=== PATIENT | female | born 1970 | race Caucasian/White ===

== ENCOUNTER 2017-10-04 14:20 | Inpatient (IN) | payer MEDICAID ==
[~2017-10-04] VITALS: Ht 170.2 cm; Wt 65.0 kg
[~2017-10-04 14:20] MED LIST: ALBU6.7H INH; ASPI-611 PO; BECL7.3A INH; GABA600T PO; INSU100V11 SQ; INSU100V9 SQ; LIRA0.6P SQ; LISI2.5T89 PO; METF500T7 PO; OMEP20TA5 PO; ONDA4TAB12 PO; PARO-62 PO; SIMV20TA5 PO; VAL5T PO
[2017-10-04] MEDS ORDERED: normal saline 1000ML IV soln IVB ONE (14:35)
[2017-10-04] MEDS ORDERED: insulin regular, human 100 UNIT in normal saline 100ml IV soln 100 ML IV PRN ×2 (14:45)
[2017-10-04] MEDS ORDERED: morphine 5 MG/ML injection IV ONE (15:25)
[2017-10-04 15:26] LABS: ABG BASE EXCESS -32.2 mmol/L (-2.0-3.0); ABG HCO3 1.8 mmol/L (22.0-26.0); ABG OXYGEN SATURATION 98.2 % (95-98); ABG PCO2 (T) 11.8 mmHg (32.0-45.0); ABG PH (T) 6.794 (7.350-7.450); ABG PO2 (T) 139.9 mmHg (83-108); FCOHb 0.6 % (0.5-1.5); FMetHb 0.4 % (0.3-1.12); FO2Hb 97.2 % (94-100); TOTAL HEMOGLOBIN 15.5 G/dl (12.0-16.0)
[2017-10-04 15:37] LABS: BASOPHILS # (AUTO) 0.1 X10'3 (0-0.2); BASOPHILS % (AUTO) 0.2 % (0-1); EOSINOPHILS % (AUTO) 0 % (0-6); HEMOGLOBIN 11.5 g/dl (12.0-16.0); LYMPHOCYTES # (AUTO) 1.2 X10'3 (1.1-4.8); LYMPHOCYTES % (AUTO) 4.6 % (21-51); MEAN CORPUSCULAR HEMOGLOBIN 29.7 PG (27.0-31.0); MEAN CORPUSCULAR HGB CONC 32.8 % (33.0-36.5); MEAN CORPUSCULAR VOLUME 90.5 FL (78-98); MEAN PLATELET VOLUME 9.4 FL (7.4-10.4); MONOCYTES # (AUTO) 1.3 X10'3 (0-0.9); MONOCYTES % (AUTO) 4.7 % (2-12); NEUTROPHILS # (AUTO) 24.2 X10'3 (1.8-7.7); NEUTROPHILS % (AUTO) 90.5 % (42-75); PLATELET COUNT 232 X10'3 (140-440); RED BLOOD COUNT 3.86 X10'6 (4.20-5.60); RED CELL DISTRIBUTION WIDTH 13.5 % (11.5-14.5)
[2017-10-04 15:43] LABS: WHITE BLOOD COUNT 26.8 X10'3 (4.5-11.0)
[2017-10-04 15:56] LABS: ALANINE AMINOTRANSFERASE 40 U/L (12-78); ALBUMIN 2.1 G/DL (3.4-5.0); ALKALINE PHOSPHATASE 77 IU/L (46-116); ASPARTATE AMINO TRANSFERASE 27 U/L (10-37); BILIRUBIN,TOTAL 0.3 MG/DL (0.1-1.0); BLOOD UREA NITROGEN 29 MG/DL (7-18); BUN/CREATININE RATIO 27.9 (6.6-38.0); CHLORIDE 105 MMOL/L (99-107); CREATININE 1.04 MG/DL (0.40-0.90); MAGNESIUM 1.4 MG/DL (1.5-2.4); PHOSPHORUS 4.9 MG/DL (2.3-4.5); POTASSIUM 3.9 MMOL/L (3.5-5.1); SODIUM 136 MMOL/L (135-145); TOTAL PROTEIN 4.3 G/DL (6.4-8.2); eGFR 56 ML/MIN
[2017-10-04 15:58] LABS: ANION GAP 26 (8-16)
[2017-10-04 15:59] LABS: GLUCOSE 570 MG/DL (70-104); TOTAL CARBON DIOXIDE < 5 MMOL/L (24-32)
[2017-10-04 16:04] LABS: PLATELET ESTIMATE NORMAL; TOTAL CELLS COUNTED 100
[2017-10-04 16:05] LABS: BURR CELLS 1+
[2017-10-04] MEDS ORDERED: sodium phosphate inj. 30 MMOL in dextrose 5%-water 250 ML IV PRN (16:35)
[2017-10-04] MEDS ORDERED: potassium Cl 20 mEq SR tablet PO PRN ×2 (16:35)
[2017-10-04] MEDS ORDERED: insulin regular, human 10 units/0.1 ml syringe SQ PRN (16:35)
[2017-10-04] MEDS ORDERED: sodium phosphate inj. 15 MMOL in dextrose 5%-water 150 ML IV PRN (16:35)
[2017-10-04] MEDS ORDERED: potassium Cl 40MEQ/NS 500ml 500 ML IV PRN ×2 (16:35)
[2017-10-04] MEDS ORDERED: Neutra Phos packet PO PRN (16:35)
[2017-10-04] MEDS ORDERED: vancomycin/NS 1 GM ADD-VANTAGE 250 ML IV ONE (18:37)
[2017-10-04] MEDS: [UNRECOGNIZED DRUG - OTHER] IV SCH ×4 (18:41)
[2017-10-04] MEDS: SODIUM BICARBONATE IV SCH ×4 (18:41)
[2017-10-04] MEDS: POTASSIUM CL IV SCH ×4 (18:41)
[2017-10-04] MEDS: normal saline 1000ml 1,000 ML IV SCH ×2 (18:44→19:46)
[2017-10-04] MEDS: aztreonam inj. 2,000 MG in normal saline 100ml IV soln 100 ML IV SCH (19:15)
[2017-10-04 20:11] LABS: ALANINE AMINOTRANSFERASE 65 U/L (12-78); ALBUMIN 3.3 G/DL (3.4-5.0); ALKALINE PHOSPHATASE 118 IU/L (46-116); ANION GAP 27 (8-16); ASPARTATE AMINO TRANSFERASE 41 U/L (10-37); BILIRUBIN,TOTAL 0.4 MG/DL (0.1-1.0); BLOOD UREA NITROGEN 35 MG/DL (7-18); BUN/CREATININE RATIO 25.4 (6.6-38.0); CHLORIDE 101 MMOL/L (99-107); CREATININE 1.38 MG/DL (0.40-0.90); PHOSPHORUS 4.7 MG/DL (2.3-4.5); POTASSIUM 4.7 MMOL/L (3.5-5.1); SODIUM 135 MMOL/L (135-145); TOTAL PROTEIN 6.7 G/DL (6.4-8.2); eGFR 41 ML/MIN
[2017-10-04 20:19] LABS: GLUCOSE 455 MG/DL (70-104); TOTAL CARBON DIOXIDE 7.4 MMOL/L (24-32)
[2017-10-04] MEDS: insulin regular, DKA only 100 UNIT in normal saline 100ml IV soln 99 ML IV SCH ×4 (20:31→22:34)
[2017-10-04] MEDS ORDERED: DEXTROSE 10 % AND 0.45 % NACL 1,000 ML IV PRN (21:05)
[2017-10-04] MEDS ORDERED: 1/4 NS IV PRN (21:05)
[2017-10-04] MEDS ORDERED: POTASSIUM CL IV PRN (21:05)
[2017-10-04] MEDS ORDERED: DEXTROSE 5% IV PRN (21:05)
[2017-10-04] MEDS ORDERED: Potassium Cl inj 20 MEQ in DEXTROSE 10 % AND 0.45 % NACL 1,000 ML IV PRN (21:05)
[2017-10-04] MEDS ORDERED: Potassium Cl inj 20 MEQ in dextrose 5%-1/2 normal saline 1,000 ML IV PRN (21:10)
[2017-10-04 22:51] LABS: ALBUMIN 2.9 G/DL (3.4-5.0); ANION GAP 22 (8-16); BLOOD UREA NITROGEN 34 MG/DL (7-18); BUN/CREATININE RATIO 28.8 (6.6-38.0); CALCIUM 7.2 MG/DL (8.5-10.1); CHLORIDE 107 MMOL/L (99-107); CREATININE 1.18 MG/DL (0.40-0.90); GLUCOSE 301 MG/DL (70-104); PHOSPHORUS 3.3 MG/DL (2.3-4.5); SODIUM 138 MMOL/L (135-145); eGFR 49 ML/MIN
[2017-10-04 22:53] LABS: TOTAL CARBON DIOXIDE 8.6 MMOL/L (24-32)
[2017-10-04 23:15] VITALS: BP 90/56
[2017-10-05 00:01] LABS: ABG BASE EXCESS -19.5 mmol/L (-2.0-3.0); ABG HCO3 7.5 mmol/L (22.0-26.0); ABG OXYGEN SATURATION 95.1 % (95-98); ABG PCO2 (T) 21.9 mmHg (32.0-45.0); ABG PH (T) 7.151 (7.350-7.450); ABG PO2 (T) 67.8 mmHg (83-108); ALLEN'S TEST Positive; FCOHb 0.1 % (0.5-1.5); FMetHb 0.2 % (0.3-1.12); FO2Hb 94.8 % (94-100)
[2017-10-05] MEDS: dextrose 5%-1/2 normal saline 1,000 ML IV PRN ×3 (00:03→09:18)
[2017-10-05] MEDS: aztreonam inj. 2,000 MG in normal saline 100ml IV soln 100 ML IV SCH ×3 (00:47→16:37)
[2017-10-05] MEDS ORDERED: insulin R INFUSION 1 ML IV ONE (01:58)
[2017-10-05] MEDS: POTASSIUM CL IV SCH ×16 (02:32→18:24)
[2017-10-05] MEDS: SODIUM BICARBONATE IV SCH ×16 (02:32→18:24)
[2017-10-05] MEDS: [UNRECOGNIZED DRUG - OTHER] IV SCH ×16 (02:32→18:24)
[2017-10-05] MEDS: insulin regular, DKA only 100 UNIT in normal saline 100ml IV soln 99 ML IV SCH ×4 (02:47→09:42)
[2017-10-05 02:48] LABS: ALANINE AMINOTRANSFERASE 49 U/L (12-78); ALBUMIN 2.6 G/DL (3.4-5.0); ALBUMIN/GLOBULIN RATIO 0.9 (1.1-1.5); ALKALINE PHOSPHATASE 87 IU/L (46-116); ANION GAP 15 (8-16); ASPARTATE AMINO TRANSFERASE 26 U/L (10-37); BILIRUBIN,TOTAL 0.4 MG/DL (0.1-1.0); BLOOD UREA NITROGEN 31 MG/DL (7-18); BUN/CREATININE RATIO 28.2 (6.6-38.0); CALCIUM 6.9 MG/DL (8.5-10.1); CHLORIDE 110 MMOL/L (99-107); GLUCOSE 181 MG/DL (70-104); MAGNESIUM 2.2 MG/DL (1.5-2.4); PHOSPHORUS 1.9 MG/DL (2.3-4.5); POTASSIUM 4.2 MMOL/L (3.5-5.1); SODIUM 138 MMOL/L (135-145); TOTAL PROTEIN 5.4 G/DL (6.4-8.2); eGFR 53 ML/MIN
[2017-10-05 02:50] LABS: TOTAL CARBON DIOXIDE 13.3 MMOL/L (24-32)
[2017-10-05 03:00] VITALS: BP 97/62
[2017-10-05 06:00] VITALS: BP 99/60
[2017-10-05 06:24] LABS: BASOPHILS % (AUTO) 0 % (0-1); EOSINOPHILS # (AUTO) 0.2 X10'3 (0-0.9); HEMATOCRIT 37.2 % (35.0-45.0); HEMOGLOBIN 12.5 g/dl (12.0-16.0); LYMPHOCYTES # (AUTO) 1.5 X10'3 (1.1-4.8); LYMPHOCYTES % (AUTO) 7.5 % (21-51); MEAN CORPUSCULAR HEMOGLOBIN 29.9 PG (27.0-31.0); MEAN CORPUSCULAR HGB CONC 33.6 % (33.0-36.5); MEAN CORPUSCULAR VOLUME 89.1 FL (78-98); MEAN PLATELET VOLUME 9.1 FL (7.4-10.4); MONOCYTES # (AUTO) 0.6 X10'3 (0-0.9); MONOCYTES % (AUTO) 3.1 % (2-12); NEUTROPHILS # (AUTO) 17.4 X10'3 (1.8-7.7); NEUTROPHILS % (AUTO) 88.4 % (42-75); PLATELET COUNT 165 X10'3 (140-440); RED BLOOD COUNT 4.18 X10'6 (4.20-5.60); RED CELL DISTRIBUTION WIDTH 13.5 % (11.5-14.5); WHITE BLOOD COUNT 19.7 X10'3 (4.5-11.0)
[2017-10-05 06:29] LABS: ALANINE AMINOTRANSFERASE 48 U/L (12-78); ALBUMIN 2.4 G/DL (3.4-5.0); ALBUMIN/GLOBULIN RATIO 0.9 (1.1-1.5); ALKALINE PHOSPHATASE 80 IU/L (46-116); ANION GAP 12 (8-16); ASPARTATE AMINO TRANSFERASE 22 U/L (10-37); BILIRUBIN,TOTAL 0.2 MG/DL (0.1-1.0); BLOOD UREA NITROGEN 28 MG/DL (7-18); BUN/CREATININE RATIO 26.7 (6.6-38.0); CALCIUM 6.9 MG/DL (8.5-10.1); CHLORIDE 111 MMOL/L (99-107); CREATININE 1.05 MG/DL (0.40-0.90); GLUCOSE 161 MG/DL (70-104); MAGNESIUM 2.4 MG/DL (1.5-2.4); POTASSIUM 4.2 MMOL/L (3.5-5.1); SODIUM 139 MMOL/L (135-145); TOTAL CARBON DIOXIDE 16.2 MMOL/L (24-32); TOTAL PROTEIN 5.1 G/DL (6.4-8.2); eGFR 56 ML/MIN
[2017-10-05] MEDS: K and/or MAG REPLACEMENT MC SCH (08:00)
[2017-10-05] MEDS: PARoxetine 20mg tablet PO SCH (08:00)
[2017-10-05] MEDS ORDERED: vancomycin/NS 1 GM ADD-VANTAGE 250 ML IV SCH (08:00)
[2017-10-05 08:37] LABS: PLATELET ESTIMATE NORMAL; TOTAL CELLS COUNTED 100
[2017-10-05 08:38] LABS: BURR CELLS 2+
[2017-10-05 08:39] LABS: GIANT PLATELET FEW; HYPOGRANULAR PLATELETS FEW; LARGE PLATELETS FEW
[2017-10-05 08:40] LABS: SCHISTOCYTES FEW
[2017-10-05] MEDS: VANCOMYCIN 750MG IV in NS 250 ML IV SCH ×2 (10:39→20:23)
[2017-10-05 11:00] VITALS: BP 100/57
[2017-10-05 11:15] LABS: CLARITY,URINE CLOUDY (Clear); COLOR,URINE YELLOW (Yellow); GLUCOSE, URINE >=1000 mg/dl (Neg); KETONES,URINE >=80 mg/dl (Neg); LEUKOCYTE ESTERASE ,URINE NEGATIVE (Neg); NITRITES, URINE NEGATIVE (Neg); OCCULT BLOOD,URINE TRACE-INTACT (Neg); PH,URINE 5.5 (4.8-8.0); PROTEIN,URINE TRACE mg/dl (Neg); UA COLLECTION TYPE NON-SPECIFIED; UROBILINOGEN,URINE 0.2 E.U/dL (0.2-1.0)
[2017-10-05 11:26] LABS: URINE AMPHETAMINE SCREEN NEGATIVE (Neg); URINE BARBITUATE SCREEN NEGATIVE (Neg); URINE BENZODIAZEPINES SCREEN POSITIVE (Neg); URINE CANNABINOID SCREEN NEGATIVE (Neg); URINE COCAINE SCREEN NEGATIVE (Neg); URINE METHADONE SCREEN NEGATIVE (Neg); URINE OPIATE SCREEN POSITIVE (Neg); URINE PHENCYCLIDINE SCREEN NEGATIVE (Neg)
[2017-10-05 11:27] LABS: ALBUMIN 2.6 G/DL (3.4-5.0); AMYLASE 395 U/L (25-115); ANION GAP 9 (8-16); BLOOD UREA NITROGEN 25 MG/DL (7-18); BUN/CREATININE RATIO 24.3 (6.6-38.0); CALCIUM 7.2 MG/DL (8.5-10.1); CHLORIDE 110 MMOL/L (99-107); CREATININE 1.03 MG/DL (0.40-0.90); GLUCOSE 122 MG/DL (70-104); LIPASE 195 U/L (73-393); PHOSPHORUS 1.6 MG/DL (2.3-4.5); POTASSIUM 4.3 MMOL/L (3.5-5.1); SODIUM 138 MMOL/L (135-145); TOTAL CARBON DIOXIDE 19.1 MMOL/L (24-32); eGFR 57 ML/MIN
[2017-10-05 11:30] LABS: SQUAMOUS EPITHELIAL CELL,UR MODERATE /LPF (FEW)
[2017-10-05] MEDS ORDERED: albuterol 2.5 MG/3 ML nebule NEB PRN (11:30)
[2017-10-05 11:32] LABS: FINE GRANULAR CAST >30 /LPF (NEGATIVE)
[2017-10-05 11:34] LABS: AMORPHOUS URATES 1+; BACTERIA,URINE 1+ /HPF (Neg); RBC,URINE 0-2 /HPF (0-2); WBC,URINE 0-4 /HPF (0-4); YEAST MODERATE /HPF (NEGATIVE)
[2017-10-05] MEDS ORDERED: MESSAGE TO PHARMACY PO ONE (11:50)
[2017-10-05] MEDS ORDERED: dextrose ORAL solution 15 GM/59 ML bottle PO PRN ×2 (11:50)
[2017-10-05] MEDS ORDERED: dextrose 50%-water 50ml dispensing syringe IV PRN ×2 (11:50)
[2017-10-05] MEDS ORDERED: glucagon, human recombinant 1mg kit SUBCUT PRN (11:50)
[2017-10-05] MEDS ORDERED: ondansetron 4mg rapidly disintigrating tab PO ONE (16:00)
[2017-10-05] MEDS: insulin Lispro (HumaLOG) vial - multi-dose SQ SCH ×2 (16:45→18:58)
[2017-10-05] MEDS ORDERED: ondansetron 4mg rapidly disintigrating tab PO PRN (17:25)
[2017-10-05 19:00] VITALS: BP 92/50
[2017-10-05 20:50] LABS: ALANINE AMINOTRANSFERASE 48 U/L (12-78); ALBUMIN 2.4 G/DL (3.4-5.0); ALBUMIN/GLOBULIN RATIO 0.9 (1.1-1.5); ALKALINE PHOSPHATASE 79 IU/L (46-116); ANION GAP 9 (8-16); ASPARTATE AMINO TRANSFERASE 29 U/L (10-37); BILIRUBIN,TOTAL 0.3 MG/DL (0.1-1.0); BLOOD UREA NITROGEN 22 MG/DL (7-18); CALCIUM 6.9 MG/DL (8.5-10.1); CHLORIDE 108 MMOL/L (99-107); GLUCOSE 246 MG/DL (70-104); PHOSPHORUS 1.4 MG/DL (2.3-4.5); POTASSIUM 4.2 MMOL/L (3.5-5.1); SODIUM 136 MMOL/L (135-145); TOTAL CARBON DIOXIDE 19.3 MMOL/L (24-32); TOTAL PROTEIN 5.1 G/DL (6.4-8.2); eGFR 59 ML/MIN
[2017-10-05] MEDS: diatr meglu/diatrizoate 30ml oral sol.-(3 dose) bottle PO SCH (21:34)
[2017-10-05] MEDS: Insulin Detemir pen SQ SCH (21:42)
[2017-10-05 23:00] VITALS: BP 94/60
[2017-10-06] MEDS: aztreonam inj. 2,000 MG in normal saline 100ml IV soln 100 ML IV SCH ×2 (00:06→07:28)
[2017-10-06 03:00] VITALS: BP 98/60
[2017-10-06] MEDS: SODIUM BICARBONATE IV SCH ×8 (03:21→10:35)
[2017-10-06] MEDS: POTASSIUM CL IV SCH ×8 (03:21→10:35)
[2017-10-06] MEDS: [UNRECOGNIZED DRUG - OTHER] IV SCH ×8 (03:21→10:35)
[2017-10-06 06:00] VITALS: BP 93/55
[2017-10-06 06:15] LABS: ALANINE AMINOTRANSFERASE 41 U/L (12-78); ALBUMIN 2.3 G/DL (3.4-5.0); ALBUMIN/GLOBULIN RATIO 0.9 (1.1-1.5); ANION GAP 6 (8-16); ASPARTATE AMINO TRANSFERASE 21 U/L (10-37); BILIRUBIN,TOTAL 0.3 MG/DL (0.1-1.0); BLOOD UREA NITROGEN 17 MG/DL (7-18); BUN/CREATININE RATIO 23.6 (6.6-38.0); CALCIUM 7.3 MG/DL (8.5-10.1); CHLORIDE 110 MMOL/L (99-107); CREATININE 0.72 MG/DL (0.40-0.90); GLUCOSE 63 MG/DL (70-104); MAGNESIUM 3.4 MG/DL (1.5-2.4); SODIUM 141 MMOL/L (135-145); TOTAL CARBON DIOXIDE 25.5 MMOL/L (24-32); eGFR 86 ML/MIN
[2017-10-06 06:16] LABS: ALKALINE PHOSPHATASE 76 IU/L (46-116)
[2017-10-06] MEDS: diatr meglu/diatrizoate 30ml oral sol.-(3 dose) bottle PO SCH ×2 (07:27→08:44)
[2017-10-06] MEDS: K and/or MAG REPLACEMENT MC SCH (08:00)
[2017-10-06] MEDS: PARoxetine 20mg tablet PO SCH (08:43)
[2017-10-06] MEDS: VANCOMYCIN 750MG IV in NS 250 ML IV SCH (08:45)
[2017-10-06 11:00] VITALS: BP 95/60
[2017-10-06 11:21] LABS: ALANINE AMINOTRANSFERASE 46 U/L (12-78); ALBUMIN 2.4 G/DL (3.4-5.0); ALBUMIN/GLOBULIN RATIO 0.9 (1.1-1.5); ALKALINE PHOSPHATASE 86 IU/L (46-116); ANION GAP 4 (8-16); ASPARTATE AMINO TRANSFERASE 45 U/L (10-37); BILIRUBIN,TOTAL 0.4 MG/DL (0.1-1.0); BLOOD UREA NITROGEN 16 MG/DL (7-18); CALCIUM 7.3 MG/DL (8.5-10.1); CHLORIDE 111 MMOL/L (99-107); CREATININE 0.84 MG/DL (0.40-0.90); GLUCOSE 97 MG/DL (70-104); MAGNESIUM 3.4 MG/DL (1.5-2.4); POTASSIUM 4.3 MMOL/L (3.5-5.1); SODIUM 141 MMOL/L (135-145); TOTAL CARBON DIOXIDE 26.3 MMOL/L (24-32); TOTAL PROTEIN 5.1 G/DL (6.4-8.2); eGFR 72 ML/MIN
[2017-10-06] MEDS: insulin Lispro (HumaLOG) vial - multi-dose SQ SCH ×3 (14:28→21:37)
[2017-10-06 15:00] VITALS: BP 106/64
[2017-10-06 19:00] VITALS: BP 112/70
[2017-10-06] MEDS ORDERED: VANCOMYCIN LEVEL IV ONE (19:30)
[2017-10-06] MEDS ORDERED: vancomycin/NS 1 GM ADD-VANTAGE 250 ML IV SCH (20:00)
[2017-10-06] MEDS: Insulin Detemir pen SQ SCH (21:36)
[2017-10-06 23:00] VITALS: BP 102/64
[2017-10-07 03:00] VITALS: BP 101/62
[2017-10-07 05:47] LABS: BASOPHILS % (AUTO) 0.4 % (0-1); EOSINOPHILS % (AUTO) 0.6 % (0-6); HEMATOCRIT 34.9 % (35.0-45.0); HEMOGLOBIN 11.6 g/dl (12.0-16.0); LYMPHOCYTES # (AUTO) 2.3 X10'3 (1.1-4.8); LYMPHOCYTES % (AUTO) 29.1 % (21-51); MEAN CORPUSCULAR HEMOGLOBIN 29.6 PG (27.0-31.0); MEAN CORPUSCULAR HGB CONC 33.2 % (33.0-36.5); MEAN CORPUSCULAR VOLUME 89.1 FL (78-98); MEAN PLATELET VOLUME 8.8 FL (7.4-10.4); MONOCYTES # (AUTO) 0.4 X10'3 (0-0.9); MONOCYTES % (AUTO) 5.6 % (2-12); NEUTROPHILS # (AUTO) 5.1 X10'3 (1.8-7.7); NEUTROPHILS % (AUTO) 64.3 % (42-75); PLATELET COUNT 114 X10'3 (140-440); RED BLOOD COUNT 3.92 X10'6 (4.20-5.60); RED CELL DISTRIBUTION WIDTH 14.4 % (11.5-14.5); WHITE BLOOD COUNT 7.9 X10'3 (4.5-11.0)
[2017-10-07 06:00] VITALS: BP 99/68
[2017-10-07 06:36] LABS: ALANINE AMINOTRANSFERASE 72 U/L (12-78); ALBUMIN 2.4 G/DL (3.4-5.0); ALBUMIN/GLOBULIN RATIO 0.9 (1.1-1.5); ALKALINE PHOSPHATASE 129 IU/L (46-116); ANION GAP 6 (8-16); ASPARTATE AMINO TRANSFERASE 91 U/L (10-37); BILIRUBIN,TOTAL 0.5 MG/DL (0.1-1.0); BLOOD UREA NITROGEN 15 MG/DL (7-18); BUN/CREATININE RATIO 24.2 (6.6-38.0); CALCIUM 7.4 MG/DL (8.5-10.1); CHLORIDE 110 MMOL/L (99-107); CREATININE 0.62 MG/DL (0.40-0.90); GLUCOSE 55 MG/DL (70-104); MAGNESIUM 2.7 MG/DL (1.5-2.4); POTASSIUM 3.6 MMOL/L (3.5-5.1); SODIUM 143 MMOL/L (135-145); TOTAL CARBON DIOXIDE 27.5 MMOL/L (24-32); TOTAL PROTEIN 5.1 G/DL (6.4-8.2); eGFR > 90 ML/MIN
[2017-10-07] MEDS ORDERED: LACTOBACILLUS RHAMNOSUS GG 15 billion unit sprinkle caps PO SCH (07:30)
[2017-10-07] MEDS: K and/or MAG REPLACEMENT MC SCH (08:00)
[2017-10-07] MEDS: PARoxetine 20mg tablet PO SCH (08:20)
[2017-10-07 11:00] VITALS: BP 97/62
[2017-10-07] MEDS ORDERED: ondansetron 4mg rapidly disintigrating tab PO PRN (12:05)
[2017-10-07] MEDS ORDERED: diazepam 5mg tablet PO PRN (12:05)
[2017-10-07] MEDS: insulin Lispro (HumaLOG) vial - multi-dose SQ SCH (12:22)
[2017-10-07] MEDS ORDERED: gabapentin 300mg capsule PO SCH (13:00)
[2017-10-07] MEDS ORDERED: METR500T4 PO (13:09)
[2017-10-07] MEDS ORDERED: CIPR-230 PO (13:09)
[2017-10-07 15:00] VITALS: BP 103/65
[2017-10-07 19:00] VITALS: BP 117/68
[2017-10-07] MEDS ORDERED: non-formulary drug (Insulin Glargine,Hum.rec.anlog (Lantus) 20 UNIT) SQ SCH (20:00)
[2017-10-07] MEDS ORDERED: metFORMIN 500mg tablet PO SCH (20:00)
[2017-10-08] MEDS ORDERED: VANCOMYCIN LEVEL IV ONE (07:30)
[2017-10-08] MEDS ORDERED: pantoprazole 40mg Tablet.DR PO SCH (07:30)
[2017-10-08] MEDS ORDERED: LIRAGLUTIDE SQ SCH (08:00)
[2017-10-08] MEDS ORDERED: fluticasone furoate 100MCG/puff inhaler IH SCH (08:00)
[2017-10-08] MEDS ORDERED: aspirin 81mg tablet.DR PO SCH (08:00)
[2017-10-08] MEDS ORDERED: lisinopril 2.5mg tablet PO SCH (08:00)
[2017-10-08] MEDS ORDERED: atorvastatin 10mg tablet PO SCH (08:00)
== END 2017-10-07 19:30 | disposition home health service (06) | DRG 420 ==
LOC: ER 14:21 → ED HOLD 19:20 → PCU 3S 23:00
PROVIDERS: ADMIT Internal Medicine Critical Care Medicine; ATTEND Internal Medicine Critical Care Medicine
DX: E11.10 Type 2 diabetes mellitus with ketoacidosis without coma (principal); I50.9 Heart failure, unspecified; I48.91 Unspecified atrial fibrillation; F11.23 Opioid dependence with withdrawal; E78.00 Pure hypercholesterolemia, unspecified; F41.9 Anxiety disorder, unspecified; G89.29 Other chronic pain; J06.9 Acute upper respiratory infection, unspecified; J45.909 Unspecified asthma, uncomplicated; K21.9 Gastro-esophageal reflux disease without esophagitis; K57.92 Diverticulitis of intestine, part unspecified, without perforation or abscess without bleeding; L08.9 Local infection of the skin and subcutaneous tissue, unspecified; Z85.41 Personal history of malignant neoplasm of cervix uteri; Z88.1 Allergy status to other antibiotic agents; Z88.0 Allergy status to penicillin; Z88.8 Allergy status to other drugs, medicaments and biological substances; Z79.82 Long term (current) use of aspirin; Z79.4 Long term (current) use of insulin; Z79.899 Other long term (current) drug therapy; Z90.49 Acquired absence of other specified parts of digestive tract; Z88.2 Allergy status to sulfonamides
CPT/HCPCS: 36415; 36600; 74177; 80048; 80053; 80305; 81001; 82150; 82803; 82948; 83605; 83690; 83735; 84100; 85018; 85025; 87040; 87070; 87077; 87088; 94760; 96361; 96365; 96366; 96375; 99291; A6212; J1815; J2270; J3370; J3475; J3480; J3490; J7030; J7060; Q9963

== ENCOUNTER 2017-12-07 04:13 | Outpatient (CLI) | payer MEDICAID | END 2017-12-07 23:59 | disposition home or self-care (01) | LOC: DIABETIC 04:13 | PROVIDERS: ATTEND Family Medicine | DX: E11.9 Type 2 diabetes mellitus without complications (principal) | CPT/HCPCS: G0108 ==

== ENCOUNTER 2017-12-12 21:14 | Emergency (ER) | payer MEDICAID ==
[~2017-12-12] VITALS: Ht 170.2 cm; Wt 60.9 kg
[2017-12-12] MEDS ORDERED: normal saline 1000ML IV soln IVB ONE (21:50)
[2017-12-12] MEDS ORDERED: insulin regular, human 10 units/0.1 ml syringe IV ONE (21:50)
[2017-12-12 22:23] LABS: BASOPHILS % (AUTO) 0.4 % (0-1); EOSINOPHILS # (AUTO) 0.2 X10'3 (0-0.9); EOSINOPHILS % (AUTO) 2.9 % (0-6); HEMATOCRIT 40.5 % (35.0-45.0); HEMOGLOBIN 13.6 g/dl (12.0-16.0); LYMPHOCYTES # (AUTO) 2.2 X10'3 (1.1-4.8); LYMPHOCYTES % (AUTO) 29.5 % (21-51); MEAN CORPUSCULAR HGB CONC 33.6 % (33.0-36.5); MEAN CORPUSCULAR VOLUME 89.3 FL (78-98); MEAN PLATELET VOLUME 9.5 FL (7.4-10.4); MONOCYTES # (AUTO) 0.5 X10'3 (0-0.9); MONOCYTES % (AUTO) 6.2 % (2-12); NEUTROPHILS # (AUTO) 4.7 X10'3 (1.8-7.7); PLATELET COUNT 195 X10'3 (140-440); RED BLOOD COUNT 4.54 X10'6 (4.20-5.60); RED CELL DISTRIBUTION WIDTH 14.3 % (11.5-14.5); WHITE BLOOD COUNT 7.6 X10'3 (4.5-11.0)
[2017-12-12 22:33] LABS: CLARITY,URINE CLEAR (Clear); COLOR,URINE YELLOW (Yellow); GLUCOSE, URINE >=1000 mg/dl (Neg); KETONES,URINE NEGATIVE (Neg); LEUKOCYTE ESTERASE ,URINE NEGATIVE (Neg); NITRITES, URINE NEGATIVE (Neg); OCCULT BLOOD,URINE NEGATIVE (Neg); PROTEIN,URINE NEGATIVE (Neg); UROBILINOGEN,URINE 0.2 E.U/dL (0.2-1.0)
[2017-12-12 22:38] LABS: ALANINE AMINOTRANSFERASE 60 U/L (12-78); ALBUMIN 3.1 G/DL (3.4-5.0); ALBUMIN/GLOBULIN RATIO 0.9 (1.1-1.5); ALKALINE PHOSPHATASE 89 IU/L (46-116); ANION GAP 6 (8-16); ASPARTATE AMINO TRANSFERASE 42 U/L (10-37); BILIRUBIN,TOTAL 0.3 MG/DL (0.1-1.0); BLOOD UREA NITROGEN 20 MG/DL (7-18); BUN/CREATININE RATIO 27.4 (6.6-38.0); CALCIUM 8.7 MG/DL (8.5-10.1); CHLORIDE 105 MMOL/L (99-107); CREATININE 0.73 MG/DL (0.40-0.90); GLUCOSE 272 MG/DL (70-104); POTASSIUM 4.2 MMOL/L (3.5-5.1); SODIUM 141 MMOL/L (135-145); TOTAL CARBON DIOXIDE 30.2 MMOL/L (24-32); TOTAL PROTEIN 6.6 G/DL (6.4-8.2); eGFR 85 ML/MIN
[2017-12-12 22:40] LABS: UA COLLECTION TYPE CLN CATCH MIDSTREAM
[2017-12-12 22:41] LABS: BACTERIA,URINE NONE SEEN /HPF (Neg); RBC,URINE NONE SEEN /HPF (0-2); SQUAMOUS EPITHELIAL CELL,UR FEW /LPF (FEW); WBC,URINE NONE SEEN /HPF (0-4)
[2017-12-12 22:53] VITALS: BP 110/74
== END 2017-12-12 22:58 | disposition home or self-care (01) ==
LOC: ER 21:17
DX: E11.65 Type 2 diabetes mellitus with hyperglycemia (principal); I48.91 Unspecified atrial fibrillation; I49.9 Cardiac arrhythmia, unspecified; I50.9 Heart failure, unspecified; E78.00 Pure hypercholesterolemia, unspecified; J45.909 Unspecified asthma, uncomplicated; K21.9 Gastro-esophageal reflux disease without esophagitis; G89.29 Other chronic pain; Z90.49 Acquired absence of other specified parts of digestive tract; Z90.710 Acquired absence of both cervix and uterus; Z56.0 Unemployment, unspecified; Z85.89 Personal history of malignant neoplasm of other organs and systems; Z88.2 Allergy status to sulfonamides; Z88.0 Allergy status to penicillin; Z88.8 Allergy status to other drugs, medicaments and biological substances; Z79.82 Long term (current) use of aspirin; Z79.4 Long term (current) use of insulin; Z79.84 Long term (current) use of oral hypoglycemic drugs; Z79.899 Other long term (current) drug therapy
CPT/HCPCS: 36415; 80053; 81001; 82948; 85025; 96361; 96374; 99284; J1815; J7030

== ENCOUNTER 2018-01-10 01:13 | Outpatient (CLI) | payer MEDICAID | END 2018-01-10 23:59 | disposition home or self-care (01) | LOC: DIABETIC 01:13 | PROVIDERS: ATTEND Family Medicine | DX: E11.9 Type 2 diabetes mellitus without complications (principal) | CPT/HCPCS: G0108 ==

== ENCOUNTER 2018-02-05 13:05 | Inpatient (IN) | payer MEDICAID ==
[~2018-02-05] VITALS: Ht 170.2 cm; Wt 61.0 kg
[2018-02-05] MEDS ORDERED: insulin regular, human 10 units/0.1 ml syringe IV ONE (13:30)
[2018-02-05] MEDS ORDERED: normal saline 1000ML IV soln IV ONE (13:30)
[2018-02-05 14:01] LABS: ABG BASE EXCESS -25.1 mmol/L (-2.0-3.0); ABG HCO3 3.7 mmol/L (22.0-26.0); ABG OXYGEN SATURATION 97.7 % (95-98); ABG PCO2 (T) 14.1 mmHg (32.0-45.0); ABG PH (T) 7.033 (7.350-7.450); ABG PO2 (T) 129.5 mmHg (83-108); ALLEN'S TEST Positive; FCOHb 0.6 % (0.5-1.5); FMetHb 0.4 % (0.3-1.12); FO2Hb 96.7 % (94-100); RESPIRATORY RATE (OBSERVED) 24 b/min; TOTAL HEMOGLOBIN 16.4 G/dl (12.0-16.0)
[2018-02-05 14:02] LABS: BASOPHILS % (AUTO) 0.2 % (0-1); EOSINOPHILS % (AUTO) 0 % (0-6); HEMATOCRIT 53.4 % (35.0-45.0); HEMOGLOBIN 17.3 g/dl (12.0-16.0); LYMPHOCYTES # (AUTO) 0.8 X10'3 (1.1-4.8); LYMPHOCYTES % (AUTO) 3.9 % (21-51); MEAN CORPUSCULAR HGB CONC 32.4 % (33.0-36.5); MEAN CORPUSCULAR VOLUME 89.3 FL (78-98); MEAN PLATELET VOLUME 9.8 FL (7.4-10.4); MONOCYTES # (AUTO) 0.5 X10'3 (0-0.9); MONOCYTES % (AUTO) 2.5 % (2-12); NEUTROPHILS % (AUTO) 93.4 % (42-75); PLATELET COUNT 333 X10'3 (140-440); RED BLOOD COUNT 5.98 X10'6 (4.20-5.60); RED CELL DISTRIBUTION WIDTH 14.1 % (11.5-14.5); WHITE BLOOD COUNT 19.3 X10'3 (4.5-11.0)
[2018-02-05 14:20] LABS: ALANINE AMINOTRANSFERASE 31 U/L (12-78); ALBUMIN 4.4 G/DL (3.4-5.0); ALKALINE PHOSPHATASE 109 IU/L (46-116); ANION GAP 33 (8-16); ASPARTATE AMINO TRANSFERASE 10 U/L (10-37); BILIRUBIN,TOTAL 0.5 MG/DL (0.1-1.0); BLOOD UREA NITROGEN 36 MG/DL (7-18); BUN/CREATININE RATIO 22.8 (6.6-38.0); CALCIUM 9.8 MG/DL (8.5-10.1); CHLORIDE 95 MMOL/L (99-107); CREATININE 1.58 MG/DL (0.40-0.90); MAGNESIUM 2.5 MG/DL (1.5-2.4); SODIUM 134 MMOL/L (135-145); TOTAL PROTEIN 8.9 G/DL (6.4-8.2); eGFR 35 ML/MIN
[2018-02-05 14:30] LABS: GLUCOSE 664 MG/DL (70-104); POTASSIUM 6.7 MMOL/L (3.5-5.1); TOTAL CARBON DIOXIDE 6.4 MMOL/L (24-32)
[2018-02-05 14:32] LABS: PHOSPHORUS 6.6 MG/DL (2.3-4.5)
[2018-02-05] MEDS ORDERED: sodium bicarbonate (0.9mEq/ml) 44.6 mEq/50ml syringe IV ONE (14:40)
[2018-02-05] MEDS ORDERED: calcium chloride 100 MG/1 ML inj IV ONE (14:40)
[2018-02-05] MEDS ORDERED: furosemide 40mg/4ml inj IV ONE (14:40)
[2018-02-05] MEDS ORDERED: sodium bicarbonate (8.4%) 1 mEq/ml syringe IV ONE (14:45)
[2018-02-05] MEDS: insulin regular, DKA only 100 UNIT in normal saline 100ml IV soln 99 ML IV SCH ×4 (14:49→20:08)
[2018-02-05 14:58] LABS: CLARITY,URINE SLIGHTLY CLOUDY (Clear); COLOR,URINE YELLOW (Yellow); GLUCOSE, URINE >=1000 mg/dl (Neg); KETONES,URINE >=80 mg/dl (Neg); LEUKOCYTE ESTERASE ,URINE NEGATIVE (Neg); NITRITES, URINE NEGATIVE (Neg); OCCULT BLOOD,URINE SMALL (Neg); PROTEIN,URINE TRACE mg/dl (Neg); UROBILINOGEN,URINE 0.2 E.U/dL (0.2-1.0)
[2018-02-05 14:59] LABS: URINE HCG NEGATIVE (NEG)
[2018-02-05 15:00] LABS: UA COLLECTION TYPE STRAIGHT CATH
[2018-02-05 15:04] LABS: AMORPHOUS URATES 2+; BACTERIA,URINE NONE SEEN /HPF (Neg); MUCUS STRANDS FEW /LPF (Neg); RBC,URINE 0-2 /HPF (0-2); SQUAMOUS EPITHELIAL CELL,UR NONE SEEN /LPF (FEW); WBC,URINE NONE SEEN /HPF (0-4)
[2018-02-05] MEDS ORDERED: proCHLORperazine 10 MG/2 ml inj IV ONE (15:30)
[2018-02-05 18:06] LABS: ALBUMIN 4.1 G/DL (3.4-5.0); ANION GAP 24 (8-16); BLOOD UREA NITROGEN 35 MG/DL (7-18); BUN/CREATININE RATIO 25.2 (6.6-38.0); CALCIUM 9.3 MG/DL (8.5-10.1); CHLORIDE 101 MMOL/L (99-107); CREATININE 1.39 MG/DL (0.40-0.90); GLUCOSE 351 MG/DL (70-104); POTASSIUM 4.5 MMOL/L (3.5-5.1); SODIUM 141 MMOL/L (135-145); eGFR 40 ML/MIN
[2018-02-05] MEDS ORDERED: potassium CL 20mEq in D5-1/2NS 1,000 ML IV PRN ×2 (18:16→18:18)
[2018-02-05] MEDS ORDERED: normal saline 1000ml 1,000 ML IV STA (18:17)
[2018-02-05] MEDS ORDERED: insulin regular, DKA only 100 UNIT in normal saline 100ml IV soln 99 ML IV SCH ×2 (18:18)
[2018-02-05] MEDS ORDERED: sodium bicarbonate (8.4%) inj. 100 MEQ in sodium chloride 0.45% 500ml 500 ML IV PRN (18:18)
[2018-02-05] MEDS ORDERED: sodium bicarbonate (8.4%) inj. 50 MEQ in sodium chloride 0.45% 500ml 250 ML IV PRN (18:18)
[2018-02-05] MEDS: normal saline 1000ml 1,000 ML IV SCH ×2 (18:18→22:18)
[2018-02-05] MEDS ORDERED: potassium Cl 40MEQ/NS 500ml 500 ML IV PRN ×2 (18:20)
[2018-02-05] MEDS ORDERED: sodium phosphate inj. 30 MMOL in dextrose 5%-water 250 ML IV PRN (18:20)
[2018-02-05] MEDS ORDERED: insulin regular, human 10 units/0.1 ml syringe SQ PRN (18:20)
[2018-02-05] MEDS ORDERED: sodium phosphate inj. 15 MMOL in dextrose 5%-water 150 ML IV PRN (18:20)
[2018-02-05] MEDS ORDERED: Neutra Phos packet PO PRN (18:20)
[2018-02-05] MEDS ORDERED: potassium Cl 20 mEq SR tablet PO PRN ×2 (18:20)
[2018-02-05] MEDS ORDERED: magnesium 2GM in 50ml NS 50 ML IV PRN (18:25)
[2018-02-05] MEDS ORDERED: morphine 4 MG/ML inj SYRINge IV PRN ×2 (18:25)
[2018-02-05] MEDS ORDERED: magnesium Cl slow-release 64mg tablet PO PRN (18:25)
[2018-02-05] MEDS ORDERED: acetaminophen 325mg tablet PO PRN ×2 (18:25)
[2018-02-05] MEDS ORDERED: magnesium 4gm in 100ml NS 100 ML IV PRN (18:25)
[2018-02-05] MEDS ORDERED: bisacodyl 10mg suppository rectal RC PRN (18:25)
[2018-02-05] MEDS ORDERED: mag hydrox/Alum hydrox/simeth 30ml oral suspension PO PRN (18:25)
[2018-02-05] MEDS ORDERED: diazepam 5mg tablet PO PRN (18:30)
[2018-02-05] MEDS ORDERED: ipratropium/albuterol 3ml nebule NEB PRN (18:30)
[2018-02-05 18:57] LABS: HEMOGLOBIN A1C 9.8 % (4.5-6.2)
[2018-02-05 18:59] LABS: C-REACTIVE PROTEIN < 0.05 MG/DL (0.0-0.5)
[2018-02-05 19:30] VITALS: BP 99/67
[2018-02-05] MEDS ORDERED: BECLOMETHASONE DIPROPIONATE INH SCH (20:00)
[2018-02-05] MEDS ORDERED: OMEPRAZOLE PO SCH (20:00)
[2018-02-05] MEDS ORDERED: proCHLORperazine 10 MG/2 ml inj IV PRN (20:15)
[2018-02-05] MEDS: heparin, porcine 5000 units/ml vial SQ SCH (20:29)
[2018-02-05] MEDS: ondansetron/PF 4mg/2ml inj IV PRN (20:29)
[2018-02-05] MEDS: pantoprazole 40mg Tablet.DR PO SCH (20:30)
[2018-02-05] MEDS: docusate sod 100mg capsule PO SCH (20:30)
[2018-02-05] MEDS: atorvastatin 10mg tablet PO SCH (20:30)
[2018-02-05] MEDS: dextrose 5%-1/2 normal saline 1,000 ML IV SCH (20:31)
[2018-02-05] MEDS ORDERED: SIMVASTATIN PO SCH (21:00)
[2018-02-05 22:14] LABS: ALBUMIN 3.2 G/DL (3.4-5.0); ANION GAP 15 (8-16); BLOOD UREA NITROGEN 28 MG/DL (7-18); BUN/CREATININE RATIO 23.1 (6.6-38.0); CALCIUM 8.3 MG/DL (8.5-10.1); CHLORIDE 109 MMOL/L (99-107); CREATININE 1.21 MG/DL (0.40-0.90); GLUCOSE 171 MG/DL (70-104); MAGNESIUM 1.7 MG/DL (1.5-2.4); PHOSPHORUS 2.5 MG/DL (2.3-4.5); POTASSIUM 4.2 MMOL/L (3.5-5.1); SODIUM 146 MMOL/L (135-145); TOTAL CARBON DIOXIDE 22.5 MMOL/L (24-32); eGFR 47 ML/MIN
[2018-02-05 23:00] VITALS: BP 90/61
[2018-02-05] MEDS: gabapentin 300mg capsule PO SCH (23:40)
[2018-02-06] VITALS (7 sets, daily range): BP systolic 85–105; BP diastolic 47–69
[2018-02-06] MEDS ORDERED: GABAPENTIN PO SCH
[2018-02-06] MEDS ORDERED: dextrose ORAL solution 15 GM/59 ML bottle PO PRN ×2 (01:05)
[2018-02-06] MEDS ORDERED: MESSAGE TO PHARMACY PO ONE (01:05)
[2018-02-06] MEDS ORDERED: glucagon, human recombinant 1mg kit SUBCUT PRN (01:05)
[2018-02-06] MEDS ORDERED: dextrose 50%-water 50ml dispensing syringe IV PRN ×2 (01:05)
[2018-02-06] MEDS: normal saline 1000ml 1,000 ML IV SCH ×8 (01:08→22:19)
[2018-02-06] MEDS: HYDROcodone/acetaminophen 10/325mg tab PO PRN ×3 (01:10→19:15)
[2018-02-06] MEDS: metoclopramide 5 mg/ml inj IV PRN ×2 (01:40→09:47)
[2018-02-06] MEDS: insulin Lispro (HumaLOG) vial - multi-dose SQ SCH ×4 (02:09→13:24)
[2018-02-06 02:32] LABS: BASOPHILS % (AUTO) 0.3 % (0-1); EOSINOPHILS # (AUTO) 0.1 X10'3 (0-0.9); EOSINOPHILS % (AUTO) 0.9 % (0-6); HEMATOCRIT 38.1 % (35.0-45.0); HEMOGLOBIN 12.9 g/dl (12.0-16.0); LYMPHOCYTES # (AUTO) 1.8 X10'3 (1.1-4.8); LYMPHOCYTES % (AUTO) 16.5 % (21-51); MEAN CORPUSCULAR HEMOGLOBIN 29.4 PG (27.0-31.0); MEAN CORPUSCULAR HGB CONC 33.7 % (33.0-36.5); MEAN CORPUSCULAR VOLUME 87.1 FL (78-98); MEAN PLATELET VOLUME 9.1 FL (7.4-10.4); MONOCYTES # (AUTO) 0.7 X10'3 (0-0.9); MONOCYTES % (AUTO) 6.7 % (2-12); NEUTROPHILS # (AUTO) 8.4 X10'3 (1.8-7.7); NEUTROPHILS % (AUTO) 75.6 % (42-75); PLATELET COUNT 235 X10'3 (140-440); RED BLOOD COUNT 4.38 X10'6 (4.20-5.60); RED CELL DISTRIBUTION WIDTH 14.1 % (11.5-14.5); WHITE BLOOD COUNT 11.1 X10'3 (4.5-11.0)
[2018-02-06] MEDS: dextrose 5%-1/2 normal saline 1,000 ML IV SCH ×4 (02:40→17:45)
[2018-02-06 02:46] LABS: ALBUMIN 2.9 G/DL (3.4-5.0); ANION GAP 9 (8-16); BLOOD UREA NITROGEN 25 MG/DL (7-18); BUN/CREATININE RATIO 23.4 (6.6-38.0); CALCIUM 7.9 MG/DL (8.5-10.1); CHLORIDE 107 MMOL/L (99-107); CREATININE 1.07 MG/DL (0.40-0.90); GLUCOSE 238 MG/DL (70-104); MAGNESIUM 1.5 MG/DL (1.5-2.4); PHOSPHORUS 2.5 MG/DL (2.3-4.5); POTASSIUM 4.1 MMOL/L (3.5-5.1); SODIUM 139 MMOL/L (135-145); eGFR 55 ML/MIN
[2018-02-06 05:53] LABS: ANION GAP 10 (8-16); BLOOD UREA NITROGEN 26 MG/DL (7-18); BUN/CREATININE RATIO 22.8 (6.6-38.0); CALCIUM 7.8 MG/DL (8.5-10.1); CHLORIDE 107 MMOL/L (99-107); CREATININE 1.14 MG/DL (0.40-0.90); GLUCOSE 140 MG/DL (70-104); MAGNESIUM 1.6 MG/DL (1.5-2.4); PHOSPHORUS 2.3 MG/DL (2.3-4.5); POTASSIUM 4.1 MMOL/L (3.5-5.1); SODIUM 140 MMOL/L (135-145); TOTAL CARBON DIOXIDE 23.1 MMOL/L (24-32); eGFR 51 ML/MIN
[2018-02-06] MEDS ORDERED: non-formulary drug (Aspirin (Aspir 81) 1 TABLET) PO SCH (08:00)
[2018-02-06] MEDS: K and/or MAG REPLACEMENT MC SCH (08:00)
[2018-02-06] MEDS: PARoxetine 20mg tablet PO SCH (08:56)
[2018-02-06] MEDS: aspirin 81mg tablet.DR PO SCH (08:56)
[2018-02-06] MEDS: pantoprazole 40mg Tablet.DR PO SCH ×2 (08:56→19:02)
[2018-02-06] MEDS: docusate sod 100mg capsule PO SCH ×2 (08:56→19:03)
[2018-02-06] MEDS: gabapentin 300mg capsule PO SCH ×3 (08:56→23:27)
[2018-02-06] MEDS: heparin, porcine 5000 units/ml vial SQ SCH ×2 (08:57→19:03)
[2018-02-06] MEDS ORDERED: insulin glargine (Lantus) pen - multi-dose SQ ONE (10:20)
[2018-02-06] MEDS: fluticasone furoate 100MCG/puff inhaler IH SCH (10:22)
[2018-02-06 10:32] LABS: ALBUMIN 3.1 G/DL (3.4-5.0); ANION GAP 12 (8-16); BLOOD UREA NITROGEN 23 MG/DL (7-18); BUN/CREATININE RATIO 21.7 (6.6-38.0); CHLORIDE 102 MMOL/L (99-107); CREATININE 1.06 MG/DL (0.40-0.90); GLUCOSE 435 MG/DL (70-104); MAGNESIUM 1.7 MG/DL (1.5-2.4); PHOSPHORUS 2.5 MG/DL (2.3-4.5); POTASSIUM 4.4 MMOL/L (3.5-5.1); SODIUM 136 MMOL/L (135-145); TOTAL CARBON DIOXIDE 21.7 MMOL/L (24-32); eGFR 55 ML/MIN
[2018-02-06] MEDS ORDERED: insulin glargine (Lantus) pen - multi-dose SQ SCH ×2 (11:00→21:00)
[2018-02-06] MEDS ORDERED: potassium CL 20mEq in D5-1/2NS 1,000 ML IV PRN (14:19)
[2018-02-06] MEDS ORDERED: sodium bicarbonate (8.4%) inj. 100 MEQ in sodium chloride 0.45% 500ml 500 ML IV PRN (14:19)
[2018-02-06] MEDS ORDERED: sodium bicarbonate (8.4%) inj. 50 MEQ in sodium chloride 0.45% 500ml 250 ML IV PRN (14:19)
[2018-02-06] MEDS ORDERED: insulin regular, DKA only 100 UNIT in normal saline 100ml IV soln 99 ML IV SCH ×2 (14:19)
[2018-02-06] MEDS ORDERED: insulin regular, human 10 units/0.1 ml syringe SQ PRN (14:20)
[2018-02-06 15:31] LABS: ALBUMIN 2.8 G/DL (3.4-5.0); ANION GAP 17 (8-16); BLOOD UREA NITROGEN 24 MG/DL (7-18); BUN/CREATININE RATIO 17.3 (6.6-38.0); CALCIUM 7.9 MG/DL (8.5-10.1); CHLORIDE 102 MMOL/L (99-107); CREATININE 1.39 MG/DL (0.40-0.90); MAGNESIUM 1.5 MG/DL (1.5-2.4); PHOSPHORUS 1.5 MG/DL (2.3-4.5); POTASSIUM 3.8 MMOL/L (3.5-5.1); SODIUM 136 MMOL/L (135-145); TOTAL CARBON DIOXIDE 17.4 MMOL/L (24-32); eGFR 40 ML/MIN
[2018-02-06 15:33] LABS: GLUCOSE 458 MG/DL (70-104)
[2018-02-06] MEDS: vancomycin/NS 1 GM ADD-VANTAGE 250 ML IV SCH (16:00)
[2018-02-06 16:24] LABS: ALBUMIN 2.7 G/DL (3.4-5.0); ANION GAP 10 (8-16); BLOOD UREA NITROGEN 24 MG/DL (7-18); BUN/CREATININE RATIO 21.4 (6.6-38.0); CALCIUM 7.9 MG/DL (8.5-10.1); CHLORIDE 105 MMOL/L (99-107); CREATININE 1.12 MG/DL (0.40-0.90); GLUCOSE 290 MG/DL (70-104); MAGNESIUM 1.6 MG/DL (1.5-2.4); PHOSPHORUS 1.6 MG/DL (2.3-4.5); POTASSIUM 3.9 MMOL/L (3.5-5.1); SODIUM 138 MMOL/L (135-145); TOTAL CARBON DIOXIDE 22.8 MMOL/L (24-32); eGFR 52 ML/MIN
[2018-02-06] MEDS: ondansetron/PF 4mg/2ml inj IV PRN (19:15)
[2018-02-06] MEDS: atorvastatin 10mg tablet PO SCH (20:59)
[2018-02-06 22:52] LABS: ALBUMIN 2.7 G/DL (3.4-5.0); ANION GAP 11 (8-16); BLOOD UREA NITROGEN 19 MG/DL (7-18); BUN/CREATININE RATIO 18.6 (6.6-38.0); CALCIUM 7.7 MG/DL (8.5-10.1); CHLORIDE 104 MMOL/L (99-107); CREATININE 1.02 MG/DL (0.40-0.90); GLUCOSE 218 MG/DL (70-104); MAGNESIUM 1.6 MG/DL (1.5-2.4); PHOSPHORUS 1.7 MG/DL (2.3-4.5); POTASSIUM 3.7 MMOL/L (3.5-5.1); SODIUM 136 MMOL/L (135-145); TOTAL CARBON DIOXIDE 20.6 MMOL/L (24-32); eGFR 58 ML/MIN
[2018-02-07] MEDS ORDERED: dextrose ORAL solution 15 GM/59 ML bottle PO PRN ×2 (00:05)
[2018-02-07] MEDS ORDERED: MESSAGE TO PHARMACY PO ONE (00:05)
[2018-02-07] MEDS ORDERED: dextrose 50%-water 50ml dispensing syringe IV PRN ×2 (00:05)
[2018-02-07] MEDS ORDERED: glucagon, human recombinant 1mg kit SUBCUT PRN (00:05)
[2018-02-07] MEDS ORDERED: normal saline 1000ml 1,000 ML IV SCH (00:10)
[2018-02-07] MEDS: insulin Lispro (HumaLOG) vial - multi-dose SQ SCH ×4 (00:25→19:11)
[2018-02-07] MEDS: insulin glargine (Lantus) pen - multi-dose SQ SCH ×3 (00:26→21:04)
[2018-02-07] MEDS: HYDROcodone/acetaminophen 10/325mg tab PO PRN ×3 (02:48→18:06)
[2018-02-07 03:00] VITALS: BP 96/52
[2018-02-07] MEDS: vancomycin/NS 1 GM ADD-VANTAGE 250 ML IV SCH ×2 (05:16→16:08)
[2018-02-07] MEDS: ondansetron/PF 4mg/2ml inj IV PRN ×2 (05:17→20:59)
[2018-02-07] MEDS: dextrose 5%-1/2 normal saline 1,000 ML IV SCH (05:20)
[2018-02-07 05:22] LABS: BASOPHILS % (AUTO) 0.4 % (0-1); EOSINOPHILS # (AUTO) 0.1 X10'3 (0-0.9); EOSINOPHILS % (AUTO) 0.9 % (0-6); HEMATOCRIT 33.7 % (35.0-45.0); HEMOGLOBIN 11.1 g/dl (12.0-16.0); LYMPHOCYTES % (AUTO) 22.9 % (21-51); MEAN CORPUSCULAR VOLUME 87.8 FL (78-98); MEAN PLATELET VOLUME 9.2 FL (7.4-10.4); MONOCYTES # (AUTO) 0.5 X10'3 (0-0.9); MONOCYTES % (AUTO) 6.2 % (2-12); NEUTROPHILS % (AUTO) 69.6 % (42-75); PLATELET COUNT 172 X10'3 (140-440); RED BLOOD COUNT 3.84 X10'6 (4.20-5.60); WHITE BLOOD COUNT 8.7 X10'3 (4.5-11.0)
[2018-02-07 05:58] LABS: ALBUMIN 2.7 G/DL (3.4-5.0); ANION GAP 9 (8-16); BLOOD UREA NITROGEN 16 MG/DL (7-18); BUN/CREATININE RATIO 21.6 (6.6-38.0); CHLORIDE 107 MMOL/L (99-107); CREATININE 0.74 MG/DL (0.40-0.90); GLUCOSE 97 MG/DL (70-104); MAGNESIUM 1.7 MG/DL (1.5-2.4); PHOSPHORUS 2.2 MG/DL (2.3-4.5); POTASSIUM 3.9 MMOL/L (3.5-5.1); SODIUM 139 MMOL/L (135-145); TOTAL CARBON DIOXIDE 22.7 MMOL/L (24-32); eGFR 83 ML/MIN
[2018-02-07 06:30] VITALS: BP 115/66
[2018-02-07 06:40] LABS: CALCIUM 7.7 MG/DL (8.5-10.1)
[2018-02-07] MEDS: heparin, porcine 5000 units/ml vial SQ SCH ×2 (07:40→19:15)
[2018-02-07] MEDS: gabapentin 300mg capsule PO SCH ×2 (07:41→16:04)
[2018-02-07] MEDS: PARoxetine 20mg tablet PO SCH (07:41)
[2018-02-07] MEDS: aspirin 81mg tablet.DR PO SCH (07:42)
[2018-02-07] MEDS: pantoprazole 40mg Tablet.DR PO SCH ×2 (07:42→19:16)
[2018-02-07] MEDS: docusate sod 100mg capsule PO SCH ×2 (07:42→19:15)
[2018-02-07] MEDS: K and/or MAG REPLACEMENT MC SCH (08:00)
[2018-02-07] MEDS: fluticasone furoate 100MCG/puff inhaler IH SCH (09:01)
[2018-02-07 11:00] VITALS: BP 112/71
[2018-02-07 15:00] VITALS: BP 108/74
[2018-02-07 19:00] VITALS: BP 122/71
[2018-02-07] MEDS: atorvastatin 10mg tablet PO SCH (20:59)
[2018-02-07 23:00] VITALS: BP 127/73
[2018-02-08] MEDS: gabapentin 300mg capsule PO SCH ×3 (00:03→15:31)
[2018-02-08 03:00] VITALS: BP 110/68
[2018-02-08] MEDS ORDERED: VANCOMYCIN LEVEL IV ONE (03:30)
[2018-02-08] MEDS: vancomycin/NS 1 GM ADD-VANTAGE 250 ML IV SCH (04:31)
[2018-02-08 04:36] LABS: BASOPHILS % (AUTO) 0.7 % (0-1); EOSINOPHILS % (AUTO) 0.5 % (0-6); HEMATOCRIT 34.6 % (35.0-45.0); HEMOGLOBIN 11.6 g/dl (12.0-16.0); LYMPHOCYTES % (AUTO) 36.6 % (21-51); MEAN CORPUSCULAR HEMOGLOBIN 29.1 PG (27.0-31.0); MEAN CORPUSCULAR HGB CONC 33.5 % (33.0-36.5); MEAN CORPUSCULAR VOLUME 86.9 FL (78-98); MEAN PLATELET VOLUME 9.3 FL (7.4-10.4); MONOCYTES # (AUTO) 0.4 X10'3 (0-0.9); MONOCYTES % (AUTO) 7.5 % (2-12); NEUTROPHILS % (AUTO) 54.7 % (42-75); PLATELET COUNT 154 X10'3 (140-440); RED BLOOD COUNT 3.98 X10'6 (4.20-5.60); RED CELL DISTRIBUTION WIDTH 14.1 % (11.5-14.5); WHITE BLOOD COUNT 5.5 X10'3 (4.5-11.0)
[2018-02-08 04:40] LABS: ALBUMIN 2.8 G/DL (3.4-5.0); ANION GAP 7 (8-16); BLOOD UREA NITROGEN 11 MG/DL (7-18); BUN/CREATININE RATIO 21.6 (6.6-38.0); CALCIUM 8.2 MG/DL (8.5-10.1); CHLORIDE 106 MMOL/L (99-107); CREATININE 0.51 MG/DL (0.40-0.90); GLUCOSE 90 MG/DL (70-104); POTASSIUM 3.7 MMOL/L (3.5-5.1); SODIUM 142 MMOL/L (135-145); TOTAL CARBON DIOXIDE 29.5 MMOL/L (24-32); VANCOMYCIN,TROUGH 8.5 UG/ML (6.0-14.0); eGFR > 90 ML/MIN
[2018-02-08 06:30] VITALS: BP 115/66
[2018-02-08] MEDS: ondansetron/PF 4mg/2ml inj IV PRN ×2 (07:06→18:47)
[2018-02-08] MEDS: HYDROcodone/acetaminophen 10/325mg tab PO PRN ×3 (07:07→22:21)
[2018-02-08] MEDS: K and/or MAG REPLACEMENT MC SCH (08:00)
[2018-02-08] MEDS: pantoprazole 40mg Tablet.DR PO SCH ×2 (08:49→20:33)
[2018-02-08] MEDS: aspirin 81mg tablet.DR PO SCH (08:49)
[2018-02-08] MEDS: magnesium hydroxide 30ml (MOM) UD suspension PO PRN ×2 (08:49→20:44)
[2018-02-08] MEDS: docusate sod 100mg capsule PO SCH ×2 (08:49→20:33)
[2018-02-08] MEDS: PARoxetine 20mg tablet PO SCH (08:50)
[2018-02-08] MEDS: heparin, porcine 5000 units/ml vial SQ SCH ×2 (08:50→20:34)
[2018-02-08] MEDS: insulin glargine (Lantus) pen - multi-dose SQ SCH ×2 (09:52→20:40)
[2018-02-08] MEDS: insulin Lispro (HumaLOG) vial - multi-dose SQ SCH ×3 (09:53→18:46)
[2018-02-08 11:00] VITALS: BP 115/78
[2018-02-08] MEDS ORDERED: vancomycin/NS 1 GM ADD-VANTAGE 250 ML IV SCH (12:00)
[2018-02-08 15:00] VITALS: BP 122/77
[2018-02-08 19:00] VITALS: BP 113/61
[2018-02-08] MEDS: atorvastatin 10mg tablet PO SCH (20:33)
[2018-02-08 22:55] VITALS: BP 116/63
[2018-02-09] MEDS: gabapentin 300mg capsule PO SCH ×2 (00:06→08:02)
[2018-02-09 03:00] VITALS: BP 97/55
[2018-02-09] MEDS ORDERED: VANCOMYCIN LEVEL IV NR (03:30)
[2018-02-09 05:43] LABS: ALBUMIN 2.7 G/DL (3.4-5.0); ANION GAP 3 (8-16); BLOOD UREA NITROGEN 14 MG/DL (7-18); CALCIUM 8.2 MG/DL (8.5-10.1); CHLORIDE 106 MMOL/L (99-107); CREATININE 0.56 MG/DL (0.40-0.90); GLUCOSE 117 MG/DL (70-104); POTASSIUM 3.8 MMOL/L (3.5-5.1); SODIUM 141 MMOL/L (135-145); TOTAL CARBON DIOXIDE 31.9 MMOL/L (24-32); eGFR > 90 ML/MIN
[2018-02-09 06:00] VITALS: BP 111/52
[2018-02-09] MEDS: K and/or MAG REPLACEMENT MC SCH (08:00)
[2018-02-09] MEDS: docusate sod 100mg capsule PO SCH (08:00)
[2018-02-09] MEDS: heparin, porcine 5000 units/ml vial SQ SCH (08:00)
[2018-02-09] MEDS: PARoxetine 20mg tablet PO SCH (08:02)
[2018-02-09] MEDS: aspirin 81mg tablet.DR PO SCH (08:02)
[2018-02-09] MEDS: pantoprazole 40mg Tablet.DR PO SCH (08:02)
[2018-02-09] MEDS: insulin Lispro (HumaLOG) vial - multi-dose SQ SCH ×2 (08:11→13:26)
[2018-02-09] MEDS: insulin glargine (Lantus) pen - multi-dose SQ SCH (08:13)
[2018-02-09] MEDS: fluticasone furoate 100MCG/puff inhaler IH SCH (08:54)
[2018-02-09 11:00] VITALS: BP 113/60
[2018-02-09 11:11] LABS: ABG HCO3 30.3 mmol/L (22.0-26.0); ABG OXYGEN SATURATION 97.3 % (95-98); ABG PCO2 (T) 42.6 mmHg (32.0-45.0); ABG PO2 (T) 88.2 mmHg (83-108); ALLEN'S TEST Positive; FMetHb 0.1 % (0.3-1.12); FO2Hb 97.2 % (94-100); TOTAL HEMOGLOBIN 12.4 G/dl (12.0-16.0)
== END 2018-02-09 15:59 | disposition home or self-care (01) | DRG 420 ==
LOC: ER 13:05 → ED HOLD 18:23 → EDBEDREQ 19:14 → PCU 3S 19:33 → CMPBEDREQ 02-06 19:43
PROVIDERS: ADMIT Internal Medicine; ATTEND Internal Medicine
DX: E10.10 Type 1 diabetes mellitus with ketoacidosis without coma (principal); N17.9 Acute kidney failure, unspecified; E87.4 Mixed disorder of acid-base balance; I50.9 Heart failure, unspecified; I48.0 Paroxysmal atrial fibrillation; E86.0 Dehydration; R78.81 Bacteremia; E87.5 Hyperkalemia; E78.5 Hyperlipidemia, unspecified; G89.4 Chronic pain syndrome; K21.9 Gastro-esophageal reflux disease without esophagitis; J45.909 Unspecified asthma, uncomplicated; E78.00 Pure hypercholesterolemia, unspecified; F17.210 Nicotine dependence, cigarettes, uncomplicated; F32.9 Major depressive disorder, single episode, unspecified; F41.9 Anxiety disorder, unspecified; M54.5 Low back pain; Z79.4 Long term (current) use of insulin; Z88.0 Allergy status to penicillin; Z88.1 Allergy status to other antibiotic agents; Z88.2 Allergy status to sulfonamides; Z88.8 Allergy status to other drugs, medicaments and biological substances; Z85.41 Personal history of malignant neoplasm of cervix uteri; Z90.710 Acquired absence of both cervix and uterus; Z56.0 Unemployment, unspecified
CPT/HCPCS: 36415; 36600; 71045; 74176; 80048; 80053; 80069; 80202; 81001; 81025; 82803; 82948; 83036; 83605; 83735; 84100; 84145; 85018; 85025; 86140; 87040; 87070; 87077; 87186; 93005; 94640; 94760; 96361; 96374; 96375; 99291; A4315; A6258; J0780; J1644; J1815; J1940; J2270; J2405; J2765; J3370; J7030

== ENCOUNTER 2018-02-22 17:27 | Inpatient (IN) | payer MEDICAID ==
[~2018-02-22] VITALS: Ht 170.2 cm; Wt 60.0 kg
[2018-02-22] MEDS ORDERED: ondansetron 4mg rapidly disintigrating tab PO ONE (18:35)
[2018-02-22 20:04] LABS: BASOPHILS % (AUTO) 0.1 % (0-1); EOSINOPHILS # (AUTO) 0.4 X10'3 (0-0.9); EOSINOPHILS % (AUTO) 1.5 % (0-6); HEMATOCRIT 49.8 % (35.0-45.0); LYMPHOCYTES % (AUTO) 4.3 % (21-51); MEAN CORPUSCULAR HEMOGLOBIN 29.2 PG (27.0-31.0); MEAN CORPUSCULAR HGB CONC 32.2 % (33.0-36.5); MEAN CORPUSCULAR VOLUME 90.5 FL (78-98); MEAN PLATELET VOLUME 9.6 FL (7.4-10.4); NEUTROPHILS # (AUTO) 21.6 X10'3 (1.8-7.7); NEUTROPHILS % (AUTO) 90.1 % (42-75); PLATELET COUNT 307 X10'3 (140-440); RED CELL DISTRIBUTION WIDTH 15.1 % (11.5-14.5)
[2018-02-22 20:29] LABS: ALANINE AMINOTRANSFERASE 31 U/L (12-78); ALBUMIN 3.8 G/DL (3.4-5.0); ALKALINE PHOSPHATASE 123 IU/L (46-116); ANION GAP 33 (8-16); ASPARTATE AMINO TRANSFERASE 9 U/L (10-37); BILIRUBIN,TOTAL 0.6 MG/DL (0.1-1.0); BLOOD UREA NITROGEN 34 MG/DL (7-18); BUN/CREATININE RATIO 18.2 (6.6-38.0); CALCIUM 8.7 MG/DL (8.5-10.1); CHLORIDE 86 MMOL/L (99-107); CREATININE 1.87 MG/DL (0.40-0.90); LIPASE 234 U/L (73-393); SODIUM 127 MMOL/L (135-145); TOTAL PROTEIN 7.8 G/DL (6.4-8.2); TROPONIN I < 0.04 NG/ML (0.0-0.05); eGFR 29 ML/MIN
[2018-02-22 20:32] LABS: PLATELET ESTIMATE NORMAL; TOTAL CELLS COUNTED 100
[2018-02-22 20:43] LABS: GLUCOSE 707 MG/DL (70-104)
[2018-02-22 20:44] LABS: POTASSIUM 6.2 MMOL/L (3.5-5.1)
[2018-02-22 20:45] LABS: TOTAL CARBON DIOXIDE 8.3 MMOL/L (24-32)
[2018-02-22] MEDS ORDERED: potassium CL 20mEq in D5-1/2NS 1,000 ML IV PRN (20:48)
[2018-02-22] MEDS ORDERED: sodium bicarbonate (8.4%) inj. 50 MEQ in sodium chloride 0.45% 500ml 250 ML IV PRN ×2 (20:48→21:23)
[2018-02-22] MEDS ORDERED: K and/or MAG REPLACEMENT MC STA (20:48)
[2018-02-22] MEDS ORDERED: normal saline 1000ml 1,000 ML IV SCH (20:48)
[2018-02-22] MEDS ORDERED: sodium bicarbonate (8.4%) inj. 100 MEQ in sodium chloride 0.45% 500ml 500 ML IV PRN ×2 (20:48→21:23)
[2018-02-22] MEDS ORDERED: sodium phosphate inj. 15 MMOL in dextrose 5%-water 150 ML IV PRN (20:50)
[2018-02-22] MEDS ORDERED: potassium Cl 20 mEq SR tablet PO PRN ×6 (20:50→21:25)
[2018-02-22] MEDS ORDERED: potassium Cl 40MEQ/NS 500ml 500 ML IV PRN ×2 (20:50)
[2018-02-22] MEDS ORDERED: sodium phosphate inj. 30 MMOL in dextrose 5%-water 250 ML IV PRN (20:50)
[2018-02-22] MEDS ORDERED: Neutra Phos packet PO PRN (20:50)
[2018-02-22] MEDS ORDERED: insulin regular, human 10 units/0.1 ml syringe SQ PRN (20:50)
[2018-02-22] MEDS: normal saline 1000ml 1,000 ML IV SCH ×5 (21:18→23:43)
[2018-02-22] MEDS ORDERED: magnesium hydroxide 30ml (MOM) UD suspension PO PRN (21:25)
[2018-02-22] MEDS ORDERED: HYDROcodone/acetaminophen 5mg/325mg tablet PO PRN (21:25)
[2018-02-22] MEDS ORDERED: acetaminophen 325mg tablet PO PRN ×2 (21:25)
[2018-02-22] MEDS ORDERED: magnesium Cl slow-release 64mg tablet PO PRN (21:25)
[2018-02-22 21:32] LABS: PHOSPHORUS 7.3 MG/DL (2.3-4.5)
[2018-02-22 22:01] LABS: ABG BASE EXCESS -23.7 mmol/L (-2.0-3.0); ABG HCO3 3.4 mmol/L (22.0-26.0); ABG OXYGEN SATURATION 98.2 % (95-98); ABG PH (T) 7.106 (7.350-7.450); ABG PO2 (T) 131.3 mmHg (83-108); FCOHb 0.5 % (0.5-1.5); FMetHb 0.5 % (0.3-1.12); FO2Hb 97.2 % (94-100); PATIENT TEMPERATURE 37.1; RESPIRATORY RATE (OBSERVED) 30 b/min; TOTAL HEMOGLOBIN 15.1 G/dl (12.0-16.0)
[2018-02-22] MEDS: albuterol 2.5 MG/3 ML nebule NEB SCH (22:10)
[2018-02-22 23:00] VITALS: BP 133/65
[2018-02-22] MEDS: K, MAG and/or Phos replacement - Verify level? MC SCH ×2 (23:00→23:37)
[2018-02-22] MEDS ORDERED: insulin Lispro (HumaLOG) vial - multi-dose SQ ONE (23:02)
[2018-02-22] MEDS: insulin regular, DKA only 100 UNIT in normal saline 100ml IV soln 99 ML IV SCH ×2 (23:03)
[2018-02-22] MEDS ORDERED: insulin regular, human vial - multi-dose ONE (23:10)
[2018-02-22] MEDS: gabapentin 300mg capsule PO SCH (23:13)
[2018-02-22] MEDS: HYDROcodone/acetaminophen 10/325mg tab PO PRN (23:14)
[2018-02-22 23:15] VITALS: BP 144/73
[2018-02-22] MEDS: insulin regular, human 10 units/0.1 ml syringe SQ PRN (23:15)
[2018-02-22] MEDS: ondansetron/PF 4mg/2ml inj IV PRN (23:17)
[2018-02-22 23:27] LABS: CLARITY,URINE Clear (Clear); COLOR,URINE Yellow (Yellow); GLUCOSE, URINE >=1000 mg/dl (Neg); KETONES,URINE >=160 mg/dl (Neg); LEUKOCYTE ESTERASE ,URINE Negative (Neg); NITRITES, URINE Negative (Neg); OCCULT BLOOD,URINE Negative (Neg); PROTEIN,URINE 30 mg/dl (Neg)
[2018-02-22 23:30] VITALS: BP 115/92
[2018-02-22] MEDS ORDERED: insulin glargine (Lantus) pen - multi-dose SQ SCH (23:30)
[2018-02-22 23:33] LABS: UA COLLECTION TYPE NON-SPECIFIED
[2018-02-22 23:36] LABS: BACTERIA,URINE NONE SEEN /HPF (Neg); MUCUS STRANDS NONE SEEN /LPF (Neg); RBC,URINE NONE SEEN /HPF (0-2); SQUAMOUS EPITHELIAL CELL,UR FEW /LPF (FEW); WBC,URINE NONE SEEN /HPF (0-4); YEAST FEW /HPF (NEGATIVE)
[2018-02-22 23:45] VITALS: BP 123/67
[2018-02-23] VITALS (25 sets, daily range): BP systolic 85–141; BP diastolic 47–85
[2018-02-23] MEDS: insulin regular, DKA only 100 UNIT in normal saline 100ml IV soln 99 ML IV SCH ×4 (00:52→05:06)
[2018-02-23] MEDS: insulin regular, human 10 units/0.1 ml syringe SQ PRN (00:53)
[2018-02-23 01:15] LABS: ALBUMIN 3.5 G/DL (3.4-5.0); ANION GAP 31 (8-16); BLOOD UREA NITROGEN 33 MG/DL (7-18); BUN/CREATININE RATIO 21.9 (6.6-38.0); CALCIUM 7.9 MG/DL (8.5-10.1); CHLORIDE 98 MMOL/L (99-107); CREATININE 1.51 MG/DL (0.40-0.90); PHOSPHORUS 5.6 MG/DL (2.3-4.5); POTASSIUM 4.8 MMOL/L (3.5-5.1); SODIUM 136 MMOL/L (135-145); eGFR 37 ML/MIN
[2018-02-23] MEDS: normal saline 1000ml 1,000 ML IV SCH ×4 (01:16→13:23)
[2018-02-23 01:24] LABS: GLUCOSE 490 MG/DL (70-104)
[2018-02-23 01:25] LABS: TOTAL CARBON DIOXIDE 7.5 MMOL/L (24-32)
[2018-02-23] MEDS ORDERED: sodium bicarbonate (8.4%) 1 mEq/ml syringe ONE (03:08)
[2018-02-23] MEDS: potassium CL 20mEq in D5-1/2NS 1,000 ML IV PRN ×2 (03:25→07:52)
[2018-02-23 04:16] LABS: ABG BASE EXCESS -7.5 mmol/L (-2.0-3.0); ABG HCO3 16.8 mmol/L (22.0-26.0); ABG OXYGEN SATURATION 96.9 % (95-98); ABG PCO2 (T) 30.3 mmHg (32.0-45.0); ABG PO2 (T) 79.6 mmHg (83-108); ALLEN'S TEST Positive; FMetHb 0.1 % (0.3-1.12); FO2Hb 96.8 % (94-100); PATIENT TEMPERATURE 36.6; TOTAL HEMOGLOBIN 13.6 G/dl (12.0-16.0)
[2018-02-23 05:36] LABS: BASOPHILS % (AUTO) 0.2 % (0-1); EOSINOPHILS % (AUTO) 0 % (0-6); HEMATOCRIT 39.2 % (35.0-45.0); HEMOGLOBIN 13.3 g/dl (12.0-16.0); LYMPHOCYTES # (AUTO) 2.2 X10'3 (1.1-4.8); LYMPHOCYTES % (AUTO) 11.9 % (21-51); MEAN CORPUSCULAR HEMOGLOBIN 29.8 PG (27.0-31.0); MEAN CORPUSCULAR VOLUME 87.6 FL (78-98); MEAN PLATELET VOLUME 9.2 FL (7.4-10.4); MONOCYTES # (AUTO) 0.9 X10'3 (0-0.9); MONOCYTES % (AUTO) 4.8 % (2-12); NEUTROPHILS # (AUTO) 15.3 X10'3 (1.8-7.7); NEUTROPHILS % (AUTO) 83.1 % (42-75); PLATELET COUNT 252 X10'3 (140-440); RED BLOOD COUNT 4.47 X10'6 (4.20-5.60); RED CELL DISTRIBUTION WIDTH 14.3 % (11.5-14.5); WHITE BLOOD COUNT 18.4 X10'3 (4.5-11.0)
[2018-02-23 05:48] LABS: ALANINE AMINOTRANSFERASE 26 U/L (12-78); ALBUMIN 2.8 G/DL (3.4-5.0); ALBUMIN/GLOBULIN RATIO 0.8 (1.1-1.5); ALKALINE PHOSPHATASE 82 IU/L (46-116); ANION GAP 13 (8-16); ASPARTATE AMINO TRANSFERASE 9 U/L (10-37); BILIRUBIN,TOTAL 0.3 MG/DL (0.1-1.0); BLOOD UREA NITROGEN 26 MG/DL (7-18); CALCIUM 7.9 MG/DL (8.5-10.1); CHLORIDE 109 MMOL/L (99-107); CREATININE 1.13 MG/DL (0.40-0.90); GLUCOSE 115 MG/DL (70-104); MAGNESIUM 1.6 MG/DL (1.5-2.4); PHOSPHORUS 2.4 MG/DL (2.3-4.5); POTASSIUM 3.8 MMOL/L (3.5-5.1); SODIUM 143 MMOL/L (135-145); TOTAL CARBON DIOXIDE 20.7 MMOL/L (24-32); TOTAL PROTEIN 6.1 G/DL (6.4-8.2); eGFR 51 ML/MIN
[2018-02-23] MEDS: gabapentin 300mg capsule PO SCH ×2 (07:33→17:04)
[2018-02-23] MEDS: aspirin 81mg tab.chew PO SCH (07:33)
[2018-02-23] MEDS: pantoprazole 40mg Tablet.DR PO SCH (07:33)
[2018-02-23] MEDS: lisinopril 2.5mg tablet PO SCH (07:34)
[2018-02-23] MEDS: heparin, porcine 5000 units/ml vial SQ SCH ×2 (07:35→20:42)
[2018-02-23] MEDS: K, MAG and/or Phos replacement - Verify level? MC SCH (07:37)
[2018-02-23] MEDS: PARoxetine 20mg tablet PO SCH (07:40)
[2018-02-23] MEDS ORDERED: K and/or MAG REPLACEMENT MC SCH (08:00)
[2018-02-23] MEDS: albuterol 2.5 MG/3 ML nebule NEB SCH ×4 (08:25→19:43)
[2018-02-23] MEDS: BUDESONIDE 0.25 MG/2 ML AMPUL.NEB IH SCH ×2 (08:25→19:43)
[2018-02-23] MEDS ORDERED: dextrose ORAL solution 15 GM/59 ML bottle PO PRN ×2 (09:10)
[2018-02-23] MEDS ORDERED: glucagon, human recombinant 1mg kit SUBCUT PRN (09:10)
[2018-02-23] MEDS ORDERED: dextrose 50%-water 50ml dispensing syringe IV PRN ×2 (09:10)
[2018-02-23] MEDS: HYDROcodone/acetaminophen 10/325mg tab PO PRN ×2 (13:42→20:38)
[2018-02-23] MEDS: insulin Lispro (HumaLOG) vial - multi-dose SQ SCH ×2 (13:55→21:04)
[2018-02-23] MEDS: ondansetron/PF 4mg/2ml inj IV PRN (17:04)
[2018-02-23] MEDS: atorvastatin 10mg tablet PO SCH (20:37)
[2018-02-23] MEDS: ondansetron 4mg rapidly disintigrating tab PO PRN (20:37)
[2018-02-23] MEDS: diazepam 5mg tablet PO PRN (20:38)
[2018-02-23] MEDS: insulin glargine (Lantus) pen - multi-dose SQ SCH (21:05)
[2018-02-24] VITALS (15 sets, daily range): BP systolic 81–135; BP diastolic 43–82
[2018-02-24] MEDS: ondansetron/PF 4mg/2ml inj IV PRN ×2 (02:20→08:57)
[2018-02-24] MEDS: HYDROcodone/acetaminophen 10/325mg tab PO PRN ×4 (03:45→23:20)
[2018-02-24] MEDS: gabapentin 300mg capsule PO SCH ×4 (03:45→23:19)
[2018-02-24 04:58] LABS: BASOPHILS % (AUTO) 0.4 % (0-1); EOSINOPHILS # (AUTO) 0.1 X10'3 (0-0.9); EOSINOPHILS % (AUTO) 0.9 % (0-6); HEMATOCRIT 35.9 % (35.0-45.0); LYMPHOCYTES # (AUTO) 2.4 X10'3 (1.1-4.8); LYMPHOCYTES % (AUTO) 27.8 % (21-51); MEAN CORPUSCULAR HEMOGLOBIN 29.3 PG (27.0-31.0); MEAN CORPUSCULAR HGB CONC 33.5 % (33.0-36.5); MEAN CORPUSCULAR VOLUME 87.4 FL (78-98); MEAN PLATELET VOLUME 9.1 FL (7.4-10.4); MONOCYTES # (AUTO) 0.5 X10'3 (0-0.9); MONOCYTES % (AUTO) 6.1 % (2-12); NEUTROPHILS # (AUTO) 5.5 X10'3 (1.8-7.7); NEUTROPHILS % (AUTO) 64.8 % (42-75); PLATELET COUNT 190 X10'3 (140-440); RED BLOOD COUNT 4.11 X10'6 (4.20-5.60); RED CELL DISTRIBUTION WIDTH 14.5 % (11.5-14.5); WHITE BLOOD COUNT 8.6 X10'3 (4.5-11.0)
[2018-02-24] MEDS ORDERED: HYDROmorphone inj. 0.5 MG/0.5 ML DISP.SYRIN IV ONE (05:00)
[2018-02-24] MEDS ORDERED: HYDROmorphone 1 mg/ml syringe ONE (05:09)
[2018-02-24 05:28] LABS: ALANINE AMINOTRANSFERASE 24 U/L (12-78); ALBUMIN 2.8 G/DL (3.4-5.0); ALBUMIN/GLOBULIN RATIO 0.9 (1.1-1.5); ALKALINE PHOSPHATASE 75 IU/L (46-116); ANION GAP 13 (8-16); ASPARTATE AMINO TRANSFERASE 10 U/L (10-37); BILIRUBIN,TOTAL 0.4 MG/DL (0.1-1.0); BLOOD UREA NITROGEN 11 MG/DL (7-18); BUN/CREATININE RATIO 12.8 (6.6-38.0); CALCIUM 8.3 MG/DL (8.5-10.1); CHLORIDE 102 MMOL/L (99-107); CREATININE 0.86 MG/DL (0.40-0.90); GLUCOSE 230 MG/DL (70-104); MAGNESIUM 1.7 MG/DL (1.5-2.4); POTASSIUM 3.8 MMOL/L (3.5-5.1); SODIUM 137 MMOL/L (135-145); TOTAL CARBON DIOXIDE 21.9 MMOL/L (24-32); TOTAL PROTEIN 5.8 G/DL (6.4-8.2); eGFR 70 ML/MIN
[2018-02-24] MEDS: albuterol 2.5 MG/3 ML nebule NEB SCH ×4 (07:52→20:21)
[2018-02-24] MEDS: BUDESONIDE 0.25 MG/2 ML AMPUL.NEB IH SCH ×2 (07:52→20:21)
[2018-02-24] MEDS: K, MAG and/or Phos replacement - Verify level? MC SCH (08:00)
[2018-02-24] MEDS: lisinopril 2.5mg tablet PO SCH (08:00)
[2018-02-24] MEDS: heparin, porcine 5000 units/ml vial SQ SCH ×2 (08:14→21:03)
[2018-02-24] MEDS: pantoprazole 40mg Tablet.DR PO SCH (08:14)
[2018-02-24] MEDS: PARoxetine 20mg tablet PO SCH (08:15)
[2018-02-24] MEDS: aspirin 81mg tab.chew PO SCH (08:16)
[2018-02-24] MEDS: insulin Lispro (HumaLOG) vial - multi-dose SQ SCH ×2 (10:09→17:47)
[2018-02-24] MEDS: pantoprazole 40MG/NS 100ML BAG 100 ML IV SCH ×3 (12:13→23:20)
[2018-02-24] MEDS: diazepam 5mg tablet PO PRN ×2 (13:34→23:19)
[2018-02-24] MEDS: atorvastatin 10mg tablet PO SCH (21:03)
[2018-02-24] MEDS: insulin glargine (Lantus) pen - multi-dose SQ SCH (21:11)
[2018-02-25] MEDS: pantoprazole 40MG/NS 100ML BAG 100 ML IV SCH ×5 (01:00→22:11)
[2018-02-25] MEDS: HYDROcodone/acetaminophen 10/325mg tab PO PRN ×3 (03:40→21:50)
[2018-02-25] MEDS: ondansetron/PF 4mg/2ml inj IV PRN ×2 (03:44→21:50)
[2018-02-25 05:17] LABS: BASOPHILS % (AUTO) 0.4 % (0-1); EOSINOPHILS % (AUTO) 0.3 % (0-6); HEMATOCRIT 34.6 % (35.0-45.0); HEMOGLOBIN 11.6 g/dl (12.0-16.0); LYMPHOCYTES # (AUTO) 1.6 X10'3 (1.1-4.8); LYMPHOCYTES % (AUTO) 25.2 % (21-51); MEAN CORPUSCULAR HEMOGLOBIN 29.1 PG (27.0-31.0); MEAN CORPUSCULAR HGB CONC 33.5 % (33.0-36.5); MEAN CORPUSCULAR VOLUME 86.9 FL (78-98); MEAN PLATELET VOLUME 9.1 FL (7.4-10.4); MONOCYTES # (AUTO) 0.5 X10'3 (0-0.9); MONOCYTES % (AUTO) 7.1 % (2-12); NEUTROPHILS # (AUTO) 4.4 X10'3 (1.8-7.7); PLATELET COUNT 167 X10'3 (140-440); RED BLOOD COUNT 3.98 X10'6 (4.20-5.60); RED CELL DISTRIBUTION WIDTH 14.9 % (11.5-14.5); WHITE BLOOD COUNT 6.5 X10'3 (4.5-11.0)
[2018-02-25 05:35] LABS: ALANINE AMINOTRANSFERASE 22 U/L (12-78); ALBUMIN 2.7 G/DL (3.4-5.0); ALBUMIN/GLOBULIN RATIO 0.9 (1.1-1.5); ALKALINE PHOSPHATASE 80 IU/L (46-116); ANION GAP 5 (8-16); ASPARTATE AMINO TRANSFERASE 14 U/L (10-37); BILIRUBIN,TOTAL 0.3 MG/DL (0.1-1.0); BLOOD UREA NITROGEN 12 MG/DL (7-18); BUN/CREATININE RATIO 16.9 (6.6-38.0); CALCIUM 8.2 MG/DL (8.5-10.1); CHLORIDE 100 MMOL/L (99-107); CREATININE 0.71 MG/DL (0.40-0.90); GLUCOSE 326 MG/DL (70-104); MAGNESIUM 2.3 MG/DL (1.5-2.4); POTASSIUM 4.1 MMOL/L (3.5-5.1); SODIUM 133 MMOL/L (135-145); TOTAL CARBON DIOXIDE 28.5 MMOL/L (24-32); TOTAL PROTEIN 5.6 G/DL (6.4-8.2); eGFR 87 ML/MIN
[2018-02-25 07:00] VITALS: BP 115/70
[2018-02-25] MEDS: albuterol 2.5 MG/3 ML nebule NEB SCH ×4 (07:10→21:13)
[2018-02-25] MEDS: BUDESONIDE 0.25 MG/2 ML AMPUL.NEB IH SCH ×2 (07:12→21:14)
[2018-02-25] MEDS: aspirin 81mg tab.chew PO SCH (07:59)
[2018-02-25] MEDS: heparin, porcine 5000 units/ml vial SQ SCH ×2 (08:00→19:19)
[2018-02-25] MEDS: gabapentin 300mg capsule PO SCH ×2 (08:00→15:43)
[2018-02-25] MEDS: PARoxetine 20mg tablet PO SCH (08:00)
[2018-02-25] MEDS: K, MAG and/or Phos replacement - Verify level? MC SCH (08:00)
[2018-02-25] MEDS: lisinopril 2.5mg tablet PO SCH (08:00)
[2018-02-25] MEDS: insulin Lispro (HumaLOG) vial - multi-dose SQ SCH ×3 (08:06→19:16)
[2018-02-25 11:00] VITALS: BP 104/60
[2018-02-25 15:00] VITALS: BP 91/64
[2018-02-25] MEDS: ondansetron 4mg rapidly disintigrating tab PO PRN (15:43)
[2018-02-25] MEDS: metFORMIN 500mg tablet PO SCH (17:37)
[2018-02-25 19:00] VITALS: BP 103/63
[2018-02-25] MEDS: diazepam 5mg tablet PO PRN (21:49)
[2018-02-25] MEDS: atorvastatin 10mg tablet PO SCH (21:50)
[2018-02-25] MEDS: insulin glargine (Lantus) pen - multi-dose SQ SCH (22:04)
[2018-02-25 23:00] VITALS: BP 96/59
[2018-02-26] MEDS: pantoprazole 40MG/NS 100ML BAG 100 ML IV SCH ×5 (01:00→21:00)
[2018-02-26] MEDS: gabapentin 300mg capsule PO SCH ×4 (01:06→23:01)
[2018-02-26] MEDS ORDERED: oxyCODONE IR 5mg (immed. release) tablet PO ONE (01:15)
[2018-02-26 03:00] VITALS: BP 107/74
[2018-02-26 05:45] LABS: BASOPHILS % (AUTO) 0.5 % (0-1); EOSINOPHILS # (AUTO) 0.1 X10'3 (0-0.9); HEMATOCRIT 32.9 % (35.0-45.0); HEMOGLOBIN 11.2 g/dl (12.0-16.0); LYMPHOCYTES # (AUTO) 1.7 X10'3 (1.1-4.8); LYMPHOCYTES % (AUTO) 32.7 % (21-51); MEAN CORPUSCULAR HEMOGLOBIN 29.6 PG (27.0-31.0); MEAN CORPUSCULAR HGB CONC 33.9 % (33.0-36.5); MEAN CORPUSCULAR VOLUME 87.3 FL (78-98); MEAN PLATELET VOLUME 9.7 FL (7.4-10.4); MONOCYTES # (AUTO) 0.3 X10'3 (0-0.9); MONOCYTES % (AUTO) 6.6 % (2-12); NEUTROPHILS # (AUTO) 3.1 X10'3 (1.8-7.7); NEUTROPHILS % (AUTO) 58.2 % (42-75); PLATELET COUNT 136 X10'3 (140-440); RED BLOOD COUNT 3.77 X10'6 (4.20-5.60); RED CELL DISTRIBUTION WIDTH 14.6 % (11.5-14.5); WHITE BLOOD COUNT 5.3 X10'3 (4.5-11.0)
[2018-02-26 06:00] VITALS: BP 95/62
[2018-02-26 06:07] LABS: ALANINE AMINOTRANSFERASE 35 U/L (12-78); ALBUMIN 2.6 G/DL (3.4-5.0); ALBUMIN/GLOBULIN RATIO 0.9 (1.1-1.5); ALKALINE PHOSPHATASE 75 IU/L (46-116); ANION GAP 5 (8-16); ASPARTATE AMINO TRANSFERASE 45 U/L (10-37); BILIRUBIN,TOTAL 0.3 MG/DL (0.1-1.0); BLOOD UREA NITROGEN 10 MG/DL (7-18); BUN/CREATININE RATIO 18.5 (6.6-38.0); CALCIUM 8.2 MG/DL (8.5-10.1); CHLORIDE 102 MMOL/L (99-107); CREATININE 0.54 MG/DL (0.40-0.90); GLUCOSE 284 MG/DL (70-104); MAGNESIUM 2.1 MG/DL (1.5-2.4); POTASSIUM 4.1 MMOL/L (3.5-5.1); SODIUM 137 MMOL/L (135-145); TOTAL PROTEIN 5.6 G/DL (6.4-8.2); eGFR > 90 ML/MIN
[2018-02-26] MEDS: albuterol 2.5 MG/3 ML nebule NEB SCH ×3 (07:46→14:27)
[2018-02-26] MEDS: BUDESONIDE 0.25 MG/2 ML AMPUL.NEB IH SCH (08:00)
[2018-02-26] MEDS: K, MAG and/or Phos replacement - Verify level? MC SCH (08:00)
[2018-02-26] MEDS: metFORMIN 500mg tablet PO SCH ×2 (09:24→17:30)
[2018-02-26 09:25] VITALS: BP 103/65
[2018-02-26] MEDS: aspirin 81mg tab.chew PO SCH (09:25)
[2018-02-26] MEDS: heparin, porcine 5000 units/ml vial SQ SCH ×2 (09:26→19:25)
[2018-02-26] MEDS: lisinopril 2.5mg tablet PO SCH (09:26)
[2018-02-26] MEDS: PARoxetine 20mg tablet PO SCH (09:26)
[2018-02-26] MEDS: insulin Lispro (HumaLOG) vial - multi-dose SQ SCH ×3 (09:39→21:26)
[2018-02-26] MEDS: HYDROcodone/acetaminophen 10/325mg tab PO PRN ×2 (09:44→21:29)
[2018-02-26] MEDS: diazepam 5mg tablet PO PRN ×2 (09:45→22:53)
[2018-02-26] MEDS: ondansetron/PF 4mg/2ml inj IV PRN (09:53)
[2018-02-26 11:00] VITALS: BP 97/53
[2018-02-26] MEDS ORDERED: LANTUS SQ (13:26)
[2018-02-26] MEDS ORDERED: HYDR-569 PO (13:26)
[2018-02-26 15:00] VITALS: BP 92/50
[2018-02-26 18:23] LABS: OCCULT BLOOD STOOL POSITIVE (Neg)
[2018-02-26 19:00] VITALS: BP 95/58
[2018-02-26] MEDS: atorvastatin 10mg tablet PO SCH (20:28)
[2018-02-26] MEDS: insulin glargine (Lantus) pen - multi-dose SQ SCH (21:23)
[2018-02-27] MEDS: pantoprazole 40MG/NS 100ML BAG 100 ML IV SCH ×3 (01:00→11:32)
[2018-02-27] MEDS ORDERED: oxyCODONE IR 5mg (immed. release) tablet PO ONE ×2 (01:45→03:05)
[2018-02-27 03:00] VITALS: BP 105/70
[2018-02-27 05:25] LABS: BASOPHILS % (AUTO) 0.4 % (0-1); EOSINOPHILS # (AUTO) 0.1 X10'3 (0-0.9); EOSINOPHILS % (AUTO) 2.1 % (0-6); HEMATOCRIT 34.1 % (35.0-45.0); HEMOGLOBIN 11.4 g/dl (12.0-16.0); LYMPHOCYTES # (AUTO) 1.4 X10'3 (1.1-4.8); LYMPHOCYTES % (AUTO) 31.9 % (21-51); MEAN CORPUSCULAR HEMOGLOBIN 29.3 PG (27.0-31.0); MEAN CORPUSCULAR HGB CONC 33.4 % (33.0-36.5); MEAN CORPUSCULAR VOLUME 87.9 FL (78-98); MEAN PLATELET VOLUME 9.2 FL (7.4-10.4); MONOCYTES # (AUTO) 0.3 X10'3 (0-0.9); MONOCYTES % (AUTO) 6.8 % (2-12); NEUTROPHILS # (AUTO) 2.6 X10'3 (1.8-7.7); NEUTROPHILS % (AUTO) 58.8 % (42-75); PLATELET COUNT 158 X10'3 (140-440); RED BLOOD COUNT 3.88 X10'6 (4.20-5.60); RED CELL DISTRIBUTION WIDTH 14.9 % (11.5-14.5); WHITE BLOOD COUNT 4.4 X10'3 (4.5-11.0)
[2018-02-27 05:49] LABS: ALANINE AMINOTRANSFERASE 70 U/L (12-78); ALBUMIN 2.7 G/DL (3.4-5.0); ALBUMIN/GLOBULIN RATIO 0.9 (1.1-1.5); ALKALINE PHOSPHATASE 105 IU/L (46-116); ANION GAP 5 (8-16); ASPARTATE AMINO TRANSFERASE 85 U/L (10-37); BILIRUBIN,TOTAL 0.3 MG/DL (0.1-1.0); BLOOD UREA NITROGEN 11 MG/DL (7-18); BUN/CREATININE RATIO 16.4 (6.6-38.0); CALCIUM 8.5 MG/DL (8.5-10.1); CHLORIDE 98 MMOL/L (99-107); CREATININE 0.67 MG/DL (0.40-0.90); GLUCOSE 267 MG/DL (70-104); MAGNESIUM 2.1 MG/DL (1.5-2.4); POTASSIUM 4.1 MMOL/L (3.5-5.1); SODIUM 135 MMOL/L (135-145); TOTAL CARBON DIOXIDE 31.9 MMOL/L (24-32); TOTAL PROTEIN 5.8 G/DL (6.4-8.2); eGFR > 90 ML/MIN
[2018-02-27 06:00] VITALS: BP 98/74
[2018-02-27] MEDS: albuterol 2.5 MG/3 ML nebule NEB SCH ×3 (07:22→11:37)
[2018-02-27] MEDS: BUDESONIDE 0.25 MG/2 ML AMPUL.NEB IH SCH (07:23)
[2018-02-27] MEDS: metFORMIN 500mg tablet PO SCH (07:30)
[2018-02-27] MEDS: aspirin 81mg tab.chew PO SCH (07:50)
[2018-02-27] MEDS: gabapentin 300mg capsule PO SCH (07:50)
[2018-02-27] MEDS: PARoxetine 20mg tablet PO SCH (07:51)
[2018-02-27] MEDS: lisinopril 2.5mg tablet PO SCH (07:51)
[2018-02-27] MEDS: heparin, porcine 5000 units/ml vial SQ SCH (07:51)
[2018-02-27] MEDS: HYDROcodone/acetaminophen 10/325mg tab PO PRN (07:57)
[2018-02-27] MEDS: K, MAG and/or Phos replacement - Verify level? MC SCH (08:00)
[2018-02-27] MEDS: ondansetron/PF 4mg/2ml inj IV PRN (08:03)
[2018-02-27] MEDS: insulin Lispro (HumaLOG) vial - multi-dose SQ SCH (08:18)
[2018-02-27] MEDS: diazepam 5mg tablet PO PRN (10:15)
[2018-02-27 11:00] VITALS: BP 86/56
[2018-02-27] MEDS ORDERED: insulin Lispro (HumaLOG) vial - multi-dose SQ ONE (13:10)
[2018-02-27] MEDS ORDERED: PANT-47 PO (13:24)
== END 2018-02-27 14:05 | disposition home or self-care (01) | DRG 420 ==
LOC: ER 17:27 → ED HOLD 21:23 → CICU 2S 22:35 → CMPBEDREQ 23:25 → PCU 3S 02-24 15:25
PROVIDERS: ATTEND Internal Medicine
DX: E10.10 Type 1 diabetes mellitus with ketoacidosis without coma (principal); N17.9 Acute kidney failure, unspecified; I50.9 Heart failure, unspecified; I11.0 Hypertensive heart disease with heart failure; I48.91 Unspecified atrial fibrillation; E87.1 Hypo-osmolality and hyponatremia; E78.5 Hyperlipidemia, unspecified; F41.9 Anxiety disorder, unspecified; G89.29 Other chronic pain; M54.9 Dorsalgia, unspecified; D64.9 Anemia, unspecified; K21.9 Gastro-esophageal reflux disease without esophagitis; Z79.4 Long term (current) use of insulin; Z80.8 Family history of malignant neoplasm of other organs or systems; Z87.891 Personal history of nicotine dependence; Z90.710 Acquired absence of both cervix and uterus; Z88.0 Allergy status to penicillin; Z90.49 Acquired absence of other specified parts of digestive tract
CPT/HCPCS: 36415; 36600; 74176; 80048; 80053; 81001; 82272; 82803; 82947; 82948; 83605; 83690; 83735; 84100; 84484; 85018; 85025; 87070; 94640; 94760; 97116; 97162; 97530; 99291; A6213; C9113; J1170; J1644; J1815; J2405; J7030

== ENCOUNTER 2018-03-05 13:53 | Inpatient (IN) | payer MEDICAID ==
[~2018-03-05] VITALS: Ht 170.2 cm; Wt 60.0 kg
[~2018-03-05 13:53] MED LIST changes: +HYDR-569 PO; -INSU100V9 SQ; +LANTUS SQ
[2018-03-05] MEDS ORDERED: normal saline 1000ML IV soln IVB ONE ×3 (13:55→14:45)
[2018-03-05] MEDS ORDERED: insulin regular, human 10 units/0.1 ml syringe IV ONE (13:55)
[2018-03-05 14:12] LABS: BASOPHILS % (AUTO) 0.2 % (0-1); EOSINOPHILS % (AUTO) 0 % (0-6); HEMATOCRIT 48.6 % (35.0-45.0); LYMPHOCYTES # (AUTO) 0.8 X10'3 (1.1-4.8); MEAN CORPUSCULAR HEMOGLOBIN 29.1 PG (27.0-31.0); MEAN CORPUSCULAR HGB CONC 32.9 % (33.0-36.5); MEAN CORPUSCULAR VOLUME 88.3 FL (78-98); MONOCYTES # (AUTO) 0.7 X10'3 (0-0.9); MONOCYTES % (AUTO) 3.4 % (2-12); NEUTROPHILS # (AUTO) 18.9 X10'3 (1.8-7.7); NEUTROPHILS % (AUTO) 92.4 % (42-75); PLATELET COUNT 354 X10'3 (140-440); RED CELL DISTRIBUTION WIDTH 14.9 % (11.5-14.5); WHITE BLOOD COUNT 20.4 X10'3 (4.5-11.0)
[2018-03-05] MEDS ORDERED: insulin regular, human 100 UNIT in normal saline 100ml IV soln 100 ML IV PRN ×2 (14:15)
[2018-03-05 14:16] LABS: ABG BASE EXCESS -24.3 mmol/L (-2.0-3.0); ABG HCO3 3.2 mmol/L (22.0-26.0); ABG OXYGEN SATURATION 97.8 % (95-98); ABG PCO2 (T) 10.8 mmHg (32.0-45.0); ABG PH (T) 7.083 (7.350-7.450); ABG PO2 (T) 130.2 mmHg (83-108); ALLEN'S TEST Positive; FCOHb 0.6 % (0.5-1.5); FMetHb 0.5 % (0.3-1.12); FO2Hb 96.7 % (94-100); TOTAL HEMOGLOBIN 16.2 G/dl (12.0-16.0)
[2018-03-05 14:22] LABS: INR 0.9 INR; PARTIAL THROMBOPLASTIN TIME 28 SECONDS (22-32); PROTHROMBIN TIME 9.4 SECONDS (9.0-12.0)
[2018-03-05 14:37] LABS: ALANINE AMINOTRANSFERASE 41 U/L (12-78); ALBUMIN 3.6 G/DL (3.4-5.0); ALBUMIN/GLOBULIN RATIO 0.8 (1.1-1.5); ALKALINE PHOSPHATASE 148 IU/L (46-116); ANION GAP 32 (8-16); BILIRUBIN,TOTAL 0.5 MG/DL (0.1-1.0); BLOOD UREA NITROGEN 37 MG/DL (7-18); BUN/CREATININE RATIO 25.3 (6.6-38.0); CALCIUM 9.5 MG/DL (8.5-10.1); CHLORIDE 90 MMOL/L (99-107); CREATININE 1.46 MG/DL (0.40-0.90); MAGNESIUM 2.3 MG/DL (1.5-2.4); SODIUM 130 MMOL/L (135-145); eGFR 38 ML/MIN
[2018-03-05 14:39] LABS: ASPARTATE AMINO TRANSFERASE 21 U/L (10-37); PHOSPHORUS 7.4 MG/DL (2.3-4.5)
[2018-03-05 14:41] LABS: TOTAL CARBON DIOXIDE 8.1 MMOL/L (24-32)
[2018-03-05 14:42] LABS: GLUCOSE 659 MG/DL (70-104); POTASSIUM 6.1 MMOL/L (3.5-5.1)
[2018-03-05] MEDS ORDERED: sodium bicarbonate (8.4%) inj. 50 MEQ in sodium chloride 0.45% 500ml 250 ML IV PRN (15:06)
[2018-03-05] MEDS: normal saline 1000ml 1,000 ML IV SCH ×5 (15:06→23:06)
[2018-03-05] MEDS ORDERED: sodium bicarbonate (8.4%) inj. 100 MEQ in sodium chloride 0.45% 500ml 500 ML IV PRN (15:06)
[2018-03-05] MEDS ORDERED: potassium Cl 40MEQ/NS 500ml 500 ML IV PRN ×2 (15:10)
[2018-03-05] MEDS ORDERED: Neutra Phos packet PO PRN (15:10)
[2018-03-05] MEDS ORDERED: acetaminophen 325mg tablet PO PRN (15:10)
[2018-03-05] MEDS ORDERED: magnesium hydroxide 30ml (MOM) UD suspension PO PRN (15:10)
[2018-03-05] MEDS ORDERED: insulin regular, human 10 units/0.1 ml syringe SQ PRN (15:10)
[2018-03-05] MEDS ORDERED: potassium Cl 20 mEq SR tablet PO PRN ×2 (15:10)
[2018-03-05] MEDS ORDERED: sodium phosphate inj. 30 MMOL in dextrose 5%-water 250 ML IV PRN (15:10)
[2018-03-05] MEDS ORDERED: mag hydrox/Alum hydrox/simeth 30ml oral suspension PO PRN (15:10)
[2018-03-05] MEDS ORDERED: HYDROcodone/acetaminophen 10/325mg tab PO PRN (15:10)
[2018-03-05] MEDS ORDERED: sodium phosphate inj. 15 MMOL in dextrose 5%-water 150 ML IV PRN (15:10)
[2018-03-05] MEDS ORDERED: diphenhydrAMINE 25mg capsule PO PRN (15:10)
[2018-03-05 15:43] LABS: ALBUMIN 3.1 G/DL (3.4-5.0); ANION GAP 20 (8-16); BLOOD UREA NITROGEN 33 MG/DL (7-18); BUN/CREATININE RATIO 24.8 (6.6-38.0); CALCIUM 8.8 MG/DL (8.5-10.1); CHLORIDE 104 MMOL/L (99-107); CREATININE 1.33 MG/DL (0.40-0.90); GLUCOSE 408 MG/DL (70-104); POTASSIUM 4.5 MMOL/L (3.5-5.1); SODIUM 135 MMOL/L (135-145); eGFR 42 ML/MIN
[2018-03-05 15:45] LABS: TOTAL CARBON DIOXIDE 10.8 MMOL/L (24-32)
[2018-03-05] MEDS: morphine 4 MG/ML inj SYRINge IV PRN ×2 (16:27→21:10)
[2018-03-05] MEDS: insulin regular, DKA only 100 UNIT in normal saline 100ml IV soln 99 ML IV SCH ×6 (17:21→21:19)
[2018-03-05 17:31] VITALS: BP 97/65
[2018-03-05 19:00] VITALS: BP 97/65
[2018-03-05] MEDS: potassium CL 20mEq in D5-1/2NS 1,000 ML IV PRN (19:49)
[2018-03-05 20:29] LABS: ALBUMIN 2.9 G/DL (3.4-5.0); ANION GAP 17 (8-16); BLOOD UREA NITROGEN 24 MG/DL (7-18); BUN/CREATININE RATIO 24.7 (6.6-38.0); CALCIUM 7.8 MG/DL (8.5-10.1); CHLORIDE 108 MMOL/L (99-107); CREATININE 0.97 MG/DL (0.40-0.90); GLUCOSE 120 MG/DL (70-104); PHOSPHORUS 2.8 MG/DL (2.3-4.5); POTASSIUM 4.4 MMOL/L (3.5-5.1); SODIUM 140 MMOL/L (135-145); TOTAL CARBON DIOXIDE 15.2 MMOL/L (24-32); eGFR 61 ML/MIN
[2018-03-05 23:00] VITALS: BP 101/56
[2018-03-05 23:58] LABS: ALBUMIN 2.6 G/DL (3.4-5.0); ANION GAP 10 (8-16); BLOOD UREA NITROGEN 20 MG/DL (7-18); BUN/CREATININE RATIO 21.7 (6.6-38.0); CALCIUM 7.8 MG/DL (8.5-10.1); CHLORIDE 110 MMOL/L (99-107); CREATININE 0.92 MG/DL (0.40-0.90); GLUCOSE 124 MG/DL (70-104); PHOSPHORUS 2.4 MG/DL (2.3-4.5); POTASSIUM 4.1 MMOL/L (3.5-5.1); SODIUM 142 MMOL/L (135-145); TOTAL CARBON DIOXIDE 21.6 MMOL/L (24-32); eGFR 65 ML/MIN
[2018-03-06] MEDS: morphine 4 MG/ML inj SYRINge IV PRN ×6 (00:25→23:05)
[2018-03-06] MEDS: insulin regular, DKA only 100 UNIT in normal saline 100ml IV soln 99 ML IV SCH ×2 (01:35)
[2018-03-06 03:00] VITALS: BP 92/60
[2018-03-06] MEDS: potassium CL 20mEq in D5-1/2NS 1,000 ML IV PRN ×3 (04:26→10:55)
[2018-03-06 05:26] LABS: BASOPHILS % (AUTO) 0.3 % (0-1); EOSINOPHILS # (AUTO) 0.2 X10'3 (0-0.9); EOSINOPHILS % (AUTO) 1.8 % (0-6); HEMATOCRIT 35.9 % (35.0-45.0); HEMOGLOBIN 11.9 g/dl (12.0-16.0); LYMPHOCYTES # (AUTO) 2.2 X10'3 (1.1-4.8); LYMPHOCYTES % (AUTO) 20.1 % (21-51); MEAN CORPUSCULAR HEMOGLOBIN 29.2 PG (27.0-31.0); MEAN CORPUSCULAR HGB CONC 33.2 % (33.0-36.5); MEAN CORPUSCULAR VOLUME 88.1 FL (78-98); MEAN PLATELET VOLUME 8.8 FL (7.4-10.4); MONOCYTES % (AUTO) 8.9 % (2-12); NEUTROPHILS # (AUTO) 7.6 X10'3 (1.8-7.7); NEUTROPHILS % (AUTO) 68.9 % (42-75); PLATELET COUNT 261 X10'3 (140-440); RED BLOOD COUNT 4.08 X10'6 (4.20-5.60); WHITE BLOOD COUNT 11.1 X10'3 (4.5-11.0)
[2018-03-06 05:53] LABS: ALANINE AMINOTRANSFERASE 26 U/L (12-78); ALBUMIN 2.5 G/DL (3.4-5.0); ALBUMIN/GLOBULIN RATIO 0.9 (1.1-1.5); ALKALINE PHOSPHATASE 87 IU/L (46-116); ANION GAP 8 (8-16); ASPARTATE AMINO TRANSFERASE 13 U/L (10-37); BILIRUBIN,TOTAL 0.3 MG/DL (0.1-1.0); BLOOD UREA NITROGEN 18 MG/DL (7-18); BUN/CREATININE RATIO 22.8 (6.6-38.0); CALCIUM 7.8 MG/DL (8.5-10.1); CHLORIDE 110 MMOL/L (99-107); CREATININE 0.79 MG/DL (0.40-0.90); GLUCOSE 128 MG/DL (70-104); POTASSIUM 3.8 MMOL/L (3.5-5.1); SODIUM 141 MMOL/L (135-145); TOTAL CARBON DIOXIDE 22.6 MMOL/L (24-32); TOTAL PROTEIN 5.3 G/DL (6.4-8.2); eGFR 77 ML/MIN
[2018-03-06 05:57] LABS: MAGNESIUM 1.4 MG/DL (1.5-2.4)
[2018-03-06 06:30] VITALS: BP 93/55
[2018-03-06] MEDS: normal saline 1000ml 1,000 ML IV SCH ×3 (06:35→11:06)
[2018-03-06] MEDS: K and/or MAG REPLACEMENT MC SCH (07:08)
[2018-03-06] MEDS: enoxaparin 40mg/0.4ml syringe SUBCUT SCH (07:26)
[2018-03-06] MEDS ORDERED: HYDROcodone/acetaminophen 5mg/325mg tablet PO PRN (09:05)
[2018-03-06] MEDS ORDERED: albuterol 2.5 MG/3 ML nebule NEB PRN (09:10)
[2018-03-06 11:00] VITALS: BP 90/60
[2018-03-06] MEDS: HYDROcodone/acetaminophen 5mg/325mg tablet PO PRN (12:03)
[2018-03-06 12:53] LABS: H PYLORI ANTIBODY POSITIVE (Neg)
[2018-03-06] MEDS ORDERED: dextrose ORAL solution 15 GM/59 ML bottle PO PRN ×2 (13:20)
[2018-03-06] MEDS ORDERED: glucagon, human recombinant 1mg kit SUBCUT PRN (13:20)
[2018-03-06] MEDS ORDERED: dextrose 50%-water 50ml dispensing syringe IV PRN ×2 (13:20)
[2018-03-06] MEDS ORDERED: HYDR-3972 (14:05)
[2018-03-06] MEDS: ondansetron/PF 4mg/2ml inj IV PRN ×2 (14:53→23:05)
[2018-03-06] MEDS: insulin Lispro (HumaLOG) vial - multi-dose SQ SCH ×2 (14:59→18:44)
[2018-03-06 15:00] VITALS: BP 92/55
[2018-03-06] MEDS ORDERED: insulin glargine (Lantus) pen - multi-dose SQ ONE (15:00)
[2018-03-06] MEDS: sodium chloride 0.45% 1,000 ML IV SCH (16:00)
[2018-03-06] MEDS: gabapentin 300mg capsule PO SCH (16:09)
[2018-03-06] MEDS: metFORMIN 500mg tablet PO SCH (17:12)
[2018-03-06] MEDS: metoclopramide 5 mg/ml inj IV PRN (17:50)
[2018-03-06 19:00] VITALS: BP 105/60
[2018-03-06] MEDS ORDERED: magnesium Cl slow-release 64mg tablet PO PRN (19:30)
[2018-03-06] MEDS ORDERED: magnesium 2GM in 50ml NS 50 ML IV PRN (19:30)
[2018-03-06] MEDS ORDERED: magnesium 4gm in 100ml NS 100 ML IV PRN (19:30)
[2018-03-06] MEDS ORDERED: BUDESONIDE 0.25 MG/2 ML AMPUL.NEB IH SCH (20:00)
[2018-03-06] MEDS ORDERED: insulin glargine (Lantus) pen - multi-dose SQ SCH (21:00)
[2018-03-06] MEDS ORDERED: atorvastatin 10mg tablet PO SCH (21:00)
[2018-03-06] MEDS: insulin glargine (Lantus) pen - multi-dose SQ SCH (21:05)
[2018-03-06 23:00] VITALS: BP 96/65
[2018-03-07] MEDS: gabapentin 300mg capsule PO SCH ×2 (00:29→07:24)
[2018-03-07] MEDS: metoclopramide 5 mg/ml inj IV PRN (02:18)
[2018-03-07] MEDS: morphine 4 MG/ML inj SYRINge IV PRN (02:18)
[2018-03-07 03:00] VITALS: BP 89/54
[2018-03-07] MEDS: sodium chloride 0.45% 1,000 ML IV SCH (04:00)
[2018-03-07 05:23] LABS: BASOPHILS % (AUTO) 0.4 % (0-1); EOSINOPHILS # (AUTO) 0.2 X10'3 (0-0.9); EOSINOPHILS % (AUTO) 2.4 % (0-6); HEMATOCRIT 32.8 % (35.0-45.0); HEMOGLOBIN 11.2 g/dl (12.0-16.0); LYMPHOCYTES # (AUTO) 1.9 X10'3 (1.1-4.8); LYMPHOCYTES % (AUTO) 27.3 % (21-51); MEAN CORPUSCULAR HEMOGLOBIN 29.6 PG (27.0-31.0); MEAN CORPUSCULAR HGB CONC 34.1 % (33.0-36.5); MEAN CORPUSCULAR VOLUME 86.9 FL (78-98); MEAN PLATELET VOLUME 8.5 FL (7.4-10.4); MONOCYTES # (AUTO) 0.5 X10'3 (0-0.9); NEUTROPHILS # (AUTO) 4.5 X10'3 (1.8-7.7); NEUTROPHILS % (AUTO) 62.9 % (42-75); PLATELET COUNT 224 X10'3 (140-440); RED BLOOD COUNT 3.78 X10'6 (4.20-5.60); RED CELL DISTRIBUTION WIDTH 15.1 % (11.5-14.5); WHITE BLOOD COUNT 7.1 X10'3 (4.5-11.0)
[2018-03-07 05:30] VITALS: BP 99/52
[2018-03-07 05:34] LABS: ALANINE AMINOTRANSFERASE 39 U/L (12-78); ALBUMIN 2.3 G/DL (3.4-5.0); ALBUMIN/GLOBULIN RATIO 0.8 (1.1-1.5); ALKALINE PHOSPHATASE 82 IU/L (46-116); ANION GAP 9 (8-16); ASPARTATE AMINO TRANSFERASE 44 U/L (10-37); BILIRUBIN,TOTAL 0.3 MG/DL (0.1-1.0); BLOOD UREA NITROGEN 7 MG/DL (7-18); BUN/CREATININE RATIO 11.7 (6.6-38.0); CALCIUM 7.8 MG/DL (8.5-10.1); CHLORIDE 108 MMOL/L (99-107); GLUCOSE 104 MG/DL (70-104); MAGNESIUM 1.5 MG/DL (1.5-2.4); POTASSIUM 3.4 MMOL/L (3.5-5.1); SODIUM 140 MMOL/L (135-145); TOTAL CARBON DIOXIDE 23.2 MMOL/L (24-32); TOTAL PROTEIN 5.1 G/DL (6.4-8.2); eGFR > 90 ML/MIN
[2018-03-07] MEDS: metFORMIN 500mg tablet PO SCH (07:24)
[2018-03-07] MEDS: HYDROcodone/acetaminophen 5mg/325mg tablet PO PRN (07:24)
[2018-03-07] MEDS: enoxaparin 40mg/0.4ml syringe SUBCUT SCH (07:25)
[2018-03-07] MEDS: K and/or MAG REPLACEMENT MC SCH (07:28)
[2018-03-07] MEDS ORDERED: pantoprazole 40mg Tablet.DR PO SCH (07:30)
[2018-03-07] MEDS ORDERED: PARoxetine 20mg tablet PO SCH (08:00)
[2018-03-07] MEDS ORDERED: lisinopril 2.5mg tablet PO SCH (08:00)
[2018-03-07] MEDS ORDERED: aspirin 81mg tablet.DR PO SCH (08:00)
[2018-03-07] MEDS: insulin glargine (Lantus) pen - multi-dose SQ SCH (08:07)
[2018-03-07] MEDS: insulin Lispro (HumaLOG) vial - multi-dose SQ SCH (08:08)
[2018-03-07 11:00] VITALS: BP 100/69
== END 2018-03-07 13:00 | disposition home or self-care (01) | DRG 469 ==
LOC: ER 13:53 → ED HOLD 15:06 → EDBEDREQ 15:30 → PCU 3S 16:40
PROVIDERS: ADMIT Internal Medicine; ATTEND Internal Medicine
DX: N17.9 Acute kidney failure, unspecified (principal); E11.10 Type 2 diabetes mellitus with ketoacidosis without coma; I50.9 Heart failure, unspecified; E87.1 Hypo-osmolality and hyponatremia; E87.5 Hyperkalemia; E86.0 Dehydration; I48.91 Unspecified atrial fibrillation; D72.829 Elevated white blood cell count, unspecified; E78.00 Pure hypercholesterolemia, unspecified; F17.210 Nicotine dependence, cigarettes, uncomplicated; J44.9 Chronic obstructive pulmonary disease, unspecified; K21.9 Gastro-esophageal reflux disease without esophagitis; Z79.4 Long term (current) use of insulin; Z85.41 Personal history of malignant neoplasm of cervix uteri; Z90.710 Acquired absence of both cervix and uterus; Z90.49 Acquired absence of other specified parts of digestive tract
CPT/HCPCS: 36415; 36600; 80048; 80053; 82803; 82948; 83735; 84100; 84484; 85018; 85025; 85610; 85730; 86677; 87070; 93005; 96374; 99291; J1650; J1815; J2270; J2405; J2765; J7030; J7042

== ENCOUNTER 2018-03-14 08:32 | Outpatient (CLI) | payer MEDICAID ==
[~2018-03-14 08:32] MED LIST changes: +HYDR-3972; -LIRA0.6P SQ
== END 2018-03-14 23:59 | disposition home or self-care (01) ==
LOC: DIABETIC 08:32
PROVIDERS: ATTEND Family Medicine
DX: E11.65 Type 2 diabetes mellitus with hyperglycemia (principal); I11.0 Hypertensive heart disease with heart failure; I50.9 Heart failure, unspecified; J45.909 Unspecified asthma, uncomplicated; Z87.891 Personal history of nicotine dependence
CPT/HCPCS: G0108

== ENCOUNTER 2018-06-19 20:42 | Inpatient (IN) | payer MEDICAID ==
[~2018-06-19] VITALS: Ht 170.2 cm; Wt 62.0 kg
[~2018-06-19 20:42] MED LIST changes: -HYDR-3972; +HYDR-565 PO; -HYDR-569 PO; -LANTUS SQ; -METF500T7 PO; +MORP-64 PO
[2018-06-19] MEDS ORDERED: potassium CL 20mEq in D5-1/2NS 1,000 ML IV PRN (20:48)
[2018-06-19] MEDS ORDERED: insulin regular, human 10 units/0.1 ml syringe SQ PRN (20:50)
[2018-06-19] MEDS: normal saline 1000ml 1,000 ML IV SCH ×3 (21:18→21:20)
[2018-06-19] MEDS ORDERED: sodium bicarbonate (8.4%) inj. 50 MEQ in dextrose 5% water 500ml 250 ML IV PRN (21:24)
[2018-06-19 21:25] LABS: ABG BASE EXCESS -23.4 mmol/L (-2.0-3.0); ABG HCO3 4.3 mmol/L (22.0-26.0); ABG OXYGEN SATURATION 97.7 % (95-98); ABG PCO2 (T) 14.7 mmHg (32.0-45.0); ABG PH (T) 7.087 (7.350-7.450); ABG PO2 (T) 125.9 mmHg (83-108); ALLEN'S TEST Positive; FCOHb 0.1 % (0.5-1.5); FMetHb 0.4 % (0.3-1.12); FO2Hb 97.2 % (94-100); PATIENT TEMPERATURE 37.1; RESPIRATORY RATE (OBSERVED) 24 b/min; TOTAL HEMOGLOBIN 14.5 G/dl (12.0-16.0)
[2018-06-19] MEDS ORDERED: sodium bicarbonate (0.9mEq/ml) 44.6 mEq/50ml syringe IV ONE (21:25)
[2018-06-19 21:30] LABS: BASOPHILS # (AUTO) 0.1 X10'3 (0-0.2); BASOPHILS % (AUTO) 0.8 % (0-1); EOSINOPHILS # (AUTO) 0.1 X10'3 (0-0.9); EOSINOPHILS % (AUTO) 0.7 % (0-6); HEMATOCRIT 45.2 % (35.0-45.0); HEMOGLOBIN 14.6 g/dl (12.0-16.0); LYMPHOCYTES # (AUTO) 1.3 X10'3 (1.1-4.8); LYMPHOCYTES % (AUTO) 15.3 % (21-51); MEAN CORPUSCULAR HEMOGLOBIN 29.1 PG (27.0-31.0); MEAN CORPUSCULAR HGB CONC 32.4 % (33.0-36.5); MEAN CORPUSCULAR VOLUME 89.8 FL (78-98); MEAN PLATELET VOLUME 10.7 FL (7.4-10.4); MONOCYTES # (AUTO) 0.4 X10'3 (0-0.9); MONOCYTES % (AUTO) 4.9 % (2-12); NEUTROPHILS # (AUTO) 6.7 X10'3 (1.8-7.7); NEUTROPHILS % (AUTO) 78.3 % (42-75); PLATELET COUNT 251 X10'3 (140-440); RED BLOOD COUNT 5.03 X10'6 (4.20-5.60); RED CELL DISTRIBUTION WIDTH 16.9 % (11.5-14.5); WHITE BLOOD COUNT 8.5 X10'3 (4.5-11.0)
[2018-06-19 21:54] LABS: ALBUMIN 3.4 G/DL (3.4-5.0); ANION GAP 29 (8-16); BLOOD UREA NITROGEN 20 MG/DL (7-18); BUN/CREATININE RATIO 15.4 (6.6-38.0); CALCIUM 8.6 MG/DL (8.5-10.1); CHLORIDE 95 MMOL/L (99-107); PHOSPHORUS 5.2 MG/DL (2.3-4.5); POTASSIUM 5.5 MMOL/L (3.5-5.1); SODIUM 132 MMOL/L (135-145); eGFR 44 ML/MIN
[2018-06-19 22:02] LABS: HCG SERUM QL NEGATIVE
[2018-06-19 22:06] LABS: TOTAL CARBON DIOXIDE 8.1 MMOL/L (24-32)
[2018-06-19 22:11] LABS: CLARITY,URINE CLEAR (Clear); COLOR,URINE STRAW (Yellow); GLUCOSE, URINE 500 mg/dl (Neg); KETONES,URINE >=80 mg/dl (Neg); LEUKOCYTE ESTERASE ,URINE NEGATIVE (Neg); NITRITES, URINE NEGATIVE (Neg); OCCULT BLOOD,URINE NEGATIVE (Neg); PH,URINE 5.5 (4.8-8.0); PROTEIN,URINE NEGATIVE (Neg); UROBILINOGEN,URINE 0.2 E.U/dL (0.2-1.0)
[2018-06-19 22:12] LABS: UA COLLECTION TYPE CLN CATCH MIDSTREAM
[2018-06-19 22:14] LABS: ALANINE AMINOTRANSFERASE 30 U/L (12-78); ALBUMIN/GLOBULIN RATIO 0.9 (1.1-1.5); ALKALINE PHOSPHATASE 101 IU/L (46-116); ASPARTATE AMINO TRANSFERASE 15 U/L (10-37); BILIRUBIN,DIRECT 0.1 MG/DL (0-0.3); BILIRUBIN,TOTAL 0.4 MG/DL (0.1-1.0); TOTAL PROTEIN 7.1 G/DL (6.4-8.2)
[2018-06-19 22:17] LABS: PLATELET ESTIMATE NORMAL
[2018-06-19 22:18] LABS: ANISOCYTOSIS 1+; BURR CELLS FEW; ELLIPTOCYTES FEW; GIANT PLATELET FEW; POLYCHROMASIA FEW
[2018-06-19] MEDS: insulin regular, DKA only 100 UNIT in normal saline 100ml IV soln 99 ML IV SCH ×2 (22:28)
[2018-06-19] MEDS: sod bicarbonate 150mEq in D5W 1,150 ML IV SCH (22:36)
[2018-06-19 23:29] LABS: GLUCOSE 534 MG/DL (70-104)
[2018-06-20] VITALS (7 sets, daily range): BP systolic 79–129; BP diastolic 47–62
[2018-06-20] MEDS ORDERED: glucagon, human recombinant 1mg kit SUBCUT PRN (00:15)
[2018-06-20] MEDS ORDERED: MESSAGE TO PHARMACY PO ONE (00:15)
[2018-06-20] MEDS ORDERED: dextrose ORAL solution 15 GM/59 ML bottle PO PRN ×2 (00:15)
[2018-06-20] MEDS ORDERED: dextrose 50%-water 50ml dispensing syringe IV PRN ×3 (00:15→00:20)
[2018-06-20] MEDS ORDERED: ondansetron 4mg rapidly disintigrating tab PO PRN (00:20)
[2018-06-20] MEDS ORDERED: insulin regular, human inj. 100 UNITS in normal saline 100ml IV soln 100 ML IV SCH ×2 (00:20)
[2018-06-20] MEDS ORDERED: potassium Cl 20 mEq SR tablet PO PRN ×2 (00:20)
[2018-06-20] MEDS ORDERED: morphine ER 15mg tablet PO PRN (00:20)
[2018-06-20] MEDS ORDERED: potassium Cl 40MEQ/NS 500ml 500 ML IV PRN ×2 (00:20)
[2018-06-20] MEDS ORDERED: diazepam 5mg tablet PO PRN (00:20)
[2018-06-20] MEDS ORDERED: acetaminophen 325mg tablet PO PRN (00:30)
[2018-06-20] MEDS ORDERED: diphenhydrAMINE 25mg capsule PO PRN (00:30)
[2018-06-20] MEDS ORDERED: morphine 2 MG/ML inj. syringe IV PRN (00:30)
[2018-06-20] MEDS ORDERED: HYDROmorphone 1 mg/ml syringe IV PRN (00:30)
[2018-06-20] MEDS ORDERED: bisacodyl 10mg suppository rectal RC PRN (00:30)
[2018-06-20] MEDS ORDERED: mag hydrox/Alum hydrox/simeth 30ml oral suspension PO PRN (00:30)
[2018-06-20] MEDS ORDERED: diphenhydrAMINE 50 mg/ml inj IV PRN (00:30)
[2018-06-20 00:41] LABS: ALBUMIN 2.8 G/DL (3.4-5.0); ANION GAP 22 (8-16); BLOOD UREA NITROGEN 17 MG/DL (7-18); BUN/CREATININE RATIO 14.9 (6.6-38.0); CALCIUM 7.5 MG/DL (8.5-10.1); CHLORIDE 105 MMOL/L (99-107); CREATININE 1.14 MG/DL (0.40-0.90); GLUCOSE 325 MG/DL (70-104); LIPASE 100 U/L (73-393); MAGNESIUM 1.7 MG/DL (1.5-2.4); PHOSPHORUS 3.3 MG/DL (2.3-4.5); POTASSIUM 4.9 MMOL/L (3.5-5.1); SODIUM 139 MMOL/L (135-145); eGFR 51 ML/MIN
[2018-06-20 00:50] LABS: TOTAL CARBON DIOXIDE 12.3 MMOL/L (24-32)
[2018-06-20 00:59] LABS: URINE AMPHETAMINE SCREEN NEGATIVE (Neg); URINE BARBITUATE SCREEN NEGATIVE (Neg); URINE BENZODIAZEPINES SCREEN NEGATIVE (Neg); URINE CANNABINOID SCREEN NEGATIVE (Neg); URINE COCAINE SCREEN NEGATIVE (Neg); URINE METHADONE SCREEN NEGATIVE (Neg); URINE OPIATE SCREEN NEGATIVE (Neg); URINE PHENCYCLIDINE SCREEN NEGATIVE (Neg)
[2018-06-20 01:03] LABS: ALANINE AMINOTRANSFERASE 25 U/L (12-78); ALBUMIN/GLOBULIN RATIO 0.9 (1.1-1.5); ALKALINE PHOSPHATASE 87 IU/L (46-116); ASPARTATE AMINO TRANSFERASE 14 U/L (10-37); BILIRUBIN,TOTAL 0.3 MG/DL (0.1-1.0); TROPONIN I < 0.04 NG/ML (0.0-0.05)
[2018-06-20 01:16] LABS: OSMOLALITY 316 MOSM/K (280-300)
[2018-06-20] MEDS: HYDROmorphone 1 mg/ml syringe IV PRN ×2 (01:19→05:30)
[2018-06-20] MEDS: normal saline 1000ml 1,000 ML IV SCH ×5 (01:20→16:48)
[2018-06-20] MEDS: metoclopramide 5 mg/ml inj IV PRN ×2 (01:20→22:43)
[2018-06-20] MEDS: dextrose 5%-1/2 normal saline 1,000 ML IV SCH ×4 (02:08→16:04)
[2018-06-20 03:27] LABS: ALANINE AMINOTRANSFERASE 26 U/L (12-78); ALBUMIN 2.7 G/DL (3.4-5.0); ALBUMIN/GLOBULIN RATIO 0.9 (1.1-1.5); ALKALINE PHOSPHATASE 72 IU/L (46-116); ANION GAP 15 (8-16); ASPARTATE AMINO TRANSFERASE 13 U/L (10-37); BILIRUBIN,TOTAL 0.3 MG/DL (0.1-1.0); BLOOD UREA NITROGEN 13 MG/DL (7-18); BUN/CREATININE RATIO 12.4 (6.6-38.0); CALCIUM 7.3 MG/DL (8.5-10.1); CHLORIDE 107 MMOL/L (99-107); CREATININE 1.05 MG/DL (0.40-0.90); GLUCOSE 133 MG/DL (70-104); POTASSIUM 3.9 MMOL/L (3.5-5.1); SODIUM 139 MMOL/L (135-145); TOTAL CARBON DIOXIDE 17.4 MMOL/L (24-32); TOTAL PROTEIN 5.6 G/DL (6.4-8.2); eGFR 56 ML/MIN
[2018-06-20] MEDS: HYDROcodone/acetaminophen 5mg/325mg tablet PO PRN (03:53)
[2018-06-20] MEDS: sod bicarbonate 150mEq in D5W 1,150 ML IV SCH ×2 (05:20→13:00)
[2018-06-20] MEDS: magnesium hydroxide 30ml (MOM) UD suspension PO PRN ×2 (05:44→21:40)
[2018-06-20 06:42] LABS: ALANINE AMINOTRANSFERASE 28 U/L (12-78); ALBUMIN 2.6 G/DL (3.4-5.0); ALBUMIN/GLOBULIN RATIO 0.9 (1.1-1.5); ALKALINE PHOSPHATASE 69 IU/L (46-116); ANION GAP 15 (8-16); ASPARTATE AMINO TRANSFERASE 7 U/L (10-37); BILIRUBIN,TOTAL 0.3 MG/DL (0.1-1.0); BLOOD UREA NITROGEN 11 MG/DL (7-18); BUN/CREATININE RATIO 11.1 (6.6-38.0); CALCIUM 7.1 MG/DL (8.5-10.1); CHLORIDE 105 MMOL/L (99-107); CREATININE 0.99 MG/DL (0.40-0.90); GLUCOSE 198 MG/DL (70-104); PHOSPHORUS 2.4 MG/DL (2.3-4.5); POTASSIUM 3.6 MMOL/L (3.5-5.1); SODIUM 137 MMOL/L (135-145); TOTAL CARBON DIOXIDE 17.3 MMOL/L (24-32); TOTAL PROTEIN 5.4 G/DL (6.4-8.2); eGFR 60 ML/MIN
[2018-06-20] MEDS: docusate sod 100mg capsule PO SCH ×2 (07:36→20:35)
[2018-06-20] MEDS: aspirin 81mg tab.chew PO SCH (07:36)
[2018-06-20] MEDS: gabapentin 300mg capsule PO SCH ×2 (07:37→15:39)
[2018-06-20] MEDS: PARoxetine 20mg tablet PO SCH (07:37)
[2018-06-20] MEDS: HYDROcodone/acetaminophen 10/325mg tab PO SCH (07:37)
[2018-06-20] MEDS: pantoprazole 40mg Tablet.DR PO SCH ×2 (07:38→20:35)
[2018-06-20] MEDS: K and/or MAG REPLACEMENT MC SCH (08:00)
[2018-06-20] MEDS: heparin, porcine 5000 units/ml vial SQ SCH ×2 (08:00→20:00)
[2018-06-20] MEDS: albuterol 2.5 MG/3 ML nebule NEB SCH ×4 (08:00→20:13)
[2018-06-20] MEDS: insulin regular, DKA only 100 UNIT in normal saline 100ml IV soln 99 ML IV SCH ×2 (08:56)
[2018-06-20] MEDS: morphine 2 MG/ML inj. syringe IV PRN ×2 (11:14→20:44)
[2018-06-20 11:56] LABS: ABG BASE EXCESS -3.7 mmol/L (-2.0-3.0); ABG HCO3 20.8 mmol/L (22.0-26.0); ABG OXYGEN SATURATION 97.3 % (95-98); ABG PCO2 (T) 36.2 mmHg (32.0-45.0); ABG PH (T) 7.378 (7.350-7.450); ABG PO2 (T) 86.3 mmHg (83-108); ALLEN'S TEST Positive; FCOHb 0.3 % (0.5-1.5); FMetHb 0.2 % (0.3-1.12); FO2Hb 96.8 % (94-100); TOTAL HEMOGLOBIN 12.3 G/dl (12.0-16.0)
[2018-06-20] MEDS ORDERED: normal saline 500ml IV soln 1,000 ML IV ONE (12:20)
[2018-06-20] MEDS ORDERED: clonazePAM 0.5mg tablet PO ONE (13:20)
[2018-06-20 13:30] LABS: ALANINE AMINOTRANSFERASE 24 U/L (12-78); ALBUMIN 2.5 G/DL (3.4-5.0); ALBUMIN/GLOBULIN RATIO 0.9 (1.1-1.5); ALKALINE PHOSPHATASE 71 IU/L (46-116); ANION GAP 11 (8-16); ASPARTATE AMINO TRANSFERASE 23 U/L (10-37); BILIRUBIN,TOTAL 0.2 MG/DL (0.1-1.0); BLOOD UREA NITROGEN 9 MG/DL (7-18); BUN/CREATININE RATIO 10.8 (6.6-38.0); CALCIUM 7.4 MG/DL (8.5-10.1); CHLORIDE 103 MMOL/L (99-107); CREATININE 0.83 MG/DL (0.40-0.90); GLUCOSE 171 MG/DL (70-104); POTASSIUM 3.5 MMOL/L (3.5-5.1); SODIUM 137 MMOL/L (135-145); TOTAL CARBON DIOXIDE 22.7 MMOL/L (24-32); TOTAL PROTEIN 5.2 G/DL (6.4-8.2); eGFR 73 ML/MIN
[2018-06-20 18:04] LABS: ALANINE AMINOTRANSFERASE 26 U/L (12-78); ALBUMIN 2.5 G/DL (3.4-5.0); ALBUMIN/GLOBULIN RATIO 0.9 (1.1-1.5); ALKALINE PHOSPHATASE 71 IU/L (46-116); ANION GAP 11 (8-16); ASPARTATE AMINO TRANSFERASE 32 U/L (10-37); BILIRUBIN,TOTAL 0.2 MG/DL (0.1-1.0); BLOOD UREA NITROGEN 6 MG/DL (7-18); BUN/CREATININE RATIO 7.7 (6.6-38.0); CHLORIDE 104 MMOL/L (99-107); CREATININE 0.78 MG/DL (0.40-0.90); GLUCOSE 191 MG/DL (70-104); POTASSIUM 3.3 MMOL/L (3.5-5.1); SODIUM 137 MMOL/L (135-145); TOTAL CARBON DIOXIDE 22.4 MMOL/L (24-32); TOTAL PROTEIN 5.2 G/DL (6.4-8.2); eGFR 78 ML/MIN
[2018-06-20] MEDS: insulin Lispro (HumaLOG) vial - multi-dose SQ SCH (19:27)
[2018-06-20] MEDS: ondansetron/PF 4mg/2ml inj IV PRN (19:33)
[2018-06-20] MEDS: clonazePAM 0.5mg tablet PO SCH (20:35)
[2018-06-20] MEDS: atorvastatin 10mg tablet PO SCH (20:35)
[2018-06-20] MEDS ORDERED: temazepam 15mg capsule PO PRN (21:00)
[2018-06-21] VITALS (7 sets, daily range): BP systolic 85–111; BP diastolic 47–80
[2018-06-21] MEDS: gabapentin 300mg capsule PO SCH ×3 (01:25→16:51)
[2018-06-21] MEDS: morphine 2 MG/ML inj. syringe IV PRN ×2 (03:03→21:44)
[2018-06-21 05:15] LABS: BASOPHILS % (AUTO) 0.4 % (0-1); EOSINOPHILS # (AUTO) 0.1 X10'3 (0-0.9); HEMOGLOBIN 11.6 g/dl (12.0-16.0); LYMPHOCYTES # (AUTO) 1.7 X10'3 (1.1-4.8); LYMPHOCYTES % (AUTO) 29.8 % (21-51); MEAN CORPUSCULAR HEMOGLOBIN 29.2 PG (27.0-31.0); MEAN CORPUSCULAR VOLUME 88.5 FL (78-98); MEAN PLATELET VOLUME 10.2 FL (7.4-10.4); MONOCYTES # (AUTO) 0.4 X10'3 (0-0.9); MONOCYTES % (AUTO) 6.3 % (2-12); NEUTROPHILS # (AUTO) 3.4 X10'3 (1.8-7.7); NEUTROPHILS % (AUTO) 61.5 % (42-75); PLATELET COUNT 154 X10'3 (140-440); RED BLOOD COUNT 3.96 X10'6 (4.20-5.60); RED CELL DISTRIBUTION WIDTH 16.4 % (11.5-14.5); WHITE BLOOD COUNT 5.6 X10'3 (4.5-11.0)
[2018-06-21 05:35] LABS: ALANINE AMINOTRANSFERASE 47 U/L (12-78); ALBUMIN 2.4 G/DL (3.4-5.0); ALBUMIN/GLOBULIN RATIO 0.9 (1.1-1.5); ALKALINE PHOSPHATASE 80 IU/L (46-116); ANION GAP 7 (8-16); ASPARTATE AMINO TRANSFERASE 89 U/L (10-37); BILIRUBIN,TOTAL 0.3 MG/DL (0.1-1.0); BLOOD UREA NITROGEN 7 MG/DL (7-18); BUN/CREATININE RATIO 11.5 (6.6-38.0); CALCIUM 7.4 MG/DL (8.5-10.1); CHLORIDE 103 MMOL/L (99-107); CREATININE 0.61 MG/DL (0.40-0.90); GLUCOSE 292 MG/DL (70-104); POTASSIUM 3.9 MMOL/L (3.5-5.1); SODIUM 136 MMOL/L (135-145); TOTAL CARBON DIOXIDE 26.2 MMOL/L (24-32); eGFR > 90 ML/MIN
[2018-06-21] MEDS: normal saline 1000ml 1,000 ML IV SCH ×4 (06:32→11:59)
[2018-06-21] MEDS: sod bicarbonate 150mEq in D5W 1,150 ML IV SCH ×2 (06:32→06:33)
[2018-06-21] MEDS: albuterol 2.5 MG/3 ML nebule NEB SCH ×4 (07:31→21:38)
[2018-06-21] MEDS: heparin, porcine 5000 units/ml vial SQ SCH ×2 (08:00→19:21)
[2018-06-21] MEDS: K and/or MAG REPLACEMENT MC SCH (08:00)
[2018-06-21] MEDS: docusate sod 100mg capsule PO SCH ×2 (08:13→19:16)
[2018-06-21] MEDS: PARoxetine 20mg tablet PO SCH (08:13)
[2018-06-21] MEDS: pantoprazole 40mg Tablet.DR PO SCH ×2 (08:13→19:16)
[2018-06-21] MEDS: clonazePAM 0.5mg tablet PO SCH ×2 (08:13→19:16)
[2018-06-21] MEDS: aspirin 81mg tab.chew PO SCH (08:13)
[2018-06-21] MEDS: HYDROcodone/acetaminophen 10/325mg tab PO SCH (08:14)
[2018-06-21] MEDS: insulin Lispro (HumaLOG) vial - multi-dose SQ SCH ×3 (08:19→19:02)
[2018-06-21 09:00] LABS: MAGNESIUM 2.2 MG/DL (1.5-2.4)
[2018-06-21] MEDS: potassium Cl 20mEq in NS 1,000 ML IV SCH (16:44)
[2018-06-21] MEDS: HYDROcodone/acetaminophen 5mg/325mg tablet PO PRN (19:19)
[2018-06-21] MEDS: ondansetron/PF 4mg/2ml inj IV PRN (19:20)
[2018-06-21] MEDS: atorvastatin 10mg tablet PO SCH (21:40)
[2018-06-22] VITALS (7 sets, daily range): BP systolic 91–113; BP diastolic 51–72
[2018-06-22] MEDS: potassium Cl 20mEq in NS 1,000 ML IV SCH ×3 (00:10→21:07)
[2018-06-22] MEDS ORDERED: HYDROmorphone inj. 0.5 MG/0.5 ML DISP.SYRIN IV PRN (00:25)
[2018-06-22] MEDS ORDERED: HYDROmorphone 1 mg/ml syringe ONE (00:29)
[2018-06-22] MEDS: gabapentin 300mg capsule PO SCH ×3 (00:33→16:00)
[2018-06-22] MEDS ORDERED: acetaminophen 1,000mg/100ml IV 100 ML IV STA (01:51)
[2018-06-22] MEDS ORDERED: normal saline 1000ml 1,000 ML IVB ONE (01:51)
[2018-06-22] MEDS ORDERED: diphenhydrAMINE 50 mg/ml inj IM ONE (01:55)
[2018-06-22] MEDS ORDERED: HYDROmorphone 1 mg/ml syringe IV ONE (01:55)
[2018-06-22 02:14] LABS: BASOPHILS % (AUTO) 0.6 % (0-1); EOSINOPHILS # (AUTO) 0.1 X10'3 (0-0.9); EOSINOPHILS % (AUTO) 2.3 % (0-6); HEMOGLOBIN 11.7 g/dl (12.0-16.0); LYMPHOCYTES # (AUTO) 1.6 X10'3 (1.1-4.8); LYMPHOCYTES % (AUTO) 32.9 % (21-51); MEAN CORPUSCULAR HEMOGLOBIN 29.4 PG (27.0-31.0); MEAN CORPUSCULAR HGB CONC 33.4 % (33.0-36.5); MEAN CORPUSCULAR VOLUME 87.8 FL (78-98); MEAN PLATELET VOLUME 10.2 FL (7.4-10.4); MONOCYTES # (AUTO) 0.3 X10'3 (0-0.9); NEUTROPHILS # (AUTO) 2.8 X10'3 (1.8-7.7); NEUTROPHILS % (AUTO) 57.2 % (42-75); PLATELET COUNT 140 X10'3 (140-440); RED BLOOD COUNT 3.98 X10'6 (4.20-5.60); RED CELL DISTRIBUTION WIDTH 16.2 % (11.5-14.5); WHITE BLOOD COUNT 4.9 X10'3 (4.5-11.0)
[2018-06-22] MEDS ORDERED: diphenhydrAMINE 50 mg/ml inj IV ONE (02:25)
[2018-06-22 05:36] LABS: BASOPHILS % (AUTO) 0.5 % (0-1); EOSINOPHILS # (AUTO) 0.1 X10'3 (0-0.9); EOSINOPHILS % (AUTO) 2.2 % (0-6); HEMATOCRIT 33.8 % (35.0-45.0); HEMOGLOBIN 11.4 g/dl (12.0-16.0); LYMPHOCYTES # (AUTO) 1.7 X10'3 (1.1-4.8); LYMPHOCYTES % (AUTO) 34.4 % (21-51); MEAN CORPUSCULAR HEMOGLOBIN 29.5 PG (27.0-31.0); MEAN CORPUSCULAR HGB CONC 33.7 % (33.0-36.5); MEAN CORPUSCULAR VOLUME 87.6 FL (78-98); MEAN PLATELET VOLUME 9.9 FL (7.4-10.4); MONOCYTES # (AUTO) 0.4 X10'3 (0-0.9); MONOCYTES % (AUTO) 7.3 % (2-12); NEUTROPHILS # (AUTO) 2.7 X10'3 (1.8-7.7); NEUTROPHILS % (AUTO) 55.6 % (42-75); PLATELET COUNT 129 X10'3 (140-440); RED BLOOD COUNT 3.86 X10'6 (4.20-5.60); RED CELL DISTRIBUTION WIDTH 16.3 % (11.5-14.5); WHITE BLOOD COUNT 4.8 X10'3 (4.5-11.0)
[2018-06-22 06:02] LABS: ALANINE AMINOTRANSFERASE 39 U/L (12-78); ALBUMIN 2.5 G/DL (3.4-5.0); ALBUMIN/GLOBULIN RATIO 0.9 (1.1-1.5); ALKALINE PHOSPHATASE 77 IU/L (46-116); ANION GAP 7 (8-16); ASPARTATE AMINO TRANSFERASE 32 U/L (10-37); BILIRUBIN,TOTAL 0.3 MG/DL (0.1-1.0); BLOOD UREA NITROGEN 9 MG/DL (7-18); BUN/CREATININE RATIO 15.5 (6.6-38.0); CALCIUM 7.6 MG/DL (8.5-10.1); CHLORIDE 103 MMOL/L (99-107); CREATININE 0.58 MG/DL (0.40-0.90); GLUCOSE 305 MG/DL (70-104); LIPASE < 50 U/L (73-393); POTASSIUM 4.3 MMOL/L (3.5-5.1); SODIUM 134 MMOL/L (135-145); TOTAL CARBON DIOXIDE 24.2 MMOL/L (24-32); TOTAL PROTEIN 5.2 G/DL (6.4-8.2); eGFR > 90 ML/MIN
[2018-06-22] MEDS: albuterol 2.5 MG/3 ML nebule NEB SCH ×4 (07:32→19:19)
[2018-06-22] MEDS: heparin, porcine 5000 units/ml vial SQ SCH ×2 (08:00→20:58)
[2018-06-22] MEDS: K and/or MAG REPLACEMENT MC SCH (08:00)
[2018-06-22] MEDS: docusate sod 100mg capsule PO SCH ×2 (08:12→20:58)
[2018-06-22] MEDS: aspirin 81mg tab.chew PO SCH (08:13)
[2018-06-22] MEDS: HYDROcodone/acetaminophen 10/325mg tab PO SCH (08:13)
[2018-06-22] MEDS: pantoprazole 40mg Tablet.DR PO SCH ×2 (08:13→20:57)
[2018-06-22] MEDS: clonazePAM 0.5mg tablet PO SCH ×2 (08:14→20:57)
[2018-06-22] MEDS: PARoxetine 20mg tablet PO SCH (08:14)
[2018-06-22] MEDS: insulin Lispro (HumaLOG) vial - multi-dose SQ SCH ×2 (10:03→13:48)
[2018-06-22] MEDS: atorvastatin 10mg tablet PO SCH (20:57)
[2018-06-22] MEDS: ondansetron/PF 4mg/2ml inj IV PRN (21:08)
[2018-06-22] MEDS: morphine 2 MG/ML inj. syringe IV PRN (21:09)
[2018-06-23] MEDS: gabapentin 300mg capsule PO SCH ×3 (00:18→16:00)
[2018-06-23] MEDS: morphine 2 MG/ML inj. syringe IV PRN ×2 (01:15→05:26)
[2018-06-23 03:00] VITALS: BP 117/52
[2018-06-23 05:56] LABS: BASOPHILS % (AUTO) 0.4 % (0-1); EOSINOPHILS # (AUTO) 0.1 X10'3 (0-0.9); EOSINOPHILS % (AUTO) 2.6 % (0-6); HEMATOCRIT 32.2 % (35.0-45.0); HEMOGLOBIN 10.7 g/dl (12.0-16.0); LYMPHOCYTES # (AUTO) 1.5 X10'3 (1.1-4.8); LYMPHOCYTES % (AUTO) 29.6 % (21-51); MEAN CORPUSCULAR HEMOGLOBIN 29.1 PG (27.0-31.0); MEAN CORPUSCULAR HGB CONC 33.3 % (33.0-36.5); MEAN CORPUSCULAR VOLUME 87.4 FL (78-98); MEAN PLATELET VOLUME 10.3 FL (7.4-10.4); MONOCYTES # (AUTO) 0.3 X10'3 (0-0.9); MONOCYTES % (AUTO) 6.2 % (2-12); NEUTROPHILS # (AUTO) 3.1 X10'3 (1.8-7.7); NEUTROPHILS % (AUTO) 61.2 % (42-75); PLATELET COUNT 111 X10'3 (140-440); RED BLOOD COUNT 3.68 X10'6 (4.20-5.60); RED CELL DISTRIBUTION WIDTH 16.5 % (11.5-14.5); WHITE BLOOD COUNT 5.1 X10'3 (4.5-11.0)
[2018-06-23 06:00] VITALS: BP 107/45
[2018-06-23] MEDS: potassium Cl 20mEq in NS 1,000 ML IV SCH ×2 (06:10→16:10)
[2018-06-23 06:35] LABS: ALANINE AMINOTRANSFERASE 52 U/L (12-78); ALBUMIN 2.4 G/DL (3.4-5.0); ALBUMIN/GLOBULIN RATIO 0.9 (1.1-1.5); ALKALINE PHOSPHATASE 80 IU/L (46-116); ANION GAP 8 (8-16); ASPARTATE AMINO TRANSFERASE 48 U/L (10-37); BILIRUBIN,TOTAL 0.3 MG/DL (0.1-1.0); BLOOD UREA NITROGEN 12 MG/DL (7-18); BUN/CREATININE RATIO 17.4 (6.6-38.0); CALCIUM 7.8 MG/DL (8.5-10.1); CHLORIDE 102 MMOL/L (99-107); CREATININE 0.69 MG/DL (0.40-0.90); GLUCOSE 352 MG/DL (70-104); POTASSIUM 4.8 MMOL/L (3.5-5.1); SODIUM 135 MMOL/L (135-145); TOTAL CARBON DIOXIDE 24.8 MMOL/L (24-32); eGFR 90 ML/MIN
[2018-06-23] MEDS: albuterol 2.5 MG/3 ML nebule NEB SCH ×3 (07:28→14:49)
[2018-06-23] MEDS: clonazePAM 0.5mg tablet PO SCH (08:00)
[2018-06-23] MEDS: K and/or MAG REPLACEMENT MC SCH (08:00)
[2018-06-23] MEDS: pantoprazole 40mg Tablet.DR PO SCH (08:53)
[2018-06-23] MEDS: PARoxetine 20mg tablet PO SCH (08:53)
[2018-06-23] MEDS: docusate sod 100mg capsule PO SCH (08:53)
[2018-06-23] MEDS: aspirin 81mg tab.chew PO SCH (08:53)
[2018-06-23] MEDS: HYDROcodone/acetaminophen 10/325mg tab PO SCH (08:54)
[2018-06-23] MEDS: heparin, porcine 5000 units/ml vial SQ SCH (08:55)
[2018-06-23] MEDS: ondansetron/PF 4mg/2ml inj IV PRN (09:06)
[2018-06-23] MEDS: insulin Lispro (HumaLOG) vial - multi-dose SQ SCH ×2 (09:17→14:01)
[2018-06-23 11:00] VITALS: BP 99/60
== END 2018-06-23 18:15 | disposition home health service (06) | DRG 420 ==
LOC: ER 20:43 → ED HOLD 06-20 00:28 → EDBEDREQ 06-20 01:15 → PCU 3S 06-20 02:03
PROVIDERS: ADMIT Family Medicine; ATTEND Family Medicine
DX: E10.10 Type 1 diabetes mellitus with ketoacidosis without coma (principal); E87.4 Mixed disorder of acid-base balance; N17.9 Acute kidney failure, unspecified; I95.9 Hypotension, unspecified; E10.649 Type 1 diabetes mellitus with hypoglycemia without coma; E87.5 Hyperkalemia; I48.91 Unspecified atrial fibrillation; I50.9 Heart failure, unspecified; E87.1 Hypo-osmolality and hyponatremia; E86.0 Dehydration; E78.00 Pure hypercholesterolemia, unspecified; E86.1 Hypovolemia; F17.210 Nicotine dependence, cigarettes, uncomplicated; Z96.41 Presence of insulin pump (external) (internal); G89.29 Other chronic pain; F41.1 Generalized anxiety disorder; F32.9 Major depressive disorder, single episode, unspecified; M54.9 Dorsalgia, unspecified; J44.9 Chronic obstructive pulmonary disease, unspecified; K21.9 Gastro-esophageal reflux disease without esophagitis; K52.9 Noninfective gastroenteritis and colitis, unspecified; K59.00 Constipation, unspecified; Z79.4 Long term (current) use of insulin; Z85.41 Personal history of malignant neoplasm of cervix uteri; Z90.710 Acquired absence of both cervix and uterus; Z91.19 Patient's noncompliance with other medical treatment and regimen; Z88.1 Allergy status to other antibiotic agents; Z88.0 Allergy status to penicillin; Z88.2 Allergy status to sulfonamides; Z88.8 Allergy status to other drugs, medicaments and biological substances; Z90.49 Acquired absence of other specified parts of digestive tract; Z80.8 Family history of malignant neoplasm of other organs or systems; Z79.899 Other long term (current) drug therapy; Z79.82 Long term (current) use of aspirin
CPT/HCPCS: 36415; 36600; 71045; 71046; 74018; 80048; 80053; 80076; 80305; 81003; 82803; 82948; 83605; 83690; 83735; 83930; 84100; 84145; 84443; 84484; 84703; 85018; 85025; 87040; 87070; 93005; 94640; 94760; 96372; 97110; 97116; 97162; 97530; 99291; A6258; C1758; J0131; J1170; J1200; J1644; J1815; J2270; J2405; J2765; J7030

== ENCOUNTER 2018-10-27 01:35 | Inpatient (IN) | payer MEDICAID ==
[~2018-10-27] VITALS: Ht 167.6 cm; Wt 73.8 kg
[2018-10-27] VITALS (16 sets, daily range): BP systolic 82–108; BP diastolic 36–64
[~2018-10-27 01:35] MED LIST changes: +HYDR-4353 PO; -HYDR-565 PO
[2018-10-27] MEDS ORDERED: insulin regular, human 10 units/0.1 ml syringe IV ONE ×2 (01:50→03:00)
[2018-10-27] MEDS ORDERED: insulin regular, human 100 UNIT in normal saline 100ml IV soln 100 ML IV PRN ×2 (01:50)
[2018-10-27] MEDS ORDERED: normal saline 1000ML IV soln IVB ONE (01:50)
[2018-10-27] MEDS ORDERED: LORazepam 2 mg/ml vial IV ONE (02:15)
[2018-10-27 02:29] LABS: ALANINE AMINOTRANSFERASE 28 U/L (12-78); ALBUMIN 3.6 G/DL (3.4-5.0); ALKALINE PHOSPHATASE 121 IU/L (46-116); ASPARTATE AMINO TRANSFERASE 17 U/L (10-37); BILIRUBIN,TOTAL 0.5 MG/DL (0.1-1.0); BLOOD UREA NITROGEN 22 MG/DL (7-18); BUN/CREATININE RATIO 15.6 (6.6-38.0); CALCIUM 8.3 MG/DL (8.5-10.1); CHLORIDE 96 MMOL/L (99-107); CREATININE 1.41 MG/DL (0.40-0.90); ETHANOL < 0.010 GM/DL (0.0-0.010); MAGNESIUM 2.2 MG/DL (1.5-2.4); SODIUM 136 MMOL/L (135-145); TOTAL PROTEIN 7.3 G/DL (6.4-8.2); eGFR 39 ML/MIN
[2018-10-27 02:31] LABS: ANION GAP 35 (8-16)
[2018-10-27 02:32] LABS: TOTAL CARBON DIOXIDE < 5 MMOL/L (24-32)
[2018-10-27 02:33] LABS: GLUCOSE 745 MG/DL (70-104); POTASSIUM 6.1 MMOL/L (3.5-5.1)
--- NOTE | 2018-10-27 02:44 | NUR ---
EMS REPORTED PT HAD UNSANITARY AND UNSAFE LIVING CONDITIONS, UNSURE IF THEY FILED A CPS REPORT SO I FILED ONE, FAXED THE REPORT TO [facility] AND PLACED ORIGINAL ON THE CHART.
[2018-10-27 02:47] LABS: BASOPHILS % (AUTO) 0 % (0-1); EOSINOPHILS # (AUTO) 0.3 X10'3 (0-0.9); EOSINOPHILS % (AUTO) 1.6 % (0-6); HEMATOCRIT 46.3 % (35.0-45.0); HEMOGLOBIN 14.3 g/dl (12.0-16.0); LYMPHOCYTES # (AUTO) 0.9 X10'3 (1.1-4.8); LYMPHOCYTES % (AUTO) 4.7 % (21-51); MEAN CORPUSCULAR HGB CONC 30.9 % (33.0-36.5); MEAN CORPUSCULAR VOLUME 97.2 FL (78-98); MEAN PLATELET VOLUME 10.8 FL (7.4-10.4); MONOCYTES # (AUTO) 0.4 X10'3 (0-0.9); MONOCYTES % (AUTO) 1.8 % (2-12); NEUTROPHILS # (AUTO) 17.9 X10'3 (1.8-7.7); NEUTROPHILS % (AUTO) 91.9 % (42-75); PLATELET COUNT 325 X10'3 (140-440); RED BLOOD COUNT 4.77 X10'6 (4.20-5.60); RED CELL DISTRIBUTION WIDTH 16.1 % (11.5-14.5); WHITE BLOOD COUNT 19.5 X10'3 (4.5-11.0)
[2018-10-27 02:50] LABS: ABG BASE EXCESS -32.2 mmol/L (-2.0-3.0); ABG HCO3 1.9 mmol/L (22.0-26.0); ABG OXYGEN SATURATION 97.8 % (95-98); ABG PCO2 (T) 12.3 mmHg (32.0-45.0); ABG PH (T) 6.799 (7.350-7.450); ABG PO2 (T) 145.8 mmHg (83-108); FMetHb 0.4 % (0.3-1.12); FO2Hb 97.4 % (94-100); PATIENT TEMPERATURE 35.3; RESPIRATORY RATE (OBSERVED) 30 b/min; TOTAL HEMOGLOBIN 14.2 G/dl (12.0-16.0)
[2018-10-27] MEDS ORDERED: calcium chloride 100 MG/1 ML inj IV ONE (02:55)
[2018-10-27 03:05] LABS: LARGE PLATELETS FEW; PLATELET ESTIMATE NORMAL
[2018-10-27 03:30] LABS: CLARITY,URINE CLEAR (Clear); COLOR,URINE YELLOW (Yellow); GLUCOSE, URINE >=1000 mg/dl (Neg); KETONES,URINE >=80 mg/dl (Neg); LEUKOCYTE ESTERASE ,URINE NEGATIVE (Neg); NITRITES, URINE NEGATIVE (Neg); OCCULT BLOOD,URINE TRACE-INTACT (Neg); PH,URINE 5.5 (4.8-8.0); PROTEIN,URINE 30 mg/dl (Neg); UROBILINOGEN,URINE 0.2 E.U/dL (0.2-1.0)
[2018-10-27 03:36] LABS: UA COLLECTION TYPE FOLEY CATH; URINE AMPHETAMINE SCREEN NEGATIVE (Neg); URINE BARBITUATE SCREEN NEGATIVE (Neg); URINE BENZODIAZEPINES SCREEN NEGATIVE (Neg); URINE CANNABINOID SCREEN NEGATIVE (Neg); URINE COCAINE SCREEN NEGATIVE (Neg); URINE METHADONE SCREEN NEGATIVE (Neg); URINE OPIATE SCREEN NEGATIVE (Neg); URINE PHENCYCLIDINE SCREEN NEGATIVE (Neg)
[2018-10-27 03:37] LABS: SQUAMOUS EPITHELIAL CELL,UR MODERATE /LPF (FEW)
[2018-10-27 03:38] LABS: COARSE GRANULAR CAST 0-3 /LPF (NEGATIVE); RBC,URINE 0-2 /HPF (0-2); WBC,URINE 0-4 /HPF (0-4)
[2018-10-27 03:39] LABS: AMORPHOUS URATES 1+; BACTERIA,URINE FEW /HPF (Neg)
--- NOTE | 2018-10-27 03:46 | NUR ---
MD AWARE OF PATIENTS CRITICAL VALUES, PER MD PRICE DOES NOT WANT SODIUM BICARB ADMINISTERED AT THIS TIME.
[2018-10-27] MEDS ORDERED: sodium bicarbonate (8.4%) inj. 50 MEQ in dextrose 5% water 500ml 250 ML IV PRN (03:51)
[2018-10-27] MEDS ORDERED: sodium bicarbonate (8.4%) inj. 100 MEQ in dextrose 5% water 500ml 500 ML IV PRN (03:51)
[2018-10-27] MEDS ORDERED: potassium CL 20mEq in D5-1/2NS 1,000 ML IV PRN (03:51)
[2018-10-27] MEDS ORDERED: sodium phosphate inj. 30 MMOL in dextrose 5%-water 250 ML IV PRN (03:55)
[2018-10-27] MEDS ORDERED: acetaminophen 325mg tablet PO PRN ×2 (03:55)
[2018-10-27] MEDS ORDERED: potassium Cl 20 mEq SR tablet PO PRN (03:55)
[2018-10-27] MEDS ORDERED: Neutra Phos packet PO PRN ×2 (03:55)
[2018-10-27] MEDS ORDERED: ipratropium/albuterol 3ml nebule NEB PRN (03:55)
[2018-10-27] MEDS ORDERED: potassium Cl 40MEQ/NS 500ml 500 ML IV PRN ×2 (03:55)
[2018-10-27] MEDS ORDERED: magnesium 2GM in 50ml NS 50 ML IV PRN (03:55)
[2018-10-27] MEDS ORDERED: insulin regular, human vial - multi-dose IV PRN (03:55)
[2018-10-27] MEDS ORDERED: sodium phosphate inj. 15 MMOL in dextrose 5%-water 150 ML IV PRN (03:55)
[2018-10-27] MEDS: K, MAG and/or Phos replacement - Verify level? MC SCH ×2 (03:55→08:00)
[2018-10-27] MEDS ORDERED: magnesium Cl slow-release 64mg tablet PO PRN (03:55)
[2018-10-27] MEDS ORDERED: magnesium 4gm in 100ml NS 100 ML IV PRN (03:55)
[2018-10-27] MEDS ORDERED: acetaminophen 650mg rectal suppository RC PRN (03:55)
[2018-10-27] MEDS ORDERED: sodium bicarbonate (8.4%) inj. 100 MEQ in dextrose 5% water 500ml 500 ML IV ONE (04:15)
[2018-10-27] MEDS: normal saline 1000ml 1,000 ML IV SCH ×6 (04:22→23:51)
[2018-10-27] MEDS: insulin regular, DKA only 100 UNIT in normal saline 100ml IV soln 99 ML IV SCH ×4 (04:23→23:25)
[2018-10-27 04:48] LABS: PARTIAL THROMBOPLASTIN TIME 31 SECONDS (22-32); PROTHROMBIN TIME 9.7 SECONDS (9.0-12.0)
--- NOTE | 2018-10-27 06:22 | NUR ---
ATTEMPTED TO CALL REPORT. RN NOT ABLE TO TAKE REPORT WILL CALL BACK WITH ABLE
[2018-10-27 07:40] LABS: ABG HCO3 9.7 mmol/L (22.0-26.0); ABG OXYGEN SATURATION 97.6 % (95-98); ABG PCO2 (T) 21.3 mmHg (32.0-45.0); ABG PH (T) 7.277 (7.350-7.450); ABG PO2 (T) 89.9 mmHg (83-108); ALLEN'S TEST Positive; FCOHb 0.3 % (0.5-1.5); FMetHb 0.2 % (0.3-1.12); FO2Hb 97.1 % (94-100); TOTAL HEMOGLOBIN 13.1 G/dl (12.0-16.0)
[2018-10-27] MEDS: K and/or MAG REPLACEMENT MC SCH (08:00)
[2018-10-27] MEDS: pantoprazole 40 MG vial IV SCH (08:13)
[2018-10-27] MEDS: heparin, porcine 5000 units/ml vial SQ SCH ×2 (08:14→21:03)
[2018-10-27] MEDS ORDERED: sodium bicarbonate (8.4%) inj. 150 MEQ in normal saline 1000ml 900 ML IV SCH (08:25)
[2018-10-27] MEDS: dextrose 5%-normal saline 1,000 ML IV SCH (08:35)
[2018-10-27 09:31] LABS: ALANINE AMINOTRANSFERASE 29 U/L (12-78); ALBUMIN 2.9 G/DL (3.4-5.0); ALBUMIN/GLOBULIN RATIO 0.9 (1.1-1.5); ALKALINE PHOSPHATASE 93 IU/L (46-116); ANION GAP 19 (8-16); ASPARTATE AMINO TRANSFERASE 23 U/L (10-37); BILIRUBIN,TOTAL 0.4 MG/DL (0.1-1.0); BLOOD UREA NITROGEN 18 MG/DL (7-18); BUN/CREATININE RATIO 15.4 (6.6-38.0); CALCIUM 8.4 MG/DL (8.5-10.1); CHLORIDE 110 MMOL/L (99-107); CREATININE 1.17 MG/DL (0.40-0.90); POTASSIUM 4.1 MMOL/L (3.5-5.1); SODIUM 145 MMOL/L (135-145); TOTAL CARBON DIOXIDE 16.3 MMOL/L (24-32); eGFR 49 ML/MIN
--- NOTE | 2018-10-27 09:35 | NUR ---
Awaiting Kenya From pharmacy
[2018-10-27 10:02] LABS: GLUCOSE 179 MG/DL (70-104)
[2018-10-27] MEDS: sodium bicarbonate (8.4%) inj. 150 MEQ in sodium chloride 0.45% 1,000 ML IV SCH ×2 (10:03→21:15)
[2018-10-27 10:19] LABS: ALBUMIN 2.9 G/DL (3.4-5.0); ANION GAP 18 (8-16); BLOOD UREA NITROGEN 18 MG/DL (7-18); CALCIUM 8.6 MG/DL (8.5-10.1); CHLORIDE 111 MMOL/L (99-107); GLUCOSE 179 MG/DL (70-104); PHOSPHORUS 2.3 MG/DL (2.3-4.5); POTASSIUM 4.1 MMOL/L (3.5-5.1); SODIUM 145 MMOL/L (135-145); TOTAL CARBON DIOXIDE 16.3 MMOL/L (24-32); eGFR 48 ML/MIN
[2018-10-27] MEDS ORDERED: ondansetron 4mg rapidly disintigrating tab PO PRN (10:30)
[2018-10-27] MEDS ORDERED: DEXTROSE 10 % AND 0.45 % NACL 1,000 ML IV SCH (11:20)
[2018-10-27] MEDS ORDERED: DEXTROSE 10 % AND 0.45 % NACL 1,000 ML IV ONE (11:36)
[2018-10-27] MEDS: Potassium Cl inj 20 MEQ in DEXTROSE 10 % AND 0.45 % NACL 990 ML IV SCH ×2 (12:19→21:45)
[2018-10-27] MEDS: albuterol 2.5 MG/3 ML nebule NEB SCH ×3 (13:00→21:17)
[2018-10-27] MEDS: gabapentin 300mg capsule PO SCH ×2 (13:00→21:03)
[2018-10-27 13:30] LABS: ABG BASE EXCESS -2.5 mmol/L (-2.0-3.0); ABG HCO3 20.9 mmol/L (22.0-26.0); ABG OXYGEN SATURATION 97.5 % (95-98); ABG PCO2 (T) 31.9 mmHg (32.0-45.0); ABG PH (T) 7.434 (7.350-7.450); ALLEN'S TEST Positive; FCOHb 0.3 % (0.5-1.5); FMetHb 0.2 % (0.3-1.12); TOTAL HEMOGLOBIN 12.2 G/dl (12.0-16.0)
[2018-10-27 13:46] LABS: MAGNESIUM 1.5 MG/DL (1.5-2.4); PHOSPHORUS 2.4 MG/DL (2.3-4.5)
--- NOTE | 2018-10-27 15:31 | NUR ---
DKA: Patient admitted again with DKA. NPO per MD while anion gap is elevated and being treated for DKA. A1C is 10, blood glucose ranging from 108 to over 600 on admission. Strong history of non compliance and limited understand of insulin pump that was placed last March. Patient has been seen by RDs on previous visits. Per clinical care leader patient was set up with [facility] and has not returned phone calls or gone to appointments, d/w RN and social work program coordinator consult is pending. Noted that patient has no teeth and possible difficulty chewing when diet is advanced, may need soft diet. Recommend: 1. Advance diet as medically indicated when OK by MD to mechanical soft, carb controlled 2. Provide nutrition education on diabetes 3. Weight per rx Addendum: 10/27/18 at [address] Amended: Links added.
[2018-10-27 15:55] LABS: ALANINE AMINOTRANSFERASE 25 U/L (12-78); ALBUMIN 2.6 G/DL (3.4-5.0); ALKALINE PHOSPHATASE 80 IU/L (46-116); ANION GAP 9 (8-16); ASPARTATE AMINO TRANSFERASE 17 U/L (10-37); BILIRUBIN,TOTAL 0.2 MG/DL (0.1-1.0); BLOOD UREA NITROGEN 13 MG/DL (7-18); BUN/CREATININE RATIO 13.8 (6.6-38.0); CALCIUM 7.8 MG/DL (8.5-10.1); CHLORIDE 113 MMOL/L (99-107); CREATININE 0.94 MG/DL (0.40-0.90); GLUCOSE 133 MG/DL (70-104); MAGNESIUM 1.4 MG/DL (1.5-2.4); POTASSIUM 3.3 MMOL/L (3.5-5.1); SODIUM 146 MMOL/L (135-145); TOTAL CARBON DIOXIDE 24.2 MMOL/L (24-32); TOTAL PROTEIN 5.3 G/DL (6.4-8.2); eGFR 63 ML/MIN
[2018-10-27] MEDS ORDERED: potassium phosphate inj 15 MMOL in dextrose 5%-water 150 ML IV ONE (16:35)
--- NOTE | 2018-10-27 17:01 | NUR ---
Insulin and D10 gtts turned off now per CCMD's order. RN reminded MD that the DKA protocol states to not shut off gtts until one hour after the pt is eating and sq insulin has been administered; CCMD restated that he wanted the insulin and D10 off now r/t the anion gap at 9 and C02 24.2. Charge Nurse made aware of MD's orders. Gtts off, will continue to closely monitor BS. Carb controlled diet ordered and hyper/ hypoglycemia protocol ordered per MD request.
[2018-10-27] MEDS ORDERED: MESSAGE TO PHARMACY PO ONE (17:10)
[2018-10-27] MEDS ORDERED: glucagon, human recombinant 1mg kit SUBCUT PRN (17:10)
[2018-10-27] MEDS ORDERED: dextrose 50%-water 50ml dispensing syringe IV PRN ×2 (17:10)
[2018-10-27] MEDS ORDERED: dextrose ORAL solution 15 GM/59 ML bottle PO PRN (17:10)
--- NOTE | 2018-10-27 18:10 | NUR ---
Still waiting on [facility]; pharmacy called.
--- NOTE | 2018-10-27 18:17 | NUR ---
Report given to lieutenant shift supervisor RN. Pt stable at this time.
--- NOTE | 2018-10-27 18:25 | NUR ---
Problems reprioritized. Patient report given, questions answered & plan of care reviewed with Magaly AGUIRRE.
[2018-10-27] MEDS: HYDROcodone/acetaminophen 10/325mg tab PO PRN (19:16)
[2018-10-27] MEDS: insulin Lispro (HumaLOG) vial - multi-dose SQ SCH ×2 (19:53→22:40)
[2018-10-27] MEDS: ondansetron/PF 4mg/2ml inj IV PRN (21:02)
[2018-10-27] MEDS: atorvastatin 10mg tablet PO SCH (21:03)
[2018-10-27] MEDS: budesonide 0.5mg/2ml UD nebule IH SCH (21:17)
[2018-10-27] MEDS ORDERED: proCHLORperazine 10 MG/2 ml inj IV ONE (21:40)
--- NOTE | 2018-10-27 22:50 | NUR ---
report given to Kevin AGUIRRE
--- NOTE | 2018-10-27 23:00 | NUR ---
Patient in room ICU 2045. I have received report from Jade AGUIRRE and had the opportunity to ask questions and assume patient care.
[2018-10-27] MEDS: insulin glargine (Lantus) pen - multi-dose SQ SCH (23:54)
[2018-10-28] VITALS (17 sets, daily range): BP systolic 80–115; BP diastolic 41–74
--- NOTE | 2018-10-28 | NUR ---
patient awoke at 2345 and her bed was wet, it was unclear it if was from sweat or from her spilling ice or something in the bed. BS was assessed just to be safe. it was 314. Lantus was given at this time per order by October [employer]. continue to monitor.
[2018-10-28] MEDS: normal saline 1000ml 1,000 ML IV SCH (03:51)
[2018-10-28] MEDS: dextrose 5%-normal saline 1,000 ML IV SCH (03:55)
[2018-10-28 04:12] LABS: ALANINE AMINOTRANSFERASE 27 U/L (12-78); ALBUMIN 2.8 G/DL (3.4-5.0); ALBUMIN/GLOBULIN RATIO 0.8 (1.1-1.5); ALKALINE PHOSPHATASE 71 IU/L (46-116); ANION GAP 13 (8-16); ASPARTATE AMINO TRANSFERASE 20 U/L (10-37); BILIRUBIN,TOTAL 0.6 MG/DL (0.1-1.0); BLOOD UREA NITROGEN 16 MG/DL (7-18); BUN/CREATININE RATIO 14.3 (6.6-38.0); CALCIUM 8.5 MG/DL (8.5-10.1); CHLORIDE 104 MMOL/L (99-107); CREATININE 1.12 MG/DL (0.40-0.90); GLUCOSE 92 MG/DL (70-104); MAGNESIUM 1.8 MG/DL (1.5-2.4); PHOSPHORUS 4.4 MG/DL (2.3-4.5); POTASSIUM 3.9 MMOL/L (3.5-5.1); SODIUM 139 MMOL/L (135-145); TOTAL CARBON DIOXIDE 22.3 MMOL/L (24-32); TOTAL PROTEIN 6.4 G/DL (6.4-8.2); eGFR 51 ML/MIN
[2018-10-28] MEDS: HYDROcodone/acetaminophen 10/325mg tab PO PRN ×2 (05:41→16:33)
--- NOTE | 2018-10-28 06:43 | NUR ---
Problems reprioritized. Patient report given, questions answered & plan of care reviewed with Abhi RN.
--- NOTE | 2018-10-28 07:19 | NUR ---
per medical doctor md lab redraw of CBC d/t clotted specimen. adding on repeat BMP this am to verify BMP was not clotted as well
[2018-10-28] MEDS: Potassium Cl inj 20 MEQ in DEXTROSE 10 % AND 0.45 % NACL 990 ML IV SCH (07:45)
[2018-10-28] MEDS: pantoprazole 40 MG vial IV SCH (07:48)
[2018-10-28] MEDS: aspirin 81mg tablet.DR PO SCH (07:48)
[2018-10-28] MEDS: PARoxetine 20mg tablet PO SCH (07:49)
[2018-10-28] MEDS: gabapentin 300mg capsule PO SCH ×3 (07:49→22:08)
[2018-10-28] MEDS: heparin, porcine 5000 units/ml vial SQ SCH ×2 (07:49→19:16)
[2018-10-28 07:53] LABS: GLUCOSE 278 MG/DL (70-104); POTASSIUM 3.4 MMOL/L (3.5-5.1); SODIUM 140 MMOL/L (135-145)
[2018-10-28 07:54] LABS: ALBUMIN 2.6 G/DL (3.4-5.0); ANION GAP 12 (8-16); BLOOD UREA NITROGEN 10 MG/DL (7-18); CALCIUM 7.7 MG/DL (8.5-10.1); CHLORIDE 104 MMOL/L (99-107); CREATININE 0.91 MG/DL (0.40-0.90); TOTAL CARBON DIOXIDE 23.6 MMOL/L (24-32); eGFR 65 ML/MIN
[2018-10-28] MEDS: K and/or MAG REPLACEMENT MC SCH (08:00)
[2018-10-28] MEDS: K, MAG and/or Phos replacement - Verify level? MC SCH (08:00)
[2018-10-28 08:04] LABS: BASOPHILS % (AUTO) 0.3 % (0-1); EOSINOPHILS # (AUTO) 0.1 X10'3 (0-0.9); EOSINOPHILS % (AUTO) 1.4 % (0-6); HEMATOCRIT 35.4 % (35.0-45.0); HEMOGLOBIN 11.7 g/dl (12.0-16.0); LYMPHOCYTES # (AUTO) 2.1 X10'3 (1.1-4.8); LYMPHOCYTES % (AUTO) 29.1 % (21-51); MEAN CORPUSCULAR HEMOGLOBIN 29.7 PG (27.0-31.0); MEAN CORPUSCULAR HGB CONC 32.9 % (33.0-36.5); MEAN PLATELET VOLUME 9.4 FL (7.4-10.4); MONOCYTES # (AUTO) 0.4 X10'3 (0-0.9); MONOCYTES % (AUTO) 5.2 % (2-12); NEUTROPHILS # (AUTO) 4.7 X10'3 (1.8-7.7); RED BLOOD COUNT 3.93 X10'6 (4.20-5.60); WHITE BLOOD COUNT 7.3 X10'3 (4.5-11.0)
[2018-10-28 08:07] LABS: PLATELET COUNT 153 X10'3 (140-440)
[2018-10-28] MEDS: budesonide 0.5mg/2ml UD nebule IH SCH ×2 (09:16→19:55)
[2018-10-28] MEDS: albuterol 2.5 MG/3 ML nebule NEB SCH ×4 (09:16→19:55)
[2018-10-28] MEDS: insulin Lispro (HumaLOG) vial - multi-dose SQ SCH ×3 (09:17→19:19)
[2018-10-28] MEDS: diazepam 5mg tablet PO PRN (13:17)
[2018-10-28] MEDS: potassium Cl 20 mEq SR tablet PO PRN ×3 (13:21→22:12)
--- NOTE | 2018-10-28 13:28 | NUR ---
pt given 20 mEq of potassium PO for K of 3.4. Pt to receive 2 more doses of 20 mEq q4hrs
--- NOTE | 2018-10-28 18:34 | NUR ---
gave report to ivan morse
[2018-10-28] MEDS: ondansetron/PF 4mg/2ml inj IV PRN (19:15)
[2018-10-28] MEDS: atorvastatin 10mg tablet PO SCH (22:08)
[2018-10-28] MEDS: insulin glargine (Lantus) pen - multi-dose SQ SCH (22:19)
[2018-10-29] VITALS: BP 94/54
[2018-10-29] MEDS: HYDROcodone/acetaminophen 10/325mg tab PO PRN ×3 (00:13→20:01)
[2018-10-29] MEDS ORDERED: bisacodyl 10mg suppository rectal RC PRN (03:55)
[2018-10-29] MEDS: diazepam 5mg tablet PO PRN ×2 (04:11→12:50)
[2018-10-29 05:31] LABS: BASOPHILS % (AUTO) 0.6 % (0-1); EOSINOPHILS # (AUTO) 0.1 X10'3 (0-0.9); EOSINOPHILS % (AUTO) 2.4 % (0-6); HEMATOCRIT 32.4 % (35.0-45.0); HEMOGLOBIN 10.7 g/dl (12.0-16.0); LYMPHOCYTES # (AUTO) 1.9 X10'3 (1.1-4.8); LYMPHOCYTES % (AUTO) 33.9 % (21-51); MEAN CORPUSCULAR HEMOGLOBIN 29.7 PG (27.0-31.0); MEAN CORPUSCULAR VOLUME 90.1 FL (78-98); MEAN PLATELET VOLUME 9.4 FL (7.4-10.4); MONOCYTES # (AUTO) 0.3 X10'3 (0-0.9); MONOCYTES % (AUTO) 6.3 % (2-12); NEUTROPHILS # (AUTO) 3.2 X10'3 (1.8-7.7); NEUTROPHILS % (AUTO) 56.8 % (42-75); PLATELET COUNT 130 X10'3 (140-440); RED BLOOD COUNT 3.59 X10'6 (4.20-5.60); RED CELL DISTRIBUTION WIDTH 15.1 % (11.5-14.5); WHITE BLOOD COUNT 5.6 X10'3 (4.5-11.0)
[2018-10-29 06:06] LABS: ALANINE AMINOTRANSFERASE 27 U/L (12-78); ALBUMIN 2.4 G/DL (3.4-5.0); ALBUMIN/GLOBULIN RATIO 0.9 (1.1-1.5); ALKALINE PHOSPHATASE 82 IU/L (46-116); ANION GAP 9 (8-16); ASPARTATE AMINO TRANSFERASE 22 U/L (10-37); BILIRUBIN,TOTAL 0.2 MG/DL (0.1-1.0); BLOOD UREA NITROGEN 10 MG/DL (7-18); BUN/CREATININE RATIO 15.4 (6.6-38.0); CALCIUM 7.7 MG/DL (8.5-10.1); CHLORIDE 104 MMOL/L (99-107); CREATININE 0.65 MG/DL (0.40-0.90); GLUCOSE 267 MG/DL (70-104); MAGNESIUM 1.5 MG/DL (1.5-2.4); PHOSPHORUS 3.2 MG/DL (2.3-4.5); POTASSIUM 4.4 MMOL/L (3.5-5.1); SODIUM 138 MMOL/L (135-145); TOTAL CARBON DIOXIDE 25.2 MMOL/L (24-32); TOTAL PROTEIN 5.2 G/DL (6.4-8.2); eGFR > 90 ML/MIN
--- NOTE | 2018-10-29 06:36 | NUR ---
Problems reprioritized. Patient report given, questions answered & plan of care reviewed with Brunilda AGUIRRE. Addendum: 10/29/18 at 0637 by Amber Meza RN Amended: Links added.
[2018-10-29 07:43] VITALS: BP 93/59
[2018-10-29] MEDS: K and/or MAG REPLACEMENT MC SCH (07:53)
[2018-10-29] MEDS: aspirin 81mg tablet.DR PO SCH (07:56)
[2018-10-29] MEDS: PARoxetine 20mg tablet PO SCH (07:57)
[2018-10-29] MEDS: gabapentin 300mg capsule PO SCH ×3 (07:57→20:00)
[2018-10-29] MEDS: heparin, porcine 5000 units/ml vial SQ SCH ×2 (07:57→19:59)
[2018-10-29] MEDS: K, MAG and/or Phos replacement - Verify level? MC SCH (08:00)
[2018-10-29] MEDS: albuterol 2.5 MG/3 ML nebule NEB SCH ×4 (08:30→19:20)
[2018-10-29] MEDS: budesonide 0.5mg/2ml UD nebule IH SCH ×2 (08:30→19:20)
[2018-10-29] MEDS: insulin Lispro (HumaLOG) vial - multi-dose SQ SCH ×2 (09:23→19:00)
[2018-10-29 11:00] VITALS: BP 98/60
[2018-10-29] MEDS ORDERED: lactulose 20gm/30ml cup PO ONE (12:00)
[2018-10-29] MEDS: docusate sod 100mg capsule PO SCH ×2 (12:14→19:59)
[2018-10-29] MEDS: dextrose ORAL solution 15 GM/59 ML bottle PO PRN ×2 (12:20→12:42)
[2018-10-29] MEDS ORDERED: methylnaltrexone br 12mg/0.6ml inj***SubQ only SQ ONE (14:25)
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
--- NOTE | 2018-10-29 18:24 | NUR ---
Problems reprioritized. Patient report given, questions answered & plan of care reviewed with sara morse.
[2018-10-29 18:30] VITALS: BP 105/68
[2018-10-29] MEDS: atorvastatin 10mg tablet PO SCH (20:00)
[2018-10-29] MEDS ORDERED: insulin glargine (Lantus) pen - multi-dose SQ ONE (21:15)
[2018-10-30] VITALS: BP 101/64
[2018-10-30] MEDS: HYDROcodone/acetaminophen 10/325mg tab PO PRN (05:45)
--- NOTE | 2018-10-30 06:14 | NUR ---
Problems reprioritized. Patient report given, questions answered & plan of care reviewed with MICHAEL. Addendum: 10/30/18 at 0614 by Dave Nails RN Amended: Links added.
--- NOTE | 2018-10-30 06:25 | NUR ---
Patient in room TIFFANY 347. I have received report from Edward AGUIRRE and had the opportunity to ask questions and assume patient care.
[2018-10-30 07:00] VITALS: BP 98/64
[2018-10-30] MEDS: gabapentin 300mg capsule PO SCH ×2 (07:18→13:46)
[2018-10-30] MEDS: PARoxetine 20mg tablet PO SCH (07:18)
[2018-10-30] MEDS: aspirin 81mg tablet.DR PO SCH (07:18)
[2018-10-30] MEDS: heparin, porcine 5000 units/ml vial SQ SCH (07:19)
[2018-10-30] MEDS: docusate sod 100mg capsule PO SCH (07:19)
[2018-10-30] MEDS: K and/or MAG REPLACEMENT MC SCH (08:00)
[2018-10-30] MEDS: K, MAG and/or Phos replacement - Verify level? MC SCH (08:00)
[2018-10-30] MEDS: budesonide 0.5mg/2ml UD nebule IH SCH (08:28)
[2018-10-30] MEDS: albuterol 2.5 MG/3 ML nebule NEB SCH ×3 (08:28→17:00)
[2018-10-30] MEDS: insulin Lispro (HumaLOG) vial - multi-dose SQ SCH ×2 (08:33→13:50)
--- NOTE | 2018-10-30 08:59 | NUR ---
Peripheral IV catheter on the right external jugular vein removed per patient's request . Pressure dressing applied, tolerated well. She was complaining of the site being sore. A new peripheral IV catheter g20 inserted in the right hand.
[2018-10-30 11:00] VITALS: BP 117/68
[2018-10-30 13:05] LABS: BASOPHILS % (AUTO) 0.6 % (0-1); EOSINOPHILS # (AUTO) 0.1 X10'3 (0-0.9); EOSINOPHILS % (AUTO) 2.6 % (0-6); HEMOGLOBIN 12.1 g/dl (12.0-16.0); LYMPHOCYTES % (AUTO) 21.7 % (21-51); MEAN CORPUSCULAR HEMOGLOBIN 29.3 PG (27.0-31.0); MEAN CORPUSCULAR HGB CONC 32.6 % (33.0-36.5); MEAN CORPUSCULAR VOLUME 89.7 FL (78-98); MEAN PLATELET VOLUME 9.4 FL (7.4-10.4); MONOCYTES # (AUTO) 0.3 X10'3 (0-0.9); MONOCYTES % (AUTO) 5.9 % (2-12); NEUTROPHILS # (AUTO) 3.1 X10'3 (1.8-7.7); NEUTROPHILS % (AUTO) 69.2 % (42-75); PLATELET COUNT 148 X10'3 (140-440); RED BLOOD COUNT 4.13 X10'6 (4.20-5.60); RED CELL DISTRIBUTION WIDTH 14.5 % (11.5-14.5); WHITE BLOOD COUNT 4.5 X10'3 (4.5-11.0)
[2018-10-30 13:28] LABS: ALANINE AMINOTRANSFERASE 58 U/L (12-78); ALBUMIN 2.7 G/DL (3.4-5.0); ALBUMIN/GLOBULIN RATIO 0.8 (1.1-1.5); ALKALINE PHOSPHATASE 126 IU/L (46-116); ANION GAP 7 (8-16); ASPARTATE AMINO TRANSFERASE 133 U/L (10-37); BILIRUBIN,TOTAL 0.3 MG/DL (0.1-1.0); BLOOD UREA NITROGEN 12 MG/DL (7-18); BUN/CREATININE RATIO 23.1 (6.6-38.0); CALCIUM 8.5 MG/DL (8.5-10.1); CHLORIDE 99 MMOL/L (99-107); CREATININE 0.52 MG/DL (0.40-0.90); GLUCOSE 116 MG/DL (70-104); MAGNESIUM 1.7 MG/DL (1.5-2.4); POTASSIUM 4.3 MMOL/L (3.5-5.1); SODIUM 138 MMOL/L (135-145); eGFR > 90 ML/MIN
[2018-10-30] MEDS ORDERED: GLUC1KIT2 SUBCUT (13:28)
[2018-10-30] MEDS ORDERED: SYRI-641 SQ (14:03)
--- NOTE | 2018-10-30 15:48 | NUR ---
Patient was instructed to make an appointment with her PCP tomorrow as per Dr. Portillo's order. Patient stated that she called her PCP and that she was given appointment schedule of Tuesday11/01/18. Awaiting for patient's new prescription filled by [facility] pharmacy at bedside
--- NOTE | 2018-10-30 16:08 | NUR ---
Discharge instructions given to patient and she verbalized understanding of all instructions made. Diabetes Survival Skills printed handout given to her, encouraged her to attend the class. Patient confirmed to me that she already have humalog insulin at home, glucometer, lancets, and strips. She said she only needed insulin syringe. New prescription Glucagon and insulin syringes to be filled and delivered at bedside by [facility] pharmacy. Patient's own meds stored at hospital's pharmacy given to patient. A1C level of 10 relayed to patient. Peripheral IV catheter removed, tip intact.
--- NOTE | 2018-10-30 17:24 | NUR ---
Patient just left, patient accompanied by JUAN Espitia to the lobby via wheelchair. Patient's son waiting
[2018-10-31] MEDS ORDERED: methylnaltrexone br 12mg/0.6ml inj***SubQ only SQ SCH (08:00)
== END 2018-10-30 17:28 | disposition home or self-care (01) | DRG 420 ==
LOC: ER 01:36 → ED HOLD 03:51 → CICU 2S 07:40 → ICU 2S 22:49 → SUR 3N 10-28 14:19
PROVIDERS: ADMIT Internal Medicine Critical Care Medicine; ATTEND Internal Medicine Critical Care Medicine
DX: E10.10 Type 1 diabetes mellitus with ketoacidosis without coma (principal); I50.9 Heart failure, unspecified; F03.90 Unspecified dementia, unspecified severity, without behavioral disturbance, psychotic disturbance, mood disturbance, and anxiety; I11.0 Hypertensive heart disease with heart failure; I48.91 Unspecified atrial fibrillation; E86.0 Dehydration; E78.00 Pure hypercholesterolemia, unspecified; D72.829 Elevated white blood cell count, unspecified; F41.9 Anxiety disorder, unspecified; K21.9 Gastro-esophageal reflux disease without esophagitis; M54.9 Dorsalgia, unspecified; G89.29 Other chronic pain; J45.909 Unspecified asthma, uncomplicated; Z88.0 Allergy status to penicillin; Z88.1 Allergy status to other antibiotic agents; Z88.8 Allergy status to other drugs, medicaments and biological substances; Z85.41 Personal history of malignant neoplasm of cervix uteri; Z90.49 Acquired absence of other specified parts of digestive tract; Z90.710 Acquired absence of both cervix and uterus; Z80.8 Family history of malignant neoplasm of other organs or systems; Z79.4 Long term (current) use of insulin; Z85.841 Personal history of malignant neoplasm of brain; Z91.19 Patient's noncompliance with other medical treatment and regimen
CPT/HCPCS: 36415; 36600; 70450; 71045; 74018; 80048; 80053; 80305; 80320; 81001; 82803; 82948; 83036; 83605; 83735; 84100; 84145; 84484; 85018; 85025; 85610; 85730; 87040; 87070; 93005; 94640; 94760; 96374; 96375; 96376; 97116; 97162; 97530; 99291; C9113; G0378; J0780; J1644; J1815; J2060; J2405; J3480; J7030; J7042; J7060; J7626

== ENCOUNTER → 2018-11-30 | Emergency (ER) | payer MEDICAID ==
[~2018-11-30] VITALS: Ht 170.2 cm; Wt 63.6 kg
[~2018-11-30] MED LIST changes: +GLUC1KIT2 SUBCUT; -INSU100V11 SQ; -LISI2.5T89 PO; +METO-292 PO; -MORP-64 PO; -OMEP20TA5 PO; +ONDA8TAB13 PO; +PHE25R PR; +SYRI-641 SQ; +acetaminophen 325mg tablet PO ONE; +dextrose 5%-normal saline 1,000 ML IV ONE; +diphenhydrAMINE 50 mg/ml inj IV ONE; +fentaNYL/PF 50MCG/1 ML 2ML syringe IV ONE; +insulin regular, human 10 units/0.1 ml syringe IV ONE; +metoclopramide 5 mg/ml inj IV ONE; +morphine 4 MG/ML inj SYRINge IV ONE; +normal saline 1000ml 1,000 ML IV ONE; +ondansetron/PF 4mg/2ml inj IV ONE; +proCHLORperazine 10 MG/2 ml inj IV ONE
[2018-11-30 11:52] LABS: URINE HCG NEGATIVE (NEG)
[2018-11-30 11:58] LABS: CLARITY,URINE CLOUDY (Clear); COLOR,URINE YELLOW (Yellow); GLUCOSE, URINE 500 mg/dl (Neg); KETONES,URINE 40 mg/dl (Neg); LEUKOCYTE ESTERASE ,URINE NEGATIVE (Neg); NITRITES, URINE NEGATIVE (Neg); OCCULT BLOOD,URINE NEGATIVE (Neg); PH,URINE 5.5 (4.8-8.0); PROTEIN,URINE 30 mg/dl (Neg); UROBILINOGEN,URINE 0.2 E.U/dL (0.2-1.0)
[2018-11-30 12:05] LABS: BASOPHILS # (AUTO) 0.1 X10'3 (0-0.2); BASOPHILS % (AUTO) 0.9 % (0-1); EOSINOPHILS # (AUTO) 0.2 X10'3 (0-0.9); EOSINOPHILS % (AUTO) 2.9 % (0-6); HEMATOCRIT 48.3 % (35.0-45.0); HEMOGLOBIN 15.8 g/dl (12.0-16.0); LYMPHOCYTES # (AUTO) 2.5 X10'3 (1.1-4.8); LYMPHOCYTES % (AUTO) 32.6 % (21-51); MEAN CORPUSCULAR HEMOGLOBIN 29.3 PG (27.0-31.0); MEAN CORPUSCULAR HGB CONC 32.7 g/dL (33.0-36.5); MEAN CORPUSCULAR VOLUME 89.4 FL (78-98); MEAN PLATELET VOLUME 10.3 FL (7.4-10.4); MONOCYTES # (AUTO) 0.3 X10'3 (0-0.9); MONOCYTES % (AUTO) 3.5 % (2-12); NEUTROPHILS # (AUTO) 4.5 X10'3 (1.8-7.7); NEUTROPHILS % (AUTO) 60.1 % (42-75); PLATELET COUNT 225 X10'3 (140-440); RED BLOOD COUNT 5.41 X10'6 (4.20-5.60); RED CELL DISTRIBUTION WIDTH 14.5 % (11.5-14.5); WHITE BLOOD COUNT 7.5 X10'3 (4.5-11.0)
[2018-11-30 12:13] LABS: INR 0.9 INR; PROTHROMBIN TIME 9.5 SECONDS (9.0-12.0)
[2018-11-30 12:18] LABS: UA COLLECTION TYPE CLN CATCH MIDSTREAM
[2018-11-30 12:21] LABS: BACTERIA,URINE FEW /HPF (Neg); HYALINE CASTS 0-3 /LPF (NEGATIVE); MUCUS STRANDS MODERATE /LPF (Neg); RBC,URINE 0-2 /HPF (0-2); SQUAMOUS EPITHELIAL CELL,UR MODERATE /LPF (FEW); WBC,URINE 0-4 /HPF (0-4)
[2018-11-30 12:25] LABS: ALANINE AMINOTRANSFERASE 36 U/L (12-78); ALBUMIN/GLOBULIN RATIO 1.1 (1.1-1.5); ALKALINE PHOSPHATASE 106 IU/L (46-116); ANION GAP 11 (8-16); ASPARTATE AMINO TRANSFERASE 13 U/L (10-37); BILIRUBIN,TOTAL 0.5 MG/DL (0.1-1.0); BLOOD UREA NITROGEN 16 MG/DL (7-18); BUN/CREATININE RATIO 13.4 (6.6-38.0); CALCIUM 9.2 MG/DL (8.5-10.1); CHLORIDE 96 MMOL/L (99-107); CREATININE 1.19 MG/DL (0.40-0.90); GLUCOSE 267 MG/DL (70-104); LIPASE 79 U/L (73-393); SODIUM 133 MMOL/L (135-145); TOTAL CARBON DIOXIDE 25.8 MMOL/L (24-32); TOTAL PROTEIN 7.8 G/DL (6.4-8.2); eGFR 48 ML/MIN
[2018-11-30 16:30] VITALS: BP 99/63
== END | disposition home or self-care (01) ==
LOC: ER 11:06
DX: E11.43 Type 2 diabetes mellitus with diabetic autonomic (poly)neuropathy (principal); K31.84 Gastroparesis; E11.65 Type 2 diabetes mellitus with hyperglycemia; R11.2 Nausea with vomiting, unspecified; R10.84 Generalized abdominal pain; I48.91 Unspecified atrial fibrillation; I50.9 Heart failure, unspecified; E78.00 Pure hypercholesterolemia, unspecified; J45.909 Unspecified asthma, uncomplicated; K21.9 Gastro-esophageal reflux disease without esophagitis; G89.29 Other chronic pain; Z56.0 Unemployment, unspecified; Z90.49 Acquired absence of other specified parts of digestive tract; Z90.710 Acquired absence of both cervix and uterus; Z98.890 Other specified postprocedural states; Z79.82 Long term (current) use of aspirin; Z79.899 Other long term (current) drug therapy; Z88.1 Allergy status to other antibiotic agents; Z88.0 Allergy status to penicillin; Z88.6 Allergy status to analgesic agent
CPT/HCPCS: 36415; 80053; 81001; 81025; 82948; 83690; 85025; 85610; 96361; 96374; 96375; 96376; 99284; J0780; J1200; J1815; J2270; J2405; J2765; J7030; J7042

== ENCOUNTER 2018-12-28 01:19 | Outpatient (CLI) | payer MEDICAID ==
[~2018-12-28 01:19] MED LIST changes: -acetaminophen 325mg tablet PO ONE; -dextrose 5%-normal saline 1,000 ML IV ONE; -diphenhydrAMINE 50 mg/ml inj IV ONE; -fentaNYL/PF 50MCG/1 ML 2ML syringe IV ONE; -insulin regular, human 10 units/0.1 ml syringe IV ONE; -metoclopramide 5 mg/ml inj IV ONE; -morphine 4 MG/ML inj SYRINge IV ONE; -normal saline 1000ml 1,000 ML IV ONE; -ondansetron/PF 4mg/2ml inj IV ONE; -proCHLORperazine 10 MG/2 ml inj IV ONE
== END 2018-12-28 23:59 | disposition home or self-care (01) ==
LOC: DIABETIC 01:19
PROVIDERS: ATTEND Family Medicine
DX: E10.8 Type 1 diabetes mellitus with unspecified complications (principal); Z71.3 Dietary counseling and surveillance; E10.9 Type 1 diabetes mellitus without complications
CPT/HCPCS: G0108

== ENCOUNTER 2019-01-23 15:35 | Emergency (ER) | payer MEDICAID ==
[~2019-01-23] VITALS: Ht 170.2 cm; Wt 66.0 kg
[2019-01-23] MEDS ORDERED: LORazepam 2 mg/ml vial IV ONE (15:45)
[2019-01-23] MEDS ORDERED: diphenhydrAMINE 50 mg/ml inj IV ONE (15:45)
[2019-01-23] MEDS ORDERED: normal saline 1000ML IV soln IVB ONE ×2 (15:45)
[2019-01-23] MEDS ORDERED: HYDROcodone/acetaminophen 10/325mg tab PO ONE (15:45)
[2019-01-23] MEDS ORDERED: metoclopramide 5 mg/ml inj IV ONE (15:45)
[2019-01-23] MEDS ORDERED: insulin regular, human 10 units/0.1 ml syringe IV ONE (15:50)
[2019-01-23 16:25] LABS: BASOPHILS # (AUTO) 0.1 X10'3 (0-0.2); BASOPHILS % (AUTO) 0.8 % (0-1); EOSINOPHILS # (AUTO) 0.2 X10'3 (0-0.9); EOSINOPHILS % (AUTO) 2.4 % (0-6); HEMATOCRIT 44.4 % (35.0-45.0); HEMOGLOBIN 14.8 g/dl (12.0-16.0); LYMPHOCYTES % (AUTO) 26.9 % (21-51); MEAN CORPUSCULAR HEMOGLOBIN 28.9 PG (27.0-31.0); MEAN CORPUSCULAR HGB CONC 33.3 g/dL (33.0-36.5); MEAN CORPUSCULAR VOLUME 86.7 FL (78-98); MEAN PLATELET VOLUME 10.1 FL (7.4-10.4); MONOCYTES # (AUTO) 0.5 X10'3 (0-0.9); MONOCYTES % (AUTO) 6.3 % (2-12); NEUTROPHILS # (AUTO) 4.8 X10'3 (1.8-7.7); NEUTROPHILS % (AUTO) 63.6 % (42-75); PLATELET COUNT 189 X10'3 (140-440); RED BLOOD COUNT 5.11 X10'6 (4.20-5.60); WHITE BLOOD COUNT 7.6 X10'3 (4.5-11.0)
[2019-01-23 16:37] LABS: CLARITY,URINE SLIGHTLY CLOUDY (Clear); COLOR,URINE YELLOW (Yellow); GLUCOSE, URINE >=1000 mg/dl (Neg); KETONES,URINE 15 mg/dl (Neg); LEUKOCYTE ESTERASE ,URINE NEGATIVE (Neg); NITRITES, URINE NEGATIVE (Neg); OCCULT BLOOD,URINE TRACE-LYSED (Neg); PH,URINE 5.5 (4.8-8.0); PROTEIN,URINE NEGATIVE (Neg); UROBILINOGEN,URINE 0.2 E.U/dL (0.2-1.0)
[2019-01-23 16:39] LABS: ALANINE AMINOTRANSFERASE 43 U/L (12-78); ALBUMIN 3.8 G/DL (3.4-5.0); ALBUMIN/GLOBULIN RATIO 1.2 (1.1-1.5); ALKALINE PHOSPHATASE 123 IU/L (46-116); ANION GAP 7 (8-16); ASPARTATE AMINO TRANSFERASE 12 U/L (10-37); BILIRUBIN,TOTAL 0.6 MG/DL (0.1-1.0); BLOOD UREA NITROGEN 12 MG/DL (7-18); BUN/CREATININE RATIO 16.7 (6.6-38.0); CALCIUM 9.1 MG/DL (8.5-10.1); CHLORIDE 102 MMOL/L (99-107); CREATININE 0.72 MG/DL (0.40-0.90); GLUCOSE 336 MG/DL (70-104); POTASSIUM 3.5 MMOL/L (3.5-5.1); SODIUM 137 MMOL/L (135-145); TOTAL CARBON DIOXIDE 27.8 MMOL/L (24-32); TOTAL PROTEIN 7.1 G/DL (6.4-8.2); eGFR 86 ML/MIN
[2019-01-23 16:46] LABS: UA COLLECTION TYPE CLN CATCH MIDSTREAM
[2019-01-23 16:51] LABS: BACTERIA,URINE FEW /HPF (Neg); RBC,URINE 0-2 /HPF (0-2); SQUAMOUS EPITHELIAL CELL,UR FEW /LPF (FEW); WBC,URINE 0-4 /HPF (0-4)
--- NOTE | 2019-01-23 17:45 | NUR ---
PT BACK FROM CT NOW, PRAKASH MARTEL TO CHECK BG.
[2019-01-23] MEDS ORDERED: AMIT10TA6 PO (18:10)
[2019-01-23] MEDS ORDERED: LISI2.5T2 PO (18:10)
[2019-01-23] MEDS ORDERED: INSULIN PUMP (18:11)
[2019-01-23 18:20] VITALS: BP 126/80
== END 2019-01-23 19:02 | disposition home or self-care (01) ==
LOC: ER 15:35
DX: E10.65 Type 1 diabetes mellitus with hyperglycemia (principal); E86.0 Dehydration; R10.9 Unspecified abdominal pain; E10.10 Type 1 diabetes mellitus with ketoacidosis without coma; I49.9 Cardiac arrhythmia, unspecified; I48.91 Unspecified atrial fibrillation; E78.00 Pure hypercholesterolemia, unspecified; I50.9 Heart failure, unspecified; J45.909 Unspecified asthma, uncomplicated; K21.9 Gastro-esophageal reflux disease without esophagitis; G89.29 Other chronic pain; F17.210 Nicotine dependence, cigarettes, uncomplicated; Z90.49 Acquired absence of other specified parts of digestive tract; Z90.710 Acquired absence of both cervix and uterus; Z98.890 Other specified postprocedural states; Z56.0 Unemployment, unspecified; Z88.0 Allergy status to penicillin; Z88.1 Allergy status to other antibiotic agents; Z88.8 Allergy status to other drugs, medicaments and biological substances; Z79.82 Long term (current) use of aspirin; Z79.4 Long term (current) use of insulin; Z79.899 Other long term (current) drug therapy
CPT/HCPCS: 36415; 74176; 80053; 81001; 82948; 85025; 96361; 96374; 96375; 99284; J1200; J1815; J2060; J2765; J7030

== ENCOUNTER 2019-04-14 23:20 | Emergency (ER) | payer MEDICAID ==
[~2019-04-14] VITALS: Ht 170.2 cm; Wt 57.7 kg
[~2019-04-14 23:20] MED LIST changes: +AMIT10TA6 PO; +INSULIN PUMP; +LISI2.5T2 PO; +ONDA4TAB6 PO; -ONDA8TAB13 PO
[2019-04-15 00:29] LABS: URINE HCG NEGATIVE (NEG)
[2019-04-15 00:36] LABS: CLARITY,URINE SLIGHTLY CLOUDY (Clear); COLOR,URINE YELLOW (Yellow); GLUCOSE, URINE 250 mg/dl (Neg); KETONES,URINE NEGATIVE (Neg); LEUKOCYTE ESTERASE ,URINE NEGATIVE (Neg); NITRITES, URINE NEGATIVE (Neg); OCCULT BLOOD,URINE NEGATIVE (Neg); PH,URINE 5.5 (4.8-8.0); PROTEIN,URINE NEGATIVE (Neg)
[2019-04-15 00:37] LABS: BASOPHILS % (AUTO) 0.6 % (0-1); EOSINOPHILS # (AUTO) 0.3 X10'3 (0-0.9); EOSINOPHILS % (AUTO) 4.5 % (0-6); HEMATOCRIT 42.6 % (35.0-45.0); HEMOGLOBIN 14.1 g/dl (12.0-16.0); LYMPHOCYTES # (AUTO) 2.1 X10'3 (1.1-4.8); LYMPHOCYTES % (AUTO) 27.6 % (21-51); MEAN CORPUSCULAR HEMOGLOBIN 29.4 PG (27.0-31.0); MEAN CORPUSCULAR HGB CONC 33.1 g/dL (33.0-36.5); MEAN CORPUSCULAR VOLUME 88.8 FL (78-98); MEAN PLATELET VOLUME 10.2 FL (7.4-10.4); MONOCYTES # (AUTO) 0.4 X10'3 (0-0.9); MONOCYTES % (AUTO) 5.9 % (2-12); NEUTROPHILS # (AUTO) 4.6 X10'3 (1.8-7.7); NEUTROPHILS % (AUTO) 61.4 % (42-75); PLATELET COUNT 193 X10'3 (140-440); RED CELL DISTRIBUTION WIDTH 15.2 % (11.5-14.5); WHITE BLOOD COUNT 7.5 X10'3 (4.5-11.0)
[2019-04-15 00:38] LABS: URINE AMPHETAMINE SCREEN NEGATIVE (Neg); URINE BARBITUATE SCREEN NEGATIVE (Neg); URINE BENZODIAZEPINES SCREEN NEGATIVE (Neg); URINE CANNABINOID SCREEN NEGATIVE (Neg); URINE COCAINE SCREEN NEGATIVE (Neg); URINE METHADONE SCREEN NEGATIVE (Neg); URINE OPIATE SCREEN POSITIVE (Neg); URINE PHENCYCLIDINE SCREEN NEGATIVE (Neg)
[2019-04-15 00:39] LABS: UA COLLECTION TYPE CLN CATCH MIDSTREAM
[2019-04-15 00:42] LABS: MUCUS STRANDS MANY /LPF (Neg); SQUAMOUS EPITHELIAL CELL,UR FEW /LPF (FEW)
[2019-04-15 00:43] LABS: ALANINE AMINOTRANSFERASE 58 U/L (12-78); ALBUMIN 3.6 G/DL (3.4-5.0); ALKALINE PHOSPHATASE 107 IU/L (46-116); ANION GAP 10 (8-16); ASPARTATE AMINO TRANSFERASE 38 U/L (10-37); BILIRUBIN,TOTAL 0.5 MG/DL (0.1-1.0); BLOOD UREA NITROGEN 18 MG/DL (7-18); BUN/CREATININE RATIO 25.7 (6.6-38.0); CHLORIDE 103 MMOL/L (99-107); GLUCOSE 236 MG/DL (70-104); MAGNESIUM 1.7 MG/DL (1.5-2.4); POTASSIUM 3.7 MMOL/L (3.5-5.1); SODIUM 140 MMOL/L (135-145); TOTAL CARBON DIOXIDE 27.2 MMOL/L (24-32); TOTAL PROTEIN 7.2 G/DL (6.4-8.2); eGFR 89 ML/MIN
[2019-04-15 00:44] LABS: BACTERIA,URINE FEW /HPF (Neg); CAL OXALATE CRYSTALS 2+ /HPF (NEGATIVE); RBC,URINE NONE SEEN /HPF (0-2); WBC,URINE 0-4 /HPF (0-4)
[2019-04-15] MEDS ORDERED: CIPR10DR RIGHT EAR (01:17)
[2019-04-15 01:22] VITALS: BP 109/62
[2019-04-16] MEDS ORDERED: LEVO500T2 PO (21:54)
[2019-04-16] MEDS ORDERED: COROTSUS OT (21:54)
== END 2019-04-15 01:33 | disposition home or self-care (01) ==
LOC: ER 23:21
DX: E11.8 Type 2 diabetes mellitus with unspecified complications (principal); H92.01 Otalgia, right ear; I48.91 Unspecified atrial fibrillation; I50.9 Heart failure, unspecified; E78.00 Pure hypercholesterolemia, unspecified; J45.909 Unspecified asthma, uncomplicated; K21.9 Gastro-esophageal reflux disease without esophagitis; G89.29 Other chronic pain; F41.9 Anxiety disorder, unspecified; F32.9 Major depressive disorder, single episode, unspecified; Z90.49 Acquired absence of other specified parts of digestive tract; Z90.710 Acquired absence of both cervix and uterus; Z98.890 Other specified postprocedural states; Z85.89 Personal history of malignant neoplasm of other organs and systems; Z88.1 Allergy status to other antibiotic agents; Z88.8 Allergy status to other drugs, medicaments and biological substances; Z88.0 Allergy status to penicillin; Z88.2 Allergy status to sulfonamides; Z79.82 Long term (current) use of aspirin; Z79.4 Long term (current) use of insulin; Z79.899 Other long term (current) drug therapy; Z56.0 Unemployment, unspecified
CPT/HCPCS: 36415; 80053; 80305; 81001; 81025; 82948; 83735; 84100; 85025; 99283

== ENCOUNTER 2019-04-16 20:47 | Emergency (ER) | payer MEDICAID ==
[~2019-04-16] VITALS: Ht 170.2 cm; Wt 65.9 kg
[~2019-04-16 20:47] MED LIST changes: +CIPR10DR RIGHT EAR
[2019-04-16] MEDS ORDERED: LEVO500T2 PO (21:54)
[2019-04-16] MEDS ORDERED: COROTSUS OT (21:54)
[2019-04-16 21:56] VITALS: BP 152/86
== END 2019-04-16 22:02 | disposition home or self-care (01) ==
LOC: ER 20:48
DX: H66.91 Otitis media, unspecified, right ear (principal); Z76.0 Encounter for issue of repeat prescription; I48.91 Unspecified atrial fibrillation; I50.9 Heart failure, unspecified; E78.00 Pure hypercholesterolemia, unspecified; J45.909 Unspecified asthma, uncomplicated; K21.9 Gastro-esophageal reflux disease without esophagitis; E11.9 Type 2 diabetes mellitus without complications; G89.29 Other chronic pain; Z56.0 Unemployment, unspecified; Z90.49 Acquired absence of other specified parts of digestive tract; Z90.710 Acquired absence of both cervix and uterus; Z98.890 Other specified postprocedural states; Z88.1 Allergy status to other antibiotic agents; Z88.0 Allergy status to penicillin; Z88.6 Allergy status to analgesic agent; Z88.8 Allergy status to other drugs, medicaments and biological substances; Z79.82 Long term (current) use of aspirin
CPT/HCPCS: 99283

== ENCOUNTER 2019-04-27 15:34 | Inpatient (IN) | payer MEDICAID ==
[~2019-04-27] VITALS: Ht 170.2 cm; Wt 57.2 kg
[~2019-04-27 15:34] MED LIST changes: -ALBU6.7H INH; +ALBU6.7H9 INH; -CIPR10DR RIGHT EAR; +COROTSUS OT
[2019-04-27] MEDS ORDERED: normal saline 1000ML IV soln IVB ONE (15:50)
[2019-04-27 16:19] LABS: BASOPHILS % (AUTO) 0.2 % (0-1); EOSINOPHILS % (AUTO) 0.1 % (0-6); HEMATOCRIT 45.8 % (35.0-45.0); HEMOGLOBIN 14.3 g/dl (12.0-16.0); LYMPHOCYTES # (AUTO) 0.8 X10'3 (1.1-4.8); LYMPHOCYTES % (AUTO) 6.5 % (21-51); MEAN CORPUSCULAR HEMOGLOBIN 29.5 PG (27.0-31.0); MEAN CORPUSCULAR HGB CONC 31.3 g/dL (33.0-36.5); MEAN CORPUSCULAR VOLUME 94.1 FL (78-98); MEAN PLATELET VOLUME 10.8 FL (7.4-10.4); MONOCYTES # (AUTO) 0.3 X10'3 (0-0.9); MONOCYTES % (AUTO) 2.2 % (2-12); NEUTROPHILS # (AUTO) 11.2 X10'3 (1.8-7.7); PLATELET COUNT 240 X10'3 (140-440); RED BLOOD COUNT 4.86 X10'6 (4.20-5.60); RED CELL DISTRIBUTION WIDTH 15.2 % (11.5-14.5); WHITE BLOOD COUNT 12.4 X10'3 (4.5-11.0)
[2019-04-27 16:25] LABS: ALANINE AMINOTRANSFERASE 44 U/L (12-78); ALBUMIN/GLOBULIN RATIO 1.2 (1.1-1.5); ALKALINE PHOSPHATASE 105 IU/L (46-116); ANION GAP 27 (8-16); ASPARTATE AMINO TRANSFERASE 7 U/L (10-37); BILIRUBIN,TOTAL 0.8 MG/DL (0.1-1.0); BLOOD UREA NITROGEN 28 MG/DL (7-18); BUN/CREATININE RATIO 21.4 (6.6-38.0); CALCIUM 10.1 MG/DL (8.5-10.1); CHLORIDE 94 MMOL/L (99-107); CREATININE 1.31 MG/DL (0.40-0.90); MAGNESIUM 1.8 MG/DL (1.5-2.4); PHOSPHORUS 6.1 MG/DL (2.3-4.5); POTASSIUM 5.3 MMOL/L (3.5-5.1); SODIUM 133 MMOL/L (135-145); TOTAL PROTEIN 7.3 G/DL (6.4-8.2); eGFR 43 ML/MIN
[2019-04-27 16:34] LABS: GLUCOSE 580 MG/DL (70-104); TOTAL CARBON DIOXIDE 11.7 MMOL/L (24-32)
[2019-04-27] MEDS ORDERED: potassium CL 20mEq in D5-1/2NS 1,000 ML IV PRN (17:06)
[2019-04-27] MEDS: normal saline 1000ml 1,000 ML IV SCH ×8 (17:06→22:46)
[2019-04-27] MEDS ORDERED: sodium bicarbonate (8.4%) inj. 100 MEQ in dextrose 5% water 500ml 500 ML IV PRN ×2 (17:06→18:46)
[2019-04-27] MEDS ORDERED: sodium bicarbonate (8.4%) inj. 50 MEQ in dextrose 5% water 500ml 250 ML IV PRN ×2 (17:06→18:46)
[2019-04-27] MEDS ORDERED: sodium phosphate inj. 30 MMOL in dextrose 5%-water 250 ML IV PRN ×2 (17:10→18:50)
[2019-04-27] MEDS ORDERED: potassium CL 10mEq/100ml bag 100 ML IV PRN ×4 (17:10→18:50)
[2019-04-27] MEDS ORDERED: Neutra Phos packet PO PRN ×2 (17:10→18:50)
[2019-04-27] MEDS ORDERED: potassium Cl 20 mEq SR tablet PO PRN ×4 (17:10→18:50)
[2019-04-27] MEDS ORDERED: insulin regular, human vial - multi-dose IV PRN ×2 (17:10→18:50)
[2019-04-27] MEDS ORDERED: sodium phosphate inj. 15 MMOL in dextrose 5%-water 150 ML IV PRN ×2 (17:10→18:50)
[2019-04-27] MEDS ORDERED: fentaNYL/PF 50MCG/1 ML 2ML syringe IV ONE (17:55)
[2019-04-27 18:01] LABS: ABG BASE EXCESS -21.1 mmol/L (-2.0-3.0); ABG HCO3 6.3 mmol/L (22.0-26.0); ABG PCO2 (T) 19.7 mmHg (32.0-45.0); ABG PO2 (T) 110.9 mmHg (83-108); FCOHb 0.7 % (0.5-1.5); FMetHb 0.3 % (0.3-1.12); TOTAL HEMOGLOBIN 14.3 G/dl (12.0-16.0)
[2019-04-27] MEDS: insulin regular, DKA only 100 UNIT in normal saline 100ml IV soln 99 ML IV SCH ×2 (18:03)
[2019-04-27] MEDS ORDERED: insulin regular, DKA only 100 UNIT in normal saline 100ml IV soln 99 ML IV SCH ×2 (18:46)
[2019-04-27 20:01] LABS: ALBUMIN 3.8 G/DL (3.4-5.0); ANION GAP 29 (8-16); BLOOD UREA NITROGEN 27 MG/DL (7-18); BUN/CREATININE RATIO 23.1 (6.6-38.0); CALCIUM 9.2 MG/DL (8.5-10.1); CHLORIDE 101 MMOL/L (99-107); CREATININE 1.17 MG/DL (0.40-0.90); SODIUM 138 MMOL/L (135-145); eGFR 49 ML/MIN
[2019-04-27 20:12] LABS: GLUCOSE 467 MG/DL (70-104); TOTAL CARBON DIOXIDE 8.2 MMOL/L (24-32)
[2019-04-27] MEDS ORDERED: morphine 4 MG/ML inj SYRINge IV ONE (21:05)
[2019-04-27] MEDS ORDERED: ondansetron/PF 4mg/2ml inj IV ONE (21:05)
--- NOTE | 2019-04-27 22:33 | NUR ---
PT BG 204, K 5.3. NONADMINISTERED NS 250 AND STARTED D5 1/2NS AT 250 ML/HR PER PROTOCOL. DOUBLE CHECK WITH JANET MAGANA
[2019-04-27 22:44] LABS: ALBUMIN 3.3 G/DL (3.4-5.0); ANION GAP 20 (8-16); BLOOD UREA NITROGEN 23 MG/DL (7-18); BUN/CREATININE RATIO 20.9 (6.6-38.0); CALCIUM 8.9 MG/DL (8.5-10.1); CHLORIDE 108 MMOL/L (99-107); GLUCOSE 219 MG/DL (70-104); SODIUM 141 MMOL/L (135-145); eGFR 53 ML/MIN
[2019-04-27 22:46] LABS: PHOSPHORUS 3.5 MG/DL (2.3-4.5); POTASSIUM 4.8 MMOL/L (3.5-5.1)
[2019-04-27 22:49] LABS: TOTAL CARBON DIOXIDE 13.1 MMOL/L (24-32)
[2019-04-28] VITALS (7 sets, daily range): BP systolic 80–109; BP diastolic 37–84
[2019-04-28] MEDS ORDERED: INSU100V11 (00:44)
[2019-04-28] MEDS ORDERED: ALEN70TA13 (00:44)
[2019-04-28] MEDS ORDERED: LIRA0.6P2 SQ (00:44)
[2019-04-28] MEDS ORDERED: POTA10TA19 (00:44)
[2019-04-28] MEDS ORDERED: PREG50CA PO (00:44)
[2019-04-28] MEDS ORDERED: CALC-880 (00:44)
[2019-04-28] MEDS ORDERED: DULO30CA52 PO (00:44)
[2019-04-28] MEDS: normal saline 1000ml 1,000 ML IV SCH ×3 (01:06→17:22)
--- NOTE | 2019-04-28 01:35 | NUR ---
Patient arrived to the floor on a hospital bed from ER. Patient with 2 PIVs in the L Hand with D5 1/2NS infusing at a rate of 250mL/hr & Insulin drip infusing at 5units/hr. Patient still c/o pain and nausea. She is lethargic but arousable. VS obtained and tele monitor applied. Patient was assisted to the restroom immediately upon arrival to void. Patient able to ambulate back into bed with assistance. No apparent s/s of distress noted. Blood sugar checked as ordered.
--- NOTE | 2019-04-28 01:49 | NUR ---
Patient arrived to the floor and upon initial assessment BP was reading 70s/40s on vitals machine. Patient lethargic but arousable. Took manual BP and got a reading of 80/60. Called MD since patient's BP was not this low in ER and because MAP averages to 67 - MD stated no need to treat at this time.
[2019-04-28] MEDS: potassium CL 20mEq in D5-1/2NS 1,000 ML IV PRN ×2 (02:22→06:32)
[2019-04-28] MEDS: ondansetron/PF 4mg/2ml inj IV PRN ×4 (02:36→22:48)
[2019-04-28 03:51] LABS: ALBUMIN 2.8 G/DL (3.4-5.0); ANION GAP 13 (8-16); BLOOD UREA NITROGEN 19 MG/DL (7-18); BUN/CREATININE RATIO 21.3 (6.6-38.0); CALCIUM 8.5 MG/DL (8.5-10.1); CHLORIDE 109 MMOL/L (99-107); CREATININE 0.89 MG/DL (0.40-0.90); GLUCOSE 128 MG/DL (70-104); PHOSPHORUS 2.5 MG/DL (2.3-4.5); POTASSIUM 4.1 MMOL/L (3.5-5.1); SODIUM 142 MMOL/L (135-145); eGFR 67 ML/MIN
[2019-04-28] MEDS: insulin regular, DKA only 100 UNIT in normal saline 100ml IV soln 99 ML IV SCH ×2 (05:33)
--- NOTE | 2019-04-28 05:36 | NUR ---
Patient's last blood glucose was 88 with D5 running at 250mL/hr and Insulin drip infusing at 5units/hr. Call placed to MD due to lower blood glucose and inability to titrate up on D5. When asked patient did state that she felt like she might be able to try to eat at breakfast time. Carb controlled diet ordered per protocol for breakfast. MD also gave order to decrease insulin drip to 3units/hr
[2019-04-28] MEDS ORDERED: dextrose 50%-water 50ml dispensing syringe IV PRN ×4 (05:40→09:50)
[2019-04-28] MEDS ORDERED: glucagon, human recombinant 1mg kit SUBCUT PRN ×3 (05:40→09:50)
[2019-04-28] MEDS ORDERED: dextrose ORAL solution 15 GM/59 ML bottle PO PRN ×4 (05:40→09:50)
[2019-04-28] MEDS ORDERED: insulin Lispro (HumaLOG) vial - multi-dose SQ SCH (05:40)
--- NOTE | 2019-04-28 06:00 | NUR ---
Patient in room PCU 3020. I have received report from Lulu AGUIRRE and had the opportunity to ask questions and assume patient care.
--- NOTE | 2019-04-28 06:13 | NUR ---
Problems reprioritized. Patient report given, questions answered & plan of care reviewed with Td AGUIRRE.
--- NOTE | 2019-04-28 06:45 | NUR ---
PAGER ID: [phone] MESSAGE: RE: Juana Ferrari, Room: 3020. Pt DKA protocol. Last insulin check 73, insulin drip running at 3 units/hr and D5 1/2 NS running at 250/hr. Anion gap 13 and carb 20. Can I decrease insulin drip to 1U/hr? -Dr. Deras paged concerning Pt's blood sugar and insulin drip.
[2019-04-28] MEDS: K and/or MAG REPLACEMENT MC SCH (08:00)
[2019-04-28] MEDS ORDERED: K and/or MAG REPLACEMENT MC SCH (08:00)
[2019-04-28 08:32] LABS: ALBUMIN 2.7 G/DL (3.4-5.0); ANION GAP 7 (8-16); BLOOD UREA NITROGEN 17 MG/DL (7-18); BUN/CREATININE RATIO 21.8 (6.6-38.0); CALCIUM 8.1 MG/DL (8.5-10.1); CHLORIDE 112 MMOL/L (99-107); CREATININE 0.78 MG/DL (0.40-0.90); GLUCOSE 88 MG/DL (70-104); MAGNESIUM 1.6 MG/DL (1.5-2.4); PHOSPHORUS 2.6 MG/DL (2.3-4.5); POTASSIUM 4.1 MMOL/L (3.5-5.1); SODIUM 141 MMOL/L (135-145); TOTAL CARBON DIOXIDE 21.9 MMOL/L (24-32); eGFR 78 ML/MIN
[2019-04-28] MEDS ORDERED: MESSAGE TO PHARMACY PO ONE (09:50)
[2019-04-28 10:20] LABS: ABG BASE EXCESS -4.8 mmol/L (-2.0-3.0); ABG HCO3 19.7 mmol/L (22.0-26.0); ABG OXYGEN SATURATION 97.1 % (95-98); ABG PCO2 (T) 34.7 mmHg (32.0-45.0); ABG PH (T) 7.373 (7.350-7.450); ABG PO2 (T) 85.9 mmHg (83-108); ALLEN'S TEST Positive; FCOHb 0.3 % (0.5-1.5); FMetHb 0.2 % (0.3-1.12); FO2Hb 96.6 % (94-100); TOTAL HEMOGLOBIN 11.9 G/dl (12.0-16.0)
[2019-04-28 10:44] LABS: HEMOGLOBIN A1C 9.1 % (4.5-6.2)
[2019-04-28] MEDS: albuterol 2.5 MG/3 ML nebule NEB SCH ×3 (11:53→19:20)
[2019-04-28] MEDS ORDERED: non-formulary drug (Albuterol Sulfate (Proventil Hfa) 2 PUFFS) INH SCH (13:00)
[2019-04-28] MEDS ORDERED: gabapentin 300mg capsule PO SCH (13:00)
[2019-04-28] MEDS ORDERED: GABAPENTIN PO SCH (13:00)
[2019-04-28] MEDS: insulin Lispro (HumaLOG) vial - multi-dose SQ SCH ×3 (13:45→21:34)
[2019-04-28 16:43] LABS: URINE AMPHETAMINE SCREEN NEGATIVE (Neg); URINE BARBITUATE SCREEN NEGATIVE (Neg); URINE BENZODIAZEPINES SCREEN NEGATIVE (Neg); URINE CANNABINOID SCREEN NEGATIVE (Neg); URINE COCAINE SCREEN NEGATIVE (Neg); URINE METHADONE SCREEN NEGATIVE (Neg); URINE OPIATE SCREEN POSITIVE (Neg); URINE PHENCYCLIDINE SCREEN NEGATIVE (Neg)
--- NOTE | 2019-04-28 17:27 | NUR ---
PAGER ID: [phone] MESSAGE: Re: Juana Ferrari, Room: 3020. Pt requesting pain medication for lower abd pain. [facility] we [facility] [place] [facility] Pt's request for pain medication
--- NOTE | 2019-04-28 18:00 | NUR ---
Problems reprioritized. Patient report given, questions answered & plan of care reviewed with Ambika AGUIRRE.
--- NOTE | 2019-04-28 18:13 | NUR ---
Patient in room PCU 3020. I have received report from CARLA SALVADOR and had the opportunity to ask questions and assume patient care. Addendum: 04/28/19 at 1813 by Ying Ortez RN Amended: Links added.
[2019-04-28] MEDS: budesonide 0.5mg/2ml UD nebule IH SCH (19:27)
[2019-04-28] MEDS ORDERED: BECLOMETHASONE DIPROPIONATE INH SCH (20:00)
[2019-04-28] MEDS: gabapentin 300mg capsule PO SCH (20:24)
[2019-04-28] MEDS: heparin, porcine 5000 units/ml vial SQ SCH (20:25)
[2019-04-28] MEDS: atorvastatin 10mg tablet PO SCH (20:25)
[2019-04-28] MEDS ORDERED: SIMVASTATIN PO SCH (21:00)
[2019-04-28] MEDS ORDERED: insulin glargine (Lantus) pen - multi-dose SQ SCH (21:00)
[2019-04-28] MEDS: insulin glargine (Lantus) pen - multi-dose SQ SCH (21:35)
--- NOTE | 2019-04-28 22:34 | NUR ---
PAGER ID: [phone] MESSAGE: [phone] Juana Ferrari 48 - can we get an order Tylenol for pain, thanks
[2019-04-28] MEDS ORDERED: acetaminophen 325mg tablet PO PRN (22:35)
[2019-04-29] MEDS: normal saline 1000ml 1,000 ML IV SCH ×4 (01:55→20:00)
--- NOTE | 2019-04-29 06:29 | NUR ---
Problems reprioritized. Patient report given, questions answered & plan of care reviewed with CARLA Joe. Addendum: 04/29/19 at 0635 by Ying Ortez RN Amended: Links added.
[2019-04-29] MEDS: budesonide 0.5mg/2ml UD nebule IH SCH ×2 (06:53→19:18)
[2019-04-29] MEDS: albuterol 2.5 MG/3 ML nebule NEB SCH ×4 (06:53→19:18)
[2019-04-29 07:00] VITALS: BP 115/73
[2019-04-29] MEDS ORDERED: HYDROcodone/acetaminophen 5mg/325mg tablet PO PRN (07:45)
[2019-04-29] MEDS: PARoxetine 20mg tablet PO SCH (07:47)
[2019-04-29] MEDS: amitriptyline 10mg tablet PO SCH (07:47)
[2019-04-29] MEDS: gabapentin 300mg capsule PO SCH ×3 (07:47→21:00)
[2019-04-29] MEDS: aspirin 81mg tablet.DR PO SCH (07:47)
[2019-04-29] MEDS: heparin, porcine 5000 units/ml vial SQ SCH ×2 (07:48→20:59)
[2019-04-29] MEDS: K and/or MAG REPLACEMENT MC SCH (08:00)
[2019-04-29] MEDS: lisinopril 2.5mg tablet PO SCH (08:00)
[2019-04-29] MEDS ORDERED: non-formulary drug (Aspirin (Aspir 81) 1 TABLET) PO SCH (08:00)
[2019-04-29] MEDS: ondansetron/PF 4mg/2ml inj IV PRN ×3 (08:04→23:09)
[2019-04-29] MEDS: HYDROcodone/acetaminophen 5mg/325mg tablet PO PRN ×2 (08:04→12:18)
[2019-04-29] MEDS: insulin Lispro (HumaLOG) vial - multi-dose SQ SCH ×2 (08:39→13:13)
[2019-04-29 09:51] LABS: ALANINE AMINOTRANSFERASE 46 U/L (12-78); ALBUMIN 2.8 G/DL (3.4-5.0); ALBUMIN/GLOBULIN RATIO 1.1 (1.1-1.5); ALKALINE PHOSPHATASE 69 IU/L (46-116); ANION GAP 9 (8-16); ASPARTATE AMINO TRANSFERASE 41 U/L (10-37); BILIRUBIN,TOTAL 0.4 MG/DL (0.1-1.0); BLOOD UREA NITROGEN 8 MG/DL (7-18); BUN/CREATININE RATIO 11.1 (6.6-38.0); CALCIUM 8.4 MG/DL (8.5-10.1); CHLORIDE 107 MMOL/L (99-107); CREATININE 0.72 MG/DL (0.40-0.90); GLUCOSE 360 MG/DL (70-104); POTASSIUM 4.1 MMOL/L (3.5-5.1); SODIUM 138 MMOL/L (135-145); TOTAL CARBON DIOXIDE 22.2 MMOL/L (24-32); TOTAL PROTEIN 5.4 G/DL (6.4-8.2); eGFR 86 ML/MIN
[2019-04-29 09:53] LABS: BASOPHILS % (AUTO) 0.6 % (0-1); EOSINOPHILS % (AUTO) 0.5 % (0-6); HEMATOCRIT 34.1 % (35.0-45.0); HEMOGLOBIN 11.3 g/dl (12.0-16.0); LYMPHOCYTES # (AUTO) 1.3 X10'3 (1.1-4.8); LYMPHOCYTES % (AUTO) 25.4 % (21-51); MEAN CORPUSCULAR HEMOGLOBIN 29.5 PG (27.0-31.0); MEAN CORPUSCULAR VOLUME 89.6 FL (78-98); MEAN PLATELET VOLUME 10.1 FL (7.4-10.4); MONOCYTES # (AUTO) 0.3 X10'3 (0-0.9); MONOCYTES % (AUTO) 6.3 % (2-12); NEUTROPHILS # (AUTO) 3.3 X10'3 (1.8-7.7); NEUTROPHILS % (AUTO) 67.2 % (42-75); PLATELET COUNT 138 X10'3 (140-440); RED BLOOD COUNT 3.81 X10'6 (4.20-5.60); RED CELL DISTRIBUTION WIDTH 14.4 % (11.5-14.5); WHITE BLOOD COUNT 4.9 X10'3 (4.5-11.0)
[2019-04-29] MEDS ORDERED: iohexol 350MG/ML 100ml bottle IV ONE (10:01)
[2019-04-29 11:00] VITALS: BP 100/54
--- NOTE | 2019-04-29 11:02 | NUR ---
DM Consult: Pt admit w/ DKA A1C 9.1; pt hx T1DM non-compliant admit frequently for DM complications. N/V resolved per MD note; PO 50-75% first meal. GLU 360 down from 580 on admit. Pt will need DM ed once stable prior to d/c. Will continue to monitor. Rec: 1. continue carb controlled diet 2. DM ed prior to d/c 3. wt per rx Addendum: 04/29/19 at [address] Amended: Links added.
[2019-04-29 15:00] VITALS: BP 99/51
[2019-04-29 18:00] VITALS: BP 109/64
--- NOTE | 2019-04-29 18:35 | NUR ---
Problems reprioritized. Patient report given, questions answered & plan of care reviewed with Susanne AGUIRRE.
[2019-04-29] MEDS: atorvastatin 10mg tablet PO SCH (20:59)
[2019-04-29] MEDS: insulin glargine (Lantus) pen - multi-dose SQ SCH (21:02)
[2019-04-29 22:00] VITALS: BP 107/60
[2019-04-30 02:00] VITALS: BP 114/67
[2019-04-30] MEDS: normal saline 1000ml 1,000 ML IV SCH (03:55)
[2019-04-30 06:34] LABS: BASOPHILS % (AUTO) 0.8 % (0-1); EOSINOPHILS # (AUTO) 0.1 X10'3 (0-0.9); EOSINOPHILS % (AUTO) 1.7 % (0-6); HEMATOCRIT 32.2 % (35.0-45.0); LYMPHOCYTES # (AUTO) 1.5 X10'3 (1.1-4.8); LYMPHOCYTES % (AUTO) 35.1 % (21-51); MEAN CORPUSCULAR HGB CONC 34.2 g/dL (33.0-36.5); MEAN CORPUSCULAR VOLUME 87.7 FL (78-98); MEAN PLATELET VOLUME 9.6 FL (7.4-10.4); MONOCYTES # (AUTO) 0.3 X10'3 (0-0.9); MONOCYTES % (AUTO) 6.8 % (2-12); NEUTROPHILS # (AUTO) 2.5 X10'3 (1.8-7.7); NEUTROPHILS % (AUTO) 55.6 % (42-75); PLATELET COUNT 120 X10'3 (140-440); RED BLOOD COUNT 3.67 X10'6 (4.20-5.60); RED CELL DISTRIBUTION WIDTH 14.4 % (11.5-14.5); WHITE BLOOD COUNT 4.4 X10'3 (4.5-11.0)
--- NOTE | 2019-04-30 06:34 | NUR ---
Patient in room PCU 3020. I have received report from Susanne AGUIRRE and had the opportunity to ask questions and assume patient care.
[2019-04-30 06:43] LABS: ALBUMIN 2.5 G/DL (3.4-5.0); ANION GAP 9 (8-16); BLOOD UREA NITROGEN 7 MG/DL (7-18); BUN/CREATININE RATIO 13.2 (6.6-38.0); CALCIUM 7.9 MG/DL (8.5-10.1); CHLORIDE 109 MMOL/L (99-107); CREATININE 0.53 MG/DL (0.40-0.90); GLUCOSE 203 MG/DL (70-104); MAGNESIUM 1.5 MG/DL (1.5-2.4); PHOSPHORUS 2.4 MG/DL (2.3-4.5); POTASSIUM 3.7 MMOL/L (3.5-5.1); SODIUM 141 MMOL/L (135-145); TOTAL CARBON DIOXIDE 23.4 MMOL/L (24-32); eGFR > 90 ML/MIN
[2019-04-30] MEDS: albuterol 2.5 MG/3 ML nebule NEB SCH ×2 (06:52→10:30)
[2019-04-30] MEDS: budesonide 0.5mg/2ml UD nebule IH SCH (06:52)
[2019-04-30 07:00] VITALS: BP 100/64
[2019-04-30] MEDS: lisinopril 2.5mg tablet PO SCH (08:00)
[2019-04-30] MEDS: heparin, porcine 5000 units/ml vial SQ SCH (08:00)
[2019-04-30] MEDS: K and/or MAG REPLACEMENT MC SCH (08:00)
[2019-04-30] MEDS: aspirin 81mg tablet.DR PO SCH (08:02)
[2019-04-30] MEDS: HYDROcodone/acetaminophen 5mg/325mg tablet PO PRN (08:03)
[2019-04-30] MEDS: amitriptyline 10mg tablet PO SCH (08:03)
[2019-04-30] MEDS: gabapentin 300mg capsule PO SCH (08:03)
[2019-04-30] MEDS: PARoxetine 20mg tablet PO SCH (08:03)
[2019-04-30] MEDS: insulin Lispro (HumaLOG) vial - multi-dose SQ SCH (08:40)
[2019-04-30] MEDS ORDERED: ONDA4TAB6 PO (10:46)
[2019-04-30 11:00] VITALS: BP 103/69
--- NOTE | 2019-04-30 12:35 | NUR ---
Patient discharged. Reviewed the discharge packet with the patient. Educated and gave her the diabetes survival packet. Went over the medications to continue and discontinue. No new prescriptions. Patient gathered all her belongings. IV was removed. cannula intact. Blood sugar was taken before she left. It was 67. 15g glucose shot was given and blood sugar was retaken:99. Patient was stable and wheeled down where her ride was waiting for her.
--- NOTE | 2019-04-30 14:18 | NUR ---
Pt d/c prior to RD visit; Written DM ed w/ RD contact information mailed to pt home address. Addendum: 04/30/19 at [address] Amended: Links added.
== END 2019-04-30 13:30 | disposition home or self-care (01) | DRG 420 ==
LOC: ER 15:35 → PCU 3S 04-28 01:14
PROVIDERS: ADMIT Internal Medicine; ATTEND Family Medicine
PROC: BW211ZZ Computerized Tomography (CT Scan) of Abdomen and Pelvis using Low Osmolar Contrast (ICD-10-PCS; principal; 2019-04-29)
DX: E10.10 Type 1 diabetes mellitus with ketoacidosis without coma (principal); I11.0 Hypertensive heart disease with heart failure; I95.9 Hypotension, unspecified; E10.42 Type 1 diabetes mellitus with diabetic polyneuropathy; I50.9 Heart failure, unspecified; I48.91 Unspecified atrial fibrillation; E87.5 Hyperkalemia; E78.00 Pure hypercholesterolemia, unspecified; E78.5 Hyperlipidemia, unspecified; F32.9 Major depressive disorder, single episode, unspecified; F41.9 Anxiety disorder, unspecified; G89.29 Other chronic pain; M54.9 Dorsalgia, unspecified; F17.200 Nicotine dependence, unspecified, uncomplicated; J45.909 Unspecified asthma, uncomplicated; K21.9 Gastro-esophageal reflux disease without esophagitis; Z79.4 Long term (current) use of insulin; Z79.51 Long term (current) use of inhaled steroids; Z85.41 Personal history of malignant neoplasm of cervix uteri; Z90.710 Acquired absence of both cervix and uterus; Z88.1 Allergy status to other antibiotic agents; Z88.0 Allergy status to penicillin; Z88.8 Allergy status to other drugs, medicaments and biological substances; Z90.49 Acquired absence of other specified parts of digestive tract; Z80.8 Family history of malignant neoplasm of other organs or systems; Z79.899 Other long term (current) drug therapy
CPT/HCPCS: 36415; 36600; 74177; 80048; 80053; 80305; 82009; 82803; 82948; 83036; 83735; 84100; 84484; 85018; 85025; 87081; 94640; 94760; 96365; 96375; 96376; 99285; G0378; J1644; J1815; J2270; J2405; J3010; J3480; J7030; J7626; Q9967

== ENCOUNTER 2019-05-04 17:58 | Inpatient (IN) | payer MEDICAID ==
[~2019-05-04] VITALS: Ht 172.7 cm; Wt 67.9 kg
[~2019-05-04 17:58] MED LIST changes: +ALEN70TA13; +CALC-880; -COROTSUS OT; +DULO30CA52 PO; +INSU100V11; +LIRA0.6P2 SQ; -ONDA4TAB12 PO; -PHE25R PR; +PREG50CA PO
[2019-05-04 18:31] LABS: BASOPHILS # (AUTO) 0.1 X10'3 (0-0.2); BASOPHILS % (AUTO) 0.5 % (0-1); EOSINOPHILS % (AUTO) 0.1 % (0-6); HEMATOCRIT 48.9 % (35.0-45.0); HEMOGLOBIN 14.8 g/dl (12.0-16.0); LYMPHOCYTES % (AUTO) 5.2 % (21-51); MEAN CORPUSCULAR HEMOGLOBIN 29.2 PG (27.0-31.0); MEAN CORPUSCULAR HGB CONC 30.2 g/dL (33.0-36.5); MEAN CORPUSCULAR VOLUME 96.8 FL (78-98); MEAN PLATELET VOLUME 9.6 FL (7.4-10.4); MONOCYTES # (AUTO) 0.4 X10'3 (0-0.9); MONOCYTES % (AUTO) 2.3 % (2-12); NEUTROPHILS # (AUTO) 16.9 X10'3 (1.8-7.7); NEUTROPHILS % (AUTO) 91.9 % (42-75); PLATELET COUNT 344 X10'3 (140-440); RED BLOOD COUNT 5.06 X10'6 (4.20-5.60); RED CELL DISTRIBUTION WIDTH 16.5 % (11.5-14.5); WHITE BLOOD COUNT 18.4 X10'3 (4.5-11.0)
[2019-05-04 18:47] LABS: PARTIAL THROMBOPLASTIN TIME 31 SECONDS (22-32)
[2019-05-04] MEDS ORDERED: insulin regular, human 100 UNIT in normal saline 100ml IV soln 100 ML IV PRN ×2 (18:50)
[2019-05-04] MEDS ORDERED: insulin regular, human 10 units/0.1 ml syringe IV ONE (18:50)
[2019-05-04] MEDS ORDERED: normal saline 1000ML IV soln IV ONE (18:50)
[2019-05-04 18:54] LABS: ALANINE AMINOTRANSFERASE 209 U/L (12-78); ALBUMIN 3.7 G/DL (3.4-5.0); ALKALINE PHOSPHATASE 163 IU/L (46-116); ASPARTATE AMINO TRANSFERASE 12 U/L (10-37); BILIRUBIN,TOTAL 0.5 MG/DL (0.1-1.0); BLOOD UREA NITROGEN 21 MG/DL (7-18); BUN/CREATININE RATIO 11.1 (6.6-38.0); CALCIUM 9.4 MG/DL (8.5-10.1); CHLORIDE 97 MMOL/L (99-107); SODIUM 135 MMOL/L (135-145); TOTAL PROTEIN 7.3 G/DL (6.4-8.2); eGFR 28 ML/MIN
[2019-05-04 18:57] LABS: ANISOCYTOSIS 1+; PLATELET ESTIMATE NORMAL
[2019-05-04 18:58] LABS: LARGE PLATELETS FEW; POLYCHROMASIA FEW
[2019-05-04] MEDS ORDERED: diltiazem-D5W 125mg/125ml 125 ML IV ONE ×2 (19:00→19:03)
[2019-05-04] MEDS ORDERED: diltiazem 5mg/ml 5ml inj. IV ONE (19:00)
[2019-05-04] MEDS ORDERED: diltiazem-NS 100mg/100ml 100 ML IV ONE (19:04)
[2019-05-04 19:10] LABS: ANION GAP 33 (8-16)
[2019-05-04 19:25] LABS: GLUCOSE 602 MG/DL (70-104)
[2019-05-04 19:26] LABS: POTASSIUM 6.3 MMOL/L (3.5-5.1)
[2019-05-04 19:29] LABS: CLARITY,URINE CLEAR (Clear); COLOR,URINE YELLOW (Yellow); GLUCOSE, URINE >=1000 mg/dl (Neg); KETONES,URINE >=80 mg/dl (Neg); LEUKOCYTE ESTERASE ,URINE NEGATIVE (Neg); NITRITES, URINE NEGATIVE (Neg); OCCULT BLOOD,URINE SMALL (Neg); PH,URINE 5.5 (4.8-8.0); PROTEIN,URINE 30 mg/dl (Neg); UROBILINOGEN,URINE 0.2 E.U/dL (0.2-1.0)
--- NOTE | 2019-05-04 19:29 | NUR ---
Dr espinoza at bedside, RT now at bedside for stat abg, critical glucose, K and Co2. Calcium Chloride 1 amp stat given
[2019-05-04] MEDS ORDERED: calcium chloride 100 MG/1 ML inj IV ONE (19:30)
[2019-05-04 19:38] LABS: UA COLLECTION TYPE FOLEY CATH
[2019-05-04 19:39] LABS: BACTERIA,URINE FEW /HPF (Neg); RBC,URINE 0-2 /HPF (0-2); SQUAMOUS EPITHELIAL CELL,UR FEW /LPF (FEW); WBC,URINE 0-4 /HPF (0-4)
[2019-05-04 19:40] LABS: HYALINE CASTS 0-3 /LPF (NEGATIVE)
[2019-05-04] MEDS ORDERED: ondansetron/PF 4mg/2ml inj IV ONE (19:45)
[2019-05-04] MEDS ORDERED: morphine 4 MG/ML inj SYRINge IV ONE (19:45)
[2019-05-04 19:46] LABS: ABG BASE EXCESS -30.3 mmol/L (-2.0-3.0); ABG HCO3 1.8 mmol/L (22.0-26.0); ABG OXYGEN SATURATION 98.1 % (95-98); ABG PH (T) 6.894 (7.350-7.450); ALLEN'S TEST Positive; FCOHb 0.3 % (0.5-1.5); FMetHb 0.4 % (0.3-1.12); FO2Hb 97.4 % (94-100); RESPIRATORY RATE (OBSERVED) 32 b/min
--- NOTE | 2019-05-04 19:50 | NUR ---
HOLD CALVIN CASAS PER MARITA SHEPARD
[2019-05-04] MEDS ORDERED: metoprolol tartrate 1mg/ml inj IV ONE (20:20)
[2019-05-04] MEDS ORDERED: magnesium 4gm in 100ml NS 100 ML IV PRN (20:25)
[2019-05-04] MEDS ORDERED: magnesium 2GM in 50ml NS 50 ML IV PRN (20:25)
[2019-05-04] MEDS ORDERED: potassium Cl 20 mEq SR tablet PO PRN ×3 (20:25→20:35)
[2019-05-04] MEDS ORDERED: potassium CL 10mEq/100ml bag 100 ML IV PRN ×4 (20:25→20:35)
[2019-05-04] MEDS ORDERED: acetaminophen 325mg tablet PO PRN ×2 (20:25)
[2019-05-04] MEDS: K, MAG and/or Phos replacement - Verify level? MC SCH (20:25)
[2019-05-04] MEDS ORDERED: magnesium Cl slow-release 64mg tablet PO PRN (20:25)
[2019-05-04] MEDS ORDERED: diazepam 5mg tablet PO PRN (20:30)
[2019-05-04] MEDS ORDERED: sodium bicarbonate (8.4%) inj. 50 MEQ in dextrose 5% water 500ml 250 ML IV PRN (20:31)
[2019-05-04] MEDS ORDERED: potassium CL 20mEq in D5-1/2NS 1,000 ML IV PRN ×2 (20:31→23:11)
[2019-05-04] MEDS ORDERED: insulin regular, DKA only 100 UNIT in normal saline 100ml IV soln 99 ML IV SCH ×2 (20:31)
[2019-05-04] MEDS: normal saline 1000ml 1,000 ML IV SCH ×2 (20:47→23:57)
--- NOTE | 2019-05-04 20:49 | NUR ---
ATTEMPTED TO CALL REPORT, ICU REFUSED AT THIS TIME, WILL CALL BACK IN 10 MIN
[2019-05-04] MEDS: atorvastatin 10mg tablet PO SCH (21:00)
[2019-05-04] MEDS: gabapentin 300mg capsule PO SCH (21:00)
--- NOTE | 2019-05-04 21:02 | NUR ---
I have received report from Gemma AGUIRRE and had the opportunity to ask questions. Will assume patient care upon arrival to unit in room 2040, admission from ER.
[2019-05-04 21:39] VITALS: BP 100/42
--- NOTE | 2019-05-04 21:39 | NUR ---
Pt arrived on unit from ER via gurney, transferred to bed via slide board, monitoring applied, pt in SVT rate 160-170s, Insulin gtt infusing at 5units/hr, NS at 250mls/hr, via EJ PIV 20g. See interventions and eMAR for more information. Will continue to monitor.
[2019-05-04] MEDS: diltiazem-NS 100mg/100ml 100 ML IV SCH (21:41)
--- NOTE | 2019-05-04 21:41 | NUR ---
pt converted from afib to sinus.
[2019-05-04 21:53] LABS: ALBUMIN 3.4 G/DL (3.4-5.0); BLOOD UREA NITROGEN 19 MG/DL (7-18); BUN/CREATININE RATIO 12.7 (6.6-38.0); CALCIUM 9.6 MG/DL (8.5-10.1); CHLORIDE 106 MMOL/L (99-107); GLUCOSE 364 MG/DL (70-104); SODIUM 140 MMOL/L (135-145); eGFR 37 ML/MIN
[2019-05-04 21:55] LABS: POTASSIUM 5.3 MMOL/L (3.5-5.1)
[2019-05-04 21:58] LABS: TOTAL CARBON DIOXIDE < 5 MMOL/L (24-32)
[2019-05-04 22:00] VITALS: BP 79/58
[2019-05-04] MEDS: sodium bicarbonate (8.4%) inj. 100 MEQ in dextrose 5% water 500ml 500 ML IV PRN (22:06)
[2019-05-04 22:10] LABS: ANION GAP 29 (8-16)
[2019-05-04] MEDS ORDERED: sodium bicarbonate (8.4%) 1 mEq/ml syringe IV ONE (22:30)
[2019-05-04 23:00] VITALS: BP 90/46
[2019-05-04] MEDS: albuterol 2.5 MG/3 ML nebule NEB SCH (23:11)
[2019-05-04] MEDS ORDERED: dextrose 5%-1/2 normal saline 1,000 ML IV PRN (23:15)
[2019-05-05] VITALS (24 sets, daily range): BP systolic 80–122; BP diastolic 43–70
[2019-05-05 01:18] LABS: ALANINE AMINOTRANSFERASE 160 U/L (12-78); ALBUMIN 2.8 G/DL (3.4-5.0); ALKALINE PHOSPHATASE 116 IU/L (46-116); ANION GAP 17 (8-16); ASPARTATE AMINO TRANSFERASE 9 U/L (10-37); BILIRUBIN,TOTAL 0.4 MG/DL (0.1-1.0); BLOOD UREA NITROGEN 16 MG/DL (7-18); BUN/CREATININE RATIO 11.4 (6.6-38.0); CALCIUM 8.8 MG/DL (8.5-10.1); CHLORIDE 109 MMOL/L (99-107); GLUCOSE 240 MG/DL (70-104); POTASSIUM 3.9 MMOL/L (3.5-5.1); SODIUM 143 MMOL/L (135-145); TOTAL CARBON DIOXIDE 17.2 MMOL/L (24-32); TOTAL PROTEIN 5.6 G/DL (6.4-8.2); eGFR 40 ML/MIN
[2019-05-05 01:21] LABS: MAGNESIUM 1.6 MG/DL (1.5-2.4); PHOSPHORUS 2.5 MG/DL (2.3-4.5)
[2019-05-05] MEDS: sodium bicarbonate (8.4%) inj. 100 MEQ in dextrose 5% water 500ml 500 ML IV PRN (01:25)
[2019-05-05 02:25] LABS: ABG BASE EXCESS -7.2 mmol/L (-2.0-3.0); ABG HCO3 17.4 mmol/L (22.0-26.0); ABG OXYGEN SATURATION 97.6 % (95-98); ABG PCO2 (T) 32.1 mmHg (35.0-45.0); ABG PH (T) 7.351 (7.350-7.450); ABG PO2 (T) 87.5 mmHg (83-108); ALLEN'S TEST Positive; FCOHb 0.3 % (0.5-1.5); FMetHb 0.2 % (0.3-1.12); FO2Hb 97.1 % (94-100); PATIENT TEMPERATURE 36.7; RESPIRATORY RATE (OBSERVED) 12 b/min; TOTAL HEMOGLOBIN 12.1 G/dl (12.0-16.0)
[2019-05-05 03:03] LABS: BASOPHILS # (AUTO) 0.1 X10'3 (0-0.2); BASOPHILS % (AUTO) 0.4 % (0-1); EOSINOPHILS % (AUTO) 0 % (0-6); HEMATOCRIT 37.8 % (35.0-45.0); HEMOGLOBIN 12.2 g/dl (12.0-16.0); LYMPHOCYTES # (AUTO) 1.6 X10'3 (1.1-4.8); LYMPHOCYTES % (AUTO) 11.3 % (21-51); MEAN CORPUSCULAR HGB CONC 32.4 g/dL (33.0-36.5); MEAN CORPUSCULAR VOLUME 89.5 FL (78-98); MEAN PLATELET VOLUME 8.8 FL (7.4-10.4); MONOCYTES # (AUTO) 0.9 X10'3 (0-0.9); MONOCYTES % (AUTO) 6.4 % (2-12); NEUTROPHILS # (AUTO) 11.4 X10'3 (1.8-7.7); NEUTROPHILS % (AUTO) 81.9 % (42-75); PLATELET COUNT 205 X10'3 (140-440); RED BLOOD COUNT 4.22 X10'6 (4.20-5.60)
[2019-05-05] MEDS ORDERED: potassium CL 20mEq in D5-1/2NS 1,000 ML IV PRN (03:25)
--- NOTE | 2019-05-05 03:30 | NUR ---
Called Jabari Cedillo PRINCIPAL ARCHAEOLOGIST regarding pts MAP of 47, orders received for 500ml of albumin 5%.
[2019-05-05] MEDS ORDERED: albumin (Human) 5% 250ml 250 ML IV ONE ×2 (03:40)
[2019-05-05] MEDS: normal saline 1000ml 1,000 ML IV SCH (04:31)
--- NOTE | 2019-05-05 06:24 | NUR ---
Problems reprioritized. Patient report given, questions answered & plan of care reviewed with Jade AGUIRRE.
--- NOTE | 2019-05-05 06:30 | NUR ---
Patient in room ICU 2040. I have received report from retail shift leader RN and had the opportunity to ask questions and assume patient care.
[2019-05-05 07:20] LABS: ALBUMIN 2.9 G/DL (3.4-5.0); ANION GAP 8 (8-16); BLOOD UREA NITROGEN 13 MG/DL (7-18); BUN/CREATININE RATIO 11.8 (6.6-38.0); CALCIUM 8.4 MG/DL (8.5-10.1); CHLORIDE 113 MMOL/L (99-107); GLUCOSE 97 MG/DL (70-104); POTASSIUM 3.3 MMOL/L (3.5-5.1); SODIUM 144 MMOL/L (135-145); TOTAL CARBON DIOXIDE 23.1 MMOL/L (24-32); eGFR 53 ML/MIN
[2019-05-05] MEDS: albuterol 2.5 MG/3 ML nebule NEB SCH ×3 (07:42→20:37)
[2019-05-05] MEDS: budesonide 0.5mg/2ml UD nebule IH SCH ×2 (07:43→20:37)
[2019-05-05] MEDS: K and/or MAG REPLACEMENT MC SCH (08:00)
[2019-05-05] MEDS: K, MAG and/or Phos replacement - Verify level? MC SCH (08:00)
--- NOTE | 2019-05-05 08:00 | NUR ---
called placed to dr middleton re blood sugars, orders received and implemented
[2019-05-05] MEDS: amitriptyline 10mg tablet PO SCH ×3 (08:03→20:38)
[2019-05-05] MEDS: potassium Cl 20 mEq SR tablet PO PRN ×3 (08:04→16:57)
[2019-05-05] MEDS: PARoxetine 20mg tablet PO SCH (08:04)
[2019-05-05] MEDS: aspirin 81mg tablet.DR PO SCH (08:04)
[2019-05-05] MEDS: gabapentin 300mg capsule PO SCH ×4 (08:04→20:38)
[2019-05-05] MEDS ORDERED: glucagon, human recombinant 1mg kit SUBCUT PRN (09:40)
[2019-05-05] MEDS ORDERED: MESSAGE TO PHARMACY PO ONE (09:40)
[2019-05-05] MEDS ORDERED: dextrose ORAL solution 15 GM/59 ML bottle PO PRN (09:40)
[2019-05-05] MEDS ORDERED: dextrose 50%-water 50ml dispensing syringe IV PRN ×2 (09:40)
[2019-05-05] MEDS ORDERED: POTA10TA15 PO (10:54)
[2019-05-05] MEDS ORDERED: NAPR-56 PO (11:00)
[2019-05-05] MEDS ORDERED: CALC1TAB PO (11:06)
[2019-05-05] MEDS ORDERED: LACT1CAP26 PO (11:07)
[2019-05-05] MEDS ORDERED: HYDR25TA4 PO (11:09)
[2019-05-05] MEDS ORDERED: OMEP20CA11 PO (11:10)
[2019-05-05] MEDS ORDERED: Potassium Cl inj 40 MEQ in sodium chloride 0.45% 1,000 ML IV SCH (11:14)
[2019-05-05 11:47] LABS: CLARITY,URINE CLEAR (Clear); COLOR,URINE YELLOW (Yellow); GLUCOSE, URINE NEGATIVE (Neg); KETONES,URINE 40 mg/dl (Neg); LEUKOCYTE ESTERASE ,URINE NEGATIVE (Neg); NITRITES, URINE NEGATIVE (Neg); OCCULT BLOOD,URINE SMALL (Neg); PH,URINE 5.5 (4.8-8.0); PROTEIN,URINE TRACE mg/dl (Neg); UROBILINOGEN,URINE 0.2 E.U/dL (0.2-1.0)
[2019-05-05] MEDS ORDERED: diazepam 2mg tablet PO PRN (11:50)
[2019-05-05 12:03] LABS: UA COLLECTION TYPE NON-SPECIFIED
[2019-05-05 12:05] LABS: BACTERIA,URINE NONE SEEN /HPF (Neg); MUCUS STRANDS NONE SEEN /LPF (Neg); RBC,URINE 0-2 /HPF (0-2); SQUAMOUS EPITHELIAL CELL,UR NONE SEEN /LPF (FEW); URIC ACID CRYSTALS 3+ /HPF (NEGATIVE); WBC,URINE 0-4 /HPF (0-4)
[2019-05-05] MEDS: CefTRIAXone 2gm/D5W 50ml 50 ML IV SCH (13:39)
--- NOTE | 2019-05-05 14:01 | NUR ---
Ivana/DM consult: Patient with multiple previous admissions for hyperglycemia and DKA. History of type 1 DM, A1c is 9.1 on 04/28/19 No documented PO yet, usual appetite is good. No documented PO intake yet. Patient seen multiple times for written and verbal DM education. Currently fatigued, not able for another verbal review of DM ed at this time. Per MD note pt reports her insulin pump had stopped working, reports taking regular insulin and lantus HS. Currently 63.9 kg on bedscale. Previous documented weight in April has no weight method, was likely pt stated at 57.2 kg, documented bedscale weight on 10/28 was 73.8 kg on bedscale. Patient is down 22 lbs, 13%, in 8 months since October. Pt has some missing teeth, usually requests chopped meats. Without PO intake, not enough information to provide full assessment of malnutrition, will follow up tomorrow. Recommend: 1. Continue carb controlled diet, chopped meats, d/w dietary 2. Provide written DM education with verbal review when able 3. Wt per rx Addendum: 05/05/19 at [address] Amended: Links added.
[2019-05-05] MEDS: ondansetron/PF 4mg/2ml inj IV PRN ×2 (14:16→20:51)
[2019-05-05] MEDS: insulin Lispro (HumaLOG) vial - multi-dose SQ SCH ×2 (14:24→19:39)
--- NOTE | 2019-05-05 18:15 | NUR ---
Patient in room ICU 2040. I have received report from Jade AGUIRRE and had the opportunity to ask questions and assume patient care. Pt resting in bed on room air, dinner tray at bedside, HOB greater than 30 degrees. Call light in reach. IV fluids infusing per provider orders. Will continue to monitor.
[2019-05-05 18:33] LABS: ALANINE AMINOTRANSFERASE 121 U/L (12-78); ALBUMIN 2.9 G/DL (3.4-5.0); ALBUMIN/GLOBULIN RATIO 1.2 (1.1-1.5); ALKALINE PHOSPHATASE 96 IU/L (46-116); ANION GAP 16 (8-16); ASPARTATE AMINO TRANSFERASE 17 U/L (10-37); BILIRUBIN,TOTAL 0.3 MG/DL (0.1-1.0); BLOOD UREA NITROGEN 10 MG/DL (7-18); BUN/CREATININE RATIO 10.8 (6.6-38.0); CALCIUM 8.4 MG/DL (8.5-10.1); CHLORIDE 107 MMOL/L (99-107); CREATININE 0.93 MG/DL (0.40-0.90); GLUCOSE 197 MG/DL (70-104); MAGNESIUM 1.4 MG/DL (1.5-2.4); PHOSPHORUS 1.7 MG/DL (2.3-4.5); POTASSIUM 4.6 MMOL/L (3.5-5.1); SODIUM 139 MMOL/L (135-145); TOTAL CARBON DIOXIDE 16.5 MMOL/L (24-32); TOTAL PROTEIN 5.3 G/DL (6.4-8.2); eGFR 64 ML/MIN
[2019-05-05] MEDS: diltiazem-NS 100mg/100ml 100 ML IV SCH (19:35)
--- NOTE | 2019-05-05 20:20 | NUR ---
Spoke with Jabari Cedillo HIM ASSISTANT regarding current IV fluids of 0.45% NS with 40mEq of potassium and current potassium of 4.6. Orders received to change fluids to 0.45% NS.
[2019-05-05] MEDS: lactobacillus rhamnosus 10,000 MMU CELLS/CAPSULE PO SCH (20:38)
[2019-05-05] MEDS: sodium chloride 0.45% 1,000 ML IV SCH (20:38)
[2019-05-05] MEDS: atorvastatin 10mg tablet PO SCH (20:38)
[2019-05-05] MEDS ORDERED: insulin glargine (Lantus) pen - multi-dose SQ SCH (21:00)
[2019-05-06] VITALS (15 sets, daily range): BP systolic 105–131; BP diastolic 62–82
[2019-05-06] MEDS: ondansetron/PF 4mg/2ml inj IV PRN ×4 (02:54→23:01)
[2019-05-06] MEDS: sodium chloride 0.45% 1,000 ML IV SCH ×2 (04:49→11:50)
[2019-05-06 06:21] LABS: ALANINE AMINOTRANSFERASE 111 U/L (12-78); ALBUMIN 2.8 G/DL (3.4-5.0); ALBUMIN/GLOBULIN RATIO 1.2 (1.1-1.5); ALKALINE PHOSPHATASE 96 IU/L (46-116); ANION GAP 8 (8-16); ASPARTATE AMINO TRANSFERASE 13 U/L (10-37); BILIRUBIN,TOTAL 0.3 MG/DL (0.1-1.0); BLOOD UREA NITROGEN 5 MG/DL (7-18); CALCIUM 8.4 MG/DL (8.5-10.1); CHLORIDE 108 MMOL/L (99-107); CREATININE 0.84 MG/DL (0.40-0.90); GLUCOSE 87 MG/DL (70-104); POTASSIUM 3.6 MMOL/L (3.5-5.1); SODIUM 140 MMOL/L (135-145); TOTAL CARBON DIOXIDE 23.7 MMOL/L (24-32); TOTAL PROTEIN 5.2 G/DL (6.4-8.2); eGFR 72 ML/MIN
[2019-05-06 06:23] LABS: MAGNESIUM 1.5 MG/DL (1.5-2.4); PHOSPHORUS 1.7 MG/DL (2.3-4.5)
--- NOTE | 2019-05-06 06:40 | NUR ---
Problems reprioritized. Patient report given, questions answered & plan of care reviewed with Lili RN.
--- NOTE | 2019-05-06 06:43 | NUR ---
Patient in room ICU 2040. I have received report from CARLA Barrera and had the opportunity to ask questions and assume patient care.
[2019-05-06] MEDS: dextrose ORAL solution 15 GM/59 ML bottle PO PRN (07:10)
[2019-05-06 07:17] LABS: BASOPHILS % (AUTO) 0.6 % (0-1); EOSINOPHILS # (AUTO) 0.1 X10'3 (0-0.9); EOSINOPHILS % (AUTO) 1.2 % (0-6); HEMOGLOBIN 11.1 g/dl (12.0-16.0); LYMPHOCYTES # (AUTO) 2.6 X10'3 (1.1-4.8); LYMPHOCYTES % (AUTO) 40.5 % (21-51); MEAN CORPUSCULAR HEMOGLOBIN 29.4 PG (27.0-31.0); MEAN CORPUSCULAR HGB CONC 33.7 g/dL (33.0-36.5); MEAN CORPUSCULAR VOLUME 87.4 FL (78-98); MEAN PLATELET VOLUME 8.5 FL (7.4-10.4); MONOCYTES # (AUTO) 0.4 X10'3 (0-0.9); MONOCYTES % (AUTO) 6.6 % (2-12); NEUTROPHILS # (AUTO) 3.2 X10'3 (1.8-7.7); NEUTROPHILS % (AUTO) 51.1 % (42-75); PLATELET COUNT 154 X10'3 (140-440); RED BLOOD COUNT 3.78 X10'6 (4.20-5.60); RED CELL DISTRIBUTION WIDTH 14.5 % (11.5-14.5); WHITE BLOOD COUNT 6.3 X10'3 (4.5-11.0)
[2019-05-06] MEDS: K and/or MAG REPLACEMENT MC SCH (08:00)
[2019-05-06] MEDS: K, MAG and/or Phos replacement - Verify level? MC SCH (08:00)
[2019-05-06] MEDS: albuterol 2.5 MG/3 ML nebule NEB SCH ×4 (08:08→19:22)
[2019-05-06] MEDS: budesonide 0.5mg/2ml UD nebule IH SCH ×2 (08:09→19:22)
[2019-05-06] MEDS: CefTRIAXone 2gm/D5W 50ml 50 ML IV SCH (08:24)
[2019-05-06] MEDS: gabapentin 300mg capsule PO SCH ×3 (08:25→20:31)
[2019-05-06] MEDS: aspirin 81mg tablet.DR PO SCH (08:25)
[2019-05-06] MEDS: PARoxetine 20mg tablet PO SCH (08:25)
[2019-05-06] MEDS: lactobacillus rhamnosus 10,000 MMU CELLS/CAPSULE PO SCH ×2 (08:25→20:31)
--- NOTE | 2019-05-06 09:00 | NUR ---
recieved report from RN
--- NOTE | 2019-05-06 09:45 | NUR ---
Received report from JEAN PIERRE Pacheco.
--- NOTE | 2019-05-06 09:45 | NUR ---
report given to avtar RN PCU
[2019-05-06] MEDS: HYDROcodone/acetaminophen 10/325mg tab PO PRN ×2 (09:53→20:34)
--- NOTE | 2019-05-06 10:15 | NUR ---
Patient received in room 3012B. Resting in nad.
[2019-05-06] MEDS: insulin Lispro (HumaLOG) vial - multi-dose SQ SCH ×2 (11:46→17:14)
--- NOTE | 2019-05-06 12:44 | NUR ---
F/u: Pt seen by RD for written/verbal DM ed w/ RD contact information provided. Pt reports following w/ CDE Q6 weeks for DM management. RD encouraged establishing w/ obstetrics specialist. Pt states pump woodworking machine setter calibrates pump for her; RD encouraged pt to d/w CDE regarding calibration methods. Pt reports never runs out of insulin but pump stopped working few days prior and is now on PO DM management until new pump arrives. Pt dislikes lettuce r/t dental state; agrees to cottage cheese w/ fruit at [employer] and vanilla/blueberry khmer yogurt w/ dinners. Dietary notified of preferences. At this time pt has no visible muscle fat wasting and initial PO likely r/t DX symptoms. RD provided DM-friendly supplement options and advised pt that wt gain will be impossible without GLU management since pt was concerned about wt on previous admit. Will monitor for additional protein needs. Recommend: 1. Continue carb controlled diet, chopped meats, d/w dietary 2. honor pt food preferences; see above note 3. monitor for ONS needs 4. Wt per rx Addendum: 05/06/19 at [address] Amended: Links added.
--- NOTE | 2019-05-06 16:30 | NUR ---
BG 317. Dr. Oliver called to clarify if we are to give Insulin now or wait for the carb count. He advised to treat now. Also advised to call the nurse practicioner, not him.
--- NOTE | 2019-05-06 17:29 | NUR ---
Problems re-prioritized. Outcomes reviewed and updated.
[2019-05-06 18:05] LABS: ALANINE AMINOTRANSFERASE 101 U/L (12-78); ALBUMIN 2.7 G/DL (3.4-5.0); ALBUMIN/GLOBULIN RATIO 1.1 (1.1-1.5); ALKALINE PHOSPHATASE 95 IU/L (46-116); ANION GAP 9 (8-16); ASPARTATE AMINO TRANSFERASE 20 U/L (10-37); BILIRUBIN,TOTAL 0.2 MG/DL (0.1-1.0); BLOOD UREA NITROGEN 5 MG/DL (7-18); BUN/CREATININE RATIO 5.4 (6.6-38.0); CALCIUM 7.9 MG/DL (8.5-10.1); CHLORIDE 101 MMOL/L (99-107); CREATININE 0.92 MG/DL (0.40-0.90); GLUCOSE 364 MG/DL (70-104); MAGNESIUM 1.4 MG/DL (1.5-2.4); PHOSPHORUS 2.7 MG/DL (2.3-4.5); POTASSIUM 3.8 MMOL/L (3.5-5.1); SODIUM 134 MMOL/L (135-145); TOTAL CARBON DIOXIDE 23.6 MMOL/L (24-32); TOTAL PROTEIN 5.2 G/DL (6.4-8.2); eGFR 65 ML/MIN
--- NOTE | 2019-05-06 18:15 | NUR ---
Problems reprioritized. Patient report given, questions answered & plan of care reviewed with CARLA Stark.
--- NOTE | 2019-05-06 18:15 | NUR ---
Patient in room PCU 3012. I have received report from Dang AGUIRRE and had the opportunity to ask questions and assume patient care. Checked on patient, she is eating and has no immediate needs. Will continue to monitor.
[2019-05-06] MEDS ORDERED: ALEN70TA13 PO (18:32)
[2019-05-06] MEDS: insulin glargine (Lantus) pen - multi-dose SQ SCH (20:29)
[2019-05-06] MEDS: atorvastatin 10mg tablet PO SCH (20:30)
[2019-05-06] MEDS: amitriptyline 10mg tablet PO SCH (20:31)
[2019-05-07] VITALS (7 sets, daily range): BP systolic 104–131; BP diastolic 78–88
[2019-05-07] MEDS: sodium chloride 0.45% 1,000 ML IV SCH ×4 (00:15→19:50)
[2019-05-07] MEDS: HYDROcodone/acetaminophen 10/325mg tab PO PRN ×2 (02:52→19:23)
--- NOTE | 2019-05-07 06:05 | NUR ---
Patient in room PCU 3012. I have received report from Landry and had the opportunity to ask questions and assume patient care.
[2019-05-07 06:14] LABS: BASOPHILS % (AUTO) 0.6 % (0-1); EOSINOPHILS # (AUTO) 0.1 X10'3 (0-0.9); LYMPHOCYTES # (AUTO) 1.9 X10'3 (1.1-4.8); LYMPHOCYTES % (AUTO) 44.9 % (21-51); MEAN CORPUSCULAR HEMOGLOBIN 29.4 PG (27.0-31.0); MEAN CORPUSCULAR HGB CONC 33.4 g/dL (33.0-36.5); MEAN CORPUSCULAR VOLUME 87.9 FL (78-98); MEAN PLATELET VOLUME 8.8 FL (7.4-10.4); MONOCYTES # (AUTO) 0.3 X10'3 (0-0.9); MONOCYTES % (AUTO) 7.6 % (2-12); NEUTROPHILS # (AUTO) 1.9 X10'3 (1.8-7.7); NEUTROPHILS % (AUTO) 44.9 % (42-75); PLATELET COUNT 136 X10'3 (140-440); RED BLOOD COUNT 3.75 X10'6 (4.20-5.60); WHITE BLOOD COUNT 4.3 X10'3 (4.5-11.0)
[2019-05-07 06:25] LABS: ALANINE AMINOTRANSFERASE 89 U/L (12-78); ALBUMIN 2.7 G/DL (3.4-5.0); ALBUMIN/GLOBULIN RATIO 1.2 (1.1-1.5); ALKALINE PHOSPHATASE 92 IU/L (46-116); ANION GAP 7 (8-16); ASPARTATE AMINO TRANSFERASE 20 U/L (10-37); BILIRUBIN,TOTAL 0.4 MG/DL (0.1-1.0); BLOOD UREA NITROGEN 6 MG/DL (7-18); BUN/CREATININE RATIO 10.7 (6.6-38.0); CHLORIDE 106 MMOL/L (99-107); CREATININE 0.56 MG/DL (0.40-0.90); GLUCOSE 214 MG/DL (70-104); MAGNESIUM 1.5 MG/DL (1.5-2.4); POTASSIUM 3.4 MMOL/L (3.5-5.1); SODIUM 139 MMOL/L (135-145); TOTAL CARBON DIOXIDE 26.3 MMOL/L (24-32); eGFR > 90 ML/MIN
--- NOTE | 2019-05-07 06:38 | NUR ---
Problems reprioritized. Patient report given, questions answered & plan of care reviewed with Dang AGUIRRE.
[2019-05-07] MEDS: CefTRIAXone 2gm/D5W 50ml 50 ML IV SCH (07:28)
[2019-05-07] MEDS: aspirin 81mg tablet.DR PO SCH (07:28)
[2019-05-07] MEDS: PARoxetine 20mg tablet PO SCH (07:28)
[2019-05-07] MEDS: lactobacillus rhamnosus 10,000 MMU CELLS/CAPSULE PO SCH ×2 (07:28→20:43)
[2019-05-07] MEDS: potassium Cl 20 mEq SR tablet PO PRN ×3 (07:29→15:40)
[2019-05-07] MEDS: ondansetron/PF 4mg/2ml inj IV PRN ×2 (07:29→19:18)
[2019-05-07] MEDS: gabapentin 300mg capsule PO SCH ×3 (07:29→20:44)
[2019-05-07] MEDS: K, MAG and/or Phos replacement - Verify level? MC SCH (07:40)
[2019-05-07 07:49] LABS: ABG PCO2 (T) 10.1 mmHg (35.0-45.0)
[2019-05-07] MEDS: budesonide 0.5mg/2ml UD nebule IH SCH ×2 (08:00→19:38)
[2019-05-07] MEDS: albuterol 2.5 MG/3 ML nebule NEB SCH ×4 (08:27→19:38)
[2019-05-07] MEDS: insulin Lispro (HumaLOG) vial - multi-dose SQ SCH ×4 (08:34→21:01)
[2019-05-07] MEDS ORDERED: non-formulary drug (Alendronate Sodium 1 TABLET) PO SCH (09:25)
--- NOTE | 2019-05-07 09:51 | NUR ---
Problem list re-prioritized. Outcomes reviewed and updated.
--- NOTE | 2019-05-07 15:01 | NUR ---
Spoke with patient per Marie, wrapper caser request. Patient does manage her insulin pump at home and has all the tubing etc. She can replace tubing, cartridges, etc and knows how to work the pump. She was given the phone number of the company that makes the pump so that she can have them overnight another one to her. Advised to find out if they needed the old pump back. Will check with patient in a little bit.
[2019-05-07 18:45] LABS: ALANINE AMINOTRANSFERASE 95 U/L (12-78); ALBUMIN/GLOBULIN RATIO 1.2 (1.1-1.5); ALKALINE PHOSPHATASE 107 IU/L (46-116); ANION GAP 8 (8-16); ASPARTATE AMINO TRANSFERASE 29 U/L (10-37); BILIRUBIN,TOTAL 0.3 MG/DL (0.1-1.0); BLOOD UREA NITROGEN 6 MG/DL (7-18); BUN/CREATININE RATIO 8.3 (6.6-38.0); CALCIUM 8.1 MG/DL (8.5-10.1); CHLORIDE 101 MMOL/L (99-107); CREATININE 0.72 MG/DL (0.40-0.90); GLUCOSE 377 MG/DL (70-104); POTASSIUM 4.1 MMOL/L (3.5-5.1); SODIUM 137 MMOL/L (135-145); TOTAL CARBON DIOXIDE 27.7 MMOL/L (24-32); TOTAL PROTEIN 5.5 G/DL (6.4-8.2); eGFR 86 ML/MIN
--- NOTE | 2019-05-07 18:45 | NUR ---
Patient in room PCU 3012. I have received report from Hu AGUIRRE and had the opportunity to ask questions and assume patient care.
[2019-05-07 18:46] LABS: MAGNESIUM 1.5 MG/DL (1.5-2.4); PHOSPHORUS 3.5 MG/DL (2.3-4.5)
--- NOTE | 2019-05-07 19:00 | NUR ---
pATIENTS STATES THAT NARINDER ANDRADE TODAY AT 2.52, SHE HAD FALLEN TO SLEEP FOR REASSEESSMENT TIME.
[2019-05-07] MEDS: calcium carbonate/vitamin D3 tablet PO SCH (20:43)
[2019-05-07] MEDS: amitriptyline 10mg tablet PO SCH (20:44)
[2019-05-07] MEDS: atorvastatin 10mg tablet PO SCH (20:44)
[2019-05-07] MEDS: insulin glargine (Lantus) pen - multi-dose SQ SCH (20:59)
[2019-05-08] MEDS: sodium chloride 0.45% 1,000 ML IV SCH ×3 (00:38→19:11)
[2019-05-08 02:00] VITALS: BP 127/75
--- NOTE | 2019-05-08 04:08 | NUR ---
Right EJ does not draw.
[2019-05-08] MEDS: HYDROcodone/acetaminophen 10/325mg tab PO PRN ×2 (04:20→19:14)
[2019-05-08 06:00] VITALS: BP 140/76
--- NOTE | 2019-05-08 06:35 | NUR ---
Patient in room PCU 3012. I have received report from Fernanda AGUIRRE and had the opportunity to ask questions and assume patient care. Pt is awake in bed, all needs met at this time.
--- NOTE | 2019-05-08 06:45 | NUR ---
Problems reprioritized. Patient report given, questions answered & plan of care reviewed with Jacinta AGUIRRE and Erika AGUIRRE.
[2019-05-08 06:52] LABS: BASOPHILS % (AUTO) 1.3 % (0-1); EOSINOPHILS # (AUTO) 0.1 X10'3 (0-0.9); EOSINOPHILS % (AUTO) 2.8 % (0-6); HEMATOCRIT 34.2 % (35.0-45.0); HEMOGLOBIN 11.3 g/dl (12.0-16.0); LYMPHOCYTES # (AUTO) 1.2 X10'3 (1.1-4.8); LYMPHOCYTES % (AUTO) 38.5 % (21-51); MEAN CORPUSCULAR HEMOGLOBIN 29.1 PG (27.0-31.0); MEAN CORPUSCULAR HGB CONC 32.9 g/dL (33.0-36.5); MEAN CORPUSCULAR VOLUME 88.3 FL (78-98); MEAN PLATELET VOLUME 8.6 FL (7.4-10.4); MONOCYTES # (AUTO) 0.3 X10'3 (0-0.9); MONOCYTES % (AUTO) 10.4 % (2-12); NEUTROPHILS # (AUTO) 1.4 X10'3 (1.8-7.7); PLATELET COUNT 137 X10'3 (140-440); RED BLOOD COUNT 3.87 X10'6 (4.20-5.60); RED CELL DISTRIBUTION WIDTH 14.1 % (11.5-14.5)
[2019-05-08 07:06] LABS: ALANINE AMINOTRANSFERASE 90 U/L (12-78); ALBUMIN/GLOBULIN RATIO 1.1 (1.1-1.5); ALKALINE PHOSPHATASE 105 IU/L (46-116); ANION GAP 4 (8-16); ASPARTATE AMINO TRANSFERASE 23 U/L (10-37); BILIRUBIN,TOTAL 0.5 MG/DL (0.1-1.0); BLOOD UREA NITROGEN 5 MG/DL (7-18); BUN/CREATININE RATIO 8.3 (6.6-38.0); CALCIUM 8.7 MG/DL (8.5-10.1); CHLORIDE 103 MMOL/L (99-107); GLUCOSE 149 MG/DL (70-104); MAGNESIUM 1.6 MG/DL (1.5-2.4); PHOSPHORUS 3.8 MG/DL (2.3-4.5); POTASSIUM 4.1 MMOL/L (3.5-5.1); SODIUM 141 MMOL/L (135-145); TOTAL CARBON DIOXIDE 33.6 MMOL/L (24-32); TOTAL PROTEIN 5.7 G/DL (6.4-8.2); eGFR > 90 ML/MIN
[2019-05-08] MEDS ORDERED: furosemide 10 MG/1 ML 10ml inj ONE (08:00)
[2019-05-08] MEDS: K, MAG and/or Phos replacement - Verify level? MC SCH (08:00)
[2019-05-08] MEDS: CefTRIAXone 2gm/D5W 50ml 50 ML IV SCH (08:09)
[2019-05-08] MEDS: PARoxetine 20mg tablet PO SCH (08:10)
[2019-05-08] MEDS: lactobacillus rhamnosus 10,000 MMU CELLS/CAPSULE PO SCH ×2 (08:10→20:56)
[2019-05-08] MEDS: lisinopril 2.5mg tablet PO SCH (08:10)
[2019-05-08] MEDS: HYDROchlorothiazide 25mg tablet PO SCH (08:10)
[2019-05-08] MEDS: duloxetine 30mg CAPSULE.DR PO SCH (08:11)
[2019-05-08] MEDS: pantoprazole 40mg Tablet.DR PO SCH (08:11)
[2019-05-08] MEDS: heparin, porcine 5000 units/ml vial SQ SCH ×2 (08:11→20:55)
[2019-05-08] MEDS: aspirin 81mg tablet.DR PO SCH (08:11)
[2019-05-08] MEDS: calcium carbonate/vitamin D3 tablet PO SCH ×2 (08:11→20:56)
[2019-05-08] MEDS: gabapentin 300mg capsule PO SCH ×3 (08:11→20:57)
[2019-05-08 08:20] LABS: PLATELET ESTIMATE DECREASED; TOTAL CELLS COUNTED 100
[2019-05-08] MEDS: ondansetron/PF 4mg/2ml inj IV PRN ×2 (08:26→19:13)
[2019-05-08] MEDS: insulin Lispro (HumaLOG) vial - multi-dose SQ SCH ×3 (08:46→19:00)
[2019-05-08] MEDS: albuterol 2.5 MG/3 ML nebule NEB SCH ×4 (08:59→19:50)
[2019-05-08] MEDS: budesonide 0.5mg/2ml UD nebule IH SCH ×2 (08:59→19:51)
[2019-05-08 11:00] VITALS: BP 119/74
[2019-05-08] MEDS: dextrose ORAL solution 15 GM/59 ML bottle PO PRN (12:01)
--- NOTE | 2019-05-08 12:36 | NUR ---
At noon, patient complains of feeling weak, BS 30, pt is conscious and able to tolerate PO meds, 2 vials of 15g of dextrose given per md orders, rechecked BS in 15 mins and BS was 55, 1 vial of 15g of dextrose given per md orders, rechecked BS in 15 mins and BS is 122, pt is awake and denies any pain or discomfort at this time. will continue to monitor.
--- NOTE | 2019-05-08 13:07 | NUR ---
Pt has called Insulin pump company to have her insulin pump delivered, she states they will overnight ship the pump and should be delivered to her home by tomorrow, 05/09/19 morning.
[2019-05-08 15:00] VITALS: BP 136/67
--- NOTE | 2019-05-08 15:03 | NUR ---
Received phone call from Payton in Case Management that the insulin supplies and pump that patient ordered will not be here for another 2-[address] Saucedo still plans to discharge patient tomorrow, but patient will be sent home with prescriptions for insulins and supplies (syringes, etc). Will educate patient on checking own blood sugars and sliding scales, and pass onto welder 2nd shift to reinforce education.
--- NOTE | 2019-05-08 18:03 | NUR ---
New hire documentation: I have reviewed and agree with all interventions, assessments performed and documented by Josh AGUIRRE.
[2019-05-08 18:16] LABS: ALANINE AMINOTRANSFERASE 93 U/L (12-78); ALBUMIN/GLOBULIN RATIO 1.1 (1.1-1.5); ALKALINE PHOSPHATASE 130 IU/L (46-116); ANION GAP 5 (8-16); ASPARTATE AMINO TRANSFERASE 34 U/L (10-37); BILIRUBIN,TOTAL 0.3 MG/DL (0.1-1.0); BLOOD UREA NITROGEN 7 MG/DL (7-18); BUN/CREATININE RATIO 8.3 (6.6-38.0); CALCIUM 8.6 MG/DL (8.5-10.1); CHLORIDE 99 MMOL/L (99-107); CREATININE 0.84 MG/DL (0.40-0.90); GLUCOSE 284 MG/DL (70-104); MAGNESIUM 1.6 MG/DL (1.5-2.4); PHOSPHORUS 3.6 MG/DL (2.3-4.5); SODIUM 136 MMOL/L (135-145); TOTAL CARBON DIOXIDE 31.9 MMOL/L (24-32); TOTAL PROTEIN 5.8 G/DL (6.4-8.2); eGFR 72 ML/MIN
--- NOTE | 2019-05-08 18:38 | NUR ---
Problems reprioritized. Patient report given, questions answered & plan of care reviewed with Clint AGUIRRE.
--- NOTE | 2019-05-08 18:39 | NUR ---
Patient in room PCU 3012. I have received report from CARLA Workman and had the opportunity to ask questions and assume patient care.
[2019-05-08 19:00] VITALS: BP 121/65
[2019-05-08] MEDS: insulin glargine (Lantus) pen - multi-dose SQ SCH (20:47)
[2019-05-08] MEDS: amitriptyline 10mg tablet PO SCH (20:56)
[2019-05-08] MEDS: atorvastatin 10mg tablet PO SCH (20:56)
[2019-05-08 22:00] VITALS: BP 127/75
[2019-05-09] MEDS: insulin Lispro (HumaLOG) vial - multi-dose SQ SCH ×3 (00:11→08:11)
[2019-05-09 02:00] VITALS: BP 130/80
[2019-05-09] MEDS: ondansetron/PF 4mg/2ml inj IV PRN (02:25)
[2019-05-09] MEDS: sodium chloride 0.45% 1,000 ML IV SCH (05:05)
--- NOTE | 2019-05-09 06:30 | NUR ---
Patient in room PCU 3012. I have received report from Clint AGUIRRE and had the opportunity to ask questions and assume patient care.
--- NOTE | 2019-05-09 06:32 | NUR ---
Problems reprioritized. Patient report given, questions answered & plan of care reviewed with CARLA Gonzalez.
[2019-05-09 07:00] VITALS: BP 135/90
[2019-05-09] MEDS: albuterol 2.5 MG/3 ML nebule NEB SCH (07:00)
[2019-05-09] MEDS: budesonide 0.5mg/2ml UD nebule IH SCH (07:01)
[2019-05-09 07:12] LABS: BASOPHILS % (AUTO) 1.1 % (0-1); EOSINOPHILS # (AUTO) 0.2 X10'3 (0-0.9); EOSINOPHILS % (AUTO) 4.3 % (0-6); HEMATOCRIT 34.4 % (35.0-45.0); HEMOGLOBIN 11.5 g/dl (12.0-16.0); LYMPHOCYTES # (AUTO) 1.6 X10'3 (1.1-4.8); LYMPHOCYTES % (AUTO) 38.4 % (21-51); MEAN CORPUSCULAR HEMOGLOBIN 29.5 PG (27.0-31.0); MEAN CORPUSCULAR HGB CONC 33.3 g/dL (33.0-36.5); MEAN CORPUSCULAR VOLUME 88.3 FL (78-98); MEAN PLATELET VOLUME 9.1 FL (7.4-10.4); MONOCYTES # (AUTO) 0.4 X10'3 (0-0.9); MONOCYTES % (AUTO) 9.8 % (2-12); NEUTROPHILS # (AUTO) 1.9 X10'3 (1.8-7.7); NEUTROPHILS % (AUTO) 46.4 % (42-75); PLATELET COUNT 135 X10'3 (140-440); RED BLOOD COUNT 3.89 X10'6 (4.20-5.60); RED CELL DISTRIBUTION WIDTH 14.2 % (11.5-14.5)
[2019-05-09 07:28] LABS: ALANINE AMINOTRANSFERASE 72 U/L (12-78); ALBUMIN 2.9 G/DL (3.4-5.0); ALBUMIN/GLOBULIN RATIO 1.1 (1.1-1.5); ALKALINE PHOSPHATASE 110 IU/L (46-116); ANION GAP 5 (8-16); ASPARTATE AMINO TRANSFERASE 19 U/L (10-37); BILIRUBIN,TOTAL 0.4 MG/DL (0.1-1.0); BLOOD UREA NITROGEN 10 MG/DL (7-18); BUN/CREATININE RATIO 14.7 (6.6-38.0); CALCIUM 8.7 MG/DL (8.5-10.1); CHLORIDE 101 MMOL/L (99-107); CREATININE 0.68 MG/DL (0.40-0.90); GLUCOSE 207 MG/DL (70-104); MAGNESIUM 1.8 MG/DL (1.5-2.4); PHOSPHORUS 4.7 MG/DL (2.3-4.5); POTASSIUM 3.8 MMOL/L (3.5-5.1); SODIUM 139 MMOL/L (135-145); TOTAL CARBON DIOXIDE 33.3 MMOL/L (24-32); TOTAL PROTEIN 5.5 G/DL (6.4-8.2); eGFR > 90 ML/MIN
[2019-05-09] MEDS: CefTRIAXone 2gm/D5W 50ml 50 ML IV SCH (07:53)
[2019-05-09] MEDS: duloxetine 30mg CAPSULE.DR PO SCH (07:53)
[2019-05-09] MEDS: pantoprazole 40mg Tablet.DR PO SCH (07:54)
[2019-05-09] MEDS: lactobacillus rhamnosus 10,000 MMU CELLS/CAPSULE PO SCH (07:54)
[2019-05-09] MEDS: HYDROchlorothiazide 25mg tablet PO SCH (07:54)
[2019-05-09] MEDS: PARoxetine 20mg tablet PO SCH (07:54)
[2019-05-09] MEDS: aspirin 81mg tablet.DR PO SCH (07:54)
[2019-05-09 07:55] VITALS: BP_SYST 135
[2019-05-09] MEDS: calcium carbonate/vitamin D3 tablet PO SCH (07:55)
[2019-05-09] MEDS: lisinopril 2.5mg tablet PO SCH (07:55)
[2019-05-09] MEDS: K, MAG and/or Phos replacement - Verify level? MC SCH (08:00)
[2019-05-09] MEDS ORDERED: pregabalin 75mg capsule PO SCH (08:00)
[2019-05-09] MEDS ORDERED: apixaban 5mg tablet PO SCH (08:00)
[2019-05-09] MEDS ORDERED: LYR75C PO (09:10)
[2019-05-09] MEDS ORDERED: LANTUS SQ (09:10)
[2019-05-09] MEDS ORDERED: LACT1CAP26 PO (09:10)
[2019-05-09] MEDS ORDERED: APIX5TAB3 PO (09:10)
--- NOTE | 2019-05-09 10:40 | NUR ---
Discharge instructions given to patient, Diabetes survival kit reviewed with patient and given. IV removed cannula intact, tele box removed and returned to tele box. Rita called in new prescription to [facility] pharmacy. waiting for son to pick her up.
== END 2019-05-09 11:10 | disposition home health service (06) | DRG 420 ==
LOC: ER 17:59 → PCU 3S 21:23 → UNDOADMIN 21:23 → ICU 2S 21:23 → PCU 3S 05-06 10:43 → ICU 2S 05-06 10:43
PROVIDERS: ADMIT Internal Medicine Critical Care Medicine; ATTEND Family Medicine
DX: E11.10 Type 2 diabetes mellitus with ketoacidosis without coma (principal); N17.9 Acute kidney failure, unspecified; I47.1 Supraventricular tachycardia; I11.0 Hypertensive heart disease with heart failure; I50.9 Heart failure, unspecified; I48.0 Paroxysmal atrial fibrillation; E78.5 Hyperlipidemia, unspecified; E78.00 Pure hypercholesterolemia, unspecified; K21.9 Gastro-esophageal reflux disease without esophagitis; J45.909 Unspecified asthma, uncomplicated; F41.9 Anxiety disorder, unspecified; F32.9 Major depressive disorder, single episode, unspecified; G89.29 Other chronic pain; E11.42 Type 2 diabetes mellitus with diabetic polyneuropathy; M54.9 Dorsalgia, unspecified; F17.210 Nicotine dependence, cigarettes, uncomplicated; I45.6 Pre-excitation syndrome; Z88.8 Allergy status to other drugs, medicaments and biological substances; Z88.0 Allergy status to penicillin; Z88.1 Allergy status to other antibiotic agents; Z88.2 Allergy status to sulfonamides; Z79.899 Other long term (current) drug therapy; Z79.4 Long term (current) use of insulin; Z90.49 Acquired absence of other specified parts of digestive tract; Z90.710 Acquired absence of both cervix and uterus; Z56.0 Unemployment, unspecified; Z85.41 Personal history of malignant neoplasm of cervix uteri; Z80.8 Family history of malignant neoplasm of other organs or systems
CPT/HCPCS: 36415; 36600; 71045; 80048; 80053; 81001; 82803; 82948; 83605; 83735; 84100; 84132; 84145; 84484; 85018; 85025; 85610; 85730; 87040; 87081; 93005; 94640; 94760; 96374; 96375; 96376; 99285; G0378; J0696; J1644; J1815; J1940; J2270; J2405; J3480; J3490; J7626; P9045

== ENCOUNTER 2019-06-13 02:14 | Outpatient (CLI) | payer MEDICAID ==
[~2019-06-13 02:14] MED LIST changes: -ALEN70TA13; +ALEN70TA13 PO; +APIX5TAB3 PO; -CALC-880; +CALC1TAB PO; -GABA600T PO; -GLUC1KIT2 SUBCUT; -HYDR-4353 PO; +HYDR25TA4 PO; +LACT1CAP26 PO; +LANTUS SQ; +LYR75C PO; -METO-292 PO; +OMEP20CA11 PO; -ONDA4TAB6 PO; +POTA10TA15 PO; -PREG50CA PO; -SYRI-641 SQ
== END 2019-06-13 23:59 | disposition home or self-care (01) ==
LOC: DIABETIC 02:14
PROVIDERS: ATTEND Family Medicine
DX: E10.65 Type 1 diabetes mellitus with hyperglycemia (principal); I11.0 Hypertensive heart disease with heart failure; I50.9 Heart failure, unspecified; J45.909 Unspecified asthma, uncomplicated; Z79.4 Long term (current) use of insulin; Z79.84 Long term (current) use of oral hypoglycemic drugs; Z79.899 Other long term (current) drug therapy
CPT/HCPCS: G0108

== ENCOUNTER 2020-01-11 08:19 | Emergency (ER) | payer MEDICAID ==
[~2020-01-11] VITALS: Ht 170.2 cm; Wt 65.0 kg
[~2020-01-11 08:19] MED LIST changes: -APIX5TAB3 PO; +DOCU-267 PO; +HYDR-3972 PO; -LACT1CAP26 PO; -LANTUS SQ; -LYR75C PO; -OMEP20CA11 PO; +OMEP20CA15 PO; +ONDA4TAB12 PO; -PARO-62 PO; +PREG100C55 PO; +SIMV-42 PO; -SIMV20TA5 PO
[2020-01-11] MEDS ORDERED: normal saline 1000ML IV soln IV ONE (08:50)
[2020-01-11 09:19] LABS: BASOPHILS % (AUTO) 0.6 % (0-1); EOSINOPHILS # (AUTO) 0.3 X10'3 (0-0.9); EOSINOPHILS % (AUTO) 4.7 % (0-6); HEMATOCRIT 43.7 % (35.0-45.0); HEMOGLOBIN 14.5 g/dl (12.0-16.0); LYMPHOCYTES # (AUTO) 1.6 X10'3 (1.1-4.8); LYMPHOCYTES % (AUTO) 25.4 % (21-51); MEAN CORPUSCULAR HEMOGLOBIN 29.7 PG (27.0-31.0); MEAN CORPUSCULAR HGB CONC 33.2 g/dL (33.0-36.5); MEAN CORPUSCULAR VOLUME 89.3 FL (78-98); MEAN PLATELET VOLUME 9.9 FL (7.4-10.4); MONOCYTES # (AUTO) 0.4 X10'3 (0-0.9); MONOCYTES % (AUTO) 6.1 % (2-12); NEUTROPHILS % (AUTO) 63.2 % (42-75); PLATELET COUNT 190 X10'3 (140-440); RED BLOOD COUNT 4.89 X10'6 (4.20-5.60); WHITE BLOOD COUNT 6.4 X10'3 (4.5-11.0)
[2020-01-11 09:21] LABS: ABG BASE EXCESS 0.8 mmol/L (-2.0-3.0); ABG OXYGEN SATURATION 96.9 % (95-98); ABG PCO2 (T) 38.8 mmHg (35.0-45.0); ABG PH (T) 7.427 (7.350-7.450); ABG PO2 (T) 84.9 mmHg (83-108); ALLEN'S TEST POSITIVE; FCOHb 7.9 % (0.5-1.5); FO2Hb 89.2 % (94-100); TOTAL HEMOGLOBIN 14.1 G/dl (12.0-16.0)
[2020-01-11 09:35] LABS: ALANINE AMINOTRANSFERASE 94 U/L (12-78); ALBUMIN 3.4 G/DL (3.4-5.0); ALBUMIN/GLOBULIN RATIO 0.9 (1.1-1.5); ALKALINE PHOSPHATASE 162 IU/L (46-116); ANION GAP 6 (8-16); ASPARTATE AMINO TRANSFERASE 77 U/L (10-37); BILIRUBIN,TOTAL 0.3 MG/DL (0.1-1.0); BLOOD UREA NITROGEN 17 MG/DL (7-18); CALCIUM 8.9 MG/DL (8.5-10.1); CHLORIDE 100 MMOL/L (99-107); CREATININE 0.81 MG/DL (0.40-0.90); GLUCOSE 412 MG/DL (70-104); MAGNESIUM 1.8 MG/DL (1.5-2.4); POTASSIUM 4.6 MMOL/L (3.5-5.1); SODIUM 136 MMOL/L (135-145); TOTAL CARBON DIOXIDE 29.7 MMOL/L (24-32); TOTAL PROTEIN 7.1 G/DL (6.4-8.2); eGFR 75 ML/MIN
[2020-01-11 10:34] VITALS: BP 113/74
== END 2020-01-11 11:30 | disposition home or self-care (01) ==
LOC: ER 08:19
DX: E10.65 Type 1 diabetes mellitus with hyperglycemia (principal); E10.10 Type 1 diabetes mellitus with ketoacidosis without coma; I50.9 Heart failure, unspecified; E78.00 Pure hypercholesterolemia, unspecified; K21.9 Gastro-esophageal reflux disease without esophagitis; G89.29 Other chronic pain; I48.91 Unspecified atrial fibrillation; F41.9 Anxiety disorder, unspecified; F32.9 Major depressive disorder, single episode, unspecified; Z90.710 Acquired absence of both cervix and uterus; Z90.49 Acquired absence of other specified parts of digestive tract; Z56.0 Unemployment, unspecified; Z88.0 Allergy status to penicillin; Z88.1 Allergy status to other antibiotic agents; Z88.8 Allergy status to other drugs, medicaments and biological substances; Z79.899 Other long term (current) drug therapy; Z79.82 Long term (current) use of aspirin
CPT/HCPCS: 36415; 36600; 71045; 80053; 82803; 82948; 83605; 83735; 84145; 85018; 85025; 87040; 99284; J7030; 96360

== ENCOUNTER 2020-01-26 20:29 | Emergency (ER) | payer MEDICAID ==
[~2020-01-26] VITALS: Ht 170.2 cm; Wt 65.0 kg
[2020-01-26] MEDS ORDERED: normal saline 1000ML IV soln IVB ONE (20:40)
[2020-01-26] MEDS ORDERED: ondansetron/PF 4mg/2ml inj IV ONE (20:50)
[2020-01-26] MEDS ORDERED: insulin regular, human 10 units/0.1 ml syringe IV ONE (20:50)
[2020-01-26] MEDS ORDERED: insulin regular, human U-100 3ml vial - multi-dose SQ ONE (20:50)
[2020-01-26 20:59] LABS: BASOPHILS # (AUTO) 0.1 X10'3 (0-0.2); BASOPHILS % (AUTO) 0.7 % (0-1); EOSINOPHILS # (AUTO) 0.2 X10'3 (0-0.9); EOSINOPHILS % (AUTO) 1.9 % (0-6); HEMATOCRIT 40.5 % (35.0-45.0); HEMOGLOBIN 13.3 g/dl (12.0-16.0); LYMPHOCYTES # (AUTO) 2.2 X10'3 (1.1-4.8); LYMPHOCYTES % (AUTO) 25.6 % (21-51); MEAN CORPUSCULAR HEMOGLOBIN 29.3 PG (27.0-31.0); MEAN CORPUSCULAR HGB CONC 32.8 g/dL (33.0-36.5); MEAN CORPUSCULAR VOLUME 89.3 FL (78-98); MEAN PLATELET VOLUME 10.2 FL (7.4-10.4); MONOCYTES # (AUTO) 0.6 X10'3 (0-0.9); MONOCYTES % (AUTO) 6.5 % (2-12); NEUTROPHILS # (AUTO) 5.6 X10'3 (1.8-7.7); NEUTROPHILS % (AUTO) 65.3 % (42-75); PLATELET COUNT 160 X10'3 (140-440); RED BLOOD COUNT 4.54 X10'6 (4.20-5.60); RED CELL DISTRIBUTION WIDTH 14.7 % (11.5-14.5); WHITE BLOOD COUNT 8.6 X10'3 (4.5-11.0)
[2020-01-26 21:13] LABS: ALANINE AMINOTRANSFERASE 34 U/L (12-78); ALBUMIN 3.4 G/DL (3.4-5.0); ALBUMIN/GLOBULIN RATIO 0.9 (1.1-1.5); ALKALINE PHOSPHATASE 106 IU/L (46-116); ANION GAP 7 (8-16); ASPARTATE AMINO TRANSFERASE 32 U/L (10-37); BILIRUBIN,TOTAL 0.4 MG/DL (0.1-1.0); BLOOD UREA NITROGEN 29 MG/DL (7-18); BUN/CREATININE RATIO 27.4 (6.6-38.0); CALCIUM 8.7 MG/DL (8.5-10.1); CHLORIDE 100 MMOL/L (99-107); CREATININE 1.06 MG/DL (0.40-0.90); LIPASE 733 U/L (73-393); POTASSIUM 4.7 MMOL/L (3.5-5.1); SODIUM 134 MMOL/L (135-145); TOTAL CARBON DIOXIDE 27.5 MMOL/L (24-32); TOTAL PROTEIN 7.1 G/DL (6.4-8.2); eGFR 55 ML/MIN
[2020-01-26 21:25] LABS: GLUCOSE 599 MG/DL (70-104)
[2020-01-26] MEDS ORDERED: NEOM10DR45 LEFT EAR (21:33)
[2020-01-26] MEDS ORDERED: LEVO500T89 PO (21:33)
[2020-01-26] MEDS ORDERED: insulin regular, human 10 units/0.1 ml syringe SQ ONE (21:40)
[2020-01-26] MEDS ORDERED: insulin regular, human U-100 3ml vial - multi-dose IV ONE (21:40)
[2020-01-26] MEDS ORDERED: ondansetron 4mg rapidly disintigrating tab PO ONE (21:55)
[2020-01-26 22:02] VITALS: BP 118/77
[2020-01-26 22:05] LABS: CLARITY,URINE CLEAR (Clear); COLOR,URINE STRAW (Yellow); GLUCOSE, URINE >=1000 mg/dl (Neg); KETONES,URINE NEGATIVE (Neg); LEUKOCYTE ESTERASE ,URINE NEGATIVE (Neg); NITRITES, URINE NEGATIVE (Neg); OCCULT BLOOD,URINE NEGATIVE (Neg); PH,URINE 6.5 (4.8-8.0); PROTEIN,URINE NEGATIVE (Neg); UROBILINOGEN,URINE 0.2 E.U/dL (0.2-1.0)
[2020-01-26 22:10] LABS: UA COLLECTION TYPE CLN CATCH MIDSTREAM
[2020-01-26 22:22] LABS: BACTERIA,URINE NONE SEEN /HPF (Neg); MUCUS STRANDS NONE SEEN /LPF (Neg); RBC,URINE 0-2 /HPF (0-2); SQUAMOUS EPITHELIAL CELL,UR NONE SEEN /LPF (FEW); WBC,URINE NONE SEEN /HPF (0-4)
== END 2020-01-26 22:04 | disposition home or self-care (01) ==
LOC: ER 20:30
DX: E10.65 Type 1 diabetes mellitus with hyperglycemia (principal); H60.92 Unspecified otitis externa, left ear; I48.91 Unspecified atrial fibrillation; I50.9 Heart failure, unspecified; E78.00 Pure hypercholesterolemia, unspecified; J45.909 Unspecified asthma, uncomplicated; K21.9 Gastro-esophageal reflux disease without esophagitis; G89.29 Other chronic pain; Z56.0 Unemployment, unspecified; Z90.49 Acquired absence of other specified parts of digestive tract; Z90.710 Acquired absence of both cervix and uterus; Z98.890 Other specified postprocedural states; Z79.4 Long term (current) use of insulin; Z79.82 Long term (current) use of aspirin; Z88.1 Allergy status to other antibiotic agents; Z88.0 Allergy status to penicillin; Z88.6 Allergy status to analgesic agent
CPT/HCPCS: 36415; 80053; 81001; 82948; 83690; 85025; 96372; 96374; 96375; 99284; J1815; J2405; J7030

== ENCOUNTER 2020-02-04 12:14 | Emergency (ER) | payer MEDICAID ==
[~2020-02-04] VITALS: Ht 170.2 cm; Wt 65.0 kg
[~2020-02-04 12:14] MED LIST changes: +LEVO500T89 PO
[2020-02-04 12:47] LABS: BASOPHILS % (AUTO) 0.6 % (0-1); EOSINOPHILS # (AUTO) 0.2 X10'3 (0-0.9); EOSINOPHILS % (AUTO) 2.8 % (0-6); HEMATOCRIT 42.4 % (35.0-45.0); HEMOGLOBIN 13.8 g/dl (12.0-16.0); LYMPHOCYTES # (AUTO) 1.5 X10'3 (1.1-4.8); LYMPHOCYTES % (AUTO) 18.5 % (21-51); MEAN CORPUSCULAR HEMOGLOBIN 28.9 PG (27.0-31.0); MEAN CORPUSCULAR HGB CONC 32.5 g/dL (33.0-36.5); MEAN CORPUSCULAR VOLUME 88.9 FL (78-98); MEAN PLATELET VOLUME 9.9 FL (7.4-10.4); MONOCYTES # (AUTO) 0.4 X10'3 (0-0.9); MONOCYTES % (AUTO) 4.7 % (2-12); NEUTROPHILS # (AUTO) 5.8 X10'3 (1.8-7.7); NEUTROPHILS % (AUTO) 73.4 % (42-75); PLATELET COUNT 202 X10'3 (140-440); RED BLOOD COUNT 4.77 X10'6 (4.20-5.60); RED CELL DISTRIBUTION WIDTH 14.4 % (11.5-14.5)
[2020-02-04 13:03] LABS: ALANINE AMINOTRANSFERASE 65 U/L (12-78); ALBUMIN 3.2 G/DL (3.4-5.0); ALBUMIN/GLOBULIN RATIO 0.9 (1.1-1.5); ALKALINE PHOSPHATASE 127 IU/L (46-116); ANION GAP 7 (8-16); ASPARTATE AMINO TRANSFERASE 31 U/L (10-37); BILIRUBIN,TOTAL 0.4 MG/DL (0.1-1.0); BLOOD UREA NITROGEN 14 MG/DL (7-18); BUN/CREATININE RATIO 20.6 (6.6-38.0); CALCIUM 8.9 MG/DL (8.5-10.1); CHLORIDE 101 MMOL/L (99-107); CREATININE 0.68 MG/DL (0.40-0.90); GLUCOSE 413 MG/DL (70-104); POTASSIUM 4.4 MMOL/L (3.5-5.1); SODIUM 134 MMOL/L (135-145); TOTAL CARBON DIOXIDE 25.9 MMOL/L (24-32); TOTAL PROTEIN 6.8 G/DL (6.4-8.2); eGFR > 90 ML/MIN
[2020-02-04 13:04] LABS: PARTIAL THROMBOPLASTIN TIME 25 SECONDS (22-32)
[2020-02-04] MEDS ORDERED: normal saline 1000ML IV soln IVB ONE ×2 (14:40)
[2020-02-04] MEDS ORDERED: insulin regular, human U-100 3ml vial - multi-dose SQ ONE (14:40)
[2020-02-04] MEDS ORDERED: ondansetron/PF 4mg/2ml inj IV ONE (14:40)
[2020-02-04] MEDS ORDERED: pantoprazole 40 MG vial IV ONE (14:40)
[2020-02-04 16:42] VITALS: BP 123/75
== END 2020-02-04 16:44 | disposition home or self-care (01) ==
LOC: ER 12:15
DX: E11.65 Type 2 diabetes mellitus with hyperglycemia (principal); R07.89 Other chest pain; R10.13 Epigastric pain; I48.91 Unspecified atrial fibrillation; E78.00 Pure hypercholesterolemia, unspecified; I50.9 Heart failure, unspecified; J45.909 Unspecified asthma, uncomplicated; K21.9 Gastro-esophageal reflux disease without esophagitis; G89.29 Other chronic pain; F41.9 Anxiety disorder, unspecified; Z90.49 Acquired absence of other specified parts of digestive tract; Z90.710 Acquired absence of both cervix and uterus; Z56.0 Unemployment, unspecified; Z88.1 Allergy status to other antibiotic agents; Z88.0 Allergy status to penicillin; Z88.8 Allergy status to other drugs, medicaments and biological substances; Z79.899 Other long term (current) drug therapy; Z79.82 Long term (current) use of aspirin
CPT/HCPCS: 36415; 71045; 80053; 82948; 84484; 85025; 85610; 85730; 93005; 96361; 96372; 96374; 96375; 99285; C9113; J2405; J7030; 99283; J1815

== ENCOUNTER 2020-02-11 07:37 | Emergency (ER) | payer MEDICAID ==
[~2020-02-11] VITALS: Ht 170.2 cm; Wt 61.3 kg
[2020-02-11] MEDS ORDERED: normal saline 1000ML IV soln IVB ONE (07:55)
[2020-02-11] MEDS ORDERED: insulin regular, human 10 units/0.1 ml syringe SQ ONE (08:30)
[2020-02-11] MEDS ORDERED: insulin regular, human 10 units/0.1 ml syringe IV ONE (08:30)
[2020-02-11] MEDS ORDERED: ondansetron/PF 4mg/2ml inj IV ONE (08:30)
[2020-02-11 08:34] LABS: BASOPHILS # (AUTO) 0.1 X10'3 (0-0.2); EOSINOPHILS # (AUTO) 0.3 X10'3 (0-0.9); EOSINOPHILS % (AUTO) 3.4 % (0-6); HEMATOCRIT 47.1 % (35.0-45.0); HEMOGLOBIN 15.6 g/dl (12.0-16.0); LYMPHOCYTES # (AUTO) 1.7 X10'3 (1.1-4.8); LYMPHOCYTES % (AUTO) 21.6 % (21-51); MEAN CORPUSCULAR HEMOGLOBIN 29.9 PG (27.0-31.0); MEAN CORPUSCULAR HGB CONC 33.1 g/dL (33.0-36.5); MEAN CORPUSCULAR VOLUME 90.5 FL (78-98); MEAN PLATELET VOLUME 9.9 FL (7.4-10.4); MONOCYTES # (AUTO) 0.4 X10'3 (0-0.9); MONOCYTES % (AUTO) 5.2 % (2-12); NEUTROPHILS # (AUTO) 5.3 X10'3 (1.8-7.7); NEUTROPHILS % (AUTO) 68.8 % (42-75); PLATELET COUNT 229 X10'3 (140-440); RED BLOOD COUNT 5.21 X10'6 (4.20-5.60); RED CELL DISTRIBUTION WIDTH 14.6 % (11.5-14.5); WHITE BLOOD COUNT 7.8 X10'3 (4.5-11.0)
[2020-02-11 08:36] LABS: CLARITY,URINE CLEAR (Clear); COLOR,URINE YELLOW (Yellow); GLUCOSE, URINE >=1000 mg/dl (Neg); KETONES,URINE NEGATIVE (Neg); LEUKOCYTE ESTERASE ,URINE NEGATIVE (Neg); NITRITES, URINE NEGATIVE (Neg); OCCULT BLOOD,URINE NEGATIVE (Neg); PH,URINE 6.5 (4.8-8.0); PROTEIN,URINE NEGATIVE (Neg); UROBILINOGEN,URINE 0.2 E.U/dL (0.2-1.0)
[2020-02-11] MEDS ORDERED: insulin regular, human U-100 3ml vial - multi-dose SQ ONE (08:40)
[2020-02-11] MEDS ORDERED: insulin regular, human U-100 3ml vial - multi-dose IV ONE (08:40)
[2020-02-11 08:47] LABS: UA COLLECTION TYPE CLN CATCH MIDSTREAM
[2020-02-11 08:48] LABS: BACTERIA,URINE NONE SEEN /HPF (Neg); RBC,URINE NONE SEEN /HPF (0-2); SQUAMOUS EPITHELIAL CELL,UR FEW /LPF (FEW); WBC,URINE 0-4 /HPF (0-4)
[2020-02-11 08:49] LABS: ALANINE AMINOTRANSFERASE 190 U/L (12-78); ALBUMIN 3.9 G/DL (3.4-5.0); ALBUMIN/GLOBULIN RATIO 0.9 (1.1-1.5); ALKALINE PHOSPHATASE 251 IU/L (46-116); ANION GAP 8 (8-16); ASPARTATE AMINO TRANSFERASE 122 U/L (10-37); BILIRUBIN,TOTAL 0.3 MG/DL (0.1-1.0); BLOOD UREA NITROGEN 18 MG/DL (7-18); BUN/CREATININE RATIO 21.2 (6.6-38.0); CALCIUM 9.4 MG/DL (8.5-10.1); CHLORIDE 101 MMOL/L (99-107); CREATININE 0.85 MG/DL (0.40-0.90); GLUCOSE 407 MG/DL (70-104); LIPASE 162 U/L (73-393); POTASSIUM 4.2 MMOL/L (3.5-5.1); SODIUM 138 MMOL/L (135-145); TOTAL CARBON DIOXIDE 28.6 MMOL/L (24-32); TOTAL PROTEIN 8.3 G/DL (6.4-8.2); eGFR 71 ML/MIN
[2020-02-11 08:50] LABS: YEAST FEW /HPF (NEGATIVE)
[2020-02-11] MEDS ORDERED: LORazepam 2 mg/ml vial IV ONE (08:55)
[2020-02-11] MEDS ORDERED: COROTSUS OT (09:07)
[2020-02-11] MEDS ORDERED: LEVO500T89 PO (09:07)
[2020-02-11] MEDS ORDERED: HYDROcodone/acetaminophen 5mg/325mg tablet PO ONE (10:30)
[2020-02-11] MEDS ORDERED: ketorolac trometh. 30mg/ml inj. IM ONE (11:15)
[2020-02-11 11:42] VITALS: BP 128/73
== END 2020-02-11 11:43 | disposition home or self-care (01) ==
LOC: ER 07:39
DX: H60.93 Unspecified otitis externa, bilateral (principal); F41.9 Anxiety disorder, unspecified; E11.65 Type 2 diabetes mellitus with hyperglycemia; I48.91 Unspecified atrial fibrillation; E78.00 Pure hypercholesterolemia, unspecified; I50.9 Heart failure, unspecified; J45.909 Unspecified asthma, uncomplicated; K21.9 Gastro-esophageal reflux disease without esophagitis; G89.29 Other chronic pain; F32.9 Major depressive disorder, single episode, unspecified; F17.210 Nicotine dependence, cigarettes, uncomplicated; Z90.49 Acquired absence of other specified parts of digestive tract; Z90.710 Acquired absence of both cervix and uterus; Z56.0 Unemployment, unspecified; Z88.8 Allergy status to other drugs, medicaments and biological substances; Z88.0 Allergy status to penicillin; Z88.1 Allergy status to other antibiotic agents; Z79.82 Long term (current) use of aspirin; Z79.899 Other long term (current) drug therapy
CPT/HCPCS: 36415; 80053; 81001; 82948; 83690; 85025; 96361; 96372; 96374; 96375; 99284; J1885; J2060; J2405; J7030; J1815

== ENCOUNTER 2020-02-29 20:44 | Emergency (ER) | payer MEDICAID ==
[~2020-02-29] VITALS: Ht 170.2 cm; Wt 69.7 kg
[~2020-02-29 20:44] MED LIST changes: +COROTSUS OT
[2020-02-29 21:45] LABS: BASOPHILS # (AUTO) 0.1 X10'3 (0-0.2); BASOPHILS % (AUTO) 0.8 % (0-1); EOSINOPHILS # (AUTO) 0.3 X10'3 (0-0.9); EOSINOPHILS % (AUTO) 4.9 % (0-6); HEMATOCRIT 40.3 % (35.0-45.0); HEMOGLOBIN 13.3 g/dl (12.0-16.0); LYMPHOCYTES # (AUTO) 2.3 X10'3 (1.1-4.8); LYMPHOCYTES % (AUTO) 33.3 % (21-51); MEAN CORPUSCULAR HEMOGLOBIN 29.5 PG (27.0-31.0); MEAN CORPUSCULAR VOLUME 89.4 FL (78-98); MEAN PLATELET VOLUME 9.2 FL (7.4-10.4); MONOCYTES # (AUTO) 0.5 X10'3 (0-0.9); NEUTROPHILS # (AUTO) 3.6 X10'3 (1.8-7.7); PLATELET COUNT 216 X10'3 (140-440); RED CELL DISTRIBUTION WIDTH 14.6 % (11.5-14.5); WHITE BLOOD COUNT 6.8 X10'3 (4.5-11.0)
[2020-02-29 21:45] LABS: CLARITY,URINE CLEAR (Clear); COLOR,URINE YELLOW (Yellow); GLUCOSE, URINE >=1000 mg/dl (Neg); KETONES,URINE NEGATIVE (Neg); LEUKOCYTE ESTERASE ,URINE NEGATIVE (Neg); NITRITES, URINE NEGATIVE (Neg); OCCULT BLOOD,URINE NEGATIVE (Neg); PH,URINE 7.5 (4.8-8.0); PROTEIN,URINE NEGATIVE (Neg)
[2020-02-29 21:58] LABS: ALANINE AMINOTRANSFERASE 51 U/L (12-78); ALBUMIN 3.2 G/DL (3.4-5.0); ALBUMIN/GLOBULIN RATIO 0.9 (1.1-1.5); ALKALINE PHOSPHATASE 126 IU/L (46-116); ANION GAP 7 (8-16); ASPARTATE AMINO TRANSFERASE 33 U/L (10-37); BILIRUBIN,TOTAL 0.3 MG/DL (0.1-1.0); BLOOD UREA NITROGEN 14 MG/DL (7-18); BUN/CREATININE RATIO 17.1 (6.6-38.0); CALCIUM 8.7 MG/DL (8.5-10.1); CHLORIDE 102 MMOL/L (99-107); CREATININE 0.82 MG/DL (0.40-0.90); GLUCOSE 276 MG/DL (70-104); LIPASE 316 U/L (73-393); POTASSIUM 4.3 MMOL/L (3.5-5.1); SODIUM 136 MMOL/L (135-145); TOTAL PROTEIN 6.6 G/DL (6.4-8.2); eGFR 73 ML/MIN
[2020-02-29 22:02] LABS: UA COLLECTION TYPE CLN CATCH MIDSTREAM
[2020-02-29 22:03] LABS: BACTERIA,URINE FEW /HPF (Neg); RBC,URINE 0-2 /HPF (0-2); SQUAMOUS EPITHELIAL CELL,UR FEW /LPF (FEW); WBC,URINE NONE SEEN /HPF (0-4)
[2020-02-29] MEDS ORDERED: fentaNYL/PF 50MCG/1 ML 2ML syringe IV ONE ×2 (22:15)
[2020-02-29] MEDS ORDERED: ondansetron/PF 4mg/2ml inj IV ONE (22:15)
[2020-02-29] MEDS: normal saline 1000ml 1,000 ML IV ONE ×2 (22:19→22:41)
[2020-02-29] MEDS ORDERED: insulin regular, human 10 units/0.1 ml syringe IV ONE (22:20)
[2020-02-29] MEDS ORDERED: normal saline 1000ML IV soln IVB ONE (22:20)
--- NOTE | 2020-02-29 22:28 | NUR ---
pt going to CT.
[2020-02-29] MEDS ORDERED: insulin regular, human U-100 3ml vial - multi-dose IV ONE (22:30)
[2020-02-29] MEDS ORDERED: HYDR-3965 PO (23:18)
[2020-02-29] MEDS ORDERED: ONDA4TAB12 PO (23:18)
[2020-02-29 23:27] VITALS: BP 102/65
== END 2020-02-29 23:29 | disposition home or self-care (01) ==
LOC: ER 20:45
DX: K42.9 Umbilical hernia without obstruction or gangrene (principal); I48.91 Unspecified atrial fibrillation; I50.9 Heart failure, unspecified; E78.00 Pure hypercholesterolemia, unspecified; J45.909 Unspecified asthma, uncomplicated; K21.9 Gastro-esophageal reflux disease without esophagitis; E11.9 Type 2 diabetes mellitus without complications; G89.29 Other chronic pain; F41.9 Anxiety disorder, unspecified; F32.9 Major depressive disorder, single episode, unspecified; Z90.49 Acquired absence of other specified parts of digestive tract; Z90.710 Acquired absence of both cervix and uterus; Z98.890 Other specified postprocedural states; Z56.0 Unemployment, unspecified; Z88.0 Allergy status to penicillin; Z88.1 Allergy status to other antibiotic agents; Z88.2 Allergy status to sulfonamides; Z88.8 Allergy status to other drugs, medicaments and biological substances; Z79.82 Long term (current) use of aspirin; Z79.2 Long term (current) use of antibiotics; Z79.899 Other long term (current) drug therapy
CPT/HCPCS: 36415; 74176; 80053; 81001; 82948; 83690; 85025; 96374; 96375; 99284; J2405; J3010; J7030; J1815

== ENCOUNTER 2020-03-15 20:43 | Inpatient (IN) | payer MEDICAID ==
[~2020-03-15] VITALS: Ht 170.2 cm; Wt 64.5 kg
[~2020-03-15 20:43] MED LIST changes: +HYDR-3965 PO; -LEVO500T89 PO
[2020-03-15] MEDS ORDERED: insulin regular, human U-100 3ml vial - multi-dose IV ONE (21:00)
[2020-03-15] MEDS ORDERED: ondansetron/PF 4mg/2ml inj IV ONE (21:00)
[2020-03-15] MEDS ORDERED: normal saline 1000ML IV soln IVB ONE (21:00)
[2020-03-15 21:27] LABS: BASOPHILS # (AUTO) 0.1 X10'3 (0-0.2); BASOPHILS % (AUTO) 0.6 % (0-1); EOSINOPHILS % (AUTO) 0.1 % (0-6); HEMATOCRIT 48.2 % (35.0-45.0); HEMOGLOBIN 15.2 g/dl (12.0-16.0); LYMPHOCYTES % (AUTO) 8.9 % (21-51); MEAN CORPUSCULAR HEMOGLOBIN 29.4 PG (27.0-31.0); MEAN CORPUSCULAR HGB CONC 31.6 g/dL (33.0-36.5); MEAN CORPUSCULAR VOLUME 92.9 FL (78-98); MEAN PLATELET VOLUME 10.7 FL (7.4-10.4); MONOCYTES # (AUTO) 0.4 X10'3 (0-0.9); MONOCYTES % (AUTO) 3.6 % (2-12); NEUTROPHILS # (AUTO) 9.5 X10'3 (1.8-7.7); NEUTROPHILS % (AUTO) 86.8 % (42-75); PLATELET COUNT 225 X10'3 (140-440); RED BLOOD COUNT 5.18 X10'6 (4.20-5.60); RED CELL DISTRIBUTION WIDTH 14.9 % (11.5-14.5); WHITE BLOOD COUNT 10.9 X10'3 (4.5-11.0)
[2020-03-15 21:30] LABS: ABG BASE EXCESS -19.1 mmol/L (-2.0-3.0); ABG HCO3 7.6 mmol/L (22.0-26.0); ABG OXYGEN SATURATION 97.1 % (95-98); ABG PCO2 (T) 21.8 mmHg (35.0-45.0); ABG PO2 (T) 112.3 mmHg (83-108); FCOHb 1.7 % (0.5-1.5); FMetHb 0.4 % (0.3-1.12); FO2Hb 95.1 % (94-100); PATIENT TEMPERATURE 37.2; TOTAL HEMOGLOBIN 14.8 G/dl (12.0-16.0)
[2020-03-15] MEDS ORDERED: Insulin Reg/NS 100units/100mL 100 ML IV SCH ×2 (21:39→22:28)
[2020-03-15] MEDS ORDERED: potassium CL 20mEq in D5-1/2NS 1,000 ML IV PRN ×2 (21:39→22:28)
[2020-03-15] MEDS ORDERED: sodium bicarbonate (8.4%) inj. 100 MEQ in dextrose 5% water 500ml 500 ML IV PRN (21:39)
[2020-03-15] MEDS ORDERED: sodium bicarbonate (8.4%) inj. 50 MEQ in dextrose 5% water 500ml 250 ML IV PRN (21:39)
[2020-03-15] MEDS ORDERED: Neutra Phos packet PO PRN (21:40)
[2020-03-15] MEDS ORDERED: sodium phosphate inj. 15 MMOL in dextrose 5%-water 245 ML IV PRN (21:40)
[2020-03-15] MEDS ORDERED: insulin regular, human U-100 3ml vial - multi-dose IV PRN ×2 (21:40→22:30)
[2020-03-15] MEDS ORDERED: sodium phosphate inj. 30 MMOL in dextrose 5%-water 240 ML IV PRN (21:40)
[2020-03-15] MEDS ORDERED: potassium Cl 20 mEq SR tablet PO PRN ×4 (21:40→22:30)
[2020-03-15] MEDS ORDERED: potassium CL 10mEq/100ml bag 100 ML IV PRN ×4 (21:40→22:30)
[2020-03-15 21:41] LABS: ALANINE AMINOTRANSFERASE 39 U/L (12-78); ALKALINE PHOSPHATASE 137 IU/L (46-116); ANION GAP 30 (8-16); ASPARTATE AMINO TRANSFERASE 21 U/L (10-37); BILIRUBIN,TOTAL 0.7 MG/DL (0.1-1.0); BLOOD UREA NITROGEN 24 MG/DL (7-18); BUN/CREATININE RATIO 16.8 (6.6-38.0); CALCIUM 9.5 MG/DL (8.5-10.1); CHLORIDE 90 MMOL/L (99-107); CREATININE 1.43 MG/DL (0.40-0.90); LIPASE 77 U/L (73-393); POTASSIUM 5.4 MMOL/L (3.5-5.1); SODIUM 131 MMOL/L (135-145); TOTAL PROTEIN 7.9 G/DL (6.4-8.2); TROPONIN I < 0.04 NG/ML (0.0-0.05); eGFR 39 ML/MIN
[2020-03-15 21:43] LABS: GLUCOSE 654 MG/DL (70-104)
[2020-03-15 21:44] LABS: TOTAL CARBON DIOXIDE 10.6 MMOL/L (24-32)
[2020-03-15] MEDS: normal saline 1000ml 1,000 ML IV SCH ×3 (21:54→22:49)
[2020-03-15] MEDS ORDERED: normal saline 1000ml 1,000 ML IV SCH (22:28)
[2020-03-15] MEDS ORDERED: ondansetron/PF 4mg/2ml inj IV PRN (22:30)
[2020-03-15] MEDS ORDERED: magnesium hydroxide 30ml (MOM) UD suspension PO PRN (22:30)
[2020-03-15] MEDS ORDERED: acetaminophen 325mg tablet PO PRN (22:30)
[2020-03-15] MEDS ORDERED: mag hydrox/Alum hydrox/simeth 30ml oral suspension PO PRN (22:30)
--- NOTE | 2020-03-15 22:30 | NUR ---
assisted to get pt up to bs commode and a ua was collected.
[2020-03-15 22:37] LABS: PHOSPHORUS 6.3 MG/DL (2.3-4.5)
[2020-03-15 22:44] LABS: URINE HCG NEGATIVE (NEG)
[2020-03-15 22:46] LABS: CLARITY,URINE CLEAR (Clear); COLOR,URINE YELLOW (Yellow); GLUCOSE, URINE >=1000 mg/dl (Neg); KETONES,URINE >=80 mg/dl (Neg); LEUKOCYTE ESTERASE ,URINE NEGATIVE (Neg); NITRITES, URINE NEGATIVE (Neg); OCCULT BLOOD,URINE TRACE-INTACT (Neg); PH,URINE 5.5 (4.8-8.0); PROTEIN,URINE NEGATIVE (Neg); UROBILINOGEN,URINE 0.2 E.U/dL (0.2-1.0)
--- NOTE | 2020-03-15 22:50 | NUR ---
Pt arived at the unit via gurney; pt belongings are with the pt; placed in tele monitor. MRSA swab done.
[2020-03-15 22:53] LABS: UA COLLECTION TYPE CLN CATCH MIDSTREAM
[2020-03-15 22:54] LABS: BACTERIA,URINE FEW /HPF (Neg); RBC,URINE 0-2 /HPF (0-2); SQUAMOUS EPITHELIAL CELL,UR FEW /LPF (FEW); WBC,URINE 0-4 /HPF (0-4)
[2020-03-15 23:22] VITALS: BP 104/57
[2020-03-15] MEDS: acetaminophen 325mg tablet PO PRN (23:47)
[2020-03-16] VITALS (7 sets, daily range): BP systolic 84–105; BP diastolic 54–64
[2020-03-16 00:56] LABS: ALBUMIN 3.2 G/DL (3.4-5.0); ANION GAP 17 (8-16); BLOOD UREA NITROGEN 19 MG/DL (7-18); BUN/CREATININE RATIO 16.8 (6.6-38.0); CALCIUM 7.7 MG/DL (8.5-10.1); CHLORIDE 104 MMOL/L (99-107); CREATININE 1.13 MG/DL (0.40-0.90); GLUCOSE 238 MG/DL (70-104); PHOSPHORUS 3.3 MG/DL (2.3-4.5); POTASSIUM 4.8 MMOL/L (3.5-5.1); SODIUM 139 MMOL/L (135-145); TOTAL CARBON DIOXIDE 17.7 MMOL/L (24-32); eGFR 51 ML/MIN
[2020-03-16] MEDS: normal saline 1000ml 1,000 ML IV SCH ×2 (01:18→05:39)
[2020-03-16 03:10] LABS: BASOPHILS % (AUTO) 0.3 % (0-1); EOSINOPHILS % (AUTO) 0.1 % (0-6); HEMATOCRIT 39.6 % (35.0-45.0); HEMOGLOBIN 12.8 g/dl (12.0-16.0); LYMPHOCYTES # (AUTO) 2.1 X10'3 (1.1-4.8); MEAN CORPUSCULAR HEMOGLOBIN 28.5 PG (27.0-31.0); MEAN CORPUSCULAR HGB CONC 32.3 g/dL (33.0-36.5); MEAN PLATELET VOLUME 10.5 FL (7.4-10.4); MONOCYTES # (AUTO) 0.6 X10'3 (0-0.9); MONOCYTES % (AUTO) 4.7 % (2-12); NEUTROPHILS # (AUTO) 9.5 X10'3 (1.8-7.7); NEUTROPHILS % (AUTO) 77.9 % (42-75); PLATELET COUNT 190 X10'3 (140-440); WHITE BLOOD COUNT 12.2 X10'3 (4.5-11.0)
--- NOTE | 2020-03-16 05:21 | NUR ---
Paged Dr. Hernandez. PAGER ID: [phone] MESSAGE: This is CARLA Pollock PCU x [phone]. Pt in 3018A Juana Ferrari 49 F with Dx : DKA. Pt's 0500 BS = 111. Can we titrate the Insulin drip down to 3 IU/hour? Pt is on Insulin drip @ 5 IU/h & D5 1/2 NS with 20 mEq KCL running at 250 ml/hr. Thanks!
[2020-03-16] MEDS ORDERED: HYDROcodone/acetaminophen 5mg/325mg tablet PO PRN (05:45)
[2020-03-16] MEDS ORDERED: ondansetron 4mg rapidly disintigrating tab PO PRN ×2 (05:45)
[2020-03-16] MEDS ORDERED: HYDROcodone/acetaminophen 10/325mg tab PO PRN (05:45)
[2020-03-16] MEDS ORDERED: diazepam 5mg tablet PO PRN (05:45)
[2020-03-16] MEDS ORDERED: non-formulary drug (Alendronate Sodium 1 TABLET) PO SCH (05:45)
[2020-03-16] MEDS ORDERED: diazepam 2mg tablet PO PRN (05:49)
[2020-03-16] MEDS: acetaminophen 325mg tablet PO PRN (05:54)
--- NOTE | 2020-03-16 06:45 | NUR ---
Patient in room PCU 3018. I have received report from Jessica AGUIRRE and had the opportunity to ask questions and assume patient care. Patient is agitated. Repositioned, checked blood sugar and obtained V/S. Page sent to .
[2020-03-16 07:17] LABS: ALANINE AMINOTRANSFERASE 29 U/L (12-78); ALBUMIN 2.8 G/DL (3.4-5.0); ALBUMIN/GLOBULIN RATIO 1.1 (1.1-1.5); ALKALINE PHOSPHATASE 89 IU/L (46-116); ANION GAP 9 (8-16); ASPARTATE AMINO TRANSFERASE 16 U/L (10-37); BILIRUBIN,TOTAL 0.3 MG/DL (0.1-1.0); BLOOD UREA NITROGEN 16 MG/DL (7-18); BUN/CREATININE RATIO 18.8 (6.6-38.0); CHLORIDE 110 MMOL/L (99-107); CREATININE 0.85 MG/DL (0.40-0.90); GLUCOSE 106 MG/DL (70-104); POTASSIUM 4.2 MMOL/L (3.5-5.1); SODIUM 140 MMOL/L (135-145); TOTAL CARBON DIOXIDE 21.2 MMOL/L (24-32); TOTAL PROTEIN 5.4 G/DL (6.4-8.2); eGFR 71 ML/MIN
--- NOTE | 2020-03-16 07:25 | NUR ---
PAGER ID: [phone] MESSAGE: [phone] Juana Ferrari - PAU Blood glucose 62. Insulin gtt stopped. Do you want to add D10? Decrease insulin to 1 unit/HR. Or allow patient to eat? Tonya Ext [phone]
[2020-03-16] MEDS: K and/or MAG REPLACEMENT MC SCH ×2 (08:00→20:00)
[2020-03-16] MEDS: lisinopril 2.5mg tablet PO SCH (08:00)
[2020-03-16] MEDS ORDERED: K and/or MAG REPLACEMENT MC SCH (08:00)
[2020-03-16] MEDS: HYDROchlorothiazide 25mg tablet PO SCH (08:00)
--- NOTE | 2020-03-16 08:00 | NUR ---
PAGER ID: [phone] MESSAGE: [phone] Juana Ferrari, Labs are corrected. Blood sugar 95, can the patient please eat and can we get the protocol ordered? Also, can we decrease insulin gtt to 1 unit/HR? Tonya [phone]
--- NOTE | 2020-03-16 08:00 | NUR ---
MD at bedside, anion gap is 9, C02 21.2, blood glucose now is now 95. MD ordered to keep insulin gtt off and feed patient, continue hourly accu checks and obtain labs sometime today. Also, MD ordered to follow hypo/hyperglycemic protocol. Patient is not symptomatic at this time. Will continue to monitor closely.
[2020-03-16] MEDS: albuterol 2.5 MG/3 ML nebule NEB PRN ×2 (08:17→20:40)
[2020-03-16] MEDS: budesonide 0.5mg/2ml UD nebule IH SCH ×2 (08:17→20:40)
[2020-03-16] MEDS ORDERED: dextrose ORAL solution 15 GM/59 ML bottle PO PRN ×2 (08:50)
[2020-03-16] MEDS ORDERED: glucagon, human recombinant 1mg kit SUBCUT PRN (08:50)
[2020-03-16] MEDS ORDERED: dextrose 50%-water 50ml dispensing syringe IV PRN ×2 (08:50)
[2020-03-16] MEDS ORDERED: MESSAGE TO PHARMACY PO ONE (08:50)
[2020-03-16] MEDS: aspirin 81mg tablet.DR PO SCH (09:04)
[2020-03-16] MEDS: potassium chloride 10mEq ER tablet PO SCH (09:04)
[2020-03-16] MEDS: calcium carbonate/vitamin D3 tablet PO SCH ×2 (09:06→20:22)
[2020-03-16] MEDS: amitriptyline 10mg tablet PO SCH (09:06)
[2020-03-16] MEDS: pantoprazole 40mg Tablet.DR PO SCH (09:06)
[2020-03-16] MEDS: pregabalin 25mg capsule PO SCH ×3 (09:06→20:22)
[2020-03-16] MEDS: docusate sod 100mg capsule PO SCH (09:07)
[2020-03-16] MEDS: duloxetine 30mg CAPSULE.DR PO SCH (09:07)
[2020-03-16] MEDS: heparin, porcine 5000 units/ml vial SQ SCH ×2 (09:16→20:22)
[2020-03-16] MEDS: HYDROcodone/acetaminophen 10/325mg tab PO PRN ×2 (09:19→20:40)
[2020-03-16 10:09] LABS: HEMOGLOBIN A1C 11.5 % (4.5-6.2)
[2020-03-16] MEDS: insulin Lispro (HumaLOG) vial - multi-dose SQ SCH ×3 (11:06→18:56)
[2020-03-16 13:18] LABS: ALANINE AMINOTRANSFERASE 32 U/L (12-78); ALBUMIN/GLOBULIN RATIO 1.1 (1.1-1.5); ALKALINE PHOSPHATASE 93 IU/L (46-116); ANION GAP 8 (8-16); ASPARTATE AMINO TRANSFERASE 16 U/L (10-37); BILIRUBIN,TOTAL 0.4 MG/DL (0.1-1.0); BLOOD UREA NITROGEN 16 MG/DL (7-18); BUN/CREATININE RATIO 15.5 (6.6-38.0); CHLORIDE 107 MMOL/L (99-107); CREATININE 1.03 MG/DL (0.40-0.90); GLUCOSE 237 MG/DL (70-104); POTASSIUM 4.3 MMOL/L (3.5-5.1); SODIUM 138 MMOL/L (135-145); TOTAL CARBON DIOXIDE 22.7 MMOL/L (24-32); TOTAL PROTEIN 5.7 G/DL (6.4-8.2); eGFR 56 ML/MIN
--- NOTE | 2020-03-16 13:42 | NUR ---
PAGER ID: [phone] MESSAGE: [phone] Juana Ferrari blood sugar is increasing, current blood sugar 283. Covered per protocol. C02 22.7, anion gap 8. Electrolytes are good. Tonya AGUIRRE [phone]
[2020-03-16] MEDS ORDERED: insulin glargine (Lantus) pen - multi-dose SQ ONE (14:10)
--- NOTE | 2020-03-16 14:13 | NUR ---
Initial: Pt admit w/ DKA GLU 654 hx T1DM and numerous prior DKA admits A1C 11.5. Pt reports had insulin pump changed and currently cannot use it properly per EMR. A1C has been over 10 so far this year. Advanced to carb controlled diet PO 75-100% carbs only documented breakfast today pending further PO hx. Nausea and abdominal pain still present per EMR. LBM 03/16 receiving colace. Will continue to monitor. Rec: 1. continue carb controlled/heart healthy diet 2. monitor for ONS needs 3. bowel care as needed 4. wt per rx 5. DM ed once stable prior to discharge Addendum: 03/16/20 at [address] Amended: Links added.
--- NOTE | 2020-03-16 16:32 | NUR ---
PAGER ID: [phone] MESSAGE: [phone] Juana Ferrari, Pt. C/O severe right hip pain, stating she fell at home on her hip. Do you want an x-ray? Tonya AGUIRRE ext [phone]
--- NOTE | 2020-03-16 18:37 | NUR ---
Patient in room PCU 3018. I have received report from Mark AGUIRRE and Melba RN and had the opportunity to ask questions and assume patient care. Patient speaking on the phone, in good spirits and offers no complaints at the end of shift.
--- NOTE | 2020-03-16 18:44 | NUR ---
Patient in room PCU 3018. I have received report from Tonya AGUIRRE and had the opportunity to ask questions and assume patient care.
--- NOTE | 2020-03-16 18:46 | NUR ---
Patient in room PCU 3018A. I have received report from CARLA SKY and had the opportunity to ask questions and assume patient care. PATIENT AWAKE FOR BEDSIDE REPORT. NS INFUSING AT 100 ML/HR AND ON ROOM AIR. OFFERS NO COMPLAINTS AT THIS TIME. WILL CONTINUE TO MONITOR CLOSELY.
[2020-03-16] MEDS ORDERED: atorvastatin 10mg tablet PO SCH (21:00)
[2020-03-16] MEDS ORDERED: insulin glargine (Lantus) pen - multi-dose SQ SCH (21:00)
[2020-03-17 02:00] VITALS: BP 101/58
[2020-03-17] MEDS: HYDROcodone/acetaminophen 10/325mg tab PO PRN ×2 (04:28→09:37)
--- NOTE | 2020-03-17 06:18 | NUR ---
Problems reprioritized. Patient report given, questions answered & plan of care reviewed with Tonya AGUIRRE .
--- NOTE | 2020-03-17 06:23 | NUR ---
Patient in room PCU 3018. I have received report from Mark AGUIRRE and had the opportunity to ask questions and assume patient care.
--- NOTE | 2020-03-17 06:23 | NUR ---
ORIENTEE documentation: I have reviewed and agree with all interventions, assessments performed and documented by CARLA HOLLIDAY.
[2020-03-17 06:27] LABS: BASOPHILS % (AUTO) 0.5 % (0-1); EOSINOPHILS # (AUTO) 0.2 X10'3 (0-0.9); EOSINOPHILS % (AUTO) 2.4 % (0-6); HEMATOCRIT 33.2 % (35.0-45.0); HEMOGLOBIN 11.1 g/dl (12.0-16.0); LYMPHOCYTES # (AUTO) 2.6 X10'3 (1.1-4.8); LYMPHOCYTES % (AUTO) 37.4 % (21-51); MEAN CORPUSCULAR HEMOGLOBIN 29.3 PG (27.0-31.0); MEAN CORPUSCULAR HGB CONC 33.3 g/dL (33.0-36.5); MEAN PLATELET VOLUME 10.2 FL (7.4-10.4); MONOCYTES # (AUTO) 0.3 X10'3 (0-0.9); MONOCYTES % (AUTO) 4.6 % (2-12); NEUTROPHILS # (AUTO) 3.8 X10'3 (1.8-7.7); NEUTROPHILS % (AUTO) 55.1 % (42-75); PLATELET COUNT 145 X10'3 (140-440); RED BLOOD COUNT 3.78 X10'6 (4.20-5.60); RED CELL DISTRIBUTION WIDTH 14.1 % (11.5-14.5); WHITE BLOOD COUNT 6.9 X10'3 (4.5-11.0)
[2020-03-17 07:00] VITALS: BP 93/48
[2020-03-17 07:36] LABS: ALANINE AMINOTRANSFERASE 45 U/L (12-78); ALBUMIN 2.6 G/DL (3.4-5.0); ALKALINE PHOSPHATASE 80 IU/L (46-116); ANION GAP 8 (8-16); ASPARTATE AMINO TRANSFERASE 51 U/L (10-37); BILIRUBIN,TOTAL 0.3 MG/DL (0.1-1.0); BLOOD UREA NITROGEN 12 MG/DL (7-18); BUN/CREATININE RATIO 16.2 (6.6-38.0); CHLORIDE 107 MMOL/L (99-107); CREATININE 0.74 MG/DL (0.40-0.90); GLUCOSE 160 MG/DL (70-104); POTASSIUM 4.2 MMOL/L (3.5-5.1); SODIUM 139 MMOL/L (135-145); TOTAL CARBON DIOXIDE 23.9 MMOL/L (24-32); TOTAL PROTEIN 5.2 G/DL (6.4-8.2); eGFR 83 ML/MIN
[2020-03-17] MEDS: albuterol 2.5 MG/3 ML nebule NEB PRN (07:56)
[2020-03-17] MEDS: budesonide 0.5mg/2ml UD nebule IH SCH (07:56)
[2020-03-17 08:00] VITALS: BP_SYST 93
[2020-03-17] MEDS: lisinopril 2.5mg tablet PO SCH (08:00)
[2020-03-17] MEDS: HYDROchlorothiazide 25mg tablet PO SCH (08:00)
[2020-03-17] MEDS: docusate sod 100mg capsule PO SCH (08:00)
[2020-03-17] MEDS ORDERED: LANTUS SQ (08:16)
[2020-03-17] MEDS: pantoprazole 40mg Tablet.DR PO SCH (08:54)
[2020-03-17] MEDS: amitriptyline 10mg tablet PO SCH (08:54)
[2020-03-17] MEDS: aspirin 81mg tablet.DR PO SCH (08:54)
[2020-03-17] MEDS: calcium carbonate/vitamin D3 tablet PO SCH (08:54)
[2020-03-17] MEDS: potassium chloride 10mEq ER tablet PO SCH (08:55)
[2020-03-17] MEDS: pregabalin 25mg capsule PO SCH (08:55)
[2020-03-17] MEDS: heparin, porcine 5000 units/ml vial SQ SCH (08:55)
[2020-03-17] MEDS: duloxetine 30mg CAPSULE.DR PO SCH (08:55)
--- NOTE | 2020-03-17 09:59 | NUR ---
Patient cleared to discharge home. Medications and discharge instructions reviewed with patient. Patient stated she has needle tips for the lantus pen at home. 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 Patient stated she just saw her doctor that manages her CHF and declined a FU appointment. Tele removed. PIV X 2 removed with no difficulties. VSS at time of discharge. Educated patient on taking blood pressure meds. MD aware that BP meds were held this AM. Patients blood sugar was 160 and stated she will check her blood sugar at home and follow recommendations by MD. Pt. educated about diabetes, diet and skin care. Pt. verbalized understanding. Pt. got picked up by yellow CAB and left in stable condition.
== END 2020-03-17 10:01 | disposition home or self-care (01) | DRG 813 ==
LOC: ER 20:43 → ED HOLD 22:28 → PCU 3S 23:17
PROVIDERS: ADMIT Family Medicine; ATTEND Internal Medicine
DX: T85.618A Breakdown (mechanical) of other specified internal prosthetic devices, implants and grafts, initial encounter (principal); N17.0 Acute kidney failure with tubular necrosis; E11.10 Type 2 diabetes mellitus with ketoacidosis without coma; E87.1 Hypo-osmolality and hyponatremia; I48.91 Unspecified atrial fibrillation; E86.0 Dehydration; I50.9 Heart failure, unspecified; I11.0 Hypertensive heart disease with heart failure; E78.00 Pure hypercholesterolemia, unspecified; E78.5 Hyperlipidemia, unspecified; J45.909 Unspecified asthma, uncomplicated; Z96.41 Presence of insulin pump (external) (internal); G47.00 Insomnia, unspecified; G89.29 Other chronic pain; F32.9 Major depressive disorder, single episode, unspecified; F41.9 Anxiety disorder, unspecified; Y83.8 Other surgical procedures as the cause of abnormal reaction of the patient, or of later complication, without mention of misadventure at the time of the procedure; Z79.4 Long term (current) use of insulin; Z79.899 Other long term (current) drug therapy; Z85.41 Personal history of malignant neoplasm of cervix uteri; Z85.841 Personal history of malignant neoplasm of brain; Z90.710 Acquired absence of both cervix and uterus
CPT/HCPCS: 36415; 36600; 71045; 73502; 80048; 80053; 81001; 81025; 82009; 82803; 82948; 83036; 83690; 84100; 84484; 85018; 85025; 87081; 94640; 94760; 99285; G0378; J1644; J1815; J2405; J3480; J7030; J7626

== ENCOUNTER 2020-03-25 12:10 | Inpatient (IN) | payer MEDICAID ==
[~2020-03-25] VITALS: Ht 170.2 cm; Wt 69.9 kg
[~2020-03-25 12:10] MED LIST changes: -INSU100V11; -INSULIN PUMP; +LANTUS SQ; -LIRA0.6P2 SQ; -POTA10TA15 PO; +pantoprazole 40 MG vial IV SCH
[2020-03-25] MEDS ORDERED: normal saline 1000ml 1,000 ML IV ONE (12:51)
[2020-03-25] MEDS ORDERED: insulin regular, human U-100 3ml vial - multi-dose IV ONE (12:55)
[2020-03-25] MEDS ORDERED: insulin regular, human 10 units/0.1 ml syringe IV ONE (12:55)
[2020-03-25] MEDS ORDERED: normal saline 1000ML IV soln IVB ONE ×2 (12:55→13:45)
[2020-03-25] MEDS ORDERED: albuterol 2.5 MG/3 ML nebule NEB SCH (13:00)
[2020-03-25] MEDS ORDERED: metoclopramide 5 mg/ml inj IV ONE (13:50)
[2020-03-25] MEDS ORDERED: morphine 2 MG/ML inj. syringe IV ONE (13:50)
[2020-03-25 13:55] LABS: ALANINE AMINOTRANSFERASE 89 U/L (12-78); ALBUMIN 4.1 G/DL (3.4-5.0); ALKALINE PHOSPHATASE 206 IU/L (46-116); ANION GAP 33 (8-16); ASPARTATE AMINO TRANSFERASE 36 U/L (10-37); BILIRUBIN,TOTAL 0.7 MG/DL (0.1-1.0); BLOOD UREA NITROGEN 40 MG/DL (7-18); BUN/CREATININE RATIO 22.7 (6.6-38.0); CHLORIDE 92 MMOL/L (99-107); CREATININE 1.76 MG/DL (0.40-0.90); LIPASE 71 U/L (73-393); SODIUM 132 MMOL/L (135-145); TOTAL PROTEIN 8.1 G/DL (6.4-8.2); eGFR 30 ML/MIN
[2020-03-25 13:57] LABS: GLUCOSE 718 MG/DL (70-104); POTASSIUM 6.2 MMOL/L (3.5-5.1); TOTAL CARBON DIOXIDE 6.6 MMOL/L (24-32)
[2020-03-25 14:00] LABS: HEMATOCRIT 47.6 % (35.0-45.0); HEMOGLOBIN 15.9 g/dl (12.0-16.0); MEAN CORPUSCULAR HEMOGLOBIN 29.4 PG (27.0-31.0); MEAN CORPUSCULAR HGB CONC 33.3 g/dL (33.0-36.5); MEAN CORPUSCULAR VOLUME 88.1 FL (78-98); MEAN PLATELET VOLUME 9.9 FL (7.4-10.4); PLATELET COUNT 288 X10'3 (140-440); WHITE BLOOD COUNT 19.5 X10'3 (4.5-11.0)
[2020-03-25 14:04] LABS: BASOPHILS % (AUTO) 0.4 % (0-1); EOSINOPHILS % (AUTO) 0.1 % (0-6); LYMPHOCYTES % (AUTO) 5.6 % (21-51); MONOCYTES % (AUTO) 3.5 % (2-12); NEUTROPHILS % (AUTO) 90.4 % (42-75)
[2020-03-25 14:05] LABS: NEUTROPHILS # (AUTO) 17.6 X10'3 (1.8-7.7)
[2020-03-25 14:06] LABS: BASOPHILS # (AUTO) 0.8 X10'3 (0-0.2); EOSINOPHILS # (AUTO) 0.2 X10'3 (0-0.9); LYMPHOCYTES # (AUTO) 10.9 X10'3 (1.1-4.8); MONOCYTES # (AUTO) 6.8 X10'3 (0-0.9)
[2020-03-25 14:12] LABS: PLATELET ESTIMATE NORMAL; TOTAL CELLS COUNTED 100
[2020-03-25] MEDS: normal saline 1000ml 1,000 ML IV SCH ×6 (14:25→22:25)
[2020-03-25] MEDS ORDERED: Neutra Phos packet PO PRN (14:25)
[2020-03-25] MEDS ORDERED: LIDOcaine 2% 10ml TOPICAL JELLY (Urojet) TP ONE (14:25)
[2020-03-25] MEDS ORDERED: insulin regular, human U-100 3ml vial - multi-dose IV PRN (14:25)
[2020-03-25] MEDS ORDERED: sodium bicarbonate (8.4%) inj. 50 MEQ in dextrose 5% water 500ml 250 ML IV PRN (14:25)
[2020-03-25] MEDS ORDERED: sodium phosphate inj. 30 MMOL in dextrose 5%-water 240 ML IV PRN (14:25)
[2020-03-25] MEDS ORDERED: magnesium 4gm in 100ml NS 100 ML IV PRN (14:25)
[2020-03-25] MEDS ORDERED: acetaminophen 325mg tablet PO PRN ×2 (14:25)
[2020-03-25] MEDS ORDERED: magnesium 2GM in 50ml NS 50 ML IV PRN (14:25)
[2020-03-25] MEDS ORDERED: potassium Cl 20 mEq SR tablet PO PRN ×4 (14:25)
[2020-03-25] MEDS ORDERED: Insulin Reg/NS 100units/100mL 100 ML IV SCH (14:25)
[2020-03-25] MEDS ORDERED: potassium CL 10mEq/100ml bag 100 ML IV PRN ×2 (14:25)
[2020-03-25] MEDS ORDERED: magnesium Cl slow-release 64mg tablet PO PRN (14:25)
[2020-03-25] MEDS ORDERED: magnesium hydroxide 30ml (MOM) UD suspension PO PRN (14:25)
[2020-03-25] MEDS ORDERED: sodium phosphate inj. 15 MMOL in dextrose 5%-water 245 ML IV PRN (14:25)
[2020-03-25] MEDS ORDERED: sodium bicarbonate (8.4%) inj. 100 MEQ in dextrose 5% water 500ml 500 ML IV PRN (14:25)
[2020-03-25] MEDS ORDERED: non-formulary drug (Alendronate Sodium 1 TABLET) PO SCH (14:40)
[2020-03-25 14:47] LABS: CLARITY,URINE SLIGHTLY CLOUDY (Clear); COLOR,URINE YELLOW (Yellow); GLUCOSE, URINE >=1000 mg/dl (Neg); KETONES,URINE >=80 mg/dl (Neg); LEUKOCYTE ESTERASE ,URINE NEGATIVE (Neg); NITRITES, URINE NEGATIVE (Neg); OCCULT BLOOD,URINE TRACE-INTACT (Neg); PH,URINE 5.5 (4.8-8.0); PROTEIN,URINE NEGATIVE (Neg); UROBILINOGEN,URINE 0.2 E.U/dL (0.2-1.0)
[2020-03-25 14:48] LABS: UA COLLECTION TYPE NON-SPECIFIED; URINE HCG NEGATIVE (NEG)
[2020-03-25 14:53] LABS: MUCUS STRANDS FEW /LPF (Neg); SQUAMOUS EPITHELIAL CELL,UR FEW /LPF (FEW)
[2020-03-25 14:54] LABS: BACTERIA,URINE FEW /HPF (Neg); RBC,URINE 0-2 /HPF (0-2); WBC,URINE 0-4 /HPF (0-4); YEAST FEW /HPF (NEGATIVE)
[2020-03-25] MEDS: pregabalin 25mg capsule PO SCH ×3 (14:56→21:00)
[2020-03-25 15:14] LABS: ALBUMIN 3.5 G/DL (3.4-5.0); BLOOD UREA NITROGEN 38 MG/DL (7-18); BUN/CREATININE RATIO 22.9 (6.6-38.0); CALCIUM 8.8 MG/DL (8.5-10.1); CHLORIDE 98 MMOL/L (99-107); CREATININE 1.66 MG/DL (0.40-0.90); PHOSPHORUS 6.8 MG/DL (2.3-4.5); SODIUM 137 MMOL/L (135-145); eGFR 33 ML/MIN
[2020-03-25] MEDS: Insulin Reg/NS 100units/100mL 100 ML IV SCH ×2 (15:19→23:47)
[2020-03-25 15:24] LABS: POTASSIUM 5.1 MMOL/L (3.5-5.1)
[2020-03-25 15:28] LABS: GLUCOSE 606 MG/DL (70-104)
[2020-03-25 15:30] LABS: ANION GAP 34 (8-16); TOTAL CARBON DIOXIDE < 5 MMOL/L (24-32)
[2020-03-25] MEDS ORDERED: INSU100V43 SQ (15:45)
[2020-03-25] MEDS ORDERED: APIX5TAB3 PO (15:45)
[2020-03-25] MEDS ORDERED: POTA10TA36 PO (15:45)
[2020-03-25] MEDS: pantoprazole 40 MG vial IV SCH (17:13)
[2020-03-25] MEDS: morphine 2 MG/ML inj. syringe IV PRN (17:16)
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
[2020-03-25 19:01] LABS: ALBUMIN 2.9 G/DL (3.4-5.0); ANION GAP 20 (8-16); BLOOD UREA NITROGEN 29 MG/DL (7-18); BUN/CREATININE RATIO 22.8 (6.6-38.0); CALCIUM 7.6 MG/DL (8.5-10.1); CHLORIDE 110 MMOL/L (99-107); CREATININE 1.27 MG/DL (0.40-0.90); GLUCOSE 223 MG/DL (70-104); PHOSPHORUS 2.9 MG/DL (2.3-4.5); POTASSIUM 4.5 MMOL/L (3.5-5.1); SODIUM 141 MMOL/L (135-145); eGFR 44 ML/MIN
[2020-03-25] MEDS: K, MAG and/or Phos replacement - Verify level? MC SCH (19:10)
[2020-03-25 19:17] LABS: TOTAL CARBON DIOXIDE 11.2 MMOL/L (24-32)
[2020-03-25] MEDS: potassium CL 20mEq in D5-1/2NS 1,000 ML IV PRN (19:46)
[2020-03-25] MEDS: K and/or MAG REPLACEMENT MC SCH (20:00)
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
[2020-03-25] MEDS: calcium carbonate/vitamin D3 tablet PO SCH (20:20)
[2020-03-25] MEDS: neomy sulf/polymyx B sulf/HC 10ml otic suspension EACH EAR SCH ×2 (20:20→21:00)
[2020-03-25] MEDS: docusate sod 100mg capsule PO SCH (20:20)
--- NOTE | 2020-03-25 20:20 | NUR ---
Patient arrived to unit, after receiving report from Bossman AGUIRRE in ED. patient arrived via gurney, transferred to bed via slide board, IV insulin and D5 1/2NS with 20mEq of K, infusing via PIVx2, all monitoring equipment applied to patient, patient orientated to room and educated regarding plan of care. See IV flowsheet, interventions and EMR for further information.
[2020-03-25 21:00] VITALS: BP 94/47
[2020-03-25] MEDS: atorvastatin 10mg tablet PO SCH (21:00)
[2020-03-25] MEDS: budesonide 0.5mg/2ml UD nebule IH SCH (21:05)
[2020-03-25] MEDS: albuterol 2.5 MG/3 ML nebule NEB SCH (21:06)
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
[2020-03-25 22:00] VITALS: BP 103/52
[2020-03-25 22:34] LABS: ALBUMIN 2.9 G/DL (3.4-5.0); ANION GAP 15 (8-16); BLOOD UREA NITROGEN 25 MG/DL (7-18); BUN/CREATININE RATIO 20.8 (6.6-38.0); CALCIUM 7.8 MG/DL (8.5-10.1); CHLORIDE 110 MMOL/L (99-107); GLUCOSE 213 MG/DL (70-104); PHOSPHORUS 2.6 MG/DL (2.3-4.5); POTASSIUM 4.8 MMOL/L (3.5-5.1); SODIUM 140 MMOL/L (135-145); TOTAL CARBON DIOXIDE 15.3 MMOL/L (24-32); eGFR 47 ML/MIN
[2020-03-25 23:00] VITALS: BP 101/50
[2020-03-25] MEDS: heparin, porcine 5000 units/ml vial SQ SCH (23:05)
[2020-03-25] MEDS ORDERED: normal saline 1000ml 1,000 ML IVB ONE (23:53)
[2020-03-26] VITALS (23 sets, daily range): BP systolic 75–112; BP diastolic 34–67
[2020-03-26] MEDS: morphine 2 MG/ML inj. syringe IV PRN ×2 (00:18→10:25)
[2020-03-26] MEDS ORDERED: normal saline 1000ml 1,000 ML IV ONE ×3 (00:45→03:55)
[2020-03-26] MEDS: potassium CL 20mEq in D5-1/2NS 1,000 ML IV PRN ×3 (02:13→22:05)
[2020-03-26] MEDS: normal saline 1000ml 1,000 ML IV SCH ×8 (02:25→22:25)
[2020-03-26] MEDS: Insulin Reg/NS 100units/100mL 100 ML IV SCH ×2 (04:08→12:03)
[2020-03-26 05:34] LABS: BASOPHILS % (AUTO) 0.2 % (0-1); EOSINOPHILS % (AUTO) 0.1 % (0-6); HEMATOCRIT 32.2 % (35.0-45.0); HEMOGLOBIN 10.5 g/dl (12.0-16.0); LYMPHOCYTES # (AUTO) 2.3 X10'3 (1.1-4.8); LYMPHOCYTES % (AUTO) 18.7 % (21-51); MEAN CORPUSCULAR HEMOGLOBIN 29.2 PG (27.0-31.0); MEAN CORPUSCULAR HGB CONC 32.7 g/dL (33.0-36.5); MEAN CORPUSCULAR VOLUME 89.3 FL (78-98); MEAN PLATELET VOLUME 9.1 FL (7.4-10.4); MONOCYTES # (AUTO) 0.9 X10'3 (0-0.9); MONOCYTES % (AUTO) 7.1 % (2-12); NEUTROPHILS # (AUTO) 8.9 X10'3 (1.8-7.7); NEUTROPHILS % (AUTO) 73.9 % (42-75); PLATELET COUNT 173 X10'3 (140-440); RED BLOOD COUNT 3.61 X10'6 (4.20-5.60); RED CELL DISTRIBUTION WIDTH 14.2 % (11.5-14.5); WHITE BLOOD COUNT 12.1 X10'3 (4.5-11.0)
[2020-03-26 05:52] LABS: ALANINE AMINOTRANSFERASE 49 U/L (12-78); ALBUMIN 2.3 G/DL (3.4-5.0); ALBUMIN/GLOBULIN RATIO 0.9 (1.1-1.5); ALKALINE PHOSPHATASE 113 IU/L (46-116); ANION GAP 10 (8-16); ASPARTATE AMINO TRANSFERASE 23 U/L (10-37); BILIRUBIN,TOTAL 0.4 MG/DL (0.1-1.0); BLOOD UREA NITROGEN 19 MG/DL (7-18); CALCIUM 6.9 MG/DL (8.5-10.1); CHLORIDE 116 MMOL/L (99-107); GLUCOSE 99 MG/DL (70-104); MAGNESIUM 1.6 MG/DL (1.5-2.4); PHOSPHORUS 1.7 MG/DL (2.3-4.5); POTASSIUM 3.9 MMOL/L (3.5-5.1); SODIUM 144 MMOL/L (135-145); TOTAL PROTEIN 4.8 G/DL (6.4-8.2); eGFR 58 ML/MIN
--- NOTE | 2020-03-26 06:30 | NUR ---
Patient in room ICU 2040. I have received report from Holly AGUIRRE and had the opportunity to ask questions and assume patient care.
--- NOTE | 2020-03-26 07:05 | NUR ---
Spoke with Marky MORALES who states that due to blood sugar being 120 insulin drip will remain off. Attempt to have patient eat something small to ensure she can tolerate after nausea last night. Wait 1 hour to check and notify Dr. Chun for further orders. Will continue to monitor.
[2020-03-26] MEDS: albuterol 2.5 MG/3 ML nebule NEB SCH ×4 (07:53→19:23)
[2020-03-26] MEDS: budesonide 0.5mg/2ml UD nebule IH SCH ×2 (07:53→19:23)
[2020-03-26] MEDS ORDERED: docusate sod 100mg capsule PO SCH (08:00)
[2020-03-26] MEDS: K and/or MAG REPLACEMENT MC SCH ×2 (08:00→20:00)
[2020-03-26] MEDS: K, MAG and/or Phos replacement - Verify level? MC SCH (08:00)
[2020-03-26] MEDS: lisinopril 2.5mg tablet PO SCH (08:00)
[2020-03-26] MEDS ORDERED: dextrose 50%-water 50ml dispensing syringe IV PRN ×3 (08:10→11:30)
[2020-03-26] MEDS ORDERED: glucagon, human recombinant 1mg kit SUBCUT PRN (08:10)
[2020-03-26] MEDS ORDERED: MESSAGE TO PHARMACY PO ONE (08:10)
[2020-03-26] MEDS ORDERED: dextrose ORAL solution 15 GM/59 ML bottle PO PRN (08:10)
[2020-03-26] MEDS ORDERED: albumin (human) 25% 100 ML IV solution IV ONE (08:10)
--- NOTE | 2020-03-26 09:00 | NUR ---
Waiting for humalog from pharmacy. Blood glucose now 234, received order from Dr. Chun to continue with hyperglycemic protocol for now. Will continue to monitor.
[2020-03-26] MEDS: insulin Lispro (HumaLOG) vial - multi-dose SQ SCH ×5 (09:28→14:05)
[2020-03-26] MEDS: pantoprazole 40 MG vial IV SCH (09:42)
[2020-03-26] MEDS: heparin, porcine 5000 units/ml vial SQ SCH ×2 (09:43→21:01)
[2020-03-26] MEDS: pregabalin 25mg capsule PO SCH ×3 (09:45→21:02)
[2020-03-26] MEDS: amitriptyline 10mg tablet PO SCH (09:47)
[2020-03-26] MEDS: docusate sod 100mg capsule PO SCH ×2 (09:47→21:03)
[2020-03-26] MEDS: aspirin 81mg tab.chew PO SCH (09:47)
[2020-03-26] MEDS: duloxetine 30mg CAPSULE.DR PO SCH (09:47)
[2020-03-26] MEDS: calcium carbonate/vitamin D3 tablet PO SCH ×2 (09:48→21:02)
[2020-03-26] MEDS: neomy sulf/polymyx B sulf/HC 10ml otic suspension EACH EAR SCH ×4 (09:57→21:03)
[2020-03-26] MEDS: ondansetron/PF 4mg/2ml inj IV PRN ×2 (10:23→20:10)
[2020-03-26 10:59] LABS: ALANINE AMINOTRANSFERASE 70 U/L (12-78); ALBUMIN 3.1 G/DL (3.4-5.0); ALBUMIN/GLOBULIN RATIO 1.1 (1.1-1.5); ALKALINE PHOSPHATASE 119 IU/L (46-116); ANION GAP 16 (8-16); ASPARTATE AMINO TRANSFERASE 52 U/L (10-37); BILIRUBIN,TOTAL 0.5 MG/DL (0.1-1.0); BLOOD UREA NITROGEN 15 MG/DL (7-18); BUN/CREATININE RATIO 16.3 (6.6-38.0); CALCIUM 7.6 MG/DL (8.5-10.1); CHLORIDE 108 MMOL/L (99-107); CREATININE 0.92 MG/DL (0.40-0.90); GLUCOSE 293 MG/DL (70-104); POTASSIUM 4.3 MMOL/L (3.5-5.1); SODIUM 138 MMOL/L (135-145); TOTAL PROTEIN 5.8 G/DL (6.4-8.2); eGFR 64 ML/MIN
[2020-03-26 11:00] LABS: MAGNESIUM 1.7 MG/DL (1.5-2.4); TOTAL CARBON DIOXIDE 13.9 MMOL/L (24-32)
--- NOTE | 2020-03-26 11:30 | NUR ---
Notified Dr. Chun of patient's CO2 of 13.9, anion gap of 16. Received order to start insulin drip and replace phos. Will continue to monitor.
[2020-03-26] MEDS: metoclopramide 5 mg/ml inj IV PRN ×2 (14:08→21:50)
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
[2020-03-26 16:16] LABS: ALANINE AMINOTRANSFERASE 82 U/L (12-78); ALBUMIN 2.9 G/DL (3.4-5.0); ALBUMIN/GLOBULIN RATIO 1.2 (1.1-1.5); ALKALINE PHOSPHATASE 108 IU/L (46-116); ANION GAP 13 (8-16); ASPARTATE AMINO TRANSFERASE 84 U/L (10-37); BILIRUBIN,TOTAL 0.4 MG/DL (0.1-1.0); BLOOD UREA NITROGEN 13 MG/DL (7-18); BUN/CREATININE RATIO 12.9 (6.6-38.0); CALCIUM 7.5 MG/DL (8.5-10.1); CHLORIDE 110 MMOL/L (99-107); CREATININE 1.01 MG/DL (0.40-0.90); GLUCOSE 239 MG/DL (70-104); POTASSIUM 3.8 MMOL/L (3.5-5.1); SODIUM 139 MMOL/L (135-145); TOTAL CARBON DIOXIDE 16.3 MMOL/L (24-32); TOTAL PROTEIN 5.4 G/DL (6.4-8.2); eGFR 58 ML/MIN
--- NOTE | 2020-03-26 17:12 | NUR ---
When patient is awake states pain and resting now. Ambulation held for this shift, did walk with PT early in shift. Will continue to monitor.
--- NOTE | 2020-03-26 18:35 | NUR ---
Problems reprioritized. Patient report given, questions answered & plan of care reviewed with Mac RN.
[2020-03-26] MEDS: HYDROcodone/acetaminophen 10/325mg tab PO PRN (21:02)
[2020-03-26 21:27] LABS: ALANINE AMINOTRANSFERASE 86 U/L (12-78); ALBUMIN 2.8 G/DL (3.4-5.0); ALBUMIN/GLOBULIN RATIO 1.1 (1.1-1.5); ALKALINE PHOSPHATASE 109 IU/L (46-116); ANION GAP 9 (8-16); ASPARTATE AMINO TRANSFERASE 98 U/L (10-37); BILIRUBIN,TOTAL 0.4 MG/DL (0.1-1.0); BLOOD UREA NITROGEN 12 MG/DL (7-18); CALCIUM 7.7 MG/DL (8.5-10.1); CHLORIDE 110 MMOL/L (99-107); CREATININE 0.92 MG/DL (0.40-0.90); GLUCOSE 168 MG/DL (70-104); POTASSIUM 3.9 MMOL/L (3.5-5.1); SODIUM 138 MMOL/L (135-145); TOTAL CARBON DIOXIDE 18.8 MMOL/L (24-32); TOTAL PROTEIN 5.4 G/DL (6.4-8.2); eGFR 64 ML/MIN
[2020-03-26] MEDS: atorvastatin 10mg tablet PO SCH (21:38)
[2020-03-26] MEDS: insulin glargine (Lantus) pen - multi-dose SQ SCH (21:40)
[2020-03-27] VITALS (16 sets, daily range): BP systolic 72–143; BP diastolic 41–81
[2020-03-27] MEDS: HYDROcodone/acetaminophen 10/325mg tab PO PRN ×2 (02:08→20:10)
[2020-03-27] MEDS: normal saline 1000ml 1,000 ML IV SCH ×4 (02:25→19:45)
[2020-03-27] MEDS: LIDOcaine 5% patch TP SCH ×2 (04:00→08:23)
[2020-03-27 04:31] LABS: BASOPHILS # (AUTO) 0.1 X10'3 (0-0.2); BASOPHILS % (AUTO) 0.5 % (0-1); EOSINOPHILS # (AUTO) 0.1 X10'3 (0-0.9); EOSINOPHILS % (AUTO) 1.1 % (0-6); HEMATOCRIT 33.6 % (35.0-45.0); LYMPHOCYTES # (AUTO) 2.1 X10'3 (1.1-4.8); LYMPHOCYTES % (AUTO) 22.1 % (21-51); MEAN CORPUSCULAR HEMOGLOBIN 29.7 PG (27.0-31.0); MEAN CORPUSCULAR HGB CONC 32.9 g/dL (33.0-36.5); MEAN CORPUSCULAR VOLUME 90.3 FL (78-98); MEAN PLATELET VOLUME 8.6 FL (7.4-10.4); MONOCYTES # (AUTO) 0.5 X10'3 (0-0.9); MONOCYTES % (AUTO) 5.4 % (2-12); NEUTROPHILS # (AUTO) 6.9 X10'3 (1.8-7.7); NEUTROPHILS % (AUTO) 70.9 % (42-75); PLATELET COUNT 165 X10'3 (140-440); RED BLOOD COUNT 3.72 X10'6 (4.20-5.60); WHITE BLOOD COUNT 9.7 X10'3 (4.5-11.0)
[2020-03-27 04:46] LABS: ALANINE AMINOTRANSFERASE 91 U/L (12-78); ALBUMIN 2.7 G/DL (3.4-5.0); ALKALINE PHOSPHATASE 112 IU/L (46-116); ANION GAP 8 (8-16); ASPARTATE AMINO TRANSFERASE 100 U/L (10-37); BILIRUBIN,TOTAL 0.4 MG/DL (0.1-1.0); BLOOD UREA NITROGEN 10 MG/DL (7-18); BUN/CREATININE RATIO 11.4 (6.6-38.0); CALCIUM 7.9 MG/DL (8.5-10.1); CHLORIDE 109 MMOL/L (99-107); CREATININE 0.88 MG/DL (0.40-0.90); GLUCOSE 214 MG/DL (70-104); MAGNESIUM 1.7 MG/DL (1.5-2.4); PHOSPHORUS 1.9 MG/DL (2.3-4.5); POTASSIUM 4.1 MMOL/L (3.5-5.1); SODIUM 138 MMOL/L (135-145); TOTAL CARBON DIOXIDE 21.3 MMOL/L (24-32); TOTAL PROTEIN 5.3 G/DL (6.4-8.2); eGFR 68 ML/MIN
[2020-03-27] MEDS: potassium CL 20mEq in D5-1/2NS 1,000 ML IV PRN (04:56)
[2020-03-27] MEDS ORDERED: MESSAGE TO NURSING IV ONE (05:00)
[2020-03-27] MEDS ORDERED: ringers solution, lacted 1,000 ML IV SCH (05:00)
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
[2020-03-27] MEDS: Insulin Reg/NS 100units/100mL 100 ML IV SCH (05:16)
[2020-03-27] MEDS ORDERED: famotidine 20mg tablet PO ONE (05:30)
--- NOTE | 2020-03-27 06:30 | NUR ---
Patient in room PCU 3017. I have received report from Mac RN and had the opportunity to ask questions and assume patient care.
[2020-03-27] MEDS: albuterol 2.5 MG/3 ML nebule NEB SCH ×3 (07:05→20:05)
[2020-03-27] MEDS: budesonide 0.5mg/2ml UD nebule IH SCH ×2 (07:05→20:05)
[2020-03-27] MEDS: lisinopril 2.5mg tablet PO SCH (08:00)
[2020-03-27] MEDS: K, MAG and/or Phos replacement - Verify level? MC SCH (08:00)
[2020-03-27] MEDS: K and/or MAG REPLACEMENT MC SCH ×2 (08:00→20:00)
[2020-03-27] MEDS: pregabalin 25mg capsule PO SCH ×3 (08:21→20:11)
[2020-03-27] MEDS: duloxetine 30mg CAPSULE.DR PO SCH (08:21)
[2020-03-27] MEDS: docusate sod 100mg capsule PO SCH ×2 (08:22→20:09)
[2020-03-27] MEDS: aspirin 81mg tab.chew PO SCH (08:22)
[2020-03-27] MEDS: amitriptyline 10mg tablet PO SCH (08:22)
[2020-03-27] MEDS: pantoprazole 40 MG vial IV SCH (08:22)
[2020-03-27] MEDS: calcium carbonate/vitamin D3 tablet PO SCH ×2 (08:22→20:09)
[2020-03-27] MEDS: heparin, porcine 5000 units/ml vial SQ SCH ×2 (08:23→20:11)
[2020-03-27] MEDS: neomy sulf/polymyx B sulf/HC 10ml otic suspension EACH EAR SCH ×4 (08:27→20:12)
[2020-03-27] MEDS: morphine 2 MG/ML inj. syringe IV PRN (08:36)
--- NOTE | 2020-03-27 09:00 | NUR ---
Discussed with Dr. Chun that the patient's anion gap had closed and COs is above 20. Received order to resume Hyperglycemic protocol and keep insulin drip on for 1 hour to stabilize blood glucose. Will continue to monitor.
[2020-03-27] MEDS: insulin Lispro (HumaLOG) vial - multi-dose SQ SCH ×3 (09:15→18:35)
--- NOTE | 2020-03-27 10:54 | NUR ---
Malnutrition consult: Pt has no significant edema/wounds, current BMI 27 w/ stable wt hx since October this year, and PO increasing to 75-100% dinner last night. At this time pt does not meet minimum malnutrition criteria; will continue to monitor. Addendum: 03/27/20 at [address] Amended: Links added.
--- NOTE | 2020-03-27 11:00 | NUR ---
Gave report to Josh AGUIRRE on PCU, denied any further questions. Will continue to monitor.
--- NOTE | 2020-03-27 11:04 | NUR ---
Patient in room ICU 2040 will be transferred to U 3018B. I have received report from Cassie AGUIRRE and had the opportunity to ask questions and assume patient care.
[2020-03-27 11:30] LABS: ALANINE AMINOTRANSFERASE 108 U/L (12-78); ALBUMIN/GLOBULIN RATIO 1.1 (1.1-1.5); ALKALINE PHOSPHATASE 119 IU/L (46-116); ANION GAP 9 (8-16); ASPARTATE AMINO TRANSFERASE 121 U/L (10-37); BILIRUBIN,TOTAL 0.4 MG/DL (0.1-1.0); BLOOD UREA NITROGEN 9 MG/DL (7-18); BUN/CREATININE RATIO 9.7 (6.6-38.0); CHLORIDE 107 MMOL/L (99-107); CREATININE 0.93 MG/DL (0.40-0.90); GLUCOSE 133 MG/DL (70-104); POTASSIUM 4.3 MMOL/L (3.5-5.1); SODIUM 138 MMOL/L (135-145); TOTAL PROTEIN 5.8 G/DL (6.4-8.2); eGFR 64 ML/MIN
--- NOTE | 2020-03-27 11:30 | NUR ---
Patient escorted by myself to 3017A in a wheelchair with all belongings. Medications provided to Josh AGUIRRE and belongings left at bedside. Josh AGUIRRE assumed care.
[2020-03-27] MEDS: ondansetron/PF 4mg/2ml inj IV PRN ×2 (14:10→20:24)
--- NOTE | 2020-03-27 15:49 | NUR ---
Pt refuses RT breathing treatment due to patient on important phone call in regards to placement, pt denies sob, will continue to monitor.
[2020-03-27 17:46] LABS: ALANINE AMINOTRANSFERASE 113 U/L (12-78); ALBUMIN 2.9 G/DL (3.4-5.0); ALBUMIN/GLOBULIN RATIO 1.1 (1.1-1.5); ALKALINE PHOSPHATASE 118 IU/L (46-116); ANION GAP 6 (8-16); ASPARTATE AMINO TRANSFERASE 143 U/L (10-37); BILIRUBIN,TOTAL 0.3 MG/DL (0.1-1.0); BLOOD UREA NITROGEN 10 MG/DL (7-18); BUN/CREATININE RATIO 11.8 (6.6-38.0); CALCIUM 8.3 MG/DL (8.5-10.1); CHLORIDE 107 MMOL/L (99-107); CREATININE 0.85 MG/DL (0.40-0.90); GLUCOSE 135 MG/DL (70-104); POTASSIUM 4.5 MMOL/L (3.5-5.1); SODIUM 138 MMOL/L (135-145); TOTAL CARBON DIOXIDE 24.6 MMOL/L (24-32); TOTAL PROTEIN 5.6 G/DL (6.4-8.2); eGFR 71 ML/MIN
--- NOTE | 2020-03-27 18:33 | NUR ---
Problems reprioritized. Patient report given, questions answered & plan of care reviewed with Melba AGUIRRE.
--- NOTE | 2020-03-27 18:43 | NUR ---
Patient in room PCU 3017. I have received report from Josh AGUIRRE and had the opportunity to ask questions and assume patient care.
[2020-03-27] MEDS: atorvastatin 10mg tablet PO SCH (20:09)
[2020-03-27] MEDS ORDERED: insulin glargine (Lantus) pen - multi-dose SQ SCH (21:00)
[2020-03-27] MEDS: insulin glargine (Lantus) pen - multi-dose SQ SCH (21:14)
[2020-03-27 23:21] LABS: ALANINE AMINOTRANSFERASE 134 U/L (12-78); ALBUMIN 2.9 G/DL (3.4-5.0); ALBUMIN/GLOBULIN RATIO 1.1 (1.1-1.5); ALKALINE PHOSPHATASE 125 IU/L (46-116); ANION GAP 4 (8-16); ASPARTATE AMINO TRANSFERASE 169 U/L (10-37); BILIRUBIN,TOTAL 0.4 MG/DL (0.1-1.0); BLOOD UREA NITROGEN 11 MG/DL (7-18); CALCIUM 8.3 MG/DL (8.5-10.1); CHLORIDE 108 MMOL/L (99-107); CREATININE 0.92 MG/DL (0.40-0.90); GLUCOSE 163 MG/DL (70-104); POTASSIUM 4.1 MMOL/L (3.5-5.1); SODIUM 137 MMOL/L (135-145); TOTAL CARBON DIOXIDE 25.4 MMOL/L (24-32); TOTAL PROTEIN 5.6 G/DL (6.4-8.2); eGFR 64 ML/MIN
[2020-03-28 02:00] VITALS: BP 126/74
[2020-03-28] MEDS: HYDROcodone/acetaminophen 10/325mg tab PO PRN ×3 (02:28→22:25)
[2020-03-28 05:21] LABS: BASOPHILS # (AUTO) 0.1 X10'3 (0-0.2); BASOPHILS % (AUTO) 0.9 % (0-1); EOSINOPHILS # (AUTO) 0.1 X10'3 (0-0.9); LYMPHOCYTES % (AUTO) 33.6 % (21-51); MEAN CORPUSCULAR HEMOGLOBIN 29.2 PG (27.0-31.0); MEAN CORPUSCULAR HGB CONC 33.4 g/dL (33.0-36.5); MEAN CORPUSCULAR VOLUME 87.6 FL (78-98); MEAN PLATELET VOLUME 9.2 FL (7.4-10.4); MONOCYTES # (AUTO) 0.4 X10'3 (0-0.9); MONOCYTES % (AUTO) 6.8 % (2-12); NEUTROPHILS # (AUTO) 3.3 X10'3 (1.8-7.7); NEUTROPHILS % (AUTO) 56.7 % (42-75); PLATELET COUNT 153 X10'3 (140-440); RED BLOOD COUNT 3.76 X10'6 (4.20-5.60); RED CELL DISTRIBUTION WIDTH 14.3 % (11.5-14.5); WHITE BLOOD COUNT 5.9 X10'3 (4.5-11.0)
[2020-03-28 05:36] LABS: ALANINE AMINOTRANSFERASE 155 U/L (12-78); ALBUMIN 2.8 G/DL (3.4-5.0); ALKALINE PHOSPHATASE 122 IU/L (46-116); ANION GAP 5 (8-16); ASPARTATE AMINO TRANSFERASE 209 U/L (10-37); BILIRUBIN,TOTAL 0.7 MG/DL (0.1-1.0); BLOOD UREA NITROGEN 10 MG/DL (7-18); BUN/CREATININE RATIO 13.3 (6.6-38.0); CALCIUM 8.4 MG/DL (8.5-10.1); CHLORIDE 108 MMOL/L (99-107); CREATININE 0.75 MG/DL (0.40-0.90); GLUCOSE 110 MG/DL (70-104); MAGNESIUM 1.6 MG/DL (1.5-2.4); PHOSPHORUS 2.2 MG/DL (2.3-4.5); POTASSIUM 4.5 MMOL/L (3.5-5.1); SODIUM 140 MMOL/L (135-145); TOTAL CARBON DIOXIDE 26.7 MMOL/L (24-32); TOTAL PROTEIN 5.5 G/DL (6.4-8.2); eGFR 81 ML/MIN
[2020-03-28 06:00] VITALS: BP 123/89
--- NOTE | 2020-03-28 06:04 | NUR ---
Problems reprioritized. Patient report given, questions answered & plan of care reviewed with Josh AGUIRRE and Eddie AGUIRRE.
--- NOTE | 2020-03-28 06:25 | NUR ---
Patient in room PCU 3017. I have received report from Melba AGUIRRE and had the opportunity to ask questions and assume patient care.
--- NOTE | 2020-03-28 06:26 | NUR ---
Patient in room PCU 3017. I have received report from Melba AGUIRRE and had the opportunity to ask questions and assume patient care.
[2020-03-28] MEDS: pantoprazole 40mg Tablet.DR PO SCH (06:45)
[2020-03-28] MEDS: ondansetron/PF 4mg/2ml inj IV PRN ×3 (06:46→20:25)
[2020-03-28] MEDS: budesonide 0.5mg/2ml UD nebule IH SCH ×2 (07:09→19:11)
[2020-03-28] MEDS: albuterol 2.5 MG/3 ML nebule NEB SCH ×4 (07:09→19:10)
[2020-03-28] MEDS: K, MAG and/or Phos replacement - Verify level? MC SCH (08:00)
[2020-03-28] MEDS: K and/or MAG REPLACEMENT MC SCH ×2 (08:00→20:00)
[2020-03-28] MEDS: calcium carbonate/vitamin D3 tablet PO SCH ×2 (08:31→20:24)
[2020-03-28] MEDS: duloxetine 30mg CAPSULE.DR PO SCH (08:31)
[2020-03-28] MEDS: aspirin 81mg tab.chew PO SCH (08:31)
[2020-03-28] MEDS: docusate sod 100mg capsule PO SCH ×2 (08:32→20:18)
[2020-03-28] MEDS: amitriptyline 10mg tablet PO SCH (08:32)
[2020-03-28] MEDS: pregabalin 25mg capsule PO SCH ×3 (08:32→20:18)
[2020-03-28] MEDS: lisinopril 2.5mg tablet PO SCH (08:32)
[2020-03-28] MEDS: neomy sulf/polymyx B sulf/HC 10ml otic suspension EACH EAR SCH ×4 (08:33→20:19)
[2020-03-28] MEDS: LIDOcaine 5% patch TP SCH (08:33)
[2020-03-28] MEDS: heparin, porcine 5000 units/ml vial SQ SCH ×2 (08:33→20:00)
[2020-03-28] MEDS: insulin Lispro (HumaLOG) vial - multi-dose SQ SCH ×2 (08:43→13:32)
[2020-03-28] MEDS: normal saline 1000ml 1,000 ML IV SCH ×2 (09:05→22:26)
[2020-03-28 11:00] VITALS: BP 109/67
[2020-03-28 11:06] LABS: ALANINE AMINOTRANSFERASE 226 U/L (12-78); ALBUMIN 2.8 G/DL (3.4-5.0); ALKALINE PHOSPHATASE 143 IU/L (46-116); ANION GAP 6 (8-16); ASPARTATE AMINO TRANSFERASE 385 U/L (10-37); BILIRUBIN,TOTAL 0.6 MG/DL (0.1-1.0); BLOOD UREA NITROGEN 9 MG/DL (7-18); BUN/CREATININE RATIO 12.9 (6.6-38.0); CALCIUM 8.2 MG/DL (8.5-10.1); CHLORIDE 107 MMOL/L (99-107); GLUCOSE 151 MG/DL (70-104); POTASSIUM 4.4 MMOL/L (3.5-5.1); SODIUM 140 MMOL/L (135-145); TOTAL CARBON DIOXIDE 27.1 MMOL/L (24-32); TOTAL PROTEIN 5.5 G/DL (6.4-8.2); eGFR 88 ML/MIN
--- NOTE | 2020-03-28 11:57 | NUR ---
received orders to stop lr catheter per dr. amin
[2020-03-28 15:00] VITALS: BP 120/58
[2020-03-28] MEDS: dextrose ORAL solution 15 GM/59 ML bottle PO PRN (17:10)
[2020-03-28 18:00] VITALS: BP 104/67
--- NOTE | 2020-03-28 18:34 | NUR ---
Problems reprioritized. Patient report given, questions answered & plan of care reviewed with Chacha AGUIRRE.
[2020-03-28] MEDS: atorvastatin 10mg tablet PO SCH (20:18)
[2020-03-28] MEDS: morphine 2 MG/ML inj. syringe IV PRN (20:20)
[2020-03-28] MEDS: insulin glargine (Lantus) pen - multi-dose SQ SCH (21:28)
[2020-03-29] MEDS: morphine 2 MG/ML inj. syringe IV PRN (00:35)
[2020-03-29] MEDS: metoclopramide 5 mg/ml inj IV PRN (00:36)
[2020-03-29 02:00] VITALS: BP 129/61
[2020-03-29] MEDS: HYDROcodone/acetaminophen 10/325mg tab PO PRN ×4 (02:33→20:55)
--- NOTE | 2020-03-29 06:26 | NUR ---
Patient in room PCU 3017. I have received report from CARLA Burnham and had the opportunity to ask questions and assume patient care. Patient awake in bed and in no acute distress.
--- NOTE | 2020-03-29 06:26 | NUR ---
Problems reprioritized. Patient report given, questions answered & plan of care reviewed with CARLA Lawson.
--- NOTE | 2020-03-29 06:27 | NUR ---
Patient in room U 3017. I have received report from Chacha AGUIRRE and had the opportunity to ask questions and assume patient care. Patient awake and watching tv in bed.
[2020-03-29 06:32] LABS: BASOPHILS % (AUTO) 0.5 % (0-1); EOSINOPHILS # (AUTO) 0.2 X10'3 (0-0.9); EOSINOPHILS % (AUTO) 3.1 % (0-6); HEMOGLOBIN 11.3 g/dl (12.0-16.0); LYMPHOCYTES # (AUTO) 1.5 X10'3 (1.1-4.8); LYMPHOCYTES % (AUTO) 30.4 % (21-51); MEAN CORPUSCULAR HEMOGLOBIN 29.3 PG (27.0-31.0); MEAN CORPUSCULAR HGB CONC 33.3 g/dL (33.0-36.5); MEAN PLATELET VOLUME 9.3 FL (7.4-10.4); MONOCYTES # (AUTO) 0.3 X10'3 (0-0.9); MONOCYTES % (AUTO) 6.1 % (2-12); NEUTROPHILS % (AUTO) 59.9 % (42-75); PLATELET COUNT 134 X10'3 (140-440); RED BLOOD COUNT 3.86 X10'6 (4.20-5.60); RED CELL DISTRIBUTION WIDTH 14.2 % (11.5-14.5); WHITE BLOOD COUNT 5.1 X10'3 (4.5-11.0)
[2020-03-29 06:40] LABS: ALANINE AMINOTRANSFERASE 281 U/L (12-78); ALBUMIN 2.9 G/DL (3.4-5.0); ALKALINE PHOSPHATASE 172 IU/L (46-116); ANION GAP 4 (8-16); ASPARTATE AMINO TRANSFERASE 267 U/L (10-37); BILIRUBIN,TOTAL 0.8 MG/DL (0.1-1.0); BLOOD UREA NITROGEN 13 MG/DL (7-18); BUN/CREATININE RATIO 16.7 (6.6-38.0); CALCIUM 8.6 MG/DL (8.5-10.1); CHLORIDE 104 MMOL/L (99-107); CREATININE 0.78 MG/DL (0.40-0.90); GLUCOSE 213 MG/DL (70-104); MAGNESIUM 1.7 MG/DL (1.5-2.4); PHOSPHORUS 3.8 MG/DL (2.3-4.5); POTASSIUM 4.1 MMOL/L (3.5-5.1); SODIUM 139 MMOL/L (135-145); TOTAL CARBON DIOXIDE 31.2 MMOL/L (24-32); TOTAL PROTEIN 5.8 G/DL (6.4-8.2); eGFR 78 ML/MIN
[2020-03-29 07:00] VITALS: BP 131/80
[2020-03-29] MEDS: albuterol 2.5 MG/3 ML nebule NEB SCH ×4 (07:01→19:44)
[2020-03-29] MEDS: budesonide 0.5mg/2ml UD nebule IH SCH ×2 (07:01→19:44)
[2020-03-29] MEDS: K, MAG and/or Phos replacement - Verify level? MC SCH (08:00)
[2020-03-29] MEDS: K and/or MAG REPLACEMENT MC SCH ×2 (08:00→20:00)
[2020-03-29] MEDS: pregabalin 25mg capsule PO SCH ×3 (08:22→20:38)
[2020-03-29] MEDS: pantoprazole 40mg Tablet.DR PO SCH (08:22)
[2020-03-29] MEDS: lisinopril 2.5mg tablet PO SCH (08:23)
[2020-03-29] MEDS: calcium carbonate/vitamin D3 tablet PO SCH ×2 (08:23→20:37)
[2020-03-29] MEDS: aspirin 81mg tab.chew PO SCH (08:23)
[2020-03-29] MEDS: amitriptyline 10mg tablet PO SCH (08:23)
[2020-03-29] MEDS: docusate sod 100mg capsule PO SCH ×2 (08:23→20:37)
[2020-03-29] MEDS: duloxetine 30mg CAPSULE.DR PO SCH (08:24)
[2020-03-29] MEDS: heparin, porcine 5000 units/ml vial SQ SCH ×2 (08:24→20:38)
[2020-03-29] MEDS: LIDOcaine 5% patch TP SCH (08:25)
[2020-03-29] MEDS: insulin Lispro (HumaLOG) vial - multi-dose SQ SCH ×3 (08:29→19:20)
[2020-03-29] MEDS: neomy sulf/polymyx B sulf/HC 10ml otic suspension EACH EAR SCH ×4 (08:30→20:38)
[2020-03-29 11:00] VITALS: BP 115/77
[2020-03-29] MEDS: ondansetron/PF 4mg/2ml inj IV PRN (11:19)
[2020-03-29] MEDS: normal saline 1000ml 1,000 ML IV SCH (11:52)
--- NOTE | 2020-03-29 12:36 | NUR ---
Reassessment: Anion gap closed per MD notes. Pt continues with 75-100% PO intake on carb controlled diet meeting nutrient needs. [facility] 03/28. No nutrition intervention warranted at this time. Will continue to follow. Rec: 1. continue carb controlled diet 2. routine bowel care 3. wt per rx Addendum: 03/29/20 at [address] Amended: Links added.
[2020-03-29 15:00] VITALS: BP 113/77
--- NOTE | 2020-03-29 15:59 | NUR ---
Patient complained of blood sugar feeling low and wanted it checked. Checked blood sugar and it was 194.
[2020-03-29 18:00] VITALS: BP 124/71
--- NOTE | 2020-03-29 18:14 | NUR ---
Problems reprioritized. Patient report given, questions answered & plan of care reviewed with CARLA Monique. Patient stable at transfer of care.
--- NOTE | 2020-03-29 18:14 | NUR ---
Orientee documentation: I have reviewed and agree with all interventions, assessments performed and documented by CARLA Dove.
--- NOTE | 2020-03-29 18:15 | NUR ---
Orientee Medication Administration: For this medication-pass time frame, all medication were reviewed, dispensed, administered and documented per hospital policy by CARLA Dove.
--- NOTE | 2020-03-29 18:25 | NUR ---
Patient in room PCU 3017. I have received report from Lulu AGUIRRE and had the opportunity to ask questions and assume patient care.
[2020-03-29] MEDS: atorvastatin 10mg tablet PO SCH (20:37)
[2020-03-29 22:00] VITALS: BP 113/59
[2020-03-29] MEDS: insulin glargine (Lantus) pen - multi-dose SQ SCH (23:10)
[2020-03-30] MEDS: normal saline 1000ml 1,000 ML IV SCH (01:05)
[2020-03-30 02:00] VITALS: BP 140/62
[2020-03-30 06:12] LABS: BASOPHILS % (AUTO) 0.6 % (0-1); EOSINOPHILS # (AUTO) 0.2 X10'3 (0-0.9); EOSINOPHILS % (AUTO) 3.3 % (0-6); HEMATOCRIT 32.1 % (35.0-45.0); HEMOGLOBIN 10.6 g/dl (12.0-16.0); LYMPHOCYTES # (AUTO) 1.2 X10'3 (1.1-4.8); LYMPHOCYTES % (AUTO) 25.2 % (21-51); MEAN CORPUSCULAR HEMOGLOBIN 29.3 PG (27.0-31.0); MEAN CORPUSCULAR HGB CONC 33.1 g/dL (33.0-36.5); MEAN CORPUSCULAR VOLUME 88.5 FL (78-98); MEAN PLATELET VOLUME 9.8 FL (7.4-10.4); MONOCYTES # (AUTO) 0.3 X10'3 (0-0.9); MONOCYTES % (AUTO) 5.4 % (2-12); NEUTROPHILS # (AUTO) 3.2 X10'3 (1.8-7.7); NEUTROPHILS % (AUTO) 65.5 % (42-75); PLATELET COUNT 127 X10'3 (140-440); RED BLOOD COUNT 3.62 X10'6 (4.20-5.60); RED CELL DISTRIBUTION WIDTH 14.2 % (11.5-14.5); WHITE BLOOD COUNT 4.9 X10'3 (4.5-11.0)
--- NOTE | 2020-03-30 06:25 | NUR ---
Problems reprioritized. Patient report given, questions answered & plan of care reviewed with Lu AGUIRRE.
[2020-03-30 06:38] LABS: ALANINE AMINOTRANSFERASE 470 U/L (12-78); ALBUMIN 2.6 G/DL (3.4-5.0); ALBUMIN/GLOBULIN RATIO 0.9 (1.1-1.5); ALKALINE PHOSPHATASE 241 IU/L (46-116); ANION GAP 5 (8-16); ASPARTATE AMINO TRANSFERASE 499 U/L (10-37); BILIRUBIN,TOTAL 0.6 MG/DL (0.1-1.0); BLOOD UREA NITROGEN 12 MG/DL (7-18); BUN/CREATININE RATIO 18.5 (6.6-38.0); CALCIUM 8.3 MG/DL (8.5-10.1); CHLORIDE 105 MMOL/L (99-107); CREATININE 0.65 MG/DL (0.40-0.90); GLUCOSE 223 MG/DL (70-104); MAGNESIUM 1.5 MG/DL (1.5-2.4); PHOSPHORUS 4.1 MG/DL (2.3-4.5); POTASSIUM 4.2 MMOL/L (3.5-5.1); SODIUM 142 MMOL/L (135-145); TOTAL CARBON DIOXIDE 31.8 MMOL/L (24-32); TOTAL PROTEIN 5.5 G/DL (6.4-8.2); eGFR > 90 ML/MIN
--- NOTE | 2020-03-30 06:41 | NUR ---
Patient in room PCU 3017. I have received report from Eneida AGUIRRE and had the opportunity to ask questions and assume patient care. Patient asleep in bed and resting comfortably. In no acute distress. All immediate needs met.
[2020-03-30] MEDS: budesonide 0.5mg/2ml UD nebule IH SCH ×2 (06:54→19:38)
[2020-03-30] MEDS: albuterol 2.5 MG/3 ML nebule NEB SCH ×4 (06:55→19:38)
[2020-03-30 07:00] VITALS: BP 130/66
[2020-03-30] MEDS: K and/or MAG REPLACEMENT MC SCH ×2 (08:00→20:00)
[2020-03-30] MEDS: K, MAG and/or Phos replacement - Verify level? MC SCH (08:00)
[2020-03-30] MEDS: calcium carbonate/vitamin D3 tablet PO SCH ×2 (08:00→20:05)
[2020-03-30] MEDS: amitriptyline 10mg tablet PO SCH (08:54)
[2020-03-30] MEDS: duloxetine 30mg CAPSULE.DR PO SCH (08:54)
[2020-03-30] MEDS: docusate sod 100mg capsule PO SCH ×2 (08:54→20:05)
[2020-03-30] MEDS: aspirin 81mg tab.chew PO SCH (08:54)
[2020-03-30] MEDS: lisinopril 2.5mg tablet PO SCH (08:55)
[2020-03-30] MEDS: pregabalin 25mg capsule PO SCH ×3 (08:55→20:05)
[2020-03-30] MEDS: HYDROcodone/acetaminophen 10/325mg tab PO PRN ×3 (08:56→20:17)
[2020-03-30] MEDS: heparin, porcine 5000 units/ml vial SQ SCH ×2 (08:57→20:06)
[2020-03-30] MEDS: LIDOcaine 5% patch TP SCH (08:58)
[2020-03-30] MEDS: neomy sulf/polymyx B sulf/HC 10ml otic suspension EACH EAR SCH ×4 (08:58→21:06)
[2020-03-30] MEDS: pantoprazole 40mg Tablet.DR PO SCH (09:01)
[2020-03-30] MEDS: insulin Lispro (HumaLOG) vial - multi-dose SQ SCH ×2 (09:35→13:42)
[2020-03-30 11:00] VITALS: BP 119/75
--- NOTE | 2020-03-30 15:28 | NUR ---
Patient complains of sweating, nausea and shaking. Blood glucose 27. Will administer 50 mL 50% dextrose per hypoglycemia protocol.
--- NOTE | 2020-03-30 15:39 | NUR ---
Blood glucose 148. Monitoring patient for s/s hypoglycemia.
[2020-03-30] MEDS ORDERED: DOXYCYCLINE 100MG CAPSULE PO STA (15:49)
--- NOTE | 2020-03-30 15:52 | NUR ---
New orders from Klaudia Wilson: No PIV, doxycycline 100 BID. One dose now.
--- NOTE | 2020-03-30 15:55 | NUR ---
Blood glucose 87. Patient states she is nauseated. Will administer PRN zofran.
--- NOTE | 2020-03-30 17:18 | NUR ---
Patient blood glucose 76. Symptomatic. Administered 15g oral dextrose.
[2020-03-30] MEDS: DOXYCYCLINE 100MG CAPSULE PO SCH (17:25)
[2020-03-30] MEDS: dextrose ORAL solution 15 GM/59 ML bottle PO PRN (17:26)
[2020-03-30 18:00] VITALS: BP 112/60
--- NOTE | 2020-03-30 18:17 | NUR ---
Problems reprioritized. Patient report given, questions answered & plan of care reviewed with CARLA Flores. Patient stable at transfer of care.
--- NOTE | 2020-03-30 18:18 | NUR ---
Patient in room PCU 3015d. I have received report from CARLA MALAGON AND CARLA NORRIS and had the opportunity to ask questions and assume patient care. PATIENT AWAKE FOR BEDSIDE REPORT, ON ROOM AIR, AND SALINE LOCKED AT THIS TIME. WILL CONTINUE TO MONITOR CLOSELY.
--- NOTE | 2020-03-30 18:19 | NUR ---
Orientee documentation: I have reviewed and agree with all interventions, assessments performed and documented by CARLA Matthews. Orientee Medication Administration: For this medication-pass time frame, all medication were reviewed, dispensed, administered and documented per hospital policy by CARLA Matthews.
[2020-03-30] MEDS: atorvastatin 10mg tablet PO SCH (20:05)
[2020-03-30] MEDS: insulin glargine (Lantus) pen - multi-dose SQ SCH (21:02)
[2020-03-30 22:00] VITALS: BP 128/74
[2020-03-31] MEDS: HYDROcodone/acetaminophen 10/325mg tab PO PRN ×2 (00:55→08:18)
[2020-03-31 03:00] VITALS: BP 115/76
[2020-03-31 05:43] LABS: BASOPHILS % (AUTO) 0.9 % (0-1); EOSINOPHILS # (AUTO) 0.3 X10'3 (0-0.9); EOSINOPHILS % (AUTO) 5.6 % (0-6); HEMATOCRIT 33.1 % (35.0-45.0); HEMOGLOBIN 10.9 g/dl (12.0-16.0); LYMPHOCYTES % (AUTO) 42.4 % (21-51); MEAN CORPUSCULAR HEMOGLOBIN 29.1 PG (27.0-31.0); MEAN CORPUSCULAR VOLUME 88.4 FL (78-98); MEAN PLATELET VOLUME 9.8 FL (7.4-10.4); MONOCYTES # (AUTO) 0.3 X10'3 (0-0.9); NEUTROPHILS % (AUTO) 44.1 % (42-75); PLATELET COUNT 152 X10'3 (140-440); RED BLOOD COUNT 3.74 X10'6 (4.20-5.60); RED CELL DISTRIBUTION WIDTH 14.4 % (11.5-14.5); WHITE BLOOD COUNT 4.6 X10'3 (4.5-11.0)
[2020-03-31 05:51] LABS: ALANINE AMINOTRANSFERASE 515 U/L (12-78); ALBUMIN 2.7 G/DL (3.4-5.0); ALBUMIN/GLOBULIN RATIO 0.9 (1.1-1.5); ALKALINE PHOSPHATASE 301 IU/L (46-116); ANION GAP 4 (8-16); ASPARTATE AMINO TRANSFERASE 345 U/L (10-37); BILIRUBIN,TOTAL 0.5 MG/DL (0.1-1.0); BLOOD UREA NITROGEN 10 MG/DL (7-18); BUN/CREATININE RATIO 14.1 (6.6-38.0); CALCIUM 8.7 MG/DL (8.5-10.1); CHLORIDE 104 MMOL/L (99-107); CREATININE 0.71 MG/DL (0.40-0.90); GLUCOSE 192 MG/DL (70-104); MAGNESIUM 1.6 MG/DL (1.5-2.4); PHOSPHORUS 3.6 MG/DL (2.3-4.5); POTASSIUM 4.1 MMOL/L (3.5-5.1); SODIUM 141 MMOL/L (135-145); TOTAL CARBON DIOXIDE 32.6 MMOL/L (24-32); TOTAL PROTEIN 5.7 G/DL (6.4-8.2); eGFR 87 ML/MIN
--- NOTE | 2020-03-31 06:14 | NUR ---
Problems reprioritized. Patient report given, questions answered & plan of care reviewed with CARLA MALAGON AND CARLA NORRIS.
--- NOTE | 2020-03-31 06:35 | NUR ---
Patient in room PCU 3014I. I have received report from Mark AGUIRRE and had the opportunity to ask questions and assume patient care. patient resting comfortably. all current needs met.
--- NOTE | 2020-03-31 06:44 | NUR ---
Patient in room PCU 3017. I have received report from CARLA Flores and had the opportunity to ask questions and assume patient care. Patient awake in bed and offers no complaints. All immediate needs met at this time.
[2020-03-31] MEDS: albuterol 2.5 MG/3 ML nebule NEB SCH (06:55)
[2020-03-31] MEDS: budesonide 0.5mg/2ml UD nebule IH SCH (06:56)
[2020-03-31 07:00] VITALS: BP 124/71
[2020-03-31] MEDS: heparin, porcine 5000 units/ml vial SQ SCH (08:00)
[2020-03-31] MEDS: pantoprazole 40mg Tablet.DR PO SCH (08:09)
[2020-03-31] MEDS: docusate sod 100mg capsule PO SCH (08:09)
[2020-03-31] MEDS: calcium carbonate/vitamin D3 tablet PO SCH (08:09)
[2020-03-31] MEDS: duloxetine 30mg CAPSULE.DR PO SCH (08:09)
[2020-03-31] MEDS: amitriptyline 10mg tablet PO SCH (08:09)
[2020-03-31] MEDS: DOXYCYCLINE 100MG CAPSULE PO SCH (08:10)
[2020-03-31 08:11] VITALS: BP_SYST 124
[2020-03-31] MEDS: lisinopril 2.5mg tablet PO SCH (08:11)
[2020-03-31] MEDS: pregabalin 25mg capsule PO SCH (08:11)
[2020-03-31] MEDS: aspirin 81mg tab.chew PO SCH (08:11)
[2020-03-31] MEDS: neomy sulf/polymyx B sulf/HC 10ml otic suspension EACH EAR SCH (08:12)
[2020-03-31] MEDS: LIDOcaine 5% patch TP SCH (08:12)
[2020-03-31] MEDS: insulin Lispro (HumaLOG) vial - multi-dose SQ SCH (08:23)
[2020-03-31] MEDS ORDERED: DOXY150T5 PO (09:30)
--- NOTE | 2020-03-31 10:09 | NUR ---
Patient stable to discharge per MD Orders. All discharge instructions given to patient and all questions answered. Patient has consult appointment with Dr. Goncalves at 1030 today. Patient new prescriptions called into [facility]. PIV discontinued - cannula intact. Patient did not have telemetry monitoring. All patient belongings packed up and sent with patient. Stored medications in pharmacy retrieved and returned to patient. Patient transported by wheelchair by PCT to Dr. Goncalves office. Case management provide patient contact information for transport company to home after appointment completed. At this time [facility] will not accept patient. Blood sugar stable at 255.
--- NOTE | 2020-03-31 10:44 | NUR ---
Orientee documentation: I have reviewed and agree with all interventions, assessments performed and documented by Cassie Sidhu Medication Administration: For this medication-pass time frame, all medication were reviewed, dispensed, administered and documented per hospital policy by CARLA Matthews.
== END 2020-03-31 10:09 | disposition home health service (06) | DRG 420 ==
LOC: ER 12:11 → ED HOLD 14:25 → ICU 2S 20:46 → PCU 3S 03-27 11:25
DX: E11.10 Type 2 diabetes mellitus with ketoacidosis without coma (principal); K85.90 Acute pancreatitis without necrosis or infection, unspecified; I11.0 Hypertensive heart disease with heart failure; E87.5 Hyperkalemia; I50.9 Heart failure, unspecified; E87.1 Hypo-osmolality and hyponatremia; E78.00 Pure hypercholesterolemia, unspecified; E78.5 Hyperlipidemia, unspecified; F41.9 Anxiety disorder, unspecified; F32.9 Major depressive disorder, single episode, unspecified; G89.29 Other chronic pain; I48.91 Unspecified atrial fibrillation; I80.9 Phlebitis and thrombophlebitis of unspecified site; J45.909 Unspecified asthma, uncomplicated; K43.9 Ventral hernia without obstruction or gangrene; Z79.01 Long term (current) use of anticoagulants; Z79.4 Long term (current) use of insulin; Z79.51 Long term (current) use of inhaled steroids; Z79.899 Other long term (current) drug therapy; Z80.8 Family history of malignant neoplasm of other organs or systems; Z85.41 Personal history of malignant neoplasm of cervix uteri; Z85.841 Personal history of malignant neoplasm of brain; Z88.0 Allergy status to penicillin; Z90.710 Acquired absence of both cervix and uterus; Z88.8 Allergy status to other drugs, medicaments and biological substances; Z20.828 Contact with and (suspected) exposure to other viral communicable diseases
CPT/HCPCS: 36415; 71045; 80048; 80053; 81001; 81025; 82009; 82800; 82948; 83690; 83735; 84100; 85025; 87081; 87635; 93005; 94640; 94760; 97110; 97116; 97161; 97530; 99285; C9113; G0378; J1644; J1815; J2270; J2405; J2765; J3480; J7030; J7060; J7626; P9047

== ENCOUNTER 2020-04-16 21:24 | Emergency (ER) | payer MEDICAID ==
[~2020-04-16] VITALS: Ht 170.2 cm; Wt 66.8 kg
[~2020-04-16 21:24] MED LIST changes: +APIX5TAB3 PO; -HYDR-3965 PO; -HYDR-3972 PO; +INSU100V43 SQ; +POTA10TA36 PO; -VAL5T PO; -pantoprazole 40 MG vial IV SCH
[2020-04-16] MEDS ORDERED: ketorolac trometh. 30mg/ml inj. IM ONE (21:35)
[2020-04-16] MEDS ORDERED: HYDROcodone/acetaminophen 10/325mg tab PO ONE (21:35)
[2020-04-16] MEDS ORDERED: ondansetron 4mg rapidly disintigrating tab PO ONE (21:45)
[2020-04-16] MEDS ORDERED: HYDR-4353 PO (21:53)
[2020-04-16 21:58] VITALS: BP 127/102
== END 2020-04-16 22:00 | disposition home or self-care (01) ==
LOC: ER 21:25
DX: S42.91XA Fracture of right shoulder girdle, part unspecified, initial encounter for closed fracture (principal); M79.601 Pain in right arm; R11.0 Nausea; I48.91 Unspecified atrial fibrillation; I50.9 Heart failure, unspecified; E78.00 Pure hypercholesterolemia, unspecified; J45.909 Unspecified asthma, uncomplicated; K21.9 Gastro-esophageal reflux disease without esophagitis; E11.9 Type 2 diabetes mellitus without complications; G89.29 Other chronic pain; F41.9 Anxiety disorder, unspecified; F32.9 Major depressive disorder, single episode, unspecified; Z85.41 Personal history of malignant neoplasm of cervix uteri; Z90.49 Acquired absence of other specified parts of digestive tract; Z90.710 Acquired absence of both cervix and uterus; Z98.890 Other specified postprocedural states; Z56.0 Unemployment, unspecified; Z88.0 Allergy status to penicillin; Z88.1 Allergy status to other antibiotic agents; Z88.8 Allergy status to other drugs, medicaments and biological substances; Z79.82 Long term (current) use of aspirin; Z79.4 Long term (current) use of insulin; Z79.2 Long term (current) use of antibiotics; Z79.899 Other long term (current) drug therapy; W01.198A Fall on same level from slipping, tripping and stumbling with subsequent striking against other object, initial encounter; Y93.89 Activity, other specified; Y92.89 Other specified places as the place of occurrence of the external cause; Y99.8 Other external cause status
CPT/HCPCS: 73030; 82948; 96372; 99283; J1885

== ENCOUNTER 2020-04-26 11:16 | Inpatient (IN) | payer MEDICAID ==
[2020-04-26] VITALS (9 sets, daily range): BP systolic 85–111; BP diastolic 47–66
[~2020-04-26] VITALS: Ht 172.7 cm; Wt 72.7 kg
[~2020-04-26 11:16] MED LIST changes: +HYDR-4353 PO
--- NOTE | 2020-04-26 11:39 | NUR ---
NOTED WITH BM AND BLADDER INCONTINENCE,CLEANED AND REPOSITION FOR COMFORT.
[2020-04-26] MEDS ORDERED: ringers solution, lacted 1,000 ML IV STA ×3 (11:40→13:21)
[2020-04-26 11:45] LABS: BASOPHILS # (AUTO) 0.4 X10'3 (0-0.2); BASOPHILS % (AUTO) 1.1 % (0-1); EOSINOPHILS # (AUTO) 0.2 X10'3 (0-0.9); EOSINOPHILS % (AUTO) 0.6 % (0-6); LYMPHOCYTES # (AUTO) 2.5 X10'3 (1.1-4.8); MEAN PLATELET VOLUME 10.4 FL (7.4-10.4); MONOCYTES # (AUTO) 1.6 X10'3 (0-0.9); NEUTROPHILS # (AUTO) 27.1 X10'3 (1.8-7.7); NEUTROPHILS % (AUTO) 85.3 % (42-75); PLATELET COUNT 391 X10'3 (140-440)
[2020-04-26 11:55] LABS: HEMATOCRIT 42.5 % (35.0-45.0); HEMOGLOBIN 14.7 g/dl (12.0-16.0); MEAN CORPUSCULAR HGB CONC 34.6 g/dL (33.0-36.5); MEAN CORPUSCULAR VOLUME 89.5 FL (78-98); RED BLOOD COUNT 4.74 X10'6 (4.20-5.60)
[2020-04-26 11:56] LABS: RED CELL DISTRIBUTION WIDTH 13.4 % (11.5-14.5); WHITE BLOOD COUNT 31.8 X10'3 (4.5-11.0)
[2020-04-26 12:01] LABS: ALANINE AMINOTRANSFERASE 71 U/L (12-78); ALBUMIN 3.4 G/DL (3.4-5.0); ALBUMIN/GLOBULIN RATIO 0.9 (1.1-1.5); ALKALINE PHOSPHATASE 251 IU/L (46-116); ASPARTATE AMINO TRANSFERASE 24 U/L (10-37); BILIRUBIN,TOTAL 0.7 MG/DL (0.1-1.0); BLOOD UREA NITROGEN 55 MG/DL (7-18); BUN/CREATININE RATIO 20.5 (6.6-38.0); CALCIUM 9.1 MG/DL (8.5-10.1); CHLORIDE 82 MMOL/L (99-107); CREATININE 2.68 MG/DL (0.40-0.90); LIPASE 99 U/L (73-393); MAGNESIUM 3.1 MG/DL (1.5-2.4); SODIUM 126 MMOL/L (135-145); TOTAL PROTEIN 7.1 G/DL (6.4-8.2); eGFR 19 ML/MIN
[2020-04-26 12:06] LABS: PHOSPHORUS 12.3 MG/DL (2.3-4.5)
[2020-04-26 12:07] LABS: ANION GAP 39 (8-16)
[2020-04-26 12:09] LABS: GLUCOSE 1335 MG/DL (70-104); POTASSIUM 6.4 MMOL/L (3.5-5.1); TOTAL CARBON DIOXIDE < 5 MMOL/L (24-32)
[2020-04-26] MEDS ORDERED: levoFLOXACIN-Levaquin 750MG/D5 150 ML IV ONE (12:10)
[2020-04-26 12:14] LABS: CLARITY,URINE CLEAR (Clear); COLOR,URINE YELLOW (Yellow); GLUCOSE, URINE >=1000 mg/dl (Neg); KETONES,URINE 40 mg/dl (Neg); LEUKOCYTE ESTERASE ,URINE NEGATIVE (Neg); NITRITES, URINE NEGATIVE (Neg); OCCULT BLOOD,URINE NEGATIVE (Neg); PROTEIN,URINE NEGATIVE (Neg); UROBILINOGEN,URINE 0.2 E.U/dL (0.2-1.0)
--- NOTE | 2020-04-26 12:16 | NUR ---
CALLED PHARMACY,SPOKE TO STAR,STILL PREPARING INSULIN DRIP AT THIS TIME,DR. LAZO AWARE.
[2020-04-26 12:20] LABS: UA COLLECTION TYPE STRAIGHT CATH
--- NOTE | 2020-04-26 12:21 | NUR ---
bp 87/37, Child aware.patient placed on trendelenberg.
[2020-04-26 12:28] LABS: SQUAMOUS EPITHELIAL CELL,UR FEW /LPF (FEW)
[2020-04-26 12:29] LABS: URINE AMPHETAMINE SCREEN NEGATIVE (Neg); URINE BARBITUATE SCREEN NEGATIVE (Neg); URINE BENZODIAZEPINES SCREEN NEGATIVE (Neg); URINE CANNABINOID SCREEN NEGATIVE (Neg); URINE COCAINE SCREEN NEGATIVE (Neg); URINE METHADONE SCREEN NEGATIVE (Neg); URINE OPIATE SCREEN NEGATIVE (Neg); URINE PHENCYCLIDINE SCREEN NEGATIVE (Neg)
[2020-04-26 12:31] LABS: AMORPHOUS URATES 1+; BACTERIA,URINE FEW /HPF (Neg); RBC,URINE 0-2 /HPF (0-2); WBC,URINE 0-4 /HPF (0-4)
[2020-04-26 12:37] LABS: TOTAL CELLS COUNTED 100
[2020-04-26] MEDS: Insulin Reg/NS 100units/100mL 100 ML IV PRN ×2 (12:37→22:57)
[2020-04-26 12:40] LABS: PLATELET ESTIMATE NORMAL; TOXIC VACUOLATION FEW
[2020-04-26 12:43] LABS: BURR CELLS FEW; POLYCHROMASIA FEW
--- NOTE | 2020-04-26 12:43 | NUR ---
NO INSULIN BOLUS TO BE GIVEN PRIOR INSULIN DRIP,INSULIN DRIP START 7ML/HR PER DR. CHILD.
--- NOTE | 2020-04-26 13:30 | NUR ---
BELTRAN OXIDE FURNACE TENDER AT BEDSIDE,MADE AWARE THAT PATIENT WAS NOT GIVEN BOLUS PRIOR TO INSILIN DRIP AND THAT INSULIN IS 7ML/HOUR.
[2020-04-26] MEDS: normal saline 1000ml 1,000 ML IV SCH ×5 (13:43→22:53)
[2020-04-26] MEDS ORDERED: sodium bicarbonate (8.4%) inj. 100 MEQ in dextrose 5% water 500ml 500 ML IV PRN (13:43)
[2020-04-26] MEDS ORDERED: sodium bicarbonate (8.4%) inj. 50 MEQ in dextrose 5% water 500ml 250 ML IV PRN (13:43)
[2020-04-26] MEDS ORDERED: Neutra Phos packet PO PRN (13:45)
[2020-04-26] MEDS ORDERED: potassium CL 10mEq/100ml bag 100 ML IV PRN ×4 (13:45)
[2020-04-26] MEDS ORDERED: magnesium 2GM in 50ml NS 50 ML IV PRN (13:45)
[2020-04-26] MEDS ORDERED: sodium phosphate inj. 30 MMOL in dextrose 5%-water 250 ML IV PRN (13:45)
[2020-04-26] MEDS ORDERED: potassium Cl 20 mEq SR tablet PO PRN ×4 (13:45)
[2020-04-26] MEDS ORDERED: insulin regular, human U-100 3ml vial - multi-dose IV PRN (13:45)
[2020-04-26] MEDS ORDERED: acetaminophen 325mg tablet PO PRN ×2 (13:45)
[2020-04-26] MEDS: K, MAG and/or Phos replacement - Verify level? MC SCH (13:45)
[2020-04-26] MEDS ORDERED: magnesium Cl slow-release 64mg tablet PO PRN (13:45)
[2020-04-26] MEDS ORDERED: potassium Cl 20mEq/100mL bag 100 ML IV PRN ×2 (13:45)
[2020-04-26] MEDS ORDERED: magnesium 4gm in 100ml NS 100 ML IV PRN (13:45)
[2020-04-26] MEDS ORDERED: sodium phosphate inj. 15 MMOL in dextrose 5%-water 250 ML IV PRN (13:45)
[2020-04-26] MEDS ORDERED: LIDOcaine 2% 10ml TOPICAL JELLY (Urojet) TP ONE (13:45)
[2020-04-26 13:52] LABS: BLOOD UREA NITROGEN 53 MG/DL (7-18); BUN/CREATININE RATIO 21.5 (6.6-38.0); CALCIUM 8.6 MG/DL (8.5-10.1); CHLORIDE 85 MMOL/L (99-107); CREATININE 2.46 MG/DL (0.40-0.90); SODIUM 128 MMOL/L (135-145); eGFR 21 ML/MIN
[2020-04-26 14:02] LABS: ANION GAP 38 (8-16)
[2020-04-26 14:04] LABS: GLUCOSE 1180 MG/DL (70-104); POTASSIUM 6.1 MMOL/L (3.5-5.1); TOTAL CARBON DIOXIDE < 5 MMOL/L (24-32)
[2020-04-26 14:21] LABS: ABG BASE EXCESS -25.7 mmol/L (-2.0-2.0); ABG HCO3 2.9 mmol/L (22.0-26.0); ABG OXYGEN SATURATION 98.3 % (94-97); ABG PCO2 (T) 11.1 mmHg (32.0-45.0); ABG PO2 (T) 135.4 mmHg (75.0-100.0); FCOHb 0.1 % (0.0-3.9); FMetHb 0.2 % (0.0-1.5); TOTAL HEMOGLOBIN 13.3 G/dl (12.0-16.0)
[2020-04-26] MEDS ORDERED: sodium bicarbonate (8.4%) 1 mEq/ml syringe IV ONE (14:35)
[2020-04-26] MEDS ORDERED: sodium bicarbonate (8.4%) 1 mEq/ml syringe ONE ×2 (15:19→15:27)
[2020-04-26] MEDS ORDERED: morphine 2 MG/ML inj. syringe IV PRN (15:50)
[2020-04-26] MEDS ORDERED: HYDROcodone/acetaminophen 5mg/325mg tablet PO PRN (15:50)
[2020-04-26 15:53] LABS: BASOPHILS # (AUTO) 0.2 X10'3 (0-0.2); BASOPHILS % (AUTO) 0.6 % (0-1); EOSINOPHILS # (AUTO) 0.3 X10'3 (0-0.9); EOSINOPHILS % (AUTO) 0.9 % (0-6); LYMPHOCYTES # (AUTO) 2.8 X10'3 (1.1-4.8); LYMPHOCYTES % (AUTO) 9.5 % (21-51); MEAN PLATELET VOLUME 10.2 FL (7.4-10.4); MONOCYTES # (AUTO) 1.4 X10'3 (0-0.9); MONOCYTES % (AUTO) 4.6 % (2-12); NEUTROPHILS # (AUTO) 24.9 X10'3 (1.8-7.7); NEUTROPHILS % (AUTO) 84.4 % (42-75); PLATELET COUNT 286 X10'3 (140-440)
[2020-04-26 16:00] LABS: HEMATOCRIT 38.1 % (35.0-45.0); HEMOGLOBIN 12.2 g/dl (12.0-16.0); MEAN CORPUSCULAR HEMOGLOBIN 29.1 PG (27.0-31.0); MEAN CORPUSCULAR HGB CONC 31.9 g/dL (33.0-36.5); RED BLOOD COUNT 4.19 X10'6 (4.20-5.60); RED CELL DISTRIBUTION WIDTH 14.5 % (11.5-14.5)
[2020-04-26 16:02] LABS: WHITE BLOOD COUNT 29.5 X10'3 (4.5-11.0)
[2020-04-26] MEDS ORDERED: non-formulary drug (Alendronate Sodium 1 TABLET) PO SCH (16:15)
[2020-04-26 16:21] LABS: ALBUMIN 2.9 G/DL (3.4-5.0); ANION GAP 33 (8-16); BLOOD UREA NITROGEN 49 MG/DL (7-18); BUN/CREATININE RATIO 22.2 (6.6-38.0); CHLORIDE 94 MMOL/L (99-107); CREATININE 2.21 MG/DL (0.40-0.90); PHOSPHORUS 8.3 MG/DL (2.3-4.5); SODIUM 133 MMOL/L (135-145); eGFR 23 ML/MIN
[2020-04-26 16:31] LABS: GLUCOSE 969 MG/DL (70-104)
[2020-04-26 16:32] LABS: TOTAL CARBON DIOXIDE 6.5 MMOL/L (24-32)
[2020-04-26] MEDS: famotidine/PF 10 mg/ml inj IV SCH (17:01)
[2020-04-26] MEDS: morphine 2 MG/ML inj. syringe IV PRN (17:10)
[2020-04-26 17:48] LABS: PHOSPHORUS 5.1 MG/DL (2.3-4.5)
--- NOTE | 2020-04-26 18:25 | NUR ---
Patient in room CICU 2013. I have received report from CARLA Holly and had the opportunity to ask questions and assume patient care. Patient is awake and alert, moaning and calling out. Patient is oriented x4. Insulin drip at 7 u/hr. Normal saline at 250ml/hr. Lab at bedside to draw STAT BMP and Lactic Acid. Normal sinus on the monitor. patient is currently saturating well at 97% on room air.
[2020-04-26 19:11] LABS: ALBUMIN 2.6 G/DL (3.4-5.0); ANION GAP 29 (8-16); BLOOD UREA NITROGEN 45 MG/DL (7-18); BUN/CREATININE RATIO 25.1 (6.6-38.0); CALCIUM 7.8 MG/DL (8.5-10.1); CHLORIDE 102 MMOL/L (99-107); CREATININE 1.79 MG/DL (0.40-0.90); POTASSIUM 4.5 MMOL/L (3.5-5.1); SODIUM 139 MMOL/L (135-145); eGFR 30 ML/MIN
[2020-04-26 19:24] LABS: GLUCOSE 625 MG/DL (70-104); TOTAL CARBON DIOXIDE 8.4 MMOL/L (24-32)
[2020-04-26] MEDS: apixaban 5mg tablet PO SCH (20:00)
[2020-04-26] MEDS: K and/or MAG REPLACEMENT MC SCH (20:00)
[2020-04-26] MEDS: calcium carbonate/vitamin D3 tablet PO SCH (20:00)
--- NOTE | 2020-04-26 20:00 | NUR ---
Patients insulin pump removed from patient. Catheter was out of skin prior to removal. Placed in bag labeled with patients name, placed in bedside dresser.
[2020-04-26] MEDS: atorvastatin 10mg tablet PO SCH (21:00)
[2020-04-26] MEDS: budesonide 0.5mg/2ml UD nebule IH SCH (21:11)
[2020-04-26] MEDS: heparin, porcine 5000 units/ml vial SQ SCH (21:16)
--- NOTE | 2020-04-26 21:16 | NUR ---
Paulo Ramirez NP made aware that patient is c/o nausea and gags with ice chips. Patient has PO medications ordered. Also has both heparin and Eliquis PO ordered. Per Paulo Ramirez NP okay to hold PO medications tonight. Give heparin SQ.
[2020-04-26 21:17] LABS: ALBUMIN 2.8 G/DL (3.4-5.0); ANION GAP 22 (8-16); BLOOD UREA NITROGEN 43 MG/DL (7-18); BUN/CREATININE RATIO 24.6 (6.6-38.0); CHLORIDE 104 MMOL/L (99-107); CREATININE 1.75 MG/DL (0.40-0.90); PHOSPHORUS 3.1 MG/DL (2.3-4.5); POTASSIUM 4.1 MMOL/L (3.5-5.1); SODIUM 141 MMOL/L (135-145); eGFR 31 ML/MIN
[2020-04-26 21:22] LABS: GLUCOSE 485 MG/DL (70-104)
[2020-04-26 21:23] LABS: TOTAL CARBON DIOXIDE 14.8 MMOL/L (24-32)
[2020-04-26 21:28] LABS: URINE HCG NEGATIVE (NEG)
[2020-04-27] VITALS (20 sets, daily range): BP systolic 90–124; BP diastolic 46–79
[2020-04-27] MEDS: ondansetron 4mg rapidly disintigrating tab PO PRN (00:14)
[2020-04-27] MEDS: potassium CL 20mEq in D5-1/2NS 1,000 ML IV PRN ×2 (00:25→08:33)
[2020-04-27 00:57] LABS: ALBUMIN 2.6 G/DL (3.4-5.0); ANION GAP 13 (8-16); BLOOD UREA NITROGEN 36 MG/DL (7-18); BUN/CREATININE RATIO 22.6 (6.6-38.0); CALCIUM 7.8 MG/DL (8.5-10.1); CHLORIDE 111 MMOL/L (99-107); CREATININE 1.59 MG/DL (0.40-0.90); GLUCOSE 233 MG/DL (70-104); MAGNESIUM 1.9 MG/DL (1.5-2.4); POTASSIUM 3.7 MMOL/L (3.5-5.1); SODIUM 146 MMOL/L (135-145); TOTAL CARBON DIOXIDE 22.3 MMOL/L (24-32); eGFR 34 ML/MIN
[2020-04-27] MEDS: normal saline 1000ml 1,000 ML IV SCH ×2 (01:43→05:43)
--- NOTE | 2020-04-27 02:19 | NUR ---
Patient c/o nausea after OTD Zofran. Patient has only 4mg ODT Zofran Daily ordered. October SKIP Ramirez Called. Order for Zofran 4 mg IV every 6 hours PRN nausea/ vomiting given.
[2020-04-27 03:22] LABS: BASOPHILS % (AUTO) 0.2 % (0-1); EOSINOPHILS % (AUTO) 0.2 % (0-6); HEMATOCRIT 32.3 % (35.0-45.0); HEMOGLOBIN 10.7 g/dl (12.0-16.0); LYMPHOCYTES # (AUTO) 1.9 X10'3 (1.1-4.8); LYMPHOCYTES % (AUTO) 9.6 % (21-51); MEAN CORPUSCULAR HEMOGLOBIN 28.2 PG (27.0-31.0); MEAN CORPUSCULAR HGB CONC 33.2 g/dL (33.0-36.5); MEAN CORPUSCULAR VOLUME 85.1 FL (78-98); MEAN PLATELET VOLUME 9.1 FL (7.4-10.4); MONOCYTES # (AUTO) 1.1 X10'3 (0-0.9); MONOCYTES % (AUTO) 5.6 % (2-12); NEUTROPHILS # (AUTO) 16.6 X10'3 (1.8-7.7); NEUTROPHILS % (AUTO) 84.4 % (42-75); PLATELET COUNT 238 X10'3 (140-440); RED BLOOD COUNT 3.79 X10'6 (4.20-5.60); RED CELL DISTRIBUTION WIDTH 14.1 % (11.5-14.5); WHITE BLOOD COUNT 19.6 X10'3 (4.5-11.0)
[2020-04-27 03:38] LABS: ALBUMIN 2.6 G/DL (3.4-5.0); ANION GAP 8 (8-16); BLOOD UREA NITROGEN 36 MG/DL (7-18); BUN/CREATININE RATIO 23.8 (6.6-38.0); CHLORIDE 113 MMOL/L (99-107); CREATININE 1.51 MG/DL (0.40-0.90); GLUCOSE 157 MG/DL (70-104); MAGNESIUM 1.8 MG/DL (1.5-2.4); PHOSPHORUS 2.4 MG/DL (2.3-4.5); POTASSIUM 3.8 MMOL/L (3.5-5.1); SODIUM 146 MMOL/L (135-145); TOTAL CARBON DIOXIDE 24.9 MMOL/L (24-32); eGFR 36 ML/MIN
--- NOTE | 2020-04-27 04:30 | NUR ---
Paulo Ramirez NP notified of current blood glucose of 115mg/dL. Fluids increased to 250 ml/hr. Order to decrease insulin to 0.05 u / kg placed.
--- NOTE | 2020-04-27 05:30 | NUR ---
Blood glucose 103 mg/dL. Per Paulo Ramirez, COLOR ROOM ATTENDANT decrease insulin drip to 0.02 u/kg. for a total of 1.5u/hr. Leave fluid running at 250 ml/hr.
--- NOTE | 2020-04-27 06:12 | NUR ---
Patients belongings in bedside drawer. Clothing, shorts, shirt and shoes. Insulin pump in bag. Also medication bottle with the name of: Tyrone De Jesus for Pravastatin. Patient has silver necklace on her person.
--- NOTE | 2020-04-27 06:30 | NUR ---
Problems reprioritized. Patient report given, questions answered & plan of care reviewed with CARLA Holly.
[2020-04-27] MEDS: docusate sod 100mg capsule PO SCH (08:00)
[2020-04-27] MEDS: K, MAG and/or Phos replacement - Verify level? MC SCH (08:00)
[2020-04-27] MEDS: K and/or MAG REPLACEMENT MC SCH ×2 (08:07→20:00)
[2020-04-27] MEDS: calcium carbonate/vitamin D3 tablet PO SCH ×2 (08:14→20:41)
[2020-04-27] MEDS: famotidine/PF 10 mg/ml inj IV SCH (08:15)
[2020-04-27] MEDS: aspirin 81mg tab.chew PO SCH (08:15)
[2020-04-27] MEDS: apixaban 5mg tablet PO SCH ×2 (08:15→20:41)
[2020-04-27] MEDS: duloxetine 30mg CAPSULE.DR PO SCH (08:15)
[2020-04-27] MEDS: ondansetron/PF 4mg/2ml inj IV PRN ×2 (08:15→18:46)
[2020-04-27] MEDS: heparin, porcine 5000 units/ml vial SQ SCH ×2 (08:16→20:42)
[2020-04-27] MEDS: amitriptyline 10mg tablet PO SCH (08:31)
[2020-04-27] MEDS: pantoprazole 40mg Tablet.DR PO SCH (08:31)
[2020-04-27] MEDS: budesonide 0.5mg/2ml UD nebule IH SCH ×2 (09:07→21:24)
[2020-04-27] MEDS ORDERED: dextrose 50%-water 50ml dispensing syringe IV PRN ×2 (09:30)
[2020-04-27] MEDS ORDERED: glucagon, human recombinant 1mg kit SUBCUT PRN (09:30)
[2020-04-27] MEDS ORDERED: dextrose ORAL solution 15 GM/59 ML bottle PO PRN ×2 (09:30)
[2020-04-27] MEDS ORDERED: MESSAGE TO PHARMACY PO ONE (09:30)
[2020-04-27] MEDS: potassium cl 20mEq in 1/2 NS 1,000 ML IV SCH ×2 (10:13→20:42)
[2020-04-27] MEDS: dextrose 5%-water 1,000 ML IV SCH (10:14)
[2020-04-27] MEDS: insulin Lispro (HumaLOG) vial - multi-dose SQ SCH ×4 (10:17→21:18)
--- NOTE | 2020-04-27 12:22 | NUR ---
Initial: Pt admit w/ DKA Glu 1335 on admit hx T1DM frequent DKA admits, RADHA possibly CKD 3, and acute hyperkalemia. A1C 11.5 last month admit seen by RUPINDER 03/26 for written/verbal DM ed. Pt hx insulin pump which is apparently broken this admit. Advanced to carb controlled diet from NPO pending PO. R shoulder fx from prior fall pending consult tomorrow per EMR. Cup of ice TIDWM and chopped all texture mods relayed to dietary given pt shoulder issue and prior diet preferences. Will continue to monitor for PO diet tolerance. Rec: 1. continue carb controlled diet; chopped all/cup of ice TIDWM; R shoulder fx 2. monitor for ONS needs 3. routine bowel care 4. weekly wts Addendum: 04/27/20 at [address] Amended: Links added.
[2020-04-27] MEDS ORDERED: proCHLORperazine 10 MG/2 ml inj IV PRN (15:00)
--- NOTE | 2020-04-27 15:02 | NUR ---
Patient in room CICU 2013. I have received report from CARLA Holly and had the opportunity to ask questions and assume patient care.
--- NOTE | 2020-04-27 15:15 | NUR ---
assumed care assessment complete,agree with previous quality rn,no changes,will cont to moniter closely
--- NOTE | 2020-04-27 15:44 | NUR ---
Gave report to Halina (CARLA). Halina transferred pt to Room 314 per bed.
--- NOTE | 2020-04-27 16:00 | NUR ---
f/c dc'd by Elayne icu clerk prior to transfer
--- NOTE | 2020-04-27 18:27 | NUR ---
Problems reprioritized. Patient report given, questions answered & plan of care reviewed with mini Roche.
--- NOTE | 2020-04-27 18:30 | NUR ---
Patient in room MED 314. I have received report from Lyndsey, and had the opportunity to ask questions and assume patient care.
--- NOTE | 2020-04-27 19:58 | NUR ---
Patient refused to eat her dinner. No coverage for dinner blood sugar. Pharmacy called regarding the patient's lantus ans well as short acting insulin. No medication available right now for dinner coverage. The patient's blood sugar before dinner was 287. Will recheck her blood sugar at 2100.
[2020-04-27] MEDS: atorvastatin 10mg tablet PO SCH (20:41)
[2020-04-27] MEDS: morphine 2 MG/ML inj. syringe IV PRN (20:59)
[2020-04-27] MEDS: insulin glargine (Lantus) pen - multi-dose SQ SCH (21:17)
[2020-04-28 02:00] VITALS: BP 116/68
[2020-04-28] MEDS: dextrose 5%-water 1,000 ML IV SCH (05:20)
[2020-04-28] MEDS: potassium cl 20mEq in 1/2 NS 1,000 ML IV SCH ×3 (05:23→18:46)
[2020-04-28] MEDS: morphine 2 MG/ML inj. syringe IV PRN (05:28)
[2020-04-28 05:50] LABS: MAGNESIUM 1.9 MG/DL (1.5-2.4)
[2020-04-28 06:00] VITALS: BP 138/81
--- NOTE | 2020-04-28 06:25 | NUR ---
Problems reprioritized. Patient report given to Lyndsey, questions answered & plan of care reviewed with .
--- NOTE | 2020-04-28 07:13 | NUR ---
PAGER ID: [phone] MESSAGE: RM [id number] no labs ordered. OK to order CBC/CMP x5 days? Thanks ACCE [id number]
[2020-04-28] MEDS: apixaban 5mg tablet PO SCH ×2 (07:39→20:11)
[2020-04-28] MEDS: pantoprazole 40mg Tablet.DR PO SCH (07:39)
[2020-04-28] MEDS: duloxetine 30mg CAPSULE.DR PO SCH (07:39)
[2020-04-28] MEDS: aspirin 81mg tab.chew PO SCH (07:39)
[2020-04-28] MEDS: calcium carbonate/vitamin D3 tablet PO SCH ×2 (07:40→20:11)
[2020-04-28] MEDS: docusate sod 100mg capsule PO SCH (07:40)
[2020-04-28] MEDS: famotidine/PF 10 mg/ml inj IV SCH (07:40)
[2020-04-28] MEDS: heparin, porcine 5000 units/ml vial SQ SCH (07:40)
[2020-04-28] MEDS: amitriptyline 10mg tablet PO SCH (07:52)
[2020-04-28] MEDS: budesonide 0.5mg/2ml UD nebule IH SCH ×2 (08:00→20:24)
[2020-04-28] MEDS: K and/or MAG REPLACEMENT MC SCH ×2 (08:00→20:00)
[2020-04-28] MEDS: insulin Lispro (HumaLOG) vial - multi-dose SQ SCH ×2 (09:12→14:29)
[2020-04-28] MEDS: ondansetron/PF 4mg/2ml inj IV PRN ×2 (09:20→20:12)
[2020-04-28 09:51] LABS: BASOPHILS % (AUTO) 0.3 % (0-1); EOSINOPHILS # (AUTO) 0.1 X10'3 (0-0.9); EOSINOPHILS % (AUTO) 0.5 % (0-6); HEMATOCRIT 34.3 % (35.0-45.0); HEMOGLOBIN 11.1 g/dl (12.0-16.0); LYMPHOCYTES # (AUTO) 2.5 X10'3 (1.1-4.8); LYMPHOCYTES % (AUTO) 18.8 % (21-51); MEAN CORPUSCULAR HEMOGLOBIN 28.2 PG (27.0-31.0); MEAN CORPUSCULAR HGB CONC 32.4 g/dL (33.0-36.5); MEAN CORPUSCULAR VOLUME 87.1 FL (78-98); MEAN PLATELET VOLUME 9.4 FL (7.4-10.4); MONOCYTES # (AUTO) 0.5 X10'3 (0-0.9); MONOCYTES % (AUTO) 3.9 % (2-12); NEUTROPHILS # (AUTO) 10.3 X10'3 (1.8-7.7); NEUTROPHILS % (AUTO) 76.5 % (42-75); PLATELET COUNT 171 X10'3 (140-440); RED BLOOD COUNT 3.94 X10'6 (4.20-5.60); WHITE BLOOD COUNT 13.5 X10'3 (4.5-11.0)
[2020-04-28 10:00] VITALS: BP 122/46
[2020-04-28 10:06] LABS: ALANINE AMINOTRANSFERASE 77 U/L (12-78); ALBUMIN 2.5 G/DL (3.4-5.0); ALBUMIN/GLOBULIN RATIO 0.8 (1.1-1.5); ALKALINE PHOSPHATASE 205 IU/L (46-116); ANION GAP 13 (8-16); ASPARTATE AMINO TRANSFERASE 85 U/L (10-37); BILIRUBIN,TOTAL 0.4 MG/DL (0.1-1.0); BLOOD UREA NITROGEN 21 MG/DL (7-18); CALCIUM 8.2 MG/DL (8.5-10.1); CHLORIDE 104 MMOL/L (99-107); GLUCOSE 320 MG/DL (70-104); MAGNESIUM 1.9 MG/DL (1.5-2.4); POTASSIUM 4.7 MMOL/L (3.5-5.1); SODIUM 137 MMOL/L (135-145); TOTAL CARBON DIOXIDE 19.9 MMOL/L (24-32); TOTAL PROTEIN 5.5 G/DL (6.4-8.2); eGFR 58 ML/MIN
[2020-04-28] MEDS ORDERED: levoFLOXACIN-Levaquin 750MG/D5 150 ML IV SCH (10:10)
[2020-04-28] MEDS ORDERED: lactulose 20gm/30ml cup PO PRN (13:45)
[2020-04-28] MEDS: HYDROcodone/acetaminophen 10/325mg tab PO PRN ×2 (13:51→20:12)
[2020-04-28 14:00] VITALS: BP 122/86
[2020-04-28 18:00] VITALS: BP 141/85
--- NOTE | 2020-04-28 18:18 | NUR ---
Patient in room MED 314. I have received report from Halina AGUIRRE and had the opportunity to ask questions and assume patient care.
--- NOTE | 2020-04-28 18:41 | NUR ---
Problems reprioritized. Patient report given, questions answered & plan of care reviewed with CARLA TODD.
[2020-04-28 22:00] VITALS: BP 139/84
[2020-04-28] MEDS: atorvastatin 10mg tablet PO SCH (22:10)
[2020-04-28] MEDS: diatr meglu/diatrizoate 30ml oral sol.-(3 dose) bottle PO SCH (22:11)
[2020-04-28] MEDS: insulin glargine (Lantus) pen - multi-dose SQ SCH (22:25)
[2020-04-28] MEDS ORDERED: diatr meglu/diatrizoate 30ml oral sol.-(3 dose) bottle PO SCH (22:46)
[2020-04-29 02:00] VITALS: BP 119/80
[2020-04-29 03:11] LABS: BASOPHILS # (AUTO) 0.1 X10'3 (0-0.2); BASOPHILS % (AUTO) 0.9 % (0-1); EOSINOPHILS # (AUTO) 0.1 X10'3 (0-0.9); EOSINOPHILS % (AUTO) 1.5 % (0-6); HEMATOCRIT 34.1 % (35.0-45.0); HEMOGLOBIN 11.4 g/dl (12.0-16.0); LYMPHOCYTES # (AUTO) 2.5 X10'3 (1.1-4.8); LYMPHOCYTES % (AUTO) 32.1 % (21-51); MEAN CORPUSCULAR HEMOGLOBIN 28.8 PG (27.0-31.0); MEAN CORPUSCULAR HGB CONC 33.4 g/dL (33.0-36.5); MEAN CORPUSCULAR VOLUME 86.1 FL (78-98); MEAN PLATELET VOLUME 8.6 FL (7.4-10.4); MONOCYTES # (AUTO) 0.4 X10'3 (0-0.9); MONOCYTES % (AUTO) 4.8 % (2-12); NEUTROPHILS # (AUTO) 4.8 X10'3 (1.8-7.7); NEUTROPHILS % (AUTO) 60.7 % (42-75); PLATELET COUNT 147 X10'3 (140-440); RED BLOOD COUNT 3.96 X10'6 (4.20-5.60); WHITE BLOOD COUNT 7.9 X10'3 (4.5-11.0)
[2020-04-29 03:34] LABS: ALANINE AMINOTRANSFERASE 72 U/L (12-78); ALBUMIN 2.5 G/DL (3.4-5.0); ALBUMIN/GLOBULIN RATIO 0.9 (1.1-1.5); ALKALINE PHOSPHATASE 194 IU/L (46-116); ANION GAP 3 (8-16); ASPARTATE AMINO TRANSFERASE 77 U/L (10-37); BILIRUBIN,TOTAL 0.5 MG/DL (0.1-1.0); BLOOD UREA NITROGEN 15 MG/DL (7-18); CALCIUM 8.2 MG/DL (8.5-10.1); CHLORIDE 105 MMOL/L (99-107); CREATININE 0.94 MG/DL (0.40-0.90); GLUCOSE 223 MG/DL (70-104); MAGNESIUM 1.9 MG/DL (1.5-2.4); PHOSPHORUS 1.9 MG/DL (2.3-4.5); POTASSIUM 4.3 MMOL/L (3.5-5.1); SODIUM 134 MMOL/L (135-145); TOTAL CARBON DIOXIDE 26.5 MMOL/L (24-32); TOTAL PROTEIN 5.2 G/DL (6.4-8.2); eGFR 63 ML/MIN
[2020-04-29 06:00] VITALS: BP 125/86
[2020-04-29] MEDS: potassium cl 20mEq in 1/2 NS 1,000 ML IV SCH ×2 (06:03→23:00)
--- NOTE | 2020-04-29 06:20 | NUR ---
Patient in room MED 314. I have received report from CARLA Guerrero and had the opportunity to ask questions and assume patient care.
--- NOTE | 2020-04-29 06:35 | NUR ---
Problems reprioritized. Patient report given, questions answered & plan of care reviewed with Keli AGUIRRE.
[2020-04-29] MEDS: budesonide 0.5mg/2ml UD nebule IH SCH ×2 (07:47→20:12)
[2020-04-29] MEDS: diatr meglu/diatrizoate 30ml oral sol.-(3 dose) bottle PO SCH ×2 (07:57→10:41)
[2020-04-29] MEDS: K and/or MAG REPLACEMENT MC SCH ×2 (08:00→20:00)
[2020-04-29] MEDS: insulin Lispro (HumaLOG) vial - multi-dose SQ SCH ×3 (08:05→19:53)
[2020-04-29 10:00] VITALS: BP 137/96
--- NOTE | 2020-04-29 10:45 | NUR ---
PT TO CT.
[2020-04-29] MEDS ORDERED: iohexol 300mg/ml 100ml inj. ONE (10:52)
--- NOTE | 2020-04-29 11:25 | NUR ---
Reassessment: Pt advanced to carb controlled diet PO 50-75% meals improving w/ each meal so far. DKA resolved per MD w/ possible PNA per MD. No BM yet 3 days receiving colace. RUPINDER d/w RN regarding phos replacement if MD agreeable; 1.9 today. Receiving Na/K replacements per protocol. Glu 186 at this time down from 310 earlier this AM. Will continue to monitor for PO hx and additional protein needs. Rec: 1. continue carb controlled diet; chopped all/cup of ice TIDWM; R shoulder fx 2. monitor for ONS needs 3. routine bowel care 4. weekly wts Addendum: 04/29/20 at [address] Amended: Links added.
[2020-04-29] MEDS: pantoprazole 40mg Tablet.DR PO SCH (12:51)
[2020-04-29] MEDS: aspirin 81mg tab.chew PO SCH (12:52)
[2020-04-29] MEDS: amitriptyline 10mg tablet PO SCH (12:52)
[2020-04-29] MEDS: HYDROcodone/acetaminophen 10/325mg tab PO PRN ×2 (12:52→21:01)
[2020-04-29] MEDS: apixaban 5mg tablet PO SCH ×2 (12:53→20:00)
[2020-04-29] MEDS: duloxetine 30mg CAPSULE.DR PO SCH (12:53)
[2020-04-29] MEDS: calcium carbonate/vitamin D3 tablet PO SCH ×2 (12:53→19:53)
[2020-04-29] MEDS: docusate sod 100mg capsule PO SCH (12:53)
[2020-04-29 14:00] VITALS: BP 128/90
[2020-04-29] MEDS: ondansetron/PF 4mg/2ml inj IV PRN ×2 (14:50→21:01)
[2020-04-29] MEDS ORDERED: furosemide 40mg/4ml inj IV ONE (15:10)
[2020-04-29] MEDS: metroNIDAZOLE-Flagyl 500mg/NS 100 ML IV SCH ×2 (17:03→23:36)
[2020-04-29 18:00] VITALS: BP 127/87
--- NOTE | 2020-04-29 18:17 | NUR ---
Problems reprioritized. Patient report given, questions answered & plan of care reviewed with CARLA Guerrero.
--- NOTE | 2020-04-29 18:33 | NUR ---
Patient in room MED 314. I have received report from Sol AGUIRRE and had the opportunity to ask questions and assume patient care.
[2020-04-29] MEDS: furosemide 40mg/4ml inj IV SCH (19:54)
[2020-04-29] MEDS: albuterol 2.5 MG/3 ML nebule NEB PRN (20:12)
[2020-04-29] MEDS: atorvastatin 10mg tablet PO SCH (20:37)
[2020-04-29] MEDS: insulin glargine (Lantus) pen - multi-dose SQ SCH (20:46)
[2020-04-29 22:00] VITALS: BP 110/66
[2020-04-30 02:00] VITALS: BP 115/75
[2020-04-30 06:00] VITALS: BP 112/78
[2020-04-30 06:23] LABS: BASOPHILS % (AUTO) 0.4 % (0-1); EOSINOPHILS # (AUTO) 0.2 X10'3 (0-0.9); EOSINOPHILS % (AUTO) 2.7 % (0-6); HEMATOCRIT 35.4 % (35.0-45.0); HEMOGLOBIN 11.8 g/dl (12.0-16.0); LYMPHOCYTES # (AUTO) 1.8 X10'3 (1.1-4.8); LYMPHOCYTES % (AUTO) 29.1 % (21-51); MEAN CORPUSCULAR HGB CONC 33.4 g/dL (33.0-36.5); MEAN CORPUSCULAR VOLUME 86.8 FL (78-98); MEAN PLATELET VOLUME 8.2 FL (7.4-10.4); MONOCYTES # (AUTO) 0.4 X10'3 (0-0.9); NEUTROPHILS # (AUTO) 3.8 X10'3 (1.8-7.7); NEUTROPHILS % (AUTO) 61.8 % (42-75); PLATELET COUNT 135 X10'3 (140-440); RED BLOOD COUNT 4.08 X10'6 (4.20-5.60); RED CELL DISTRIBUTION WIDTH 14.5 % (11.5-14.5); WHITE BLOOD COUNT 6.2 X10'3 (4.5-11.0)
--- NOTE | 2020-04-30 06:25 | NUR ---
Problems reprioritized. Patient report given, questions answered & plan of care reviewed with Halina AGUIRRE.
[2020-04-30 06:36] LABS: ALANINE AMINOTRANSFERASE 65 U/L (12-78); ALBUMIN 2.4 G/DL (3.4-5.0); ALBUMIN/GLOBULIN RATIO 0.9 (1.1-1.5); ALKALINE PHOSPHATASE 207 IU/L (46-116); ANION GAP 4 (8-16); ASPARTATE AMINO TRANSFERASE 49 U/L (10-37); BILIRUBIN,TOTAL 0.4 MG/DL (0.1-1.0); BLOOD UREA NITROGEN 10 MG/DL (7-18); BUN/CREATININE RATIO 12.7 (6.6-38.0); CALCIUM 8.3 MG/DL (8.5-10.1); CHLORIDE 104 MMOL/L (99-107); CREATININE 0.79 MG/DL (0.40-0.90); GLUCOSE 106 MG/DL (70-104); MAGNESIUM 1.7 MG/DL (1.5-2.4); PHOSPHORUS 3.3 MG/DL (2.3-4.5); POTASSIUM 3.5 MMOL/L (3.5-5.1); SODIUM 141 MMOL/L (135-145); TOTAL CARBON DIOXIDE 32.8 MMOL/L (24-32); TOTAL PROTEIN 5.1 G/DL (6.4-8.2); eGFR 77 ML/MIN
[2020-04-30] MEDS: pantoprazole 40mg Tablet.DR PO SCH (07:09)
[2020-04-30] MEDS: potassium cl 20mEq in 1/2 NS 1,000 ML IV SCH ×2 (07:15→16:33)
[2020-04-30] MEDS: apixaban 5mg tablet PO SCH ×2 (08:00→20:15)
[2020-04-30] MEDS: K and/or MAG REPLACEMENT MC SCH ×2 (08:00→20:00)
[2020-04-30] MEDS: budesonide 0.5mg/2ml UD nebule IH SCH ×2 (08:20→19:55)
[2020-04-30] MEDS: metroNIDAZOLE-Flagyl 500mg/NS 100 ML IV SCH (08:45)
[2020-04-30] MEDS: amitriptyline 10mg tablet PO SCH (08:46)
[2020-04-30] MEDS: calcium carbonate/vitamin D3 tablet PO SCH ×2 (08:46→20:15)
[2020-04-30] MEDS: duloxetine 30mg CAPSULE.DR PO SCH (08:46)
[2020-04-30] MEDS: docusate sod 100mg capsule PO SCH (08:46)
[2020-04-30] MEDS: aspirin 81mg tab.chew PO SCH (08:46)
[2020-04-30] MEDS: furosemide 40mg/4ml inj IV SCH ×2 (08:46→20:00)
[2020-04-30] MEDS: insulin Lispro (HumaLOG) vial - multi-dose SQ SCH ×3 (09:42→22:34)
[2020-04-30 10:00] VITALS: BP 117/78
[2020-04-30] MEDS ORDERED: levoFLOXACIN 750MG TABLET PO SCH (11:00)
--- NOTE | 2020-04-30 12:00 | NUR ---
Ultrasound complete to abd,angio stated not enough fluid present for paracentesis
[2020-04-30] MEDS: ondansetron 4mg rapidly disintigrating tab PO PRN (12:32)
[2020-04-30 14:00] VITALS: BP 104/71
[2020-04-30] MEDS: metroNIDAZOLE 500mg tablet PO SCH ×2 (16:39→23:57)
[2020-04-30 18:00] VITALS: BP 115/68
--- NOTE | 2020-04-30 18:36 | NUR ---
Problems reprioritized. Patient report given, questions answered & plan of care reviewed with mini mccracken.
[2020-04-30] MEDS: albuterol 2.5 MG/3 ML nebule NEB PRN (19:55)
[2020-04-30] MEDS: atorvastatin 10mg tablet PO SCH (20:15)
[2020-04-30] MEDS: lactobacillus rhamnosus 10,000 MMU CELLS/CAPSULE PO SCH (20:15)
[2020-04-30 22:00] VITALS: BP 118/73
[2020-04-30] MEDS: HYDROcodone/acetaminophen 10/325mg tab PO PRN (22:17)
[2020-04-30] MEDS: insulin glargine (Lantus) pen - multi-dose SQ SCH (22:26)
[2020-05-01 02:00] VITALS: BP 124/76
[2020-05-01] MEDS: potassium cl 20mEq in 1/2 NS 1,000 ML IV SCH (03:40)
[2020-05-01 05:59] LABS: BASOPHILS % (AUTO) 0.5 % (0-1); EOSINOPHILS # (AUTO) 0.2 X10'3 (0-0.9); HEMATOCRIT 36.9 % (35.0-45.0); HEMOGLOBIN 12.2 g/dl (12.0-16.0); LYMPHOCYTES # (AUTO) 1.7 X10'3 (1.1-4.8); MEAN CORPUSCULAR HEMOGLOBIN 28.3 PG (27.0-31.0); MEAN CORPUSCULAR VOLUME 85.5 FL (78-98); MEAN PLATELET VOLUME 8.6 FL (7.4-10.4); MONOCYTES # (AUTO) 0.5 X10'3 (0-0.9); MONOCYTES % (AUTO) 10.3 % (2-12); NEUTROPHILS # (AUTO) 2.1 X10'3 (1.8-7.7); NEUTROPHILS % (AUTO) 47.2 % (42-75); PLATELET COUNT 143 X10'3 (140-440); RED BLOOD COUNT 4.31 X10'6 (4.20-5.60); RED CELL DISTRIBUTION WIDTH 14.8 % (11.5-14.5); WHITE BLOOD COUNT 4.5 X10'3 (4.5-11.0)
[2020-05-01 06:13] LABS: ALANINE AMINOTRANSFERASE 52 U/L (12-78); ALBUMIN 2.6 G/DL (3.4-5.0); ALBUMIN/GLOBULIN RATIO 0.9 (1.1-1.5); ALKALINE PHOSPHATASE 204 IU/L (46-116); ANION GAP 4 (8-16); ASPARTATE AMINO TRANSFERASE 22 U/L (10-37); BILIRUBIN,TOTAL 0.4 MG/DL (0.1-1.0); BLOOD UREA NITROGEN 12 MG/DL (7-18); BUN/CREATININE RATIO 15.8 (6.6-38.0); CALCIUM 8.7 MG/DL (8.5-10.1); CHLORIDE 103 MMOL/L (99-107); CREATININE 0.76 MG/DL (0.40-0.90); GLUCOSE 89 MG/DL (70-104); LIPASE < 50 U/L (73-393); MAGNESIUM 1.6 MG/DL (1.5-2.4); PHOSPHORUS 4.8 MG/DL (2.3-4.5); POTASSIUM 3.3 MMOL/L (3.5-5.1); SODIUM 139 MMOL/L (135-145); TOTAL CARBON DIOXIDE 32.3 MMOL/L (24-32); TOTAL PROTEIN 5.6 G/DL (6.4-8.2); eGFR 80 ML/MIN
--- NOTE | 2020-05-01 06:24 | NUR ---
Problems reprioritized. Patient report given, questions answered & plan of care reviewed with Carmen AGUIRRE.
[2020-05-01 07:00] VITALS: BP 126/70
[2020-05-01] MEDS: calcium carbonate/vitamin D3 tablet PO SCH (08:19)
[2020-05-01] MEDS: apixaban 5mg tablet PO SCH (08:19)
[2020-05-01] MEDS: pantoprazole 40mg Tablet.DR PO SCH (08:19)
[2020-05-01] MEDS: duloxetine 30mg CAPSULE.DR PO SCH (08:19)
[2020-05-01] MEDS: amitriptyline 10mg tablet PO SCH (08:19)
[2020-05-01] MEDS: docusate sod 100mg capsule PO SCH (08:19)
[2020-05-01] MEDS: aspirin 81mg tab.chew PO SCH (08:19)
[2020-05-01] MEDS: lactobacillus rhamnosus 10,000 MMU CELLS/CAPSULE PO SCH (08:19)
[2020-05-01] MEDS: metroNIDAZOLE 500mg tablet PO SCH (08:19)
[2020-05-01] MEDS: furosemide 40mg/4ml inj IV SCH (08:20)
[2020-05-01] MEDS: K and/or MAG REPLACEMENT MC SCH (08:25)
[2020-05-01] MEDS ORDERED: magnesium Cl slow-release 64mg tablet PO PRN (08:30)
[2020-05-01] MEDS ORDERED: magnesium 4gm in 100ml NS 100 ML IV PRN (08:30)
[2020-05-01] MEDS ORDERED: potassium Cl 20 mEq SR tablet PO PRN ×2 (08:30)
[2020-05-01] MEDS ORDERED: potassium CL 10mEq/100ml bag 100 ML IV PRN (08:30)
[2020-05-01] MEDS ORDERED: K and/or MAG REPLACEMENT MC SCH (08:30)
[2020-05-01] MEDS: albuterol 2.5 MG/3 ML nebule NEB PRN (08:34)
[2020-05-01] MEDS: budesonide 0.5mg/2ml UD nebule IH SCH (08:35)
[2020-05-01] MEDS: insulin Lispro (HumaLOG) vial - multi-dose SQ SCH (09:01)
--- NOTE | 2020-05-01 09:03 | NUR ---
PAGER ID: [phone] MESSAGE: [id number]: Juana Ferrari: FYI - reordered K and Mg replacement protocol. K IS 3.3 - Carmen [phone]
[2020-05-01 10:00] VITALS: BP 101/62
[2020-05-01] MEDS ORDERED: LACT1CAP26 PO (10:28)
[2020-05-01] MEDS ORDERED: METR-159 PO (10:28)
[2020-05-01] MEDS ORDERED: FURO-150 PO (10:28)
[2020-05-01] MEDS ORDERED: LEVO750T46 PO (10:28)
--- NOTE | 2020-05-01 10:37 | NUR ---
F/u(05/01): Dietary TC:Pt requests double proteins TIDWM; will provide on meals. Addendum: 05/01/20 at [address] Amended: Links added.
--- NOTE | 2020-05-01 13:34 | NUR ---
Patient in room MED 314. I have received report from CARLA Guerrero and had the opportunity to ask questions and assume patient care. Addendum: 05/01/20 at 1340 by Carmen De Guzman RN Received report at 2530
--- NOTE | 2020-05-01 14:54 | NUR ---
Pt stable for discharge per MD orders. Provided discharge instruction and education. Answered any questions pt may have, Pt to receive meds at [facility] on [facility]. Tele monitor removed. PIV removed. Belongings sent with pt. Transported pt downstairs via wheelchair to private vehicle.
== END 2020-05-01 13:45 | disposition home health service (06) | DRG 720 ==
LOC: ER 11:16 → ED HOLD 13:43 → CICU 2S 15:06 → MED 3N 04-27 15:43
PROVIDERS: ADMIT Internal Medicine Critical Care Medicine; ATTEND Internal Medicine Critical Care Medicine
DX: A41.9 Sepsis, unspecified organism (principal); R65.21 Severe sepsis with septic shock; E10.11 Type 1 diabetes mellitus with ketoacidosis with coma; E78.00 Pure hypercholesterolemia, unspecified; J69.0 Pneumonitis due to inhalation of food and vomit; E78.5 Hyperlipidemia, unspecified; E86.0 Dehydration; I11.0 Hypertensive heart disease with heart failure; I48.91 Unspecified atrial fibrillation; I50.9 Heart failure, unspecified; K52.9 Noninfective gastroenteritis and colitis, unspecified; R18.8 Other ascites; I45.6 Pre-excitation syndrome; I48.0 Paroxysmal atrial fibrillation; F32.9 Major depressive disorder, single episode, unspecified; J45.909 Unspecified asthma, uncomplicated; N17.9 Acute kidney failure, unspecified; F41.9 Anxiety disorder, unspecified; Z96.41 Presence of insulin pump (external) (internal); Z20.828 Contact with and (suspected) exposure to other viral communicable diseases; Z91.19 Patient's noncompliance with other medical treatment and regimen; Z79.01 Long term (current) use of anticoagulants; Z79.4 Long term (current) use of insulin; Z88.0 Allergy status to penicillin; Z88.1 Allergy status to other antibiotic agents; Z88.8 Allergy status to other drugs, medicaments and biological substances; Z90.710 Acquired absence of both cervix and uterus; Z80.8 Family history of malignant neoplasm of other organs or systems; Z85.41 Personal history of malignant neoplasm of cervix uteri; Z85.841 Personal history of malignant neoplasm of brain; W18.39XA Other fall on same level, initial encounter; Y93.89 Activity, other specified; Y92.89 Other specified places as the place of occurrence of the external cause; Y99.8 Other external cause status
CPT/HCPCS: 36415; 36569; 36600; 71045; 71260; 74177; 76705; 80048; 80053; 80305; 81001; 81025; 82330; 82803; 82947; 82948; 83605; 83690; 83735; 83880; 84100; 84145; 84484; 85018; 85025; 87040; 87081; 93005; 93306; 94640; 94760; 96360; 96361; 97110; 97116; 97162; 97530; 99291; G0378; J0780; J1644; J1815; J1940; J1956; J2270; J2405; J3480; J3490; J7030; J7070; J7120; J7626; Q9963; Q9967

== ENCOUNTER 2020-05-07 14:57 | Emergency (ER) | payer MEDICAID ==
[~2020-05-07] VITALS: Ht 170.2 cm; Wt 67.3 kg
[~2020-05-07 14:57] MED LIST changes: +FURO-150 PO; +LACT1CAP26 PO; +LEVO750T46 PO; +METR-159 PO
[2020-05-07] MEDS ORDERED: metoclopramide 5 mg/ml inj IV ONE (15:25)
[2020-05-07] MEDS ORDERED: normal saline 1000ML IV soln IVB ONE ×2 (15:25→16:25)
[2020-05-07] MEDS ORDERED: insulin regular, human 10 units/0.1 ml syringe IV ONE (15:25)
[2020-05-07] MEDS ORDERED: insulin regular, human U-100 3ml vial - multi-dose IV ONE ×3 (15:30→16:20)
[2020-05-07 15:49] LABS: BASOPHILS # (AUTO) 0.1 X10'3 (0-0.2); BASOPHILS % (AUTO) 1.3 % (0-1); EOSINOPHILS # (AUTO) 0.2 X10'3 (0-0.9); EOSINOPHILS % (AUTO) 2.9 % (0-6); HEMATOCRIT 40.7 % (35.0-45.0); HEMOGLOBIN 13.1 g/dl (12.0-16.0); LYMPHOCYTES # (AUTO) 1.4 X10'3 (1.1-4.8); LYMPHOCYTES % (AUTO) 21.1 % (21-51); MEAN CORPUSCULAR HEMOGLOBIN 28.3 PG (27.0-31.0); MEAN CORPUSCULAR HGB CONC 32.1 g/dL (33.0-36.5); MEAN CORPUSCULAR VOLUME 88.2 FL (78-98); MEAN PLATELET VOLUME 9.1 FL (7.4-10.4); MONOCYTES # (AUTO) 0.5 X10'3 (0-0.9); MONOCYTES % (AUTO) 7.8 % (2-12); NEUTROPHILS # (AUTO) 4.3 X10'3 (1.8-7.7); NEUTROPHILS % (AUTO) 66.9 % (42-75); PLATELET COUNT 281 X10'3 (140-440); RED BLOOD COUNT 4.62 X10'6 (4.20-5.60); RED CELL DISTRIBUTION WIDTH 15.5 % (11.5-14.5); WHITE BLOOD COUNT 6.5 X10'3 (4.5-11.0)
[2020-05-07 16:06] LABS: ALANINE AMINOTRANSFERASE 58 U/L (12-78); ALBUMIN 3.6 G/DL (3.4-5.0); ALKALINE PHOSPHATASE 176 IU/L (46-116); ANION GAP 11 (8-16); ASPARTATE AMINO TRANSFERASE 69 U/L (10-37); BILIRUBIN,TOTAL 0.7 MG/DL (0.1-1.0); BLOOD UREA NITROGEN 17 MG/DL (7-18); BUN/CREATININE RATIO 20.7 (6.6-38.0); CHLORIDE 97 MMOL/L (99-107); CREATININE 0.82 MG/DL (0.40-0.90); SODIUM 130 MMOL/L (135-145); TOTAL CARBON DIOXIDE 22.2 MMOL/L (24-32); TOTAL PROTEIN 7.2 G/DL (6.4-8.2); eGFR 73 ML/MIN
[2020-05-07 16:10] LABS: POTASSIUM 4.8 MMOL/L (3.5-5.1)
[2020-05-07 16:16] LABS: GLUCOSE 652 MG/DL (70-104)
[2020-05-07 16:22] LABS: CLARITY,URINE CLEAR (Clear); COLOR,URINE STRAW (Yellow); GLUCOSE, URINE >=1000 mg/dl (Neg); KETONES,URINE 15 mg/dl (Neg); LEUKOCYTE ESTERASE ,URINE NEGATIVE (Neg); NITRITES, URINE NEGATIVE (Neg); OCCULT BLOOD,URINE NEGATIVE (Neg); PH,URINE 5.5 (4.8-8.0); PROTEIN,URINE NEGATIVE (Neg); UA COLLECTION TYPE CLN CATCH MIDSTREAM; UROBILINOGEN,URINE 0.2 E.U/dL (0.2-1.0)
[2020-05-07 16:29] LABS: URINE AMPHETAMINE SCREEN NEGATIVE (Neg); URINE BARBITUATE SCREEN NEGATIVE (Neg); URINE BENZODIAZEPINES SCREEN NEGATIVE (Neg); URINE CANNABINOID SCREEN NEGATIVE (Neg); URINE COCAINE SCREEN NEGATIVE (Neg); URINE METHADONE SCREEN NEGATIVE (Neg); URINE OPIATE SCREEN NEGATIVE (Neg); URINE PHENCYCLIDINE SCREEN NEGATIVE (Neg)
[2020-05-07 16:31] LABS: SQUAMOUS EPITHELIAL CELL,UR FEW /LPF (FEW)
[2020-05-07 16:32] LABS: BACTERIA,URINE FEW /HPF (Neg); RBC,URINE 0-2 /HPF (0-2); WBC,URINE 0-4 /HPF (0-4)
[2020-05-07 16:35] LABS: ABG BASE EXCESS -4.7 mmol/L (-2.0-2.0); ABG HCO3 19.2 mmol/L (22.0-26.0); ABG OXYGEN SATURATION 96.6 % (94-97); ABG PCO2 (T) 32.1 mmHg (32.0-45.0); ABG PO2 (T) 89.5 mmHg (75.0-100.0); ALLEN'S TEST POSITIVE; FCOHb 4.5 % (0.0-3.9); FLOW 0 L/min; FO2Hb 92.3 % (94-97); TOTAL HEMOGLOBIN 12.2 G/dl (12.0-16.0)
--- NOTE | 2020-05-07 19:57 | NUR ---
CONTACTED [employer] RE: PATIENT'S INSULIN PUMP. LEFT MESSAGE WITH PATIENT'S CONTACT INFO. INFORMED PATIENT AND SHE WILL FOLLOW UP IN THE AM. IF NO CALL BACK.
[2020-05-07 20:02] VITALS: BP 133/78
== END 2020-05-07 20:05 | disposition home or self-care (01) ==
LOC: ER 14:58
DX: E10.65 Type 1 diabetes mellitus with hyperglycemia (principal); E87.1 Hypo-osmolality and hyponatremia; R10.9 Unspecified abdominal pain; I48.91 Unspecified atrial fibrillation; I50.9 Heart failure, unspecified; E78.00 Pure hypercholesterolemia, unspecified; J45.909 Unspecified asthma, uncomplicated; K21.9 Gastro-esophageal reflux disease without esophagitis; G89.29 Other chronic pain; F41.9 Anxiety disorder, unspecified; Z90.49 Acquired absence of other specified parts of digestive tract; Z90.710 Acquired absence of both cervix and uterus; Z98.890 Other specified postprocedural states; Z56.0 Unemployment, unspecified; Z88.1 Allergy status to other antibiotic agents; Z88.0 Allergy status to penicillin; Z88.8 Allergy status to other drugs, medicaments and biological substances; Z79.899 Other long term (current) drug therapy; Z88.2 Allergy status to sulfonamides
CPT/HCPCS: 36415; 36600; 80053; 80305; 81001; 82803; 82948; 85018; 85025; 93005; 96361; 96374; 96375; 96376; 99284; J1815; J2765; J7030

== ENCOUNTER 2020-06-02 23:59 | Emergency (ER) | payer MEDICAID ==
[~2020-06-02] VITALS: Ht 170.2 cm; Wt 63.6 kg
[~2020-06-02 23:59] MED LIST changes: -FURO-150 PO; -HYDR-4353 PO; -METR-159 PO
[2020-06-03 00:50] LABS: BASOPHILS # (AUTO) 0.1 X10'3 (0-0.2); BASOPHILS % (AUTO) 1.1 % (0-1); EOSINOPHILS # (AUTO) 0.2 X10'3 (0-0.9); EOSINOPHILS % (AUTO) 2.2 % (0-6); HEMATOCRIT 37.8 % (35.0-45.0); HEMOGLOBIN 12.5 g/dl (12.0-16.0); LYMPHOCYTES # (AUTO) 1.7 X10'3 (1.1-4.8); LYMPHOCYTES % (AUTO) 17.6 % (21-51); MEAN CORPUSCULAR HEMOGLOBIN 28.9 PG (27.0-31.0); MEAN CORPUSCULAR VOLUME 87.6 FL (78-98); MEAN PLATELET VOLUME 9.4 FL (7.4-10.4); MONOCYTES # (AUTO) 0.6 X10'3 (0-0.9); MONOCYTES % (AUTO) 6.9 % (2-12); NEUTROPHILS # (AUTO) 6.8 X10'3 (1.8-7.7); NEUTROPHILS % (AUTO) 72.2 % (42-75); PLATELET COUNT 187 X10'3 (140-440); RED BLOOD COUNT 4.31 X10'6 (4.20-5.60); RED CELL DISTRIBUTION WIDTH 16.8 % (11.5-14.5); WHITE BLOOD COUNT 9.4 X10'3 (4.5-11.0)
[2020-06-03 01:07] LABS: ALANINE AMINOTRANSFERASE 90 U/L (12-78); ALBUMIN 3.2 G/DL (3.4-5.0); ALKALINE PHOSPHATASE 128 IU/L (46-116); ANION GAP 9 (8-16); ASPARTATE AMINO TRANSFERASE 49 U/L (10-37); BILIRUBIN,TOTAL 0.3 MG/DL (0.1-1.0); BLOOD UREA NITROGEN 20 MG/DL (7-18); BUN/CREATININE RATIO 31.7 (6.6-38.0); CHLORIDE 102 MMOL/L (99-107); CREATININE 0.63 MG/DL (0.40-0.90); GLUCOSE 210 MG/DL (70-104); LIPASE 261 U/L (73-393); POTASSIUM 3.9 MMOL/L (3.5-5.1); SODIUM 139 MMOL/L (135-145); TOTAL PROTEIN 6.5 G/DL (6.4-8.2); eGFR > 90 ML/MIN
[2020-06-03] MEDS ORDERED: normal saline 1000ml 1,000 ML IV ONE (01:15)
[2020-06-03] MEDS ORDERED: acetaminophen 325mg tablet PO ONE (01:15)
--- NOTE | 2020-06-03 01:16 | NUR ---
DR MIMS AT BEDSIDE TO EVALUATE FB IN EAR. PT REPORTS SEVERE MATTHEWS.
[2020-06-03 01:34] LABS: TROPONIN I < 0.04 NG/ML (0.0-0.05)
[2020-06-03 03:50] LABS: CLARITY,URINE CLEAR (Clear); COLOR,URINE YELLOW (Yellow); GLUCOSE, URINE 500 mg/dl (Neg); KETONES,URINE NEGATIVE (Neg); LEUKOCYTE ESTERASE ,URINE NEGATIVE (Neg); NITRITES, URINE NEGATIVE (Neg); OCCULT BLOOD,URINE NEGATIVE (Neg); PH,URINE 6.5 (4.8-8.0); PROTEIN,URINE NEGATIVE (Neg); UA COLLECTION TYPE NON-SPECIFIED; UROBILINOGEN,URINE 0.2 E.U/dL (0.2-1.0)
[2020-06-03 03:51] LABS: URINE HCG NEGATIVE (NEG)
--- NOTE | 2020-06-03 05:01 | NUR ---
pt reports painto her right shouder(chronic). states [address] Pratt awareand ordering toradol (pt ok to take toradol, cannot take oral nsaids dt "bad for my stomach")
[2020-06-03] MEDS ORDERED: ketorolac tromethamine 15mg/ml inj. IM ONE ×3 (05:05→05:30)
[2020-06-03 05:07] VITALS: BP 115/67
== END 2020-06-03 05:53 | disposition home or self-care (01) ==
LOC: ER 06-03 00:01
DX: R07.89 Other chest pain (principal); E11.65 Type 2 diabetes mellitus with hyperglycemia; R51 Headache; I48.91 Unspecified atrial fibrillation; I50.9 Heart failure, unspecified; E80.0 Hereditary erythropoietic porphyria; J45.909 Unspecified asthma, uncomplicated; K21.9 Gastro-esophageal reflux disease without esophagitis; G89.29 Other chronic pain; F41.9 Anxiety disorder, unspecified; F32.9 Major depressive disorder, single episode, unspecified; Z90.49 Acquired absence of other specified parts of digestive tract; Z90.710 Acquired absence of both cervix and uterus; Z98.890 Other specified postprocedural states; Z56.0 Unemployment, unspecified; Z88.1 Allergy status to other antibiotic agents; Z88.0 Allergy status to penicillin; Z88.8 Allergy status to other drugs, medicaments and biological substances; Z79.4 Long term (current) use of insulin; Z79.899 Other long term (current) drug therapy; Z79.82 Long term (current) use of aspirin; Z79.01 Long term (current) use of anticoagulants
CPT/HCPCS: 36415; 71046; 80053; 81003; 81025; 82948; 83690; 84484; 85025; 93005; 96360; 96372; 99285; J1885; J7030

== ENCOUNTER 2020-07-07 15:41 | Emergency (ER) | payer MEDICAID ==
[~2020-07-07] VITALS: Ht 170.2 cm; Wt 66.0 kg
[~2020-07-07 15:41] MED LIST changes: -ALEN70TA13 PO; +ALEN70TA80 PO
[2020-07-07 16:51] VITALS: BP 159/67
[2020-07-07 17:45] LABS: BASOPHILS % (AUTO) 0.3 % (0-1); EOSINOPHILS % (AUTO) 0.3 % (0-6); HEMATOCRIT 47.4 % (35.0-45.0); HEMOGLOBIN 15.5 g/dl (12.0-16.0); LYMPHOCYTES # (AUTO) 1.6 X10'3 (1.1-4.8); LYMPHOCYTES % (AUTO) 10.7 % (21-51); MEAN CORPUSCULAR HEMOGLOBIN 28.6 PG (27.0-31.0); MEAN CORPUSCULAR HGB CONC 32.7 g/dL (33.0-36.5); MEAN CORPUSCULAR VOLUME 87.5 FL (78-98); MEAN PLATELET VOLUME 9.5 FL (7.4-10.4); NEUTROPHILS # (AUTO) 12.1 X10'3 (1.8-7.7); NEUTROPHILS % (AUTO) 81.7 % (42-75); PLATELET COUNT 192 X10'3 (140-440); RED BLOOD COUNT 5.42 X10'6 (4.20-5.60); RED CELL DISTRIBUTION WIDTH 15.5 % (11.5-14.5); WHITE BLOOD COUNT 14.8 X10'3 (4.5-11.0)
[2020-07-07] MEDS ORDERED: LORazepam 1 MG tablet PO ONE (17:45)
--- NOTE | 2020-07-07 17:53 | NUR ---
discussed pt's c/o of MATTHEWS pain 03/12 w/ ANDREW Ledbetter;new order for Tylenol 650mg PO recieved.
[2020-07-07] MEDS ORDERED: acetaminophen 325mg tablet PO ONE (17:55)
[2020-07-07 18:04] LABS: ALANINE AMINOTRANSFERASE 37 U/L (12-78); ALBUMIN 3.4 G/DL (3.4-5.0); ALBUMIN/GLOBULIN RATIO 0.8 (1.1-1.5); ALKALINE PHOSPHATASE 153 IU/L (46-116); ANION GAP 12 (8-16); ASPARTATE AMINO TRANSFERASE 23 U/L (10-37); BILIRUBIN,TOTAL 0.7 MG/DL (0.1-1.0); BLOOD UREA NITROGEN 18 MG/DL (7-18); BUN/CREATININE RATIO 19.1 (6.6-38.0); CALCIUM 9.1 MG/DL (8.5-10.1); CHLORIDE 95 MMOL/L (99-107); CREATININE 0.94 MG/DL (0.40-0.90); GLUCOSE 284 MG/DL (70-104); POTASSIUM 3.5 MMOL/L (3.5-5.1); SODIUM 132 MMOL/L (135-145); TOTAL CARBON DIOXIDE 25.4 MMOL/L (24-32); TOTAL PROTEIN 7.7 G/DL (6.4-8.2); eGFR 63 ML/MIN
[2020-07-07 18:44] LABS: URINE HCG NEGATIVE (NEG)
[2020-07-07 18:45] LABS: CLARITY,URINE SLIGHTLY CLOUDY (Clear); COLOR,URINE YELLOW (Yellow); GLUCOSE, URINE 500 mg/dl (Neg); KETONES,URINE 15 mg/dl (Neg); LEUKOCYTE ESTERASE ,URINE NEGATIVE (Neg); NITRITES, URINE NEGATIVE (Neg); OCCULT BLOOD,URINE TRACE-INTACT (Neg); PH,URINE 5.5 (4.8-8.0); PROTEIN,URINE 100 mg/dl (Neg); UA COLLECTION TYPE VOIDED
[2020-07-07] MEDS ORDERED: normal saline 1000ML IV soln IVB ONE (18:50)
[2020-07-07 18:51] LABS: BACTERIA,URINE NONE SEEN /HPF (Neg); RBC,URINE 0-2 /HPF (0-2); WBC,URINE 0-4 /HPF (0-4)
[2020-07-07 18:52] LABS: HYALINE CASTS 0-3 /LPF (NEGATIVE); SQUAMOUS EPITHELIAL CELL,UR MODERATE /LPF (FEW)
[2020-07-07] MEDS ORDERED: DOXYCYCLINE 100MG CAPSULE PO STA (19:48)
[2020-07-07] MEDS ORDERED: pantoprazole 40mg Tablet.DR PO STA (19:48)
[2020-07-07] MEDS ORDERED: DOXY100C76 PO (20:01)
[2020-07-07] MEDS ORDERED: morphine 4 MG/ML inj SYRINge IV ONE (20:25)
--- NOTE | 2020-07-07 20:40 | NUR ---
pt is soundly asleep, had to be shaken awake
== END 2020-07-07 21:10 | disposition home or self-care (01) ==
LOC: ER 15:44
DX: L03.311 Cellulitis of abdominal wall (principal); L02.211 Cutaneous abscess of abdominal wall; I48.91 Unspecified atrial fibrillation; I50.9 Heart failure, unspecified; E78.00 Pure hypercholesterolemia, unspecified; J45.909 Unspecified asthma, uncomplicated; K21.9 Gastro-esophageal reflux disease without esophagitis; E10.9 Type 1 diabetes mellitus without complications; G89.29 Other chronic pain; F41.9 Anxiety disorder, unspecified; F32.9 Major depressive disorder, single episode, unspecified; Z90.49 Acquired absence of other specified parts of digestive tract; Z90.710 Acquired absence of both cervix and uterus; Z98.890 Other specified postprocedural states; Z56.0 Unemployment, unspecified; Z88.1 Allergy status to other antibiotic agents; Z88.0 Allergy status to penicillin; Z88.2 Allergy status to sulfonamides; Z88.8 Allergy status to other drugs, medicaments and biological substances; Z79.82 Long term (current) use of aspirin; Z79.01 Long term (current) use of anticoagulants; Z79.899 Other long term (current) drug therapy
CPT/HCPCS: 36415; 74176; 80053; 81001; 81025; 82948; 83605; 84145; 85025; 96360; 99284; J7030

== ENCOUNTER 2020-07-18 22:00 | Emergency (ER) | payer MEDICAID ==
[~2020-07-18] VITALS: Ht 170.2 cm; Wt 65.0 kg
[~2020-07-18 22:00] MED LIST changes: +LIDOcaine 1% W/epiNEPHrine 1:200,000 10ml vial ONE
[2020-07-18] MEDS ORDERED: ondansetron/PF 4mg/2ml inj IV ONE (22:40)
[2020-07-18] MEDS ORDERED: normal saline 1000ml 1,000 ML IV ONE ×2 (22:40)
[2020-07-18 23:36] LABS: BASOPHILS % (AUTO) 0.3 % (0-1); EOSINOPHILS # (AUTO) 0.1 X10'3 (0-0.9); EOSINOPHILS % (AUTO) 0.5 % (0-6); HEMATOCRIT 42.9 % (35.0-45.0); LYMPHOCYTES # (AUTO) 1.5 X10'3 (1.1-4.8); LYMPHOCYTES % (AUTO) 8.5 % (21-51); MEAN CORPUSCULAR HEMOGLOBIN 28.2 PG (27.0-31.0); MEAN CORPUSCULAR HGB CONC 32.7 g/dL (33.0-36.5); MEAN CORPUSCULAR VOLUME 86.3 FL (78-98); MEAN PLATELET VOLUME 9.3 FL (7.4-10.4); NEUTROPHILS # (AUTO) 14.7 X10'3 (1.8-7.7); NEUTROPHILS % (AUTO) 84.7 % (42-75); PLATELET COUNT 255 X10'3 (140-440); RED BLOOD COUNT 4.97 X10'6 (4.20-5.60); WHITE BLOOD COUNT 17.3 X10'3 (4.5-11.0)
[2020-07-18 23:43] LABS: ALANINE AMINOTRANSFERASE 21 U/L (12-78); ALBUMIN 2.9 G/DL (3.4-5.0); ALBUMIN/GLOBULIN RATIO 0.6 (1.1-1.5); ALKALINE PHOSPHATASE 120 IU/L (46-116); ANION GAP 11 (8-16); ASPARTATE AMINO TRANSFERASE 13 U/L (10-37); BILIRUBIN,TOTAL 0.8 MG/DL (0.1-1.0); BLOOD UREA NITROGEN 19 MG/DL (7-18); CALCIUM 9.4 MG/DL (8.5-10.1); CHLORIDE 94 MMOL/L (99-107); CREATININE 0.95 MG/DL (0.40-0.90); GLUCOSE 304 MG/DL (70-104); LIPASE < 50 U/L (73-393); SODIUM 132 MMOL/L (135-145); TOTAL CARBON DIOXIDE 26.9 MMOL/L (24-32); TOTAL PROTEIN 7.6 G/DL (6.4-8.2); eGFR 62 ML/MIN
[2020-07-19] MEDS ORDERED: metoclopramide 5 mg/ml inj IV ONE (00:15)
[2020-07-19] MEDS ORDERED: diphenhydrAMINE 25mg capsule PO ONE (00:15)
[2020-07-19] MEDS ORDERED: diphenhydrAMINE 50 mg/ml inj IV STA (00:26)
[2020-07-19 00:32] LABS: URINE HCG NEGATIVE (NEG)
--- NOTE | 2020-07-19 00:44 | NUR ---
Dr. Xie at bedside for evaluation of patient. US at bedside as requested.
--- NOTE | 2020-07-19 00:45 | NUR ---
Pt continues to c/o abdominal pain and nausea. ANDREW Greco notified and patient medicated for nasuea as ordered.
[2020-07-19] MEDS ORDERED: linezolid 600mg/300ml PREMIX 300 ML IV ONE (00:50)
[2020-07-19] MEDS ORDERED: insulin regular, human 10 units/0.1 ml syringe IV ONE (00:50)
[2020-07-19] MEDS ORDERED: morphine 4 MG/ML inj SYRINge IV ONE (00:50)
[2020-07-19 01:03] LABS: CLARITY,URINE SLIGHTLY CLOUDY (Clear); COLOR,URINE AMBER (Yellow); GLUCOSE, URINE >=1000 mg/dl (Neg); KETONES,URINE >=80 mg/dl (Neg); LEUKOCYTE ESTERASE ,URINE NEGATIVE (Neg); NITRITES, URINE NEGATIVE (Neg); OCCULT BLOOD,URINE NEGATIVE (Neg); PH,URINE 5.5 (4.8-8.0); PROTEIN,URINE TRACE mg/dl (Neg); UROBILINOGEN,URINE 0.2 E.U/dL (0.2-1.0)
[2020-07-19 01:08] LABS: UA COLLECTION TYPE CLN CATCH MIDSTREAM
[2020-07-19 01:09] LABS: MUCUS STRANDS MANY /LPF (Neg); SQUAMOUS EPITHELIAL CELL,UR FEW /LPF (FEW)
[2020-07-19 01:11] LABS: BACTERIA,URINE FEW /HPF (Neg); RBC,URINE 0-2 /HPF (0-2); WBC,URINE 0-4 /HPF (0-4)
[2020-07-19] MEDS ORDERED: LINE600T11 PO (01:46)
[2020-07-19 02:47] VITALS: BP 90/53
== END 2020-07-19 03:54 | disposition home or self-care (01) ==
LOC: ER 22:01
DX: L03.311 Cellulitis of abdominal wall (principal); R11.2 Nausea with vomiting, unspecified; R53.83 Other fatigue; R53.1 Weakness; R11.0 Nausea; I48.91 Unspecified atrial fibrillation; I50.9 Heart failure, unspecified; E78.00 Pure hypercholesterolemia, unspecified; J45.909 Unspecified asthma, uncomplicated; K21.9 Gastro-esophageal reflux disease without esophagitis; E11.9 Type 2 diabetes mellitus without complications; G89.29 Other chronic pain; F41.9 Anxiety disorder, unspecified; F32.9 Major depressive disorder, single episode, unspecified; Z85.41 Personal history of malignant neoplasm of cervix uteri; Z90.49 Acquired absence of other specified parts of digestive tract; Z90.710 Acquired absence of both cervix and uterus; Z98.890 Other specified postprocedural states; Z56.0 Unemployment, unspecified; Z88.1 Allergy status to other antibiotic agents; Z88.8 Allergy status to other drugs, medicaments and biological substances; Z79.82 Long term (current) use of aspirin; Z79.4 Long term (current) use of insulin; Z79.2 Long term (current) use of antibiotics; Z79.899 Other long term (current) drug therapy
CPT/HCPCS: 36415; 80053; 81001; 81025; 82009; 82948; 83690; 85025; 93005; 96361; 96365; 96366; 96375; 99284; J1200; J1815; J2020; J2270; J2405; J2765; J7030

== ENCOUNTER 2020-07-21 13:50 | Inpatient (IN) | payer MEDICAID ==
[~2020-07-21] VITALS: Ht 170.2 cm; Wt 65.0 kg
[~2020-07-21 13:50] MED LIST changes: -LIDOcaine 1% W/epiNEPHrine 1:200,000 10ml vial ONE; +LINE600T11 PO
[2020-07-21 18:28] LABS: BASOPHILS # (AUTO) 0.1 X10'3 (0-0.2); BASOPHILS % (AUTO) 0.8 % (0-1); EOSINOPHILS % (AUTO) 0.1 % (0-6); LYMPHOCYTES # (AUTO) 0.7 X10'3 (1.1-4.8); LYMPHOCYTES % (AUTO) 5.7 % (21-51); MONOCYTES # (AUTO) 0.6 X10'3 (0-0.9); MONOCYTES % (AUTO) 4.8 % (2-12); NEUTROPHILS % (AUTO) 88.6 % (42-75)
[2020-07-21] MEDS ORDERED: normal saline 1000ML IV soln IVB ONE (18:30)
[2020-07-21] MEDS ORDERED: proCHLORperazine 10 MG/2 ml inj IV ONE (18:45)
[2020-07-21 18:50] LABS: ALANINE AMINOTRANSFERASE 17 U/L (12-78); ALBUMIN 3.3 G/DL (3.4-5.0); ALBUMIN/GLOBULIN RATIO 0.7 (1.1-1.5); ALKALINE PHOSPHATASE 133 IU/L (46-116); ANION GAP 29 (8-16); ASPARTATE AMINO TRANSFERASE 9 U/L (10-37); BILIRUBIN,TOTAL 0.4 MG/DL (0.1-1.0); BLOOD UREA NITROGEN 19 MG/DL (7-18); BUN/CREATININE RATIO 12.4 (6.6-38.0); CALCIUM 9.6 MG/DL (8.5-10.1); CHLORIDE 95 MMOL/L (99-107); CREATININE 1.53 MG/DL (0.40-0.90); POTASSIUM 5.5 MMOL/L (3.5-5.1); SODIUM 133 MMOL/L (135-145); TOTAL PROTEIN 8.3 G/DL (6.4-8.2); eGFR 36 ML/MIN
[2020-07-21 18:57] LABS: GLUCOSE 553 MG/DL (70-104)
[2020-07-21 18:58] LABS: TOTAL CARBON DIOXIDE 9.1 MMOL/L (24-32)
[2020-07-21] MEDS ORDERED: insulin regular, human 10 units/0.1 ml syringe IV ONE (19:00)
[2020-07-21 19:11] LABS: RED BLOOD COUNT 5.25 X10'6 (4.20-5.60); WHITE BLOOD COUNT 12.6 X10'3 (4.5-11.0)
[2020-07-21 19:12] LABS: HEMATOCRIT 44.9 % (35.0-45.0); HEMOGLOBIN 15.3 g/dl (12.0-16.0); MEAN CORPUSCULAR HEMOGLOBIN 29.2 PG (27.0-31.0); MEAN CORPUSCULAR HGB CONC 34.1 g/dL (33.0-36.5); MEAN CORPUSCULAR VOLUME 85.5 FL (78-98); MEAN PLATELET VOLUME 9.3 FL (7.4-10.4); PLATELET COUNT 352 X10'3 (140-440); RED CELL DISTRIBUTION WIDTH 13.9 % (11.5-14.5)
[2020-07-21 19:13] LABS: NEUTROPHILS # (AUTO) 11.2 X10'3 (1.8-7.7)
[2020-07-21 19:45] LABS: ABG BASE EXCESS -23.7 mmol/L (-2.0-2.0); ABG OXYGEN SATURATION 97.6 % (94-97); ABG PO2 (T) 122.6 mmHg (75.0-100.0); FCOHb 0.1 % (0.0-3.9); FMetHb 0.3 % (0.0-1.5); FO2Hb 97.2 % (94-97); PATIENT TEMPERATURE 37.6; TOTAL HEMOGLOBIN 13.9 G/dl (12.0-16.0)
[2020-07-21] MEDS ORDERED: potassium CL 20mEq in D5-1/2NS 1,000 ML IV PRN (19:55)
[2020-07-21] MEDS ORDERED: Insulin Reg/NS 100units/100mL 100 ML IV SCH (19:55)
[2020-07-21] MEDS ORDERED: magnesium hydroxide 30ml (MOM) UD suspension PO PRN (20:15)
[2020-07-21] MEDS ORDERED: diphenhydrAMINE 50 mg/ml inj IV PRN (20:15)
[2020-07-21] MEDS ORDERED: potassium CL 10mEq/100ml bag 100 ML IV PRN ×4 (20:15)
[2020-07-21] MEDS ORDERED: magnesium 2GM in 50ml NS 50 ML IV PRN (20:15)
[2020-07-21] MEDS ORDERED: acetaminophen 325mg tablet PO PRN ×2 (20:15)
[2020-07-21] MEDS ORDERED: magnesium 4gm in 100ml NS 100 ML IV PRN (20:15)
[2020-07-21] MEDS ORDERED: sodium phosphate inj. 30 MMOL in dextrose 5%-water 250 ML IV PRN (20:15)
[2020-07-21] MEDS ORDERED: HYDROcodone/acetaminophen 5mg/325mg tablet PO PRN (20:15)
[2020-07-21] MEDS ORDERED: metoclopramide 5 mg/ml inj IV PRN (20:15)
[2020-07-21] MEDS ORDERED: potassium Cl 20 mEq SR tablet PO PRN ×4 (20:15)
[2020-07-21] MEDS ORDERED: sodium bicarbonate (8.4%) inj. 100 MEQ in dextrose 5% water 500ml 500 ML IV PRN (20:15)
[2020-07-21] MEDS ORDERED: insulin regular, human U-100 3ml vial - multi-dose IV PRN (20:15)
[2020-07-21] MEDS ORDERED: bisacodyl 10mg suppository rectal RC PRN (20:15)
[2020-07-21] MEDS ORDERED: diphenhydrAMINE 25mg capsule PO PRN (20:15)
[2020-07-21] MEDS ORDERED: sodium phosphate inj. 15 MMOL in dextrose 5%-water 250 ML IV PRN (20:15)
[2020-07-21] MEDS ORDERED: magnesium Cl slow-release 64mg tablet PO PRN (20:15)
[2020-07-21] MEDS ORDERED: mag hydrox/Alum hydrox/simeth 30ml oral suspension PO PRN (20:15)
[2020-07-21] MEDS ORDERED: ondansetron/PF 4mg/2ml inj IV PRN (20:15)
[2020-07-21] MEDS: normal saline 1000ml 1,000 ML IV SCH ×3 (20:15→23:55)
[2020-07-21] MEDS ORDERED: sodium bicarbonate (8.4%) inj. 50 MEQ in dextrose 5% water 500ml 250 ML IV PRN (20:15)
[2020-07-21] MEDS ORDERED: vancomycin/NS 1 GM ADD-VANTAGE 250 ML IV ONE (20:20)
[2020-07-21 20:44] LABS: CLARITY,URINE CLEAR (Clear); COLOR,URINE YELLOW (Yellow); GLUCOSE, URINE >=1000 mg/dl (Neg); KETONES,URINE >=80 mg/dl (Neg); LEUKOCYTE ESTERASE ,URINE NEGATIVE (Neg); NITRITES, URINE NEGATIVE (Neg); OCCULT BLOOD,URINE SMALL (Neg); PROTEIN,URINE TRACE mg/dl (Neg); UROBILINOGEN,URINE 0.2 E.U/dL (0.2-1.0)
[2020-07-21 20:49] LABS: URINE AMPHETAMINE SCREEN NEGATIVE (Neg); URINE BARBITUATE SCREEN NEGATIVE (Neg); URINE BENZODIAZEPINES SCREEN NEGATIVE (Neg); URINE CANNABINOID SCREEN NEGATIVE (Neg); URINE COCAINE SCREEN NEGATIVE (Neg); URINE METHADONE SCREEN NEGATIVE (Neg); URINE OPIATE SCREEN POSITIVE (Neg); URINE PHENCYCLIDINE SCREEN NEGATIVE (Neg)
[2020-07-21] MEDS ORDERED: vancomycin/NS 1 GM ADD-VANTAGE 250 ML IV SCH (21:00)
[2020-07-21] MEDS ORDERED: temazepam 15mg capsule PO PRN (21:00)
[2020-07-21 21:01] LABS: UA COLLECTION TYPE STRAIGHT CATH
[2020-07-21 21:03] LABS: BACTERIA,URINE FEW /HPF (Neg); RBC,URINE NONE SEEN /HPF (0-2); SQUAMOUS EPITHELIAL CELL,UR FEW /LPF (FEW); WBC,URINE 0-4 /HPF (0-4)
--- NOTE | 2020-07-21 21:03 | NUR ---
PT COMPLAINING OF BACK PAIN THAT IS BURNING. PA CORNELIA AWARE AND STATES HE WILL ORDER TORADOL FOR HER.
[2020-07-21] MEDS ORDERED: ketorolac tromethamine 15mg/ml inj. IM ONE (21:05)
--- NOTE | 2020-07-21 21:56 | NUR ---
Patient in room ED 13. I have received report from Albina AGUIRRE in the ER and had the opportunity to ask questions and awaiting arrival of patient to the PCU unit.
--- NOTE | 2020-07-21 22:10 | NUR ---
Pt to ct. Pt has insulin pupm still infusing. She turned it off per my request as she is on the dka protocol IPA 3011, report to [facility] PCU. Pt just given toradol and norco tablet 10/325 for 10 out of 10 pain reported to back and abdomen. Pt with redness and suspected infection to the insul pupmp administration site to right lower abdomen. HR 100 st, otherwise vss. remains on insulin gtt at 5 u hr. accucheck at 2200 = 310. Pt to be taken to floor once returnes from CT.
[2020-07-21] MEDS: HYDROcodone/acetaminophen 10/325mg tab PO PRN (22:17)
--- NOTE | 2020-07-21 22:23 | NUR ---
Lab just drawn for bmp. Pt taken to the floor.
[2020-07-21 22:24] LABS: ALBUMIN 2.8 G/DL (3.4-5.0); ANION GAP 26 (8-16); BLOOD UREA NITROGEN 18 MG/DL (7-18); BUN/CREATININE RATIO 13.8 (6.6-38.0); CALCIUM 8.8 MG/DL (8.5-10.1); CHLORIDE 102 MMOL/L (99-107); GLUCOSE 321 MG/DL (70-104); POTASSIUM 4.3 MMOL/L (3.5-5.1); SODIUM 137 MMOL/L (135-145); eGFR 43 ML/MIN
--- NOTE | 2020-07-21 22:25 | NUR ---
Patient arrived to the PCU unit at this time from the ER. She is alert and oriented but very lethargic. Vitals are stable. She is on room air. She is on the insulin gtt at 5 units/hr and NS at 250mls hr. She is placed on tele. All safety precautions in place. Call light in reach. Will continue to monitor.
[2020-07-21 22:28] LABS: TOTAL CARBON DIOXIDE 9.4 MMOL/L (24-32)
[2020-07-21 22:30] VITALS: BP 107/59
[2020-07-21] MEDS: potassium CL 20mEq in D5-1/2NS 1,000 ML IV PRN (23:22)
[2020-07-22] VITALS (13 sets, daily range): BP systolic 84–106; BP diastolic 47–71
[2020-07-22] MEDS: normal saline 1000ml 1,000 ML IV SCH ×9 (00:15→19:37)
[2020-07-22 01:12] LABS: TROPONIN I < 0.04 NG/ML (0.0-0.05)
[2020-07-22 02:45] LABS: ALBUMIN 2.5 G/DL (3.4-5.0); ANION GAP 14 (8-16); BLOOD UREA NITROGEN 16 MG/DL (7-18); BUN/CREATININE RATIO 13.9 (6.6-38.0); CALCIUM 8.6 MG/DL (8.5-10.1); CHLORIDE 104 MMOL/L (99-107); CREATININE 1.15 MG/DL (0.40-0.90); GLUCOSE 205 MG/DL (70-104); PHOSPHORUS 2.4 MG/DL (2.3-4.5); POTASSIUM 4.3 MMOL/L (3.5-5.1); SODIUM 136 MMOL/L (135-145); eGFR 50 ML/MIN
[2020-07-22] MEDS: HYDROcodone/acetaminophen 10/325mg tab PO PRN ×3 (02:45→19:46)
[2020-07-22] MEDS: potassium CL 20mEq in D5-1/2NS 1,000 ML IV PRN ×4 (04:29→13:41)
[2020-07-22] MEDS ORDERED: Insulin Reg/NS 100units/100mL 100 ML IV SCH (06:00)
--- NOTE | 2020-07-22 06:02 | NUR ---
PAGER ID: [phone] MESSAGE: Patient Juana Ferrari Rm [phone] Patient with DKA blood sugar is now 107 and is maxed out of the D5 1/2NS at 250mls/hr. Do you want to switch to D10 or decrease the insulin? The insulin is currently going at 5units/hr. Rae AGUIRRE ext. [phone]
--- NOTE | 2020-07-22 06:15 | NUR ---
Problems reprioritized. Patient report given, questions answered & plan of care reviewed with Tonya AGUIRRE.
[2020-07-22 06:37] LABS: ALBUMIN 2.6 G/DL (3.4-5.0); ANION GAP 9 (8-16); BLOOD UREA NITROGEN 14 MG/DL (7-18); BUN/CREATININE RATIO 13.7 (6.6-38.0); CALCIUM 8.4 MG/DL (8.5-10.1); CHLORIDE 110 MMOL/L (99-107); CREATININE 1.02 MG/DL (0.40-0.90); GLUCOSE 101 MG/DL (70-104); MAGNESIUM 1.6 MG/DL (1.5-2.4); POTASSIUM 4.2 MMOL/L (3.5-5.1); SODIUM 140 MMOL/L (135-145); TOTAL CARBON DIOXIDE 20.6 MMOL/L (24-32); eGFR 57 ML/MIN
--- NOTE | 2020-07-22 07:02 | NUR ---
Patient in room PCU 3011. I have received report from Rae AGUIRRE and had the opportunity to ask questions and assume patient care.
--- NOTE | 2020-07-22 07:32 | NUR ---
PAGER ID: [phone] MESSAGE: [phone] Juana Ferrari, DKA - Blood sugar is 94 and dropping, can we decrease insulin gtt to 1 unit/hr. Tonya AGUIRRE [phone]
--- NOTE | 2020-07-22 07:53 | NUR ---
Blood sugar trends reviewed with MD, received new orders to decrease insulin gtt to 1 unit/hr. BP trends reviewed with MD as well. Pt. is likely dry. Map is greater than 60 and patient is asymptomatic. MD okayed to give PO norco and phos-Mal for phos level of 2.0 orally. IV's are patent.
[2020-07-22] MEDS: Neutra Phos packet PO PRN ×3 (07:55→21:51)
[2020-07-22] MEDS ORDERED: K and/or MAG REPLACEMENT MC SCH (08:00)
[2020-07-22] MEDS: K and/or MAG REPLACEMENT MC SCH ×2 (08:54→20:00)
[2020-07-22] MEDS: vancomycin/NS 1 GM ADD-VANTAGE 250 ML IV SCH ×2 (10:07→22:43)
[2020-07-22] MEDS: Insulin Reg/NS 100units/100mL 100 ML IV SCH (10:09)
[2020-07-22 10:24] LABS: BASOPHILS % (AUTO) 0.4 % (0-1); EOSINOPHILS # (AUTO) 0.1 X10'3 (0-0.9); EOSINOPHILS % (AUTO) 1.4 % (0-6); HEMATOCRIT 31.9 % (35.0-45.0); HEMOGLOBIN 10.8 g/dl (12.0-16.0); LYMPHOCYTES % (AUTO) 26.9 % (21-51); MEAN CORPUSCULAR HGB CONC 33.8 g/dL (33.0-36.5); MEAN CORPUSCULAR VOLUME 85.7 FL (78-98); MEAN PLATELET VOLUME 8.8 FL (7.4-10.4); MONOCYTES # (AUTO) 0.6 X10'3 (0-0.9); MONOCYTES % (AUTO) 7.8 % (2-12); NEUTROPHILS # (AUTO) 4.6 X10'3 (1.8-7.7); NEUTROPHILS % (AUTO) 63.5 % (42-75); PLATELET COUNT 251 X10'3 (140-440); RED BLOOD COUNT 3.73 X10'6 (4.20-5.60); RED CELL DISTRIBUTION WIDTH 14.6 % (11.5-14.5); WHITE BLOOD COUNT 7.3 X10'3 (4.5-11.0)
--- NOTE | 2020-07-22 10:40 | NUR ---
MD notified of BP trends and MAP. MD stated since the patient is asymptomatic, just continue to monitor. Pt. states, BP runs low often. MD gave verbal orders that if her BP continues to trend down then give 1 liter bolus X1 of NS and then continue her D51/2 NS with 20 of potassium for the day. Pt. may eat if her blood sugars stay between 150-200 and her labs are corrected. Will continue to monitor BP.
[2020-07-22 10:54] LABS: ALANINE AMINOTRANSFERASE 13 U/L (12-78); ALBUMIN 2.3 G/DL (3.4-5.0); ALBUMIN/GLOBULIN RATIO 0.7 (1.1-1.5); ALKALINE PHOSPHATASE 82 IU/L (46-116); ANION GAP 8 (8-16); ASPARTATE AMINO TRANSFERASE 8 U/L (10-37); BILIRUBIN,TOTAL 0.3 MG/DL (0.1-1.0); BLOOD UREA NITROGEN 12 MG/DL (7-18); BUN/CREATININE RATIO 14.5 (6.6-38.0); CHLORIDE 106 MMOL/L (99-107); CREATININE 0.83 MG/DL (0.40-0.90); GLUCOSE 139 MG/DL (70-104); POTASSIUM 4.5 MMOL/L (3.5-5.1); SODIUM 135 MMOL/L (135-145); TOTAL CARBON DIOXIDE 20.9 MMOL/L (24-32); TOTAL PROTEIN 5.8 G/DL (6.4-8.2); eGFR 72 ML/MIN
[2020-07-22] MEDS ORDERED: ondansetron 4mg rapidly disintigrating tab PO PRN (11:15)
[2020-07-22] MEDS ORDERED: non-formulary drug (Alendronate Sodium 1 TABLET) PO SCH (11:15)
--- NOTE | 2020-07-22 12:00 | NUR ---
Patients blood sugar is within goal between 150-200. Labs are corrected. Map is greater than 60 and pt. offers no complaints. Denies nausea or any symptoms r/t lower blood pressure. Pt. has been ordered a meal. Will continue to monitor BS, BP and patient status closely.
[2020-07-22] MEDS ORDERED: dextrose 50%-water 50ml dispensing syringe IV PRN ×2 (12:20)
[2020-07-22] MEDS ORDERED: MESSAGE TO PHARMACY PO ONE (12:20)
[2020-07-22] MEDS ORDERED: glucagon, human recombinant 1mg kit SUBCUT PRN (12:20)
[2020-07-22] MEDS ORDERED: dextrose ORAL solution 15 GM/59 ML bottle PO PRN ×2 (12:20)
[2020-07-22 12:38] LABS: HEMOGLOBIN A1C 10.7 % (4.5-6.2)
[2020-07-22] MEDS: insulin Lispro (HumaLOG) vial - multi-dose SQ SCH ×3 (12:53→22:51)
[2020-07-22] MEDS: pregabalin 25mg capsule PO SCH ×2 (12:54→21:51)
--- NOTE | 2020-07-22 14:50 | NUR ---
Initial: Pt admit with DKA with cellulitis to anterior abdominal wall. Patient's A1c is 10.7%, down from 11.5% in March of this year per records, however pt with multiple past admits with fluctuating A1c. Pt seen at bedside for written and verbal DM education. Pt states she sees and MD when she needs med refills and to get her feet checked. Pt reports having a CGM that she acquired 3-4 months ago however states she hasn't had the sensor for it since Tuesday. Pt states she has been checking her BG levels q hour with a glucometer in the mean time, recently seeing results of 342-290, however believes it's r/t recent infection. Pt states she is planning on moving the location of her insulin pump as it is near cellulitis. Pt reports she previously was seeing a CDE for diabetes education courses and felt she was becoming successful however that class is no longer available. RD encouraged pt to reach out to RD team for questions if needed. Patient denies questions at this time. Pt currently on a CHO controlled diet documented with 100% PO intake first meal. 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 Pt agrees to double protein TID for satiety, d/w dietary. Per dietary pt receiving chopped meat. Pt denies food allergies, difficulty chewing/swallowing, or constipation/diarrhea. LBM 07/19, receiving routine bowel care. Will continue to follow. Recommendations: 1) Continue CHO controlled diet 2) Double eggs q breakfast, double meat BIDLD; chop meat TID 3) Routine bowel care 4) Scaled weights per rx Addendum: 07/22/20 at [address] Amended: Links added.
[2020-07-22] MEDS ORDERED: normal saline 1000ml 1,000 ML IVB ONE (17:05)
--- NOTE | 2020-07-22 17:53 | NUR ---
Patients blood pressure is 106/71, patient is eating dinner. Offers no complaints. Labs have been corrected and her recent blood sugar was 206. Patient is out of DKA and accu checks will be AC/HS from here out. Will report to NOC shift.
--- NOTE | 2020-07-22 18:38 | NUR ---
Problems reprioritized. Patient report given, questions answered & plan of care reviewed with Rae AGUIRRE and Pilo AGUIRRE.
--- NOTE | 2020-07-22 19:02 | NUR ---
Patient in room PCU 3011. I have received report from Tonya AGUIRRE and had the opportunity to ask questions and assume patient care.
[2020-07-22] MEDS ORDERED: enoxaparin 40mg/0.4ml syringe SQ SCH (20:00)
[2020-07-22] MEDS: budesonide 0.5mg/2ml UD nebule IH SCH (20:38)
[2020-07-22] MEDS: calcium carbonate/vitamin D3 tablet PO SCH (21:52)
[2020-07-22] MEDS: atorvastatin 10mg tablet PO SCH (21:53)
[2020-07-22] MEDS: lactobacillus rhamnosus 10,000 MMU CELLS/CAPSULE PO SCH (21:53)
[2020-07-22] MEDS: apixaban 5mg tablet PO SCH (21:54)
[2020-07-22] MEDS: insulin glargine (Lantus) pen - multi-dose SQ SCH (22:55)
[2020-07-23 02:00] VITALS: BP 95/50
[2020-07-23] MEDS: HYDROcodone/acetaminophen 10/325mg tab PO PRN ×4 (03:51→21:05)
[2020-07-23] MEDS: normal saline 1000ml 1,000 ML IV SCH ×3 (05:40→17:54)
--- NOTE | 2020-07-23 06:20 | NUR ---
Problems reprioritized. Patient report given, questions answered & plan of care reviewed with Tonya AGUIRRE.
--- NOTE | 2020-07-23 06:36 | NUR ---
Orientee documentation: I have reviewed and agree with all interventions, assessments performed and documented by Pilo AGUIRRE. Orientee Medication Administration: For this medication-pass time frame, all medication were reviewed, dispensed, administered and documented per hospital policy by Pilo AGUIRRE.
--- NOTE | 2020-07-23 06:51 | NUR ---
Patient in room PCU 3011. I have received report from Rae AGUIRRE and Pilo AGUIRRE and had the opportunity to ask questions and assume patient care.
[2020-07-23 07:00] VITALS: BP 89/57
--- NOTE | 2020-07-23 07:29 | NUR ---
Patient in room PCU 3011. I have received report from CARLA Mcbride and had the opportunity to ask questions and assume patient care. Patient awake and alert during report.
[2020-07-23] MEDS: pantoprazole 40mg Tablet.DR PO SCH (07:30)
[2020-07-23] MEDS: K and/or MAG REPLACEMENT MC SCH ×2 (08:00→20:00)
[2020-07-23] MEDS ORDERED: VANCOMYCIN LEVEL IV ONE (08:30)
[2020-07-23] MEDS: budesonide 0.5mg/2ml UD nebule IH SCH ×2 (08:38→19:57)
[2020-07-23] MEDS: amitriptyline 10mg tablet PO SCH (09:05)
[2020-07-23] MEDS: duloxetine 30mg CAPSULE.DR PO SCH (09:05)
[2020-07-23] MEDS: docusate sod 100mg capsule PO SCH (09:05)
[2020-07-23] MEDS: lactobacillus rhamnosus 10,000 MMU CELLS/CAPSULE PO SCH ×2 (09:05→21:04)
[2020-07-23] MEDS: apixaban 5mg tablet PO SCH ×2 (09:05→21:04)
[2020-07-23 09:06] LABS: BASOPHILS % (AUTO) 0.6 % (0-1); EOSINOPHILS # (AUTO) 0.1 X10'3 (0-0.9); EOSINOPHILS % (AUTO) 1.9 % (0-6); HEMATOCRIT 33.7 % (35.0-45.0); HEMOGLOBIN 11.1 g/dl (12.0-16.0); LYMPHOCYTES # (AUTO) 1.9 X10'3 (1.1-4.8); LYMPHOCYTES % (AUTO) 32.6 % (21-51); MEAN CORPUSCULAR HEMOGLOBIN 28.2 PG (27.0-31.0); MEAN CORPUSCULAR VOLUME 85.2 FL (78-98); MEAN PLATELET VOLUME 9.1 FL (7.4-10.4); MONOCYTES # (AUTO) 0.4 X10'3 (0-0.9); MONOCYTES % (AUTO) 7.1 % (2-12); NEUTROPHILS # (AUTO) 3.3 X10'3 (1.8-7.7); NEUTROPHILS % (AUTO) 57.8 % (42-75); PLATELET COUNT 211 X10'3 (140-440); RED BLOOD COUNT 3.95 X10'6 (4.20-5.60); RED CELL DISTRIBUTION WIDTH 14.4 % (11.5-14.5); WHITE BLOOD COUNT 5.7 X10'3 (4.5-11.0)
[2020-07-23] MEDS: aspirin 81mg tablet.DR PO SCH (09:06)
[2020-07-23] MEDS: calcium carbonate/vitamin D3 tablet PO SCH ×2 (09:06→21:04)
[2020-07-23] MEDS: pregabalin 25mg capsule PO SCH ×3 (09:07→21:04)
[2020-07-23] MEDS: insulin Lispro (HumaLOG) vial - multi-dose SQ SCH ×3 (09:09→21:08)
[2020-07-23 09:23] LABS: ALANINE AMINOTRANSFERASE 18 U/L (12-78); ALBUMIN 2.3 G/DL (3.4-5.0); ALBUMIN/GLOBULIN RATIO 0.7 (1.1-1.5); ALKALINE PHOSPHATASE 84 IU/L (46-116); ANION GAP 6 (8-16); ASPARTATE AMINO TRANSFERASE 14 U/L (10-37); BILIRUBIN,TOTAL 0.3 MG/DL (0.1-1.0); BLOOD UREA NITROGEN 7 MG/DL (7-18); BUN/CREATININE RATIO 11.9 (6.6-38.0); CALCIUM 8.1 MG/DL (8.5-10.1); CHLORIDE 107 MMOL/L (99-107); CREATININE 0.59 MG/DL (0.40-0.90); GLUCOSE 286 MG/DL (70-104); MAGNESIUM 1.6 MG/DL (1.5-2.4); PHOSPHORUS 2.1 MG/DL (2.3-4.5); POTASSIUM 3.8 MMOL/L (3.5-5.1); SODIUM 138 MMOL/L (135-145); TOTAL CARBON DIOXIDE 25.2 MMOL/L (24-32); TOTAL PROTEIN 5.8 G/DL (6.4-8.2); eGFR > 90 ML/MIN
[2020-07-23] MEDS: vancomycin/NS 1 GM ADD-VANTAGE 250 ML IV SCH (09:53)
[2020-07-23] MEDS: Neutra Phos packet PO PRN ×3 (10:03→17:51)
[2020-07-23 11:02] VITALS: BP 96/59
--- NOTE | 2020-07-23 12:12 | NUR ---
DM consult: Pt already seen at bedside for written and verbal DM education, see below. Initial: Pt admit with DKA with cellulitis to anterior abdominal wall. Patient's A1c is 10.7%, down from 11.5% in March of this year per records, however pt with multiple past admits with fluctuating A1c. Pt seen at bedside for written and verbal DM education. Pt states she sees and MD when she needs med refills and to get her feet checked. Pt reports having a CGM that she acquired 3-4 months ago however states she hasn't had the sensor for it since Tuesday. Pt states she has been checking her BG levels q hour with a glucometer in the mean time, recently seeing results of 342-290, however believes it's r/t recent infection. Pt states she is planning on moving the location of her insulin pump as it is near cellulitis. Pt reports she previously was seeing a CDE for diabetes education courses and felt she was becoming successful however that class is no longer available. RD encouraged pt to reach out to RD team for questions if needed. Patient denies questions at this time. Pt currently on a CHO controlled diet documented with 100% PO intake first meal. 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 Pt agrees to double protein TID for satiety, d/w dietary. Per dietary pt receiving chopped meat. Pt denies food allergies, difficulty chewing/swallowing, or constipation/diarrhea. LBM 07/19, receiving routine bowel care. Will continue to follow. Recommendations: 1) Continue CHO controlled diet 2) Double eggs q breakfast, double meat BIDLD; chop meat TID 3) Routine bowel care 4) Scaled weights per rx Addendum: 07/23/20 at [address] Amended: Links added.
[2020-07-23 15:00] VITALS: BP 131/87
[2020-07-23 18:00] VITALS: BP 132/84
--- NOTE | 2020-07-23 18:40 | NUR ---
Problems reprioritized. Patient report given, questions answered & plan of care reviewed with Luann AGUIRRE.
--- NOTE | 2020-07-23 18:42 | NUR ---
Agree with orientee's documentation (Grace Raines RN)
[2020-07-23] MEDS: VANCOmycin 1250MG/NS 250ml Bag 250 ML IV SCH (21:03)
[2020-07-23] MEDS: atorvastatin 10mg tablet PO SCH (21:04)
[2020-07-23] MEDS: insulin glargine (Lantus) pen - multi-dose SQ SCH (21:07)
[2020-07-24 02:00] VITALS: BP 122/77
[2020-07-24] MEDS: normal saline 1000ml 1,000 ML IV SCH ×3 (03:29→19:28)
[2020-07-24 07:05] LABS: MAGNESIUM 1.6 MG/DL (1.5-2.4)
[2020-07-24 07:24] VITALS: BP 133/85
[2020-07-24 07:41] LABS: PHOSPHORUS 3.2 MG/DL (2.3-4.5)
[2020-07-24] MEDS: K and/or MAG REPLACEMENT MC SCH ×2 (08:00→19:28)
[2020-07-24] MEDS: Insulin Reg/NS 100units/100mL 100 ML IV SCH (08:00)
[2020-07-24] MEDS: aspirin 81mg tablet.DR PO SCH (08:26)
[2020-07-24] MEDS: lactobacillus rhamnosus 10,000 MMU CELLS/CAPSULE PO SCH ×2 (08:26→19:23)
[2020-07-24] MEDS: calcium carbonate/vitamin D3 tablet PO SCH ×2 (08:26→19:22)
[2020-07-24] MEDS: docusate sod 100mg capsule PO SCH (08:27)
[2020-07-24] MEDS: amitriptyline 10mg tablet PO SCH (08:27)
[2020-07-24] MEDS: apixaban 5mg tablet PO SCH ×2 (08:27→19:22)
[2020-07-24] MEDS: duloxetine 30mg CAPSULE.DR PO SCH (08:28)
[2020-07-24] MEDS: pantoprazole 40mg Tablet.DR PO SCH (08:28)
[2020-07-24] MEDS: pregabalin 25mg capsule PO SCH ×2 (08:28→13:22)
[2020-07-24] MEDS: VANCOmycin 1250MG/NS 250ml Bag 250 ML IV SCH (08:29)
[2020-07-24] MEDS: HYDROcodone/acetaminophen 10/325mg tab PO PRN (08:31)
[2020-07-24] MEDS: insulin Lispro (HumaLOG) vial - multi-dose SQ SCH ×2 (08:34→13:27)
[2020-07-24 09:31] LABS: BASOPHILS # (AUTO) 0.1 X10'3 (0-0.2); EOSINOPHILS # (AUTO) 0.1 X10'3 (0-0.9); EOSINOPHILS % (AUTO) 2.2 % (0-6); HEMOGLOBIN 10.8 g/dl (12.0-16.0); LYMPHOCYTES # (AUTO) 1.1 X10'3 (1.1-4.8); LYMPHOCYTES % (AUTO) 18.6 % (21-51); MEAN CORPUSCULAR HEMOGLOBIN 28.5 PG (27.0-31.0); MEAN CORPUSCULAR HGB CONC 33.6 g/dL (33.0-36.5); MEAN CORPUSCULAR VOLUME 84.7 FL (78-98); MEAN PLATELET VOLUME 8.4 FL (7.4-10.4); MONOCYTES # (AUTO) 0.4 X10'3 (0-0.9); MONOCYTES % (AUTO) 7.2 % (2-12); PLATELET COUNT 192 X10'3 (140-440); RED BLOOD COUNT 3.78 X10'6 (4.20-5.60); RED CELL DISTRIBUTION WIDTH 14.8 % (11.5-14.5); WHITE BLOOD COUNT 5.6 X10'3 (4.5-11.0)
[2020-07-24] MEDS: budesonide 0.5mg/2ml UD nebule IH SCH (09:49)
[2020-07-24 10:54] LABS: ALANINE AMINOTRANSFERASE 56 U/L (12-78); ALBUMIN 2.2 G/DL (3.4-5.0); ALBUMIN/GLOBULIN RATIO 0.7 (1.1-1.5); ALKALINE PHOSPHATASE 100 IU/L (46-116); ANION GAP 5 (8-16); ASPARTATE AMINO TRANSFERASE 95 U/L (10-37); BILIRUBIN,TOTAL 0.4 MG/DL (0.1-1.0); BLOOD UREA NITROGEN 8 MG/DL (7-18); BUN/CREATININE RATIO 14.5 (6.6-38.0); CALCIUM 7.7 MG/DL (8.5-10.1); CHLORIDE 107 MMOL/L (99-107); CREATININE 0.55 MG/DL (0.40-0.90); GLUCOSE 195 MG/DL (70-104); POTASSIUM 3.7 MMOL/L (3.5-5.1); SODIUM 141 MMOL/L (135-145); TOTAL CARBON DIOXIDE 28.7 MMOL/L (24-32); TOTAL PROTEIN 5.5 G/DL (6.4-8.2); eGFR > 90 ML/MIN
[2020-07-24] MEDS ORDERED: DOXY-224 PO (11:14)
[2020-07-24 11:57] VITALS: BP 126/77
--- NOTE | 2020-07-24 15:43 | NUR ---
Reviewed discharge paperwork with pt. 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 Discussed medications discontinued by MD. Pt. aware she needs to f/u with PCP and have good diabetic management. She has supplies at home. Pt. states her transportation does not get off work until 5 pm. Left IV in for now, since pt. is unsure of exact time of departure. Tele removed and returned.
[2020-07-24 15:49] VITALS: BP 113/63
--- NOTE | 2020-07-24 17:52 | NUR ---
Pt. still waiting on transport. States her son is picking her up and is ready to come get her except he needs to drop off a truckload at his home first. Pt. dressed and has belongings and discharge paperwork. Her IV is still in place. Will notify oncoming RN in regards to pending discharge and remaining IV.
--- NOTE | 2020-07-24 18:25 | NUR ---
Gave report to Maris AGUIRRE. She is aware of discharge need - IV.
--- NOTE | 2020-07-24 19:45 | NUR ---
Pt is stable to be discharged per MD. No signs of distress noted. A/o x 4. All belongings are with the pt. IV access discontinued, intact. Pt tolerated the procedure. Pt was in the w/c, and I wheeled her downstairs. Pt was picked up by friend, Tyrone.
[2020-07-25] MEDS ORDERED: VANCOMYCIN LEVEL IV ONE (08:30)
== END 2020-07-24 19:50 | disposition home health service (06) | DRG 720 ==
LOC: ER 13:50 → ED HOLD 20:15 → PCU 3S 22:26
PROVIDERS: ADMIT Family Medicine; ATTEND Family Medicine
DX: A41.9 Sepsis, unspecified organism (principal); E10.10 Type 1 diabetes mellitus with ketoacidosis without coma; E10.649 Type 1 diabetes mellitus with hypoglycemia without coma; E78.00 Pure hypercholesterolemia, unspecified; E78.5 Hyperlipidemia, unspecified; F32.9 Major depressive disorder, single episode, unspecified; F41.9 Anxiety disorder, unspecified; G89.29 Other chronic pain; I11.0 Hypertensive heart disease with heart failure; I95.9 Hypotension, unspecified; I48.0 Paroxysmal atrial fibrillation; I45.6 Pre-excitation syndrome; I50.32 Chronic diastolic (congestive) heart failure; J44.9 Chronic obstructive pulmonary disease, unspecified; Z96.41 Presence of insulin pump (external) (internal); L03.311 Cellulitis of abdominal wall; Z79.01 Long term (current) use of anticoagulants; Z79.4 Long term (current) use of insulin; Z79.51 Long term (current) use of inhaled steroids; Z79.899 Other long term (current) drug therapy; Z85.41 Personal history of malignant neoplasm of cervix uteri; Z86.14 Personal history of Methicillin resistant Staphylococcus aureus infection; Z90.710 Acquired absence of both cervix and uterus; Z91.19 Patient's noncompliance with other medical treatment and regimen; Z88.8 Allergy status to other drugs, medicaments and biological substances; Z88.0 Allergy status to penicillin
CPT/HCPCS: 36415; 36600; 71045; 72131; 72192; 80048; 80053; 80202; 80305; 81001; 82803; 82948; 83036; 83735; 84100; 84484; 85018; 85025; 87070; 87075; 87081; 93005; 94640; 94760; 96365; 99285; G0378; J0780; J1650; J1815; J1885; J2405; J3370; J3480; J7030; J7626

== ENCOUNTER 2020-09-10 18:21 | Emergency (ER) | payer MEDICAID ==
[~2020-09-10] VITALS: Ht 170.2 cm; Wt 65.0 kg
[~2020-09-10 18:21] MED LIST changes: +DOXY-224 PO; -HYDR25TA4 PO; -LEVO750T46 PO; -LINE600T11 PO; -POTA10TA36 PO
[2020-09-10] MEDS ORDERED: normal saline 1000ml 1,000 ML IVB ONE (18:35)
[2020-09-10 19:06] LABS: CLARITY,URINE CLEAR (Clear); COLOR,URINE YELLOW (Yellow); GLUCOSE, URINE >=1000 mg/dl (Neg); KETONES,URINE NEGATIVE (Neg); LEUKOCYTE ESTERASE ,URINE NEGATIVE (Neg); NITRITES, URINE NEGATIVE (Neg); OCCULT BLOOD,URINE NEGATIVE (Neg); PH,URINE 5.5 (4.8-8.0); PROTEIN,URINE NEGATIVE (Neg); UROBILINOGEN,URINE 0.2 E.U/dL (0.2-1.0)
[2020-09-10 19:10] LABS: UA COLLECTION TYPE CLN CATCH MIDSTREAM
[2020-09-10] MEDS ORDERED: normal saline 1000ML IV soln IVB ONE (19:10)
[2020-09-10 19:15] LABS: SQUAMOUS EPITHELIAL CELL,UR MODERATE /LPF (FEW)
[2020-09-10 19:16] LABS: BACTERIA,URINE 1+ /HPF (Neg); RBC,URINE NONE SEEN /HPF (0-2); WBC,URINE 0-4 /HPF (0-4); YEAST FEW /HPF (NEGATIVE)
[2020-09-10 19:23] LABS: ALANINE AMINOTRANSFERASE 29 U/L (12-78); ALBUMIN 3.5 G/DL (3.4-5.0); ALKALINE PHOSPHATASE 96 IU/L (46-116); AMYLASE 50 U/L (25-115); ANION GAP 7 (8-16); ASPARTATE AMINO TRANSFERASE 13 U/L (10-37); BILIRUBIN,TOTAL 0.3 MG/DL (0.1-1.0); BLOOD UREA NITROGEN 16 MG/DL (7-18); BUN/CREATININE RATIO 16.2 (6.6-38.0); CALCIUM 8.6 MG/DL (8.5-10.1); CHLORIDE 101 MMOL/L (99-107); CREATININE 0.99 MG/DL (0.40-0.90); LIPASE 116 U/L (73-393); POTASSIUM 4.5 MMOL/L (3.5-5.1); SODIUM 138 MMOL/L (135-145); TOTAL CARBON DIOXIDE 30.2 MMOL/L (24-32); TOTAL PROTEIN 7.1 G/DL (6.4-8.2); eGFR 59 ML/MIN
[2020-09-10 19:26] LABS: BASOPHILS % (AUTO) 0.7 % (0-1); EOSINOPHILS # (AUTO) 0.2 X10'3 (0-0.9); EOSINOPHILS % (AUTO) 3.5 % (0-6); HEMOGLOBIN 14.9 g/dl (12.0-16.0); LYMPHOCYTES % (AUTO) 31.6 % (21-51); MEAN CORPUSCULAR HEMOGLOBIN 28.9 PG (27.0-31.0); MEAN CORPUSCULAR HGB CONC 33.2 g/dL (33.0-36.5); MEAN CORPUSCULAR VOLUME 87.2 FL (78-98); MEAN PLATELET VOLUME 9.9 FL (7.4-10.4); MONOCYTES # (AUTO) 0.4 X10'3 (0-0.9); MONOCYTES % (AUTO) 5.8 % (2-12); NEUTROPHILS # (AUTO) 3.7 X10'3 (1.8-7.7); NEUTROPHILS % (AUTO) 58.4 % (42-75); PLATELET COUNT 190 X10'3 (140-440); RED BLOOD COUNT 5.16 X10'6 (4.20-5.60); RED CELL DISTRIBUTION WIDTH 15.6 % (11.5-14.5); WHITE BLOOD COUNT 6.4 X10'3 (4.5-11.0)
[2020-09-10 19:27] LABS: GLUCOSE 529 MG/DL (70-104)
[2020-09-10] MEDS ORDERED: potassium Cl 20 mEq SR tablet PO STA (19:32)
[2020-09-10] MEDS ORDERED: insulin regular, human 10 units/0.1 ml syringe SQ ONE (19:35)
[2020-09-10] MEDS ORDERED: insulin regular, human 10 units/0.1 ml syringe IV ONE (19:35)
[2020-09-10 19:47] LABS: TROPONIN I < 0.04 NG/ML (0.0-0.05)
[2020-09-10] MEDS ORDERED: fentaNYL/PF 50MCG/1 ML 2ML syringe IV ONE (20:45)
[2020-09-10] MEDS ORDERED: ondansetron/PF 4mg/2ml inj IV ONE (20:45)
[2020-09-10 21:06] VITALS: BP 126/83
== END 2020-09-10 21:08 | disposition home or self-care (01) ==
LOC: ER 18:21
DX: E10.65 Type 1 diabetes mellitus with hyperglycemia (principal); R10.13 Epigastric pain; R10.31 Right lower quadrant pain; R11.0 Nausea; I48.91 Unspecified atrial fibrillation; I11.0 Hypertensive heart disease with heart failure; I50.9 Heart failure, unspecified; E78.00 Pure hypercholesterolemia, unspecified; J45.909 Unspecified asthma, uncomplicated; K21.9 Gastro-esophageal reflux disease without esophagitis; G89.29 Other chronic pain; Z85.44 Personal history of malignant neoplasm of other female genital organs; Z90.49 Acquired absence of other specified parts of digestive tract; Z90.710 Acquired absence of both cervix and uterus; Z98.890 Other specified postprocedural states; Z56.0 Unemployment, unspecified; Z79.4 Long term (current) use of insulin; Z79.899 Other long term (current) drug therapy; Z88.0 Allergy status to penicillin; Z88.1 Allergy status to other antibiotic agents; Z88.2 Allergy status to sulfonamides; Z88.6 Allergy status to analgesic agent; Z88.8 Allergy status to other drugs, medicaments and biological substances; Z79.82 Long term (current) use of aspirin; Z79.2 Long term (current) use of antibiotics
CPT/HCPCS: 36415; 80053; 81001; 82150; 82948; 83690; 84484; 85025; 93005; 96361; 96372; 96374; 96375; 96376; 99284; J1815; J2405; J3010; J7030

== ENCOUNTER 2020-10-09 09:19 | Inpatient (IN) | payer MEDICAID ==
[~2020-10-09] VITALS: Ht 170.2 cm; Wt 68.2 kg
[2020-10-09] MEDS ORDERED: normal saline 1000ml 1,000 ML IV ONE ×3 (09:30)
[2020-10-09 10:18] LABS: BASOPHILS # (AUTO) 0.1 X10'3 (0-0.2); BASOPHILS % (AUTO) 0.4 % (0-1); EOSINOPHILS % (AUTO) 0 % (0-6); LYMPHOCYTES # (AUTO) 0.7 X10'3 (1.1-4.8); LYMPHOCYTES % (AUTO) 3.5 % (21-51); MEAN PLATELET VOLUME 10.4 FL (7.4-10.4); MONOCYTES # (AUTO) 0.6 X10'3 (0-0.9); MONOCYTES % (AUTO) 3.1 % (2-12); NEUTROPHILS # (AUTO) 18.4 X10'3 (1.8-7.7); PLATELET COUNT 299 X10'3 (140-440); WHITE BLOOD COUNT 19.8 X10'3 (4.5-11.0)
[2020-10-09 10:43] LABS: HEMATOCRIT 47.2 % (35.0-45.0); HEMOGLOBIN 15.6 g/dl (12.0-16.0); MEAN CORPUSCULAR HEMOGLOBIN 28.8 PG (27.0-31.0); MEAN CORPUSCULAR HGB CONC 33.1 g/dL (33.0-36.5); RED BLOOD COUNT 5.42 X10'6 (4.20-5.60)
[2020-10-09 10:45] LABS: ALANINE AMINOTRANSFERASE 35 U/L (12-78); ALBUMIN 3.8 G/DL (3.4-5.0); ALKALINE PHOSPHATASE 131 IU/L (46-116); ASPARTATE AMINO TRANSFERASE 12 U/L (10-37); BILIRUBIN,TOTAL 0.5 MG/DL (0.1-1.0); BLOOD UREA NITROGEN 39 MG/DL (7-18); BUN/CREATININE RATIO 21.4 (6.6-38.0); CALCIUM 9.3 MG/DL (8.5-10.1); CHLORIDE 91 MMOL/L (99-107); CREATININE 1.82 MG/DL (0.40-0.90); LIPASE < 50 U/L (73-393); POTASSIUM 5.9 MMOL/L (3.5-5.1); SODIUM 133 MMOL/L (135-145); TOTAL PROTEIN 7.8 G/DL (6.4-8.2); eGFR 29 ML/MIN
[2020-10-09 10:47] LABS: ANION GAP 37 (8-16)
[2020-10-09 11:08] LABS: GLUCOSE 718 MG/DL (70-104); TOTAL CARBON DIOXIDE < 5 MMOL/L (24-32)
[2020-10-09] MEDS ORDERED: sodium bicarbonate (8.4%) inj. 100 MEQ in dextrose 5% water 500ml 500 ML IV PRN ×2 (11:10→13:40)
[2020-10-09] MEDS ORDERED: insulin regular, human U-100 3ml vial - multi-dose IV PRN ×2 (11:10→13:40)
[2020-10-09] MEDS ORDERED: morphine 4 MG/ML inj SYRINge IV ONE (11:10)
[2020-10-09] MEDS ORDERED: potassium CL 20mEq in D5-1/2NS 1,000 ML IV PRN ×2 (11:10→13:40)
[2020-10-09] MEDS ORDERED: potassium Cl 20 mEq SR tablet PO PRN ×6 (11:10→13:40)
[2020-10-09] MEDS ORDERED: Neutra Phos packet PO PRN ×2 (11:10→13:40)
[2020-10-09] MEDS ORDERED: sodium phosphate inj. 15 MMOL in dextrose 5%-water 250 ML IV PRN ×2 (11:10→13:40)
[2020-10-09] MEDS ORDERED: sodium phosphate inj. 30 MMOL in dextrose 5%-water 250 ML IV PRN ×2 (11:10→13:40)
[2020-10-09] MEDS ORDERED: Insulin Reg/NS 100units/100mL 100 ML IV SCH ×2 (11:10→13:40)
[2020-10-09] MEDS ORDERED: sodium bicarbonate (8.4%) inj. 50 MEQ in dextrose 5% water 500ml 250 ML IV PRN ×2 (11:10→13:40)
[2020-10-09] MEDS ORDERED: normal saline 1000ml 1,000 ML IV SCH (11:10)
[2020-10-09] MEDS ORDERED: potassium Cl 40MEQ/1/2NS 520ml 520 ML IV PRN ×6 (11:10→13:40)
[2020-10-09 11:37] LABS: CLARITY,URINE CLEAR (Clear); COLOR,URINE STRAW (Yellow); GLUCOSE, URINE >=1000 mg/dl (Neg); KETONES,URINE >=80 mg/dl (Neg); LEUKOCYTE ESTERASE ,URINE NEGATIVE (Neg); NITRITES, URINE NEGATIVE (Neg); OCCULT BLOOD,URINE TRACE-LYSED (Neg); PH,URINE 5.5 (4.8-8.0); PROTEIN,URINE TRACE mg/dl (Neg); UROBILINOGEN,URINE 0.2 E.U/dL (0.2-1.0)
[2020-10-09 11:40] LABS: ABG BASE EXCESS -26.6 mmol/L (-2.0-2.0); ABG HCO3 2.5 mmol/L (22.0-26.0); ABG OXYGEN SATURATION 98.1 % (94-97); ABG PCO2 (T) 10.3 mmHg (32.0-45.0); ABG PO2 (T) 135.1 mmHg (75.0-100.0); ALLEN'S TEST POSITIVE; FCOHb 0.7 % (0.0-3.9); FMetHb 0.2 % (0.0-1.5); FO2Hb 97.2 % (94-97); TOTAL HEMOGLOBIN 14.4 G/dl (12.0-16.0)
[2020-10-09 11:44] LABS: PHOSPHORUS 8.2 MG/DL (2.3-4.5)
[2020-10-09 11:46] LABS: UA COLLECTION TYPE CLN CATCH MIDSTREAM
[2020-10-09 11:47] LABS: WBC,URINE 0-4 /HPF (0-4)
[2020-10-09 11:48] LABS: BACTERIA,URINE NONE SEEN /HPF (Neg); RBC,URINE 0-2 /HPF (0-2); SQUAMOUS EPITHELIAL CELL,UR FEW /LPF (FEW); YEAST FEW /HPF (NEGATIVE)
[2020-10-09] MEDS ORDERED: DIAZ2TAB3 PO (12:29)
[2020-10-09] MEDS ORDERED: PARO25TA3 PO (12:29)
[2020-10-09] MEDS ORDERED: HCTZ25T PO (12:29)
[2020-10-09] MEDS ORDERED: TRAZ-251 PO (12:29)
[2020-10-09] MEDS ORDERED: HYDR-4353 PO (12:29)
--- NOTE | 2020-10-09 12:29 | NUR ---
pt unable to recall all of her medication. was able to finish a majority of medication using pt and pharmacy pickup list.
[2020-10-09] MEDS ORDERED: LORazepam 2 mg/ml vial IV ONE (13:30)
[2020-10-09] MEDS ORDERED: magnesium hydroxide 30ml (MOM) UD suspension PO PRN (13:40)
[2020-10-09] MEDS ORDERED: HYDROcodone/acetaminophen 5mg/325mg tablet PO PRN (13:40)
[2020-10-09] MEDS ORDERED: acetaminophen 325mg tablet PO PRN ×2 (13:40)
[2020-10-09] MEDS ORDERED: ondansetron/PF 4mg/2ml inj IV PRN (13:40)
[2020-10-09] MEDS ORDERED: magnesium 2GM in 50ml NS 50 ML IV PRN (13:40)
[2020-10-09] MEDS ORDERED: HYDROmorphone inj. 0.5 MG/0.5 ML DISP.SYRIN IV PRN (13:40)
[2020-10-09] MEDS ORDERED: metoclopramide 5 mg/ml inj IV PRN (13:40)
[2020-10-09] MEDS ORDERED: acetaminophen 650mg rectal suppository RC PRN (13:40)
[2020-10-09] MEDS ORDERED: bisacodyl 10mg suppository rectal RC PRN (13:40)
[2020-10-09] MEDS ORDERED: magnesium Cl slow-release 64mg tablet PO PRN (13:40)
[2020-10-09] MEDS ORDERED: mag hydrox/Alum hydrox/simeth 30ml oral suspension PO PRN (13:40)
[2020-10-09] MEDS ORDERED: magnesium 4gm in 100ml NS 100 ML IV PRN (13:40)
[2020-10-09] MEDS: normal saline 1000ml 1,000 ML IV SCH ×3 (15:31→21:40)
[2020-10-09 16:25] LABS: ALBUMIN 3.2 G/DL (3.4-5.0); ANION GAP 27 (8-16); BLOOD UREA NITROGEN 37 MG/DL (7-18); BUN/CREATININE RATIO 24.7 (6.6-38.0); CALCIUM 7.9 MG/DL (8.5-10.1); CHLORIDE 105 MMOL/L (99-107); GLUCOSE 427 MG/DL (70-104); PHOSPHORUS 4.4 MG/DL (2.3-4.5); POTASSIUM 4.8 MMOL/L (3.5-5.1); SODIUM 142 MMOL/L (135-145); eGFR 36 ML/MIN
[2020-10-09 16:30] LABS: TOTAL CARBON DIOXIDE 10.2 MMOL/L (24-32)
--- NOTE | 2020-10-09 16:33 | NUR ---
paged hospitalist regarding pt's co2 of 10.2
--- NOTE | 2020-10-09 16:34 | NUR ---
dr. Marrufo called back no new orders
--- NOTE | 2020-10-09 16:39 | NUR ---
pt is sleeping she is less aggitated than before ativan was given
[2020-10-09] MEDS ORDERED: enoxaparin 40mg/0.4ml syringe SQ SCH (20:00)
[2020-10-09] MEDS: budesonide 0.5mg/2ml UD nebule IH SCH (20:00)
[2020-10-09] MEDS ORDERED: K and/or MAG REPLACEMENT MC SCH ×2 (20:00)
[2020-10-09] MEDS: K and/or MAG REPLACEMENT MC SCH (20:00)
[2020-10-09] MEDS ORDERED: temazepam 15mg capsule PO PRN (21:00)
[2020-10-09] MEDS: apixaban 5mg tablet PO SCH (21:39)
[2020-10-09] MEDS: traZODone 50mg tablet PO SCH (21:39)
[2020-10-09] MEDS: pregabalin 25mg capsule PO SCH (21:40)
[2020-10-09 23:00] LABS: ALANINE AMINOTRANSFERASE 30 U/L (12-78); ALBUMIN 2.8 G/DL (3.4-5.0); ALBUMIN/GLOBULIN RATIO 0.9 (1.1-1.5); ALKALINE PHOSPHATASE 89 IU/L (46-116); ANION GAP 11 (8-16); ASPARTATE AMINO TRANSFERASE 11 U/L (10-37); BILIRUBIN,TOTAL 0.5 MG/DL (0.1-1.0); BLOOD UREA NITROGEN 28 MG/DL (7-18); BUN/CREATININE RATIO 23.3 (6.6-38.0); CALCIUM 7.9 MG/DL (8.5-10.1); CHLORIDE 111 MMOL/L (99-107); GLUCOSE 124 MG/DL (70-104); POTASSIUM 4.2 MMOL/L (3.5-5.1); SODIUM 143 MMOL/L (135-145); TOTAL PROTEIN 5.8 G/DL (6.4-8.2); eGFR 47 ML/MIN
--- NOTE | 2020-10-09 23:24 | NUR ---
pt bp dropped to 77/54 on right upper arm, bp was retaken on right calf abd was 97/52 this is where her bp has been for most of the day. if it goes lower hospitalist will be notified. will continue to monitor
[2020-10-10] VITALS (9 sets, daily range): BP systolic 83–117; BP diastolic 45–73
--- NOTE | 2020-10-10 00:13 | NUR ---
PAGER ID: [phone] MESSAGE: ED BED 13 PLEASE CALL I HAVE SOME QUESTIONS RE PTS BP AND DKA
--- NOTE | 2020-10-10 00:18 | NUR ---
SPOKE TO DR. QUIROS ABOUT PT'S LOW BP AND BLOOD SUGAR NUMBERS, NO NEW ORDERS JUST NEW AM LABS NEED TO BE DRAWN AND CONTINUE TO MONITOR PT.
--- NOTE | 2020-10-10 00:49 | NUR ---
PAGED DR. QUIROS PT'S BP WENT DOWN TO 82/44 SHE ORDERED A LITER FLUID BOLUS, WILL CONTINUE TO MONITOR
[2020-10-10] MEDS ORDERED: normal saline 1000ml 1,000 ML IV ONE ×2 (00:50→22:05)
[2020-10-10] MEDS: normal saline 1000ml 1,000 ML IV SCH ×7 (01:40→22:05)
[2020-10-10 01:45] LABS: ALBUMIN 2.7 G/DL (3.4-5.0); ANION GAP 8 (8-16); BLOOD UREA NITROGEN 25 MG/DL (7-18); BUN/CREATININE RATIO 22.9 (6.6-38.0); CALCIUM 7.8 MG/DL (8.5-10.1); CHLORIDE 112 MMOL/L (99-107); CREATININE 1.09 MG/DL (0.40-0.90); GLUCOSE 99 MG/DL (70-104); MAGNESIUM 1.7 MG/DL (1.5-2.4); PHOSPHORUS 2.3 MG/DL (2.3-4.5); POTASSIUM 4.1 MMOL/L (3.5-5.1); SODIUM 143 MMOL/L (135-145); TOTAL CARBON DIOXIDE 22.8 MMOL/L (24-32); eGFR 53 ML/MIN
--- NOTE | 2020-10-10 02:14 | NUR ---
I called Dr Brunson to let her know about the bp and the glucose. She is putting in orders. VO to stop insulin gtt.
[2020-10-10] MEDS ORDERED: NORepinephrine 8mg/ 250ml NS 250 ML IV SCH (02:15)
--- NOTE | 2020-10-10 02:15 | NUR ---
Insulin gtt stopped.
--- NOTE | 2020-10-10 02:25 | NUR ---
Dr Gallo at to do a central line
--- NOTE | 2020-10-10 02:25 | NUR ---
Pt doing fairly well. C/O abd pain x 10. She is weepy. Her questions for why she was getting a lr catheter and why she was getting a central line were answered. She is still weepy.
[2020-10-10] MEDS ORDERED: LIDOcaine 1% W/epiNEPHrine 1:100,000 20ml vial SQ STA (02:39)
--- NOTE | 2020-10-10 02:47 | NUR ---
Called Dr Brunson to inform her that with the lr and the central line being placed she is awake and crying and that her bp has improved. Instructed to have norepi at BS and start if map decreased to below 65. Instructed to turn the D51/2 NS with 20 K down to 250.
[2020-10-10] MEDS ORDERED: glucagon, human recombinant 1mg kit SUBCUT PRN (02:50)
[2020-10-10] MEDS ORDERED: dextrose ORAL solution 15 GM/59 ML bottle PO PRN ×2 (02:50)
[2020-10-10] MEDS ORDERED: dextrose 50%-water 50ml dispensing syringe IV PRN ×2 (02:50)
[2020-10-10] MEDS ORDERED: MESSAGE TO PHARMACY PO ONE (02:50)
[2020-10-10] MEDS ORDERED: LORazepam 2 mg/ml vial IV ONE (03:00)
[2020-10-10 03:14] LABS: HEMOGLOBIN A1C 12.1 % (4.5-6.2)
--- NOTE | 2020-10-10 04:17 | NUR ---
DR QUIROS RETURNED CLARIFIED TO DECREASE IVF RATE TO 150 ML/HOUR
[2020-10-10 04:49] LABS: ALBUMIN 2.8 G/DL (3.4-5.0); ANION GAP 15 (8-16); BLOOD UREA NITROGEN 23 MG/DL (7-18); BUN/CREATININE RATIO 23.7 (6.6-38.0); CALCIUM 7.8 MG/DL (8.5-10.1); CHLORIDE 109 MMOL/L (99-107); CREATININE 0.97 MG/DL (0.40-0.90); GLUCOSE 178 MG/DL (70-104); MAGNESIUM 1.7 MG/DL (1.5-2.4); PHOSPHORUS 2.3 MG/DL (2.3-4.5); POTASSIUM 4.2 MMOL/L (3.5-5.1); SODIUM 141 MMOL/L (135-145); eGFR 60 ML/MIN
--- NOTE | 2020-10-10 05:53 | NUR ---
dr cates here ivf down to 75ml/hr
--- NOTE | 2020-10-10 06:30 | NUR ---
faxed down for breakfast tray.
--- NOTE | 2020-10-10 07:21 | NUR ---
pt eating sandwitch and cheese, called pharmacy for insulin
[2020-10-10] MEDS: lisinopril 2.5mg tablet PO SCH (08:00)
[2020-10-10] MEDS: K and/or MAG REPLACEMENT MC SCH ×2 (08:00→20:00)
[2020-10-10] MEDS: aspirin 81mg tablet.DR PO SCH (08:55)
[2020-10-10] MEDS: duloxetine 30mg CAPSULE.DR PO SCH (08:55)
[2020-10-10] MEDS: PARoxetine 20mg tablet PO SCH (08:55)
[2020-10-10] MEDS: apixaban 5mg tablet PO SCH ×2 (08:56→20:07)
[2020-10-10] MEDS: insulin Lispro (HumaLOG) vial - multi-dose SQ SCH ×3 (09:01→21:44)
--- NOTE | 2020-10-10 09:08 | NUR ---
called pharmacy, stated will fill morning medications that are not in [facility] and bring down.
[2020-10-10] MEDS: pantoprazole 40mg Tablet.DR PO SCH (09:11)
[2020-10-10] MEDS: pregabalin 25mg capsule PO SCH ×3 (09:44→20:08)
[2020-10-10] MEDS: amitriptyline 10mg tablet PO SCH (09:44)
[2020-10-10] MEDS: diazepam 2mg tablet PO SCH (09:45)
[2020-10-10] MEDS: budesonide 0.5mg/2ml UD nebule IH SCH ×2 (09:47→20:44)
--- NOTE | 2020-10-10 11:34 | NUR ---
SPOKE WITH DR WILD ABOUT PT POC. STATED NEED TO FIND OUT HOW PATIENT USES INSULIN PUMP. PT UNSURE HOW TO PROGRAM PUMP.
--- NOTE | 2020-10-10 11:47 | NUR ---
PT INSULIN PUMP FOUND IN PURSE WITH NO BATTERY. SPOKE WITH SON TO BRING EXTRA SUPPLIES TO HOSPITAL. INSULIN PUMP PLACED ON DEBURR OPERATOR.
--- NOTE | 2020-10-10 12:49 | NUR ---
Breaking primary RN, pt is asleep, regular breathing, VSS, no needs at this time
--- NOTE | 2020-10-10 15:26 | NUR ---
attempted to call report. rn unavailable at this time will call back.
--- NOTE | 2020-10-10 15:54 | NUR ---
Patient in room ED 13. I have received report from bishnu Hardy rn and had the opportunity to ask questions and assume patient care.
--- NOTE | 2020-10-10 16:15 | NUR ---
received pt into room 310,oriented to surroundings,pt lethargic,but responsive,follows commands,moniter shows NSR,v/S stable
[2020-10-10 18:28] LABS: BASOPHILS % (AUTO) 0.5 % (0-1); EOSINOPHILS % (AUTO) 0.2 % (0-6); HEMATOCRIT 37.1 % (35.0-45.0); HEMOGLOBIN 12.1 g/dl (12.0-16.0); LYMPHOCYTES # (AUTO) 1.8 X10'3 (1.1-4.8); LYMPHOCYTES % (AUTO) 18.7 % (21-51); MEAN CORPUSCULAR HEMOGLOBIN 28.8 PG (27.0-31.0); MEAN CORPUSCULAR HGB CONC 32.6 g/dL (33.0-36.5); MEAN CORPUSCULAR VOLUME 88.2 FL (78-98); MEAN PLATELET VOLUME 9.2 FL (7.4-10.4); MONOCYTES # (AUTO) 0.5 X10'3 (0-0.9); MONOCYTES % (AUTO) 5.1 % (2-12); NEUTROPHILS # (AUTO) 7.5 X10'3 (1.8-7.7); NEUTROPHILS % (AUTO) 75.5 % (42-75); PLATELET COUNT 162 X10'3 (140-440); RED CELL DISTRIBUTION WIDTH 15.6 % (11.5-14.5); WHITE BLOOD COUNT 9.9 X10'3 (4.5-11.0)
[2020-10-10 18:41] LABS: ALANINE AMINOTRANSFERASE 29 U/L (12-78); ALBUMIN 2.8 G/DL (3.4-5.0); ALBUMIN/GLOBULIN RATIO 0.9 (1.1-1.5); ALKALINE PHOSPHATASE 89 IU/L (46-116); ANION GAP 16 (8-16); ASPARTATE AMINO TRANSFERASE 19 U/L (10-37); BILIRUBIN,TOTAL 0.6 MG/DL (0.1-1.0); BLOOD UREA NITROGEN 16 MG/DL (7-18); CALCIUM 8.4 MG/DL (8.5-10.1); CHLORIDE 103 MMOL/L (99-107); CREATININE 1.07 MG/DL (0.40-0.90); GLUCOSE 374 MG/DL (70-104); PHOSPHORUS 2.1 MG/DL (2.3-4.5); POTASSIUM 4.3 MMOL/L (3.5-5.1); SODIUM 135 MMOL/L (135-145); TOTAL CARBON DIOXIDE 15.9 MMOL/L (24-32); TOTAL PROTEIN 5.9 G/DL (6.4-8.2); eGFR 54 ML/MIN
--- NOTE | 2020-10-10 18:47 | NUR ---
Problems reprioritized. Patient report given, questions answered & plan of care reviewed with CARLA TURCIOS.
--- NOTE | 2020-10-10 18:49 | NUR ---
Patient in room MED 310. I have received report from Halina AGUIRRE and had the opportunity to ask questions and assume patient care.
[2020-10-10] MEDS: traZODone 50mg tablet PO SCH (20:08)
[2020-10-10] MEDS: HYDROcodone/acetaminophen 10/325mg tab PO PRN (20:15)
[2020-10-10] MEDS ORDERED: insulin glargine (Lantus) pen - multi-dose SQ SCH (21:00)
[2020-10-11] VITALS: BP 73/41
[2020-10-11 00:15] VITALS: BP 79/41
[2020-10-11] MEDS: HYDROcodone/acetaminophen 10/325mg tab PO PRN ×2 (00:17→01:25)
[2020-10-11 01:00] VITALS: BP 83/49
[2020-10-11] MEDS ORDERED: normal saline 1000ml 1,000 ML IV ONE (01:20)
[2020-10-11] MEDS: normal saline 1000ml 1,000 ML IV SCH ×5 (01:40→12:46)
[2020-10-11 02:00] VITALS: BP 95/58
[2020-10-11 06:00] VITALS: BP 95/68
--- NOTE | 2020-10-11 06:10 | NUR ---
Problems reprioritized. Patient report given, questions answered & plan of care reviewed with DERRELL AGUIRRE.
[2020-10-11 06:54] LABS: BASOPHILS # (AUTO) 0.1 X10'3 (0-0.2); BASOPHILS % (AUTO) 0.7 % (0-1); EOSINOPHILS # (AUTO) 0.1 X10'3 (0-0.9); HEMATOCRIT 32.1 % (35.0-45.0); HEMOGLOBIN 10.8 g/dl (12.0-16.0); LYMPHOCYTES # (AUTO) 2.4 X10'3 (1.1-4.8); LYMPHOCYTES % (AUTO) 31.9 % (21-51); MEAN CORPUSCULAR HEMOGLOBIN 29.3 PG (27.0-31.0); MEAN CORPUSCULAR HGB CONC 33.8 g/dL (33.0-36.5); MEAN CORPUSCULAR VOLUME 86.8 FL (78-98); MEAN PLATELET VOLUME 8.9 FL (7.4-10.4); MONOCYTES # (AUTO) 0.4 X10'3 (0-0.9); MONOCYTES % (AUTO) 5.4 % (2-12); NEUTROPHILS # (AUTO) 4.5 X10'3 (1.8-7.7); PLATELET COUNT 124 X10'3 (140-440); RED BLOOD COUNT 3.69 X10'6 (4.20-5.60); RED CELL DISTRIBUTION WIDTH 15.6 % (11.5-14.5); WHITE BLOOD COUNT 7.5 X10'3 (4.5-11.0)
[2020-10-11 07:13] LABS: ALANINE AMINOTRANSFERASE 22 U/L (12-78); ALBUMIN 2.4 G/DL (3.4-5.0); ALBUMIN/GLOBULIN RATIO 0.9 (1.1-1.5); ALKALINE PHOSPHATASE 79 IU/L (46-116); ANION GAP 6 (8-16); ASPARTATE AMINO TRANSFERASE 15 U/L (10-37); BILIRUBIN,TOTAL 0.4 MG/DL (0.1-1.0); BLOOD UREA NITROGEN 15 MG/DL (7-18); BUN/CREATININE RATIO 17.2 (6.6-38.0); CALCIUM 7.8 MG/DL (8.5-10.1); CHLORIDE 106 MMOL/L (99-107); CREATININE 0.87 MG/DL (0.40-0.90); GLUCOSE 249 MG/DL (70-104); MAGNESIUM 1.7 MG/DL (1.5-2.4); PHOSPHORUS 2.2 MG/DL (2.3-4.5); SODIUM 137 MMOL/L (135-145); TOTAL CARBON DIOXIDE 24.9 MMOL/L (24-32); TOTAL PROTEIN 5.1 G/DL (6.4-8.2); eGFR 68 ML/MIN
[2020-10-11] MEDS: budesonide 0.5mg/2ml UD nebule IH SCH (07:39)
[2020-10-11] MEDS: aspirin 81mg tablet.DR PO SCH (07:58)
[2020-10-11] MEDS: amitriptyline 10mg tablet PO SCH (07:59)
[2020-10-11] MEDS: PARoxetine 20mg tablet PO SCH (07:59)
[2020-10-11] MEDS: apixaban 5mg tablet PO SCH (07:59)
[2020-10-11] MEDS: pantoprazole 40mg Tablet.DR PO SCH (07:59)
[2020-10-11] MEDS: pregabalin 25mg capsule PO SCH ×2 (07:59→13:08)
[2020-10-11] MEDS: duloxetine 30mg CAPSULE.DR PO SCH (07:59)
[2020-10-11] MEDS: K and/or MAG REPLACEMENT MC SCH (08:00)
[2020-10-11] MEDS: lisinopril 2.5mg tablet PO SCH (08:00)
[2020-10-11] MEDS: diazepam 2mg tablet PO SCH (08:11)
[2020-10-11] MEDS: insulin Lispro (HumaLOG) vial - multi-dose SQ SCH ×2 (09:01→13:11)
[2020-10-11] MEDS ORDERED: FLU VACC QS2020-21(6MOS UP)/PF 60 MCG/0.5 ML SYRINGE IMVAC ONE (10:00)
[2020-10-11] MEDS ORDERED: BLOO-122 METER (10:54)
[2020-10-11] MEDS ORDERED: LANTUS SQ (10:54)
[2020-10-11] MEDS ORDERED: INSU100V11 SQ (10:54)
--- NOTE | 2020-10-11 15:00 | NUR ---
Patient ready for discharge. Insulin and diabetes information reviewed with patient. All questions answered for patient. Prescriptions called into pharmacy. New glucometer, strips, and lancets will be ready for pickle water pump operator at pharmacy.
== END 2020-10-11 15:08 | disposition home or self-care (01) | DRG 420 ==
LOC: ER 09:20 → ED HOLD 13:37 → MED 3N 10-10 16:09
PROVIDERS: ADMIT Family Medicine; ATTEND Family Medicine
DX: E10.10 Type 1 diabetes mellitus with ketoacidosis without coma (principal); E03.9 Hypothyroidism, unspecified; E78.00 Pure hypercholesterolemia, unspecified; E78.5 Hyperlipidemia, unspecified; E87.1 Hypo-osmolality and hyponatremia; E87.5 Hyperkalemia; I48.91 Unspecified atrial fibrillation; I50.9 Heart failure, unspecified; Z96.41 Presence of insulin pump (external) (internal); F32.9 Major depressive disorder, single episode, unspecified; F41.9 Anxiety disorder, unspecified; G89.29 Other chronic pain; E10.22 Type 1 diabetes mellitus with diabetic chronic kidney disease; N18.9 Chronic kidney disease, unspecified; I13.0 Hypertensive heart and chronic kidney disease with heart failure and stage 1 through stage 4 chronic kidney disease, or unspecified chronic kidney disease; K21.9 Gastro-esophageal reflux disease without esophagitis; J44.9 Chronic obstructive pulmonary disease, unspecified; K29.70 Gastritis, unspecified, without bleeding; N17.9 Acute kidney failure, unspecified; Z28.21 Immunization not carried out because of patient refusal; Z79.01 Long term (current) use of anticoagulants; Z79.4 Long term (current) use of insulin; Z85.41 Personal history of malignant neoplasm of cervix uteri; Z90.710 Acquired absence of both cervix and uterus; Z88.0 Allergy status to penicillin; Z88.8 Allergy status to other drugs, medicaments and biological substances; Z90.49 Acquired absence of other specified parts of digestive tract
CPT/HCPCS: 36415; 36600; 74176; 80048; 80053; 81001; 82803; 82948; 83036; 83690; 83735; 84100; 85018; 85025; 87081; 93005; 94640; 94760; 96361; 96365; 96366; 96375; 99291; G0378; J1815; J2060; J2270; J3480; J7030; J7626

== ENCOUNTER 2020-11-05 20:27 | Emergency (ER) | payer MEDICAID ==
[~2020-11-05] VITALS: Ht 170.2 cm; Wt 88.0 kg
[~2020-11-05 20:27] MED LIST changes: +BLOO-122 METER; -COROTSUS OT; -DOCU-267 PO; -DOXY-224 PO; +HYDR-4353 PO; +INSU100V11 SQ; -INSU100V43 SQ; -LACT1CAP26 PO; +PARO25TA3 PO; +TRAZ-251 PO
[2020-11-05] MEDS ORDERED: ondansetron/PF 4mg/2ml inj IV ONE (20:30)
[2020-11-05] MEDS ORDERED: normal saline 1000ML IV soln IVB ONE (20:30)
[2020-11-05] MEDS ORDERED: famotidine/PF 10 mg/ml inj IV ONE ×2 (20:35→21:10)
[2020-11-05] MEDS: morphine 4 MG/ML inj SYRINge IV PRN ×2 (20:46→21:41)
[2020-11-05 20:55] LABS: BASOPHILS % (AUTO) 0.6 % (0-1); EOSINOPHILS # (AUTO) 0.2 X10'3 (0-0.9); EOSINOPHILS % (AUTO) 2.2 % (0-6); HEMATOCRIT 39.2 % (35.0-45.0); HEMOGLOBIN 12.9 g/dl (12.0-16.0); LYMPHOCYTES # (AUTO) 1.2 X10'3 (1.1-4.8); LYMPHOCYTES % (AUTO) 16.3 % (21-51); MEAN CORPUSCULAR HEMOGLOBIN 28.9 PG (27.0-31.0); MEAN CORPUSCULAR HGB CONC 32.9 g/dL (33.0-36.5); MEAN CORPUSCULAR VOLUME 87.9 FL (78-98); MEAN PLATELET VOLUME 9.3 FL (7.4-10.4); MONOCYTES # (AUTO) 0.4 X10'3 (0-0.9); MONOCYTES % (AUTO) 6.2 % (2-12); NEUTROPHILS # (AUTO) 5.3 X10'3 (1.8-7.7); NEUTROPHILS % (AUTO) 74.7 % (42-75); PLATELET COUNT 169 X10'3 (140-440); RED BLOOD COUNT 4.46 X10'6 (4.20-5.60); RED CELL DISTRIBUTION WIDTH 16.1 % (11.5-14.5); WHITE BLOOD COUNT 7.1 X10'3 (4.5-11.0)
[2020-11-05 20:58] LABS: ALANINE AMINOTRANSFERASE 82 U/L (12-78); ALBUMIN 3.3 G/DL (3.4-5.0); ALKALINE PHOSPHATASE 117 IU/L (46-116); ANION GAP 7 (8-16); ASPARTATE AMINO TRANSFERASE 39 U/L (10-37); BILIRUBIN,TOTAL 0.2 MG/DL (0.1-1.0); BLOOD UREA NITROGEN 15 MG/DL (7-18); BUN/CREATININE RATIO 23.8 (6.6-38.0); CALCIUM 8.9 MG/DL (8.5-10.1); CHLORIDE 105 MMOL/L (99-107); CREATININE 0.63 MG/DL (0.40-0.90); ETHANOL < 0.010 GM/DL (0.0-0.010); GLUCOSE 157 MG/DL (70-104); LIPASE 74 U/L (73-393); SODIUM 142 MMOL/L (135-145); TOTAL CARBON DIOXIDE 30.3 MMOL/L (24-32); TOTAL PROTEIN 6.6 G/DL (6.4-8.2); eGFR > 90 ML/MIN
[2020-11-05] MEDS ORDERED: iohexol 300mg/ml 100ml inj. ONE (20:59)
[2020-11-05] MEDS ORDERED: pantoprazole 40 MG vial IV ONE (21:35)
[2020-11-05] MEDS ORDERED: metoclopramide 5 mg/ml inj IV ONE (21:35)
[2020-11-05] MEDS ORDERED: mag hydrox/Alum hydrox/simeth 30ml oral suspension PO ONE (21:35)
[2020-11-05] MEDS ORDERED: LIDOcaine Viscous 15ml cup MM ONE (21:35)
[2020-11-05] MEDS ORDERED: sucralfate 1 gm tablet PO ONE (21:35)
[2020-11-05 21:52] LABS: CLARITY,URINE CLEAR (Clear); COLOR,URINE YELLOW (Yellow); GLUCOSE, URINE >=1000 mg/dl (Neg); KETONES,URINE NEGATIVE (Neg); LEUKOCYTE ESTERASE ,URINE NEGATIVE (Neg); NITRITES, URINE NEGATIVE (Neg); OCCULT BLOOD,URINE NEGATIVE (Neg); PROTEIN,URINE NEGATIVE (Neg); UROBILINOGEN,URINE 0.2 E.U/dL (0.2-1.0)
[2020-11-05 21:58] LABS: URINE AMPHETAMINE SCREEN NEGATIVE (Neg); URINE BARBITUATE SCREEN NEGATIVE (Neg); URINE BENZODIAZEPINES SCREEN POSITIVE (Neg); URINE CANNABINOID SCREEN NEGATIVE (Neg); URINE COCAINE SCREEN NEGATIVE (Neg); URINE METHADONE SCREEN NEGATIVE (Neg); URINE OPIATE SCREEN POSITIVE (Neg); URINE PHENCYCLIDINE SCREEN NEGATIVE (Neg)
--- NOTE | 2020-11-05 22:00 | NUR ---
PT IS RESTING COMFORTABLY STATES HER STOMACH FEELS BETTER.
[2020-11-05 22:01] LABS: UA COLLECTION TYPE CLN CATCH MIDSTREAM
[2020-11-05 22:04] LABS: SQUAMOUS EPITHELIAL CELL,UR MODERATE /LPF (FEW)
[2020-11-05 22:05] LABS: BACTERIA,URINE 1+ /HPF (Neg); RBC,URINE NONE SEEN /HPF (0-2); WBC,URINE 0-4 /HPF (0-4)
[2020-11-05 22:10] VITALS: BP 123/80
== END 2020-11-05 22:24 | disposition home or self-care (01) ==
LOC: ER 20:28
DX: R10.13 Epigastric pain (principal); R11.0 Nausea; I48.91 Unspecified atrial fibrillation; I50.9 Heart failure, unspecified; E78.00 Pure hypercholesterolemia, unspecified; J45.909 Unspecified asthma, uncomplicated; K21.9 Gastro-esophageal reflux disease without esophagitis; E11.9 Type 2 diabetes mellitus without complications; G89.29 Other chronic pain; F41.9 Anxiety disorder, unspecified; F32.9 Major depressive disorder, single episode, unspecified; Z85.41 Personal history of malignant neoplasm of cervix uteri; Z90.49 Acquired absence of other specified parts of digestive tract; Z90.710 Acquired absence of both cervix and uterus; Z98.890 Other specified postprocedural states; Z56.0 Unemployment, unspecified; Z88.1 Allergy status to other antibiotic agents; Z88.0 Allergy status to penicillin; Z88.8 Allergy status to other drugs, medicaments and biological substances; Z79.82 Long term (current) use of aspirin; Z79.4 Long term (current) use of insulin; Z79.899 Other long term (current) drug therapy
CPT/HCPCS: 36415; 71045; 74177; 80053; 80305; 80320; 81001; 83690; 85025; 93005; 96361; 96374; 96375; 96376; 99285; C9113; J2270; J2405; J2765; J3490; J7030; Q9967

== ENCOUNTER 2020-11-19 06:14 | Inpatient (IN) | payer MEDICAID ==
[~2020-11-19] VITALS: Ht 170.2 cm; Wt 68.2 kg
[~2020-11-19 06:14] MED LIST changes: -LANTUS SQ
[2020-11-19] MEDS ORDERED: ketorolac tromethamine 15mg/ml inj. IV ONE (06:25)
[2020-11-19] MEDS ORDERED: normal saline 1000ML IV soln IVB ONE (06:25)
[2020-11-19] MEDS: Insulin Reg/NS 100units/100mL 100 ML IV PRN ×2 (06:55→18:03)
[2020-11-19 07:25] LABS: CLARITY,URINE CLEAR (Clear); COLOR,URINE YELLOW (Yellow); GLUCOSE, URINE >=1000 mg/dl (Neg); KETONES,URINE >=80 mg/dl (Neg); LEUKOCYTE ESTERASE ,URINE NEGATIVE (Neg); NITRITES, URINE NEGATIVE (Neg); OCCULT BLOOD,URINE TRACE-INTACT (Neg); PROTEIN,URINE 30 mg/dl (Neg); UROBILINOGEN,URINE 0.2 E.U/dL (0.2-1.0)
[2020-11-19 07:27] LABS: URINE HCG NEGATIVE (NEG)
[2020-11-19 07:31] LABS: UA COLLECTION TYPE CLN CATCH MIDSTREAM
[2020-11-19 07:34] LABS: BACTERIA,URINE NONE SEEN /HPF (Neg); RBC,URINE NONE SEEN /HPF (0-2); WBC,URINE NONE SEEN /HPF (0-4)
[2020-11-19 07:35] LABS: AMORPHOUS URATES 2+; SQUAMOUS EPITHELIAL CELL,UR FEW /LPF (FEW)
[2020-11-19] MEDS: morphine 4 MG/ML inj SYRINge IV PRN ×3 (07:39→17:41)
[2020-11-19 08:09] LABS: ALANINE AMINOTRANSFERASE 46 U/L (12-78); ALBUMIN 3.9 G/DL (3.4-5.0); ALBUMIN/GLOBULIN RATIO 0.9 (1.1-1.5); ALKALINE PHOSPHATASE 154 IU/L (46-116); ANION GAP 34 (8-16); BILIRUBIN,TOTAL 0.5 MG/DL (0.1-1.0); BLOOD UREA NITROGEN 32 MG/DL (7-18); BUN/CREATININE RATIO 18.4 (6.6-38.0); CALCIUM 9.5 MG/DL (8.5-10.1); CHLORIDE 92 MMOL/L (99-107); CREATININE 1.74 MG/DL (0.40-0.90); LIPASE 58 U/L (73-393); MAGNESIUM 2.1 MG/DL (1.5-2.4); SODIUM 132 MMOL/L (135-145); TOTAL PROTEIN 8.1 G/DL (6.4-8.2); eGFR 31 ML/MIN
[2020-11-19 08:10] LABS: TOTAL CARBON DIOXIDE 6.2 MMOL/L (24-32)
[2020-11-19 08:11] LABS: ASPARTATE AMINO TRANSFERASE 26 U/L (10-37); GLUCOSE 675 MG/DL (70-104); POTASSIUM 6.7 MMOL/L (3.5-5.1)
[2020-11-19] MEDS ORDERED: calcium chloride 100 MG/1 ML inj IV ONE (08:45)
[2020-11-19] MEDS ORDERED: sodium polystyrene sulfonate 15gm/60ml oral suspension PO ONE (08:45)
[2020-11-19 08:53] LABS: BASOPHILS # (AUTO) 0.1 X10'3 (0-0.2); BASOPHILS % (AUTO) 0.5 % (0-1); EOSINOPHILS % (AUTO) 0 % (0-6); HEMOGLOBIN 14.8 g/dl (12.0-16.0); LYMPHOCYTES # (AUTO) 0.8 X10'3 (1.1-4.8); LYMPHOCYTES % (AUTO) 3.8 % (21-51); MEAN PLATELET VOLUME 9.6 FL (7.4-10.4); MONOCYTES % (AUTO) 4.7 % (2-12); NEUTROPHILS # (AUTO) 19.7 X10'3 (1.8-7.7); PLATELET COUNT 291 X10'3 (140-440); WHITE BLOOD COUNT 21.6 X10'3 (4.5-11.0)
--- NOTE | 2020-11-19 08:54 | NUR ---
callled pharmacist regarding pt calcium chloride ,as per susanna it is going to take 10 mins .will send someone to [facility].
[2020-11-19] MEDS ORDERED: calcium chloride inj. 1,000 MG in normal saline 100ml IV soln 90 ML IV ONE (09:15)
[2020-11-19] MEDS ORDERED: calcium chloride inj. 1,000 MG in NS 100ml IV soln (110ml) IV ONE (09:15)
[2020-11-19 09:22] LABS: HEMATOCRIT 43.7 % (35.0-45.0); MEAN CORPUSCULAR HEMOGLOBIN 29.1 PG (27.0-31.0); MEAN CORPUSCULAR HGB CONC 33.9 g/dL (33.0-36.5); MEAN CORPUSCULAR VOLUME 85.9 FL (78-98); RED BLOOD COUNT 5.09 X10'6 (4.20-5.60); RED CELL DISTRIBUTION WIDTH 14.4 % (11.5-14.5)
--- NOTE | 2020-11-19 09:48 | NUR ---
spoke to charge nurse manas to thiago which protocol to follow as we have different one and dr espinoza has not order the protocol as per manas we need pt to be on our dka protocol ,notified dr espinoza as per md he will put in orders as per dka protocol.
--- NOTE | 2020-11-19 10:47 | NUR ---
NOTIFIED ANDREW COELHO THAT WE HAVE NOT RECIEVED ANY ORDERS FOR DKA PROTOCOL DR KIRKLAND HAS NOT ORDER YET.ANDREW COELHO STATED TO ORDER DKA PROTOCOL AND NOTIFIED HOSPITALIST.
[2020-11-19] MEDS ORDERED: potassium CL 20mEq in D5-1/2NS 1,000 ML IV PRN ×2 (10:50→12:10)
[2020-11-19] MEDS ORDERED: Insulin Reg/NS 100units/100mL 100 ML IV SCH (10:50)
[2020-11-19] MEDS ORDERED: insulin regular, human U-100 3ml vial - multi-dose IV PRN (10:50)
[2020-11-19] MEDS ORDERED: magnesium 2GM in 50ml NS 50 ML IV PRN (10:50)
[2020-11-19] MEDS ORDERED: potassium Cl 20 mEq SR tablet PO PRN (10:50)
[2020-11-19] MEDS ORDERED: magnesium 4gm in 100ml NS 100 ML IV PRN (10:50)
[2020-11-19] MEDS ORDERED: acetaminophen 325mg tablet PO PRN (10:50)
[2020-11-19] MEDS ORDERED: sodium bicarbonate (8.4%) inj. 50 MEQ in dextrose 5% water 500ml 250 ML IV PRN (10:50)
[2020-11-19] MEDS: normal saline 1000ml 1,000 ML IV SCH ×8 (10:50→21:51)
[2020-11-19] MEDS ORDERED: sodium bicarbonate (8.4%) inj. 100 MEQ in dextrose 5% water 500ml 500 ML IV PRN (10:50)
[2020-11-19] MEDS ORDERED: potassium Cl 40MEQ/1/2NS 520ml 520 ML IV PRN ×2 (10:50)
--- NOTE | 2020-11-19 10:53 | NUR ---
SPOKE TO DR JULIEN REGARDING PT CONDITION AND INFORMED THAT WE DO NOT HAVE DKA PROTOCOL ON PT PER DR JULIEN ITS OKAY TO START DKA PROTOCOL.WILL ORDER THE DKA PRO.
[2020-11-19 11:52] LABS: ALBUMIN 3.6 G/DL (3.4-5.0); ANION GAP 25 (8-16); BLOOD UREA NITROGEN 32 MG/DL (7-18); BUN/CREATININE RATIO 20.5 (6.6-38.0); CALCIUM 9.3 MG/DL (8.5-10.1); CHLORIDE 106 MMOL/L (99-107); CREATININE 1.56 MG/DL (0.40-0.90); GLUCOSE 288 MG/DL (70-104); PHOSPHORUS 5.6 MG/DL (2.3-4.5); POTASSIUM 4.7 MMOL/L (3.5-5.1); SODIUM 141 MMOL/L (135-145); eGFR 35 ML/MIN
[2020-11-19 11:54] LABS: TOTAL CARBON DIOXIDE 10.2 MMOL/L (24-32)
[2020-11-19] MEDS: dextrose 5%-normal saline 1,000 ML IV SCH ×2 (12:22→17:43)
[2020-11-19] MEDS ORDERED: CALC-1260 PO (12:26)
[2020-11-19] MEDS ORDERED: DIAZ2TAB4 PO (12:27)
[2020-11-19] MEDS ORDERED: POTA10TA36 PO (12:27)
[2020-11-19] MEDS ORDERED: PARO20TA6 PO (12:28)
[2020-11-19] MEDS ORDERED: LANTUS SQ (12:31)
[2020-11-19] MEDS ORDERED: PREG100C PO (12:33)
[2020-11-19] MEDS ORDERED: ALBU90AE IH (12:35)
[2020-11-19] MEDS ORDERED: BECL10.6 IH (12:37)
[2020-11-19] MEDS ORDERED: HYDR25TA4 PO (12:38)
[2020-11-19] MEDS ORDERED: INSU100V43 SQ (13:04)
--- NOTE | 2020-11-19 14:57 | NUR ---
Called to receive report from ER, I was informed that the nurse will call me back in 5 minutes.
--- NOTE | 2020-11-19 15:13 | NUR ---
Patient in room ED 6. I have received report from CARLA Castaneda and had the opportunity to ask questions and awaiting pt's arrival from ED.
[2020-11-19 15:30] VITALS: BP 108/56
--- NOTE | 2020-11-19 15:30 | NUR ---
Patient arrived from ED, ambulated from ED [facility] with 1 person contact to bed. Alert and oriented to room. BLL, SRx2, CL within reach, non skid socks on. First set of vitals complete. MRSA nasal swab collected. 2 RN skin check complete. Insulin gtt and D5 1/2 NS running per MD order.
[2020-11-19 15:51] LABS: ALBUMIN 3.1 G/DL (3.4-5.0); ANION GAP 12 (8-16); BLOOD UREA NITROGEN 28 MG/DL (7-18); BUN/CREATININE RATIO 22.4 (6.6-38.0); CHLORIDE 111 MMOL/L (99-107); CREATININE 1.25 MG/DL (0.40-0.90); GLUCOSE 147 MG/DL (70-104); SODIUM 143 MMOL/L (135-145); TOTAL CARBON DIOXIDE 19.8 MMOL/L (24-32); eGFR 45 ML/MIN
--- NOTE | 2020-11-19 16:12 | NUR ---
Paged Dr Deras PAGER ID: [phone] MESSAGE: Cherelle FerrariMagdalenon [id number] Pt's blood sugar is 126, insulin is at 7units/hr and maxed out with 250ml/hr of D5 1/2 NS. Can I decrease the insulin? Please advise. Thank you Louise [phone]
--- NOTE | 2020-11-19 17:04 | NUR ---
Paged Dr Deras regarding pt's blood sugar PAGER ID: [phone] MESSAGE: Re Juana Ferrari [id number] Pt's blood sugar 118, insulin still running at 7units/hr, maxed D5 1/2NS @250ml/hr. Please advise if I can decrease insulin. Thank you Louise [phone]
[2020-11-19] MEDS: ondansetron/PF 4mg/2ml inj IV PRN (17:42)
[2020-11-19 18:00] VITALS: BP 90/44
[2020-11-19] MEDS ORDERED: Insulin Reg/NS 100units/100mL 100 ML IV PRN ×2 (18:08→23:23)
--- NOTE | 2020-11-19 18:23 | NUR ---
Problems reprioritized. Patient report given, questions answered & plan of care reviewed with CARLA Taveras.
[2020-11-19 19:00] VITALS: BP 95/51
[2020-11-19 19:05] LABS: PHOSPHORUS 2.7 MG/DL (2.3-4.5)
[2020-11-19] MEDS: K and/or MAG REPLACEMENT MC SCH (19:22)
--- NOTE | 2020-11-19 19:32 | NUR ---
PAGER ID: [phone] MESSAGE: [id number] ALEXANDER GUIDO. PATIENT IS RETANING 500CC IS ON AN INSULIN GTT AND WAS REQUESTING FOR A BROWN ORDER FOR STRICT I'S AND O'S. ALSO IN REGARDS TO GLUCOSE CONTROL I HAVE A FEW QUESTIONS OF WHAT YOUR POC THANKS ROBERTA AGUIRRE
[2020-11-19 19:37] LABS: ALBUMIN 3.1 G/DL (3.4-5.0); ANION GAP 14 (8-16); BLOOD UREA NITROGEN 25 MG/DL (7-18); CALCIUM 8.6 MG/DL (8.5-10.1); CHLORIDE 112 MMOL/L (99-107); CREATININE 1.04 MG/DL (0.40-0.90); GLUCOSE 137 MG/DL (70-104); POTASSIUM 3.5 MMOL/L (3.5-5.1); SODIUM 145 MMOL/L (135-145); TOTAL CARBON DIOXIDE 18.7 MMOL/L (24-32); eGFR 56 ML/MIN
[2020-11-19] MEDS ORDERED: LIDOcaine 2% 10ml TOPICAL JELLY (Urojet) TP ONE (19:40)
[2020-11-19] MEDS ORDERED: MESSAGE TO PHARMACY PO ONE (20:00)
[2020-11-19] MEDS ORDERED: dextrose ORAL solution 15 GM/59 ML bottle PO PRN ×2 (20:00)
[2020-11-19] MEDS ORDERED: dextrose 50%-water 50ml dispensing syringe IV PRN ×2 (20:00)
[2020-11-19] MEDS ORDERED: glucagon, human recombinant 1mg kit SUBCUT PRN (20:00)
[2020-11-19] MEDS: insulin glargine (Lantus) pen - multi-dose SQ SCH (21:00)
--- NOTE | 2020-11-19 21:41 | NUR ---
BLADDER SCAN RESULTED IN 500CC RETENTION . MD AWARE , BROWN ORDER IN , OUTPUT OVER 700ML AT THIS TIME
[2020-11-19 22:00] VITALS: BP 92/54
--- NOTE | 2020-11-19 23:04 | NUR ---
PAGER ID: [phone] MESSAGE: [id number] ALEXANDER GUIDO GLUCOSE IS DROPPING TO 102 PATIENT IS TOLERATING SOME PO INTAKE INSULIN GTT IS AT 5MLS AND PATIENT IS RECIVEING D5W1/2NS W/ 20MEQ. CAN WE DECREASE THE INSULIN GTT PLEASE AND THANKS. ROBERTA AGUIRRE
[2020-11-19 23:45] LABS: ALBUMIN 2.6 G/DL (3.4-5.0); ANION GAP 10 (8-16); BLOOD UREA NITROGEN 21 MG/DL (7-18); BUN/CREATININE RATIO 22.1 (6.6-38.0); CALCIUM 8.1 MG/DL (8.5-10.1); CHLORIDE 112 MMOL/L (99-107); CREATININE 0.95 MG/DL (0.40-0.90); GLUCOSE 92 MG/DL (70-104); SODIUM 144 MMOL/L (135-145); eGFR 62 ML/MIN
[2020-11-20 00:08] LABS: ABG BASE EXCESS -5.7 mmol/L (-2.0-2.0); ABG HCO3 18.5 mmol/L (22.0-26.0); ABG OXYGEN SATURATION 97.1 % (94-97); ABG PCO2 (T) 31.5 mmHg (32.0-45.0); ABG PO2 (T) 86.4 mmHg (75.0-100.0); ALLEN'S TEST POSITIVE; FMetHb 0.4 % (0.0-1.5); FO2Hb 96.7 % (94-97); PATIENT TEMPERATURE 36.6; TOTAL HEMOGLOBIN 11.7 G/dl (12.0-16.0)
--- NOTE | 2020-11-20 00:16 | NUR ---
PAGER ID: [phone] MESSAGE: [id number] ALEXANDER GUIDO. BMP CAME BACK , PROTOCOL MEANT GLUCOSE IS 85. PLEASE CALL PCU [phone] FOR POC THANK YOU AGAIN ROBERTA AGUIRRE
--- NOTE | 2020-11-20 00:19 | NUR ---
PER DR. BUCHANAN . PROTOCOL MEANT . TURN OFF INSULIN GTT AND DC ALL IVF AT THIS TIME
[2020-11-20] MEDS: potassium Cl 20 mEq SR tablet PO PRN ×3 (00:33→08:44)
[2020-11-20 02:00] VITALS: BP 90/52
--- NOTE | 2020-11-20 02:21 | NUR ---
PAGER ID: [phone] MESSAGE: [phone]. ALEXANDER GUIDO , PATIENT IS 10/10 PAIN IN ABDOMEN . BP IS 90/52 OF NOW . SHE CAN TOKLERATE PO OF NOW. THANK YOU AGAIN ROBERTA AGUIRRE [phone]
[2020-11-20] MEDS ORDERED: morphine 2 MG/ML inj. syringe IV PRN (02:30)
[2020-11-20] MEDS: ondansetron/PF 4mg/2ml inj IV PRN ×2 (02:46→10:03)
[2020-11-20 04:34] VITALS: BP 105/77
[2020-11-20] MEDS: insulin Lispro (HumaLOG) vial - multi-dose SQ SCH ×5 (04:47→21:09)
--- NOTE | 2020-11-20 05:43 | NUR ---
PAGER ID: [phone] MESSAGE: [phone] HAY MUNOZ . SPOKE TO PATIENT AND PHARMACIST PATIENT DOES HAVE SIGNIFICANT ALLERGIES. INCLUDING PENICLLINS,CLINDAMYCIN, CEPHLAXIN AND SULFAMETHOXAZOLA, PHARMACISTS RECOMMENDED LEVEQUIN A SUBSTITUTE. THANK YOU AGAIN
--- NOTE | 2020-11-20 06:07 | NUR ---
Patient in room PCU 3018. I have received report from CARLA Taveras and had the opportunity to ask questions and assume patient care.
--- NOTE | 2020-11-20 06:25 | NUR ---
Patient in room PCU 3018. I have received report from Nitin AGUIRRE and had the opportunity to ask questions and assume patient care. Pt resting left side lying in bed, call light within reach, no s/sx acute distress
[2020-11-20 06:51] LABS: BASOPHILS % (AUTO) 0.4 % (0-1); EOSINOPHILS # (AUTO) 0.1 X10'3 (0-0.9); EOSINOPHILS % (AUTO) 1.1 % (0-6); HEMATOCRIT 34.8 % (35.0-45.0); HEMOGLOBIN 11.5 g/dl (12.0-16.0); LYMPHOCYTES # (AUTO) 1.7 X10'3 (1.1-4.8); LYMPHOCYTES % (AUTO) 20.3 % (21-51); MEAN CORPUSCULAR HEMOGLOBIN 28.8 PG (27.0-31.0); MEAN CORPUSCULAR VOLUME 87.4 FL (78-98); MEAN PLATELET VOLUME 9.1 FL (7.4-10.4); MONOCYTES # (AUTO) 0.4 X10'3 (0-0.9); MONOCYTES % (AUTO) 4.9 % (2-12); NEUTROPHILS # (AUTO) 6.1 X10'3 (1.8-7.7); NEUTROPHILS % (AUTO) 73.3 % (42-75); PLATELET COUNT 165 X10'3 (140-440); RED BLOOD COUNT 3.98 X10'6 (4.20-5.60); RED CELL DISTRIBUTION WIDTH 15.1 % (11.5-14.5); WHITE BLOOD COUNT 8.3 X10'3 (4.5-11.0)
[2020-11-20 07:00] VITALS: BP 104/51
[2020-11-20 07:11] LABS: ALBUMIN 2.6 G/DL (3.4-5.0); ANION GAP 12 (8-16); CALCIUM 8.1 MG/DL (8.5-10.1); CHLORIDE 107 MMOL/L (99-107); CREATININE 0.91 MG/DL (0.40-0.90); GLUCOSE 282 MG/DL (70-104); MAGNESIUM 1.4 MG/DL (1.5-2.4); POTASSIUM 3.8 MMOL/L (3.5-5.1); SODIUM 137 MMOL/L (135-145); TOTAL CARBON DIOXIDE 17.6 MMOL/L (24-32); eGFR 65 ML/MIN
[2020-11-20 07:51] LABS: BLOOD UREA NITROGEN 17 MG/DL (7-18); BUN/CREATININE RATIO 18.7 (6.6-38.0)
[2020-11-20] MEDS: levoFLOXACIN-Levaquin 500mg/D5 100 ML IV SCH (08:52)
[2020-11-20] MEDS: K and/or MAG REPLACEMENT MC SCH ×2 (08:52→20:57)
[2020-11-20 09:53] LABS: ABG BASE EXCESS -8.6 mmol/L (-2.0-2.0); ABG OXYGEN SATURATION 96.7 % (94-97); ABG PCO2 (T) 30.7 mmHg (32.0-45.0); ABG PO2 (T) 100.9 mmHg (75.0-100.0); ALLEN'S TEST POSITIVE; FCOHb 0.4 % (0.0-3.9); FMetHb 0.1 % (0.0-1.5); FO2Hb 96.2 % (94-97); TOTAL HEMOGLOBIN 12.6 G/dl (12.0-16.0)
[2020-11-20] MEDS ORDERED: pneumococcal 23-VAL P-sac vacc 25 mcg/0.5ml vial IMVAC ONE (10:00)
[2020-11-20] MEDS: magnesium Cl slow-release 64mg tablet PO PRN ×2 (10:03→20:59)
[2020-11-20] MEDS ORDERED: ondansetron 4mg rapidly disintigrating tab PO PRN (10:35)
[2020-11-20 11:00] VITALS: BP 92/54
[2020-11-20] MEDS: HYDROcodone/acetaminophen 10/325mg tab PO PRN ×2 (12:18→20:59)
[2020-11-20] MEDS: pregabalin 25mg capsule PO SCH ×2 (12:38→20:58)
--- NOTE | 2020-11-20 13:31 | NUR ---
Paged Dr Dkue PAGER ID: [phone] MESSAGE: Re Juana Ferrari [id number] Pt c/o nausea, no relief from Zofran, can she have Reglan? Thank you Louise [phone]
--- NOTE | 2020-11-20 14:27 | NUR ---
I have reviewed and agree with all medications administered and interventions performed by [facility] Student, Meaghan Wynn.
[2020-11-20 15:00] VITALS: BP 97/59
--- NOTE | 2020-11-20 15:35 | NUR ---
Paged Dr Duke regarding blood culture PAGER ID: [phone] MESSAGE: Juana Wong [id number] Micro called, Blood cultures are gram positive rods, NOT gram negative. A bacillus species, not a anthracis. Thank you Louise [phone]
--- NOTE | 2020-11-20 15:36 | NUR ---
DM consult: Pt with T1DM admit with DKA. A1c 12.1% (10/10/20). Pt last provided with written and verbal DM education by RUPINDER 07/22/20 with A1c 10.7% at that time. Pt would benefit from f/u education this visit. Pt on a CHO controlled diet documented with improving PO intake, initially with 25% PO intake up to 50-75% at two most recent meals. Noted that pt follows a soft diet at home and received chopped meat at last admit, d/w dietary to resume this admit. Pt agreed to double protein TID for satiety at last admit, will monitor PO intake this admit and need for additional protein for satiety. [facility] 11/19. Will continue to follow. Recommendations: 1) Continue CHO controlled diet 2) Soft to chew, chop meat; monitor PO trends and need for additional protein for satiety 3) Bowel care per rx 4) Scaled weights per rx Addendum: 11/20/20 at [address] Amended: Links added.
--- NOTE | 2020-11-20 18:00 | NUR ---
Orientee documentation: I have reviewed and agree with all interventions, assessments performed and documented by CARLA Burgess.
--- NOTE | 2020-11-20 18:00 | NUR ---
Orientee Medication Administration: For this medication-pass time frame, all medication were reviewed, dispensed, administered and documented per hospital policy by CARLA Burgess.
--- NOTE | 2020-11-20 18:11 | NUR ---
Problems reprioritized. Patient report given, questions answered & plan of care reviewed with CARLA Leong.
[2020-11-20] MEDS: lactobacillus rhamnosus 10,000 MMU CELLS/CAPSULE PO SCH (19:07)
[2020-11-20] MEDS: apixaban 5mg tablet PO SCH (19:07)
--- NOTE | 2020-11-20 19:26 | NUR ---
Critical Lab Per Mary Ellen in Lab: Juana Ferrari [id number] Gram positive rods growing in aerobic bottle drawn 11/19/20 @1226 from the left hand. Called Dr Fernandez w/results-Pt on Levaquin 500mg
[2020-11-20] MEDS: budesonide 0.5mg/2ml UD nebule IH SCH (19:37)
[2020-11-20 20:35] LABS: BASOPHILS # (AUTO) 0.1 X10'3 (0-0.2); EOSINOPHILS # (AUTO) 0.1 X10'3 (0-0.9); EOSINOPHILS % (AUTO) 1.6 % (0-6); HEMATOCRIT 35.4 % (35.0-45.0); HEMOGLOBIN 11.5 g/dl (12.0-16.0); LYMPHOCYTES # (AUTO) 2.4 X10'3 (1.1-4.8); LYMPHOCYTES % (AUTO) 33.1 % (21-51); MEAN CORPUSCULAR HEMOGLOBIN 28.5 PG (27.0-31.0); MEAN CORPUSCULAR HGB CONC 32.6 g/dL (33.0-36.5); MEAN CORPUSCULAR VOLUME 87.5 FL (78-98); MEAN PLATELET VOLUME 9.1 FL (7.4-10.4); MONOCYTES # (AUTO) 0.4 X10'3 (0-0.9); MONOCYTES % (AUTO) 5.7 % (2-12); NEUTROPHILS # (AUTO) 4.2 X10'3 (1.8-7.7); NEUTROPHILS % (AUTO) 58.6 % (42-75); PLATELET COUNT 145 X10'3 (140-440); RED BLOOD COUNT 4.05 X10'6 (4.20-5.60); RED CELL DISTRIBUTION WIDTH 15.1 % (11.5-14.5); WHITE BLOOD COUNT 7.2 X10'3 (4.5-11.0)
[2020-11-20] MEDS ORDERED: insulin glargine (Lantus) pen - multi-dose SQ SCH (21:00)
[2020-11-20] MEDS ORDERED: PARoxetine 20mg tablet PO SCH (21:00)
[2020-11-20] MEDS ORDERED: atorvastatin 20mg tablet PO SCH (21:00)
[2020-11-20] MEDS: insulin glargine (Lantus) pen - multi-dose SQ SCH (21:00)
[2020-11-21] MEDS: metroNIDAZOLE-Flagyl 500mg/NS 100 ML IV SCH ×3 (00:02→17:49)
[2020-11-21] MEDS: HYDROcodone/acetaminophen 10/325mg tab PO PRN ×2 (04:49→12:24)
--- NOTE | 2020-11-21 06:10 | NUR ---
Problems reprioritized. Patient report given, questions answered & plan of care reviewed with CARLA Gil.
--- NOTE | 2020-11-21 06:12 | NUR ---
Patient in room PCU 3018. I have received report from CARLA Leong and had the opportunity to ask questions and assume patient care.
[2020-11-21 07:00] VITALS: BP 120/78
[2020-11-21 07:02] LABS: BASOPHILS # (AUTO) 0.1 X10'3 (0-0.2); BASOPHILS % (AUTO) 0.9 % (0-1); EOSINOPHILS # (AUTO) 0.1 X10'3 (0-0.9); EOSINOPHILS % (AUTO) 1.9 % (0-6); HEMATOCRIT 34.9 % (35.0-45.0); HEMOGLOBIN 11.7 g/dl (12.0-16.0); LYMPHOCYTES # (AUTO) 2.3 X10'3 (1.1-4.8); LYMPHOCYTES % (AUTO) 36.7 % (21-51); MEAN CORPUSCULAR HEMOGLOBIN 28.8 PG (27.0-31.0); MEAN CORPUSCULAR HGB CONC 33.5 g/dL (33.0-36.5); MEAN CORPUSCULAR VOLUME 85.8 FL (78-98); MEAN PLATELET VOLUME 8.9 FL (7.4-10.4); MONOCYTES # (AUTO) 0.4 X10'3 (0-0.9); MONOCYTES % (AUTO) 6.8 % (2-12); NEUTROPHILS # (AUTO) 3.4 X10'3 (1.8-7.7); NEUTROPHILS % (AUTO) 53.7 % (42-75); PLATELET COUNT 137 X10'3 (140-440); RED BLOOD COUNT 4.07 X10'6 (4.20-5.60); RED CELL DISTRIBUTION WIDTH 15.2 % (11.5-14.5); WHITE BLOOD COUNT 6.3 X10'3 (4.5-11.0)
[2020-11-21 07:15] LABS: ALBUMIN 2.7 G/DL (3.4-5.0); ANION GAP 6 (8-16); BLOOD UREA NITROGEN 10 MG/DL (7-18); BUN/CREATININE RATIO 16.7 (6.6-38.0); CALCIUM 8.4 MG/DL (8.5-10.1); CHLORIDE 104 MMOL/L (99-107); GLUCOSE 235 MG/DL (70-104); MAGNESIUM 1.6 MG/DL (1.5-2.4); POTASSIUM 4.2 MMOL/L (3.5-5.1); SODIUM 137 MMOL/L (135-145); TOTAL CARBON DIOXIDE 26.8 MMOL/L (24-32); eGFR > 90 ML/MIN
[2020-11-21] MEDS ORDERED: aspirin 81mg tablet.DR PO SCH (08:00)
[2020-11-21] MEDS ORDERED: pantoprazole 40mg Tablet.DR PO SCH (08:00)
[2020-11-21] MEDS ORDERED: duloxetine 30mg CAPSULE.DR PO SCH (08:00)
[2020-11-21] MEDS ORDERED: lisinopril 2.5mg tablet PO SCH (08:00)
[2020-11-21] MEDS: K and/or MAG REPLACEMENT MC SCH (08:00)
[2020-11-21] MEDS: lactobacillus rhamnosus 10,000 MMU CELLS/CAPSULE PO SCH (09:01)
[2020-11-21] MEDS: apixaban 5mg tablet PO SCH (09:02)
[2020-11-21] MEDS: pregabalin 25mg capsule PO SCH ×2 (09:03→13:18)
[2020-11-21] MEDS: levoFLOXACIN-Levaquin 500mg/D5 100 ML IV SCH (09:04)
[2020-11-21] MEDS: insulin Lispro (HumaLOG) vial - multi-dose SQ SCH ×2 (09:21→13:27)
[2020-11-21] MEDS: budesonide 0.5mg/2ml UD nebule IH SCH (09:56)
--- NOTE | 2020-11-21 11:47 | NUR ---
Paged Dr Duke regarding critical lactic PAGER ID: [phone] MESSAGE: Juana Wong [id number] Critical Lactic Acid 4.8 Thanks Louise Huitron [phone]
[2020-11-21] MEDS ORDERED: normal saline 500ml IV soln 500 ML IV ONE (12:00)
--- NOTE | 2020-11-21 14:12 | NUR ---
Paged Dr Duke PAGER ID: [phone] MESSAGE: Juana Wong [id number] Newest Lactic 2.8 and ProcaL 0.15. Are you going to finish the discharge? Thank you Louise Huitron
[2020-11-21] MEDS ORDERED: LISI10TA27 PO (14:46)
[2020-11-21] MEDS ORDERED: LEVO500T89 PO (14:48)
[2020-11-21 15:00] VITALS: BP 119/86
--- NOTE | 2020-11-21 15:44 | NUR ---
F/u: Pt seen at bedside for written and verbal DM education. Pt states she still has a CGM that is working though reports just receiving a new insulin pump a couple of days ago that she has been unable to get set up. Pt reports she still has her old insulin pump however has been having issues with it recently with it shutting off often and not providing the accurate amount of insulin to carb ratio. Pt reports BG levels in the 200s or 400s two hours postprandial despite receiving insulin. RD encouraged pt to f/u with PCP regarding med rx and insulin pump issues. Pt states she has ketone test strips available. Pt provided with RD contact information and encouraged to reach out for further questions. Pt endorses a good appetite and requests double protein TID and gravy on meat, d/w dietary. Pt agrees to soft to chew foods and chop meat TID. Will continue to follow. Addendum: 11/21/20 at [address] Amended: Links added.
--- NOTE | 2020-11-21 16:22 | NUR ---
I have reviewed and agree with all medications administered and interventions performed by [facility] Student, Meaghan Wynn.
--- NOTE | 2020-11-21 18:12 | NUR ---
Problems reprioritized. Patient report given, questions answered & plan of care reviewed with CARLA Pollock. Patient ready for discharge, waiting for ride. Informed RN that pt still has PIV and Tele monitor on.
--- NOTE | 2020-11-21 18:12 | NUR ---
Orientee Medication Administration: For this medication-pass time frame, all medication were reviewed, dispensed, administered and documented per hospital policy by CARLA Burgess.
--- NOTE | 2020-11-21 18:12 | NUR ---
Orientee documentation: I have reviewed and agree with all interventions, assessments performed and documented by CARLA Burgess.
--- NOTE | 2020-11-21 20:45 | NUR ---
Pt is stable to be discharged per MD. Discharged packets and instructions were given to pt. Pt. verbalized understanding. Tele monitor and IV access are discontinued, and all pt's belongings are with the pt. She was wheeled down to the lobby by the staff and was picked up by [facility] tow motor driver to be taken to [facility] [place].
[2020-11-22] MEDS ORDERED: levoFLOXACIN 500mg tablet PO SCH (11:00)
== END 2020-11-21 20:40 | disposition home or self-care (01) | DRG 420 ==
LOC: ER 06:15 → ED HOLD 10:47 → PCU 3S 15:40
PROVIDERS: ADMIT Internal Medicine; ATTEND Internal Medicine
DX: E10.10 Type 1 diabetes mellitus with ketoacidosis without coma (principal); D72.829 Elevated white blood cell count, unspecified; E78.00 Pure hypercholesterolemia, unspecified; E78.5 Hyperlipidemia, unspecified; E87.5 Hyperkalemia; F32.9 Major depressive disorder, single episode, unspecified; G89.4 Chronic pain syndrome; I11.0 Hypertensive heart disease with heart failure; I48.91 Unspecified atrial fibrillation; Z96.41 Presence of insulin pump (external) (internal); F41.9 Anxiety disorder, unspecified; M25.511 Pain in right shoulder; I50.9 Heart failure, unspecified; J45.909 Unspecified asthma, uncomplicated; K21.9 Gastro-esophageal reflux disease without esophagitis; M81.0 Age-related osteoporosis without current pathological fracture; Z79.01 Long term (current) use of anticoagulants; Z79.4 Long term (current) use of insulin; Z85.41 Personal history of malignant neoplasm of cervix uteri; Z90.710 Acquired absence of both cervix and uterus; Z88.0 Allergy status to penicillin; Z88.2 Allergy status to sulfonamides; Z88.8 Allergy status to other drugs, medicaments and biological substances; Z90.49 Acquired absence of other specified parts of digestive tract
CPT/HCPCS: 36415; 36600; 71045; 80048; 80053; 81001; 81025; 82009; 82803; 82948; 83605; 83690; 83735; 84100; 84145; 84484; 85018; 85025; 87040; 87081; 90732; 93005; 94640; 94760; 96361; 96365; 96375; 97110; 97116; 97162; 99285; G0378; J1815; J1885; J1956; J2270; J2405; J3480; J3490; J7030; J7040; J7042; J7626; J8597

== ENCOUNTER 2020-11-30 20:04 | Inpatient (IN) | payer MEDICAID ==
[~2020-11-30] VITALS: Ht 170.2 cm; Wt 64.5 kg
[~2020-11-30 20:04] MED LIST changes: -ALBU6.7H9 INH; +ALBU90AE IH; +BECL10.6 IH; -BECL7.3A INH; -BLOO-122 METER; +CALC-1260 PO; -CALC1TAB PO; +DIAZ2TAB4 PO; -INSU100V11 SQ; +INSU100V43 SQ; +LANTUS SQ; +LISI10TA27 PO; -LISI2.5T2 PO; +PARO20TA6 PO; -PARO25TA3 PO; +PREG100C PO; -PREG100C55 PO
[2020-11-30] MEDS ORDERED: normal saline 1000ml 1,000 ML IV ONE (20:35)
[2020-11-30] MEDS ORDERED: ondansetron/PF 4mg/2ml inj IV ONE (20:35)
--- NOTE | 2020-11-30 20:50 | NUR ---
PT ACCUCHECK READ HIGH NOTIFIED ANDREW FREY . PT BOLUS COMPLETE RT AT BEDSIDE FOR BLOOD GASES
[2020-11-30 20:59] LABS: ABG BASE EXCESS -25.1 mmol/L (-2.0-2.0); ABG HCO3 2.8 mmol/L (22.0-26.0); ABG OXYGEN SATURATION 97.9 % (94-97); ABG PCO2 (T) < 10.0 mmHg (32.0-45.0); ABG PO2 (T) 128.7 mmHg (75.0-100.0); ALLEN'S TEST Modified; FCOHb 0.5 % (0.0-3.9); FMetHb 0.4 % (0.0-1.5); PATIENT TEMPERATURE 36.4; TOTAL HEMOGLOBIN 15.3 G/dl (12.0-16.0)
[2020-11-30 21:02] LABS: BASOPHILS # (AUTO) 0.1 X10'3 (0-0.2); BASOPHILS % (AUTO) 0.8 % (0-1); EOSINOPHILS % (AUTO) 0 % (0-6); HEMATOCRIT 51.1 % (35.0-45.0); LYMPHOCYTES # (AUTO) 1.2 X10'3 (1.1-4.8); LYMPHOCYTES % (AUTO) 11.9 % (21-51); MEAN CORPUSCULAR VOLUME 94.4 FL (78-98); MONOCYTES # (AUTO) 0.4 X10'3 (0-0.9); MONOCYTES % (AUTO) 3.8 % (2-12); NEUTROPHILS # (AUTO) 8.7 X10'3 (1.8-7.7); NEUTROPHILS % (AUTO) 83.5 % (42-75); PLATELET COUNT 394 X10'3 (140-440); RED CELL DISTRIBUTION WIDTH 16.7 % (11.5-14.5); WHITE BLOOD COUNT 10.4 X10'3 (4.5-11.0)
[2020-11-30] MEDS ORDERED: insulin regular, human U-100 3ml vial - multi-dose IV PRN (21:05)
[2020-11-30] MEDS ORDERED: sodium bicarbonate (8.4%) inj. 50 MEQ in dextrose 5% water 500ml 250 ML IV PRN ×2 (21:05→22:35)
[2020-11-30] MEDS ORDERED: sodium phosphate inj. 30 MMOL in dextrose 5%-water 250 ML IV PRN ×2 (21:05→22:35)
[2020-11-30] MEDS ORDERED: sodium bicarbonate (8.4%) 1 mEq/ml syringe IV ONE ×2 (21:05→22:05)
[2020-11-30] MEDS ORDERED: potassium CL 20mEq in D5-1/2NS 1,000 ML IV PRN (21:05)
[2020-11-30] MEDS ORDERED: sodium phosphate inj. 15 MMOL in dextrose 5%-water 250 ML IV PRN ×2 (21:05→22:35)
[2020-11-30] MEDS ORDERED: Neutra Phos packet PO PRN ×2 (21:05→22:35)
[2020-11-30] MEDS ORDERED: potassium Cl 40MEQ/1/2NS 520ml 520 ML IV PRN ×4 (21:05→22:35)
[2020-11-30] MEDS ORDERED: potassium Cl 20 mEq SR tablet PO PRN ×6 (21:05→22:35)
[2020-11-30] MEDS ORDERED: sodium bicarbonate (8.4%) inj. 150 MEQ in dextrose 5%-water 1,000 ML IV SCH ×2 (21:05→22:20)
[2020-11-30] MEDS ORDERED: sodium bicarbonate (8.4%) inj. 1 MEQ/ML ML IV ONE (21:05)
[2020-11-30 21:14] LABS: ALANINE AMINOTRANSFERASE 30 U/L (12-78); ALBUMIN/GLOBULIN RATIO 0.9 (1.1-1.5); ALKALINE PHOSPHATASE 140 IU/L (46-116); ANION GAP 31 (8-16); ASPARTATE AMINO TRANSFERASE 13 U/L (10-37); BILIRUBIN,TOTAL 0.5 MG/DL (0.1-1.0); BLOOD UREA NITROGEN 30 MG/DL (7-18); BUN/CREATININE RATIO 16.5 (6.6-38.0); CALCIUM 9.1 MG/DL (8.5-10.1); CHLORIDE 86 MMOL/L (99-107); CREATININE 1.82 MG/DL (0.40-0.90); LIPASE 69 U/L (73-393); PHOSPHORUS 7.7 MG/DL (2.3-4.5); SODIUM 124 MMOL/L (135-145); TOTAL PROTEIN 8.3 G/DL (6.4-8.2); eGFR 29 ML/MIN
[2020-11-30] MEDS: normal saline 1000ml 1,000 ML IV SCH ×3 (21:17→22:34)
[2020-11-30 21:25] LABS: HEMOGLOBIN 16.2 g/dl (12.0-16.0); MEAN CORPUSCULAR HEMOGLOBIN 29.1 PG (27.0-31.0); MEAN CORPUSCULAR HGB CONC 33.7 g/dL (33.0-36.5); RED BLOOD COUNT 5.57 X10'6 (4.20-5.60)
[2020-11-30 21:36] LABS: GLUCOSE 776 MG/DL (70-104); POTASSIUM 6.1 MMOL/L (3.5-5.1)
[2020-11-30 21:37] LABS: TOTAL CARBON DIOXIDE 6.9 MMOL/L (24-32)
--- NOTE | 2020-11-30 21:43 | NUR ---
Pts insulin pump turned off now.
[2020-11-30 21:44] LABS: MAGNESIUM 2.4 MG/DL (1.5-2.4)
[2020-11-30] MEDS ORDERED: morphine 4 MG/ML inj SYRINge IV ONE (21:45)
--- NOTE | 2020-11-30 21:45 | NUR ---
PT UNPLUGGED HER INSULIN PUMP "THATS HOW YOU TURN IT OFF."
[2020-11-30 21:58] LABS: CLARITY,URINE CLEAR (Clear); COLOR,URINE YELLOW (Yellow); GLUCOSE, URINE >=1000 mg/dl (Neg); KETONES,URINE >=80 mg/dl (Neg); LEUKOCYTE ESTERASE ,URINE NEGATIVE (Neg); NITRITES, URINE NEGATIVE (Neg); OCCULT BLOOD,URINE TRACE-INTACT (Neg); PH,URINE 5.5 (4.8-8.0); PROTEIN,URINE TRACE mg/dl (Neg); UROBILINOGEN,URINE 0.2 E.U/dL (0.2-1.0)
[2020-11-30 22:08] LABS: UA COLLECTION TYPE STRAIGHT CATH
[2020-11-30 22:09] LABS: BACTERIA,URINE FEW /HPF (Neg); RBC,URINE NONE SEEN /HPF (0-2); SQUAMOUS EPITHELIAL CELL,UR FEW /LPF (FEW); WBC,URINE NONE SEEN /HPF (0-4)
[2020-11-30 22:10] LABS: URINE AMPHETAMINE SCREEN NEGATIVE (Neg); URINE BARBITUATE SCREEN NEGATIVE (Neg); URINE BENZODIAZEPINES SCREEN NEGATIVE (Neg); URINE CANNABINOID SCREEN NEGATIVE (Neg); URINE COCAINE SCREEN NEGATIVE (Neg); URINE METHADONE SCREEN NEGATIVE (Neg); URINE OPIATE SCREEN NEGATIVE (Neg); URINE PHENCYCLIDINE SCREEN NEGATIVE (Neg)
[2020-11-30] MEDS: Insulin Reg/NS 100units/100mL 100 ML IV SCH (22:10)
--- NOTE | 2020-11-30 22:13 | NUR ---
CLARIFIED WITH NABIL AND DR CERON, THEY WANT BICARB PUSHES AND GTT Addendum: 12/01/20 at 0009 by JONES CLARIFIED WITH NABIL AND DR CERON, THEY WANT BICARB PUSHES (two amps) AND GTT as mixed per pharmacy. Dr. Ceron spoke with pharmacist himself.
[2020-11-30] MEDS: K, MAG and/or Phos replacement - Verify level? MC SCH (22:35)
[2020-11-30] MEDS ORDERED: Insulin Reg/NS 100units/100mL 100 ML IV SCH (22:35)
[2020-11-30] MEDS ORDERED: dextrose ORAL solution 15 GM/59 ML bottle PO PRN ×2 (22:35)
[2020-11-30] MEDS ORDERED: MESSAGE TO PHARMACY PO ONE (22:35)
[2020-11-30] MEDS ORDERED: acetaminophen 325mg tablet PO PRN ×2 (22:35)
[2020-11-30] MEDS ORDERED: glucagon, human recombinant 1mg kit SUBCUT PRN (22:35)
[2020-11-30] MEDS ORDERED: sodium bicarbonate (8.4%) inj. 100 MEQ in dextrose 5% water 500ml 500 ML IV PRN (22:35)
[2020-11-30] MEDS ORDERED: dextrose 50%-water 50ml dispensing syringe IV PRN ×2 (22:35)
[2020-11-30] MEDS ORDERED: ondansetron/PF 4mg/2ml inj IV PRN (22:35)
[2020-11-30] MEDS ORDERED: magnesium hydroxide 30ml (MOM) UD suspension PO PRN (22:35)
[2020-11-30] MEDS ORDERED: morphine 2 MG/ML inj. syringe IV PRN (22:35)
--- NOTE | 2020-11-30 23:33 | NUR ---
Dr. Garcia paged and notified of pt situation, gtt settings and current CBG. MD wants me to give 10 units of IV insulin regular and double infusion rate now. Will get another ABG and see if BICARB gtt needs to be continued. RN to call MD with ABG
[2020-11-30] MEDS ORDERED: insulin regular, human U-100 3ml vial - multi-dose SQ SCH (23:40)
[2020-11-30] MEDS ORDERED: sodium bicarbonate (8.4%) inj. 150 MEQ in dextrose 5%-water 1,000 ML IV PRN (23:40)
[2020-11-30 23:50] LABS: ABG HCO3 4.3 mmol/L (22.0-26.0); ABG OXYGEN SATURATION 97.7 % (94-97); ABG PCO2 (T) 13.6 mmHg (32.0-45.0); ABG PO2 (T) 112.3 mmHg (75.0-100.0); ALLEN'S TEST POSITIVE; FCOHb 0.2 % (0.0-3.9); FMetHb 0.3 % (0.0-1.5); FO2Hb 97.2 % (94-97); PATIENT TEMPERATURE 36.5; TOTAL HEMOGLOBIN 14.7 G/dl (12.0-16.0)
--- NOTE | 2020-11-30 23:56 | NUR ---
Dr Garcia called and notified of ABG, we will stop the BICARB gtt now.
[2020-12-01] VITALS (27 sets, daily range): BP systolic 82–117; BP diastolic 43–74
--- NOTE | 2020-12-01 00:02 | NUR ---
BMP AND REPEAT TROP DRAWN NOW
[2020-12-01] MEDS: morphine 4 MG/ML inj SYRINge IV PRN ×4 (00:37→21:49)
[2020-12-01 00:43] LABS: ANION GAP 23 (8-16); BLOOD UREA NITROGEN 25 MG/DL (7-18); BUN/CREATININE RATIO 18.4 (6.6-38.0); CALCIUM 7.5 MG/DL (8.5-10.1); CHLORIDE 99 MMOL/L (99-107); CREATININE 1.36 MG/DL (0.40-0.90); SODIUM 134 MMOL/L (135-145); eGFR 41 ML/MIN
[2020-12-01 01:10] LABS: GLUCOSE 562 MG/DL (70-104)
[2020-12-01 01:11] LABS: POTASSIUM 4.4 MMOL/L (3.5-5.1)
[2020-12-01] MEDS: normal saline 1000ml 1,000 ML IV SCH (01:11)
--- NOTE | 2020-12-01 04:27 | NUR ---
Blood sugar 141, protocol says to keep between 150-200. D5.45 infusion increased to 200 ml/hr.
[2020-12-01 04:50] LABS: ANION GAP 13 (8-16); BLOOD UREA NITROGEN 21 MG/DL (7-18); BUN/CREATININE RATIO 18.6 (6.6-38.0); CALCIUM 7.8 MG/DL (8.5-10.1); CHLORIDE 106 MMOL/L (99-107); CREATININE 1.13 MG/DL (0.40-0.90); GLUCOSE 143 MG/DL (70-104); PHOSPHORUS 2.9 MG/DL (2.3-4.5); POTASSIUM 3.7 MMOL/L (3.5-5.1); SODIUM 139 MMOL/L (135-145); TOTAL CARBON DIOXIDE 20.1 MMOL/L (24-32); eGFR 51 ML/MIN
[2020-12-01] MEDS: dextrose 5%-1/2 normal saline 1,000 ML IV SCH ×2 (05:22→07:35)
[2020-12-01] MEDS: K and/or MAG REPLACEMENT MC SCH ×2 (06:28→19:31)
[2020-12-01] MEDS: K, MAG and/or Phos replacement - Verify level? MC SCH (07:02)
[2020-12-01] MEDS ORDERED: K and/or MAG REPLACEMENT MC SCH (08:00)
[2020-12-01] MEDS ORDERED: LISI-643 PO (09:18)
--- NOTE | 2020-12-01 09:18 | NUR ---
Blood sugar 98 t his am, increased D5 to 250. Next sugar was 96, called Dr. Ling. He said he will be here in 10 minutes. Blood sugar at 0900 is 88, per Dr. Ling decreased insulin to 1unit, he said he will look at pt's chart first before more orders.
[2020-12-01 11:02] LABS: ANION GAP 10 (8-16); BLOOD UREA NITROGEN 17 MG/DL (7-18); BUN/CREATININE RATIO 17.9 (6.6-38.0); CHLORIDE 106 MMOL/L (99-107); CREATININE 0.95 MG/DL (0.40-0.90); GLUCOSE 91 MG/DL (70-104); PHOSPHORUS 2.3 MG/DL (2.3-4.5); POTASSIUM 3.6 MMOL/L (3.5-5.1); SODIUM 138 MMOL/L (135-145); TOTAL CARBON DIOXIDE 22.4 MMOL/L (24-32); eGFR 62 ML/MIN
[2020-12-01] MEDS ORDERED: insulin glargine (Lantus) pen - multi-dose SQ ONE ×2 (11:10→21:00)
[2020-12-01] MEDS ORDERED: dextrose 50%-water 50ml dispensing syringe IV PRN ×4 (11:10→17:30)
[2020-12-01] MEDS ORDERED: MESSAGE TO PHARMACY PO ONE (11:10)
[2020-12-01] MEDS ORDERED: dextrose ORAL solution 15 GM/59 ML bottle PO PRN ×4 (11:10→17:30)
[2020-12-01] MEDS ORDERED: glucagon, human recombinant 1mg kit SUBCUT PRN ×2 (11:10→17:30)
--- NOTE | 2020-12-01 12:02 | NUR ---
Recent admit from 11/19-11/21 with DKA. Presented with c/o n/v since morning of admission, reports not checking BG level, first BG was 776 mg/dl. Pt is a frequently admitted with DKA and other DM related complications. Was seen by RD last admission for written and verbal DM education, at that time it was documented that "Pt states she still has a CGM that is working though reports just receiving a new insulin pump a couple of days ago that she has been unable to get set up. Pt reports she still has her old insulin pump however has been having issues with it recently with it shutting off often and not providing the accurate amount of insulin to carb ratio. Pt reports BG levels in the 200s or 400s two hours postprandial despite receiving insulin. RD encouraged pt to f/u with PCP regarding med rx and insulin pump issues. Pt states she has ketone test strips available. Pt provided with RD contact information and encouraged to reach out for further questions. Pt endorses a good appetite and requests double protein TID and gravy on meat, d/w dietary." Dietary was notified of pt request. No indication for further RD education at this time. Recommend: 1. continue carb controlled diet 2. double protein and gravy with meat 3. bowel care as needed 4. weight per rx Addendum: 12/01/20 at [address] Amended: Links added.
--- NOTE | 2020-12-01 13:30 | NUR ---
Per Dr. Ling stopped D5 and insulin drip. Gave 9units if Lantus SQ, and started pt on Carb control diet and hyperglycemic protocol. Last BG was 130, Pt's own insulin pump has no charged.
[2020-12-01] MEDS ORDERED: HYDR25TA4 PO (14:00)
[2020-12-01] MEDS ORDERED: POTA10TA36 PO (14:00)
--- NOTE | 2020-12-01 14:00 | NUR ---
Blood culture result reported to Dr. Ling. No new orders.
[2020-12-01] MEDS: Insulin Reg/NS 100units/100mL 100 ML IV SCH (15:00)
[2020-12-01] MEDS ORDERED: ondansetron 4mg rapidly disintigrating tab PO PRN (16:40)
[2020-12-01] MEDS ORDERED: traZODone 50mg tablet PO PRN (16:40)
[2020-12-01] MEDS ORDERED: diazepam 2mg tablet PO PRN (16:40)
[2020-12-01] MEDS ORDERED: non-formulary drug (Alendronate Sodium 1 TABLET) PO SCH (16:40)
[2020-12-01] MEDS ORDERED: albuterol 2.5 MG/3 ML nebule NEB PRN (16:50)
[2020-12-01] MEDS ORDERED: insulin Lispro (HumaLOG) vial - multi-dose SQ SCH (17:30)
[2020-12-01] MEDS: insulin Lispro (HumaLOG) vial - multi-dose SQ SCH ×2 (17:43→20:00)
--- NOTE | 2020-12-01 17:49 | NUR ---
Blood sugar 353, called Dr. Ling, pt's insulin pump does not work. Started pt on hyperglycemia protocol, Gave her correctional dose. Will ask the hourly shift RN to recheck blood sugar in one hour.
--- NOTE | 2020-12-01 18:15 | NUR ---
Problems reprioritized. Patient report given, questions answered & plan of care reviewed with Carmine. Told him that i gave the correctional dose and to recheck blood sugar at 1830.
[2020-12-01] MEDS: HYDROcodone/acetaminophen 10/325mg tab PO PRN (19:21)
[2020-12-01] MEDS: apixaban 5mg tablet PO SCH (19:21)
[2020-12-01] MEDS: calcium carbonate 500mg tablet PO SCH (19:22)
[2020-12-01] MEDS: budesonide 0.5mg/2ml UD nebule IH SCH (19:45)
[2020-12-01] MEDS ORDERED: enoxaparin 40mg/0.4ml syringe SQ SCH (20:00)
[2020-12-01] MEDS ORDERED: insulin glargine (Lantus) pen - multi-dose SQ SCH (21:00)
[2020-12-01] MEDS: pregabalin 25mg capsule PO SCH (21:47)
[2020-12-01] MEDS: amitriptyline 10mg tablet PO SCH (21:47)
[2020-12-01] MEDS: PARoxetine 20mg tablet PO SCH (21:48)
[2020-12-01] MEDS: atorvastatin 10mg tablet PO SCH (21:48)
[2020-12-02] VITALS (19 sets, daily range): BP systolic 84–131; BP diastolic 45–71
[2020-12-02] MEDS: morphine 4 MG/ML inj SYRINge IV PRN (05:04)
--- NOTE | 2020-12-02 06:10 | NUR ---
Patient in room CICU 2014. I have received report from Carmine AGUIRRE and had the opportunity to ask questions and assume patient care.
[2020-12-02] MEDS: K and/or MAG REPLACEMENT MC SCH ×2 (07:32→20:00)
[2020-12-02 07:48] LABS: BASOPHILS % (AUTO) 0.7 % (0-1); EOSINOPHILS # (AUTO) 0.2 X10'3 (0-0.9); EOSINOPHILS % (AUTO) 2.6 % (0-6); HEMATOCRIT 37.2 % (35.0-45.0); HEMOGLOBIN 12.4 g/dl (12.0-16.0); LYMPHOCYTES # (AUTO) 2.2 X10'3 (1.1-4.8); LYMPHOCYTES % (AUTO) 35.3 % (21-51); MEAN CORPUSCULAR HEMOGLOBIN 28.9 PG (27.0-31.0); MEAN CORPUSCULAR HGB CONC 33.4 g/dL (33.0-36.5); MEAN CORPUSCULAR VOLUME 86.4 FL (78-98); MEAN PLATELET VOLUME 8.7 FL (7.4-10.4); MONOCYTES # (AUTO) 0.4 X10'3 (0-0.9); MONOCYTES % (AUTO) 6.7 % (2-12); NEUTROPHILS # (AUTO) 3.4 X10'3 (1.8-7.7); NEUTROPHILS % (AUTO) 54.7 % (42-75); PLATELET COUNT 182 X10'3 (140-440); RED CELL DISTRIBUTION WIDTH 15.3 % (11.5-14.5); WHITE BLOOD COUNT 6.2 X10'3 (4.5-11.0)
[2020-12-02] MEDS: HYDROchlorothiazide 25mg tablet PO SCH (08:00)
[2020-12-02] MEDS: lisinopril 10 MG tablet PO SCH (08:00)
[2020-12-02] MEDS: pregabalin 25mg capsule PO SCH ×3 (08:08→19:56)
[2020-12-02] MEDS: pantoprazole 40mg Tablet.DR PO SCH (08:08)
[2020-12-02] MEDS: potassium chloride 10mEq ER tablet PO SCH (08:08)
[2020-12-02] MEDS: aspirin 81mg tablet.DR PO SCH (08:08)
[2020-12-02] MEDS: apixaban 5mg tablet PO SCH ×2 (08:09→19:57)
[2020-12-02] MEDS: calcium carbonate 500mg tablet PO SCH ×2 (08:12→19:55)
[2020-12-02 08:36] LABS: ALANINE AMINOTRANSFERASE 23 U/L (12-78); ALBUMIN 2.8 G/DL (3.4-5.0); ALKALINE PHOSPHATASE 85 IU/L (46-116); ANION GAP 7 (8-16); ASPARTATE AMINO TRANSFERASE 13 U/L (10-37); BILIRUBIN,TOTAL 0.4 MG/DL (0.1-1.0); BLOOD UREA NITROGEN 8 MG/DL (7-18); CALCIUM 8.2 MG/DL (8.5-10.1); CHLORIDE 102 MMOL/L (99-107); CREATININE 0.73 MG/DL (0.40-0.90); GLUCOSE 70 MG/DL (70-104); MAGNESIUM 1.8 MG/DL (1.5-2.4); PHOSPHORUS 2.3 MG/DL (2.3-4.5); POTASSIUM 3.7 MMOL/L (3.5-5.1); SODIUM 133 MMOL/L (135-145); TOTAL CARBON DIOXIDE 23.9 MMOL/L (24-32); TOTAL PROTEIN 5.6 G/DL (6.4-8.2); eGFR 84 ML/MIN
[2020-12-02] MEDS: budesonide 0.5mg/2ml UD nebule IH SCH ×2 (08:48→20:07)
[2020-12-02] MEDS: insulin Lispro (HumaLOG) vial - multi-dose SQ SCH ×3 (08:57→18:40)
[2020-12-02] MEDS: HYDROcodone/acetaminophen 10/325mg tab PO PRN ×2 (09:46→17:40)
--- NOTE | 2020-12-02 14:16 | NUR ---
Problems reprioritized. Patient report given, questions answered & plan of care reviewed with Lulu AGUIRRE.
--- NOTE | 2020-12-02 18:00 | NUR ---
Patient in room PCU 3014. I have received report from Lulu AGUIRRE and had the opportunity to ask questions and assume patient care.
--- NOTE | 2020-12-02 18:25 | NUR ---
Patient in room PCU 3014. I have received report from Lulu AGUIRRE and had the opportunity to ask questions and assume patient care.
--- NOTE | 2020-12-02 18:36 | NUR ---
Problems reprioritized. Patient report given, questions answered & plan of care reviewed with Ginna AGUIRRE.
[2020-12-02] MEDS: PARoxetine 20mg tablet PO SCH (19:57)
[2020-12-02] MEDS: atorvastatin 10mg tablet PO SCH (19:57)
[2020-12-02] MEDS: amitriptyline 10mg tablet PO SCH (19:57)
[2020-12-02] MEDS ORDERED: insulin glargine (Lantus) pen - multi-dose SQ SCH (21:00)
--- NOTE | 2020-12-02 21:10 | NUR ---
Lantus Patient had new order for Lantus 25 units HS, usually only takes 18 units at home and verbalized not wanting to take [address] Dave was called to change the order to 18 units. However, he wanted to follow MD Ling's plan. He said not to make any changes to Lantus at this time. More education given to patient about better blood glucose control and decided to take 25 units. Will continue to monitor, recheck BS at 0200.
[2020-12-02] MEDS: insulin glargine (Lantus) pen - multi-dose SQ SCH (21:16)
[2020-12-03 02:00] VITALS: BP 92/71
--- NOTE | 2020-12-03 06:15 | NUR ---
Problems reprioritized. Patient report given, questions answered & plan of care reviewed with CARLA oCrona.
--- NOTE | 2020-12-03 06:15 | NUR ---
Problems reprioritized. Patient report given, questions answered & plan of care reviewed with Marina AGUIRRE.
--- NOTE | 2020-12-03 06:17 | NUR ---
Orientee documentation: I have reviewed and agree with all interventions, assessments performed, medications administered, and documented by Gaby AGUIRRE .
[2020-12-03 07:00] VITALS: BP 111/68
[2020-12-03 07:29] LABS: ALANINE AMINOTRANSFERASE 31 U/L (12-78); ALBUMIN 2.6 G/DL (3.4-5.0); ALBUMIN/GLOBULIN RATIO 0.9 (1.1-1.5); ALKALINE PHOSPHATASE 87 IU/L (46-116); ANION GAP 5 (8-16); ASPARTATE AMINO TRANSFERASE 42 U/L (10-37); BILIRUBIN,TOTAL 0.3 MG/DL (0.1-1.0); BLOOD UREA NITROGEN 11 MG/DL (7-18); BUN/CREATININE RATIO 20.4 (6.6-38.0); CALCIUM 8.4 MG/DL (8.5-10.1); CHLORIDE 103 MMOL/L (99-107); CREATININE 0.54 MG/DL (0.40-0.90); GLUCOSE 158 MG/DL (70-104); MAGNESIUM 1.8 MG/DL (1.5-2.4); PHOSPHORUS 2.7 MG/DL (2.3-4.5); POTASSIUM 3.6 MMOL/L (3.5-5.1); SODIUM 136 MMOL/L (135-145); TOTAL CARBON DIOXIDE 27.7 MMOL/L (24-32); TOTAL PROTEIN 5.4 G/DL (6.4-8.2); eGFR > 90 ML/MIN
[2020-12-03] MEDS: K and/or MAG REPLACEMENT MC SCH ×2 (08:00→20:00)
[2020-12-03 08:04] LABS: BASOPHILS # (AUTO) 0.1 X10'3 (0-0.2); BASOPHILS % (AUTO) 0.8 % (0-1); EOSINOPHILS # (AUTO) 0.1 X10'3 (0-0.9); EOSINOPHILS % (AUTO) 1.5 % (0-6); HEMATOCRIT 38.1 % (35.0-45.0); HEMOGLOBIN 12.7 g/dl (12.0-16.0); LYMPHOCYTES # (AUTO) 1.4 X10'3 (1.1-4.8); LYMPHOCYTES % (AUTO) 22.3 % (21-51); MEAN CORPUSCULAR HEMOGLOBIN 28.7 PG (27.0-31.0); MEAN CORPUSCULAR HGB CONC 33.3 g/dL (33.0-36.5); MEAN CORPUSCULAR VOLUME 86.3 FL (78-98); MEAN PLATELET VOLUME 8.3 FL (7.4-10.4); MONOCYTES # (AUTO) 0.4 X10'3 (0-0.9); MONOCYTES % (AUTO) 6.4 % (2-12); NEUTROPHILS # (AUTO) 4.4 X10'3 (1.8-7.7); PLATELET COUNT 139 X10'3 (140-440); RED BLOOD COUNT 4.42 X10'6 (4.20-5.60); RED CELL DISTRIBUTION WIDTH 14.8 % (11.5-14.5); WHITE BLOOD COUNT 6.3 X10'3 (4.5-11.0)
[2020-12-03] MEDS: aspirin 81mg tablet.DR PO SCH (08:18)
[2020-12-03] MEDS: apixaban 5mg tablet PO SCH ×2 (08:18→19:04)
[2020-12-03] MEDS: pantoprazole 40mg Tablet.DR PO SCH (08:18)
[2020-12-03] MEDS: HYDROchlorothiazide 25mg tablet PO SCH (08:18)
[2020-12-03] MEDS: pregabalin 25mg capsule PO SCH ×3 (08:19→20:25)
[2020-12-03] MEDS: lisinopril 10 MG tablet PO SCH (08:19)
[2020-12-03] MEDS: calcium carbonate 500mg tablet PO SCH ×2 (08:19→19:04)
[2020-12-03] MEDS: potassium chloride 10mEq ER tablet PO SCH (08:19)
[2020-12-03] MEDS: HYDROcodone/acetaminophen 10/325mg tab PO PRN ×2 (08:21→19:08)
[2020-12-03] MEDS: budesonide 0.5mg/2ml UD nebule IH SCH ×2 (08:42→21:07)
[2020-12-03] MEDS: insulin Lispro (HumaLOG) vial - multi-dose SQ SCH ×3 (09:20→18:59)
[2020-12-03 11:00] VITALS: BP 94/62
[2020-12-03 15:00] VITALS: BP 89/46
--- NOTE | 2020-12-03 15:00 | NUR ---
Fu 12/03: DKA resolved, per MD progress note. Pt PO intake 100% on carbohydrate diet, receiving double protein TID, chopped meats with gravy on meats diet. Last BM 12/03. Pt meeting nutrient needs. Will continue to follow. Recommend: 1. continue carb controlled diet 2. double protein TID and gravy with chopped meat 3. bowel care as needed 4. weight per rx Addendum: 12/03/20 at [address] Amended: Links added. Addendum: 12/03/20 at [address] I have reviewed and agree with note by Air Dispatcher. Mehreen Smith RD
[2020-12-03 18:00] VITALS: BP 99/55
--- NOTE | 2020-12-03 18:00 | NUR ---
Patient in room PCU 3014. I have received report from Maris AGUIRRE and had the opportunity to ask questions and assume patient care.
--- NOTE | 2020-12-03 18:38 | NUR ---
Problems reprioritized. Patient report given, questions answered & plan of care reviewed with Maris AGUIRRE.
[2020-12-03] MEDS: amitriptyline 10mg tablet PO SCH (20:24)
[2020-12-03] MEDS: PARoxetine 20mg tablet PO SCH (20:25)
[2020-12-03] MEDS: atorvastatin 10mg tablet PO SCH (20:25)
[2020-12-03] MEDS: insulin glargine (Lantus) pen - multi-dose SQ SCH (21:26)
[2020-12-03 22:00] VITALS: BP 88/58
--- NOTE | 2020-12-04 00:08 | NUR ---
Problems reprioritized. Patient report given, questions answered & plan of care reviewed with Maris AGUIRRE.
[2020-12-04 00:55] VITALS: BP 129/103
[2020-12-04 02:00] VITALS: BP 110/53
[2020-12-04 06:00] VITALS: BP 99/52
--- NOTE | 2020-12-04 06:02 | NUR ---
Problems reprioritized. Patient report given, questions answered & plan of care reviewed with Louise Blancas RN.
--- NOTE | 2020-12-04 06:23 | NUR ---
Patient in room PCU 3014. I have received report from CARLA Pollock and had the opportunity to ask questions and assume patient care.
--- NOTE | 2020-12-04 06:26 | NUR ---
Patient in room PCU 3014A. I have received report from Roxi AGUIRRE, and had the opportunity to ask questions and assume patient care.
[2020-12-04 06:33] LABS: BASOPHILS % (AUTO) 0.9 % (0-1); EOSINOPHILS # (AUTO) 0.1 X10'3 (0-0.9); EOSINOPHILS % (AUTO) 1.9 % (0-6); HEMATOCRIT 37.8 % (35.0-45.0); HEMOGLOBIN 12.6 g/dl (12.0-16.0); LYMPHOCYTES # (AUTO) 1.8 X10'3 (1.1-4.8); LYMPHOCYTES % (AUTO) 38.7 % (21-51); MEAN CORPUSCULAR HEMOGLOBIN 28.6 PG (27.0-31.0); MEAN CORPUSCULAR HGB CONC 33.4 g/dL (33.0-36.5); MEAN CORPUSCULAR VOLUME 85.6 FL (78-98); MEAN PLATELET VOLUME 8.5 FL (7.4-10.4); MONOCYTES # (AUTO) 0.4 X10'3 (0-0.9); MONOCYTES % (AUTO) 7.6 % (2-12); NEUTROPHILS # (AUTO) 2.4 X10'3 (1.8-7.7); NEUTROPHILS % (AUTO) 50.9 % (42-75); PLATELET COUNT 139 X10'3 (140-440); RED BLOOD COUNT 4.41 X10'6 (4.20-5.60)
[2020-12-04 06:53] LABS: ALANINE AMINOTRANSFERASE 41 U/L (12-78); ALBUMIN 2.8 G/DL (3.4-5.0); ALBUMIN/GLOBULIN RATIO 0.9 (1.1-1.5); ALKALINE PHOSPHATASE 101 IU/L (46-116); ANION GAP 5 (8-16); ASPARTATE AMINO TRANSFERASE 63 U/L (10-37); BILIRUBIN,TOTAL 0.3 MG/DL (0.1-1.0); BLOOD UREA NITROGEN 13 MG/DL (7-18); BUN/CREATININE RATIO 25.5 (6.6-38.0); CALCIUM 8.6 MG/DL (8.5-10.1); CHLORIDE 103 MMOL/L (99-107); CREATININE 0.51 MG/DL (0.40-0.90); GLUCOSE 59 MG/DL (70-104); PHOSPHORUS 3.6 MG/DL (2.3-4.5); POTASSIUM 3.4 MMOL/L (3.5-5.1); SODIUM 140 MMOL/L (135-145); TOTAL PROTEIN 5.9 G/DL (6.4-8.2); eGFR > 90 ML/MIN
[2020-12-04] MEDS: budesonide 0.5mg/2ml UD nebule IH SCH (07:37)
[2020-12-04] MEDS: lisinopril 10 MG tablet PO SCH (08:00)
[2020-12-04] MEDS ORDERED: magnesium Cl slow-release 64mg tablet PO PRN (08:05)
[2020-12-04] MEDS ORDERED: magnesium 4gm in 100ml NS 100 ML IV PRN (08:05)
[2020-12-04] MEDS ORDERED: potassium Cl 20 mEq SR tablet PO PRN ×2 (08:05)
[2020-12-04] MEDS ORDERED: potassium Cl 40MEQ/1/2NS 520ml 520 ML IV PRN (08:05)
[2020-12-04] MEDS: aspirin 81mg tablet.DR PO SCH (08:37)
[2020-12-04] MEDS: pantoprazole 40mg Tablet.DR PO SCH (08:37)
[2020-12-04] MEDS: calcium carbonate 500mg tablet PO SCH (08:37)
[2020-12-04] MEDS: apixaban 5mg tablet PO SCH (08:37)
[2020-12-04] MEDS: potassium chloride 10mEq ER tablet PO SCH (08:38)
[2020-12-04] MEDS: pregabalin 25mg capsule PO SCH (08:38)
[2020-12-04] MEDS: K and/or MAG REPLACEMENT MC SCH (08:39)
[2020-12-04] MEDS: HYDROchlorothiazide 25mg tablet PO SCH (09:10)
[2020-12-04] MEDS: insulin Lispro (HumaLOG) vial - multi-dose SQ SCH (09:14)
[2020-12-04 11:00] VITALS: BP 96/62
[2020-12-04 11:38] VITALS: BP 110/55
--- NOTE | 2020-12-04 12:01 | NUR ---
Orientee documentation: I have reviewed and agree with all interventions, assessments performed and documented by CARLA Burgess.
--- NOTE | 2020-12-04 12:01 | NUR ---
Orientee Medication Administration: For this medication-pass time frame, all medication were reviewed, dispensed, administered and documented per hospital policy by CARLA Burgess.
--- NOTE | 2020-12-04 13:25 | NUR ---
Pt discharge Pt stable for discharge per MD orders. All discharge instructions reviewed with patient and all questions answered. follow up appointment made with Dr. Don for 12/10/20 at 415pm. no new prescriptions. PIV discontinued; cannula intact. graphite grinder discontinued. Belongings collected and sent with pt including purse, wallet, insulin pump, two cell phones and cell phone lightning rod erector. wristbands removed. pt wheeled to [facility] where her son Antony was waiting and left in their private vehicle.
== END 2020-12-04 14:31 | disposition home health service (06) | DRG 420 ==
LOC: ER 20:05 → ED HOLD 22:32 → CICU 2S 12-01 01:43 → PCU 3S 12-02 14:40
PROVIDERS: ADMIT Anesthesiology Critical Care Medicine; ATTEND Family Medicine
DX: E10.10 Type 1 diabetes mellitus with ketoacidosis without coma (principal); I11.0 Hypertensive heart disease with heart failure; E78.5 Hyperlipidemia, unspecified; I48.91 Unspecified atrial fibrillation; I50.9 Heart failure, unspecified; M81.0 Age-related osteoporosis without current pathological fracture; F32.9 Major depressive disorder, single episode, unspecified; F41.9 Anxiety disorder, unspecified; G89.29 Other chronic pain; K21.9 Gastro-esophageal reflux disease without esophagitis; J45.909 Unspecified asthma, uncomplicated; G93.40 Encephalopathy, unspecified; Z88.8 Allergy status to other drugs, medicaments and biological substances; Z88.0 Allergy status to penicillin; Z88.1 Allergy status to other antibiotic agents; E78.00 Pure hypercholesterolemia, unspecified; Z80.8 Family history of malignant neoplasm of other organs or systems; Z85.41 Personal history of malignant neoplasm of cervix uteri; Z90.710 Acquired absence of both cervix and uterus; Z90.49 Acquired absence of other specified parts of digestive tract
CPT/HCPCS: 36415; 36600; 71045; 74176; 80048; 80053; 80305; 81001; 82803; 82948; 83605; 83690; 83735; 84100; 84145; 84484; 85018; 85025; 87040; 87077; 87186; 93005; 94640; 94760; 97110; 97161; 97530; 99285; G0378; J1650; J1815; J2270; J2405; J7030; J7626

== ENCOUNTER 2020-12-08 17:21 | Emergency (ER) | payer MEDICAID ==
[~2020-12-08] VITALS: Ht 170.2 cm; Wt 65.0 kg
[~2020-12-08 17:21] MED LIST changes: -DULO30CA52 PO; +HYDR25TA4 PO; +LISI-643 PO; -LISI10TA27 PO; +POTA10TA36 PO
[2020-12-08] MEDS ORDERED: normal saline 1000ml 1,000 ML IV ONE ×2 (17:50→18:50)
[2020-12-08 18:09] LABS: BASOPHILS # (AUTO) 0.1 X10'3 (0-0.2); BASOPHILS % (AUTO) 1.4 % (0-1); EOSINOPHILS # (AUTO) 0.1 X10'3 (0-0.9); EOSINOPHILS % (AUTO) 2.3 % (0-6); HEMATOCRIT 37.7 % (35.0-45.0); HEMOGLOBIN 12.5 g/dl (12.0-16.0); LYMPHOCYTES # (AUTO) 1.7 X10'3 (1.1-4.8); LYMPHOCYTES % (AUTO) 34.9 % (21-51); MEAN CORPUSCULAR HEMOGLOBIN 28.9 PG (27.0-31.0); MEAN CORPUSCULAR HGB CONC 33.1 g/dL (33.0-36.5); MEAN CORPUSCULAR VOLUME 87.2 FL (78-98); MEAN PLATELET VOLUME 9.3 FL (7.4-10.4); MONOCYTES # (AUTO) 0.6 X10'3 (0-0.9); MONOCYTES % (AUTO) 11.4 % (2-12); NEUTROPHILS # (AUTO) 2.5 X10'3 (1.8-7.7); PLATELET COUNT 228 X10'3 (140-440); RED BLOOD COUNT 4.32 X10'6 (4.20-5.60); RED CELL DISTRIBUTION WIDTH 15.5 % (11.5-14.5)
--- NOTE | 2020-12-08 18:14 | NUR ---
Per Dr. Pratt, will leave pt's insulin pump as is for now (basal rate). Pt alert and oriented, able to work her pump.
[2020-12-08 18:23] LABS: ALANINE AMINOTRANSFERASE 78 U/L (12-78); ALBUMIN 3.1 G/DL (3.4-5.0); ALBUMIN/GLOBULIN RATIO 0.8 (1.1-1.5); ALKALINE PHOSPHATASE 173 IU/L (46-116); ANION GAP 8 (8-16); ASPARTATE AMINO TRANSFERASE 39 U/L (10-37); BILIRUBIN,TOTAL 0.3 MG/DL (0.1-1.0); BLOOD UREA NITROGEN 28 MG/DL (7-18); BUN/CREATININE RATIO 31.5 (6.6-38.0); CALCIUM 8.8 MG/DL (8.5-10.1); CHLORIDE 95 MMOL/L (99-107); CREATININE 0.89 MG/DL (0.40-0.90); LIPASE 220 U/L (73-393); POTASSIUM 4.7 MMOL/L (3.5-5.1); SODIUM 130 MMOL/L (135-145); TOTAL CARBON DIOXIDE 27.2 MMOL/L (24-32); TOTAL PROTEIN 6.8 G/DL (6.4-8.2); eGFR 67 ML/MIN
[2020-12-08 18:42] LABS: CLARITY,URINE CLEAR (Clear); COLOR,URINE STRAW (Yellow); GLUCOSE, URINE >=1000 mg/dl (Neg); KETONES,URINE NEGATIVE (Neg); LEUKOCYTE ESTERASE ,URINE NEGATIVE (Neg); NITRITES, URINE NEGATIVE (Neg); OCCULT BLOOD,URINE NEGATIVE (Neg); PH,URINE 6.5 (4.8-8.0); PROTEIN,URINE NEGATIVE (Neg); UA COLLECTION TYPE STRAIGHT CATH; UROBILINOGEN,URINE 0.2 E.U/dL (0.2-1.0)
[2020-12-08 18:45] LABS: GLUCOSE 572 MG/DL (70-104)
--- NOTE | 2020-12-08 18:52 | NUR ---
at bedside and informed pt that pt was not in DKA and also ordered pt to self-administer 10 units of insulin through insulin pump. Will continue to monitor BGL.
[2020-12-08 19:08] LABS: BACTERIA,URINE NONE SEEN /HPF (Neg); RBC,URINE 0-2 /HPF (0-2); SQUAMOUS EPITHELIAL CELL,UR FEW /LPF (FEW); WBC,URINE 0-4 /HPF (0-4)
[2020-12-08] MEDS ORDERED: haloperidol lactate 5mg/ml inj IM ONE (19:10)
--- NOTE | 2020-12-08 20:00 | NUR ---
BGL assessed to be 333. Pt then able to ambulate to bathroom independently.
[2020-12-08 20:22] VITALS: BP 110/69
== END 2020-12-08 20:35 | disposition home or self-care (01) ==
LOC: ER 17:22
DX: E11.65 Type 2 diabetes mellitus with hyperglycemia (principal); R11.0 Nausea; R10.84 Generalized abdominal pain; I48.91 Unspecified atrial fibrillation; I50.9 Heart failure, unspecified; E78.00 Pure hypercholesterolemia, unspecified; J45.909 Unspecified asthma, uncomplicated; K21.9 Gastro-esophageal reflux disease without esophagitis; G89.29 Other chronic pain; F41.9 Anxiety disorder, unspecified; F32.9 Major depressive disorder, single episode, unspecified; F17.200 Nicotine dependence, unspecified, uncomplicated; Z85.41 Personal history of malignant neoplasm of cervix uteri; Z90.49 Acquired absence of other specified parts of digestive tract; Z90.710 Acquired absence of both cervix and uterus; Z98.890 Other specified postprocedural states; Z56.0 Unemployment, unspecified; Z88.1 Allergy status to other antibiotic agents; Z88.0 Allergy status to penicillin; Z88.8 Allergy status to other drugs, medicaments and biological substances; Z79.82 Long term (current) use of aspirin; Z79.4 Long term (current) use of insulin; Z79.899 Other long term (current) drug therapy
CPT/HCPCS: 36415; 80053; 81001; 82948; 83690; 85025; 96360; 96361; 96372; 99284; J1630; J7030

== ENCOUNTER 2020-12-18 07:00 | Inpatient (IN) | payer MEDICAID ==
[~2020-12-18] VITALS: Ht 170.2 cm; Wt 65.1 kg
[2020-12-18] MEDS ORDERED: Insulin Reg/NS 100units/100mL 100 ML IV PRN (07:25)
[2020-12-18] MEDS ORDERED: ringers solution, lacted 1,000 ML IV ONE (07:30)
[2020-12-18 07:42] LABS: BASOPHILS # (AUTO) 0.2 X10'3 (0-0.2); LYMPHOCYTES # (AUTO) 1.3 X10'3 (1.1-4.8)
[2020-12-18 07:44] LABS: BASOPHILS % (AUTO) 0.7 % (0-1); EOSINOPHILS % (AUTO) 0.2 % (0-6); LYMPHOCYTES % (AUTO) 5.5 % (21-51); MEAN PLATELET VOLUME 10.6 FL (7.4-10.4); MONOCYTES # (AUTO) 0.9 X10'3 (0-0.9); MONOCYTES % (AUTO) 3.5 % (2-12); NEUTROPHILS % (AUTO) 90.1 % (42-75); PLATELET COUNT 346 X10'3 (140-440); WHITE BLOOD COUNT 24.4 X10'3 (4.5-11.0)
[2020-12-18 08:00] LABS: HEMATOCRIT 42.8 % (35.0-45.0); HEMOGLOBIN 13.7 g/dl (12.0-16.0); RED BLOOD COUNT 4.66 X10'6 (4.20-5.60)
[2020-12-18 08:01] LABS: MEAN CORPUSCULAR HEMOGLOBIN 29.4 PG (27.0-31.0); MEAN CORPUSCULAR VOLUME 91.9 FL (78-98); RED CELL DISTRIBUTION WIDTH 16.2 % (11.5-14.5)
[2020-12-18 08:17] LABS: ANISOCYTOSIS 1+; PLATELET ESTIMATE NORMAL; TOTAL CELLS COUNTED 100
[2020-12-18 08:18] LABS: TOXIC VACUOLATION FEW
--- NOTE | 2020-12-18 08:29 | NUR ---
called lab about hemolized cbc, stated will send clinical laboratory medical director to draw pt.
[2020-12-18 09:11] LABS: ALANINE AMINOTRANSFERASE 41 U/L (12-78); ALBUMIN 3.5 G/DL (3.4-5.0); ALKALINE PHOSPHATASE 161 IU/L (46-116); ASPARTATE AMINO TRANSFERASE 20 U/L (10-37); BILIRUBIN,TOTAL 0.5 MG/DL (0.1-1.0); BLOOD UREA NITROGEN 42 MG/DL (7-18); BUN/CREATININE RATIO 21.1 (6.6-38.0); CALCIUM 9.7 MG/DL (8.5-10.1); CHLORIDE 89 MMOL/L (99-107); CREATININE 1.99 MG/DL (0.40-0.90); SODIUM 134 MMOL/L (135-145); TOTAL PROTEIN 7.1 G/DL (6.4-8.2); eGFR 26 ML/MIN
[2020-12-18 09:18] LABS: MAGNESIUM 2.3 MG/DL (1.5-2.4)
[2020-12-18 09:31] LABS: PHOSPHORUS 10.6 MG/DL (2.3-4.5); POTASSIUM 5.7 MMOL/L (3.5-5.1)
[2020-12-18 09:32] LABS: ANION GAP 40 (8-16); GLUCOSE 984 MG/DL (70-104); TOTAL CARBON DIOXIDE < 5 MMOL/L (24-32)
--- NOTE | 2020-12-18 10:15 | NUR ---
INSULIN GTT INCREASED TO 7 PER MD VERBAL ORDER.
[2020-12-18] MEDS ORDERED: ringers solution, lacted 1,000 ML IV SCH (11:00)
[2020-12-18] MEDS ORDERED: LISI2.5T89 PO (12:19)
[2020-12-18] MEDS ORDERED: sodium phosphate inj. 15 MMOL in dextrose 5%-water 250 ML IV PRN (13:20)
[2020-12-18] MEDS ORDERED: bisacodyl 10mg suppository rectal RC PRN (13:20)
[2020-12-18] MEDS ORDERED: insulin regular, human U-100 3ml vial - multi-dose IV PRN (13:20)
[2020-12-18] MEDS ORDERED: Neutra Phos packet PO PRN (13:20)
[2020-12-18] MEDS ORDERED: sodium phosphate inj. 30 MMOL in dextrose 5%-water 250 ML IV PRN (13:20)
[2020-12-18] MEDS ORDERED: sodium bicarbonate (8.4%) inj. 50 MEQ in dextrose 5% water 500ml 250 ML IV PRN (13:20)
[2020-12-18] MEDS ORDERED: potassium Cl 40MEQ/1/2NS 520ml 520 ML IV PRN ×2 (13:20)
[2020-12-18] MEDS ORDERED: acetaminophen 325mg tablet PO PRN ×2 (13:20)
[2020-12-18] MEDS ORDERED: potassium Cl 20 mEq SR tablet PO PRN ×4 (13:20)
[2020-12-18] MEDS ORDERED: sodium bicarbonate (8.4%) inj. 100 MEQ in dextrose 5% water 500ml 500 ML IV PRN (13:20)
[2020-12-18] MEDS ORDERED: ondansetron/PF 4mg/2ml inj IV PRN (13:20)
[2020-12-18] MEDS ORDERED: magnesium 4gm in 100ml NS 100 ML IV PRN (13:20)
[2020-12-18] MEDS ORDERED: magnesium Cl slow-release 64mg tablet PO PRN (13:20)
[2020-12-18] MEDS ORDERED: magnesium 2GM in 50ml NS 50 ML IV PRN (13:20)
--- NOTE | 2020-12-18 13:25 | NUR ---
no change in insulin gtt reamins at 7 units/hr Blood sugar is 390 down 64 from 454
[2020-12-18] MEDS: normal saline 1000ml 1,000 ML IV SCH ×7 (13:35→21:20)
[2020-12-18 13:42] LABS: HCG SERUM QL NEGATIVE
[2020-12-18 14:03] LABS: ABG BASE EXCESS -5.6 mmol/L (-2.0-2.0); ABG HCO3 17.4 mmol/L (22.0-26.0); ABG PCO2 (T) 27.3 mmHg (32.0-45.0); ABG PO2 (T) 74.8 mmHg (75.0-100.0); FCOHb 0.3 % (0.0-3.9); FMetHb 0.2 % (0.0-1.5); FO2Hb 95.5 % (94-97); TOTAL HEMOGLOBIN 12.7 G/dl (12.0-16.0)
[2020-12-18] MEDS: Insulin Reg/NS 100units/100mL 100 ML IV SCH ×2 (14:09→19:53)
[2020-12-18 14:11] LABS: ANION GAP 18 (8-16); BLOOD UREA NITROGEN 35 MG/DL (7-18); CALCIUM 9.1 MG/DL (8.5-10.1); CHLORIDE 100 MMOL/L (99-107); CREATININE 1.46 MG/DL (0.40-0.90); GLUCOSE 398 MG/DL (70-104); PHOSPHORUS 3.7 MG/DL (2.3-4.5); POTASSIUM 4.5 MMOL/L (3.5-5.1); SODIUM 138 MMOL/L (135-145); TOTAL CARBON DIOXIDE 20.3 MMOL/L (24-32); eGFR 38 ML/MIN
[2020-12-18] MEDS: morphine 4 MG/ML inj SYRINge IV PRN (14:13)
[2020-12-18] MEDS: potassium CL 20mEq in D5-1/2NS 1,000 ML IV PRN ×2 (15:06→21:10)
--- NOTE | 2020-12-18 15:20 | NUR ---
Patient in room ED 8. I have received report from CARLA Gooden and had the opportunity to ask questions and awaiting pt's arrival from ED.
--- NOTE | 2020-12-18 15:45 | NUR ---
Pt arrived from ED, assisted to bed from [facility] with slide board. Alert and oriented to room, BLL, SRx2, CL within reach. First set of vitals complete, 2 RN skin check complete, MRSA swab collected. Insulin gtt running per protocol. All pt needs met at this time.
[2020-12-18 17:15] VITALS: BP 118/78
[2020-12-18 17:42] LABS: ALBUMIN 2.7 G/DL (3.4-5.0); ANION GAP 12 (8-16); BLOOD UREA NITROGEN 32 MG/DL (7-18); BUN/CREATININE RATIO 24.8 (6.6-38.0); CALCIUM 8.5 MG/DL (8.5-10.1); CHLORIDE 106 MMOL/L (99-107); CREATININE 1.29 MG/DL (0.40-0.90); GLUCOSE 217 MG/DL (70-104); PHOSPHORUS 3.4 MG/DL (2.3-4.5); POTASSIUM 4.4 MMOL/L (3.5-5.1); SODIUM 141 MMOL/L (135-145); TOTAL CARBON DIOXIDE 23.4 MMOL/L (24-32); eGFR 43 ML/MIN
[2020-12-18 18:00] VITALS: BP 96/59
--- NOTE | 2020-12-18 18:17 | NUR ---
Problems reprioritized. Patient report given, questions answered & plan of care reviewed with CARLA Pollock.
[2020-12-18] MEDS: K and/or MAG REPLACEMENT MC SCH (20:00)
[2020-12-18] MEDS: morphine 2 MG/ML inj. syringe IV PRN (20:33)
[2020-12-18 22:00] VITALS: BP 94/55
[2020-12-18 22:09] LABS: BASOPHILS % (AUTO) 0.3 % (0-1); EOSINOPHILS % (AUTO) 0.3 % (0-6); HEMATOCRIT 33.1 % (35.0-45.0); HEMOGLOBIN 10.9 g/dl (12.0-16.0); LYMPHOCYTES # (AUTO) 2.9 X10'3 (1.1-4.8); LYMPHOCYTES % (AUTO) 19.8 % (21-51); MEAN CORPUSCULAR HEMOGLOBIN 28.7 PG (27.0-31.0); MEAN CORPUSCULAR VOLUME 87.1 FL (78-98); MEAN PLATELET VOLUME 8.8 FL (7.4-10.4); MONOCYTES # (AUTO) 1.1 X10'3 (0-0.9); MONOCYTES % (AUTO) 7.6 % (2-12); NEUTROPHILS # (AUTO) 10.4 X10'3 (1.8-7.7); PLATELET COUNT 198 X10'3 (140-440); RED CELL DISTRIBUTION WIDTH 15.5 % (11.5-14.5); WHITE BLOOD COUNT 14.5 X10'3 (4.5-11.0)
[2020-12-18 22:22] LABS: ALANINE AMINOTRANSFERASE 32 U/L (12-78); ALBUMIN 2.7 G/DL (3.4-5.0); ALKALINE PHOSPHATASE 111 IU/L (46-116); ANION GAP 7 (8-16); ASPARTATE AMINO TRANSFERASE 13 U/L (10-37); BILIRUBIN,TOTAL 0.3 MG/DL (0.1-1.0); BLOOD UREA NITROGEN 28 MG/DL (7-18); BUN/CREATININE RATIO 24.3 (6.6-38.0); CALCIUM 8.3 MG/DL (8.5-10.1); CHLORIDE 108 MMOL/L (99-107); CREATININE 1.15 MG/DL (0.40-0.90); GLUCOSE 82 MG/DL (70-104); MAGNESIUM 1.7 MG/DL (1.5-2.4); PHOSPHORUS 2.9 MG/DL (2.3-4.5); SODIUM 141 MMOL/L (135-145); TOTAL CARBON DIOXIDE 25.8 MMOL/L (24-32); TOTAL PROTEIN 5.5 G/DL (6.4-8.2); eGFR 50 ML/MIN
[2020-12-19] VITALS (8 sets, daily range): BP systolic 84–113; BP diastolic 46–72
[2020-12-19] MEDS ORDERED: LORazepam 0.5 MG tablet PO PRN (00:30)
--- NOTE | 2020-12-19 00:32 | NUR ---
Dr. Fernandez is notified of pt's blood sugar of 122 and insulin rate. MD okayed insulin rate 1 ml/hr insulin rate and no change in fluid (D5 1/2 NS with 20 m Eq K+). Ativan 0.5 mg PO q4h PRN for anxiety was also ordered.
[2020-12-19] MEDS: normal saline 1000ml 1,000 ML IV SCH ×4 (01:20→21:20)
[2020-12-19] MEDS ORDERED: normal saline 1000ml 1,000 ML IV ONE (01:35)
--- NOTE | 2020-12-19 01:49 | NUR ---
Dr. Fernandez notified of pt's low BP 84/55 71 bpm. ordered a bolus of NS 1 L, okayed to be given even with D5 1/2 NS w/ 20 Eq K + is also running.
[2020-12-19] MEDS: potassium CL 20mEq in D5-1/2NS 1,000 ML IV PRN (02:15)
[2020-12-19] MEDS: K, MAG and/or Phos replacement - Verify level? MC SCH ×2 (02:43→08:00)
--- NOTE | 2020-12-19 06:00 | NUR ---
Insulin drip set to deliver 3unit/hour at start of shift.
--- NOTE | 2020-12-19 06:00 | NUR ---
Patient in room PCU 3014. I have received report from mireya AGUIRRE and had the opportunity to ask questions and assume patient care.
--- NOTE | 2020-12-19 06:08 | NUR ---
Problems reprioritized. Patient report given, questions answered & plan of care reviewed with CARLA Appiah & CARLA Stafford.
--- NOTE | 2020-12-19 06:10 | NUR ---
Patient in room PCU 3014. I have received report from Maris AGUIRRE and had the opportunity to ask questions and assume patient care with Td AGUIRRE.
[2020-12-19] MEDS ORDERED: glucagon, human recombinant 1mg kit SUBCUT PRN (06:25)
[2020-12-19] MEDS ORDERED: dextrose ORAL solution 15 GM/59 ML bottle PO PRN ×2 (06:25)
[2020-12-19] MEDS ORDERED: dextrose 50%-water 50ml dispensing syringe IV PRN ×2 (06:25)
[2020-12-19] MEDS ORDERED: MESSAGE TO PHARMACY PO ONE (06:25)
[2020-12-19 07:08] LABS: BASOPHILS % (AUTO) 0.3 % (0-1); EOSINOPHILS # (AUTO) 0.1 X10'3 (0-0.9); EOSINOPHILS % (AUTO) 1.2 % (0-6); HEMATOCRIT 34.4 % (35.0-45.0); HEMOGLOBIN 11.3 g/dl (12.0-16.0); LYMPHOCYTES # (AUTO) 2.6 X10'3 (1.1-4.8); LYMPHOCYTES % (AUTO) 24.7 % (21-51); MEAN CORPUSCULAR HEMOGLOBIN 28.9 PG (27.0-31.0); MEAN CORPUSCULAR HGB CONC 32.7 g/dL (33.0-36.5); MEAN CORPUSCULAR VOLUME 88.4 FL (78-98); MEAN PLATELET VOLUME 8.7 FL (7.4-10.4); MONOCYTES # (AUTO) 0.5 X10'3 (0-0.9); MONOCYTES % (AUTO) 4.7 % (2-12); NEUTROPHILS # (AUTO) 7.2 X10'3 (1.8-7.7); NEUTROPHILS % (AUTO) 69.1 % (42-75); PLATELET COUNT 184 X10'3 (140-440); RED BLOOD COUNT 3.89 X10'6 (4.20-5.60); RED CELL DISTRIBUTION WIDTH 15.5 % (11.5-14.5); WHITE BLOOD COUNT 10.4 X10'3 (4.5-11.0)
[2020-12-19 07:26] LABS: ALBUMIN 2.5 G/DL (3.4-5.0); ANION GAP 10 (8-16); BLOOD UREA NITROGEN 22 MG/DL (7-18); BUN/CREATININE RATIO 22.2 (6.6-38.0); CHLORIDE 107 MMOL/L (99-107); CREATININE 0.99 MG/DL (0.40-0.90); GLUCOSE 140 MG/DL (70-104); MAGNESIUM 1.8 MG/DL (1.5-2.4); PHOSPHORUS 2.1 MG/DL (2.3-4.5); POTASSIUM 3.8 MMOL/L (3.5-5.1); SODIUM 141 MMOL/L (135-145); TOTAL CARBON DIOXIDE 24.5 MMOL/L (24-32); eGFR 59 ML/MIN
[2020-12-19] MEDS: K and/or MAG REPLACEMENT MC SCH ×2 (08:00→20:00)
[2020-12-19] MEDS: insulin Lispro (HumaLOG) vial - multi-dose SQ SCH ×4 (09:22→21:35)
[2020-12-19] MEDS ORDERED: traMADol 50MG tablet PO PRN (10:45)
--- NOTE | 2020-12-19 11:54 | NUR ---
at bedside Dr. Marrufo at bedside discussing plan with patient. Ordered Ultram 50 mg Q6H for pain and throat lozenge for sore throat. Patient complaining of sore left ear, Dr. Marrufo assessed and suggested a mild pain reliever and does not think there is an infection in her ear. Dr. Marrufo wants to hydrate and ambulate patient.
--- NOTE | 2020-12-19 12:19 | NUR ---
Initial: Pt admit with DKA, BG 984 mg/dL on admit. Pt with multiple past visits for DKA, last seen by RD 11/21 for written and verbal DM education with A1c 12.1%. RD contact information provided at that time. No further education warranted. Pt on a CHO controlled diet documented with 100% PO intake first meal. D/w dietary to send double protein TID, chopped meat with gravy, and soft to chew foods per patient request at previous admits. LBM 12/18. Will continue to follow. Recommendations: 1) Continue CHO controlled diet 2) Double eggs WB, double meat BIDLD, chopped meat with gravy, and soft to chew foods 3) Bowel care per rx 4) Scaled weights per rx Addendum: 12/19/20 at [address] Amended: Links added.
[2020-12-19] MEDS ORDERED: ondansetron 4mg rapidly disintigrating tab PO PRN (12:20)
[2020-12-19] MEDS ORDERED: diazepam 2mg tablet PO PRN (12:20)
[2020-12-19] MEDS ORDERED: traZODone 50mg tablet PO PRN (12:20)
[2020-12-19] MEDS: HYDROchlorothiazide 25mg tablet PO SCH (12:26)
[2020-12-19] MEDS: lisinopril 2.5mg tablet PO SCH (12:28)
[2020-12-19] MEDS ORDERED: albuterol 2.5 MG/3 ML nebule NEB PRN (12:40)
[2020-12-19] MEDS: budesonide 0.5mg/2ml UD nebule IH SCH ×2 (13:15→19:31)
[2020-12-19] MEDS: aspirin 81mg tablet.DR PO SCH (13:23)
[2020-12-19] MEDS: benzocaine/menthol oral lozeng 1 EACH BOX MM PRN ×2 (13:23→22:42)
[2020-12-19] MEDS: potassium chloride 10mEq ER tablet PO SCH (13:24)
[2020-12-19] MEDS: apixaban 5mg tablet PO SCH ×2 (13:24→22:42)
[2020-12-19] MEDS: pregabalin 75mg capsule PO SCH ×2 (13:24→21:24)
[2020-12-19] MEDS: pregabalin 25mg capsule PO SCH ×2 (13:24→21:24)
[2020-12-19] MEDS: pantoprazole 40mg Tablet.DR PO SCH (13:25)
[2020-12-19] MEDS ORDERED: diphenhydrAMINE 50 mg/ml inj IV PRN (16:15)
--- NOTE | 2020-12-19 18:00 | NUR ---
orientee documentation: I have reviewed and agree with all interventions, assessments performed and documented by Nydia Gillis RN.
--- NOTE | 2020-12-19 18:30 | NUR ---
Problems reprioritized. Patient report given, questions answered & plan of care reviewed with Mayito AGUIRRE.
--- NOTE | 2020-12-19 18:31 | NUR ---
Problems reprioritized. Patient report given, questions answered & plan of care reviewed with Bunny AGUIRRE.
[2020-12-19] MEDS: amitriptyline 10mg tablet PO SCH (21:23)
[2020-12-19] MEDS: atorvastatin 10mg tablet PO SCH (21:24)
[2020-12-19] MEDS: calcium carbonate/vitamin D3 tablet PO SCH (21:25)
[2020-12-19] MEDS: PARoxetine 20mg tablet PO SCH (21:25)
[2020-12-19] MEDS: insulin glargine (Lantus) pen - multi-dose SQ SCH (21:33)
[2020-12-19] MEDS: morphine 2 MG/ML inj. syringe IV PRN (21:36)
[2020-12-20 02:00] VITALS: BP 119/71
[2020-12-20] MEDS: morphine 4 MG/ML inj SYRINge IV PRN (02:16)
[2020-12-20] MEDS: normal saline 1000ml 1,000 ML IV SCH ×3 (02:20→21:51)
--- NOTE | 2020-12-20 06:24 | NUR ---
Report discussed and given to CARLA Patterson.
--- NOTE | 2020-12-20 06:25 | NUR ---
Patient in room PCU 3014. I have received report from Clara AGUIRRE and had the opportunity to ask questions and assume patient care.
[2020-12-20 07:00] VITALS: BP 118/85
[2020-12-20 07:25] LABS: BASOPHILS % (AUTO) 0.7 % (0-1); EOSINOPHILS # (AUTO) 0.1 X10'3 (0-0.9); EOSINOPHILS % (AUTO) 2.1 % (0-6); HEMATOCRIT 32.4 % (35.0-45.0); HEMOGLOBIN 10.7 g/dl (12.0-16.0); LYMPHOCYTES # (AUTO) 2.2 X10'3 (1.1-4.8); LYMPHOCYTES % (AUTO) 37.8 % (21-51); MEAN CORPUSCULAR HEMOGLOBIN 28.9 PG (27.0-31.0); MEAN CORPUSCULAR VOLUME 87.6 FL (78-98); MEAN PLATELET VOLUME 8.7 FL (7.4-10.4); MONOCYTES # (AUTO) 0.3 X10'3 (0-0.9); MONOCYTES % (AUTO) 5.9 % (2-12); NEUTROPHILS # (AUTO) 3.1 X10'3 (1.8-7.7); NEUTROPHILS % (AUTO) 53.5 % (42-75); PLATELET COUNT 141 X10'3 (140-440); RED CELL DISTRIBUTION WIDTH 15.6 % (11.5-14.5); WHITE BLOOD COUNT 5.8 X10'3 (4.5-11.0)
[2020-12-20 07:43] LABS: ALBUMIN 2.5 G/DL (3.4-5.0); ANION GAP 7 (8-16); BLOOD UREA NITROGEN 13 MG/DL (7-18); BUN/CREATININE RATIO 20.6 (6.6-38.0); CALCIUM 8.3 MG/DL (8.5-10.1); CHLORIDE 107 MMOL/L (99-107); CREATININE 0.63 MG/DL (0.40-0.90); GLUCOSE 209 MG/DL (70-104); MAGNESIUM 1.8 MG/DL (1.5-2.4); PHOSPHORUS 2.6 MG/DL (2.3-4.5); POTASSIUM 4.2 MMOL/L (3.5-5.1); SODIUM 139 MMOL/L (135-145); TOTAL CARBON DIOXIDE 25.3 MMOL/L (24-32); eGFR > 90 ML/MIN
[2020-12-20] MEDS: K and/or MAG REPLACEMENT MC SCH (08:00)
[2020-12-20] MEDS: K, MAG and/or Phos replacement - Verify level? MC SCH (08:00)
[2020-12-20] MEDS: pregabalin 75mg capsule PO SCH ×3 (08:21→21:46)
[2020-12-20] MEDS: calcium carbonate/vitamin D3 tablet PO SCH ×2 (08:21→19:24)
[2020-12-20] MEDS: apixaban 5mg tablet PO SCH ×2 (08:21→19:24)
[2020-12-20] MEDS: pantoprazole 40mg Tablet.DR PO SCH (08:21)
[2020-12-20] MEDS: aspirin 81mg tablet.DR PO SCH (08:21)
[2020-12-20] MEDS: pregabalin 25mg capsule PO SCH ×3 (08:21→22:02)
[2020-12-20] MEDS: potassium chloride 10mEq ER tablet PO SCH (08:22)
[2020-12-20] MEDS: lisinopril 2.5mg tablet PO SCH (08:22)
[2020-12-20] MEDS: HYDROcodone/acetaminophen 5mg/325mg tablet PO PRN ×2 (08:22→22:03)
[2020-12-20] MEDS: HYDROchlorothiazide 25mg tablet PO SCH (08:22)
[2020-12-20] MEDS: budesonide 0.5mg/2ml UD nebule IH SCH ×2 (08:25→20:09)
[2020-12-20] MEDS: insulin Lispro (HumaLOG) vial - multi-dose SQ SCH ×3 (08:59→19:28)
[2020-12-20 11:00] VITALS: BP 114/72
[2020-12-20 15:00] VITALS: BP_SYST 105; BP_SYST 118; BP_DIAS 72; BP_DIAS 85
[2020-12-20] MEDS: morphine 2 MG/ML inj. syringe IV PRN (16:57)
[2020-12-20] MEDS ORDERED: levoFLOXACIN 500mg tablet PO ONE (17:45)
[2020-12-20 18:00] VITALS: BP 124/79
--- NOTE | 2020-12-20 18:00 | NUR ---
Patient in room PCU 3014. I have received report from Leonardo AGUIRRE and had the opportunity to ask questions and assume patient care.
--- NOTE | 2020-12-20 18:28 | NUR ---
Problems reprioritized. Patient report given, questions answered & plan of care reviewed with Yuli AGUIRRE.
[2020-12-20] MEDS: PARoxetine 20mg tablet PO SCH (21:43)
[2020-12-20] MEDS: atorvastatin 10mg tablet PO SCH (21:46)
[2020-12-20] MEDS: amitriptyline 10mg tablet PO SCH (21:47)
[2020-12-20] MEDS: insulin glargine (Lantus) pen - multi-dose SQ SCH (21:51)
[2020-12-20 22:00] VITALS: BP 121/81
[2020-12-20] MEDS: benzocaine/menthol oral lozeng 1 EACH BOX MM PRN (22:01)
--- NOTE | 2020-12-20 22:36 | NUR ---
No AM blood sugar was taken. Earliest BS was at 1200, which is what I used to determine nightly Lantus for the patient.
[2020-12-21 02:00] VITALS: BP 126/78
[2020-12-21] MEDS: morphine 2 MG/ML inj. syringe IV PRN (02:11)
[2020-12-21] MEDS: normal saline 1000ml 1,000 ML IV SCH (05:22)
--- NOTE | 2020-12-21 06:27 | NUR ---
Problems reprioritized. Patient report given, questions answered & plan of care reviewed with Yolanda RN.
[2020-12-21 06:30] VITALS: BP 135/86
--- NOTE | 2020-12-21 06:35 | NUR ---
Patient in room PCU 3014. I have received report from CARLA Roldan and had the opportunity to ask questions and assume patient care.
[2020-12-21 06:52] LABS: ALBUMIN 2.5 G/DL (3.4-5.0); ANION GAP 7 (8-16); BLOOD UREA NITROGEN 11 MG/DL (7-18); BUN/CREATININE RATIO 20.4 (6.6-38.0); CALCIUM 8.3 MG/DL (8.5-10.1); CHLORIDE 107 MMOL/L (99-107); CREATININE 0.54 MG/DL (0.40-0.90); GLUCOSE 118 MG/DL (70-104); MAGNESIUM 1.7 MG/DL (1.5-2.4); POTASSIUM 3.7 MMOL/L (3.5-5.1); SODIUM 142 MMOL/L (135-145); TOTAL CARBON DIOXIDE 28.3 MMOL/L (24-32); eGFR > 90 ML/MIN
[2020-12-21 06:55] LABS: BASOPHILS % (AUTO) 0.9 % (0-1); EOSINOPHILS # (AUTO) 0.1 X10'3 (0-0.9); EOSINOPHILS % (AUTO) 1.5 % (0-6); HEMATOCRIT 34.2 % (35.0-45.0); HEMOGLOBIN 11.4 g/dl (12.0-16.0); LYMPHOCYTES # (AUTO) 1.6 X10'3 (1.1-4.8); LYMPHOCYTES % (AUTO) 34.6 % (21-51); MEAN CORPUSCULAR HEMOGLOBIN 29.5 PG (27.0-31.0); MEAN CORPUSCULAR HGB CONC 33.4 g/dL (33.0-36.5); MEAN CORPUSCULAR VOLUME 88.5 FL (78-98); MEAN PLATELET VOLUME 9.3 FL (7.4-10.4); MONOCYTES # (AUTO) 0.3 X10'3 (0-0.9); MONOCYTES % (AUTO) 6.1 % (2-12); NEUTROPHILS # (AUTO) 2.6 X10'3 (1.8-7.7); NEUTROPHILS % (AUTO) 56.9 % (42-75); PLATELET COUNT 127 X10'3 (140-440); RED BLOOD COUNT 3.86 X10'6 (4.20-5.60); RED CELL DISTRIBUTION WIDTH 15.3 % (11.5-14.5); WHITE BLOOD COUNT 4.5 X10'3 (4.5-11.0)
[2020-12-21] MEDS: K, MAG and/or Phos replacement - Verify level? MC SCH (07:24)
[2020-12-21] MEDS ORDERED: magnesium hydroxide 30ml (MOM) UD suspension PO PRN (08:00)
[2020-12-21] MEDS: budesonide 0.5mg/2ml UD nebule IH SCH (08:07)
[2020-12-21] MEDS: lisinopril 2.5mg tablet PO SCH (08:18)
[2020-12-21] MEDS: apixaban 5mg tablet PO SCH (08:18)
[2020-12-21] MEDS: calcium carbonate/vitamin D3 tablet PO SCH (08:19)
[2020-12-21] MEDS: pregabalin 25mg capsule PO SCH ×2 (08:19→13:18)
[2020-12-21] MEDS: HYDROchlorothiazide 25mg tablet PO SCH (08:19)
[2020-12-21] MEDS: potassium chloride 10mEq ER tablet PO SCH (08:19)
[2020-12-21] MEDS: pantoprazole 40mg Tablet.DR PO SCH (08:19)
[2020-12-21] MEDS: aspirin 81mg tablet.DR PO SCH (08:19)
[2020-12-21] MEDS: pregabalin 75mg capsule PO SCH ×2 (08:19→13:18)
[2020-12-21] MEDS: HYDROcodone/acetaminophen 5mg/325mg tablet PO PRN (08:21)
[2020-12-21] MEDS: insulin Lispro (HumaLOG) vial - multi-dose SQ SCH ×2 (08:28→13:27)
[2020-12-21 11:00] VITALS: BP 127/91
[2020-12-21] MEDS ORDERED: levoFLOXACIN 500mg tablet PO SCH (11:00)
[2020-12-21] MEDS ORDERED: LEVO500T89 PO (13:08)
--- NOTE | 2020-12-21 14:20 | NUR ---
DC inst provided to pt. IV DC'd, tip intact. All belongings sent w/pt. WC to front lobby.
== END 2020-12-21 14:20 | disposition home or self-care (01) | DRG 420 ==
LOC: ER 07:00 → ED HOLD 13:19 → PCU 3S 16:55
PROVIDERS: ADMIT Surgery; ATTEND Family Medicine
DX: E11.10 Type 2 diabetes mellitus with ketoacidosis without coma (principal); N17.9 Acute kidney failure, unspecified; H92.02 Otalgia, left ear; E11.22 Type 2 diabetes mellitus with diabetic chronic kidney disease; N18.9 Chronic kidney disease, unspecified; F41.9 Anxiety disorder, unspecified; K21.9 Gastro-esophageal reflux disease without esophagitis; G89.29 Other chronic pain; F32.9 Major depressive disorder, single episode, unspecified; I50.9 Heart failure, unspecified; D64.9 Anemia, unspecified; Z96.41 Presence of insulin pump (external) (internal); I48.91 Unspecified atrial fibrillation; E78.00 Pure hypercholesterolemia, unspecified; J45.909 Unspecified asthma, uncomplicated; Z80.8 Family history of malignant neoplasm of other organs or systems; Z90.710 Acquired absence of both cervix and uterus; Z90.49 Acquired absence of other specified parts of digestive tract; Z91.19 Patient's noncompliance with other medical treatment and regimen; Z88.0 Allergy status to penicillin; Z88.1 Allergy status to other antibiotic agents; Z88.8 Allergy status to other drugs, medicaments and biological substances; Z85.41 Personal history of malignant neoplasm of cervix uteri
CPT/HCPCS: 36415; 36600; 80048; 80053; 82330; 82803; 82948; 83605; 83690; 83735; 84100; 84300; 84703; 85007; 85018; 85025; 87081; 94640; 94760; 96374; 99291; G0378; J1815; J2270; J2405; J3480; J7030; J7120; J7626

== ENCOUNTER 2021-05-04 08:06 | Inpatient (IN) | payer MEDICAID ==
[~2021-05-04] VITALS: Ht 172.7 cm; Wt 88.4 kg
[~2021-05-04 08:06] MED LIST changes: +LEVO500T89 PO; -LISI-643 PO; +LISI2.5T89 PO
[2021-05-04] MEDS ORDERED: normal saline 1000ml 1,000 ML IV ONE ×2 (08:20)
[2021-05-04 09:00] LABS: ABG BASE EXCESS -26.9 mmol/L (-2.0-2.0); ABG HCO3 2.6 mmol/L (22.0-26.0); ABG OXYGEN SATURATION 98.1 % (94-97); ABG PO2 (T) 143.6 mmHg (75.0-100.0); ALLEN'S TEST POSITIVE; FCOHb 0.6 % (0.0-3.9); FMetHb 0.4 % (0.0-1.5); FO2Hb 97.1 % (94-97); TOTAL HEMOGLOBIN 16.7 G/dl (12.0-16.0)
[2021-05-04 09:03] LABS: ALANINE AMINOTRANSFERASE 31 U/L (12-78); ALBUMIN 3.8 G/DL (3.4-5.0); ALKALINE PHOSPHATASE 144 IU/L (46-116); ASPARTATE AMINO TRANSFERASE 14 U/L (10-37); BILIRUBIN,TOTAL 0.5 MG/DL (0.1-1.0); BLOOD UREA NITROGEN 34 MG/DL (7-18); BUN/CREATININE RATIO 18.8 (6.6-38.0); CALCIUM 9.4 MG/DL (8.5-10.1); CHLORIDE 93 MMOL/L (99-107); CREATININE 1.81 MG/DL (0.40-0.90); POTASSIUM 5.6 MMOL/L (3.5-5.1); SODIUM 136 MMOL/L (135-145); TOTAL PROTEIN 7.8 G/DL (6.4-8.2); eGFR 29 ML/MIN
[2021-05-04 09:20] LABS: BASOPHILS # (AUTO) 0.1 X10'3 (0-0.2); BASOPHILS % (AUTO) 0.5 % (0-1); EOSINOPHILS % (AUTO) 0.1 % (0-6); LYMPHOCYTES # (AUTO) 1.2 X10'3 (1.1-4.8); LYMPHOCYTES % (AUTO) 5.5 % (21-51); MEAN PLATELET VOLUME 10.5 FL (7.4-10.4); MONOCYTES # (AUTO) 0.8 X10'3 (0-0.9); MONOCYTES % (AUTO) 3.4 % (2-12); NEUTROPHILS # (AUTO) 20.3 X10'3 (1.8-7.7); NEUTROPHILS % (AUTO) 90.5 % (42-75); PLATELET COUNT 339 X10'3 (140-440); WHITE BLOOD COUNT 22.4 X10'3 (4.5-11.0)
[2021-05-04] MEDS ORDERED: Neutra Phos packet PO PRN ×2 (09:25→10:50)
[2021-05-04] MEDS ORDERED: potassium Cl 40MEQ/1/2NS 520ml 520 ML IV PRN ×4 (09:25→10:50)
[2021-05-04] MEDS ORDERED: potassium Cl 20 mEq SR tablet PO PRN ×3 (09:25→10:50)
[2021-05-04] MEDS ORDERED: sodium bicarbonate (8.4%) inj. 50 MEQ in dextrose 5% water 500ml 250 ML IV PRN ×2 (09:25→10:50)
[2021-05-04] MEDS ORDERED: potassium CL 20mEq in D5-1/2NS 1,000 ML IV PRN ×2 (09:25→10:50)
[2021-05-04] MEDS ORDERED: sodium phosphate inj. 30 MMOL in dextrose 5%-water 250 ML IV PRN ×2 (09:25→10:50)
[2021-05-04] MEDS ORDERED: sodium bicarbonate (8.4%) inj. 100 MEQ in dextrose 5% water 500ml 500 ML IV PRN ×2 (09:25→10:50)
[2021-05-04] MEDS ORDERED: sodium phosphate inj. 15 MMOL in dextrose 5%-water 250 ML IV PRN ×2 (09:25→10:50)
[2021-05-04 09:29] LABS: ANION GAP 38 (8-16); GLUCOSE 822 MG/DL (70-104); TOTAL CARBON DIOXIDE < 5 MMOL/L (24-32)
[2021-05-04 10:16] LABS: HEMATOCRIT 46.8 % (35.0-45.0); HEMOGLOBIN 15.7 g/dl (12.0-16.0); MEAN CORPUSCULAR HEMOGLOBIN 28.8 PG (27.0-31.0); MEAN CORPUSCULAR HGB CONC 33.6 g/dL (33.0-36.5); MEAN CORPUSCULAR VOLUME 85.7 FL (78-98); RED BLOOD COUNT 5.46 X10'6 (4.20-5.60); RED CELL DISTRIBUTION WIDTH 14.1 % (11.5-14.5)
[2021-05-04 10:31] LABS: ALBUMIN 3.8 G/DL (3.4-5.0); BLOOD UREA NITROGEN 35 MG/DL (7-18); BUN/CREATININE RATIO 18.3 (6.6-38.0); CALCIUM 9.3 MG/DL (8.5-10.1); CREATININE 1.91 MG/DL (0.40-0.90); POTASSIUM 5.6 MMOL/L (3.5-5.1); SODIUM 135 MMOL/L (135-145); eGFR 28 ML/MIN
[2021-05-04 10:36] LABS: CHLORIDE 97 MMOL/L (99-107); PHOSPHORUS 9.4 MG/DL (2.3-4.5)
[2021-05-04 10:48] LABS: ANION GAP 33 (8-16)
[2021-05-04 10:49] LABS: GLUCOSE 834 MG/DL (70-104); TOTAL CARBON DIOXIDE < 5 MMOL/L (24-32)
[2021-05-04] MEDS ORDERED: normal saline 1000ml 1,000 ML IV SCH (10:50)
[2021-05-04] MEDS ORDERED: Insulin Reg/NS 100units/100mL 100 ML IV SCH (10:50)
[2021-05-04] MEDS ORDERED: insulin regular, human U-100 3ml vial - multi-dose IV PRN (10:50)
[2021-05-04 11:14] LABS: ANISOCYTOSIS 1+; EOSINOPHILS % (MANUAL) 0 % (0-6); PLATELET ESTIMATE NORMAL; TOTAL CELLS COUNTED 100
[2021-05-04] MEDS: normal saline 1000ml 1,000 ML IV SCH ×9 (11:16→23:38)
[2021-05-04 11:17] LABS: BURR CELLS 1+
--- NOTE | 2021-05-04 11:30 | NUR ---
First interaction with pt assisting primary RN Bela. NS 2L and insulin drip started and infusing as protocol. Continue monitoring closely.
[2021-05-04] MEDS: Insulin Reg/NS 100units/100mL 100 ML IV SCH (11:34)
[2021-05-04] MEDS: insulin regular, human U-100 3ml vial - multi-dose IV PRN ×2 (11:35→14:20)
[2021-05-04] MEDS: LIDOcaine 5% patch TP SCH (12:01)
[2021-05-04 13:02] LABS: MEAN PLATELET VOLUME 10.4 FL (7.4-10.4); PLATELET COUNT 341 X10'3 (140-440)
[2021-05-04 13:23] LABS: ALBUMIN 3.7 G/DL (3.4-5.0); BLOOD UREA NITROGEN 35 MG/DL (7-18); BUN/CREATININE RATIO 20.1 (6.6-38.0); CALCIUM 8.4 MG/DL (8.5-10.1); CHLORIDE 101 MMOL/L (99-107); CREATININE 1.74 MG/DL (0.40-0.90); PHOSPHORUS 8.9 MG/DL (2.3-4.5); POTASSIUM 5.2 MMOL/L (3.5-5.1); SODIUM 137 MMOL/L (135-145); eGFR 31 ML/MIN
[2021-05-04 13:28] LABS: HEMATOCRIT 49.9 % (35.0-45.0); HEMOGLOBIN 16.5 g/dl (12.0-16.0); MEAN CORPUSCULAR HEMOGLOBIN 29.2 PG (27.0-31.0); MEAN CORPUSCULAR HGB CONC 33.1 g/dL (33.0-36.5); MEAN CORPUSCULAR VOLUME 88.2 FL (78-98); RED BLOOD COUNT 5.66 X10'6 (4.20-5.60); RED CELL DISTRIBUTION WIDTH 13.9 % (11.5-14.5)
[2021-05-04 13:33] LABS: WHITE BLOOD COUNT 29.5 X10'3 (4.5-11.0)
[2021-05-04 13:57] LABS: GLUCOSE 820 MG/DL (70-104)
[2021-05-04 13:58] LABS: ANION GAP 31 (8-16); TOTAL CARBON DIOXIDE < 5 MMOL/L (24-32)
--- NOTE | 2021-05-04 15:00 | NUR ---
DR ZAPIEN PAGED FOR PAIN MEDS FOR PT BUT HE REFUSES STATING SHE IS DRUG SEEKING. SHE CAN HAVE THE LIDOCAINE PATCH ONLY.
--- NOTE | 2021-05-04 16:44 | NUR ---
bBICARB DRIP HUNG AT 1500
--- NOTE | 2021-05-04 16:46 | NUR ---
PT ASKING FOR HER LYRICA C/O LEG PAIN.
--- NOTE | 2021-05-04 17:16 | NUR ---
PAGE DR ZAPIEN AND DR WELLER CALLS BACK AND WILL BE TAKING OVER PT'S CARE TONIGHT. NOTIFY DR WELLER THAT PT'S HR HAS BEEN IN THE 160'S OFF AND ON FOR A COUPLE OF HOURS. REQUEST THE ER DR TO PLACE A CENTRAL LINE IF UNABLE TO GET AN GOOD WORKING IV. ORDERS RECEIVED.
[2021-05-04 17:36] LABS: PHOSPHORUS 4.7 MG/DL (2.3-4.5)
[2021-05-04] MEDS ORDERED: acetaminophen 325mg tablet PO PRN (17:50)
[2021-05-04 18:30] LABS: ANION GAP 26 (8-16); BLOOD UREA NITROGEN 32 MG/DL (7-18); BUN/CREATININE RATIO 21.9 (6.6-38.0); CALCIUM 7.4 MG/DL (8.5-10.1); CHLORIDE 108 MMOL/L (99-107); CREATININE 1.46 MG/DL (0.40-0.90); GLUCOSE 396 MG/DL (70-104); POTASSIUM 4.5 MMOL/L (3.5-5.1); SODIUM 144 MMOL/L (135-145); eGFR 38 ML/MIN
[2021-05-04 18:41] LABS: TOTAL CARBON DIOXIDE 10.1 MMOL/L (24-32)
--- NOTE | 2021-05-04 18:46 | NUR ---
TCO2 10.1. Primary RN assuming care for NOC, Tosha, sherry and Day Shift RN Bela.
[2021-05-04] MEDS ORDERED: diltiazem-NS 100mg/100ml 100 ML IV SCH (19:35)
[2021-05-04] MEDS ORDERED: diltiazem 5mg/ml 5ml inj. IV ONE (19:35)
[2021-05-04] MEDS: K and/or MAG REPLACEMENT MC SCH (20:00)
[2021-05-04] MEDS ORDERED: K and/or MAG REPLACEMENT MC SCH (20:00)
[2021-05-04] MEDS: pregabalin 25mg capsule PO SCH (20:14)
[2021-05-04] MEDS: dextrose 5%-1/2 normal saline 1,000 ML IV SCH (20:22)
--- NOTE | 2021-05-04 20:30 | NUR ---
Dr James at bedside- stated to simply finish another bolus of normal saline and would prefer we do not give cardizem at this time although patient's heart rate remain in 150-170s. Also notified of patient's repeated requests for pain medication- he states she can only have the lyrica and tylenol at this time.
[2021-05-04 20:51] LABS: ABG BASE EXCESS -12.7 mmol/L (-2.0-2.0); ABG HCO3 11.1 mmol/L (22.0-26.0); ABG OXYGEN SATURATION 97.5 % (94-97); ABG PCO2 (T) 21.4 mmHg (32.0-45.0); ABG PO2 (T) 96.4 mmHg (75.0-100.0); ALLEN'S TEST POSITIVE; FCOHb 0.1 % (0.0-3.9); FMetHb 0.1 % (0.0-1.5); FO2Hb 97.3 % (94-97); PATIENT TEMPERATURE 36.8; RESPIRATORY RATE 22 b/min; TOTAL HEMOGLOBIN 12.6 G/dl (12.0-16.0)
[2021-05-04] MEDS: pregabalin 75mg capsule PO SCH (21:20)
[2021-05-05] MEDS ORDERED: ringers solution, lacted 1,000 ML IV ONE (00:15)
--- NOTE | 2021-05-05 00:15 | NUR ---
Spoke with DR Phelps due to patient continuing elevated heart rate, hypotension and requests for pain medicaiton. He recommends to give one more liter or normal saline.
[2021-05-05] MEDS: dextrose 5%-1/2 normal saline 1,000 ML IV SCH ×4 (02:04→23:00)
[2021-05-05 02:43] LABS: ALBUMIN 2.7 G/DL (3.4-5.0); ANION GAP 13 (8-16); BLOOD UREA NITROGEN 18 MG/DL (7-18); CALCIUM 7.4 MG/DL (8.5-10.1); CHLORIDE 110 MMOL/L (99-107); CREATININE 1.06 MG/DL (0.40-0.90); GLUCOSE 123 MG/DL (70-104); PHOSPHORUS 1.9 MG/DL (2.3-4.5); POTASSIUM 3.7 MMOL/L (3.5-5.1); SODIUM 143 MMOL/L (135-145); eGFR 54 ML/MIN
[2021-05-05] MEDS: normal saline 1000ml 1,000 ML IV SCH ×9 (03:11→23:45)
--- NOTE | 2021-05-05 04:05 | NUR ---
Patient resting in stretcher with eyes closed, appears to be asleep at this time. Even and unlabored respirations.
[2021-05-05 04:36] LABS: ABG BASE EXCESS -7.2 mmol/L (-2.0-2.0); ABG HCO3 17.2 mmol/L (22.0-26.0); ABG OXYGEN SATURATION 96.2 % (94-97); ABG PO2 (T) 78.1 mmHg (75.0-100.0); ALLEN'S TEST POSITIVE; FCOHb 0.4 % (0.0-3.9); FMetHb 0.2 % (0.0-1.5); FO2Hb 95.6 % (94-97); PATIENT TEMPERATURE 36.8; TOTAL HEMOGLOBIN 13.2 G/dl (12.0-16.0)
--- NOTE | 2021-05-05 05:08 | NUR ---
Patient assisted to bedside commode with minimal assistance- tolerated well.
[2021-05-05] MEDS: Insulin Reg/NS 100units/100mL 100 ML IV SCH (05:25)
[2021-05-05] MEDS: K and/or MAG REPLACEMENT MC SCH ×2 (08:00→20:00)
[2021-05-05] MEDS: LIDOcaine 5% patch TP SCH (08:59)
[2021-05-05] MEDS: pregabalin 25mg capsule PO SCH ×3 (08:59→21:56)
[2021-05-05] MEDS: pregabalin 75mg capsule PO SCH ×3 (08:59→21:23)
[2021-05-05] MEDS ORDERED: glucagon, human recombinant 1mg kit SUBCUT PRN (09:25)
[2021-05-05] MEDS ORDERED: dextrose 50%-water 50ml dispensing syringe IV PRN ×2 (09:25)
[2021-05-05] MEDS ORDERED: dextrose ORAL solution 15 GM/59 ML bottle PO PRN ×2 (09:25)
[2021-05-05] MEDS: insulin Lispro (HumaLOG) vial - multi-dose SQ SCH ×3 (10:04→20:52)
[2021-05-05] MEDS ORDERED: ondansetron/PF 4mg/2ml inj IV PRN (10:05)
[2021-05-05] MEDS: HYDROcodone/acetaminophen 10/325mg tab PO SCH ×3 (10:16→21:25)
[2021-05-05 12:54] LABS: BASOPHILS % (AUTO) 0.2 % (0-1); EOSINOPHILS % (AUTO) 0.1 % (0-6); HEMATOCRIT 42.3 % (35.0-45.0); HEMOGLOBIN 13.6 g/dl (12.0-16.0); LYMPHOCYTES # (AUTO) 1.2 X10'3 (1.1-4.8); LYMPHOCYTES % (AUTO) 7.7 % (21-51); MEAN CORPUSCULAR HEMOGLOBIN 28.3 PG (27.0-31.0); MEAN CORPUSCULAR HGB CONC 32.1 g/dL (33.0-36.5); MEAN CORPUSCULAR VOLUME 88.4 FL (78-98); MEAN PLATELET VOLUME 9.2 FL (7.4-10.4); MONOCYTES # (AUTO) 0.3 X10'3 (0-0.9); MONOCYTES % (AUTO) 2.1 % (2-12); NEUTROPHILS % (AUTO) 89.9 % (42-75); PLATELET COUNT 196 X10'3 (140-440); RED BLOOD COUNT 4.79 X10'6 (4.20-5.60); WHITE BLOOD COUNT 15.5 X10'3 (4.5-11.0)
[2021-05-05 13:04] LABS: ALANINE AMINOTRANSFERASE 28 U/L (12-78); ALBUMIN 3.2 G/DL (3.4-5.0); ALBUMIN/GLOBULIN RATIO 0.9 (1.1-1.5); ALKALINE PHOSPHATASE 99 IU/L (46-116); ANION GAP 20 (8-16); ASPARTATE AMINO TRANSFERASE 20 U/L (10-37); BILIRUBIN,TOTAL 0.4 MG/DL (0.1-1.0); BLOOD UREA NITROGEN 14 MG/DL (7-18); BUN/CREATININE RATIO 13.3 (6.6-38.0); CALCIUM 7.9 MG/DL (8.5-10.1); CHLORIDE 104 MMOL/L (99-107); CREATININE 1.05 MG/DL (0.40-0.90); GLUCOSE 307 MG/DL (70-104); POTASSIUM 3.5 MMOL/L (3.5-5.1); SODIUM 139 MMOL/L (135-145); TOTAL CARBON DIOXIDE 15.3 MMOL/L (24-32); TOTAL PROTEIN 6.6 G/DL (6.4-8.2); eGFR 55 ML/MIN
--- NOTE | 2021-05-05 13:05 | NUR ---
Per Dr Oliver, no need for Q8 ABG's. Orders DC'd
[2021-05-05] MEDS: levoFLOXACIN-Levaquin 500mg/D5 100 ML IV SCH (13:14)
[2021-05-05 13:29] LABS: CLARITY,URINE CLEAR (Clear); COLOR,URINE STRAW (Yellow); GLUCOSE, URINE >=1000 mg/dl (Neg); KETONES,URINE >=80 mg/dl (Neg); LEUKOCYTE ESTERASE ,URINE NEGATIVE (Neg); NITRITES, URINE NEGATIVE (Neg); OCCULT BLOOD,URINE NEGATIVE (Neg); PH,URINE 5.5 (4.8-8.0); PROTEIN,URINE NEGATIVE (Neg); UROBILINOGEN,URINE 0.2 E.U/dL (0.2-1.0)
[2021-05-05 13:39] LABS: UA COLLECTION TYPE CLN CATCH MIDSTREAM
[2021-05-05 13:41] LABS: SQUAMOUS EPITHELIAL CELL,UR MODERATE /LPF (FEW)
[2021-05-05 13:42] LABS: BACTERIA,URINE FEW /HPF (Neg); RBC,URINE 0-2 /HPF (0-2); WBC,URINE 0-4 /HPF (0-4); YEAST MANY /HPF (NEGATIVE)
[2021-05-05] MEDS ORDERED: traZODone 50mg tablet PO PRN (13:45)
[2021-05-05] MEDS ORDERED: ondansetron 4mg rapidly disintigrating tab PO PRN (13:45)
[2021-05-05] MEDS ORDERED: diazepam 2mg tablet PO PRN (13:45)
[2021-05-05] MEDS ORDERED: HYDROcodone/acetaminophen 10/325mg tab PO PRN (13:45)
[2021-05-05 13:46] LABS: MUCUS STRANDS FEW /LPF (Neg)
--- NOTE | 2021-05-05 14:25 | NUR ---
Pt ABX stopped due to c/o itching and SOB. MD alerted, Dr Pratt sees Pt and gives orders.
[2021-05-05] MEDS ORDERED: diphenhydrAMINE 50 mg/ml inj IM ONE (14:35)
--- NOTE | 2021-05-05 15:09 | NUR ---
RN CALLED DR ZAPIEN TO INFOR HIM THT PT HAD A REACTION TO THE ANTIBIOTIC SHE RECEIVED HALF HOUR AGO. DR GARNICA WAS NOTIFIED AND ASSESSED PATIENT AT TIME OF REACTION, 50 OF BENADRYL WAS GIVEN IV, AND DR ZAPIEN GAVE DIRECTIVES AFTER HE HAD BEEN INFORMED.
[2021-05-05] MEDS: diphenhydrAMINE 50 mg/ml inj IV SCH (15:38)
[2021-05-05] MEDS ORDERED: methylPREDNISolone sod succ 125mg/2ml vial IV ONE (16:00)
[2021-05-05] MEDS ORDERED: CALCIUM CARBONATE PO SCH (20:00)
[2021-05-05] MEDS: albuterol 2.5 MG/3 ML nebule NEB PRN (20:03)
[2021-05-05] MEDS: budesonide 0.5mg/2ml UD nebule IH SCH (20:03)
[2021-05-05] MEDS ORDERED: insulin glargine (Lantus) pen - multi-dose SQ SCH ×2 (21:00)
[2021-05-05] MEDS: atorvastatin 10mg tablet PO SCH (21:23)
[2021-05-05] MEDS: apixaban 5mg tablet PO SCH (21:24)
[2021-05-05] MEDS: amitriptyline 10mg tablet PO SCH (21:56)
[2021-05-05] MEDS: PARoxetine 20mg tablet PO SCH (21:57)
--- NOTE | 2021-05-05 22:37 | NUR ---
PTS ACCUCHECK NOW 461. WAS 281 AT DINNERTIME AND PT GIVEN COVERAGE (NUTRUTIONAL AND CORRECTIONAL HUMALOG 21 U AND LANTUS 12 U). Q8HR LABS PER ORDERS FROM DR. ZAPIEN GETTING DRAWN NOW (CMP, MG, PHOS, LACTATE). PT SLEEPING AND WITH STABLE VS AT THIS TIME.
[2021-05-05 23:09] LABS: ALANINE AMINOTRANSFERASE 26 U/L (12-78); ALBUMIN 2.9 G/DL (3.4-5.0); ALBUMIN/GLOBULIN RATIO 0.9 (1.1-1.5); ALKALINE PHOSPHATASE 94 IU/L (46-116); ANION GAP 25 (8-16); ASPARTATE AMINO TRANSFERASE 23 U/L (10-37); BILIRUBIN,TOTAL 0.4 MG/DL (0.1-1.0); BLOOD UREA NITROGEN 15 MG/DL (7-18); BUN/CREATININE RATIO 13.2 (6.6-38.0); CALCIUM 7.8 MG/DL (8.5-10.1); CHLORIDE 103 MMOL/L (99-107); CREATININE 1.14 MG/DL (0.40-0.90); GLUCOSE 429 MG/DL (70-104); MAGNESIUM 1.5 MG/DL (1.5-2.4); POTASSIUM 4.2 MMOL/L (3.5-5.1); SODIUM 137 MMOL/L (135-145); TOTAL PROTEIN 6.1 G/DL (6.4-8.2); eGFR 50 ML/MIN
[2021-05-05 23:16] LABS: TOTAL CARBON DIOXIDE 9.1 MMOL/L (24-32)
--- NOTE | 2021-05-05 23:29 | NUR ---
DR. LEONG CALLED WITH CRITICAL LABS- CO2 9.1 (DECREASED FROM 15 AT NOON TODAY; GLU 429, AGAP 25 INCREASED). VERBAL RECEIVED TO RESTART DKA PROTOCOL.
[2021-05-05] MEDS ORDERED: potassium CL 20mEq in D5-1/2NS 1,000 ML IV PRN (23:45)
[2021-05-05] MEDS ORDERED: sodium bicarbonate (8.4%) inj. 100 MEQ in dextrose 5% water 500ml 500 ML IV PRN (23:45)
[2021-05-05] MEDS ORDERED: sodium bicarbonate (8.4%) inj. 50 MEQ in dextrose 5% water 500ml 250 ML IV PRN (23:45)
[2021-05-05 23:52] LABS: ABG BASE EXCESS -19.5 mmol/L (-2.0-2.0); ABG HCO3 6.9 mmol/L (22.0-26.0); ABG OXYGEN SATURATION 96.6 % (94-97); ABG PCO2 (T) 19.6 mmHg (32.0-45.0); ALLEN'S TEST POSITIVE; FCOHb 0.4 % (0.0-3.9); FMetHb 0.3 % (0.0-1.5); FO2Hb 95.9 % (94-97); PATIENT TEMPERATURE 37.1; TOTAL HEMOGLOBIN 13.9 G/dl (12.0-16.0)
--- NOTE | 2021-05-05 23:56 | NUR ---
DR LEONG CALLED W ABG RESULTS: PH 7.169, PCO2 19.5, HCO3 6.9
[2021-05-06] MEDS ORDERED: vancomycin/NS 1 GM ADD-VANTAGE 250 ML IV SCH
[2021-05-06] MEDS ORDERED: insulin regular, human U-100 3ml vial - multi-dose IV PRN (00:15)
[2021-05-06] MEDS: Insulin Reg/NS 100units/100mL 100 ML IV SCH ×3 (00:17→12:40)
[2021-05-06] MEDS: normal saline 1000ml 1,000 ML IV SCH ×7 (00:28→17:42)
--- NOTE | 2021-05-06 00:29 | NUR ---
INSULIN GTT STARTED PER PROTOCOL. 1ST OF 2 LITERS NS BOLUS INFUSING PER PROTCOL. VSS. RR 18.
[2021-05-06] MEDS: dextrose 5%-1/2 normal saline 1,000 ML IV SCH ×3 (02:15→13:37)
[2021-05-06 02:53] LABS: ALBUMIN 2.4 G/DL (3.4-5.0); ANION GAP 18 (8-16); BLOOD UREA NITROGEN 13 MG/DL (7-18); CALCIUM 7.2 MG/DL (8.5-10.1); CHLORIDE 107 MMOL/L (99-107); CREATININE 1.08 MG/DL (0.40-0.90); GLUCOSE 222 MG/DL (70-104); POTASSIUM 3.7 MMOL/L (3.5-5.1); SODIUM 139 MMOL/L (135-145); eGFR 53 ML/MIN
[2021-05-06 02:55] LABS: TOTAL CARBON DIOXIDE 13.9 MMOL/L (24-32)
--- NOTE | 2021-05-06 04:17 | NUR ---
DR. LEONG CALLING FOR UPDATE. CO2 AND ANION GAP ARE IMPROVING . PT REMAINS ON INSULIN GTT AT 5 U HR WITH D5 1/2 NS AT 200 INFUSING. BMP AND AM LABS JUST DRAWN. IS SIGNING OFF AND REQUEST ME TO CALL AND UPDATE DR. CARTER ([phone]) WHO IS NOW FOLLOWING PT UNTIL DR. ZAPIEN ARRIVES FOR DAY SHIFT. PT WITH STABLE VS.
[2021-05-06 04:28] LABS: ALBUMIN 2.4 G/DL (3.4-5.0); ANION GAP 12 (8-16); BLOOD UREA NITROGEN 14 MG/DL (7-18); BUN/CREATININE RATIO 14.4 (6.6-38.0); CALCIUM 6.9 MG/DL (8.5-10.1); CHLORIDE 110 MMOL/L (99-107); CREATININE 0.97 MG/DL (0.40-0.90); GLUCOSE 192 MG/DL (70-104); SODIUM 138 MMOL/L (135-145); TOTAL CARBON DIOXIDE 15.9 MMOL/L (24-32); eGFR 60 ML/MIN
[2021-05-06 04:29] LABS: PHOSPHORUS 1.9 MG/DL (2.3-4.5); POTASSIUM 4.9 MMOL/L (3.5-5.1)
--- NOTE | 2021-05-06 05:39 | NUR ---
MESSAGE LEFT FOR DR. CARTER TO UPDATE ON AM LABS AND IMPROVMENTS IN DKA
--- NOTE | 2021-05-06 06:14 | NUR ---
SPOKE WITH DR. CARTER AND SHE SPOKE WITH PT [email or web address]. PT WITH DINORA PHAM. STATES OK TO DRINK WATER, NO FOOD AT THIS TIME, CONTINUE DKA PROTOCOL, SHE WILL ORDER GLARGENE 20 U BID.
[2021-05-06] MEDS ORDERED: insulin glargine (Lantus) pen - multi-dose SQ SCH ×2 (08:00→21:00)
[2021-05-06] MEDS: budesonide 0.5mg/2ml UD nebule IH SCH ×2 (08:32→20:28)
[2021-05-06 09:11] LABS: ALANINE AMINOTRANSFERASE 36 U/L (12-78); ALBUMIN 2.5 G/DL (3.4-5.0); ALBUMIN/GLOBULIN RATIO 0.9 (1.1-1.5); ALKALINE PHOSPHATASE 77 IU/L (46-116); ANION GAP 14 (8-16); ASPARTATE AMINO TRANSFERASE 64 U/L (10-37); BILIRUBIN,TOTAL 0.3 MG/DL (0.1-1.0); BLOOD UREA NITROGEN 11 MG/DL (7-18); BUN/CREATININE RATIO 11.1 (6.6-38.0); CALCIUM 7.2 MG/DL (8.5-10.1); CHLORIDE 107 MMOL/L (99-107); CREATININE 0.99 MG/DL (0.40-0.90); GLUCOSE 140 MG/DL (70-104); MAGNESIUM 1.5 MG/DL (1.5-2.4); POTASSIUM 3.9 MMOL/L (3.5-5.1); SODIUM 140 MMOL/L (135-145); TOTAL CARBON DIOXIDE 18.7 MMOL/L (24-32); TOTAL PROTEIN 5.4 G/DL (6.4-8.2); eGFR 59 ML/MIN
[2021-05-06] MEDS: pregabalin 75mg capsule PO SCH ×3 (10:45→20:16)
[2021-05-06] MEDS: HYDROcodone/acetaminophen 10/325mg tab PO SCH ×4 (10:45→21:32)
[2021-05-06] MEDS: pantoprazole 40mg Tablet.DR PO SCH (10:45)
[2021-05-06] MEDS: pregabalin 25mg capsule PO SCH ×3 (10:45→20:15)
[2021-05-06] MEDS: HYDROchlorothiazide 25mg tablet PO SCH (10:46)
[2021-05-06] MEDS: lisinopril 2.5mg tablet PO SCH (10:46)
[2021-05-06] MEDS: potassium chloride 10mEq ER tablet PO SCH (10:46)
[2021-05-06] MEDS: aspirin 81mg tablet.DR PO SCH (10:46)
[2021-05-06] MEDS: diphenhydrAMINE 50 mg/ml inj IV SCH ×4 (10:47→23:22)
[2021-05-06] MEDS: LIDOcaine 5% patch TP SCH (10:48)
[2021-05-06] MEDS: levoFLOXACIN-Levaquin 500mg/D5 100 ML IV SCH (10:48)
[2021-05-06] MEDS: K and/or MAG REPLACEMENT MC SCH ×2 (13:10→19:23)
[2021-05-06] MEDS: apixaban 5mg tablet PO SCH ×2 (13:28→19:23)
[2021-05-06] MEDS ORDERED: glucagon, human recombinant 1mg kit SUBCUT PRN (14:40)
[2021-05-06] MEDS ORDERED: dextrose 50%-water 50ml dispensing syringe IV PRN ×2 (14:40)
[2021-05-06] MEDS ORDERED: dextrose ORAL solution 15 GM/59 ML bottle PO PRN ×2 (14:40)
[2021-05-06] MEDS: insulin Lispro (HumaLOG) vial - multi-dose SQ SCH ×2 (16:03→20:37)
--- NOTE | 2021-05-06 16:20 | NUR ---
PAGER ID: [phone] MESSAGE: Re: Juana Ferrari. Room: [facility]. Insulin drip will be turned off in 1 hour. Do you want any fluid running once drip is off? -Td PCU #[id number] -Dr. Marrufo paged concerning Pt's fluids
--- NOTE | 2021-05-06 17:05 | NUR ---
Insulin drip turned off. Will continue to monitor Pt's blood glucose as needed.
--- NOTE | 2021-05-06 17:15 | NUR ---
PAGER ID: [phone] MESSAGE: Re: Juana Ferrari. Room: 3014B. Insulin drip DC'd. Do you want fluids running? -Td [facility] #[id number] -Dr. Marrufo paged concerning order status for fluids
[2021-05-06 17:33] LABS: ALBUMIN 2.6 G/DL (3.4-5.0); ANION GAP 12 (8-16); BLOOD UREA NITROGEN 10 MG/DL (7-18); BUN/CREATININE RATIO 10.9 (6.6-38.0); CALCIUM 7.2 MG/DL (8.5-10.1); CHLORIDE 104 MMOL/L (99-107); CREATININE 0.92 MG/DL (0.40-0.90); GLUCOSE 101 MG/DL (70-104); POTASSIUM 3.3 MMOL/L (3.5-5.1); SODIUM 138 MMOL/L (135-145); TOTAL CARBON DIOXIDE 21.6 MMOL/L (24-32); eGFR 64 ML/MIN
[2021-05-06 18:00] VITALS: BP 85/52
--- NOTE | 2021-05-06 18:05 | NUR ---
Problems reprioritized. Patient report given, questions answered & plan of care reviewed with Maris AGUIRRE.
--- NOTE | 2021-05-06 18:16 | NUR ---
PAGER ID: [phone] MESSAGE: Re: Juana Ferrari. Room: 3014B. Pt complaining of heart burn/epigastric pain. Can I put order in for maalox PRN? -Td PCU #[id number] -Dr. Marrufo paged concerning Pt's heart burn.
--- NOTE | 2021-05-06 18:20 | NUR ---
Problems reprioritized. Patient report given, questions answered & plan of care reviewed with CARLA Theodore.
--- NOTE | 2021-05-06 19:14 | NUR ---
Paged Dr. Santacruz. PAGER ID: [phone] MESSAGE: Juana Ferrari. Room: 3014B. Pt is c/o heart burn/epigastric pain. Can I get an order for maalox PRN? - CARLA Pollock U x [phone]
[2021-05-06] MEDS: potassium Cl 20 mEq SR tablet PO PRN (19:23)
[2021-05-06] MEDS: famotidine 20mg tablet PO SCH (19:23)
[2021-05-06] MEDS: amitriptyline 10mg tablet PO SCH (20:15)
[2021-05-06] MEDS: PARoxetine 20mg tablet PO SCH (20:16)
[2021-05-06] MEDS: atorvastatin 10mg tablet PO SCH (20:16)
[2021-05-06] MEDS: albuterol 2.5 MG/3 ML nebule NEB PRN (20:28)
--- NOTE | 2021-05-06 21:42 | NUR ---
Paged Dr. Santacruz. PAGER ID: [phone] MESSAGE: Juana Ferrari. Room: 3014B. Pt is still c/o epigastric pain (pt stated, "it hurts to drink water, it anna") after 2 hours of taking Pepcid. She is asking for Maalox. - CARLA Pollock U x [phone]
[2021-05-06] MEDS ORDERED: mag hydrox/Alum hydrox/simeth 30ml oral suspension PO PRN (21:45)
[2021-05-06 22:00] VITALS: BP 92/55
[2021-05-06] MEDS ORDERED: VANCOMYCIN LEVEL IV ONE (23:30)
[2021-05-07] MEDS: potassium Cl 20 mEq SR tablet PO PRN (00:03)
[2021-05-07] MEDS: normal saline 1000ml 1,000 ML IV SCH (00:10)
--- NOTE | 2021-05-07 00:10 | NUR ---
patient refused ABG blood draw. states she is in too much pain and it can be down in the morning. mini gomes notified
[2021-05-07 02:00] VITALS: BP 90/54
[2021-05-07 06:00] VITALS: BP 98/57
--- NOTE | 2021-05-07 06:26 | NUR ---
Problems reprioritized. Patient report given, questions answered & plan of care reviewed with CARAL Santo.
--- NOTE | 2021-05-07 06:36 | NUR ---
Patient in room PCU 3014. I have received report from CARLA LEON, and had the opportunity to ask questions and assume patient care.
[2021-05-07] MEDS: K and/or MAG REPLACEMENT MC SCH (08:00)
[2021-05-07] MEDS: levoFLOXACIN-Levaquin 500mg/D5 100 ML IV SCH (09:09)
[2021-05-07] MEDS: LIDOcaine 5% patch TP SCH (09:13)
[2021-05-07] MEDS: diphenhydrAMINE 50 mg/ml inj IV SCH (09:14)
[2021-05-07] MEDS: apixaban 5mg tablet PO SCH (09:16)
[2021-05-07] MEDS: aspirin 81mg tablet.DR PO SCH (09:16)
[2021-05-07] MEDS: pregabalin 75mg capsule PO SCH ×2 (09:16→13:05)
[2021-05-07] MEDS: famotidine 20mg tablet PO SCH (09:20)
[2021-05-07] MEDS: lisinopril 2.5mg tablet PO SCH (09:21)
[2021-05-07] MEDS: HYDROcodone/acetaminophen 10/325mg tab PO SCH (09:21)
[2021-05-07] MEDS: pantoprazole 40mg Tablet.DR PO SCH (09:22)
[2021-05-07] MEDS: potassium chloride 10mEq ER tablet PO SCH (09:22)
[2021-05-07] MEDS: HYDROchlorothiazide 25mg tablet PO SCH (09:22)
[2021-05-07] MEDS: pregabalin 25mg capsule PO SCH ×2 (09:23→13:05)
[2021-05-07] MEDS ORDERED: potassium Cl 20 mEq SR tablet PO PRN ×2 (09:35)
[2021-05-07] MEDS ORDERED: magnesium Cl slow-release 64mg tablet PO PRN (09:35)
[2021-05-07] MEDS ORDERED: potassium Cl 40MEQ/1/2NS 520ml 520 ML IV PRN (09:35)
[2021-05-07] MEDS ORDERED: magnesium 4gm in 100ml NS 100 ML IV PRN (09:35)
[2021-05-07] MEDS: budesonide 0.5mg/2ml UD nebule IH SCH (09:43)
[2021-05-07] MEDS: insulin Lispro (HumaLOG) vial - multi-dose SQ SCH (10:16)
[2021-05-07 10:21] LABS: BASOPHILS % (AUTO) 0.4 % (0-1); EOSINOPHILS % (AUTO) 0.3 % (0-6); HEMATOCRIT 34.8 % (35.0-45.0); HEMOGLOBIN 11.5 g/dl (12.0-16.0); LYMPHOCYTES # (AUTO) 1.2 X10'3 (1.1-4.8); LYMPHOCYTES % (AUTO) 20.7 % (21-51); MEAN CORPUSCULAR HEMOGLOBIN 28.3 PG (27.0-31.0); MEAN PLATELET VOLUME 9.2 FL (7.4-10.4); MONOCYTES # (AUTO) 0.3 X10'3 (0-0.9); MONOCYTES % (AUTO) 4.7 % (2-12); NEUTROPHILS # (AUTO) 4.3 X10'3 (1.8-7.7); NEUTROPHILS % (AUTO) 73.9 % (42-75); PLATELET COUNT 102 X10'3 (140-440); RED BLOOD COUNT 4.05 X10'6 (4.20-5.60); RED CELL DISTRIBUTION WIDTH 14.9 % (11.5-14.5); WHITE BLOOD COUNT 5.9 X10'3 (4.5-11.0)
[2021-05-07 10:38] LABS: ALANINE AMINOTRANSFERASE 165 U/L (12-78); ALBUMIN 2.6 G/DL (3.4-5.0); ALKALINE PHOSPHATASE 114 IU/L (46-116); ANION GAP 10 (8-16); ASPARTATE AMINO TRANSFERASE 404 U/L (10-37); BILIRUBIN,TOTAL 0.5 MG/DL (0.1-1.0); BLOOD UREA NITROGEN 11 MG/DL (7-18); BUN/CREATININE RATIO 14.7 (6.6-38.0); CALCIUM 7.4 MG/DL (8.5-10.1); CHLORIDE 104 MMOL/L (99-107); CREATININE 0.75 MG/DL (0.40-0.90); GLUCOSE 296 MG/DL (70-104); MAGNESIUM 1.5 MG/DL (1.5-2.4); POTASSIUM 3.8 MMOL/L (3.5-5.1); SODIUM 138 MMOL/L (135-145); TOTAL PROTEIN 5.3 G/DL (6.4-8.2); eGFR 81 ML/MIN
[2021-05-07 11:00] VITALS: BP 132/97
[2021-05-07] MEDS ORDERED: LEVO500T89 PO (11:06)
--- NOTE | 2021-05-07 14:25 | NUR ---
BELONGINGS GATHERED WITH PT. DISCHARGE INSTRUCTIONS REVIEWED WITH PT AND PT GIVEN OPPORTUNITY TO ASK QUESTIONS. PT STABLE FOR DISCHARGE PER MD. PIVS REMOVED WITH TIPS INTACT, PROCEDURE TOLERATED WELL BY PT. CASE MANAGEMENT MADE APPOINTMENT WITH MD ON 05/11/21 AT 1510, THIS INFORMATION WAS WRITTEN ON DISCHARGE PAPERWORK SEVERAL TIMES BY THIS NURSE. PT GIVEN EDUCATIONAL MATERIAL ON CONDITION WAS EDUCATED ON DIET AND SKIN AND FOOT CARE. PT WAS TRANSPORTED HOME BY A FAMILY MEMBER. PT WAS TRANSFERRED TO A PRIVATE VEHICLE BY STAFF.
[2021-05-07] MEDS ORDERED: K and/or MAG REPLACEMENT MC SCH (20:00)
== END 2021-05-07 16:46 | disposition home or self-care (01) | DRG 420 ==
LOC: ER 08:07 → ED HOLD 17:46 → PCU 3S 05-06 15:45
PROVIDERS: ADMIT Internal Medicine Critical Care Medicine; ATTEND Internal Medicine Critical Care Medicine
DX: E11.10 Type 2 diabetes mellitus with ketoacidosis without coma (principal); G93.41 Metabolic encephalopathy; I48.91 Unspecified atrial fibrillation; I11.0 Hypertensive heart disease with heart failure; I50.9 Heart failure, unspecified; D72.825 Bandemia; E86.0 Dehydration; F32.9 Major depressive disorder, single episode, unspecified; G89.29 Other chronic pain; K21.9 Gastro-esophageal reflux disease without esophagitis; M54.9 Dorsalgia, unspecified; E78.00 Pure hypercholesterolemia, unspecified; W18.39XA Other fall on same level, initial encounter; E78.5 Hyperlipidemia, unspecified; F41.1 Generalized anxiety disorder; J44.9 Chronic obstructive pulmonary disease, unspecified; Z80.8 Family history of malignant neoplasm of other organs or systems; Z85.41 Personal history of malignant neoplasm of cervix uteri; Z90.710 Acquired absence of both cervix and uterus; Z91.19 Patient's noncompliance with other medical treatment and regimen; Z88.0 Allergy status to penicillin; Z88.2 Allergy status to sulfonamides; Z88.8 Allergy status to other drugs, medicaments and biological substances; Z90.49 Acquired absence of other specified parts of digestive tract; Z56.0 Unemployment, unspecified; Z79.899 Other long term (current) drug therapy; Z79.4 Long term (current) use of insulin; Y93.89 Activity, other specified; Y92.098 Other place in other non-institutional residence as the place of occurrence of the external cause; Y99.8 Other external cause status
CPT/HCPCS: 36415; 36600; 70450; 71045; 71100; 72074; 80048; 80053; 81001; 82803; 82947; 82948; 83605; 83735; 84100; 84132; 84145; 85007; 85018; 85025; 85027; 87040; 87081; 87088; 93005; 94640; 94760; 96361; 96365; 96366; 96375; 96376; 99285; G0378; J1200; J1815; J1956; J2405; J2930; J3370; J3490; J7030; J7120; J7626

== ENCOUNTER 2021-05-18 23:21 | Emergency (ER) | payer MEDICAID ==
[~2021-05-18] VITALS: Ht 170.2 cm; Wt 65.0 kg
[~2021-05-18 23:21] MED LIST changes: -ALEN70TA80 PO
[2021-05-19 00:02] LABS: CLARITY,URINE CLEAR (Clear); COLOR,URINE YELLOW (Yellow); GLUCOSE, URINE 250 mg/dl (Neg); KETONES,URINE >=80 mg/dl (Neg); LEUKOCYTE ESTERASE ,URINE NEGATIVE (Neg); NITRITES, URINE NEGATIVE (Neg); OCCULT BLOOD,URINE NEGATIVE (Neg); PROTEIN,URINE 100 mg/dl (Neg)
[2021-05-19 00:10] LABS: BASOPHILS # (AUTO) 0.1 X10'3 (0-0.2); BASOPHILS % (AUTO) 0.5 % (0-1); EOSINOPHILS # (AUTO) 0.1 X10'3 (0-0.9); EOSINOPHILS % (AUTO) 0.9 % (0-6); HEMATOCRIT 46.7 % (35.0-45.0); HEMOGLOBIN 15.4 g/dl (12.0-16.0); LYMPHOCYTES # (AUTO) 2.4 X10'3 (1.1-4.8); LYMPHOCYTES % (AUTO) 19.8 % (21-51); MEAN CORPUSCULAR HEMOGLOBIN 28.5 PG (27.0-31.0); MEAN CORPUSCULAR HGB CONC 32.9 g/dL (33.0-36.5); MEAN CORPUSCULAR VOLUME 86.8 FL (78-98); MEAN PLATELET VOLUME 8.1 FL (7.4-10.4); MONOCYTES # (AUTO) 0.9 X10'3 (0-0.9); MONOCYTES % (AUTO) 7.4 % (2-12); NEUTROPHILS # (AUTO) 8.7 X10'3 (1.8-7.7); NEUTROPHILS % (AUTO) 71.4 % (42-75); PLATELET COUNT 311 X10'3 (140-440); RED BLOOD COUNT 5.38 X10'6 (4.20-5.60); RED CELL DISTRIBUTION WIDTH 15.2 % (11.5-14.5); WHITE BLOOD COUNT 12.2 X10'3 (4.5-11.0)
[2021-05-19 00:12] LABS: UA COLLECTION TYPE CLN CATCH MIDSTREAM; URINE AMPHETAMINE SCREEN NEGATIVE (Neg); URINE BARBITUATE SCREEN NEGATIVE (Neg); URINE BENZODIAZEPINES SCREEN POSITIVE (Neg); URINE CANNABINOID SCREEN NEGATIVE (Neg); URINE COCAINE SCREEN NEGATIVE (Neg); URINE METHADONE SCREEN NEGATIVE (Neg); URINE OPIATE SCREEN POSITIVE (Neg); URINE PHENCYCLIDINE SCREEN NEGATIVE (Neg)
[2021-05-19 00:13] LABS: ALANINE AMINOTRANSFERASE 32 U/L (12-78); ALBUMIN 3.6 G/DL (3.4-5.0); ALBUMIN/GLOBULIN RATIO 0.9 (1.1-1.5); ALKALINE PHOSPHATASE 163 IU/L (46-116); AMYLASE 55 U/L (25-115); ANION GAP 19 (8-16); ASPARTATE AMINO TRANSFERASE 11 U/L (10-37); BILIRUBIN,TOTAL 0.6 MG/DL (0.1-1.0); BLOOD UREA NITROGEN 11 MG/DL (7-18); BUN/CREATININE RATIO 8.2 (6.6-38.0); CALCIUM 8.5 MG/DL (8.5-10.1); CHLORIDE 100 MMOL/L (99-107); CREATININE 1.34 MG/DL (0.40-0.90); GLUCOSE 224 MG/DL (70-104); LIPASE < 50 U/L (73-393); MAGNESIUM 2.4 MG/DL (1.5-2.4); POTASSIUM 4.2 MMOL/L (3.5-5.1); SODIUM 137 MMOL/L (135-145); TOTAL CARBON DIOXIDE 18.1 MMOL/L (24-32); TOTAL PROTEIN 7.8 G/DL (6.4-8.2); eGFR 42 ML/MIN
[2021-05-19 00:19] LABS: BACTERIA,URINE NONE SEEN /HPF (Neg); MUCUS STRANDS FEW /LPF (Neg); RBC,URINE NONE SEEN /HPF (0-2); SQUAMOUS EPITHELIAL CELL,UR FEW /LPF (FEW); WBC,URINE 0-4 /HPF (0-4)
[2021-05-19 00:20] LABS: HYALINE CASTS 0-3 /LPF (NEGATIVE)
[2021-05-19 00:47] LABS: ETHANOL < 0.010 GM/DL (0.0-0.010)
[2021-05-19] MEDS ORDERED: normal saline 1000ML IV soln IVB ONE (00:50)
[2021-05-19] MEDS ORDERED: insulin regular, human U-100 3ml vial - multi-dose IV ONE (00:50)
[2021-05-19] MEDS ORDERED: ondansetron/PF 4mg/2ml inj IV ONE (00:50)
[2021-05-19] MEDS ORDERED: insulin regular, human 10 units/0.1 ml syringe IV ONE (00:55)
[2021-05-19] MEDS ORDERED: neomy sulf/polymyx B sulf/HC 10ml otic suspension RIGHT EAR ONE (02:05)
[2021-05-19] MEDS ORDERED: haloperidol lactate 5mg/ml inj IM ONE (02:20)
[2021-05-19] MEDS ORDERED: normal saline 1000ml 1,000 ML IV ONE (02:30)
--- NOTE | 2021-05-19 04:01 | NUR ---
PO CHALLENGED PT WITH 50 ML WATER. PT TOLERATED WELL. AND FELL BACK ASLEEP.
[2021-05-19] MEDS ORDERED: ONDA4TAB6 PO (04:17)
[2021-05-19] MEDS ORDERED: NEOM10DR45 RIGHT EAR (04:17)
--- NOTE | 2021-05-19 04:31 | NUR ---
attempted to call pt family for ride home. pt refusing to give alternative phone number other than one number in the demographics. charge machine operator aware.
[2021-05-19 04:40] LABS: ALBUMIN 2.6 G/DL (3.4-5.0); ANION GAP 12 (8-16); BLOOD UREA NITROGEN 9 MG/DL (7-18); BUN/CREATININE RATIO 9.6 (6.6-38.0); CALCIUM 7.1 MG/DL (8.5-10.1); CHLORIDE 109 MMOL/L (99-107); CREATININE 0.94 MG/DL (0.40-0.90); GLUCOSE 154 MG/DL (70-104); POTASSIUM 3.7 MMOL/L (3.5-5.1); SODIUM 141 MMOL/L (135-145); TOTAL CARBON DIOXIDE 19.6 MMOL/L (24-32); eGFR 63 ML/MIN
[2021-05-19 04:42] VITALS: BP 97/62
[2021-05-19] MEDS ORDERED: iohexol 350MG/ML 100ml bottle IV ONE (04:44)
== END 2021-05-19 05:14 | disposition home or self-care (01) ==
LOC: ER 05-19 03:40
DX: R10.13 Epigastric pain (principal); R11.2 Nausea with vomiting, unspecified; H60.91 Unspecified otitis externa, right ear; E10.10 Type 1 diabetes mellitus with ketoacidosis without coma; H92.01 Otalgia, right ear; I48.91 Unspecified atrial fibrillation; I11.0 Hypertensive heart disease with heart failure; I50.9 Heart failure, unspecified; E78.00 Pure hypercholesterolemia, unspecified; J45.909 Unspecified asthma, uncomplicated; K21.9 Gastro-esophageal reflux disease without esophagitis; G89.29 Other chronic pain; Z87.410 Personal history of cervical dysplasia; Z90.49 Acquired absence of other specified parts of digestive tract; Z90.710 Acquired absence of both cervix and uterus; Z56.0 Unemployment, unspecified; Z88.0 Allergy status to penicillin; Z88.1 Allergy status to other antibiotic agents; Z88.2 Allergy status to sulfonamides; Z88.6 Allergy status to analgesic agent; Z88.8 Allergy status to other drugs, medicaments and biological substances; Z79.82 Long term (current) use of aspirin; Z79.4 Long term (current) use of insulin; Z79.2 Long term (current) use of antibiotics; Z79.899 Other long term (current) drug therapy
CPT/HCPCS: 36415; 80048; 80053; 80305; 80320; 81001; 81003; 82150; 82948; 83690; 83735; 85025; 96361; 96372; 96374; 96375; 99285; J1630; J2405; J7030; Q9967; J1815

== ENCOUNTER 2021-06-21 16:27 | Inpatient (IN) | payer MEDICAID ==
[~2021-06-21] VITALS: Ht 162.6 cm; Wt 69.5 kg
[~2021-06-21 16:27] MED LIST changes: +ONDA4TAB6 PO
[2021-06-21] MEDS ORDERED: insulin regular, human 10 units/0.1 ml syringe IV PRN (16:45)
[2021-06-21] MEDS ORDERED: potassium CL 20mEq in D5-1/2NS 1,000 ML IV PRN ×2 (16:45→20:15)
[2021-06-21] MEDS ORDERED: normal saline 1000ml 1,000 ML IV SCH (16:45)
[2021-06-21 17:08] LABS: ABG BASE EXCESS -22.2 mmol/L (-2.0-2.0); ABG HCO3 3.8 mmol/L (22.0-26.0); ABG OXYGEN SATURATION 97.8 % (94-97); ABG PCO2 (T) 11.2 mmHg (32.0-45.0); ABG PO2 (T) 122.5 mmHg (75.0-100.0); ALLEN'S TEST POSITIVE; FCOHb 0.7 % (0.0-3.9); FMetHb 0.4 % (0.0-1.5); FO2Hb 96.7 % (94-97); TOTAL HEMOGLOBIN 15.3 G/dl (12.0-16.0)
[2021-06-21] MEDS: normal saline 1000ml 1,000 ML IV SCH ×6 (17:15→21:42)
[2021-06-21] MEDS: Insulin Reg/NS 100units/100mL 100 ML IV SCH (17:16)
[2021-06-21 17:28] LABS: BASOPHILS # (AUTO) 0.1 X10'3 (0-0.2); BASOPHILS % (AUTO) 0.4 % (0-1); EOSINOPHILS % (AUTO) 0.1 % (0-6); LYMPHOCYTES # (AUTO) 0.7 X10'3 (1.1-4.8); LYMPHOCYTES % (AUTO) 5.8 % (21-51); MEAN PLATELET VOLUME 10.7 FL (7.4-10.4); MONOCYTES # (AUTO) 0.3 X10'3 (0-0.9); NEUTROPHILS # (AUTO) 11.5 X10'3 (1.8-7.7); NEUTROPHILS % (AUTO) 91.7 % (42-75); PLATELET COUNT 258 X10'3 (140-440); WHITE BLOOD COUNT 12.5 X10'3 (4.5-11.0)
[2021-06-21 17:43] LABS: ALANINE AMINOTRANSFERASE 34 U/L (12-78); ALBUMIN 3.9 G/DL (3.4-5.0); ALBUMIN/GLOBULIN RATIO 1.1 (1.1-1.5); ALKALINE PHOSPHATASE 147 IU/L (46-116); ANION GAP 36 (8-16); ASPARTATE AMINO TRANSFERASE 21 U/L (10-37); BILIRUBIN,TOTAL 0.7 MG/DL (0.1-1.0); BLOOD UREA NITROGEN 34 MG/DL (7-18); BUN/CREATININE RATIO 21.1 (6.6-38.0); CALCIUM 8.9 MG/DL (8.5-10.1); CHLORIDE 90 MMOL/L (99-107); CREATININE 1.61 MG/DL (0.40-0.90); MAGNESIUM 2.4 MG/DL (1.5-2.4); POTASSIUM 5.7 MMOL/L (3.5-5.1); SODIUM 134 MMOL/L (135-145); TOTAL PROTEIN 7.6 G/DL (6.4-8.2); eGFR 34 ML/MIN
[2021-06-21 17:44] LABS: ETHANOL < 0.010 GM/DL (0.0-0.010)
[2021-06-21 17:45] LABS: GLUCOSE 700 MG/DL (70-104); TOTAL CARBON DIOXIDE 8.3 MMOL/L (24-32)
[2021-06-21 18:00] LABS: HEMATOCRIT 47.8 % (35.0-45.0); HEMOGLOBIN 15.7 g/dl (12.0-16.0); MEAN CORPUSCULAR VOLUME 89.6 FL (78-98); RED BLOOD COUNT 5.33 X10'6 (4.20-5.60)
[2021-06-21 18:01] LABS: MEAN CORPUSCULAR HEMOGLOBIN 29.5 PG (27.0-31.0); MEAN CORPUSCULAR HGB CONC 32.9 g/dL (33.0-36.5); RED CELL DISTRIBUTION WIDTH 14.5 % (11.5-14.5)
[2021-06-21 18:02] LABS: ANISOCYTOSIS 1+; LARGE PLATELETS FEW; PLATELET ESTIMATE NORMAL
[2021-06-21 18:03] LABS: ACANTHOCYTES FEW; BURR CELLS FEW; POIKILOCYTOSIS FEW; STOMATOCYTES FEW
[2021-06-21] MEDS ORDERED: normal saline 1000ML IV soln IVB ONE (18:25)
[2021-06-21 18:56] LABS: URINE AMPHETAMINE SCREEN NEGATIVE (Neg); URINE BARBITUATE SCREEN NEGATIVE (Neg); URINE BENZODIAZEPINES SCREEN NEGATIVE (Neg); URINE CANNABINOID SCREEN NEGATIVE (Neg); URINE COCAINE SCREEN NEGATIVE (Neg); URINE METHADONE SCREEN NEGATIVE (Neg); URINE OPIATE SCREEN NEGATIVE (Neg); URINE PHENCYCLIDINE SCREEN NEGATIVE (Neg)
[2021-06-21 19:01] LABS: CLARITY,URINE CLEAR (Clear); COLOR,URINE YELLOW (Yellow); UA COLLECTION TYPE VOIDED
[2021-06-21 19:02] LABS: GLUCOSE, URINE >=1000 mg/dl (Neg); KETONES,URINE >=160 mg/dl (Neg); PROTEIN,URINE TRACE mg/dl (Neg)
[2021-06-21 19:03] LABS: LEUKOCYTE ESTERASE ,URINE NEGATIVE (Neg); NITRITES, URINE NEGATIVE (Neg); OCCULT BLOOD,URINE NEGATIVE (Neg); UROBILINOGEN,URINE 0.2 E.U/dL (0.2-1.0)
[2021-06-21 19:07] LABS: BACTERIA,URINE NONE SEEN /HPF (Neg); HYALINE CASTS 0-3 /LPF (NEGATIVE); MUCUS STRANDS FEW /LPF (Neg); RBC,URINE 0-2 /HPF (0-2); SQUAMOUS EPITHELIAL CELL,UR FEW /LPF (FEW); WBC,URINE NONE SEEN /HPF (0-4); YEAST FEW /HPF (NEGATIVE)
--- NOTE | 2021-06-21 19:46 | NUR ---
Spoke with MD from ER; pt labs have been ordered but they do not want them done until bicarb has infused; labor relations or personnel negotiator notified
[2021-06-21] MEDS ORDERED: potassium Cl 20 mEq SR tablet PO PRN ×4 (20:10→20:15)
[2021-06-21] MEDS ORDERED: magnesium 2GM in 50ml NS 50 ML IV PRN (20:10)
[2021-06-21] MEDS ORDERED: potassium Cl 40MEQ/1/2NS 520ml 520 ML IV PRN ×4 (20:10→20:15)
[2021-06-21] MEDS: sodium bicarbonate (8.4%) inj. 50 MEQ in dextrose 5%-water 1,000 ML IV SCH (20:10)
[2021-06-21] MEDS ORDERED: magnesium 4gm in 100ml NS 100 ML IV PRN (20:10)
[2021-06-21] MEDS ORDERED: magnesium Cl slow-release 64mg tablet PO PRN (20:10)
[2021-06-21] MEDS ORDERED: insulin regular, human U-100 3ml vial - multi-dose IV PRN (20:15)
[2021-06-21] MEDS ORDERED: sodium phosphate inj. 30 MMOL in dextrose 5%-water 250 ML IV PRN (20:15)
[2021-06-21] MEDS ORDERED: Insulin Reg/NS 100units/100mL 100 ML IV SCH (20:15)
[2021-06-21] MEDS ORDERED: sodium bicarbonate (8.4%) inj. 100 MEQ in dextrose 5% water 500ml 500 ML IV PRN (20:15)
[2021-06-21] MEDS ORDERED: Neutra Phos packet PO PRN (20:15)
[2021-06-21] MEDS ORDERED: sodium bicarbonate (8.4%) inj. 50 MEQ in dextrose 5% water 500ml 250 ML IV PRN (20:15)
[2021-06-21] MEDS ORDERED: sodium phosphate inj. 15 MMOL in dextrose 5%-water 250 ML IV PRN (20:15)
[2021-06-21] MEDS ORDERED: traZODone 50mg tablet PO PRN (21:00)
[2021-06-21] MEDS ORDERED: albuterol 2.5 MG/3 ML nebule NEB PRN (21:15)
[2021-06-21] MEDS: acetaminophen 325mg tablet PO PRN (21:56)
[2021-06-21] MEDS: lisinopril 2.5mg tablet PO SCH (21:56)
[2021-06-21] MEDS: amitriptyline 10mg tablet PO SCH (22:52)
[2021-06-21] MEDS: PARoxetine 20mg tablet PO SCH (22:52)
--- NOTE | 2021-06-21 23:28 | NUR ---
PT GLUCOSE IS NOW IN 160'S RANGE; PER PROTOCOL INSULIN STILL AT 5U AND D5-1/2NS INITIATED; WILL CTM Q2HR ACCUCHECKS AND NEURO STATUS; PT REMAINS AT AOX4 GCS15 WITH NAD; ATTACHED TO MONITOR;
--- NOTE | 2021-06-22 01:39 | NUR ---
Pt Glucose is stable after recheck after initiation of D5 1/2NS with the insulin; will continue to monitor glucose; pt resting well and in NAD; bicarb still infusing; then will recheck lytes/abg per MD post bicarb
--- NOTE | 2021-06-22 02:47 | NUR ---
bicarb protocol complete; waiting for RT to recheck abg/lytes
[2021-06-22] MEDS: normal saline 1000ml 1,000 ML IV SCH ×3 (04:15→12:15)
--- NOTE | 2021-06-22 04:16 | NUR ---
glucose 90; D5 1/2NS increased to 200mL/hr to balance; will recheck glucose in 1hr or less if symptomatic
--- NOTE | 2021-06-22 04:24 | NUR ---
Paged RT for ABG to recheck post bicarb/insulin balance
[2021-06-22 05:32] LABS: ALBUMIN 2.9 G/DL (3.4-5.0); ANION GAP 9 (8-16); BLOOD UREA NITROGEN 25 MG/DL (7-18); BUN/CREATININE RATIO 21.7 (6.6-38.0); CALCIUM 7.6 MG/DL (8.5-10.1); CHLORIDE 108 MMOL/L (99-107); CREATININE 1.15 MG/DL (0.40-0.90); GLUCOSE 144 MG/DL (70-104); MAGNESIUM 1.8 MG/DL (1.5-2.4); PHOSPHORUS 2.8 MG/DL (2.3-4.5); POTASSIUM 3.4 MMOL/L (3.5-5.1); SODIUM 140 MMOL/L (135-145); eGFR 50 ML/MIN
[2021-06-22 05:44] LABS: BASOPHILS % (AUTO) 0.3 % (0-1); EOSINOPHILS % (AUTO) 0.2 % (0-6); HEMOGLOBIN 12.5 g/dl (12.0-16.0); LYMPHOCYTES % (AUTO) 18.3 % (21-51); MEAN CORPUSCULAR HEMOGLOBIN 28.8 PG (27.0-31.0); MEAN CORPUSCULAR HGB CONC 32.9 g/dL (33.0-36.5); MEAN CORPUSCULAR VOLUME 87.7 FL (78-98); MEAN PLATELET VOLUME 9.7 FL (7.4-10.4); MONOCYTES # (AUTO) 0.8 X10'3 (0-0.9); MONOCYTES % (AUTO) 7.6 % (2-12); NEUTROPHILS # (AUTO) 8.2 X10'3 (1.8-7.7); NEUTROPHILS % (AUTO) 73.6 % (42-75); PLATELET COUNT 215 X10'3 (140-440); RED BLOOD COUNT 4.34 X10'6 (4.20-5.60); RED CELL DISTRIBUTION WIDTH 15.2 % (11.5-14.5); WHITE BLOOD COUNT 11.1 X10'3 (4.5-11.0)
[2021-06-22] MEDS: sodium bicarbonate (8.4%) inj. 50 MEQ in dextrose 5%-water 1,000 ML IV SCH (05:50)
--- NOTE | 2021-06-22 06:35 | NUR ---
PT D5 1/2 NS TURNED UP TO 250 AFTER GLUCOSE CHECK OF 70. DAYSHIFT RN NOTIFIED.
[2021-06-22] MEDS: pantoprazole 40mg Tablet.DR PO SCH (07:30)
--- NOTE | 2021-06-22 07:35 | NUR ---
ACCUCHECK 66. INSULIN DRIP STOPPED. D5.45 CONTINUES AT 250 ML/HR
[2021-06-22] MEDS ORDERED: K and/or MAG REPLACEMENT MC SCH (08:00)
[2021-06-22] MEDS: K and/or MAG REPLACEMENT MC SCH ×2 (08:00→20:00)
[2021-06-22] MEDS: heparin, porcine 5000 units/ml vial SQ SCH ×3 (08:00→20:04)
[2021-06-22] MEDS ORDERED: dextrose 50%-water 50ml dispensing syringe IV PRN ×2 (08:05)
[2021-06-22] MEDS ORDERED: glucagon, human recombinant 1mg kit SUBCUT PRN (08:05)
[2021-06-22] MEDS ORDERED: dextrose ORAL solution 15 GM/59 ML bottle PO PRN ×2 (08:05)
[2021-06-22] MEDS ORDERED: MESSAGE TO PHARMACY PO ONE (08:05)
[2021-06-22 09:00] VITALS: BP 109/57
[2021-06-22 09:10] LABS: HEMOGLOBIN A1C 10.6 % (4.5-6.2)
[2021-06-22] MEDS: acetaminophen 325mg tablet PO PRN (09:44)
[2021-06-22] MEDS: ondansetron/PF 4mg/2ml inj IV PRN ×2 (09:53→20:43)
[2021-06-22] MEDS: pregabalin 25mg capsule PO SCH ×3 (09:59→20:46)
[2021-06-22] MEDS: apixaban 5mg tablet PO SCH ×2 (10:00→20:03)
[2021-06-22] MEDS: aspirin 81mg, enteric-coated 1 TAB TABLET.DR PO SCH (10:00)
[2021-06-22] MEDS: atorvastatin 10mg tablet PO SCH (10:01)
[2021-06-22] MEDS: lisinopril 2.5mg tablet PO SCH (10:03)
[2021-06-22] MEDS: insulin Lispro (HumaLOG) vial - multi-dose SQ SCH ×4 (10:17→21:39)
--- NOTE | 2021-06-22 10:59 | NUR ---
PAGER ID: [phone] MESSAGE: Pt Juana Ferarri is requesting [place] for leg and generalized pain, it is on her med rec but was held. Pls advise, Lulu [id number]
[2021-06-22 11:00] VITALS: BP 107/63
--- NOTE | 2021-06-22 13:10 | NUR ---
PAGER ID: [phone] MESSAGE: Pt Juana Ferrari 3011 is complaining of 10/10 pain in abdomen from vomiting earlier, requesting her home [place], pls advise. Lulu AGUIRRE [id number]
[2021-06-22] MEDS: Insulin Reg/NS 100units/100mL 100 ML IV SCH (13:12)
[2021-06-22] MEDS: HYDROcodone/acetaminophen 10/325mg tab PO PRN ×2 (13:44→20:43)
[2021-06-22 15:30] VITALS: BP_SYST 82; BP_SYST 90; BP_SYST 93; BP_DIAS 42; BP_DIAS 58; BP_DIAS 62
[2021-06-22 18:00] VITALS: BP 85/54
--- NOTE | 2021-06-22 18:30 | NUR ---
Patient in room PCU 3011. I have received report from Lulu AGUIRRE and had the opportunity to ask questions and assume patient care.
[2021-06-22] MEDS: PARoxetine 20mg tablet PO SCH (20:46)
[2021-06-22] MEDS: amitriptyline 10mg tablet PO SCH (20:46)
[2021-06-22] MEDS ORDERED: insulin glargine (Lantus) pen - multi-dose SQ SCH (21:00)
[2021-06-23 01:20] VITALS: BP 88/44
--- NOTE | 2021-06-23 01:20 | NUR ---
notified PAGER ID: [phone] MESSAGE: [phone] Juana Ferrari admitted 06/21 for DKA. Not on insulin gtt any longer. PT c/o of left side numbess "like its not there" she states. BP is 88/44 HR 68 resp 18 afebrile Please advise Akil [phone]
[2021-06-23 02:00] VITALS: BP 90/58
--- NOTE | 2021-06-23 02:51 | NUR ---
notified PAGER ID: [phone] MESSAGE: [phone] CT results are back BP is now 94/48 HR 70 still c/o of facial and Left sided numbness lungs clear Staneen [phone] (117 character message out of a maximum of 240)
[2021-06-23 06:00] VITALS: BP 95/55
--- NOTE | 2021-06-23 06:24 | NUR ---
Problems reprioritized. Patient report given, questions answered & plan of care reviewed with Aileen AGUIRRE.
--- NOTE | 2021-06-23 06:29 | NUR ---
Patient in room PCU 3011. I have received report from Akil morse and had the opportunity to ask questions and assume patient care.
[2021-06-23] MEDS: pantoprazole 40mg Tablet.DR PO SCH (07:17)
[2021-06-23] MEDS: pregabalin 25mg capsule PO SCH (07:17)
[2021-06-23 07:19] VITALS: BP_SYST 95
[2021-06-23] MEDS: lisinopril 2.5mg tablet PO SCH (07:19)
[2021-06-23] MEDS: apixaban 5mg tablet PO SCH (07:20)
[2021-06-23] MEDS: aspirin 81mg, enteric-coated 1 TAB TABLET.DR PO SCH (07:20)
[2021-06-23] MEDS: atorvastatin 10mg tablet PO SCH (07:20)
[2021-06-23 07:30] LABS: BASOPHILS % (AUTO) 0.7 % (0-1); EOSINOPHILS # (AUTO) 0.1 X10'3 (0-0.9); HEMATOCRIT 34.4 % (35.0-45.0); HEMOGLOBIN 11.5 g/dl (12.0-16.0); LYMPHOCYTES # (AUTO) 2.3 X10'3 (1.1-4.8); LYMPHOCYTES % (AUTO) 34.2 % (21-51); MEAN CORPUSCULAR HEMOGLOBIN 28.8 PG (27.0-31.0); MEAN CORPUSCULAR HGB CONC 33.4 g/dL (33.0-36.5); MEAN CORPUSCULAR VOLUME 86.2 FL (78-98); MEAN PLATELET VOLUME 9.2 FL (7.4-10.4); MONOCYTES # (AUTO) 0.5 X10'3 (0-0.9); MONOCYTES % (AUTO) 7.2 % (2-12); NEUTROPHILS # (AUTO) 3.7 X10'3 (1.8-7.7); NEUTROPHILS % (AUTO) 55.9 % (42-75); PLATELET COUNT 163 X10'3 (140-440); RED BLOOD COUNT 3.99 X10'6 (4.20-5.60); RED CELL DISTRIBUTION WIDTH 15.2 % (11.5-14.5); WHITE BLOOD COUNT 6.6 X10'3 (4.5-11.0)
[2021-06-23 07:51] LABS: ALBUMIN 2.7 G/DL (3.4-5.0); ANION GAP 9 (8-16); BLOOD UREA NITROGEN 11 MG/DL (7-18); BUN/CREATININE RATIO 12.4 (6.6-38.0); CALCIUM 8.1 MG/DL (8.5-10.1); CHLORIDE 103 MMOL/L (99-107); CREATININE 0.89 MG/DL (0.40-0.90); GLUCOSE 184 MG/DL (70-104); MAGNESIUM 1.9 MG/DL (1.5-2.4); SODIUM 134 MMOL/L (135-145); TOTAL CARBON DIOXIDE 22.3 MMOL/L (24-32); eGFR 67 ML/MIN
[2021-06-23] MEDS: K and/or MAG REPLACEMENT MC SCH (08:00)
[2021-06-23] MEDS: insulin Lispro (HumaLOG) vial - multi-dose SQ SCH (08:43)
--- NOTE | 2021-06-23 11:25 | NUR ---
pt iv was dc intact, all belongings were gathered and put in pt bag, pt discharge was gone over and given to pt, pt had no medications in pharmacy, was wheeled down in a wheelchair and left in a private vehicle with family
== END 2021-06-23 11:17 | disposition home or self-care (01) | DRG 420 ==
LOC: ER 16:28 → ED HOLD 20:13 → PCU 3S 06-22 08:35
PROVIDERS: ADMIT Internal Medicine; ATTEND Internal Medicine
DX: E11.10 Type 2 diabetes mellitus with ketoacidosis without coma (principal); G93.41 Metabolic encephalopathy; E78.5 Hyperlipidemia, unspecified; I48.20 Chronic atrial fibrillation, unspecified; E86.0 Dehydration; E87.5 Hyperkalemia; I11.0 Hypertensive heart disease with heart failure; I50.9 Heart failure, unspecified; F32.9 Major depressive disorder, single episode, unspecified; J45.909 Unspecified asthma, uncomplicated; G89.29 Other chronic pain; M54.9 Dorsalgia, unspecified; K21.9 Gastro-esophageal reflux disease without esophagitis; E11.42 Type 2 diabetes mellitus with diabetic polyneuropathy; F41.9 Anxiety disorder, unspecified; Z90.710 Acquired absence of both cervix and uterus; Z90.49 Acquired absence of other specified parts of digestive tract; Z85.41 Personal history of malignant neoplasm of cervix uteri; Z80.8 Family history of malignant neoplasm of other organs or systems; Z91.19 Patient's noncompliance with other medical treatment and regimen; Z88.0 Allergy status to penicillin; Z88.1 Allergy status to other antibiotic agents; Z88.2 Allergy status to sulfonamides; Z88.6 Allergy status to analgesic agent; Z88.8 Allergy status to other drugs, medicaments and biological substances; Z79.899 Other long term (current) drug therapy; Z79.82 Long term (current) use of aspirin; Z79.4 Long term (current) use of insulin
CPT/HCPCS: 36415; 36600; 70450; 80048; 80053; 80305; 80320; 81001; 82803; 82948; 83036; 83605; 83735; 84100; 85008; 85018; 85025; 87081; 93005; 94760; 96374; 96376; 99291; G0378; J1644; J1815; J2405; J7030

== ENCOUNTER 2021-11-08 20:42 | Inpatient (IN) | payer MEDICAID ==
[~2021-11-08] VITALS: Ht 172.7 cm; Wt 71.5 kg
[~2021-11-08 20:42] MED LIST changes: -LEVO500T89 PO; -ONDA4TAB6 PO; -POTA10TA36 PO; +POTA10TA37 PO
[2021-11-08 22:18] LABS: ALANINE AMINOTRANSFERASE 40 U/L (12-78); ALBUMIN 4.2 G/DL (3.4-5.0); ALKALINE PHOSPHATASE 152 IU/L (46-116); ANION GAP 32 (8-16); ASPARTATE AMINO TRANSFERASE 27 U/L (10-37); BILIRUBIN,TOTAL 0.6 MG/DL (0.1-1.0); BLOOD UREA NITROGEN 29 MG/DL (7-18); BUN/CREATININE RATIO 19.7 (6.6-38.0); CALCIUM 9.3 MG/DL (8.5-10.1); CHLORIDE 89 MMOL/L (99-107); CREATININE 1.47 MG/DL (0.40-0.90); LIPASE < 50 U/L (73-393); POTASSIUM 5.5 MMOL/L (3.5-5.1); SODIUM 129 MMOL/L (135-145); TOTAL PROTEIN 8.4 G/DL (6.4-8.2); eGFR 37 ML/MIN
[2021-11-08 22:20] LABS: GLUCOSE 587 MG/DL (70-104)
[2021-11-08 22:21] LABS: TOTAL CARBON DIOXIDE 8.2 MMOL/L (24-32)
[2021-11-08] MEDS: normal saline 1000ml 1,000 ML IV SCH ×2 (22:45→23:46)
[2021-11-08] MEDS ORDERED: sodium phosphate inj. 30 MMOL in dextrose 5%-water 250 ML IV PRN (22:50)
[2021-11-08] MEDS ORDERED: sodium phosphate inj. 15 MMOL in dextrose 5%-water 250 ML IV PRN (22:50)
[2021-11-08] MEDS ORDERED: potassium CL 20mEq in D5-1/2NS 1,000 ML IV PRN (22:50)
[2021-11-08] MEDS ORDERED: potassium Cl 20 mEq SR tablet PO PRN ×2 (22:50)
[2021-11-08] MEDS ORDERED: normal saline 1000ml 1,000 ML IV SCH (22:50)
[2021-11-08] MEDS ORDERED: insulin regular, human U-100 3ml vial - multi-dose IV PRN (22:50)
[2021-11-08] MEDS ORDERED: potassium Cl 40MEQ/1/2NS 520ml 520 ML IV PRN ×2 (22:50)
[2021-11-08] MEDS ORDERED: Neutra Phos packet PO PRN (22:50)
[2021-11-08 22:52] LABS: BASOPHILS # (AUTO) 0.1 X10'3 (0-0.2); BASOPHILS % (AUTO) 0.4 % (0-1); EOSINOPHILS % (AUTO) 0 % (0-6); LYMPHOCYTES # (AUTO) 1.4 X10'3 (1.1-4.8); LYMPHOCYTES % (AUTO) 10.9 % (21-51); MEAN PLATELET VOLUME 9.8 FL (7.4-10.4); MONOCYTES # (AUTO) 0.5 X10'3 (0-0.9); NEUTROPHILS # (AUTO) 10.7 X10'3 (1.8-7.7); NEUTROPHILS % (AUTO) 84.7 % (42-75); PLATELET COUNT 285 X10'3 (140-440); WHITE BLOOD COUNT 12.6 X10'3 (4.5-11.0)
[2021-11-08] MEDS ORDERED: haloperidol lactate 5mg/ml inj IM ONE (23:00)
[2021-11-08] MEDS ORDERED: diphenhydrAMINE 50 mg/ml inj IV ONE (23:00)
[2021-11-08] MEDS ORDERED: metoclopramide 5 mg/ml inj IV ONE (23:15)
[2021-11-08 23:20] LABS: PHOSPHORUS 6.9 MG/DL (2.3-4.5)
[2021-11-08 23:31] LABS: RED BLOOD COUNT 5.51 X10'6 (4.20-5.60)
[2021-11-08 23:32] LABS: HEMATOCRIT 47.3 % (35.0-45.0); HEMOGLOBIN 16.2 g/dl (12.0-16.0); MEAN CORPUSCULAR HEMOGLOBIN 29.3 PG (27.0-31.0); MEAN CORPUSCULAR HGB CONC 34.1 g/dL (33.0-36.5); RED CELL DISTRIBUTION WIDTH 15.2 % (11.5-14.5)
[2021-11-09] MEDS: Insulin Reg/NS 100units/100mL 100 ML IV SCH ×2 (01:21→18:50)
[2021-11-09] MEDS ORDERED: insulin regular, human 10 units/0.1 ml syringe IV ONE (02:00)
[2021-11-09] MEDS ORDERED: diphenhydrAMINE 25mg capsule PO PRN (03:10)
[2021-11-09] MEDS ORDERED: HYDROcodone/acetaminophen 10/325mg tab PO PRN (03:10)
[2021-11-09] MEDS ORDERED: magnesium 4gm in 100ml NS 100 ML IV PRN (03:10)
[2021-11-09] MEDS ORDERED: acetaminophen 650mg rectal suppository RC PRN (03:10)
[2021-11-09] MEDS ORDERED: magnesium Cl slow-release 64mg tablet PO PRN (03:10)
[2021-11-09] MEDS ORDERED: bisacodyl 10mg suppository rectal RC PRN (03:10)
[2021-11-09] MEDS ORDERED: magnesium 2GM in 50ml NS 50 ML IV PRN (03:10)
[2021-11-09] MEDS ORDERED: ondansetron 4mg rapidly disintigrating tab PO PRN (03:10)
[2021-11-09] MEDS ORDERED: acetaminophen 325mg tablet PO PRN ×2 (03:10)
[2021-11-09] MEDS ORDERED: HYDROcodone/acetaminophen 5mg/325mg tablet PO PRN (03:10)
[2021-11-09] MEDS ORDERED: magnesium hydroxide 30ml (MOM) UD suspension PO PRN (03:10)
[2021-11-09] MEDS ORDERED: mag hydrox/Alum hydrox/simeth 30ml oral suspension PO PRN (03:10)
[2021-11-09] MEDS ORDERED: morphine 2 MG/ML inj. syringe IV PRN (03:10)
[2021-11-09] MEDS ORDERED: potassium Cl 20 mEq SR tablet PO PRN ×2 (03:10)
[2021-11-09] MEDS ORDERED: potassium CL 10mEq/100ml bag 100 ML IV PRN (03:10)
[2021-11-09] MEDS ORDERED: diphenhydrAMINE 50 mg/ml inj IV PRN (03:10)
[2021-11-09 03:17] LABS: URINE HCG NEGATIVE (NEG)
[2021-11-09] MEDS ORDERED: dextrose 5%-1/2 normal saline 1,000 ML IV SCH (03:45)
[2021-11-09 03:50] LABS: ABG BASE EXCESS -6.1 mmol/L (-2.0-2.0); ABG HCO3 18.2 mmol/L (22.0-26.0); ABG OXYGEN SATURATION 96.1 % (94-97); ABG PCO2 (T) 32.4 mmHg (32.0-45.0); ABG PO2 (T) 77.7 mmHg (75.0-100.0); ALLEN'S TEST POSITIVE; FCOHb 0.3 % (0.0-3.9); FO2Hb 95.8 % (94-97); TOTAL HEMOGLOBIN 12.4 G/dl (12.0-16.0)
[2021-11-09 04:10] LABS: CLARITY,URINE CLEAR (Clear); COLOR,URINE YELLOW (Yellow); GLUCOSE, URINE 500 mg/dl (Neg); KETONES,URINE >=80 mg/dl (Neg); LEUKOCYTE ESTERASE ,URINE NEGATIVE (Neg); NITRITES, URINE NEGATIVE (Neg); OCCULT BLOOD,URINE NEGATIVE (Neg); PROTEIN,URINE NEGATIVE (Neg); UA COLLECTION TYPE STRAIGHT CATH; UROBILINOGEN,URINE 0.2 E.U/dL (0.2-1.0)
[2021-11-09 05:27] LABS: APTT 25 SECONDS (22-32)
[2021-11-09 05:34] LABS: HEMOGLOBIN A1C 9.6 % (4.5-6.2)
[2021-11-09 05:37] LABS: CREATINE KINASE 74 U/L (26-192); MAGNESIUM 2.6 MG/DL (1.5-2.4); POTASSIUM 3.7 MMOL/L (3.5-5.1)
[2021-11-09] MEDS: docusate sod 100mg capsule PO SCH ×2 (06:48→19:25)
--- NOTE | 2021-11-09 06:54 | NUR ---
PT CBG 102; INSULIN HELD; CMP ORDERED TO BE DRAWN STAT.
[2021-11-09 07:56] LABS: ALANINE AMINOTRANSFERASE 35 U/L (12-78); ALBUMIN 2.8 G/DL (3.4-5.0); ALKALINE PHOSPHATASE 93 IU/L (46-116); ANION GAP 7 (8-16); ASPARTATE AMINO TRANSFERASE 11 U/L (10-37); BILIRUBIN,TOTAL 0.3 MG/DL (0.1-1.0); BLOOD UREA NITROGEN 22 MG/DL (7-18); BUN/CREATININE RATIO 25.3 (6.6-38.0); CALCIUM 7.1 MG/DL (8.5-10.1); CHLORIDE 110 MMOL/L (99-107); CREATININE 0.87 MG/DL (0.40-0.90); GLUCOSE 84 MG/DL (70-104); POTASSIUM 3.7 MMOL/L (3.5-5.1); SODIUM 140 MMOL/L (135-145); TOTAL CARBON DIOXIDE 22.8 MMOL/L (24-32); TOTAL PROTEIN 5.7 G/DL (6.4-8.2); eGFR 68 ML/MIN
[2021-11-09] MEDS ORDERED: K and/or MAG REPLACEMENT MC SCH (08:00)
[2021-11-09] MEDS: K and/or MAG REPLACEMENT MC SCH ×2 (08:00→19:44)
--- NOTE | 2021-11-09 09:46 | NUR ---
page sent to PICC RN IV access pt has no lines that are patent
--- NOTE | 2021-11-09 10:01 | NUR ---
Page sent: PAGER ID: [phone] MESSAGE: [phone]- Juana Ferrari. New admit from ER. fist BG on the floor was 36. Insulin Gtt stopped per protocol. D5 1/2 NS going at 250 ml per hour ( max). Patient treated, will recheck BG in a few minutes. BMP ordered for now. Advise.
[2021-11-09 11:02] LABS: ALBUMIN 2.7 G/DL (3.4-5.0); BLOOD UREA NITROGEN 24 MG/DL (7-18); BUN/CREATININE RATIO 27.9 (6.6-38.0); CREATININE 0.86 MG/DL (0.40-0.90); GLUCOSE 146 MG/DL (70-104); TOTAL CARBON DIOXIDE 19.9 MMOL/L (24-32); eGFR 69 ML/MIN
[2021-11-09 11:04] LABS: ANION GAP 10 (8-16); CHLORIDE 109 MMOL/L (99-107); SODIUM 139 MMOL/L (135-145)
[2021-11-09] MEDS: ondansetron/PF 4mg/2ml inj IV PRN (11:55)
[2021-11-09] MEDS: morphine 2 MG/ML inj. syringe IV PRN ×2 (11:57→22:02)
[2021-11-09] MEDS: normal saline 1000ml 1,000 ML IV SCH ×3 (13:10→23:10)
[2021-11-09] MEDS ORDERED: FURO20TA4 PO (14:55)
[2021-11-09] MEDS ORDERED: LIDO28.35 TOP (14:55)
[2021-11-09] MEDS ORDERED: ALEN70TA80 PO (14:55)
[2021-11-09 15:10] LABS: ALBUMIN 2.7 G/DL (3.4-5.0); ANION GAP 6 (8-16); BLOOD UREA NITROGEN 16 MG/DL (7-18); BUN/CREATININE RATIO 24.2 (6.6-38.0); CALCIUM 7.2 MG/DL (8.5-10.1); CHLORIDE 108 MMOL/L (99-107); CREATININE 0.66 MG/DL (0.40-0.90); GLUCOSE 133 MG/DL (70-104); POTASSIUM 4.4 MMOL/L (3.5-5.1); SODIUM 138 MMOL/L (135-145); TOTAL CARBON DIOXIDE 23.6 MMOL/L (24-32); eGFR > 90 ML/MIN
[2021-11-09] MEDS: pantoprazole 40MG/NS 100ML BAG 100 ML IV SCH (16:14)
--- NOTE | 2021-11-09 16:58 | NUR ---
Page Sent promotional table spacer PAGER ID: [phone] MESSAGE: [id number] Juana Ferrari. Home medication list has been reconciled. please address at your convenience please. patient is asking for some of her home meds. she has ese and concepcion sh'e s asking for. Bhakti [phone]
[2021-11-09] MEDS ORDERED: temazepam 15mg capsule PO PRN (21:00)
[2021-11-09] MEDS ORDERED: insulin Lispro (HumaLOG) vial - multi-dose SQ SCH (21:50)
[2021-11-09] MEDS ORDERED: MESSAGE TO PHARMACY PO ONE (22:00)
[2021-11-09] MEDS ORDERED: glucagon, human recombinant 1mg kit SUBCUT PRN (22:00)
[2021-11-09] MEDS ORDERED: dextrose ORAL solution 15 GM/59 ML bottle PO PRN ×2 (22:00)
[2021-11-09] MEDS ORDERED: dextrose 50%-water 50ml dispensing syringe IV PRN ×2 (22:00)
--- NOTE | 2021-11-10 02:53 | NUR ---
This is a 51-year-old female admitted 11/09/2021, day 1 of hospitalization, Multiple allergies, Full code, no isolation, PMH of type 1 diabetes mellitus, history of chronic kidney disease, atrial fibrillation on Eliquis at home history of diastolic CHF ejection fraction 62% in 2019, history of dyslipidemia, GERD, chronic pain syndrome on home opioids, diverticulosis, multiple allergies, presented today to emergency department chief complaint nausea vomiting associated with chest pain; in addition this is a patient who presents to the emergency department with nausea and sternal chest pain. Patient states that she became dehydrated yesterday last evening around 11 PM she developed nausea some vomiting she developed some pain in the lower part of her sternum she states the pain is moderate and persistent. She describes some chills. Patient states she continued to have nausea and vomiting today and then presented to the emergency department. Patient has a long list of chronic medical problems. She denies any shortness of breath. Her symptoms are moderate and persistent. No additional concerns or complaints. Currently, pt is afebrile, AAO times 4, follows all commands, moves all extremities, c/o abdominal pain, medicated with Morphine 20 mg IV. Continues to to be agitated at times. HR 78 SR 150/80, weak pulses, EF 62%. IVF infusing via RFA #20, f/p intact. Pt pulled out her other IV said she did not need it. RR 16 PO 98% RA, Breath sounds diminished, equal symmetrical, non labored. Hypoactive bowel sounds, soft mild tenderness upper quads, Carb control diet. Glucose check AC/HS, Level 3, Lantus started at 2100. HS glucose 269 covered with 3 units NovoLog. Skin intact. Pt remains safe. Continue to monitor. Addendum: 11/10/21 at 0501 by Bert Pérez RN Pt is becoming more agitated and verbally abusive, pt was medicated for pain times 2. Wanted her Zayas out so Zayas was removed. pt is crying stating she is not getting good care, stating people are talking about her. Said shes going to leave in the morning. I have been in the room all night and found her on her phone talking and texting. She states she has no water, however, she has had 3 pitchers of water during the coarse of the evening. She continues to manipulate her IV lines. Stated her phone was missing, stated we took her phone, I told her was in her bed, it was in her crotch, she said i put it there deliberately.
[2021-11-10 04:03] VITALS: BP 91/49
[2021-11-10] MEDS: morphine 2 MG/ML inj. syringe IV PRN ×2 (04:53→08:44)
[2021-11-10 06:00] VITALS: BP 113/67
--- NOTE | 2021-11-10 07:04 | NUR ---
Patient in room PCU 3012. I have received report from CARLA Gooden and had the opportunity to ask questions and assume patient care.
[2021-11-10 07:33] LABS: BASOPHILS % (AUTO) 0.7 % (0-1); EOSINOPHILS # (AUTO) 0.2 X10'3 (0-0.9); EOSINOPHILS % (AUTO) 2.2 % (0-6); HEMATOCRIT 32.7 % (35.0-45.0); HEMOGLOBIN 10.9 g/dl (12.0-16.0); LYMPHOCYTES # (AUTO) 2.5 X10'3 (1.1-4.8); LYMPHOCYTES % (AUTO) 35.3 % (21-51); MEAN CORPUSCULAR HGB CONC 33.4 g/dL (33.0-36.5); MEAN CORPUSCULAR VOLUME 86.7 FL (78-98); MEAN PLATELET VOLUME 9.1 FL (7.4-10.4); MONOCYTES # (AUTO) 0.5 X10'3 (0-0.9); NEUTROPHILS # (AUTO) 3.8 X10'3 (1.8-7.7); NEUTROPHILS % (AUTO) 54.8 % (42-75); PLATELET COUNT 164 X10'3 (140-440); RED BLOOD COUNT 3.78 X10'6 (4.20-5.60); RED CELL DISTRIBUTION WIDTH 15.9 % (11.5-14.5)
[2021-11-10 08:24] LABS: ALANINE AMINOTRANSFERASE 48 U/L (12-78); ALBUMIN 2.7 G/DL (3.4-5.0); ALKALINE PHOSPHATASE 87 IU/L (46-116); ANION GAP 6 (8-16); ASPARTATE AMINO TRANSFERASE 51 U/L (10-37); BILIRUBIN,TOTAL 0.2 MG/DL (0.1-1.0); BLOOD UREA NITROGEN 13 MG/DL (7-18); BUN/CREATININE RATIO 18.6 (6.6-38.0); CALCIUM 7.3 MG/DL (8.5-10.1); CHLORIDE 108 MMOL/L (99-107); CHOL/HDL RATIO 2.9 (0.00-4.99); CHOLESTEROL 147 MG/DL (0-200); GLUCOSE 165 MG/DL (70-104); HDL CHOLESTEROL 50 MG/DL (35-60); LDL CHOLESTEROL 67 MG/DL (50-100); POTASSIUM 4.4 MMOL/L (3.5-5.1); SODIUM 137 MMOL/L (135-145); TOTAL CARBON DIOXIDE 23.5 MMOL/L (24-32); TOTAL PROTEIN 5.3 G/DL (6.4-8.2); TRIGLYCERIDES 131 MG/DL (20-135); eGFR 88 ML/MIN
[2021-11-10] MEDS: docusate sod 100mg capsule PO SCH (08:34)
[2021-11-10] MEDS: pantoprazole 40MG/NS 100ML BAG 100 ML IV SCH (08:35)
[2021-11-10] MEDS: ondansetron/PF 4mg/2ml inj IV PRN (08:44)
[2021-11-10] MEDS ORDERED: ONDA4TAB12 PO (09:19)
[2021-11-10 11:00] VITALS: BP 116/64
[2021-11-10] MEDS ORDERED: insulin glargine (Lantus) pen - multi-dose SQ SCH (21:00)
== END 2021-11-10 12:37 | disposition home or self-care (01) | DRG 420 ==
LOC: ER 20:42 → ED HOLD 11-09 03:14 → EDBEDREQ 11-09 06:24 → PCU 3S 11-09 07:20
PROVIDERS: ADMIT Family Medicine; ATTEND Internal Medicine
DX: E10.10 Type 1 diabetes mellitus with ketoacidosis without coma (principal); I50.33 Acute on chronic diastolic (congestive) heart failure; N17.9 Acute kidney failure, unspecified; E83.39 Other disorders of phosphorus metabolism; E86.0 Dehydration; E87.1 Hypo-osmolality and hyponatremia; I48.91 Unspecified atrial fibrillation; E78.00 Pure hypercholesterolemia, unspecified; E78.5 Hyperlipidemia, unspecified; E86.1 Hypovolemia; E87.5 Hyperkalemia; N18.9 Chronic kidney disease, unspecified; E10.22 Type 1 diabetes mellitus with diabetic chronic kidney disease; G89.4 Chronic pain syndrome; J45.909 Unspecified asthma, uncomplicated; F32.A Depression, unspecified; F41.9 Anxiety disorder, unspecified; K21.9 Gastro-esophageal reflux disease without esophagitis; K57.90 Diverticulosis of intestine, part unspecified, without perforation or abscess without bleeding; Z56.0 Unemployment, unspecified; Z79.01 Long term (current) use of anticoagulants; Z79.4 Long term (current) use of insulin; Z85.41 Personal history of malignant neoplasm of cervix uteri; Z90.710 Acquired absence of both cervix and uterus; Z88.0 Allergy status to penicillin; Z88.2 Allergy status to sulfonamides; Z88.8 Allergy status to other drugs, medicaments and biological substances; Z90.49 Acquired absence of other specified parts of digestive tract; Z79.899 Other long term (current) drug therapy
CPT/HCPCS: 36000; 36415; 36600; 71045; 74018; 76937; 80048; 80053; 80061; 81003; 81025; 82550; 82803; 82948; 83036; 83605; 83690; 83735; 83880; 84100; 84145; 84484; 85018; 85025; 85610; 85730; 87040; 87081; 93005; 96361; 96372; 96374; 96375; 99285; C9113; G0378; J1200; J1630; J1815; J2270; J2405; J2765; J7030; J7042

== ENCOUNTER 2022-04-09 18:04 | Emergency (ER) | payer MEDICAID ==
[~2022-04-09] VITALS: Ht 170.2 cm; Wt 69.0 kg
[~2022-04-09 18:04] MED LIST changes: +ALEN70TA80 PO; +FURO20TA4 PO; +LIDO28.35 TOP
[2022-04-09] MEDS ORDERED: dextrose 50%-water 50ml dispensing syringe IV ONE ×2 (19:04→19:10)
[2022-04-09] MEDS ORDERED: ondansetron/PF 4mg/2ml inj IV ONE (19:15)
[2022-04-09] MEDS ORDERED: dextrose 5%-normal saline 1,000 ML IV ONE (19:15)
[2022-04-09 19:38] LABS: BASOPHILS # (AUTO) 0.1 X10'3 (0-0.2); BASOPHILS % (AUTO) 0.6 % (0-1); EOSINOPHILS # (AUTO) 0.5 X10'3 (0-0.9); EOSINOPHILS % (AUTO) 4.5 % (0-6); HEMATOCRIT 38.9 % (35.0-45.0); HEMOGLOBIN 12.8 g/dl (12.0-16.0); LYMPHOCYTES # (AUTO) 3.5 X10'3 (1.1-4.8); LYMPHOCYTES % (AUTO) 33.8 % (21-51); MEAN CORPUSCULAR HEMOGLOBIN 28.1 PG (27.0-31.0); MEAN CORPUSCULAR HGB CONC 32.9 g/dL (33.0-36.5); MEAN CORPUSCULAR VOLUME 85.7 FL (78-98); MEAN PLATELET VOLUME 9.4 FL (7.4-10.4); MONOCYTES # (AUTO) 0.7 X10'3 (0-0.9); MONOCYTES % (AUTO) 7.1 % (2-12); NEUTROPHILS # (AUTO) 5.6 X10'3 (1.8-7.7); PLATELET COUNT 244 X10'3 (140-440); RED BLOOD COUNT 4.54 X10'6 (4.20-5.60); RED CELL DISTRIBUTION WIDTH 15.9 % (11.5-14.5); WHITE BLOOD COUNT 10.3 X10'3 (4.5-11.0)
[2022-04-09 19:48] LABS: ALANINE AMINOTRANSFERASE 35 U/L (12-78); ALBUMIN 3.7 G/DL (3.4-5.0); ALBUMIN/GLOBULIN RATIO 1.1 (1.1-1.5); ALKALINE PHOSPHATASE 87 IU/L (46-116); ANION GAP 3 (8-16); ASPARTATE AMINO TRANSFERASE 24 U/L (10-37); BILIRUBIN,TOTAL 0.4 MG/DL (0.1-1.0); BLOOD UREA NITROGEN 20 MG/DL (7-18); BUN/CREATININE RATIO 29.9 (6.6-38.0); CALCIUM 9.1 MG/DL (8.5-10.1); CHLORIDE 106 MMOL/L (99-107); CREATININE 0.67 MG/DL (0.40-0.90); LIPASE < 50 U/L (73-393); MAGNESIUM 2.3 MG/DL (1.5-2.4); POTASSIUM 3.6 MMOL/L (3.5-5.1); SODIUM 141 MMOL/L (135-145); TOTAL CARBON DIOXIDE 32.4 MMOL/L (24-32); TOTAL PROTEIN 7.1 G/DL (6.4-8.2); eGFR > 90 ML/MIN
[2022-04-09 19:51] LABS: ETHANOL < 0.010 GM/DL (0.0-0.010)
[2022-04-09 19:53] LABS: GLUCOSE 35 MG/DL (70-104)
[2022-04-09] MEDS ORDERED: normal saline 1000ML IV soln IVB ONE (20:40)
[2022-04-09] MEDS ORDERED: morphine 2 MG/ML inj. syringe IV PRN (20:40)
[2022-04-09] MEDS ORDERED: LORazepam 2 mg/ml vial IV ONE (20:40)
[2022-04-09] MEDS ORDERED: levoFLOXACIN-Levaquin 250mg/D5 50 ML IV SCH (20:49)
[2022-04-10] MEDS ORDERED: ONDA4TAB12 PO (00:27)
[2022-04-10] MEDS ORDERED: dextrose 5%-normal saline 1,000 ML IV ONE (00:55)
[2022-04-10 01:25] VITALS: BP 128/82
[2022-04-10] MEDS ORDERED: levoFLOXACIN-Levaquin 250mg/D5 50 ML IV SCH (08:00)
== END 2022-04-10 01:27 | disposition home or self-care (01) ==
LOC: ER 18:05
DX: E11.649 Type 2 diabetes mellitus with hypoglycemia without coma (principal); E78.00 Pure hypercholesterolemia, unspecified; I50.9 Heart failure, unspecified; K21.9 Gastro-esophageal reflux disease without esophagitis; J45.909 Unspecified asthma, uncomplicated; G89.29 Other chronic pain; F41.9 Anxiety disorder, unspecified; F32.9 Major depressive disorder, single episode, unspecified; I48.91 Unspecified atrial fibrillation; R10.9 Unspecified abdominal pain; Z90.49 Acquired absence of other specified parts of digestive tract; Z90.710 Acquired absence of both cervix and uterus; Z98.890 Other specified postprocedural states; Z56.0 Unemployment, unspecified; Z88.0 Allergy status to penicillin; Z88.1 Allergy status to other antibiotic agents; Z88.2 Allergy status to sulfonamides; Z88.6 Allergy status to analgesic agent; Z79.82 Long term (current) use of aspirin; Z79.4 Long term (current) use of insulin; Z79.899 Other long term (current) drug therapy
CPT/HCPCS: 36415; 80053; 80320; 82948; 83690; 83735; 85025; 96365; 96366; 96368; 96375; 96376; 99285; J1956; J2060; J2405; J3490; J7030; J7042

== ENCOUNTER 2022-09-23 09:16 | Emergency (ER) | payer MEDICAID ==
[~2022-09-23] VITALS: Ht 170.2 cm; Wt 75.5 kg
[~2022-09-23 09:16] MED LIST changes: +POTA-206 PO; -POTA10TA37 PO
[2022-09-23] MEDS ORDERED: normal saline 1000ML IV soln IVB ONE (10:00)
[2022-09-23 10:16] VITALS: BP 163/85
[2022-09-23 10:44] LABS: CLARITY,URINE CLEAR (Clear); COLOR,URINE STRAW (Yellow); GLUCOSE, URINE >=1000 mg/dl (Neg); KETONES,URINE 15 mg/dl (Neg); LEUKOCYTE ESTERASE ,URINE NEGATIVE (Neg); NITRITES, URINE NEGATIVE (Neg); OCCULT BLOOD,URINE NEGATIVE (Neg); PROTEIN,URINE NEGATIVE (Neg); UROBILINOGEN,URINE 0.2 E.U/dL (0.2-1.0)
[2022-09-23 10:46] LABS: UA COLLECTION TYPE NON-SPECIFIED
[2022-09-23 10:52] LABS: URINE AMPHETAMINE SCREEN NEGATIVE (Neg); URINE BARBITUATE SCREEN NEGATIVE (Neg); URINE BENZODIAZEPINES SCREEN NEGATIVE (Neg); URINE CANNABINOID SCREEN NEGATIVE (Neg); URINE COCAINE SCREEN NEGATIVE (Neg); URINE METHADONE SCREEN NEGATIVE (Neg); URINE OPIATE SCREEN POSITIVE (Neg); URINE PHENCYCLIDINE SCREEN NEGATIVE (Neg)
[2022-09-23 10:53] LABS: BACTERIA,URINE FEW /HPF (Neg)
[2022-09-23 10:54] LABS: MUCUS STRANDS NONE SEEN /LPF (Neg); SQUAMOUS EPITHELIAL CELL,UR FEW /LPF (FEW)
[2022-09-23 10:59] LABS: RBC,URINE NONE SEEN /HPF (0-2); WBC,URINE NONE SEEN /HPF (0-4)
[2022-09-23 11:08] LABS: BASOPHILS # (AUTO) 0.1 X10'3 (0-0.2); BASOPHILS % (AUTO) 0.6 % (0-1); EOSINOPHILS # (AUTO) 0.2 X10'3 (0-0.9); EOSINOPHILS % (AUTO) 1.9 % (0-6); HEMATOCRIT 41.5 % (35.0-45.0); HEMOGLOBIN 13.4 g/dl (12.0-16.0); LYMPHOCYTES # (AUTO) 1.1 X10'3 (1.1-4.8); LYMPHOCYTES % (AUTO) 13.1 % (21-51); MEAN CORPUSCULAR HGB CONC 32.4 g/dL (33.0-36.5); MEAN CORPUSCULAR VOLUME 89.5 FL (78-98); MEAN PLATELET VOLUME 9.3 FL (7.4-10.4); MONOCYTES # (AUTO) 0.6 X10'3 (0-0.9); MONOCYTES % (AUTO) 7.6 % (2-12); NEUTROPHILS # (AUTO) 6.3 X10'3 (1.8-7.7); NEUTROPHILS % (AUTO) 76.8 % (42-75); PLATELET COUNT 188 X10'3 (140-440); RED BLOOD COUNT 4.64 X10'6 (4.20-5.60); RED CELL DISTRIBUTION WIDTH 15.6 % (11.5-14.5); WHITE BLOOD COUNT 8.2 X10'3 (4.5-11.0)
[2022-09-23 11:25] LABS: ALANINE AMINOTRANSFERASE 72 U/L (12-78); ALBUMIN 3.8 G/DL (3.4-5.0); ALKALINE PHOSPHATASE 160 IU/L (46-116); ANION GAP 14 (8-16); ASPARTATE AMINO TRANSFERASE 17 U/L (10-37); BILIRUBIN,TOTAL 0.9 MG/DL (0.1-1.0); BLOOD UREA NITROGEN 27 MG/DL (7-18); BUN/CREATININE RATIO 28.1 (6.6-38.0); CALCIUM 8.9 MG/DL (8.5-10.1); CHLORIDE 95 MMOL/L (99-107); CREATININE 0.96 MG/DL (0.40-0.90); ETHANOL < 0.010 GM/DL (0.0-0.010); POTASSIUM 5.4 MMOL/L (3.5-5.1); SODIUM 133 MMOL/L (135-145); TOTAL CARBON DIOXIDE 23.9 MMOL/L (24-32); TOTAL PROTEIN 7.6 G/DL (6.4-8.2); eGFR 61 ML/MIN
[2022-09-23 11:33] LABS: GLUCOSE 574 MG/DL (70-104)
[2022-09-23] MEDS ORDERED: insulin regular, human 10 units/0.1 ml syringe IV ONE (11:40)
[2022-09-23] MEDS ORDERED: albuterol 2.5 MG/3 ML nebule CONTNEB PRN (11:40)
--- NOTE | 2022-09-23 12:00 | NUR ---
PT YELLING AND SCREAMING ABOUT LOSING HER METER TO CHECK HER BLOOD SUGAR. PT STATES ALWAYS HAS IT AROUND HER NECK AND SHE NEEDS IT. SHE CAN'T BE SEPERATED FROM IT FOR OVER 20 MIN. INFORMED PT THAT WE WILL LOOK IN BED. PT STOOD UP. METER NOT IN BED. INFOMRED PT THAT THIS RN TOOK NOTHING OFF OF PT AND PT STATES WELL SOMEONE MUST HAVE. WENT AND SPOKE WITH CONSTRUCTION LABORER. CONSTRUCTION LABORER STATES SHE DID NOT REMOVE ANYTHING FOR CHEST XRAY AND NO METER WAS SHOWN ON XRAY. INFOMRED PT. PT CONTINUES TO BE UPSET. THEN STARTS SAYING WELL THE EMS MUST HAVE TAKEN IT. PT INFORMED THAT WE CAN GET [facility] MEDIC BUT MAYBE THEY LEFT IT AT HER HOUSE. PT WAS HAVING SON GO CHECK APARTMENT. PT THEN PROCEDED TO CALL 911 TO REPORT ABOUT THE METER. AGAIN TOLD PT WE WILL CALL EMS. CHARGE NURSE AWARE. DISPATCH CALLED AND PER DISPATCH WILL HAVE RIG CALL ER BACK ABOUT METER
--- NOTE | 2022-09-23 12:05 | NUR ---
SPLINT APPLIED TO LEFT WRIST. PT YELLING AND SCREAMING THAT HER WRIST HURTS AND IS UNCOMFORTABLE. INFOMRED PT THAT WRIST XRAY WAS NEGATIVE AND THE SPLINT WILL HELP WITH PAIN. PT CONTINUES TO YELL AND STATES THAT SHE CAN'T GET COMFORTABLE. PT REQUESTING WATER. PT GIVEN WATER PER REQUEST.
--- NOTE | 2022-09-23 12:20 | NUR ---
PT CONTINUES TO YELL THAT SHE IS DEHYRATED AND THAT SHE WANTS WATER. MORE WATER GIVEN. INFOMRED PT THAT WE ARE ALSO GIVING IV HYDRATION. DR CHILEL
--- NOTE | 2022-09-23 12:30 | NUR ---
PT YELLING AND SCREAMING, STATES I NEED FOOD. THAT IS HOW I BRING MY BLOOD SUGAR DOWN AT HOME. INFOMRED THAT PT IS NOT ALLOWED TO EAT AT THIS TIME AND PT WAS GIVEN INSULIN TO BRING SUGAR DOWN. PT STATES THAT IS NOT WHAT SHE DOES AT HOME
--- NOTE | 2022-09-23 12:45 | NUR ---
pt refused cont svn. pt is crying and is demanding food. rn is aware.
--- NOTE | 2022-09-23 13:11 | NUR ---
WENT TO DISCHARGE PT. PT YELLING AND SCREAMING STATES SHE CANT GO HOME BECAUSE HER SUGARS ARE 500 LEVEL. INFORMED PT THAT WE COVERED HER GLUCOSE AND GAVE FLUIDS. AND SINCE BLOOD SUGAR IS COMING DOWN IS OK TO GO HOME. PT THEN YELLS YOU CANT KICK ME OUT BECAUSE I DON'T HAVE A RIDE. I STATES WHO IS GOING TO YOUR APARTMENT TO CHECK IF YOUR METER IS THERE. PT THEN YELLS I DON'T FUKCING KNOW. INFOMRED PT THAT WE CAN GET EITHER TAXI OR BUS TICKET HOME. PT THEN YELLED WELL I AM JUST GOING TO FALL OUTSIDE SO I CAN ESTIVEN YOU AND BECAUSE MY SUGARS ARE HIGH AND I HAVEN'T ATE. INFOMRED PT THAT CAN GIVE SANDWHICH. PT CONTINUED YELLING. WENT TO PULL IV OUT OF RIGHT AC. PT THEN RIGHT AWAY RIPPED OFF BANDAGE SO SHE WOULD BLEED. INFOMRED PT THAT SHE NEEDS TO KEEP BANDAGE ON SO SHE DOESN'T BLEED. THEN PT STATES I WANT TO BLEED. PRESSURE PLACED ON RIGHT AC IV. PT THEN STARTED HITTING HEAD ON WALL. PT MOVED FROM WALL ONTO BED. BANDADGE APPLIED AGAIN TO RIGHT AC. THEN PT RIPPED IT BACK OFF. INFORMED THAT WE NEED TO REMOVE IV OUT OF RIGHT HAND. PT JUST RIPPED IV OUT AND STARTED BLEEDING. PT REFUSED TO LET US BANDAGE HAND. [facility] EMT AT BEDSIDE DURING EVENT. DR SEN CAME INTO SPEAK WITH PT. PT AGAIN YELLING AT MD THAT SHE NEEDS A SANDWHICH TO GET BLOOD SUGAR DOWN. DR SEN STATES THATS NOT HOW DIABETES WORKS. DR SEN AGAIN STATES IS OK FOR PT TO BE DISHCARGED. SECURITY AND CHARGE AT BEDSIDE AT THIS TIME. PT CONTINUES TO BLEED FROM RIGHT HAND AND CONTINUES TO REFUSE TO ALLOW BANDAGE TO RIGHT HAND. PT AGAIN CONTINUES TO YELL AND REFUSING TO LEAVE. PT THEN YELLS ABOUT NOT HAVING SHOES. INFOMRED PT THAT SHE DIDN'T HAVE SHOES ON WHEN SHE CAME INTO HOSPITAL. EMS HAD CALLED BACK DURING THIS AND STATES PT DID NOT HAVE METER ON WHEN THEY PICKED HER UP. STATES EVERYTHING SHE HAD ON PLACED IN PLASTIC BAG. PLASTIC BAG WAS PREVIOUSLY GIVEN TO PT. PT STATES MY METER ISN'T IN THERE. PT ESCORTED BY SECURITY TO EXIT WITH STEADY GAIT.
== END 2022-09-23 13:25 | disposition home or self-care (01) ==
LOC: ER 09:16
DX: S63.502A Unspecified sprain of left wrist, initial encounter (principal); E10.65 Type 1 diabetes mellitus with hyperglycemia; E87.6 Hypokalemia; E86.0 Dehydration; G89.29 Other chronic pain; W19.XXXA Unspecified fall, initial encounter; Y93.89 Activity, other specified; Y92.89 Other specified places as the place of occurrence of the external cause; Y99.8 Other external cause status; I11.0 Hypertensive heart disease with heart failure; E78.00 Pure hypercholesterolemia, unspecified; K21.9 Gastro-esophageal reflux disease without esophagitis; M54.9 Dorsalgia, unspecified
CPT/HCPCS: 29260; 36415; 70450; 71045; 73110; 80053; 80305; 80320; 81001; 82140; 82948; 85025; 93005; 94644; 96361; 96374; 96375; 99285; J1815; J7030; L3908; 94760

== ENCOUNTER 2024-08-27 17:13 | Emergency (ER) | payer MEDICAID ==
[~2024-08-27] VITALS: Ht 170.2 cm; Wt 80.9 kg
[~2024-08-27 17:13] MED LIST changes: -INSU100V43 SQ; +INSU100V49 SQ; +ONDA-243 PO; -ONDA4TAB12 PO
[2024-08-27 17:18] VITALS: BP 170/87; PULSE 111; RESP 18; O2SAT 98
[2024-08-27 17:28] VITALS: TEMP 99.9
== END 2024-08-27 17:30 ==
LOC: ER 17:14
DX: F15.10 Other stimulant abuse, uncomplicated (principal); K21.9 Gastro-esophageal reflux disease without esophagitis; I50.9 Heart failure, unspecified; G89.29 Other chronic pain; E78.00 Pure hypercholesterolemia, unspecified; E11.9 Type 2 diabetes mellitus without complications; I48.91 Unspecified atrial fibrillation; J45.909 Unspecified asthma, uncomplicated; Z88.1 Allergy status to other antibiotic agents; Z88.0 Allergy status to penicillin; Z88.2 Allergy status to sulfonamides; Z88.5 Allergy status to narcotic agent; Z88.6 Allergy status to analgesic agent; Z88.8 Allergy status to other drugs, medicaments and biological substances; Z79.899 Other long term (current) drug therapy; Z85.41 Personal history of malignant neoplasm of cervix uteri; Z90.49 Acquired absence of other specified parts of digestive tract; Z90.710 Acquired absence of both cervix and uterus
CPT/HCPCS: 99283

== ENCOUNTER 2024-08-27 18:54 | Emergency (ER) | payer MEDICAID ==
[~2024-08-27] VITALS: Ht 170.2 cm; Wt 65.0 kg
[2024-08-27] MEDS: hydrOXYzine 25 MG tablet PO ONE (19:48)
[2024-08-27] MEDS: DEXTROSE 15 GM of carb/4 tabs (each vial/BOTTLE has 4 tablets) PO ONE (20:18)
[2024-08-27 20:33] VITALS: BP 146/84; PULSE 98; RESP 18; TEMP 98.3; O2SAT 98
== END 2024-08-27 20:35 ==
LOC: ER 18:55
DX: E11.649 Type 2 diabetes mellitus with hypoglycemia without coma (principal); F15.10 Other stimulant abuse, uncomplicated; I48.91 Unspecified atrial fibrillation; I50.9 Heart failure, unspecified; G89.29 Other chronic pain; E78.00 Pure hypercholesterolemia, unspecified; J45.909 Unspecified asthma, uncomplicated; K21.9 Gastro-esophageal reflux disease without esophagitis; Z88.0 Allergy status to penicillin; Z88.1 Allergy status to other antibiotic agents; Z88.2 Allergy status to sulfonamides; Z88.5 Allergy status to narcotic agent; Z85.41 Personal history of malignant neoplasm of cervix uteri; Z88.6 Allergy status to analgesic agent; Z88.8 Allergy status to other drugs, medicaments and biological substances; Z79.899 Other long term (current) drug therapy; Z90.49 Acquired absence of other specified parts of digestive tract; Z90.710 Acquired absence of both cervix and uterus
CPT/HCPCS: 82948; 99284